=== PATIENT | male | born 1950 | race Caucasian/White ===

== ENCOUNTER → 2018-08-29 07:31 | Outpatient (CLI) | payer BC, SELFPAY ==
--- NOTE | 2018-08-29 09:22 | CPS ---
TELEPHONE ORDER GIVEN FROM DR. MATT LARSON OFFICE TO DO A COMPLETE PFT INSTEAD OF JUST PRE/POST SPIROMETERY
--- NOTE | 2018-08-29 14:07 | PFT ---
INTRODUCTION: The patient is a 67-year-old male that presents for pulmonary function studies secondary to a diagnosis of abnormal chest x-ray. Respiratory therapy reports good patient effort. Bronchodilators were used during testing. INTERPRETATION: Forced expiration spirometry demonstrates no evidence of a large airways obstructive ventilatory defect. There was no significant response to aerosolized bronchodilators, based upon strict ATS criteria. Spirograms are of fair quality and do not plateau indicating slow emptying of the lungs. Body plethysmography was performed and reveals lung volumes to be within normal limits. Diffusing capacity by single breath CO is within normal limits at 91% of predicted. IMPRESSION: Normal pulmonary function studies.
== END ==
PROVIDERS: Family Provider Family Medicine; PCP Family Medicine; Referring Provider Family Medicine; Visit Provider Family Medicine
DX: R93.89 Abnormal findings on diagnostic imaging of other specified body structures (principal)
CPT/HCPCS: 94060; 94726; 94729

== ENCOUNTER → 2018-09-08 00:02 | Outpatient (CLI) | payer BC, SELFPAY | PROVIDERS: Family Provider Family Medicine; PCP Family Medicine; Referring Provider Internal Medicine Critical Care Medicine; Visit Provider Internal Medicine Critical Care Medicine | DX: G47.33 Obstructive sleep apnea (adult) (pediatric) (principal) | CPT/HCPCS: 95811 ==

== ENCOUNTER → 2019-03-02 15:55 | Outpatient (CLI) | payer BC, SELFPAY ==
--- NOTE | 2019-03-02 16:02 | VDLE_ITS ---
Reason For Study: pain RIGHT LEFT CFV is compressible, spontaneous, phasic, GSV is normal. competent and demonstrates normal CFV is compressible, spontaneous, phasic, augmentation. competent, and demonstrates normal Procedure augmentation. Exam performed in department. FV is compressible, spontaneous, phasic, The exam was diagnostic. competent and demonstrates normal A preliminary report was called and/or faxed augmentation. to Dr. Esparza. POP V is compressible, spontaneous, phasic, competent and demonstrates normal augmentation. T/P Trunk is compressible. PTV is compressible. LT PerV is compressible. Interpretation Summary Deep veins of the left lower extremity are patent and compressible segmentally. There is no evidence of left lower extremity deep vein thrombosis. Valvular competence appears intact within the proximal deep venous system on the left . The left greater saphenous vein appears patent and compressible segmentally. Ordering Physician: Cyril Esparza Performed By: Jaret Mercer RVUriah
== END ==
PROVIDERS: Family Provider Family Medicine; PCP Family Medicine; Referring Provider Specialist; Visit Provider Specialist
DX: M79.662 Pain in left lower leg (principal)
CPT/HCPCS: 93971

== ENCOUNTER 2020-01-13 13:05 | Emergency (ER) | payer MEDICARE, SELFPAY ==
[2020-01-13 13:07] VITALS: BP 144/87; PULSE 97; RESP 18; TEMP 36.2; O2SAT 98; BMI 34.7
--- NOTE | 2020-01-13 13:09 | EKG12_ITS ---
Test Reason : DYSRHYTHMIA Blood Pressure : / mmHG Vent. Rate : 089 BPM Atrial Rate : 089 BPM P-R Int : 122 ms QRS Dur : 126 ms QT Int : 408 ms P-R-T Axes : 018 -45 -01 degrees QTc Int : 496 ms Normal sinus rhythm Left axis deviation Right bundle branch block Abnormal ECG Confirmed by JAYNE BELTRE, LIZABETH ([id number]), assignment desk editor PATRICIA QUINTANILLA ([id number]) on 01/16/2020 1:08:27 PM Referred By: EDINSON Confirmed By:LIZABETH GODOY MD
--- NOTE | 2020-01-13 13:09 | RAD_ITS ---
STUDY: X-RAY CHEST REASON FOR EXAM: Male, 69 years old. Chest pain, confusion TECHNIQUE: AP upright chest COMPARISON: None. FINDINGS: The lungs are clear, symmetrically and normally inflated. Normal cardiomediastinal silhouette, js and pleural margins. No acute osseous or upper abdominal abnormality. RAD/Chest 1 View (Portable) IMPRESSION: No acute cardiopulmonary process. Electronically Signed: Demetrio Castro MD at 14:17 EDT Tel , Service support ,
--- NOTE | 2020-01-13 13:10 | CT_ITS ---
STUDY: CT BRAIN WITHOUT CONTRAST REASON FOR EXAM: Male, 69 years old. CONFUSION RADIATION DOSAGE (If Supplied By Facility): CTDIvol = ( 44.99 ) mGy, DLP = ( 846.73 ) mGycm TECHNIQUE: Transaxial CT imaging of the brain was performed without administration of intravenous contrast material. Individualized dose optimization techniques were used for this CT. COMPARISON: No relevant priors. FINDINGS: Normal size ventricles and extra-axial spaces for the patient''s age. Normal white matter tracts of the cerebral hemispheres. Normal brainstem. Normal cerebellum. There is no intracranial hemorrhage. There are no findings of an acute ischemic infarction. Normal visualized paranasal sinuses. CT/Brain/Head without Contrast IMPRESSION: Normal unenhanced CT scan of the brain. Electronically Signed: Millicent Ag MD at 14:23 EDT Tel , Service support ,
[2020-01-13 13:16] LABS: Bedside Glucose 103 mg/dL (70-110)
--- NOTE | 2020-01-13 13:19 | ED.VIS.GEN ---
History of Present Illness Chief Complaint: Confusion Informant: Patient, Family Onset: Days Current Severity: Mild Maximum Severity: Mild Narrative: Patient presents with reports that for the last month or so the patient has developed intermittent episodes of confusion what where he does not know recognize things that he normally would. She indicates today he woke everything was normal had breakfast they were getting ready to go out he went into the shower took a shower came out of the shower did not recognize why he had taken the shower where they were going or that his clothing had been taken out by himself this lasted for about 10 minutes or so, he was brought to the hospital. No time did he injure himself, he is had no fever no cough chest pain shortness of breath no numbness weakness paresthesias, he has no history of MD PE DVT stroke or seizure, The reports that over the course of the last month he will simply not remember things such as he will not remember the day of the week and have to refer to his watch to tell him what day of the week it is, he is able to execute all of his daily living activities such as dressing eating bathing etc. He is very active he constantly does a variety of around the house type activities without difficulty Past Medical History - Allergies and Home Meds Allergies/Adverse Reactions: Allergies rivaroxaban [From Xarelto] Adverse Reaction (Intermediate, Verified 01/13/20 13:20) Rash cephalexin [From Keflex] Adverse Reaction (Mild, Verified 01/13/20 13:20) Rash clindamycin Adverse Reaction (Mild, Verified 01/13/20 13:20) GI upset Primary Care Physician: Nils Hernandez MD [Primary Care Provider] - Past Medical History: - - Psoriatic arthritis and as above Smoking Status: Former smoker Review of Systems General: Denies: Chills, Fever, Sweats Eyes: Denies: Visual changes - bilaterally, Diplopia ENT: Denies: Rhinorrhea, Sore throat Cardiovascular: Denies: Chest pain, Palpitations Respiratory: Denies: Dyspnea, Cough, Dyspnea on exertion Gastrointestinal: Denies: Abdominal pain, Nausea, Vomiting, Diarrhea, Melena, Hematochezia Genitourinary: Denies: Dysuria, Hematuria, Frequency Musculoskeletal: Denies: Back pain, Extremity Pain Skin: Denies: Rash, Wounds Neurological: Reports: - - Intermittent episodes of transient confusion. Denies: Headache, Weakness, Numbness Physical Exam Vital Signs/Narrative: Vital Signs Temp Pulse Resp BP Pulse Ox 01/13/20 13:07 97.1 F L 97 18 144/87 H 98 General: Well nourished, Well developed, No Acute Distress Head: Normocephalic, Atraumatic Eyes: Perrl, EOMI ENT: Moist mucous membranes, No rhinorrhea Neck: Supple, Nontender Cardiovascular: Regular rate, Regular rhythm, No murmurs Respiratory: No distress, CTA bilaterally, Chest nontender Abdomen: Soft, Nontender, Nondistended, Normal bowel sounds Back: Nontender, Normal Inspection Extremities: Nontender, No edema Skin: Normal color, No rash Neurological: Alert, Oriented x3, Cranial nerves II-XII grossly intact, Normal Strength, Normal Sensation, - - Patient is awake and alert moving all 4 extremities, his speech is normal vision is normal HEENT cranial nerves motor or sensory all negative NIH 0,He is awake and alert answering questions appropriately he has no obvious signs of confusion or any type of neurologic deficits. He does remember being in the shower he does not remember the confusion he had when he got out of the shower related to where his close were or why he could not remember where they were going and why he was taking a shower reports he is back to his baseline neurologically Psychological: Normal affect, Normal Mood Diagnostic/Tx/Re-eval - Medical Decision Making Transient confusion and intermittent episodes for over a month given all the above screening labs he has no headache no fever no cough he is able to execute all daily activities head CT Patient's ED screening evaluation head CT all generally unremarkable nothing acute see those reports, he has not provided a urine sample, he indicates he does not have any UTI symptoms and simply does not feel the urge to void the has asked him to try to void as she would like to check before he leaves, His EKG shows a sinus rhythm with a right bundle branch block that he is had before per the who is a dietitian is very familiar with his health status Patient is remained awake and alert no recurrence of the confusion we discussed with the patient his the differential including life-threatening conditions discussed inpatient versus outpatient management they are comfortable with discharge home to follow-up with outpatient providers for additional diagnostic management he will return for change in symptoms I have asked the afternoon physicians to check his UA if there is any signs of UTI he will be placed on Cipro and the urine culture will be sent, he is currently drinking [employer] Home stable Final impression transient confusion episodes for a month intermittently etiology unclear ED Disposition - Plan for ED Patient: Diagnosis: Transient confusion Instructions: ED Confusion Prescriptions: Ciprofloxacin [Cipro] 500 mg PO BID #14 tab Prescription Printed Referrals: Nils Hernandez MD [Primary Care Provider] -
[2020-01-13 13:20] VITALS: O2SAT 97
--- NOTE | 2020-01-13 13:24 | ED.RN ---
no old ekgs. dr rome notified
[2020-01-13 13:27] LABS: Absolute Lymphocyte Count 1.72 X10^3/uL (0.83-4.51); Absolute Neutrophil Count 3.6 X10^3/uL (2.0-7.7); Basophil# 0.03 X10^3/uL; Basophil% 0.5 % (0-1); Eosinophil# 0.18 X10^3/uL; Eosinophils% 2.9 % (0-5); Hematocrit 44.8 % (40-54); Hemoglobin 14.4 g/dL (13.0-16.5); Lymphocyte # 1.72 X10^3/ul (4.0); Lymphocyte % 27.9 % (19-41); Mean Corp Hgb Conc 32.1 g/dL (32-36); Mean Corpuscular Hgb 29.8 pg (27.0-32.0); Mean Corpuscular Volume 92.6 fL (80-94); Mean Platelet Vol. 8.9 fl (6.2-12.0); Monocyte# 0.58 X10^3/uL; Monocyte% 9.4 % (0-10); NRBC Flagged by Analyzer 0 % (0-5); Neutrophil # 3.61 X10^3/uL (2.7-7.7); Neutrophil % 58.7 % (47-70); Platelet Count 317 K/mm3 (150-450); RBC Distribution Width CV 13.6 % (11.6-14.6); RBC Distribution Width SD 46.5 fl (35.1-43.9); Red Blood Count 4.84 M/mm3 (4.6-6.2); White Blood Count 6.2 K/mm3 (4.4-11.0)
[2020-01-13 13:40] LABS: Anion Gap 6 (5-15); BUN 11 mg/dL (7-18); BUN/Creat Ratio 14.1 RATIO (10-20); Calcium,Total 8.8 mg/dL (8.5-10.1); Chloride 107 mmol/L (98-107); Creatinine, Serum 0.78 mg/dL (0.70-1.30); EST Glomerular Filtration Rate 105 mL/min (>60); Est Glom Filt Rate - Afr Amer 127 mL/min (>60); Estimated Creatinine Clearance 85.67 ml/min; Glucose 108 mg/dL (74-106); Potassium 3.8 mmol/L (3.5-5.1); Sodium Level 141 mmol/L (136-145)
[2020-01-13 13:49] LABS: BNP,B-Type NATRIURETIC PEPTIDE 21.7 pg/mL (0-100)
[2020-01-13 14:39] VITALS: BP 114/91; PULSE 88; RESP 17; O2SAT 96
[2020-01-13 15:23] LABS: Bacteria 0 SEEN /hpf (None Seen); Mucous, Urine 0 SEEN /hpf (<or=2+); Red Blood Cells-Urine 0 SEEN /hpf (0-5)
[2020-01-13 15:28] LABS: Glucose, Dipstick Normal (Normal); Ketone-Dipstick Negative (Negative); Leukocyte Esterase-Dipstick 25 /ul (Negative); Nitrite-Dipstick Negative (Negative); Occult Blood-Urine Negative /ul (Negative); Protein-Dipstick Negative (Negative); Specific Gravity, Urine 1.025 (1.002-1.030); Urine Bilirubin Dipstick Negative (Negative); Urine Urobilinogen Normal (Normal)
[2020-01-13 15:39] LABS: Color, Urine Yellow (Yellow)
[2020-01-13 15:40] LABS: Squamous Epithelial Cells - UA 0-5 SEEN /hpf (0-5); Urine Clarity Sl Cldy (Clear); White Blood Cells 0-5 SEEN /hpf (0-5)
[2020-01-13 16:25] VITALS: BP 118/91; PULSE 80; RESP 17; O2SAT 98
== END 2020-01-13 16:27 | disposition home or self-care (01) ==
LOC: ED 14:45
PROVIDERS: Emergency Provider Emergency Medicine; PCP Family Medicine
DX: R41.0 Disorientation, unspecified (principal); L40.50 Arthropathic psoriasis, unspecified; Z79.899 Other long term (current) drug therapy; Z88.1 Allergy status to other antibiotic agents; Z87.891 Personal history of nicotine dependence
CPT/HCPCS: 70450; 71045; 80048; 81001; 82962; 83880; 84484; 85025; 93005; 99284

== ENCOUNTER → 2020-01-15 16:16 | Outpatient (CLI) | payer MEDICARE, OTHER, SELFPAY ==
[2020-01-13 13:07] VITALS: BMI 34.7
--- NOTE | 2020-01-15 16:45 | MRI_ITS ---
STUDY: MRI BRAIN WITHOUT CONTRAST REASON FOR EXAM: Male, 69 years old. Episode of AMS 3 days ago TECHNIQUE: Standardized multiplanar fat and water weighted pulse sequences were obtained. COMPARISON: CT 01/13/2020 FINDINGS: Normal size of the ventricles and extra-axial spaces for the patient''s age. Normal white matter tracts of the supratentorial brain. Normal bilateral basal ganglia. Normal thalami. There is no extra-axial fluid accumulation. Normal flow voids within the major intracranial circulation suggesting patency by spin echo criteria. Normal sella turcica, pituitary gland, infundibular stalk, optic chiasm and hypothalamus. Normal tectal plate and pineal gland. Normal midbrain, shantell and medulla. Normal cerebellum. Normal basal cisterns. Normal bilateral temporal bones. Normal bilateral internal auditory canals. No demonstrated orbital abnormality, within the constraints of a routine brain study. Normal visualized paranasal sinuses. Normal calvarium and skull base. Normal visualized soft tissue structures. Normal visualized upper cervical spine. MRI/Brain without Contrast IMPRESSION: No evidence of acute infarct or hemorrhage. Electronically Signed: Vicente Anguiano MD at 17:41 EDT Tel , Service support ,
== END ==
PROVIDERS: PCP Family Medicine; Referring Provider Family Medicine; Visit Provider Family Medicine
DX: F44.1 Dissociative fugue (principal)
CPT/HCPCS: 70551

== ENCOUNTER 2020-10-07 13:00 | Outpatient (RCR) | payer MEDICARE, OTHER, SELFPAY ==
[2020-05-22 08:15] VITALS: BMI 34.9
--- NOTE | 2020-07-23 12:24 | HP.OTEVAL ---
Patient's Visit Information NASH FERGUSON is a 69 year old M, referred to Occupational Therapy by DIVINA SERRA, with a diagnosis of left wrist SLAC. Date of Evaluation: 07/23/20 Occupational Therapist: Joy Nava, HELDER/Chandrika, CHT - Subjective This 69 year old male was seen for OT with dx of SLAC of left wrist. pt states sx was on where he did a CTR and proximal row carpectamy. pt arrives to center with soft left wrist cock -up brace on. Pt sates he is probably using it more than he should. pt is right handed. pt is swollen and tight - Pain left wrist 4 Pain Intensity Range: 0, 3 - ROM Elbow: right 0/140 left 0/140 Forearm: right supination 50 left 75 suppination Wrist: right 70 /60 left 25/30 ROM Comments: pt demo with fair ROM - Strength Stem Processing Machine Operator: right 80# left will test later date Lateral Pinch: right 19# left will test later date Tripod Pinch: right 18# left will test later date - Edema Elbow: right 30cm left 29cm Wrist: right 20cm left 22cm PIP: right 7.5cm left 7.5cm Other: right MCP 23cm left 24.5cm - Sensation Thumb: right 3.22 left 2.83 Index: right 3.61 left 3.22 Middle: right 2.83 left 3.22 Ring: right 2.83 left 2.83 Little: right 2.83 left 2.83 - Quick DASH-Disab of Arm,Shoulder& Hand Quick DASH Score: 52.2725 - Goals Goal:100% adherence to protocol: Yes Goal:Daily scar massage when approriate: Yes Goal:ROM equal to unaffected hand: Yes Comment: wrist at 45/35 or greate as joaquin Goal:Stem Processing Machine Operator/Pinch strength at least 75% of unaffected hand: Yes Goal:No pain with affected hand use: Yes Goal:PIP Circumferences equal to unaffected hand: Yes Goal:Full use of affected hand in daily activities including: Yes Goal:Decrease scar hypersensitivity: Yes Other Goal: s/p 4 wks transition to cock-up wrist brace and begin gentle AROM wrist. s/p 6wks begin PROM wrist and wean from brace. s/p 8 wks begin strengthening - Rehabilitation General Assessment: pt is 5 weeks and 1 days s/p from a left ulnar nerve and median nerve release and a left proximal row carpectamy. pt has swelling and discomfort with use of his left hand with ADLs and IADLs. pt would benefit from skilled OT services 1-2 x week for [address] Rhodes. s/p 4 wks transition to cock-up wrist brace and begin gentle AROM wrist. s/p 6wks begin PROM wrist and wean from brace. s/p 8 wks begin strengthening Rehabilitation Potential: Good - Anticipated Interventions A/AAROM/PROM, Edema Control, Scar Care, Triggerpoint Release, Desensitization, Sensory Retraining, Modalities, Orthoses, Joint Protection/Energy Conservation, Ergonomic Education - Visit Plan Frequency: 1-2x /Week TEXT: Thank you for the opportunity to evaluate your patient. For Medicare and Medicare HMO plans, please review the plan of care and approve it. It will need to be FAXED BACK to us at [phone] for Medicare purposes. Please let me know if there are questions or concerns regarding this plan of care. Physician Signature: Date:
--- NOTE | 2020-10-07 13:29 | HP.OTDCSUM_ITS ---
It has been my pleasure to treat NASH FERGUSON under orders from DIVINA SERRA, for the diagnosis of left wrist SLAC for a total of 12 visit(s). Please see the following information for a summary of their discharge status. % Improvement: 90 Objective/Function: left research project coordinator strength 38#. left lateral pinch 8#. left tripod pinch 6#. wrist 30/35. pt states he is performing all his ADls and IADls. states he does wear his wrist brace with yard work and heavy house work. Due to cmc pain with daily tasks pt is using k-tape to support CMC - pt likes this and states tape makes his tumb feel more stable. with monofilament testing pts IF and MF sensation has improved to 2.83 = normal sensation. therapist has advised pt to continue with ADLs to what pts pain level allows. Patient Goals: Decrease Swelling/Stiffness, Use Hand/Wrist/Arm Normally Again Goal:100% adherence to protocol: Yes Goal:Daily scar massage when approriate: Yes Goal:ROM equal to unaffected hand: Yes Goal:Pointing Machine Operator/Pinch strength at least 75% of unaffected hand: Yes Goal:No pain with affected hand use: Yes Goal:PIP Circumferences equal to unaffected hand: Yes Goal:Full use of affected hand in daily activities including: Yes Goal:Decrease scar hypersensitivity: Yes Other Goal: s/p 4 wks transition to cock-up wrist brace and begin gentle AROM wrist. s/p 6wks begin PROM wrist and wean from brace. s/p 8 wks begin strengthening Plan: D/C Discharge Comments: pt has been seen 12 OT visits following a left wrist proximal row carpectamy, and left CTR swelling is down but pt continues to stuggles with some edema but per pt he had swelling prior to procerdure. pt has gained ROM and strength to perform his ADLs and IADLs at SRINATH level. pt therapsit ed. pt on his dx and procedure and to cont with joint protection in daily tasks to limit joint stress. pt demo understanding and agree to D/C. If there are questions or concerns regarding this patient's occupational therapy, please fell free to call me at [phone]. Thank you for the referral of this patient. Sincerely, Joy Nava, OTR/L, CHT
== END 2020-10-07 13:47 | disposition home or self-care (01) ==
LOC: OT 13:00
PROVIDERS: PCP Family Medicine
DX: M19.132 Post-traumatic osteoarthritis, left wrist (principal); Z98.890 Other specified postprocedural states
CPT/HCPCS: 97110; 97140; 97166; 97530

== ENCOUNTER 2020-10-15 16:25 | Emergency (ER) | payer MEDICARE, OTHER, SELFPAY ==
[2020-05-22 08:15] VITALS: BMI 34.9
[2020-10-15 16:27] VITALS: BP 134/101; PULSE 102; RESP 17; TEMP 36; O2SAT 97; BMI 35.4
[2020-10-15 16:29] VITALS: BP 134/101; PULSE 104; RESP 17; O2SAT 96
--- NOTE | 2020-10-15 17:19 | CT_ITS ---
STUDY: CT ABDOMEN AND PELVIS WITH CONTRAST REASON FOR EXAM: Male, 69 years old. Scrotal swelling, pain RADIATION DOSAGE (If Supplied By Facility): CTDIvol = ( 24.86 ) mGy, DLP = ( 2310.15 ) mGycm TECHNIQUE: Transaxial images were obtained from the dome of the diaphragm to the symphysis pubis without oral contrast. IV 100mL Isovue-300 was administered. Sagittal and coronal images were reconstructed. Individualized dose optimization techniques were used for this CT. COMPARISON: None. FINDINGS: The visualized lung bases are unremarkable. The visualized portions of the heart are within normal limits. There is hepatomegaly with diffuse hepatic enlargement. Normal gallbladder and extrahepatic biliary system. Normal spleen. There is 1.9 cm cyst at the tail of the pancreas, series 2 image 20/171. There is 2.1 cm left adrenal nodule. There are 0.2 and 0.4 cm stones in the lower aspect of the right kidney. There is 1.8 cm cyst of the left kidney. Normal visualized stomach. Normal small intestine. There are multiple colonic diverticula consistent with diverticulosis. The appendix is visualized and appears normal. Atherosclerotic calcific changes of the aorta. 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 Normal inferior vena cava. Normal retroperitoneum. Normal urinary bladder. There is no free fluid in the abdomen or pelvis. There are bilateral scrotal hydroceles. Inguinal and iliac lymph nodes measure up to 2.1 cm on the right. Degenerative change of the spine. Bilateral hip replacements. CT/Abdomen/Pelvis W IV Cont ONLY IMPRESSION: Right renal stones. No hydronephrosis. Colonic diverticulosis. No obstruction. Hepatomegaly. No biliary dilatation. Left adrenal nodule. Scrotal hydroceles. Electronically Signed: Deep De La Cruz MD at 20:13 EDT , Service support ,
--- NOTE | 2020-10-15 17:21 | US_ITS ---
STUDY: SCROTUM ULTRASOUND REASON FOR EXAM: Male, 69 years old. Swelling .pain- RT TESTICLE TECHNIQUE: Ultrasound evaluation of the scrotum was performed with color Doppler and static mccartney-scale imaging. COMPARISON: None. FINDINGS: RIGHT TESTICLE INTRATESTICULAR: There is a normal size of the right testicle. The right testicle measures 4.1 x 3.1 x 3.1 cm. There is a homogenous echotexture. There is increased arterial and increased venous vascularity. There is no demonstrated right testicular mass or cyst. EXTRATESTICULAR: The epididymis is enlarged. The epididymis head measures 1.6 cm. There is increased (hyperemic) vascularity of the epididymis. There is no demonstrated epididymal cystic structure. There is a large hydrocele with septations and debris. There is no demonstrated varicocele. There is no demonstrated extratesticular mass or cyst. There is scrotal skin thickening. LEFT TESTICLE INTRATESTICULAR: There is a normal size of the left testicle. The left testicle measures 4.0 x 3.0 x 2.3 cm. There is a homogenous echotexture. There is normal arterial and normal venous vascularity. There is no demonstrated left testicular mass or cyst. EXTRATESTICULAR: The epididymis is normal in size. The epididymis head measures 1.2 cm. There is normal vascularity of the epididymis. There is no demonstrated epididymal cystic structure. There is a moderate size hydrocele. There is no demonstrated varicocele. There is no demonstrated extratesticular mass or cyst. US/Testicular with Arterial Flow IMPRESSION: Right epididymoorchitis. Right larger than left hydroceles. Electronically Signed: Deep De La Cruz MD at 20:08 EDT , Service support ,
[2020-10-15] MEDS: Morphine 4 MG/ML Syringe IV (17:39)
[2020-10-15] MEDS: 0.9% Normal Saline 1,000 ML 1000 ML IV (17:39)
[2020-10-15 18:06] LABS: Absolute Lymphocyte Count 1.61 X10^3/uL (0.83-4.51); Basophil# 0.05 X10^3/uL; Basophil% 0.4 % (0-1); Eosinophil# 0.06 X10^3/uL; Eosinophils% 0.5 % (0-5); Hematocrit 43.6 % (40-54); Lymphocyte # 1.61 X10^3/ul (4.0); Lymphocyte % 12.8 % (19-41); Mean Corp Hgb Conc 32.1 g/dL (32-36); Mean Corpuscular Hgb 29.6 pg (27.0-32.0); Mean Corpuscular Volume 92.2 fL (80-94); Mean Platelet Vol. 9.1 fl (6.2-12.0); Monocyte# 0.82 X10^3/uL; Monocyte% 6.5 % (0-10); NRBC Flagged by Analyzer 0 % (0-5); Neutrophil # 9.96 X10^3/uL (2.7-7.7); Neutrophil % 79.3 % (47-70); Platelet Count 318 K/mm3 (150-450); RBC Distribution Width CV 13.7 % (11.6-14.6); RBC Distribution Width SD 46.6 fl (35.1-43.9); Red Blood Count 4.73 M/mm3 (4.6-6.2); White Blood Count 12.6 K/mm3 (4.4-11.0)
--- NOTE | 2020-10-15 18:15 | ED.DCSUM_ITS ---
History of Present Illness Chief Complaint: Male Pain/Injury Informant: Patient Onset: Yesterday Context: Gradual Onset Timing: Continuous Narrative: Patient is a 69-year-old male with history of diabetes mellitus and psoriasis presenting with worsening testicular pain and swelling. Is on the left side. He first noticed it yesterday evening some mild pain when he was urinating. Over the next 3 to 4 hours it progressively worsens, or severe. He has had significant swelling. He saw his primary care doctor today who sent him to the emergency room for further evaluation. Patient denies any associated fever or c hills. He denies any dysuria or hematuria. He denies any GI symptoms. States he never had any like this before. Denies any trauma. No other complaints at this time. Past Medical History - Allergies and Home Meds Allergies/Adverse Reactions: Allergies rivaroxaban [From Xarelto] Adverse Reaction (Intermediate, Verified 10/15/20 16:27) Rash cephalexin [From Keflex] Adverse Reaction (Mild, Verified 10/15/20 16:27) Rash clindamycin Adverse Reaction (Mild, Verified 10/15/20 16:27) GI upset Primary Care Physician: Nils Hernandez MD [Primary Care Provider] - Past Medical History: - - Psoriatic arthritis, diabetes mellitus, obstructive sleep apnea Surgical History: noncontributory Smoking Status: Never smoker Review of Systems General: Reports: Malaise. Denies: Chills, Fever, Sweats Eyes: Denies: Visual changes - bilaterally, Diplopia ENT: Denies: Rhinorrhea, Sore throat Cardiovascular: Denies: Chest pain, Palpitations Respiratory: Denies: Dyspnea, Cough, Dyspnea on exertion Gastrointestinal: Denies: Abdominal pain, Nausea, Vomiting, Diarrhea, Melena, Hematochezia Genitourinary: Reports: - - testicular pain and swelling L>R. Denies: Dysuria, Hematuria, Frequency Musculoskeletal: Denies: Back pain, Extremity Pain Skin: Denies: Rash, Wounds Neurological: Denies: Headache, Weakness, Numbness Physical Exam Vital Signs/Narrative: Vital Signs Temp Pulse Resp BP Pulse Ox 10/15/20 16:29 104 H 17 134/101 H 96 10/15/20 16:27 96.8 F L 102 H 17 134/101 H 97 Inital Vital Signs reviewed: Yes General: Well nourished, Well developed, Obese, No Acute Distress Head: Normocephalic, Atraumatic Eyes: Perrl, EOMI ENT: Moist mucous membranes, No rhinorrhea Neck: Supple, Nontender Cardiovascular: Regular rate, Regular rhythm, No murmurs Respiratory: No distress, CTA bilaterally, Chest nontender Abdomen: Soft, Nontender, Nondistended, Normal bowel sounds : - - Significant edema of the scrotum bilaterally. Associated erythema. No crepitus or induration appreciated. Difficult to evaluate cremasteric reflex secondary to edema. Significant pain to palpation especially over the posterior aspect of the left testicle. Back: Nontender, Normal Inspection. Negative for: CVA tenderness Extremities: Nontender, No edema Skin: Normal color, No rash, - - Scattered psoriatic rash. Patient does have erythema of his testicles extending up towards his mons pubis. Patient's not sure if this is chronic from his psoriasis or if this is acute. Neurological: Alert, Oriented x3, Cranial nerves II-XII grossly intact, Normal Strength, Normal Sensation Psychological: Normal affect, Normal Mood Diagnostic/Tx/Re-eval Clinical Impression(s) from Imaging Studies Abdomen/Pelvis CT 10/15/20 17:19 IMPRESSION: Right renal stones. No hydronephrosis. Colonic diverticulosis. No obstruction. Hepatomegaly. No biliary dilatation. Left adrenal nodule. Scrotal hydroceles. Electronically Signed: Deep De La Cruz MD at 20:13 EDT , Service support , Testicular Ultrasound 10/15/20 17:21 IMPRESSION: Right epididymoorchitis. Right larger than left hydroceles. Electronically Signed: Deep De La Cruz MD at 20:08 EDT , Service support , Laboratory Data 10/15/20 10/15/20 10/15/20 17:30 17:30 19:02 WBC 12.6 H RBC 4.73 Hgb 14.0 Hct 43.6 MCV 92.2 MCH 29.6 MCHC 32.1 RDW Std Deviation 46.6 H RDW Coeff of Benjamní 13.7 Plt Count 318 MPV 9.1 Immature Gran % (Auto) 0.500 Neut % (Auto) 79.3 H Lymph % (Auto) 12.8 L Kemper % (Auto) 6.5 Eos % (Auto) 0.5 Baso % (Auto) 0.4 Absolute Neuts (auto) 10.0 H Absolute Lymphs (auto) 1.61 Nucleated RBC % 0 Sodium 139 Potassium 3.7 Chloride 103 Carbon Dioxide 31.0 Anion Gap 5 BUN 9 Creatinine 0.81 Estim Creat Clear Calc 105.77 Est GFR (MDRD) Af Amer 122 Est GFR (MDRD) Non-Af 101 BUN/Creatinine Ratio 11.1 Glucose 109 H Calcium 8.8 Total Bilirubin 0.80 AST 11 L ALT 27 Alkaline Phosphatase 94 Total Protein 7.4 Albumin 3.5 Globulin 3.9 Albumin/Globulin Ratio 0.9 Urine Color Yellow Urine Clarity Sl. Cloudy Urine pH 5.0 Ur Specific Rye 1.015 Urine Protein 15 H Urine Glucose (UA) Normal Urine Ketones Negative Urine Occult Blood 50 H Urine Nitrite Positive H Urine Bilirubin Negative Urine Urobilinogen Normal Ur Leukocyte Esterase 500 H Urine RBC 0-5 SEEN Urine WBC 50-100 SEEN Ur Squamous Epith Cells 0 SEEN Urine Bacteria RARE Urine Mucus 0 SEEN - Medical Decision Making Evaluated for pain and swelling of his testicles. Pain is worse on the left. Patient is significant edema as well as erythema of his scrotum. Patient does have a history of diabetes mellitus. Differential includes epididymitis, torsio n and possible early Dali's. Lactate obtained as well as ultrasound and CT of the abdomen pelvis. No free air was found. Evaluation does show a leukocytosis that is mild.CMP shows mild elevated glucose of 109. Urinalysis is consistent with inflammation with 50-100 white blood cells with rare bacteria. Ultrasound shows right epididymoorchitis and bilateral hydroceles. Patient is low risk for STI and placed on Levaquin. He is given first dose the emergency room. He is discharged home with a course of tramadol to use for pain as needed. He is given urology for outpatient follow-up. He is counseled on return precautions. Given that there is no free air, elevated lactate or other concerning findings on blood work or CT I do not think he has Dali's. Patient is counseled on return precautions. He verbalizes agreement understand this plan. Discharged home in stable condition. ED Disposition - Plan for ED Patient: Disposition: Home or Assisted Living Diagnosis: Epididymo-orchitis, acute Instructions: ED Epididymitis, ED Orchitis Prescriptions: levoFLOXacin tablet [Levaquin] 500 mg PO DAILY #20 tablet Transmission Status: Pending to [facility]/pharmacy #[id number] traMADol [Ultram] 50 mg PO Q4H PRN PRN 3 Days #20 tablet PRN Reason: Pain Transmission Status: Received by [facility]/pharmacy #[id number] Referrals: Nils Hernandez MD [Primary Care Provider] - Tom Douglas MD [STAFF PHYSICIAN] -
[2020-10-15 18:21] LABS: ALB/GLOB Ratio 0.9 RATIO (0.9-2.4); AST(SGOT) 11 U/L (15-37); Alanine Aminotransfer ALT/SGPT 27 U/L (16-61); Albumin, Serum 3.5 g/dL (3.2-5.0); Alkaline Phosphatase 94 U/L (45-117); Anion Gap 5 (5-15); BUN 9 mg/dL (7-18); BUN/Creat Ratio 11.1 RATIO (10-20); Calcium,Total 8.8 mg/dL (8.5-10.1); Chloride 103 mmol/L (98-107); Creatinine, Serum 0.81 mg/dL (0.70-1.30); EST Glomerular Filtration Rate 101 mL/min (>60); Est Glom Filt Rate - Afr Amer 122 mL/min (>60); Estimated Creatinine Clearance 105.77 ml/min; Globulin 3.9 g/dL (2.2-4.2); Glucose 109 mg/dL (74-106); Potassium 3.7 mmol/L (3.5-5.1); Protein, Total 7.4 g/dL (6.4-8.2); Sodium Level 139 mmol/L (136-145)
[2020-10-15 18:26] VITALS: BP 120/80; PULSE 96; RESP 18; O2SAT 97
[2020-10-15 19:09] LABS: Mucous, Urine 0 SEEN /hpf (<or=2+); Squamous Epithelial Cells - UA 0 SEEN /hpf (0-5)
[2020-10-15 19:14] LABS: Color, Urine Yellow (Yellow); Glucose, Dipstick Normal (Normal); Ketone-Dipstick Negative (Negative); Leukocyte Esterase-Dipstick 500 /ul (Negative); Nitrite-Dipstick Positive (Negative); Occult Blood-Urine 50 /ul (Negative); Protein-Dipstick 15 mg/dl (Negative); Specific Gravity, Urine 1.015 (1.002-1.030); Urine Bilirubin Dipstick Negative (Negative); Urine Clarity Sl. Cloudy (Clear); Urine Urobilinogen Normal (Normal)
[2020-10-15 19:20] LABS: White Blood Cells 50-100 SEEN /hpf (0-5)
[2020-10-15 19:21] LABS: Bacteria RARE /hpf (None Seen); Red Blood Cells-Urine 0-5 SEEN /hpf (0-5)
[2020-10-15 20:00] VITALS: BP 115/75; PULSE 95; RESP 18; O2SAT 98
[2020-10-15 21:43] VITALS: BP 121/81; PULSE 72; RESP 18; O2SAT 95
[2020-10-15] MEDS: levoFLOXacin 750 MG Tablet PO (21:48)
== END 2020-10-15 21:52 | disposition home or self-care (01) ==
PROVIDERS: Emergency Provider Emergency Medicine; PCP Family Medicine
DX: N45.3 Epididymo-orchitis (principal); N43.3 Hydrocele, unspecified; E11.65 Type 2 diabetes mellitus with hyperglycemia; L40.50 Arthropathic psoriasis, unspecified; G47.33 Obstructive sleep apnea (adult) (pediatric); E66.9 Obesity, unspecified; Z79.84 Long term (current) use of oral hypoglycemic drugs; Z79.82 Long term (current) use of aspirin; Z79.899 Other long term (current) drug therapy
CPT/HCPCS: 74177; 76870; 80053; 81001; 85025; 87040; 87077; 87086; 87088; 87186; 93976; 96361; 96374; 99284; J7030; Q9967

== ENCOUNTER 2021-08-21 14:54 | Outpatient (CLI) | payer MEDICARE, OTHER, SELFPAY ==
[2021-08-21 17:27] LABS: Absolute Lymphocyte Count 1.96 X10^3/uL (0.83-4.51); Absolute Neutrophil Count 4.1 X10^3/uL (2.0-7.7); Basophil# 0.05 X10^3/uL; Basophil% 0.7 % (0-1); Eosinophil# 0.14 X10^3/uL; Hematocrit 42.8 % (40-54); Hemoglobin 13.5 g/dL (13.0-16.5); Lymphocyte # 1.96 X10^3/ul (0.83-4.51); Lymphocyte % 28.4 % (19-41); Mean Corp Hgb Conc 31.5 g/dL (32-36); Mean Corpuscular Hgb 29.2 pg (27.0-32.0); Mean Corpuscular Volume 92.6 fL (80-94); Mean Platelet Vol. 9.5 fl (6.2-12.0); Monocyte# 0.58 X10^3/uL; Monocyte% 8.4 % (0-10); NRBC Flagged by Analyzer 0 % (0-5); Neutrophil # 4.11 X10^3/uL (2.7-7.7); Neutrophil % 59.8 % (47-70); Platelet Count 326 K/mm3 (150-450); RBC Distribution Width CV 14.5 % (11.6-14.6); RBC Distribution Width SD 49.1 fl (35.1-43.9); Red Blood Count 4.62 M/mm3 (4.6-6.2); White Blood Count 6.9 K/mm3 (4.4-11.0)
[2021-08-21 17:34] LABS: Erythrocyte Sedimentation Rate 25 mm/hr (0-20)
[2021-08-21 17:45] LABS: CRP 4.96 mg/L (0.0-3.0)
== END 2021-08-21 23:59 | disposition short-term general hospital (02) ==
PROVIDERS: PCP Family Medicine; Referring Provider Orthopaedic Surgery; Visit Provider Orthopaedic Surgery
DX: M16.12 Unilateral primary osteoarthritis, left hip (principal); Z96.642 Presence of left artificial hip joint
CPT/HCPCS: 36415; 85025; 85652; 86140

== ENCOUNTER → 2022-11-23 | Outpatient (CLI) | payer MEDICARE, OTHER, SELFPAY ==
--- NOTE | 2022-11-23 14:01 | ECHOD_ITS ---
Reason For Study: MURMUR Procedure This was a 2D Doppler, Color Flow transthoracic echocardiogram. The study was technically difficult. Due to body habitus. Contrast injection was performed. Exam performed in department. Left Ventricle Normal LV size. Mild concentric left ventricular hypertrophy. Left ventricular systolic function is normal. The estimated ejection fraction is 65 %. Stage 1 diastolic dysfunction. No regional wall motion abnormalities noted. Right Ventricle Normal RV size. Normal systolic function. Atria Normal left atrium. Normal right atrium. Mitral Valve Normal mitral valve. Tricuspid Valve Normal tricuspid valve. Aortic Valve Trisinus/trileaflet aortic valve. Mild diffuse aortic valve thickening. Pulmonic Valve Normal pulmonic valve. Great Vessels Normal aortic root. The pulmonary artery is normal size. Normal inferior vena cava. Pericardium/Pleural No pericardial effusion. Medication 22 gauge I.V. with prn adaptor inserted into right arm. Diluted definity 3.0ml given slow IV push to enhance endocardial definition. MMode/2D Measurements & Calculations LVIDd: 4.7 cm IVSd: 1.2 cm LVOT diam: 2.7 cm LVIDs: 2.5 cm LVPWd: 1.2 cm RVDd: 4.3 cm FS: 47.3 % LVOT area: 5.8 cm2 Ao root diam: 3.7 cm LAV(MOD-bp): 98.3 ml EDV(MOD-sp4): 120.4 ml LAV(MOD-bp) Indexed: 39.0 ml/m2 ESV(MOD-sp4): 32.4 ml LAV(MOD-sp2): 92.5 ml EF(MOD-sp4): 73.1 % LAV(MOD-sp4): 92.6 ml EDV(MOD-sp2): 101.3 ml SV(MOD-sp4): 88.1 ml SV(MOD-sp2): 78.0 ml ESV(MOD-sp2): 23.3 ml EF(MOD-sp2): 77.0 % LA dimension(2D): 5.2 cm Time Measurements MV dec time: 0.25 sec Doppler Measurements & Calculations MV E max thang: 104.9 cm/sec Lat Peak E' Thang: 6.9 cm/sec Med Peak E' Thang: 7.3 cm/sec MV A max thang: 113.1 cm/sec E/E' lat: 15.3 E/E' med: 14.5 MV E/A: 0.93 Ao V2 max: 261.5 cm/sec LV V1 max: 123.6 cm/sec SV(LVOT): 135.1 ml Ao max P.5 mmHg LV V1 max P.1 mmHg Ao V2 mean: 176.5 cm/sec LV V1 mean P.9 mmHg Ao mean P.3 mmHg LV V1 mean: 94.3 cm/sec Ao V2 VTI: 50.8 cm LV V1 VTI: 23.4 cm AV (velocity ratio): 0.46 ANITA(I,D): 2.7 cm2 ANITA(V,D): 2.7 cm2 PA V2 max: 128.0 cm/sec PA V2 mean: 88.7 cm/sec ECHO/Echo Complete W/ Contrast Interpretation Summary Normal LV size. Mild concentric left ventricular hypertrophy. Left ventricular systolic function is normal. The estimated ejection fraction is 65 %. Stage 1 diastolic dysfunction. Contrast injection was performed. Ordering Physician: Topher Poe Referring Physician: Josefina Schwarz Performed By: Veronica Moffett RDCS, RVT
== END | disposition home or self-care (01) ==
LOC: CVS 13:58
PROVIDERS: PCP Registered Nurse; Referring Provider Internal Medicine Cardiovascular Disease; Visit Provider Internal Medicine Cardiovascular Disease
DX: G47.33 Obstructive sleep apnea (adult) (pediatric) (principal); R01.1 Cardiac murmur, unspecified
CPT/HCPCS: 93306; Q9957; A4216; C8929

== ENCOUNTER → 2023-08-18 | Outpatient (CLI) | payer MEDICARE, OTHER, SELFPAY ==
--- OUTSIDE RECORDS SUMMARY | 2023-08-18 12:17 | XMS RPT_ITS | CCD ---
Author Name Unknown Address [address] [place] [address] Organization [facility] Care Team Providers Care Circulation Assistant Name Role Phone Matt Hernandez Unavailable Unavailable Unavailable Unavailable Matt Hernandez Unavailable Unavailable Matt Hernandez Unavailable Unavailable Matt Hernandez Unavailable Unavailable Matt Hernandez Unavailable Unavailable MATT HERNANDEZ Unavailable Unavailable Matt Hernandez Primary Care Provider Sarah Loera Primary Care Provider [phone] Matt Hernandez Primary Care Provider Matt Hernandez Primary Care Provider Mark Mason Unavailable [phone] Mark Mason Unavailable [phone] Matt Hernandez Primary Care Provider ISAI PAGE Attending Unavailable ISAI PAGE Referring Unavailable MATT HERNANDEZ Primary Care Unavailable ISAI PAGE Attending Unavailable ISAI PAGE Referring Unavailable MATT HERNANDEZ Primary Care Unavailable MARK MASON Attending Unavailable MARK MASON Referring Unavailable MATT HERNANDEZ Primary Care Unavailable Matt Hernandez Primary Care Provider Matt Hernandez Primary Care Provider Mark Mason Unavailable [phone] Matt Hernandez MD Primary Care Provider Mark Mason MD Unavailable MARTA FALL Primary Care Physician Makr Mason MD Unavailable System, Provider Not In Primary Care Provider Un available [facility] Matt Hernandez MD Primary Care Provider Mark Mason MD Unavailable [phone] System, Provider Not In Primary Care Provider Un available Matt Hernandez MD Primary Care Provider WAQAR PUBLIC SERVICE DIRECTOR-PATRON ATTENDANT, LETTY A Primary Care Physi waldo MARK MASON Attending Unavailable SYSTEM, PROVIDER NOT IN Primary Care Unavaila CATINA Estrada MD Attending Unavailable [employer] PUBLIC SERVICE DIRECTOR-PATRON ATTENDANT, LETTY A Primary Care Un available CATINA VANCE MD Attending Unavailable [employer] PUBLIC SERVICE DIRECTOR-PATRON ATTENDANT, LETTY A Primary Care Un available SEFFENS PUBLIC SERVICE DIRECTOR-PATRON ATTENDANT, LENKA Attending Fernando chacon [employer]AR PUBLIC SERVICE DIRECTOR-PATRON ATTENDANT, LETTY A Primary Care Un available [employer] PUBLIC SERVICE DIRECTOR-PATRON ATTENDANT, LETTY A Attending Un available [employer] PUBLIC SERVICE DIRECTOR-PATRON ATTENDANT, LETTY A Primary Care Un available [employer] PUBLIC SERVICE DIRECTOR-PATRON ATTENDANT, LETTY A Attending Un available [employer] PUBLIC SERVICE DIRECTOR-PATRON ATTENDANT, LETTY A Primary Care Un available [employer]AR PUBLIC SERVICE DIRECTOR-PATRON ATTENDANT, LETTY A Attending Un available [employer] PUBLIC SERVICE DIRECTOR-PATRON ATTENDANT, LETTY A Primary Care Un available Allergies Allergy Classification Reported Allergen(s) Allergy Type Date of Onset Reaction(s) Facility Cephalosporins (antibiotic) (1 source) Cephalexin Drug Allergy 6 Rash [facility] Lincosamides (antibiotic) (1 source) Clindamycin Drug Allergy 6 GI Intolerance [facility] Work Phone: rivaroxaban (1 source) rivaroxaban Drug Allergy 6 Rash [facility] (20 sources) cephalexin; Translations: [cephalexin] Propensity to adverse reactions to drug 6 Rash, Eruption of skin (disorder) [facility] Work Phone: (20 sources) clindamycin; Translations: [Unknown] Propensity to adverse reactions to drug 6 GI Intolerance [facility] Work Phone: (20 sources) rivaroxaban; Translations: [Xarelto TABS] Propensity to adverse reactions to drug 6 Rash [facility] Work Phone: (9 sources) rivaroxaban; Translations: [rivaroxaban] Drug Allergy Eruption of skin (disorder) [facility] (8 sources) Etanercept; Translations: [etanercept] Drug Allergy Rash [facility] (7 sources) methylPREDNISol one; Translations: [methylpredniso lone] Drug Allergy Facial redness, rash [facility] (8 sources) Grass Allergy to substance [facility] (8 sources) Pet Dander Allergy to substance [facility] (8 sources) pollen-tree Allergy to [facility] Medications Current Medications Medication Drug Class(es) Dates Sig (Normalized) Sig (Original) acetaminophen 300 mg / codeine phosphate 30 mg oral tablet (1 source) Opioid Agonist Start: 06-17-2020 End: 06-24-2020 take 1 tablet by mouth every four hours as needed for pain, then take 1 tablet by mouth as needed for pain acetaminophen-co deine (TYLENOL/CODEINE #3) 300-30 MG per tablet Indications: Wrist arthritis Take 1 tablet by mouth every 4 hours as needed for Pain for up to 7 days. Intended supply: 7 days. Take lowest dose possible to manage pain 42 tablet 0 06/17/2020 06/24/2020 Active ALPRAZolam 0.25 mg disintegrating oral tablet (1 source) Benzodiazepine Start: 06-17-2020 ALPRAZolam (NIRAVAM) dissolvable tablet 0.25 mg aspirin 81 mg delayed release oral tablet (20 sources) Nonsteroidal Anti-inflammatory Drug Start: 06-29-2021 aspirin 81 mg oral delayed release tablet Dose : 81 mg = 1 tab(s), Oral, Daily, 0 Refill(s) Start Date: 06/29/21 Status: Ordered Completed/Discontinued Medications Medication Drug Class(es) Dates Sig (Normalized) Sig (Original) acetaminophen 500 mg oral tablet (9 sources) Start: 06-17-2020 End: 06-17-2020 acetaminophen (TYLENOL) tablet 1,000 mg Problems Active Problems Problem Classification Problem Date Documented Date Episodic/Chronic Anxiety disorders (9 sources) Mixed anxiety and depressive disorder 06-28-2021 Chronic Aortic; peripheral; and visceral artery aneurysms (4 sources) Aneurysm of iliac artery 06-08-2022 Chronic Attention-deficit, conduct, and disruptive behavior disorders (20 sources) Attention deficit hyperactivity disorder, predominantly inattentive type; Translations: [Attention-deficit hyperactivity disorder, predominantly inattentive type] Onset: 05-01-2016 Resolved: 09-26-2016 06-21-2017 Chronic Calculus of urinary tract (12 sources) Kidney stone; Translations: [Calculus of kidney] 12-29-2021 Episodic Conduction disorders (9 sources) Right bundle branch block 07-06-2021 Chronic Diabetes mellitus with complications (20 sources) Microalbuminuric diabetic nephropathy; Translations: [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 2 diabetes mellitus] Onset: 10-04-2017 10-04-2017 Chronic Diabetes mellitus without complication (20 sources) Diabetes mellitus; Translations: [Type 2 diabetes mellitus without complication] Onset: 12-21-2016 12-21-2016 Chronic Disorders of lipid metabolism (20 sources) Hyperlipidemia; Translations: [Mixed hyperlipidemia] Onset: 05-01-2016 05-01-2016 Chronic Essential hypertension (11 sources) Hypertensive disorder; Translations: [Essential (primary) hypertension] Onset: 12-22-2022 06-28-2021 Chronic Genitourinary symptoms and ill-defined conditions (4 sources) Nocturia; Translations: [Nocturia] Episodic Hyperplasia of prostate (4 sources) Benign prostatic hypertrophy without outflow obstruction; Translations: [Hypertrophy (benign) of prostate without urinary obstruction and other lower urinary tract symptom (LUTS)] Chronic Osteoarthritis (20 sources) Osteoarthritis of knee; Translations: [Arthritis] Onset: 08-24-2016 06-21-2017 Chronic Other and ill-defined heart disease (4 sources) Left ventricular hypertrophy; Translations: [Cardiomegaly] Onset: 07-08-2021 Chronic Other ear and sense organ disorders (20 sources) Hearing loss; Translations: [Unspecified hearing loss, unspecified ear] Onset: 05-01-2016 05-01-2016 Chronic Other hereditary and degenerative nervous system conditions (8 sources) Restless legs 09-28-2021 Chronic Other inflammatory condition of skin (20 sources) Arthropathic psoriasis, unspecified; Translations: [Psoriatic arthritis] Onset: 08-24-2016 03-30-2018 Chronic Other inflammatory condition of skin (9 sources) Psoriasis 07-06-2021 Chronic Other nervous system disorders (1 source) Cubital tunnel syndrome; Translations: [Cubital tunnel syndrome on left] Chronic Other nervous system disorders (1 source) Carpal tunnel syndrome of left wrist; Translations: [Carpal tunnel syndrome of left wrist] Other non-traumatic joint disorders (7 sources) Arthritis; Translations: [Arthritis] Onset: 08-24-2016 08-24-2016 Chronic Other non-traumatic joint disorders (2 sources) Scapholunate advanced collapse; Translations: [Slac (scapholunate advanced collapse) of wrist, left] Chronic Other non-traumatic joint disorders (1 source) Arthritis of wrist; Translations: [Wrist arthritis] Chronic Other nutritional; endocrine; and metabolic disorders (20 sources) Body mass index 30+ - obesity; Translations: [Body mass index (BMI) 33.0-33.9, adult] Onset: 08-24-2016 11-13-2017 Chronic Other nutritional; endocrine; and metabolic disorders (3 sources) Obesity; Translations: [Class 1 obesity with body mass index (BMI) of 32.0 to 32.9 in adult] Onset: 08-24-2016 06-13-2018 Chronic Other screening for suspected conditions (not mental disorders or infectious disease) (11 sources) Imaging of thorax abnormal; Translations: [Abnormal findings on diagnostic imaging of other specified body structures] Onset: 08-17-2018 08-17-2018 Chronic Other skin disorders (8 sources) H/O: psoriasis 02-26-2017 Episodic Residual codes; unclassified (5 sources) Obstructive sleep apnea syndrome; Translations: [Obstructive sleep apnea (adult) (pediatric)] Chronic Residual codes; unclassified (1 source) History of decompression of median nerve; Translations: [S/P carpal tunnel release] Episodic Skin and subcutaneous tissue infections (18 sources) Cellulitis of lower leg; Translations: [Cellulitis of right lower limb] Onset: 06-13-2018 Resolved: 11-17-2018 06-13-2018 Episodic Transient cerebral ischemia (5 sources) Transient cerebral ischemia; 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] Chronic Unclassified (20 sources) Sleep apnea; Translations: [Sleep apnea, unspecified] Onset: 05-01-2016 05-01-2016 Chronic Unclassified (2 sources) Patient encounter status 12-22-2022 Past or Other Problems Problem Classification Problem Date Documented Da te Episodic/Chronic Conditions associated with dizziness or vertigo (17 sources) Dizziness; Translations: [Dizziness and giddiness] Onset: 07-22-2018 Resolved: 08-24-2018 07-22-2018 Episodic Heart valve disorders (20 sources) Heart murmur; Translations: [Cardiac murmur, unspecified] Onset: 07-05-2018 07-05-2018 Episodic Malaise and fatigue (20 sources) Fatigue; Translations: [Other fatigue] Onset: 05-01-2016 05-01-2016 Episodic Medical examination/evaluation (2 sources) Encounter for general adult medical examination without abnormal findings; Translations: [Encounter for general adult medical examination without abnormal findings] Onset: 03-24-2017 Episodic Other screening for suspected conditions (not mental disorders or infectious disease) (12 sources) Imaging of thorax abnormal; Translations: [Abnormal chest x-ray] Onset: 08-17-2018 08-17-2018 Episodic Residual codes; unclassified (15 sources) Transient altered mental status; Translations: [Disorientation, unspecified] Onset: 02-06-2020 02-06-2020 Episodic Spondylosis; intervertebral disc disorders; other back problems (20 sources) Low back pain; Translations: [Low back pain] Onset: 10-04-2017 10-04-2017 Episodic Varicose veins of lower extremity (20 sources) Varicose veins of lower extremity; Translations: [Asymptomatic varicose veins of unspecified lower extremity] Onset: 03-24-2017 03-24-2017 Episodic Results Test Name Value Interpretation Reference Range Facil ity Vital Signs Date Time Vital Sign Value Performing Clinician Facility 02-22-2022 11:38-0400 Body mass index (BMI) [Ratio] 34.04 kg/m2 Marta Riddle Work Phone: [facility] Work Phone: 02-22-2022 11:38-0400 Body surface area Derived from formula 2.5 m2 Marta Riddle Work Phone: [facility]kl[facility] Work Phone: 02-22-2022 11:38-0400 Body weight 123.55 kg Marta Riddle Work Phone: [facility] Work Phone: 02-22-2022 11:38-0400 Diastolic blood pressure 92 mm[Hg] Marta Riddle Work Phone: [facility] Work Phone: 02-22-2022 11:38-0400 Heart rate 98 /min Marta Riddle Work Phone: [facility]Vzyzayu[facility]Gmsgzrkm [facility] Work Phone: 02-22-2022 11:38-0400 Systolic blood pressure 130 mm[Hg] Marta Riddle Work Phone: [facility]Tycemq[facility]Zsjbrrqb [facility] Work Phone: 01-27-2022 15:00-0400 Body height 190.5 cm Marta Riddle Work Phone: [facility] DO Work Phone: 01-27-2022 15:00-0400 Body mass index (BMI) [Ratio] 34.44 kg/m2 Marta Riddle Work Phone: [facility] 232 DO Work Phone: 01-27-2022 15:00-0400 Body surface area Derived from formula 2.51 m2 Marta Maggie Osmin Work Phone: [facility] DO Work Phone: 01-27-2022 15:00-0400 Body weight 124.97 kg Marta Riddle Work Phone: [facility] 232 DO Work Phone: 01-27-2022 15:00-0400 Diastolic blood pressure 78 mm[Hg] Marta Riddle Work Phone: [facility] DO Work Phone: 01-27-2022 15:00-0400 Heart rate 110 /min Marta Riddle Work Phone: [facility] 232 DO Work Phone: 01-27-2022 15:00-0400 Systolic blood pressure 106 mm[Hg] Marta Riddle Work Phone: [facility] DO Work Phone: 07-01-2021 13:51-0500 Body height 190.5 cm Mark Mason MD Work Phone: [facility] 07-01-2021 13:51-0500 Body mass index (BMI) [Ratio] 34.25 kg/m2 Mark Mason MD Work Phone: [facility] 07-01-2021 13:51-0500 Body weight 124.29 kg Mark Mason MD Work Phone: [facility] 07-01-2021 13:51-0500 Diastolic blood pressure 72 mm[Hg] Mark Mason MD Work Phone: [facility] 07-01-2021 13:51-0500 Heart rate 84 /min Mark Mason MD Work Phone: [facility] 07-01-2021 13:51-0500 SaO2% (BldA) [Mass fraction] 98 % Mark Mason MD Work Phone: [facility] 07-01-2021 13:51-0500 Systolic blood pressure 122 mm[Hg] Mark Mason MD Work Phone: [facility] 09-10-2020 14:13-0500 BMI (Body Mass Index) 35.5 kg/m2 [facility]-10-2020 14:13-0500 Body weight 128.82 kg Mark Mason [facility] 09-10-2020 14:13-0500 BP Diastolic 78 mm[Hg] [facility] 14:13-0500 BP Systolic 128 mm[Hg] [facility] 09-10-2020 14:13-0500 Height 190.[address] [facility] 09-10-2020 14:13-0500 Pulse (Heart Rate) 95 /min [facility] 09-10-2020 14:13-0500 Pulse Oximetry 96 % Mark [facility] 06-17-2020 10:46-0500 BP Diastolic 78 mm[Hg] [facility] [employer] [facility] [place] 06-17-2020 10:46-0500 BP Systolic 126 mm[Hg] [facility] [place] 06-17-2020 10:46-0500 Pulse (Heart Rate) 80 /min [facility] [place] 06-17-2020 10:46-0500 Respiratory Rate 18 /min Mitch [facility] [place] 06-17-2020 10:32-0500 Pulse Oximetry 95 % [facility] [place] 06-17-2020 10:22-0500 Body Temperature 97.3 [degF] Mitch Tyleraus [employer] [place] [facility] [place] 06-17-2020 06:37-0500 BMI (Body Mass Index) 34.87 kg/m2 Mitch [employer] [facility] 06-17-2020 06:37-0500 Body weight 126.55 kg Mitch Maciej [employer] [facility] [place] 06-17-2020 06:37-0500 Height 190.5 cm [facility] [place] 06-10-2020 13:21-0500 Body Temperature 95.7 [degF] Mitch [employer] [place] 06-10-2020 13:21-0500 BP Diastolic 72 mm[Hg] [facility] [place] 06-10-2020 13:21-0500 BP Systolic 123 mm[Hg] [facility] [place] 06-10-2020 13:21-0500 Pulse (Heart Rate) 90 /min Mitch Borjas [facility] 06-10-2020 13:21-0500 Pulse Oximetry 97 % Mitch Wing [facility] [place] 06-10-2020 13:20-0500 BMI (Body Mass Index) 34.75 kg/m2 [facility] [place] 06-10-2020 13:20-0500 Body weight 126.1 kg [facility] [place] 06-10-2020 13:20-0500 Height 190.5 cm Mitch Wing [facility] [place] 06-10-2020 13:20-0500 Respiratory Rate 16 /min Mitch [facility] 03-11-2020 11:32-0400 BMI (Body Mass Index) 34.2 kg/m2 Isai Page [facility] 03-11-2020 11:32-0400 Body weight 127.46 kg Isai [facility] 03-11-2020 11:32-0400 BP Diastolic 84 mm[Hg] [facility] 03-11-2020 11:32-0400 BP Systolic 128 mm[Hg] Isaivj Page [facility] 03-11-2020 11:32-0400 Height 193 [facility] 03-11-2020 11:32-0400 Pulse (Heart Rate) 105 /min [facility] 02-06-2020 10:44-0400 BMI (Body Mass Index) 34.22 kg/m2 [facility] 02-06-2020 10:44-0400 Body weight 127.[address] [facility] 02-06-2020 10:44-0400 BP Diastolic 82 mm[Hg] 02-06-2020 10:44-0400 BP Systolic 130 mm[Hg] [facility] 02-06-2020 10:44-0400 Height 193 cm 02-06-2020 10:44-0400 Pulse (Heart Rate) 81 /min 02-06-2020 10:44-0400 Pulse Oximetry 97 % 12-06-2018 12:43-0400 BMI (Body Mass Index) 33.74 kg/m2 12-06-2018 12:43-0400 BP Diastolic 77 mm[Hg] 12-06-2018 12:43-0400 BP Systolic 128 mm[Hg] 12-06-2018 12:43-0400 Height 190.5 cm 12-06-2018 12:43-0400 Pulse (Heart Rate) 81 /min 12-06-2018 12:43-0400 Pulse Oximetry 97 % 12-06-2018 12:43-0400 Weight 122.43 kg 11-17-2018 11:03-0400 BMI (Body Mass Index) 33.62 kg/m2 [facility] 11-17-2018 11:03-0400 Body Temperature 98.4 [degF] [facility] 11-17-2018 11:03-0400 BP Diastolic 78 mm[Hg] [facility] 11-17-2018 11:03-0400 BP Systolic 121 mm[Hg] [facility] 11-17-2018 11:03-0400 Height 190.5 cm [facility] 11-17-2018 11:03-0400 Pulse (Heart Rate) 84 /min [facility] 11-17-2018 11:03-0400 Pulse Oximetry 98 % [facility] 11-17-2018 11:03-0400 Respiratory Rate 18 /min [facility] 11-17-2018 11:03-0400 Weight 122.02 kg [facility] 09-14-2018 10:20-0500 BMI (Body Mass Index) 32.87 kg/m2 Matt Hernandez [facility] 09-14-2018 10:20-0500 BP Diastolic 68 mm[Hg] Matt Hernandez [facility] 09-14-2018 10:20-0500 BP Systolic 118 mm[Hg] [facility] 09-14-2018 10:20-0500 Height 190.5 cm [facility] 09-14-2018 10:20-0500 Pulse (Heart Rate) 80 /min [facility] 09-14-2018 10:20-0500 Pulse Oximetry 98 % [facility] 09-14-2018 10:20-0500 Respiratory Rate 16 /min [facility] 09-14-2018 10:20-0500 Weight 119.3 kg [facility] 08-17-2018 09:58-0500 BMI (Body Mass Index) 32.5 kg/m2 [facility] 08-17-2018 09:58-0500 Body Temperature 98.71 [degF] [facility] 08-17-2018 09:58-0500 BP Diastolic 71 mm[Hg] [facility] 08-17-2018 09:58-0500 BP Systolic 116 mm[Hg] [facility] 08-17-2018 09:58-0500 Height 190.5 cm [facility] 08-17-2018 09:58-0500 Pulse (Heart Rate) 88 /min [facility] 08-17-2018 09:58-0500 Pulse Oximetry 97 % [facility] 08-17-2018 09:58-0500 Respiratory Rate 16 /min [facility] 08-17-2018 09:58-0500 Weight 117.94 kg [facility] 07-05-2018 11:45-0500 BMI (Body Mass Index) 33.05 kg/m2 07-05-2018 11:45-0500 BP Diastolic 71 mm[Hg] 07-05-2018 11:45-0500 BP Systolic 130 mm[Hg] 07-05-2018 11:45-0500 Height 190.5 cm 07-05-2018 11:45-0500 Pulse (Heart Rate) 95 /min 07-05-2018 11:45-0500 Pulse Oximetry 97 % 07-05-2018 11:45-0500 Weight 119.93 kg 12-28-2017 11:36-0400 BMI (Body Mass Index) 33.49 kg/m2 [facility] 12-28-2017 11:36-0400 Body Temperature 98.2 [degF] [facility] 12-28-2017 11:36-0400 BP Diastolic 63 mm[Hg] [facility] 12-28-2017 11:36-0400 BP Systolic 118 mm[Hg] [facility] 12-28-2017 11:36-0400 Height 190.5 cm [facility] 12-28-2017 11:36-0400 Pulse (Heart Rate) 77 /min [facility] 12-28-2017 11:36-0400 Pulse Oximetry 98 % [facility] 12-28-2017 11:36-0400 Respiratory Rate 16 /min [facility] 12-28-2017 11:36-0400 Weight 121.52 kg [facility] 10-04-2017 12:05-0500 BMI (Body Mass Index) 34.84 kg/m2 [facility] 10-04-2017 12:05-0500 Body Temperature 98.29 [degF] [facility] 10-04-2017 12:05-0500 BP Diastolic 87 mm[Hg] [facility] 10-04-2017 12:05-0500 BP Systolic 125 mm[Hg] [facility] 10-04-2017 12:05-0500 Height 190.5 cm [facility] 10-04-2017 12:05-0500 Pulse (Heart Rate) 83 /min [facility] 10-04-2017 12:05-0500 Pulse Oximetry 97 % [facility] 10-04-2017 12:05-0500 Respiratory Rate 16 /min [facility] 10-04-2017 12:05-0500 Weight 126.42 kg [facility] 09-15-2017 11:28-0500 BMI (Body Mass Index) 34.99 kg/m2 [facility] 09-15-2017 11:28-0500 Body Temperature 98.29 [degF] [facility] 09-15-2017 11:28-0500 BP Diastolic 64 mm[Hg] [facility] 09-15-2017 11:28-0500 BP Systolic 118 mm[Hg] Matt Hernandez [facility] 09-15-2017 11:28-0500 Height 190.5 cm Matt Hernandez [facility] 09-15-2017 11:28-0500 Pulse (Heart Rate) 75 /min Matt Hernandez [facility] 09-15-2017 11:28-0500 Pulse Oximetry 97 % Matt Hernandez [facility] 09-15-2017 11:28-0500 Respiratory Rate 16 /min Matt Hernandez [facility] 09-15-2017 11:28-0500 Weight 126.96 kg Matt Hernandez [facility] 06-21-2017 11:47-0500 BMI (Body Mass Index) 34.62 kg/m2 Matt Hernandez [facility] Work Phone: 06-21-2017 11:47-0500 Body Temperature 98.4 [degF] Matt Hernandez [facility] Work Phone: 06-21-2017 11:47-0500 BP Diastolic 79 mm[Hg] Matt Hernandez [facility] Work Phone: 06-21-2017 11:47-0500 BP Systolic 122 mm[Hg] Matt Hernandez [facility] Work Phone: 06-21-2017 11:47-0500 Height 190.5 cm Matt Hernandez [facility] Work Phone: 06-21-2017 11:47-0500 Pulse (Heart Rate) 73 /min Matt Hernandez [facility] Work Phone: 06-21-2017 11:47-0500 Pulse Oximetry 97 % Matt Hernandez [facility] Work Phone: 06-21-2017 11:47-0500 Respiratory Rate 16 /min Matt Hernandez [facility] Work Phone: 06-21-2017 11:47-0500 Weight 125.65 kg Matt Hernandez [facility] Work Phone: 03-24-2017 09:59-0400 BMI (Body Mass Index) 34.25 kg/m2 Matt Hernandez [facility] Work Phone: 03-24-2017 09:59-0400 Body Temperature 98.49 [degF] [facility] 03-24-2017 09:59-0400 BP Diastolic 79 mm[Hg] Matt [facility] Work Phone: 03-24-2017 09:59-0400 BP Systolic 124 mm[Hg] Matt [facility] Work Phone: 03-24-2017 09:59-0400 Height 190.5 cm Matt [facility] Work Phone: 03-24-2017 09:59-0400 Pulse (Heart Rate) 76 /min Matt [facility] Work Phone: 03-24-2017 09:59-0400 Pulse Oximetry 99 % Matt [facility] Work Phone: 03-24-2017 09:59-0400 Respiratory Rate 16 /min Matt [facility] Work Phone: 03-24-2017 09:59-0400 Weight 124.29 kg Matt [facility] Work Phone: Encounters Encounter Date Encounter Type Care Provider Facility Start: 05-27-2023 End: 06-01-2023 ambulatory LENKA GRANADOS PUBLIC SERVICE DIRECTOR-PATRON ATTENDANT Facility:B Start: 05-27-2023 End: 05-31-2023 Outreach Lab LENKA GRANADOS PUBLIC SERVICE DIRECTOR-PATRON ATTENDANT [facility] Start: 05-18-2023 ambulatory LETTY LANG PUBLIC SERVICE DIRECTOR-PATRON ATTENDANT Facility:B Start: 12-22-2022 End: 12-27-2022 ambulatory LETTY ZAVALETA PUBLIC SERVICE DIRECTOR-PATRON ATTENDANT Facility:B Start: 12-22-2022 End: 12-26-2022 Outreach Lab LETTY ZAVALETA PUBLIC SERVICE DIRECTOR-PATRON ATTENDANT [facility] Start: 12-11-2022 End: 12-12-2022 ambulatory LETTY ZAVALETA PUBLIC SERVICE DIRECTOR-PATRON ATTENDANT Facility:B Start: 12-11-2022 End: 12-11-2022 Patient encounter procedure LETTY Laboy WAQAR PUBLIC SERVICE DIRECTOR-PATRON ATTENDANT [facility] Start: 10-20-2022 ambulatory MARK ESTRADA [facility] Start: 09-15-2022 End: 09-16-2022 ambulatory CATINA VANCE MD Facility:B Start: 09-15-2022 End: 09-15-2022 Patient encounter procedure CATINA VANCE MD [facility] Start: 09-09-2022 End: 09-10-2022 ambulatory CATINA VANCE MD Facility:B Start: 05-04-2022 End: 05-04-2022 Patient encounter procedure MARTA RIDDLE PUBLIC SERVICE DIRECTOR-PATRON ATTENDANT [facility] Start: 04-15-2022 End: 04-15-2022 Patient encounter procedure MARTA RIDDLE PUBLIC SERVICE DIRECTOR-PATRON ATTENDANT [facility] Start: 04-13-2022 End: 04-13-2022 Patient encounter procedure MARTA RIDDLE PUBLIC SERVICE DIRECTOR-PATRON ATTENDANT [facility] Start: 03-25-2022 End: 03-25-2022 Patient encounter procedure MARTA RIDDLE PUBLIC SERVICE DIRECTOR-PATRON ATTENDANT [facility] Start: 02-22-2022 Office outpatient vi sit 15 minutes Marta Riddle Work Phone: [id number]-Eyibarsqb Work Phone: Start: 02-15-2022 Chart Update Marta chandler Work Phone: AZ-Kztxhru-Ieqeplo Work Phone: Start: 07-12-2022 Chart Update Marta chandler Work Phone: GZ-Aorbgrv-Intugjp Work Phone: Start: 02-04-2022 Chart Update Marta chandler Work Phone: MD-Xctnhhy-Oqfhnwqu HC 232 DO Work Phone: Start: 07-07-2021 End: 07-07-2021 Patient encounter procedure MARTA RIDDLE PUBLIC SERVICE DIRECTOR-PATRON ATTENDANT [facility] Start: 07-01-2021 End: 07-01-2021 Office outpatient visit 15 minutes Mark Mason MD Work Phone: [facility] Procedures Date Procedure Procedure Detail Performing Clinician Start: 08-28-2020 Radex wrist complete minimum 3 views Mitch Lat49Maciej Work Phone: Start: 07-17-2020 Radex wrist complete minimum 3 views Mitch J Maciej Work Phone: Start: 06-17-2020 OPERATIVE REPORT 3m Sca nning Start: 06-17-2020 Gluc bld gluc mntr d ev cleared fda spec home use Mitch J Maciej Work Phone: Start: 06-17-2020 Gluc bld gluc mntr d ev cleared fda spec home use Mitch J Maciej Work Phone: Start: 06-10-2020 Basic metabolic pane l calcium total Amadeo Daren Yeropoli Work Phone: Start: 06-10-2020 Blood count complete automated Amadeo Daren Yeropoli Work Phone: Start: 06-10-2020 Ecg routine ecg w/le ast 12 lds w/i&r Amadeo Daren Yeropoli Work Phone: Start: 04-23-2020 Echo tthrc r-t 2d w/wom-mode compl spec&colr d Mark Mason Work Phone: Start: 04-08-2020 Mra neck w/contrast material Isai Page Work Phone: Start: 04-08-2020 MR angiography of he ad and brain without contrast Isai Page Work Phone: Start: 04-08-2020 Creatinine [Mass/vol ume] in Blood Isai Page Work Phone: Start: 04-03-2019 History of arthropla sty of right knee MARTA RIDDLE PUBLIC SERVICE DIRECTOR-PATRON ATTENDANT Plan of Treatment Date Care Activity Detail Author Start: 06-09-2025 Tetanus vaccination Tetanus: Every 10yrs [facility] Start: 06-13-2023 Pneumococcal Vaccine: Age 65+ (1 of 1 - PPSV23) Pneumococcal Vaccine: Age 65+ (1 of 1 - PPSV23) [facility] Start: 04-01-2022 Influenza vaccination Sequential Influenza Vaccine (#1) [facility] Start: 02-26-2022 FUV, Provider: Matt Julien II, Status: Pen, Time: 7:30 AM FUV, Provider: Matt Julien II, Status: Pen, Time: 7:30 AM VK-Ademyjd-Fypmetam HC 232 DO Work Phone: Start: 02-22-2022 FUV, Provider: Matt Julien II, Status: Pen, Time: 11:30 AM FUV, Provider: Matt Julien II, Status: Pen, Time: 11:30 AM UV-Ctrcbfb-Lynfzqs Work Phone: Start: 06-10-2021 Creatinine measurement Creatinine monitoring [facility] [place] Start: 06-10-2021 Potassium monitoring Potassium monitoring [facility] [place], [place] Start: 04-01-2021 Influenza vaccination Sequential Influenza Vaccine (#1) [facility] Start: 10-23-2020 End: 10-23-2020 Office Visit 10/23/2020 Office Visit Orthopedic Surgery Mitch Wing MD [address] [place] [address] [place] [address] [phone] [facility] [place] Start: 08-28-2020 End: 08-28-2020 Nurse Only [facility] [place] Start: 06-30-2020 End: 06-30-2020 Nurse Only [facility] Orthoped[facility] [place] Start: 06-17-2020 End: 06-17-2020 Appointment 06/17/2020 Appointment General Surgery Mitch Wing MD [address] [facility] [address] [place] [address] [phone] [facility] Start: 05-22-2020 Annual Wellness Visit (AWV) Annual Wellness Visit (AWV) [place], [place] Start: 04-08-2020 End: 04-08-2020 Appointment 04/08/2020 Appointment Radiology Isai Page MD [address] [facility] [address] [place] [address] [phone] [facility] MRI Start: 04-01-2020 Influenza vaccination Flu vaccine (#1) [place], [place] Start: 04-01-2020 Influenza vaccination given Sequential Influenza Vaccine (#1) [facility] Start: 09-14-2019 Fall risk assessment [facility] Start: 08-01-2019 Hemoglobin A1c measurement A1C [facility] Start: 06-13-2019 Pneumococcal vaccination PNEUMOCOCCAL VACCINE AGE 65+ (2 of 2 - PPSV23) [facility] Start: 06-13-2019 Pneumococcal Vaccine: Age 65+ (2 - PPSV23 if available, else PCV20) Pneumococcal Vaccine: Age 65+ (2 - PPSV23 if available, else PCV20) [facility] Start: 02-16-2019 End: 02-16-2019 Office Visit 02/16/2019 Office Visit Primary Care Sarah Loera, PATRON ATTENDANT [address] [place] [address] [phone] [facility] Start: 02-14-2019 Hemoglobin A1c measurement A1C [facility] Start: 02-14-2019 Hemoglobin A1c/Hemoglobin.total mass fraction (Bld) [facility] Start: 01-02-2019 Diabetic foot examination FOOT EXAM [facility] Start: 12-06-2018 End: 12-06-2018 Ambulatory [facility] Office Start: 12-06-2018 End: 12-06-2018 Office Visit 12/06/2018 Office Visit Primary Care Matt Hernandez MD [address] [place] [address] [phone] [facility] Start: 11-12-2018 DTaP/Tdap/Td vaccine (2 - Td) DTaP/Tdap/Td vaccine (2 - Td) [place], [place] Start: 11-12-2018 TETANUS EVERY 10 YR TETANUS EVERY 10 YR [facility] Work Phone: Start: 11-12-2018 Tetanus vaccination [facility] Work Phone: Start: 10-26-2018 Glaucoma screening Ophthalmology Exam [facility] Start: 10-26-2018 Ophthalmic examination and evaluation OPHTHALMOLOGY EXAM [facility] Start: 10-04-2018 Microalbumin measurement, urine, quantitative Urine Microalbumin [facility] Start: 10-04-2018 Urine, microalbumin URINE MICROALBUMIN [facility] Start: 09-14-2018 End: 09-14-2018 Ambulatory [facility] Start: 08-08-2018 Pneumococcal Vaccine: Age 65+ (1 of 2 - PPSV23) Pneumococcal Vaccine: Age 65+ (1 of 2 - PPSV23) [facility] Start: 05-01-2018 Screening colonoscopy COLONOSCOPY [facility] Start: 04-06-2018 HbA1c HEMOGLOBIN A1C [facility] Start: 04-06-2018 Urine screening for protein Urine Microalbumin [facility] Start: 03-30-2018 End: 03-30-2018 Ambulatory 03/30/2018 Office Visit Primary Care Matt Hernandez MD [address] [place] [address] [phone] [facility] Start: 2017 Fall risk assessment Steadi Fall Risk Assessment [facility] Start: 2017 Pneumococcal 65+ years Vaccine (2 of 2 - PPSV23) Pneumococcal 65+ years Vaccine (2 of 2 - PPSV23) [place], [place] Start: 2017 Pneumococcal vaccination PNEUMOCOCCAL VACCINE AGE 65+ (1 of 2 - PCV13) [facility] Start: 12-13-2017 End: 12-13-2017 Ambulatory 12/13/2017 Office Visit Primary Care Matt Hernandez MD [address] [place] [address] [phone] [facility] Start: 11-22-2017 End: 11-22-2017 Ambulatory 11/22/2017 Office Visit Primary Care Matt Hernandez MD [address] [place] [address] [phone] [facility] Start: 09-24-2017 HbA1c HEMOGLOBIN A1C [facility] Work Phone: Start: 09-15-2017 Ambulatory 09/15/2017 Office Visit Primary Care Matt Hernandez MD [address] [place] [address] [phone] [facility] Start: 08-24-2017 Depression screening using PHQ-9 (Patient Health Questionnaire 9) score [facility] Start: 06-21-2017 Ambulatory 06/21/2017 Office Visit Primary Care Matt Hernandez MD [address] [place] [address] [phone] [facility] Start: 04-01-2017 Influenza vaccination SEQUENTIAL INFLUENZA VACCINE (#1) [facility] Work Phone: Start: 04-01-2017 SEQUENTIAL INFLUENZA VACCINE (#1) SEQUENTIAL INFLUENZA VACCINE (#1) [facility] Work Phone: Start: 2012 Zoster vacc, sc ZOSTER VACCINE [facility] Work Phone: Start: 2002 Administration of herpes zoster vaccine ZOSTER VACCINES (1 of 2) [facility] Start: 2002 Screening for malignant neoplasm of colon [facility] Start: 2002 Shingles Vaccine (1 of 2) Shingles Vaccine (1 of 2) [place], [place] Start: 2002 ZOSTER VACCINES (1 of 2) ZOSTER VACCINES (1 of 2) [facility] Start: 1992 Diabetes screen Diabetes screen [place], [place] Start: 1968 COVID-19 Vaccine (1 of 2) COVID-19 Vaccine (1 of 2) [facility] Start: 1964 Adolescent depression screening assessment Depression Screening (PHQ9) [facility] Start: 1964 COVID-19 Vaccine (1) COVID-19 Vaccine (1) [facility] Start: 1962 Lipid panel Lipid screen [place], [place] Start: 1962 Diabetic foot examination (regime/therapy) FOOT EXAM [facility] Work Phone: Start: 1962 FOOT EXAM FOOT EXAM [facility] Work Phone: Start: 1962 Ophthalmic examination and evaluation OPHTHALMOLOGY EXAM [facility] Work Phone: Start: 1962 OPHTHALMOLOGY EXAM OPHTHALMOLOGY EXAM [facility] Work Phone: Start: 1962 URINE MICROALBUMIN URINE MICROALBUMIN [facility] Work Phone: Start: 1962 Urine, microalbumin URINE MICROALBUMIN [facility] Work Phone: Start: 12-18-1955 History and physical examination, annual for health maintenance Wellness Visit [facility] Start: 06-19-1953 COVID-19 Vaccine (#1) COVID-19 Vaccine (#1) [facility] Start: 1952 Abdominal aortic aneurysm screening AAA screen [place], [place] Start: 1952 Creatinine measurement Creatinine monitoring [place], [place] Start: 1952 Depression screening using PHQ-9 (Patient Health Questionnaire 9) score Depression Screening (PHQ9) [facility] Start: 1952 Fall risk assessment Falls Risk Assessment [facility] Start: 1952 Hepatitis C screening Hepatitis C screen [place], [place] Start: 1952 Potassium monitoring Potassium monitoring [place], [place] Start: 1952 Prostate specific antigen measurement PSA Level [facility] Start: 1952 Protein mass conc COLONOSCOPY [facility] Start: 1952 Screening for malignant neoplasm of colon [facility] Start: 1952 Colonoscopy COLONOSCOPY [facility] Work Phone: Start: 1952 HEMOGLOBIN A1C HEMOGLOBIN A1C [facility] Work Phone: Start: 05-19-1953 HEPATITIS C SCREENING HEPATITIS C SCREENING [facility] Work Phone: Start: 1952 Screening colonoscopy COLONOSCOPY [facility] Work Phone: End: 06-17-2020 Blood glucose - POCT Blood glucose - POCT Point of Care Testing STAT One Time for 1 Occurrences starting 06/17/2020 until 06/17/2020 [place], [place] Immunizations Immunization Date Immunization Notes Care Provider Fa [facility] 07-15-2022 influenza virus vaccine, unspecified formulation CATINA VANCE MD [facility] 04-29-2021 influenza virus vaccine, unspecified formulation MARTA RIDDLE PUBLIC SERVICE DIRECTOR-PATRON ATTENDANT [facility] 10-23-2020 SARS-CoV-2 (COVID-19 ) mRNA-1273 vaccine MARTA RIDDLE PUBLIC SERVICE DIRECTOR-PATRON ATTENDANT [facility] Payers Date Payer Category Payer Private Health Insurance HUMANA HUMANA OTHER AFTER MEDICARE xxxxxxxxx 2019-Present xxxxxxxxx [id number] 2019 Private Health Insurance HUMANA HUMANA OTHER AFTER MEDICARE [id number] 2019-Present [id number] 2019 Private Health Insurance [id number] 2019 Private Health Insurance HUMANA HUMANA OTHER AFTER MEDICARE [id number] 2019-Present [id number] [place] [id number] [id number] 2018 Medicare MEDICARE MEDICAR E PART A & B xxxxxxxxxxx 2018-Present [place] xxxxxxxxxxx [id number] 2018 Medicare MEDICARE MEDICAR E PART A & B [id number] 2018-Present [place] [id number] 2018 Medicare [id number] 2018 Medicare MEDICARE MEDICAR E PART A & B [id number] 2018-Present [phone] S [id number] PART A CLAIMS [address] [address] [place] [address] [id number] 2015 Unknown xxxxxxxxxxxxxxx [id number] 2015 Unknown [id number] 2015 Unknown 1952 Unknown [id number] 7 1952 Unknown [id number] 7 1952 Unknown [id number] 7 1952 Unknown [id number] 7 1952 Unknown [id number] 7 1952 Unknown [id number] 7 1952 Unknown [id number] 3 1952 Unknown [id number] 3 1952 Unknown [id number] 3 1952 Unknown [id number] 3 Social History Date Type Detail Facility Start: 11-13-2017 End: 01-29-2019 Tobacco smoking status NHIS Never smoker [facility] Work Phone: Start: 1950 Sex Assigned At Not on file [facility] Work Phone: Start: 05-01-2016 Alcohol Comment socially/wine and liquor [facility] Start: 07-05-2018 End: 02-06-2020 Alcohol intake Current drinker of alcohol (finding) [facility] Start: 06-01-2021 End: 07-01-2021 Exposure to SARS-CoV-2 (event) Not sure [facility] Start: 03-24-2017 End: 03-11-2020 Tobacco use and exposure Never used [facility] Start: 06-17-2020 End: 07-17-2020 Tobacco smoking status MTIS Former smoker [facility] [place], [place] Start: 06-17-2020 Alcohol Comment 2-3 weeks [place], [place] Sex Assigned At [facility] Never a smoker [facility] a [facility] Work Phone: Sex Assigned At Male [facility] Medical Equipment Procedure Code Equipment Code Equipment Origin al Text Equipment Identifier Dates See Instructions , AccuChek Lancets. #1 box of 100. Use to check blood sugar once daily, # 1 EA, 3 Refill(s), Pharmacy: [id number], DMII (diabetes mellitus, type 2), 190, cm, 03/18/23 11:40:00 EDT, Height, 124.8, kg, 03/18/23 11:40:00 EDT, Dosing Weight Start: 05-20-2023 See Instructions , AccuChek Test Strips #1 box of 100. Use to check blood sugar once daily, # 1 EA, 3 Refill(s), Pharmacy: [id number], DMII (diabetes mellitus, type 2), 190, cm, 03/18/23 11:40:00 EDT, Height, 124.8, kg, 03/18/23 11:40:00 EDT, Dosing Weight Start: 05-20-2023 Goals Date Patient Goal Desired Activity /State Clinical Notes 12-30-2020 to 05-30-2023 LaboratoryAssessment & Plan Note - Mark Mason MD - 07/08/2021 2:21 PM ESTAssessment & Plan Note - Mark Mason MD - 07/08/2021 2:16 PM ESTLaboratoryLaboratoryLaboratory Note Date & Type Note Facility 05-30-2023 Note . MICRO - Microbiology PROCEDURE: Culture Wound Aerobic with Gram Stain [*1] SOURCE: Wound (surface) BODY SITE: Leg COLLECTED DATE/TIME: 05/27/2023 14:13 EDT RECEIVED DATE/TIME: 05/27/2023 19:19 EDT START DATE/TIME: 05/27/2023 19:20 EDT FREE TEXT SOURCE: FINAL REPORTS Final Report [] Verified Date/Time/Personnel: 05/30/2023 10:49 EDT Light Staphylococcus aureus This staphylococci does not demonstrate inducible clindamycin resistance in vitro. Moderate normal skin terrance present. Sensitivity testing not indicated. PRELIMINARY REPORTS Preliminary Report [] Verified Date/Time/Personnel: 05/29/2023 09:54 EDT Light Staphylococcus aureus THOMAS to follow Moderate normal skin terrance present. Sensitivity testing not indicated. Preliminary Report [] Verified Date/Time/Personnel: 05/28/2023 13:05 EDT Culture results pending. STAINS GS [] Verified Date/Time/Personnel: 05/27/2023 20:25 EDT 1+ Gram Positive Cocci SUSCEPTIBILITY RESULTS Staphylococcus aureus Antibiotic THOMAS Dilut THOMAS Inter Ampicillin >8 Beta Lactamase Positive Ampicillin/ <=8/4 Susceptible Sulbactam Azithromycin >4 Resistant Cefepime <=4 Susceptible Cefotaxime <=8 Susceptible Ceftaroline <=0.5 Susceptible Ceftriaxone <=4 Susceptible Ciprofloxacin <=1 Susceptible Clindamycin <=0.25 Susceptible Erythromycin >4 Resistant Imipenem <=4 Susceptible Levofloxacin <=1 Susceptible Meropenem <=2 Susceptible Oxacillin 1 Susceptible Penicillin >2 Beta Lactamase Positive Piperacillin/ <=8 Susceptible Tazobactam Tetracycline <=4 Susceptible Trimethoprim/ <=0.5/9.5 Susceptible Sulfa Vancomycin 1 Susceptible Performing Locations *1: This test was performed at: [facility], [facility] [address] [place] [address], [id number] , [facility] ([place]) 09-08-2022 Evaluation + Plan note Future Scheduled TestsProstate Specific Antigen 12/11/22A1C Hemoglobin 09/08/22Complete Blood Count 12/11/22Complete Blood Count 09/08/22Lipid Profile 12/11/22Lipid Profile 09/08/22Microalbumin Level Urine 12/11/22Complete Metabolic Panel 12/11/22Complete Metabolic Panel 09/08/22 [facility] 04-13-2022 Note ORIGINAL EXAMINATION: RIGHT UPPER QUADRANT ULTRASOUND 04/13/2022 8:58 am COMPARISON: None. HISTORY: ORDERING SYSTEM PROVIDED HISTORY: Reason for Exam: spot on pancreas when got CT for kidney stones FINDINGS: LIVER: The liver is diffusely increased in echogenicity with poor through transmission of sound. Mild hepatomegaly. No focal suspicious mass although evaluation somewhat limited given increased echogenicity. BILIARY SYSTEM: There is a nonmobile 3 mm echogenic foci without shadowing most consistent with a polyp. There is dependently layered gallbladder sludge usually of no clinical significance. There is no gallstone.. A Phrygian cap is incidentally noted. No gallbladder wall thickening or pericholecystic edema. Common bile duct is within normal limits measuring 4 mm. RIGHT KIDNEY: The right kidney is grossly unremarkable without evidence of hydronephrosis. PANCREAS: Evaluation of the pancreas is suboptimal given overlying bowel gas and body habitus. Visualized portions of the pancreas are unremarkable. OTHER: No evidence of right upper quadrant ascites. IMPRESSION: Mild hepatomegaly and increased hepatic echogenicity suggestive of hepatic steatosis or other underlying diffuse chronic hepatocellular process. 3 mm gallbladder polyp is a benign finding. No follow-up is needed.. Only limited visualization of the pancreas. If there is strong concern for pathology, dedicated CT of the pancreas without and with contrast should be considered. I have personally reviewed the images of this examination and agree with the resident's findings and interpretations. Interpreted by: Ronald Paiz MD Preliminary Report By: Leora Chen Electronically signed By Ronald Paiz MD Dictated Date: 04/13/2022 9:08:14 AM Prelim Date: 04/13/2022 10:09:01 AM Sign Date: 04/13/2022 10:09:01 AM Ordering Provider: [facility] 04-13-2022 Note ORIGINAL EXAMINATION: RIGHT UPPER QUADRANT ULTRASOUND 04/13/2022 8:58 am COMPARISON: None. HISTORY: ORDERING SYSTEM PROVIDED HISTORY: Reason for Exam: spot on pancreas when got CT for kidney stones FINDINGS: LIVER: The liver is diffusely increased in echogenicity with poor through transmission of sound. Mild hepatomegaly. No focal suspicious mass although evaluation somewhat limited given increased echogenicity. BILIARY SYSTEM: There is a nonmobile 3 mm echogenic foci without shadowing most consistent with a polyp. There is dependently layered gallbladder sludge usually of no clinical significance. There is no gallstone.. A Phrygian cap is incidentally noted. No gallbladder wall thickening or pericholecystic edema. Common bile duct is within normal limits measuring 4 mm. RIGHT KIDNEY: The right kidney is grossly unremarkable without evidence of hydronephrosis. PANCREAS: Evaluation of the pancreas is suboptimal given overlying bowel gas and body habitus. Visualized portions of the pancreas are unremarkable. OTHER: No evidence of right upper quadrant ascites. IMPRESSION: Mild hepatomegaly and increased hepatic echogenicity suggestive of hepatic steatosis or other underlying diffuse chronic hepatocellular process. 3 mm gallbladder polyp is a benign finding. No follow-up is needed.. Only limited visualization of the pancreas. If there is strong concern for pathology, dedicated CT of the pancreas without and with contrast should be considered. I have personally reviewed the images of this examination and agree with the resident's findings and interpretations. Interpreted by: Ronald Paiz MD Preliminary Report By: Leora Chen Electronically signed By Ronald Paiz MD Dictated Date: 04/13/2022 9:08:14 AM Prelim Date: 04/13/2022 10:09:01 AM Sign Date: 04/13/2022 10:09:01 AM Ordering Provider: MARTA RIDDLE [facility] Kristel 01-23-2022 History of Presen t illness Narrative Patient is here for CT results. CT showed nonobstructing 3mm stone in the lower pole of the right kidney. He has recently passed several stones this past month. He states he has no past hx of stones. First stone was in August. . Denies sx today. Chronic BPH sx are mild and stable. Denies urgency and frequency. Denies dysuria. Denies hematuria. Nocturia x1. No medication for LUT'S. Most recent PSA was 1.26 on 02/19. . ED is an issue. Patient also has Phimosis OW-Wfhokhd-Xjpcmzfph Work Phone: 07-09-2021 Note . MICRO - Microbiology PROCEDURE: Urine Culture [*1] SOURCE: Urine, Clean Catch BODY SITE: COLLECTED DATE/TIME: 07/07/2021 11:05 EST RECEIVED DATE/TIME: 07/07/2021 20:38 EST START DATE/TIME: 07/07/2021 20:38 EST FREE TEXT SOURCE: FINAL REPORTS Final Report [] Verified Date/Time/Personnel: 07/09/2021 07:49 EST 50,000 - 100,000 cfu/ml Multiple bacterial morphotypes present. Probable Contamination. Suggest recollection if clinically indicated. PRELIMINARY REPORTS Preliminary Report [] Verified Date/Time/Personnel: 07/08/2021 14:55 EST Culture results pending. Performing Locations *1: This test was performed at: [address], [id number] , [facility] ([place]) 07-08-2021 Miscellaneous Notes Associated Problem(s): LVH (left ventricular hypertrophy) Noted on recent echo, continue low-dose ARB Associated Problem(s): Newly recognized heart murmur Echo from April 2020 shows aortic sclerosis, borderline mild aortic stenosis mean gradient of 9 Associated Problem(s): Hyperlipidemia Continue Pravachol 20 mg daily with target LDL less than 100 Associated Problem(s): Sleep apnea History of compliance documented in this encounter [facility] 07-08-2021 History of Presen t illness Narrative Interventional Cardiology Clinic Follow-up Heart & Vascular [facility] 07/01/2021 Mark Mason MD [address] [facility] [address] [place] [id number] Patient: Nash Ferguson Date of : 1950 (70 y.o.) PCP: Provider Not in System Assessment & Plan Sleep apnea History of compliance Hyperlipidemia Continue Pravachol 20 mg daily with target LDL less than 100 Newly recognized heart murmur Echo from April 2020 shows aortic sclerosis, borderline mild aortic stenosis mean gradient of 9 LVH (left ventricular hypertrophy) Noted on recent echo, continue low-dose ARB Follow-up: Return in about 1 year (around 07/01/2022). Chief Complaint: Follow-up (6 months f/u without medication list/bottles) Subjective History of Present Illness: Nash Ferguson is a 70 y.o. male who comes in today for routine cardiac follow-up. He was swimming a lot until he got busy with things in his life. The last time he went swimming was in April of this year. He could do so without complaints of chest pain, shortness of breath or palpitations. He has not had any recurrent memory issues. His biggest issues are related to arthritis symptoms from his psoriatic arthritis including shoulders and neck. He feels from a cardiac standpoint, he is doing well. Objective Tobacco Use Smoking Status Never Smoker Smokeless Tobacco Never Used ECG 12 lead Final Result by Mark Mason MD (12/06/2018 1247) Echocardiogram complete with bubble study Final Result by Viktor Gregory MD (04/23/2020 5620) HOME Medications: Patient's Medications New Prescriptions No medications on file Previous Medications ASCORBIC ACID, VITAMIN C, (VITAMIN C) 1000 MG TABLET Take 1,000 mg by mouth daily . ASPIRIN 81 MG EC TABLET Take 81 mg by mouth daily . CHOLECALCIFEROL, VITAMIN D3, (VITAMIN D3) 5,000 UNIT TAB Take 10,000 Units by mouth daily . CYANOCOBALAMIN (VITAMIN B-12) 1000 MCG TABLET Take 1,000 mcg by mouth daily . DOCUSATE SODIUM (COLACE) 100 MG CAPSULE Take 200 mg by mouth 2 (two) times a day . [id number] ORAL Take by mouth 2 (two) times a day . LISDEXAMFETAMINE (VYVANSE) 70 MG CAPSULE Take 1 (one) capsule (70 mg total) by mouth every morning (Days supply per fill: 30) . LOSARTAN (COZAAR) 25 MG TABLET TAKE 1 (ONE) TABLET (25 MG TOTAL) BY MOUTH DAILY. LUTEIN 20 MG TAB Take 20 mg by mouth daily . LYSINE 1,000 MG TAB Take 1,000 mg by mouth daily . METFORMIN (GLUCOPHAGE-XR) 500 MG 24 HR TABLET Take 1 (one) tablet (500 mg total) by mouth daily with breakfast . METHYLCELLULOSE (CITRUCEL, SUCROSE,) ORAL POWDER Take by mouth 2 (two) times a day . MULTIVITAMIN CAPSULE Take 1 capsule by mouth daily. PRAVASTATIN (PRAVACHOL) 20 MG TABLET TAKE 1 (ONE) TABLET (20 MG TOTAL) BY MOUTH EVERY EVENING . PSYLLIUM (METAMUCIL) 3.4 GRAM PACKET Take 1 packet by mouth daily . RESVERATROL 100 MG CAP Take 1 tablet by mouth daily . SELENIUM 200 MCG TAB Take 200 mcg by mouth daily. SERTRALINE (ZOLOFT) 100 MG TABLET Take 1 (one) tablet (100 mg total) by mouth daily. ZINC 50 MG TAB Take 50 mg by mouth daily. Modified Medications No medications on file Discontinued Medications No medications on file Vital Signs: BP 122/72 (BP Location: Left arm, Patient Position: Sitting, BP Cuff Size: Other (Comment)) Comment (BP Cuff Size): Large Pulse 84 Ht 6' 3 Wt 124.3 kg (274 lb) SpO2 98% BMI 34.25 kg/m Physical Exam Constitutional: Appearance: Normal appearance. He is well-developed and well-nourished. He is not toxic-appearing or sickly-appearing. HENT: Head: Normocephalic and atraumatic. Right Ear: Hearing and external ear normal. Left Ear: Hearing and external ear normal. Nose: Nose normal. Eyes: General: Lids are normal. Extraocular Movements: EOM normal. Conjunctiva/sclera: Conjunctivae normal. Pupils: Pupils are equal, round, and reactive to light. Neck: Vascular: No carotid bruit. Cardiovascular: Rate and Rhythm: Normal rate and regular rhythm. Pulses: Normal pulses. Heart sounds: S1 normal and S2 normal. Murmur heard. Systolic murmur is present with a grade of 1/6. Comments: No cyanosis, clubbing; trace edema Pulmonary: Effort: Pulmonary effort is normal. Breath sounds: Normal breath sounds. Musculoskeletal: General: Normal range of motion. Cervical back: Normal range of motion. Skin: General: Skin is warm and dry. Findings: Rash present. Neurological: Mental Status: He is alert and oriented to person, place, and time. Psychiatric: Mood and Affect: Mood and affect normal. Behavior: Behavior normal. Thought Content: Thought content normal. Judgment: Judgment normal. Labs: I personally reviewed and interpreted the labs documented below. No results found for: CHOL, LDLCALC, LDLDIRECT, TRIG, HDL Creatinine clearance cannot be calculated (Patient's most recent lab result is older than the maximum 14 days allowed.) documented in this encounter [facility] 12-30-2020 Miscellaneous Notes Pt last seen 09/10/2020, F/u in 6 months[address] Recall is in place. Refilled Pravastatin 20mg Daily #90 with 0 refill. Last FLP 10/04/2017 documented in this encounter [facility] Evaluation + Plan note Future Appointments Appointment Date:09/28/2021 10:50:00 AM Scheduled Provider:MARTA RIDDLE Location:[facility] Appointment Type:PC OV Follow Up Diagnostic Tests PendingUrine Culture 07/07/21Urinalysis Microscopic 07/07/21 [facility] Evaluation + Plan note Future Appointments Appointment Date:03/30/2022 03:00:00 PM Scheduled Provider:MARTA RIDDLE Location:[facility] Appointment Type:PC OV Follow Up Diagnostic Tests PendingUrine Culture 03/25/22 [facility] Evaluation + Plan note Future Appointments Appointment Date:04/15/2022 04:00:00 PM Scheduled Provider: Location:[facility] Appointment Type:VL AOH - Venous Insufficiency 1 Leg (Out Appointment Date:06/10/2022 02:20:00 PM Scheduled Provider:MARTA RIDDLE Location:[facility] Appointment Type:PC OV Controlled Medication [facility] Evaluation + Plan note Future Appointments Appointment Date:06/10/2022 02:20:00 PM Scheduled Provider:MARTA RIDDLE Location:[facility] Appointment Type:PC OV Controlled Medication [facility] Evaluation + Plan note Future Appointments Appointment Date:12/15/2022 11:00:00 AM Scheduled Provider:LETTY ZAVALETA Location:[facility] Appointment Type:PC OV Future Scheduled [id number] Hemoglobin 09/08/22Complete Blood Count 09/08/22Lipid Profile 09/08/22Microalbumin Level Urine 12/11/22Complete Metabolic Panel 09/08/22 [facility] Evaluation + Plan note Future Appointments Appointment Date:03/18/2023 11:30:00 AM Scheduled Provider:LETTY ZAVALETA Location:[facility] Appointment Type:PC OV Future Scheduled [id number] Hemoglobin 09/08/22Complete Blood Count 09/08/22Lipid Profile 09/08/22Albumin/Creatinine Ratio, Random Urine 12/22/22Microalbumin Level Urine 12/11/22Complete Metabolic Panel 09/08/22 [facility] Evaluation + Plan note Future Appointments Appointment Date:06/03/2023 04:00:00 PM Scheduled Provider:WILFRID CANNON Location:[facility] Appointment Type:PC OV Appointment Date:06/17/2023 11:30:00 AM Scheduled Provider:LETTY ZAVALETA Location:[facility] Appointment Type:PC OV Future Scheduled TestsAlbumin/Creatinine Ratio, Random Urine 12/22/22Microalbumin Level Urine 12/11/22 [facility] Diagnosis Type 2 diabetes mellitus without complication, without long-term current use of insulin (HCC) 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) [facility] Diagnosis Type 2 diabetes mellitus without complication, with long-term current use of insulin (HCC)- [facility] Narrative No data available for this section [facility] Hospital Discharge instructions No data available for this section [facility] Note* RONALD PAIZ MD: SIGN, VERIFY Event Display: VL Duplex Scan Aorta/Iliacs Complete AOH [facility] Progress note No data available for this section [facility] Assessments Diagnosis ERRONEOUS ENCOUNTER--DISREGA RD - Primary Diagnosis Primary osteoarthritis of lori th knees - Primary Attention deficit hyperactiv ity disorder (ADHD), predominantly inattentive type Diagnosis Back pain, unspecified back location, unspecified back pain laterality, unspecified chronicity - Primary Type 2 diabetes mellitus wit hout complication, without long-term current use of insulin (HCC) Chronic midline low back adilson n without sciatica 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) Obesity (BMI 35.0-39.9 witho ut comorbidity) Diagnosis Attention deficit hyperactiv ity disorder (ADHD), predominantly inattentive type Diagnosis Attention deficit hyperactiv ity disorder (ADHD), predominantly inattentive type Primary osteoarthritis of lori th knees Diagnosis Type 2 diabetes mellitus wit hout complication, without long-term current use of insulin (HCC) Varicosities of leg Diagnosis Newly recognized heart murmur- Primary Hyperlipidemia, unspecified hyperlipidemia type Obstructive sleep apnea syndrome Obstructive sleep apnea (adult) (pediatric) Type 2 diabetes mellitus with diabetic dermatitis, without long-term current use of insulin (HCC) Dizziness Dizziness and giddiness Diagnosis Type 2 diabetes mellitus without complication, without long-term current use of insulin (HCC)- Primary Abnormal chest x-ray Nonspecific (abnormal) findings on radiological and other examination of lung field Psoriatic arthritis (HCC) Psoriatic arthropathy Attention deficit hyperactivity disorder (ADHD), predominantly inattentive type Diagnosis Attention deficit hyperactivity disorder (ADHD), predominantly inattentive type Diagnosis Attention deficit hyperactivity disorder (ADHD), predominantly inattentive type- Primary Body mass index (BMI) of 33.0 to 33.9 in adult Psoriatic arthritis (HCC) Psoriatic arthropathy Mixed hyperlipidemia Type 2 diabetes mellitus with diabetic dermatitis, without long-term current use of insulin (HCC) Diagnosis Mixed hyperlipidemia Body mass index (BMI) of 33.0 to 33.9 in adult Newly recognized heart murmur Diagnosis Mixed hyperlipidemia Newly recognized heart murmur Transient confusion Transient global amnesia Transient global amnesia Other transient cerebral ischemic attacks and related syndromes Obstructive sleep apnea syndrome Obstructive sleep apnea (adult) (pediatric) Diagnosis TGA (transient global amnesia) Transient global amnesia Diagnosis TGA (transient global amnesia) Transient global amnesia Diagnosis Transient alteration of awareness Transient alteration of awareness Transient confusion Diagnosis Psoriatic arthritis (HCC) Psoriatic arthropathy Slac (scapholunate advanced collapse) of wrist, left Carpal tunnel syndrome of left wrist Carpal tunnel syndrome Cubital tunnel syndrome on left Lesion of ulnar nerve Diagnosis Slac (scapholunate advanced collapse) of wrist, left S/P carpal tunnel release Other postprocedural status Diagnosis Wrist arthritis Unspecified arthropathy, forearm Diagnosis Obstructive sleep apnea syndrome- Primary Obstructive sleep apnea (adult) (pediatric) Mixed hyperlipidemia Newly recognized heart murmur Diagnosis Obstructive sleep apnea syndrome- Primary Obstructive sleep apnea (adult) (pediatric) Mixed hyperlipidemia Newly recognized heart murmur Transient confusion Instructions * Patient Instructions - Matt Hernandez MD - 12/28/2017 11:52 AM EDT Formatting of this note may be different from the original. Problem List Items Addressed This Visit Musculoskeletal and Integument OA (osteoarthritis) of knee - Primary Will see if we can get better control of pain with a slightly higher dose of the long acting Tramadol. Relevant Medications traMADol 150 mg MP25 Other Attention deficit hyperactivity disorder (ADHD), predominantly inattentive type Relevant Medications lisdexamfetamine (VYVANSE) 70 MG capsule lisdexamfetamine (VYVANSE) 70 MG capsule (Start on 03/01/2018) lisdexamfetamine (VYVANSE) 70 MG capsule (Start on 01/28/2018) in this encounter* Patient Instructions - Matt Hernandez MD - 10/04/2017 1:14 PM EST Formatting of this note may be different from the original. Problem List Items Addressed This Visit Problem List Items Addressed This Visit Endocrine Diabetes mellitus (HCC) Recent decision about 3 months ago to forego the Metformin might be contributing to the protein in your urine. However the protein in your urine is a reason to immediately stop the Meloxicam! Tylenolonly for pain. Relevant Medications losartan (COZAAR) 25 MG tablet Other Relevant Orders POC Microalbumin/Creatinine Ratio (Completed) Lipid Panel Hemoglobin A1c 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) Losartan 25 mg once a day to help protect the kidneys from the effects of diabetes. Relevant Medications losartan (COZAAR) 25 MG tablet Other Relevant Orders Comprehensive Metabolic Panel Other Low back pain Low back pain consistent with that associated with OA of the iliosacral as well as joint of the lower lumbar region especially L5/S1 Other Visit Diagnoses Back pain, unspecified back location, unspecified back pain laterality, unspecified chronicity - Primary Relevant Orders POC Urinalysis Dipstick (Completed) CBC and Differential Learning About How to Have a Healthy Back What causes back pain? Back pain is often caused by overuse, strain, or injury. For example, people often hurt their backsplaying sports or working in the yard, being jolted in a car accident, or lifting something too heavy. Aging plays a part too. Your bones and muscles tend to lose strength as you age, which makes injurymore likely. The spongy discs between the bones of the spine (vertebrae) may suffer from wear and tear and no longer provide enough cushion between the bones. A disc that bulges or breaks open (herniated disc) can press on nerves, causing back pain. In some people, back pain is the result of arthritis, broken vertebrae caused by bone loss (osteoporosis), illness, or a spine problem. Although most people have back pain at one time or another, there are steps you can take to make itless likely. How can you have a healthy back? Reduce stress on your back through good posture Slumping or slouching alone may not cause low back pain. But after the back has been strained or injured, bad posture can make pain worse. Sleep in a position that maintains your back's normal curves and on a mattress that feels comfortable. Sleep on your side with a pillow between your knees, or sleep on your back with a pillow under your knees. These positions can reduce strain on your back. Stand and sit up straight. Good posture generally means your ears, shoulders, and hips are in a straight line. If you must stand for a long time, put one foot on a stool, ledge, or box. Switch feet every now and then. Sit in a chair that is low enough to let you place both feet flat on the floor with both knees nearly level with your hips. If your chair or desk is too high, use a footrest to raise your knees. Place a small pillow, a rolled-up towel, or a lumbar roll in the curve of your back if you need extra support. Try a kneeling chair, which helps tilt your hips forward. This takes pressure off your lower back. Try sitting on an exercise ball. It can rock from side to side, which helps keep your back loose. When driving, keep your knees nearly level with your hips. Sit straight, and drive with both hands on the steering wheel. Your arms should be in a slightly bent position. Reduce stress on your back through careful lifting Squat down, bending at the hips and knees only. If you need to, put one knee to the floor and extend your other knee in front of you, bent at a right angle (half kneeling). Press your chest straight forward. This helps keep your upper back straight while keeping a slight arch in your low back. Hold the load as close to your body as possible, at the level of your belly button (navel). Use your feet to change direction, taking small steps. Lead with your hips as you change direction. Keep your shoulders in line with your hips as you move. Set down your load carefully, squatting with your knees and hips only. Exercise and stretch your back Do some exercise on most days of the week, if your doctor says it is okay. You can walk, run, swim,or cycle. Stretch your back muscles. Here are a few exercises to try: Lie on your back, and gently pull one bent knee to your chest. Put that foot back on the floor, andthen pull the other knee to your chest. Do pelvic tilts. Lie on your back with your knees bent. Tighten your stomach muscles. Pull your belly button (navel) in and up toward your ribs. You should feel like your back is pressing to the floor and your hips and pelvis are slightly lifting off the floor. Hold for 6 seconds while breathing smoothly. Sit with your back flat against a wall. Keep your core muscles strong. The muscles of your back, belly (abdomen), and buttocks support yourspine. Pull in your belly and imagine pulling your navel toward your spine. Hold this for 6 seconds, then relax. Remember to keep breathing normally as you tense your muscles. Do curl-ups. Always do them with your knees bent. Keep your low back on the floor, and curl your shoulders toward your knees using a smooth, slow motion. Keep your arms folded across your chest. If this bothers your neck, try putting your hands behind your neck (not your head), with your elbows spread apart. Lie on your back with your knees bent and your feet flat on the floor. Tighten your belly muscles, and then push with your feet and raise your buttocks up a few inches. Hold this position 6 seconds as you continue to breathe normally, then lower yourself slowly to the floor. Repeat 8 to 12 times. If you like group exercise, try Pilates or yoga. These classes have poses that strengthen the core muscles. Lead a healthy lifestyle Stay at a healthy weight to avoid strain on your back. Do not smoke. Smoking increases the risk of osteoporosis, which weakens the spine. If you need helpquitting, talk to your doctor about stop-smoking programs and medicines. These can increase your chances of quitting for good. Where can you learn more? Log into your personal health record on https://[employer] and enter L315 in the Education box to learn more about Learning About How to Have a Healthy Back. Current as of: December 22, 2015 Content Version: 11.2 1672-2294 [employer]. Care instructions adapted under license by your healthcare professional. If you have questions about a medical condition or this instruction, always ask your healthcare professional. [employer] disclaims any warranty or liability for your use of this information. Learning About How to Have a Healthy Back What causes back pain? Back pain is often caused by overuse, strain, or injury. For example, people often hurt their backsplaying sports or working in the yard, being jolted in a car accident, or lifting something too heavy. Aging plays a part too. Your bones and muscles tend to lose strength as you age, which makes injurymore likely. The spongy discs between the bones of the spine (vertebrae) may suffer from wear and tear and no longer provide enough cushion between the bones. A disc that bulges or breaks open (herniated disc) can press on nerves, causing back pain. In some people, back pain is the result of arthritis, broken vertebrae caused by bone loss (osteoporosis), illness, or a spine problem. Although most people have back pain at one time or another, there are steps you can take to make itless likely. How can you have a healthy back? Reduce stress on your back through good posture Slumping or slouching alone may not cause low back pain. But after the back has been strained or injured, bad posture can make pain worse. Sleep in a position that maintains your back's normal curves and on a mattress that feels comfortable. Sleep on your side with a pillow between your knees, or sleep on your back with a pillow under your knees. These positions can reduce strain on your back. Stand and sit up straight. Good posture generally means your ears, shoulders, and hips are in a straight line. If you must stand for a long time, put one foot on a stool, ledge, or box. Switch feet every now and then. Sit in a chair that is low enough to let you place both feet flat on the floor with both knees nearly level with your hips. If your chair or desk is too high, use a footrest to raise your knees. Place a small pillow, a rolled-up towel, or a lumbar roll in the curve of your back if you need extra support. Try a kneeling chair, which helps tilt your hips forward. This takes pressure off your lower back. Try sitting on an exercise ball. It can rock from side to side, which helps keep your back loose. When driving, keep your knees nearly level with your hips. Sit straight, and drive with both hands on the steering wheel. Your arms should be in a slightly bent position. Reduce stress on your back through careful lifting Squat down, bending at the hips and knees only. If you need to, put one knee to the floor and extend your other knee in front of you, bent at a right angle (half kneeling). Press your chest straight forward. This helps keep your upper back straight while keeping a slight arch in your low back. Hold the load as close to your body as possible, at the level of your belly button (navel). Use your feet to change direction, taking small steps. Lead with your hips as you change direction. Keep your shoulders in line with your hips as you move. Set down your load carefully, squatting with your knees and hips only. Exercise and stretch your back Do some exercise on most days of the week, if your doctor says it is okay. You can walk, run, swim,or cycle. Stretch your back muscles. Here are a few exercises to try: Lie on your back, and gently pull one bent knee to your chest. Put that foot back on the floor, andthen pull the other knee to your chest. Do pelvic tilts. Lie on your back with your knees bent. Tighten your stomach muscles. Pull your belly button (navel) in and up toward your ribs. You should feel like your back is pressing to the floor and your hips and pelvis are slightly lifting off the floor. Hold for 6 seconds while breathing smoothly. Sit with your back flat against a wall. Keep your core muscles strong. The muscles of your back, belly (abdomen), and buttocks support yourspine. Pull in your belly and imagine pulling your navel toward your spine. Hold this for 6 seconds, then relax. Remember to keep breathing normally as you tense your muscles. Do curl-ups. Always do them with your knees bent. Keep your low back on the floor, and curl your shoulders toward your knees using a smooth, slow motion. Keep your arms folded across your chest. If this bothers your neck, try putting your hands behind your neck (not your head), with your elbows spread apart. Lie on your back with your knees bent and your feet flat on the floor. Tighten your belly muscles, and then push with your feet and raise your buttocks up a few inches. Hold this position 6 seconds as you continue to breathe normally, then lower yourself slowly to the floor. Repeat 8 to 12 times. If you like group exercise, try Pilates or yoga. These classes have poses that strengthen the core muscles. Lead a healthy lifestyle Stay at a healthy weight to avoid strain on your back. Do not smoke. Smoking increases the risk of osteoporosis, which weakens the spine. If you need helpquitting, talk to your doctor about stop-smoking programs and medicines. These can increase your chances of quitting for good. Where can you learn more? Log into your personal health record on [email or web address] and enter L315 in the Education box to learn more about Learning About How to Have a Healthy Back. Current as of: December 22, 2015 Content Version: 11.2 1489-2658 [facility]. Care instructions adapted under license by your healthcare professional. If you have questions about a medical condition or this instruction, always ask your healthcare professional. [facility] disclaims any warranty or liability for your use of this information. Back Stretches: Exercises Your Care Instructions Here are some examples of exercises for stretching your back. Start each exercise slowly. Ease off the exercise if you start to have pain. Your doctor or physical therapist will tell you when you can start these exercises and which ones will work best for you. How to do the exercises Overhead stretch 1. Stand comfortably with your feet shoulder-width apart. 2. Looking straight ahead, raise both arms over your head and reach toward the ceiling. Do not allow your head to tilt back. 3. Hold for 15 to 30 seconds, then lower your arms to your sides. 4. Repeat 2 to 4 times. Side stretch 1. Stand comfortably with your feet shoulder-width apart. 2. Raise one arm over your head, and then lean to the other side. 3. Slide your hand down your leg as you let the weight of your arm gently stretch your side muscles. Hold for 15 to 30 seconds. 4. Repeat 2 to 4 times on each side. Press-up 1. Lie on your stomach, supporting your body with your forearms. 2. Press your elbows down into the floor to raise your upper back. As you do this, relax your stomach muscles and allow your back to arch without using your back muscles. As your press up, do not letyour hips or pelvis come off the floor. 3. Hold for 15 to 30 seconds, then relax. 4. Repeat 2 to 4 times. Relax and rest 1. Lie on your back with a rolled towel under your neck and a pillow under your knees. Extend your arms comfortably to your sides. 2. Relax and breathe normally. 3. Remain in this position for about 10 minutes. 4. If you can, do this 2 or 3 times each day. Follow-up care is a hyman part of your treatment and safety. Be sure to make and go to all appointments, and call your doctor if you are having problems. It's also a good idea to know your test resultsand keep a list of the medicines you take. Where can you learn more? Log into your personal health record on [email or web address] and enter Y090 in the Education box to learn more about Back Stretches: Exercises. Current as of: December 22, 2015 Content Version: 11.2 1465-2991 [facility]. Care instructions adapted under license by your healthcare professional. If you have questions about a medical condition or this instruction, always ask your healthcare professional. [facility] disclaims any warranty or liability for your use of this information. Back Stretches: Exercises Your Care Instructions Here are some examples of exercises for stretching your back. Start each exercise slowly. Ease off the exercise if you start to have pain. Your doctor or physical therapist will tell you when you can start these exercises and which ones will work best for you. How to do the exercises Overhead stretch 5. Stand comfortably with your feet shoulder-width apart. 6. Looking straight ahead, raise both arms over your head and reach toward the ceiling. Do not allow your head to tilt back. 7. Hold for 15 to 30 seconds, then lower your arms to your sides. 8. Repeat 2 to 4 times. Side stretch 5. Stand comfortably with your feet shoulder-width apart. 6. Raise one arm over your head, and then lean to the other side. 7. Slide your hand down your leg as you let the weight of your arm gently stretch your side muscles. Hold for 15 to 30 seconds. 8. Repeat 2 to 4 times on each side. Press-up 5. Lie on your stomach, supporting your body with your forearms. 6. Press your elbows down into the floor to raise your upper back. As you do this, relax your stomach muscles and allow your back to arch without using your back muscles. As your press up, do not letyour hips or pelvis come off the floor. 7. Hold for 15 to 30 seconds, then relax. 8. Repeat 2 to 4 times. Relax and rest 5. Lie on your back with a rolled towel under your neck and a pillow under your knees. Extend your arms comfortably to your sides. 6. Relax and breathe normally. 7. Remain in this position for about 10 minutes. 8. If you can, do this 2 or 3 times each day. Follow-up care is a hyman part of your treatment and safety. Be sure to make and go to all appointments, and call your doctor if you are having problems. It's also a good idea to know your test resultsand keep a list of the medicines you take. Where can you learn more? Log into your personal health record on [email or web address] and enter Y090 in the Education box to learn more about Back Stretches: Exercises. Current as of: December 22, 2015 Content Version: 11.2 9545-0880 [facility]. Care instructions adapted under license by your healthcare professional. If you have questions about a medical condition or this instruction, always ask your healthcare professional. [facility] disclaims any warranty or liability for your use of this information. Diabetic Nephropathy: Care Instructions Your Care Instructions Finding out that your kidneys have been damaged can be very distressing. It may have taken you by surprise, since damage to kidneys usually does not cause symptoms early on. It is normal to feel upset and afraid. Having diabetic nephropathy means that for some time you have had high blood sugar, which damages the kidneys. Healthy kidneys keep protein in your blood, where it belongs. Damaged kidneys do not work the way they should. Your kidneys are letting protein pass into your urine. Sometimes diabetic kidney disease can lead to kidney failure. Your doctor will tell you how you might be able to slow damage to your kidneys. In many cases, prompt and regular treatment can prevent kidney failure. You will need to take medicine and may need to make a number of changes in your normal routines. If you can keep your blood sugar and blood pressure under control and take certain medicines, you may reduce your chance of kidney failure. Follow-up care is a hyman part of your treatment and safety. Be sure to make and go to all appointments, and call your doctor if you are having problems. It's also a good idea to know your test resultsand keep a list of the medicines you take. How can you care for yourself at home? Take your medicines exactly as prescribed. It is very important that you take your insulin or otherdiabetes medicine as your doctor tells you. Call your doctor if you think you are having a problem with your medicine. Try to keep blood sugar in your target range. Eat a variety of foods, with carbohydrate spread out in your meals. Your doctor may restrict your protein. A dietitian can help you plan meals. If your doctor recommends it, get more exercise. Walking is a good choice. Bit by bit, increase theamount you walk every day. Try for at least 30 minutes on most days of the week. Check your blood sugar as often as your doctor recommends. Take and record your blood pressure at home if your doctor tells you to. Learn the importance of the two measures of blood pressure (such as 130 over 80, or 130/80). To take your blood pressure at home: Ask your doctor to check your blood pressure monitor. He or she can make sure that it is accurate and that the cuff fits you. Also ask your doctor to watch you to make sure that you are using it right. Do not eat, use tobacco products, or use medicine known to raise blood pressure (such as some nasaldecongestant sprays) before taking your blood pressure. Avoid taking your blood pressure if you have just exercised or are nervous or upset. Rest at least 15 minutes before taking a reading. Eat a low-salt diet to help keep your blood pressure in your target range. Do not smoke. Smoking raises your risk of many health problems, including diabetic nephropathy. If you need help quitting, talk to your doctor about stop- smoking programs and medicines. These can increase your chances of quitting for good. Do not take ibuprofen, naproxen, or similar medicines, unless your doctor tells you to. These medicines may make kidney problems worse. When should you call for help? Call 911 anytime you think you may need emergency care. For example, call if: You passed out (lost consciousness). Call your doctor now or seek immediate medical care if: You have not urinated at all in the last 24 hours. You have trouble urinating or can urinate only very small amounts. You are confused or have trouble thinking clearly. You are very thirsty, lightheaded, or dizzy, or you feel like you may pass out (lose consciousness). You have a weak, fast heartbeat. You have swelling in your hands or feet. You have blood in your urine. You are extremely tired or weak. Watch closely for changes in your health, and be sure to contact your doctor if you have any problems. Where can you learn more? Log into your personal health record on [email or web address] and enter P361 in the Education box to learn more about Diabetic Nephropathy: Care Instructions. Current as of: November 04, 2015 Content Version: 11.2 1221-7297 [facility]. Care instructions adapted under license by your healthcare professional. If you have questions about a medical condition or this instruction, always ask your healthcare professional. [facility] disclaims any warranty or liability for your use of this information. in this encounter* Patient Instructions - Matt Hernandez MD - 09/15/2017 12:13 PM EST Formatting of this note may be different from the original. Problem List Items Addressed This Visit Other Attention deficit hyperactivity disorder (ADHD), predominantly inattentive type Inability to take earlier to to the tendency to fade prior to the end of the work day. 3-4 days perweek at delay of sleep onset suggest the need to have regular evening exercise to flush the residual out. Cannot increase due to maximum dose. Cannot take earlier or fade will occur more frequently. So need to create a physicologic flush . You are probably having sleep deficiency that is contributing to your fade at this point in time. Still should consider a reduction but would like to see what 30 minutes of evening Target heart rate Of a physiologic flush has upon the symptoms complex.. in this encounter* Patient Instructions - Matt Hernandez MD - 06/21/2017 12:37 PM EST Formatting of this note may be different from the original. Problem List Items Addressed This Visit Musculoskeletal and Integument OA (osteoarthritis) of knee Completed the review of current standards for chronic pain medication for his knee and hand pain. He was taking an average of 3 per day and tried to get by on the Meloxicam alone and desire to get back on medications. Will continue on PT to improve strength and balance and hopefully delay the jointreplacement per Dr. Esparza. If three per day of the short Acting are not enough might consider increase to the Tramadol 200 mg once a day Other Attention deficit hyperactivity disorder (ADHD), predominantly inattentive type NO change in the Vyvanse but will watch for side effect. Relevant Medications lisdexamfetamine (VYVANSE) 70 MG capsule (Start on 07/12/2017) lisdexamfetamine (VYVANSE) 70 MG capsule (Start on 07/21/2017) lisdexamfetamine (VYVANSE) 70 MG capsule (Start on 08/20/2017) in this encounter* Patient Instructions - Matt Hernandez MD - 03/24/2017 10:30 AM EDT Formatting of this note may be different from the original. Problem List Items Addressed This Visit Endocrine Diabetes mellitus (HCC) Will repeat your A1C today. Goal >6.4 and less than 7.0. Cardiovascular and Mediastinum Varicosities of leg in this encounter* Patient Instructions* Matt Hernandez MD - 08/17/2018 10:54 AM EST Problem List Items Addressed This Visit Endocrine Diabetes mellitus (HCC) - Primary Your A1C was 5.7 and would not stop the Metformin unless there is a correlation between being hungry and being less aware or less energetic. Relevant Orders POC Glycosylated Hemoglobin (Hb A1C) (Completed) Musculoskeletal and Integument Psoriatic arthritis (HCC) Will relay the information as it Return to the same address of the physician that is managing your care. Relevant Medications traMADol (ULTRAM-ER) 200 MG 24 hr tablet triamcinolone (KENALOG) 0.025 % cream Other Abnormal chest x-ray IN order to help define the relationship between the finding and the potential for harm regard to change in medications suggest a PFT with pre and post bronchodilator to help define the treatment option is any indicated. Relevant Orders PFT spirometry pre and post bronchodilator Attention deficit hyperactivity disorder (ADHD), predominantly inattentive type Do not report and issues with difficulties with sleep onset. Your BP is normal on today's visit. Ifyour sleep architecture is allowing you to wake up with less stimulatin due to the medication that might affect you wakefullnes sand cognitive processing during the day. Relevant Medications lisdexamfetamine (VYVANSE) 70 MG capsule in this encounter* Patient Instructions* Matt Hernandez MD - 09/14/2018 11:28 AM EST Problem List Items Addressed This Visit Other Attention deficit hyperactivity disorder (ADHD), predominantly inattentive type Will not make no change to the current dose of of the medication. But again suggest that 20 ounces of caffeine are the limit. None After 12 noon as long as adequate fluid. Relevant Medications lisdexamfetamine (VYVANSE) 70 MG capsule (Start on 11/15/2018) in this encounter* Patient Instructions* Sarah Loera CNP - 11/17/2018 11:59 AM EDT Problem List Items Addressed This Visit Endocrine Diabetes mellitus (HCC) Not checking blood sugars but have had no symptoms of high or low blood sugars. Will recheck your A1C on labs. Relevant Orders Hemoglobin A1c Musculoskeletal and Integument Psoriatic arthritis (HCC) Relevant Medications traMADol (ULTRAM-ER) 200 MG 24 hr tablet Other Hyperlipidemia I would like you to obtain some fasting blood work. This means that you can not have anything to eat or drink for about 8-10 hours before your blood is drawn. The only thing you are allowed to have before your labs is a glass of water or a cup of BLACK coffee. Thank you. The lab is open here at the office M-F 730am-4pm, you do not need an appointment, just walk in. Relevant Orders Lipid Panel Comprehensive Metabolic Panel Body mass index (BMI) of 33.0 to 33.9 in adult Eat meat, vegetables, nuts and seeds, some fruit, very little starch and absolutely no sugar. If you can grow it or kill it, then that's what you should be eating..... Chicken, turkey, fish pork, beef, ALL vegetables and fruit. If it is processed or you can not pronounce the ingredients, do not eat it! Shop the outside perimeter of the grocery store. Listen to your body, if you are hungry all the time you may need to increase your intake of healthyveggies and small healthy snacks. Eat whole, healthy foods and you won't need to count calories. Increase your activity level; the more you move your body the healthier you will be and the better you will feel! Diet and Exercise is not a fad, it really works! Attention deficit hyperactivity disorder (ADHD), predominantly inattentive type - Primary Doing well on the Vyvanse at this time. No side effects. Patient is followed every 6 months by cardiology. Relevant Medications lisdexamfetamine (VYVANSE) 70 MG capsule lisdexamfetamine (VYVANSE) 70 MG capsule (Start on 2018) lisdexamfetamine (VYVANSE) 70 MG capsule (Start on 01/16/2019) documented in this encounter* Patient Instructions* Kiesha Deleon MA - 02/06/2020 10:30 AM EDT How to contact your Care Team: Provider: Dr. Mason Nurse: Jaimie Santana RN In case of an emergency please call 911. REFILLS: When in need for refills please call your care team or the office at [phone] Please include medication name, pharmacy name, and specify 30-day or 90-day supply. Please check with your pharmacy within 24 hours of request for your refill. You must follow up as directed to continue current refills. Thank you! documented in this encounter* Patient Instructions* Kiesha Deleon MA - 09/10/2020 2:00 PM EST How to contact your Care Team: Provider: Dr. Mason Nurse: Jaimie Santana RN In case of an emergency please call 911. REFILLS: When in need for refills please call your care team or the office at [phone] Please include medication name, pharmacy name, and specify 30-day or 90-day supply. Please check with your pharmacy within 24 hours of request for your refill. You must follow up as directed to continue current refills. Thank you! documented in this encounter* Patient Instructions* Kiesha Deleon MA - 09/10/2020 2:00 PM EST How to contact your Care Team: Provider: Dr. Mason Nurse: Jaimie Santana RN In case of an emergency please call 911. REFILLS: When in need for refills please call your care team or the office at [phone] Please include medication name, pharmacy name, and specify 30-day or 90-day supply. Please check with your pharmacy within 24 hours of request for your refill. You must follow up as directed to continue current refills. Thank you! documented in this encounter Summary Purpose Family History No Family History Records FoundUnknown Family Member Name Dates Details No pertinent family history: Mother, Father(V49.89, Z78.9) Status:Active Unknown Family Member Name Dates Details No pertinent family history: Mother, Father(V49.89, Z78.9) Status:Active Unknown Family Member Name Dates Details No pertinent family history: Mother, Father(V49.89, Z78.9) Status:Active Unknown Family Member Name Dates Details No pertinent family history: Mother, Father(V49.89, Z78.9) Status:Active Advance Directives No Advanced Directives Records FoundDocuments on File Type Date Recorded 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 Advance Directives and Living Will Documents on File Type Date Recorded 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 Advance Directives and Livin g Will 02/06/2020 10:25 AM Documents on File Type Date Recorded 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 Advance Directives and Livin g Will 04/08/2020 10:25 AM Documents on File Type Date Recorded 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 Advance Directives and Livin g Will 04/23/2020 2:48 PM Documents on File Type Date Recorded 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 Subjective: Patient ID: Nash Ferguson is a 66 y.o. male. SUSIE Kingston presents today for interval visit. He has a history of diabetes and narcolepsy. His [id number] was performed in 2016 his result was 6.4. He had a recent ER visit where he had excessive bleeding that would not stop with direct pressure for period of time from a varicose vein in his ankle area. He would also like refills of his Mobic, Zoloft, Vyvanse, as well as compression socks prescription. 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 He denies any change in exercise tolerance palpitation. In general he has been trying to be more active though he is not engaged in a regular exercise program because of joint painrelated to his psoriatic arthritis. The following portions of the patient's history were reviewed and updated as appropriate: allergies, current medications, past family history, past medical history, past social history, past surgicalhistory and problem list. Review of Systems Constitutional: Positive for fatigue. Negative for activity change, chills and fever. HENT: Positive for hearing loss. Negative for ear discharge, ear pain, trouble swallowing and voicechange. Bilateral hearing aides Eyes: Negative for pain and visual disturbance. Respiratory: Negative for cough, shortness of breath and wheezing. Cardiovascular: Negative for chest pain and palpitations. Gastrointestinal: Negative for abdominal pain, blood in stool, constipation and diarrhea. Endocrine: Negative for cold intolerance, heat intolerance and polyuria. Genitourinary: Negative for difficulty urinating, dysuria and frequency. Musculoskeletal: Positive for arthralgias. Negative for gait problem and joint swelling. Recent CTR bilateral. Improved hand pain Skin: Positive for rash. Psoraisis Allergic/Immunologic: Negative for immunocompromised state. Neurological: Negative for dizziness, seizures, numbness and headaches. Hematological: Negative for adenopathy. Does not bruise/bleed easily. Psychiatric/Behavioral: Negative for decreased concentration and suicidal ideas. The patient is notnervous/anxious. Objective: Vitals: 03/24/17 0959 BP: 124/79 Temp: 98.5 F (36.9 C) Pulse: 76 Resp: 16 SpO2: 99% Physical Exam Constitutional: He is oriented to person, place, and time. He appears well- developed and well-nourished. HENT: Head: Normocephalic. Right Ear: External ear normal. Left Ear: External ear normal. Mouth/Throat: Oropharynx is clear and moist. Eyes: Conjunctivae and EOM are normal. Pupils are equal, round, and reactive to light. Right eye exhibits no discharge. Left eye exhibits no discharge. No scleral icterus. Neck: Normal range of motion. No JVD present. No tracheal deviation present. No thyromegaly present. Cardiovascular: Normal rate and regular rhythm. No murmur heard. Pulmonary/Chest: No stridor. No respiratory distress. He has no wheezes. Abdominal: Soft. He exhibits no distension. There is no tenderness. Musculoskeletal: He exhibits no edema or tenderness. Lymphadenopathy: He has no cervical adenopathy. Neurological: He is alert and oriented to person, place, and time. No cranial nerve deficit. Skin: Skin is warm. No rash noted. Psychiatric: He has a normal mood and affect. His behavior is normal. Judgment and thought content normal. Assessment/Plan: Problem List Items Addressed This Visit Endocrine Diabetes mellitus (HCC) Will repeat your A1C today. Goal >6.4 and less than 7.0. Cardiovascular and Mediastinum Varicosities of leg in this encounter* Mark Mason MD - 07/05/2018 7:30 PM EST Formatting of this note may be different from the original. It was a pleasure to see Nash Ferguson as a new patient. Problem List Items Addressed This Visit Endocrine Diabetes mellitus (HCC) Continue to be managed by primary care team. I did recommend aspirin 81 mg daily and statin as stated above for target LDL of less than 100 Respiratory Sleep apnea Compliant Other Hyperlipidemia Most recent LDL was 107. I did review with Nash and his that given his diabetes, his LDL should be less than 100. I did [address] him on pravastatin 20 mg daily with plans to repeat labs in 3-6 months Relevant Medications pravastatin (PRAVACHOL) 20 MG tablet Newly recognized heart murmur - Primary Soft systolic murmur noted, I feel likely this represents aortic sclerosis or perhaps mild aortic stenosis. There are no symptoms or clinical need for echocardiography because there would be no role for any further intervention based on this echo result given his lack of symptoms. Dizziness He has some dizziness associated with standing up quickly. I encouraged him to hydrate more aggressively until his urine is clear He comes in today as a new patient for evaluation after recent cardiac murmur was noted. He is herewith his . He tells me that he is reasonably active, limited by osteoarthritis in his knees. Heis able to use a push lawnmower without complaints of exertional chest pain, shortness of breath orcalf claudication. He does occasionally feel dizzy when he bends over or stands up quickly. He is known to snore and does treat his obstructive sleep apnea. He has a history of diabetes. He has a history of bilateral hip replacement, carpal tunnel surgery,urethral stricture, and hernia repair. He has a remote history of tobacco abuse. He quit nearly 40 years ago. He consumes alcohol socially. He denies any illicit drug use. He denies any first-degree relative with premature cardiovascular disease. He also has a history of psoriatic arthritis. EKG today shows sinus rhythm with right bundle branch block, left anterior fascicular block. His right bundle is chronic and known to him. We did review his recent labs including his LDL of 107. Review of Systems Constitution: Negative for diaphoresis, malaise/fatigue, weight gain and weight loss. HENT: Positive for hearing loss. Negative for nosebleeds and tinnitus. Eyes: Negative for blurred vision and visual disturbance. Cardiovascular: Negative for chest pain, claudication, cyanosis, dyspnea on exertion, irregular heartbeat, leg swelling, near-syncope, orthopnea, palpitations, paroxysmal nocturnal dyspnea and syncope. Sleeps on elevated pillow Respiratory: Positive for snoring. Negative for hemoptysis and shortness of breath. Endocrine: Negative for cold intolerance and heat intolerance. Hematologic/Lymphatic: Does not bruise/bleed easily. Skin: Negative for flushing, poor wound healing and rash. Musculoskeletal: Negative for back pain, muscle weakness and myalgias. Gastrointestinal: Negative for abdominal pain, change in bowel habit, melena, nausea and vomiting. Genitourinary: Negative for decreased libido and hematuria. Neurological: Negative for loss of balance and numbness. Psychiatric/Behavioral: Negative for memory loss. The patient is not nervous/anxious. PMH/PSH/Social Hx/List of Medications reviewed and pertinent findings noted in HPI BP 130/71 Pulse 95 Ht 6' 3 Wt 119.9 kg (264 lb 6.4 oz) SpO2 97% BMI 33.05 kg/m Physical Exam Constitutional: He is oriented to person, place, and time. He appears well- developed and well-nourished. HENT: Head: Normocephalic and atraumatic. Right Ear: External ear normal. Left Ear: External ear normal. Nose: Nose normal. Eyes: Pupils are equal, round, and reactive to light. EOM are normal. Neck: Normal range of motion. Carotid bruit is not present. Cardiovascular: Normal rate and regular rhythm. Exam reveals no gallop and no friction rub. Murmur heard. Systolic murmur is present with a grade of 1/6 Pulmonary/Chest: Effort normal and breath sounds normal. No respiratory distress. He has no rales. Abdominal: Soft. Neurological: He is alert and oriented to person, place, and time. Skin: Skin is warm and dry. Psychiatric: He has a normal mood and affect. His behavior is normal. Judgment and thought content normal. Nursing note and vitals reviewed. Return in about 5 months (around 12/03/2018). Thank you for allowing to participate in the care of your patient. Should you have any questions, please do not hesitate to contact me. Best wishes and warm regards Mark Mason MD Portions of this note utilized [employer] dictation software, please excuse any typographical or grammatical errors. * Kiesha Deleon MA - 07/05/2018 11:44 AM EST Review of Systems Constitution: Negative for diaphoresis, malaise/fatigue, weight gain and weight loss. HENT: Positive for hearing loss. Negative for nosebleeds and tinnitus. Eyes: Negative for blurred vision and visual disturbance. Cardiovascular: Negative for chest pain, claudication, cyanosis, dyspnea on exertion, irregular heartbeat, leg swelling, near-syncope, orthopnea, palpitations, paroxysmal nocturnal dyspnea and syncope. Sleeps on elevated pillow Respiratory: Positive for snoring. Negative for hemoptysis and shortness of breath. Endocrine: Negative for cold intolerance and heat intolerance. Hematologic/Lymphatic: Does not bruise/bleed easily. Skin: Negative for flushing, poor wound healing and rash. Musculoskeletal: Negative for back pain, muscle weakness and myalgias. Gastrointestinal: Negative for abdominal pain, change in bowel habit, melena, nausea and vomiting. Genitourinary: Negative for decreased libido and hematuria. Neurological: Negative for loss of balance and numbness. Psychiatric/Behavioral: Negative for memory loss. The patient is not nervous/anxious. in this encounter* Matt Hernandez MD - 08/17/2018 10:38 AM EST Subjective Patient ID: Nash Ferguson is a 67 y.o. male. Chief Complaint Patient presents with COPD Medication Refill Tramadol, Vyvanse, Triamcinolone cream Diabetes HPI interval visit. Refill for chronic pain medication: Current Medications for Pain: Tramadol 200 mg once a day Nature of the pain: Aching and Burning as well as stiffness Location of the pain: hand, feet, knees and low back Intensity: Pain at the time of this visit 2-3 , average pain in the last 24 hours, 2-3 , average pain in the last 7 days, 2-3 ; number of days in the last 7 days, 7 or above, 0/7 , lowest painlevel in the last 7 days, 2 Exacerbating/relieving factors: issues at work with flare of pain in fingers , wrist and knees. Adverse effects of medications: no issues with sedation or slurred speech constipation OARRS/NARxCHECK Report Received and Assessed: 08/17/18 Functional Assessment: Patient has a slight limp to his walk slowly from a sitting to standing position. Abnormal chest x-ray: Patient presents today concerned because he recently was told that he had COPD as a result of the findings on screening chest x-ray ordered by catalogue illustrator. Patient was then called by the catalogue illustrator office and said it needed to be evaluated by PCP and probable referral to dermatology procedural physician prior to being started on the biologic. Patient had been on an oral biologic for psoriasis and is currently being switched from that to 1 of the injectables. Part of the protocol most likely for that process is to check an interval chest x-ray. I have explained this to patient did not and at length that this is a seems very acceptable. Typically we do that to make sure no underlying significant disease prior to starting the patient on medication that would result in a flare of that disease associated with suppressing the immune system typically this is related to making sure that the patient does not have tuberculosis, or underlying malignancy of the lung. In his case because his chest is deep the x-ray was interpreted by the radiologist as being hyperinflated and consistent with COPD. Even though the patient has never smoked and he does not have a chronic cough it was felt to meet the criteria as probable COPD based on x-ray findings. I have suggested the patient that if the catalogue illustrator requires consultation with a dermatology procedural physician we would be happy to oblige. He just needs to let us know who is acceptable on his plan. The diagnosis of COPD can be made with findings on the chest x-ray can also be made with a pulmonary function test. Typically I would addressthis with a follow-up pulmonary function test with and without bronchodilator to determine if patien t's condition warrants and would respond to what kind of inhaled medication. Diabetes: Patient diagnosed with diabetes in 2017. Patient is currently on a controlled calorie controlled carbohydrate diet. Patient describes their lifestyle as not active. He reports no hypoglycemic visits since last seen. He is monitoring his blood glucose levels at home on a regular basis. Taking all current medications as prescribed. These include: 81 mg aspirin daily, coenzyme Q 10 200 mg daily, metformin 500 mg extended release once a day, pravastatin 20 mg tablet daily. [id number] testing today hemoglobin A1c: 5.7. Psoriatic arthritis: Patient currently is being seen at the [facility] department of rheumatology. He he is currently taking Otezla 30 mg once a day. Upon completion of the evaluation by dermatology procedural physician the plan is to start him on 1 of the injectable Biologics. He requested a refill of his topical triamcinolone ointment today for his topical treatment of psoriasis. Current Outpatient Medications on File Prior to Visit Medication Sig ascorbic acid, vitamin C, (vitamin C) 1000 MG tablet Take 1,000 mg by mouth daily. aspirin 81 MG EC tablet Take 1 (one) tablet (81 mg total) by mouth daily . cholecalciferol, vitamin D3, (VITAMIN D3) 5,000 unit Tab Take 5,000 Units by mouth daily . CHONDROITIN SULFATE A (CHONDROITIN SULFATE ORAL) Take 1,500 mg by mouth daily. coenzyme Q10 (CO Q-10) 200 mg capsule Take 200 mg by mouth daily . comp.stocking,knee,long,medium Misc 30-40 mm HG above the calf . Apply in am and off in pm Reasons:venous insufficiency. lisdexamfetamine (VYVANSE) 70 MG capsule Take 1 (one) capsule (70 mg total) by mouth every morning (Days supply per fill: 30) Start: 08/12/18. losartan (COZAAR) 25 MG tablet Take 1 (one) tablet (25 mg total) by mouth daily. metFORMIN (GLUCOPHAGE-XR) 500 MG 24 hr tablet TAKE 1 (ONE) TABLET (500 MG TOTAL) BY MOUTH DAILY WITH BREAKFAST. methylcellulose (CITRUCEL, SUCROSE,) oral powder Take by mouth daily. multivitamin capsule Take 1 capsule by mouth daily. pravastatin (PRAVACHOL) 20 MG tablet Take 1 (one) tablet (20 mg total) by mouth every evening . predniSONE (DELTASONE) 5 MG tablet Take 5 mg by mouth 2 (two) times a day . resveratrol 250 mg cap Take 1 tablet by mouth daily . selenium 200 mcg Tab Take 200 mcg by mouth daily. sertraline (ZOLOFT) 100 MG tablet Take 1 (one) tablet (100 mg total) by mouth daily. traMADol (ULTRAM-ER) 200 MG 24 hr tablet Take 200 mg by mouth daily . hpuv-wypz-jde-jht-wyd-nyot-hor [id number] mg Tab Take 1 tablet by mouth daily TUMERIC OTC . zinc 50 mg Tab Take 50 mg by mouth daily. METHYLSULFONYLMETHANE (MSM ORAL) Take 1,200 mg by mouth daily. OTEZLA 30 mg Tab Take 30 mg by mouth 2 (two) times a day . No current facility-administered medications on file prior to visit. Allergies Allergen Reactions Clindamycin GI Intolerance Keflex [Cephalexin] Rash Xarelto [Rivaroxaban] Rash The following portions of the patient's history were reviewed and updated as appropriate: allergies, current medications, past family history, past medical history, past social history, past surgicalhistory and problem list. Review of Systems Constitutional: Positive for fatigue. Negative for activity change, chills and fever. HENT: Positive for hearing loss. Negative for ear discharge, ear pain, trouble swallowing and voicechange. Bilateral hearing aides Eyes: Negative for pain and visual disturbance. Respiratory: Negative for cough, shortness of breath and wheezing. Cardiovascular: Negative for chest pain and palpitations. Gastrointestinal: Negative for abdominal pain, blood in stool, constipation and diarrhea. Endocrine: Negative for cold intolerance, heat intolerance and polyuria. Genitourinary: Negative for difficulty urinating, dysuria and frequency. Musculoskeletal: Positive for arthralgias and back pain. Negative for gait problem and joint swelling. Recent CTR bilateral. Improved hand pain Skin: Positive for rash. Psoraisis Allergic/Immunologic: Negative for immunocompromised state. Neurological: Negative for dizziness, seizures, numbness and headaches. Hematological: Negative for adenopathy. Does not bruise/bleed easily. Psychiatric/Behavioral: Negative for decreased concentration and suicidal ideas. The patient is notnervous/anxious. Objective Vitals: 08/17/18 0958 BP: 116/71 BP Location: Right arm Patient Position: Sitting BP Cuff Size: Adult Pulse: 88 Resp: 16 Temp: 98.7 F (37.1 C) TempSrc: Oral SpO2: 97% Weight: 117.9 kg (260 lb) Height: 6' 3 Estimated body mass index is 32.5 kg/m as calculated from the following: Height as of this encounter: 6' 3 . Weight as of this encounter: 117.9 kg (260 lb). Physical Exam Constitutional: He is oriented to person, place, and time. He appears well- developed and well-nourished. HENT: Head: Normocephalic. Right Ear: External ear normal. Left Ear: External ear normal. Mouth/Throat: Oropharynx is clear and moist. Eyes: Pupils are equal, round, and reactive to light. Conjunctivae and EOM are normal. Right eye exhibits no discharge. Left eye exhibits no discharge. No scleral icterus. Neck: Normal range of motion. No JVD present. No tracheal deviation present. No thyromegaly present. Cardiovascular: Normal rate and regular rhythm. No murmur heard. Pulmonary/Chest: No stridor. No respiratory distress. He has no wheezes. Abdominal: Soft. He exhibits no distension. There is no tenderness. Musculoskeletal: He exhibits no edema or tenderness. Tenderness to palpation over the low back particular on the left side centering just above the RIS joint on the left side. No lateral hip tenderness noted. No pain associated with palpation over the gluteus or the lateral greater trochanteric region. Sitting hip flexion is negative negative straight leg raise. No problems with balance or gait. Lymphadenopathy: He has no cervical adenopathy. Neurological: He is alert and oriented to person, place, and time. No cranial nerve deficit. Skin: Skin is warm. No rash noted. Psychiatric: He has a normal mood and affect. His behavior is normal. Judgment and thought content normal. Assessment/Plan: Problem List Items Addressed This Visit Endocrine Diabetes mellitus (HCC) - Primary Your A1C was 5.7 and would not stop the Metformin unless there is a correlation between being hungry and being less aware or less energetic. Relevant Orders POC Glycosylated Hemoglobin (Hb A1C) (Completed) Musculoskeletal and Integument Psoriatic arthritis ([facility]) Will relay the information as it Return to the same address of the physician that is managing your care. Other Abnormal chest x-ray IN order to help define the relationship between the finding and the potential for harm regard to change in medications suggest a PFT with pre and post bronchodilator to help define the treatment option is any indicated. Attention deficit hyperactivity disorder (ADHD), predominantly inattentive type Do not report and issues with difficulties with sleep onset. Your BP is normal on today's visit. Ifyour sleep architecture is allowing you to wake up with less stimulatin due to the medication that might affect you wakefullnes sand cognitive processing during the day. For any new medications prescribed today, patient was educated about indications for the medication, how to take the medication and potential side effects of the medications. in this encounter* Matt Hernandez MD - 10/01/2018 7:24 PM EST Subjective Patient ID: Nash Ferguson is a 67 y.o. male. Chief Complaint Patient presents with PFT results ADHD HPI interval visit: PFT results: Patient recently had PFT results which returned negative. The purpose of the PFT results were that patient is getting ready to have a change in remittive therapy for his psoriasis and the catalogue illustrator ordered chest x- ray which suggested lung disease. The PFT revealed no evidence of any obstructive component. ADHD: Patient has a history of adult ADD HD that he has had for at least 20 years. There is been nochange in symptoms or problems. No problems with sleep onset palpitations blood pressures been wellcontrolled. He denies any change in exercise tolerance. Refill for chronic pain medication: Current Medications for Pain: Tramadol 200 mg once a day Nature of the pain: Aching and Burning as well as stiffness Location of the pain: hand, feet, knees and low back Intensity: Pain at the time of this visit 2-3 , average pain in the last 24 hours, 2-3 , average pain in the last 7 days, 2-3 ; number of days in the last 7 days, 7 or above, 0/7 , lowest painlevel in the last 7 days, 2 Exacerbating/relieving factors: issues at work with flare of pain in fingers , wrist and knees. Adverse effects of medications: no issues with sedation or slurred speech constipation OARRS/NARxCHECK Report Received and Assessed: 10/01/18 Functional Assessment: No signs of sedation slurred speech or agitation Allergies Allergen Reactions Clindamycin GI Intolerance Keflex [Cephalexin] Rash Xarelto [Rivaroxaban] Rash The following portions of the patient's history were reviewed and updated as appropriate: allergies, current medications, past family history, past medical history, past social history, past surgicalhistory and problem list. Review of Systems Constitutional: Positive for fatigue. Negative for activity change, chills and fever. HENT: Positive for hearing loss. Negative for ear discharge, ear pain, trouble swallowing and voicechange. Bilateral hearing aides Eyes: Negative for pain and visual disturbance. Respiratory: Negative for cough, shortness of breath and wheezing. Cardiovascular: Negative for chest pain and palpitations. Gastrointestinal: Negative for abdominal pain, blood in stool, constipation and diarrhea. Endocrine: Negative for cold intolerance, heat intolerance and polyuria. Genitourinary: Negative for difficulty urinating, dysuria and frequency. Musculoskeletal: Positive for arthralgias and back pain. Negative for gait problem and joint swelling. Recent CTR bilateral. Improved hand pain Skin: Positive for rash. Psoraisis Allergic/Immunologic: Negative for immunocompromised state. Neurological: Negative for dizziness, seizures, numbness and headaches. Hematological: Negative for adenopathy. Does not bruise/bleed easily. Psychiatric/Behavioral: Negative for decreased concentration and suicidal ideas. The patient is notnervous/anxious. Objective Vitals: 09/14/18 1020 BP: 118/68 BP Location: Left arm Patient Position: Sitting BP Cuff Size: Adult Pulse: 80 Resp: 16 SpO2: 98% Weight: 119.3 kg (263 lb) Height: 6' 3 Estimated body mass index is 32.87 kg/m as calculated from the following: Height as of this encounter: 6' 3 . Weight as of this encounter: 119.3 kg (263 lb). Physical Exam Constitutional: He is oriented to person, place, and time. He appears well- developed and well-nourished. HENT: Head: Normocephalic. Right Ear: External ear normal. Left Ear: External ear normal. Mouth/Throat: Oropharynx is clear and moist. Eyes: Pupils are equal, round, and reactive to light. Conjunctivae and EOM are normal. Right eye exhibits no discharge. Left eye exhibits no discharge. No scleral icterus. Neck: Normal range of motion. No JVD present. No tracheal deviation present. No thyromegaly present. Cardiovascular: Normal rate and regular rhythm. No murmur heard. Pulmonary/Chest: No stridor. No respiratory distress. He has no wheezes. Abdominal: Soft. He exhibits no distension. There is no tenderness. Musculoskeletal: He exhibits no edema or tenderness. Tenderness to palpation over the low back particular on the left side centering just above the RIS joint on the left side. No lateral hip tenderness noted. No pain associated with palpation over the gluteus or the lateral greater trochanteric region. Sitting hip flexion is negative negative straight leg raise. No problems with balance or gait. Lymphadenopathy: He has no cervical adenopathy. Neurological: He is alert and oriented to person, place, and time. No cranial nerve deficit. Skin: Skin is warm. No rash noted. Psychiatric: He has a normal mood and affect. His behavior is normal. Judgment and thought content normal. Assessment/Plan: Problem List Items Addressed This Visit Other Attention deficit hyperactivity disorder (ADHD), predominantly inattentive type Will not make no change to the current dose of of the medication. But again suggest that 20 ounces of caffeine are the limit. None After 12 noon as long as adequate fluid. Relevant Medications lisdexamfetamine (VYVANSE) 70 MG capsule (Start on 11/15/2018) For any new medications prescribed today, patient was educated about indications for the medication, how to take the medication and potential side effects of the medications. in this encounter* Shira Saucedo LPN - 11/17/2018 12:25 PM EDT Rooming Documentation How often do you need to have someone help you when you read instructions, pamphlets or other written material from your doctor or pharmacy? Health Literacy Patient Response: Rarely Are you experiencing any side effects or adverse reactions to your medications? Patient response: Yes; enbrel Do you have any problems taking your medications? Patient Response: No Patient states they do understand their medications Are you taking any [id number] medications or supplements? Patient Response: yes Since last being seen in this office, have you seen another healthcare provider? Patient Response: Yes. If yes, where did you see this provider? catalogue illustrator * Sarah Loera CNP - 11/17/2018 11:49 AM EDT Subjective Patient ID: Nash Ferguson is a 67 y.o. male. ADD- Symptoms began 25+ years ago and is described as inattentive, impulsiveness. Behaviors create problems at home, work, and socially. It occurs daily and symptoms are aggravated by deadlines, distractions, stress, and tasks requiring attention to detail. Relieving factors include behavior therapy and stimulant medications. Associated symptoms include bored easily, disorganization, distracted easily, impulsiveness, loses/forgets things, restlessness, short attention span and talks excessively. Positive for impulsivity. Positive for depression and anxiety. Current treatment include Vyvanse. Denies weight loss/gain. Avoids taking medication with citrus fruit and juice. DM: Patient does not check blood sugars at home, will do serum A1C. Patient has no symptoms of highor low blood sugar events. Patient is currently on metformin daily with no issues or side effects. Psoriatic arthritis: Patient is currently on Tramadol daily to help with arthritis from psoriatic arthritis. Would love to talk to patient about decreasing Vyvanse and Tramadol but patient is in the middle of a psoriatic flare and in the process of changing arthritis medications. Will wait until next visit. Reviewed all recent labs and current medication list with patient. Also talked at length about eating a whole foods diet and cutting out all processed foods and sugars. The following portions of the patient's history were reviewed and updated as appropriate: allergies, current medications, past family history, past medical history, past social history, past surgicalhistory and problem list. Past Medical History: Diagnosis Date ADD (attention deficit hyperactivity disorder, inattentive type) 2006 Arthralgia 08/10/2018 Depression Diabetes mellitus ([facility]) 12/21/2016 Generalized OA Hearing impaired Hearing impaired 05/01/2016 Hyperlipidemia Insomnia 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 2 diabetes mellitus (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 Outpatient [address] Dr.Suppan Humphries TOTAL HIP ARTHROPLASTY Bilateral 2011 left september 2011 and right july 2012. [facility]/ [facility]. URETHRA SURGERY 2009 Dr. Fabrizio Humphries - urethral stricture Family History Problem Relation Age of Onset ADD / ADHD Mother Cancer Mother Rheum arthritis Mother Asperger's syndrome Brother Social History Tobacco Use Smoking status: Never Smoker Smokeless tobacco: Never Used Substance Use Topics Alcohol use: Yes Comment: socially/wine and liquor Drug use: No Medication List Accurate as of 11/17/18 11:59 PM. If you have any questions, ask your nurse or doctor. CHANGE how you take these medications * lisdexamfetamine 70 MG capsule Commonly known as: VYVANSE Take 1 (one) capsule (70 mg total) by mouth every morning (Days supply per fill: 30) . What changed: Another medication with the same name was added. Make sure you understand how and when to take each. * lisdexamfetamine 70 MG capsule Commonly known as: VYVANSE Take 1 (one) capsule (70 mg total) by mouth every morning (Days supply per fill: 30) Start: 12/17/18. Start taking on: 2018 What changed: You were already taking a medication with the same name, and this prescription was added. Make sure you understand how and when to take each. * lisdexamfetamine 70 MG capsule Commonly known as: VYVANSE Take 1 (one) capsule (70 mg total) by mouth every morning (Days supply per fill: 30) Start: 01/16/19. Start taking on: 01/16/2019 What changed: You were already taking a medication with the same name, and this prescription was added. Make sure you understand how and when to take each. * This list has 3 medication(s) that are the same as other medications prescribed for you. Read thedirections carefully, and ask your doctor or other care provider to review them with you. CONTINUE taking these medications aspirin 81 MG EC tablet Take 1 (one) tablet (81 mg total) by mouth daily . CHONDROITIN SULFATE ORAL CITRUCEL (SUCROSE) oral powder Generic drug: methylcellulose CO Q-10 200 mg capsule Generic drug: coenzyme Q10 comp.stocking,knee,long,medium Misc 30-40 mm HG above the calf . Apply in am and off in pm Reasons: venous insufficiency. losartan 25 MG tablet Commonly known as: COZAAR Take 1 (one) tablet (25 mg total) by mouth daily. metFORMIN 500 MG 24 hr tablet Commonly known as: GLUCOPHAGE-XR TAKE 1 (ONE) TABLET (500 MG TOTAL) BY MOUTH DAILY WITH BREAKFAST. MSM ORAL multivitamin capsule pravastatin 20 MG tablet Commonly known as: PRAVACHOL Take 1 (one) tablet (20 mg total) by mouth every evening . predniSONE 5 MG tablet Commonly known as: DELTASONE resveratrol 250 mg Cap selenium 200 mcg Tab sertraline 100 MG tablet Commonly known as: ZOLOFT Take 1 (one) tablet (100 mg total) by mouth daily. traMADol 200 MG 24 hr tablet Commonly known as: ULTRAM-ER Take 1 (one) tablet (200 mg total) by mouth daily (supplied 30 days) . triamcinolone 0.025 % cream Commonly known as: KENALOG Apply topically 2 (two) times a day . awvp-ogeh-bsd-qyf-npe-hnba-hor [id number] mg Tab vitamin C 1000 MG tablet Generic drug: ascorbic acid (vitamin C) VITAMIN D3 5,000 unit Tab tablet Generic drug: cholecalciferol (vitamin D3) zinc 50 mg Tab Where to Get Your Medications These medications were sent to [facility]/pharmacy #[id number] - [place], [place] - [address] [facility] [place] [facility] [address] lisdexamfetamine 70 MG capsule lisdexamfetamine 70 MG capsule lisdexamfetamine 70 MG capsule traMADol 200 MG 24 hr tablet Allergies Allergen Reactions Clindamycin GI Intolerance Keflex [Cephalexin] Rash Xarelto [Rivaroxaban] Rash Review of Systems Review of Systems Constitutional: Positive for fatigue. Negative for activity change, chills and fever. HENT: Positive for hearing loss. Negative for ear discharge, ear pain, trouble swallowing and voicechange. Bilateral hearing aides Eyes: Negative for pain and visual disturbance. Respiratory: Negative for cough, shortness of breath and wheezing. Cardiovascular: Negative for chest pain and palpitations. Gastrointestinal: Negative for abdominal pain, blood in stool, constipation and diarrhea. Endocrine: Negative for cold intolerance, heat intolerance and polyuria. Genitourinary: Negative for difficulty urinating, dysuria and frequency. Musculoskeletal: Positive for arthralgias and back pain. Negative for gait problem and joint swelling. Skin: Positive for rash. Psoraisis Allergic/Immunologic: Negative for immunocompromised state. Neurological: Negative for dizziness, seizures, numbness and headaches. Hematological: Negative for adenopathy. Does not bruise/bleed easily. Psychiatric/Behavioral: Negative for decreased concentration and suicidal ideas. The patient is notnervous/anxious. Vitals: 11/17/18 1103 BP: 121/78 BP Location: Right arm Patient Position: Sitting BP Cuff Size: Adult Pulse: 84 Resp: 18 Temp: 98.4 F (36.9 C) TempSrc: Oral SpO2: 98% Weight: 122 kg (269 lb) Height: 6' 3 Body mass index is 33.62 kg/m . Physical Exam Physical Exam Constitutional: He is oriented to person, place, and time. He appears well- developed and well-nourished. HENT: Right Ear: External ear normal. Left Ear: External ear normal. Nose: Nose normal. Mouth/Throat: Oropharynx is clear and moist and mucous membranes are normal. Eyes: Conjunctivae, EOM and lids are normal. Neck: Normal range of motion and full passive range of motion without pain. No JVD present. Cardiovascular: Normal rate, regular rhythm and normal heart sounds. No murmur heard. Pulmonary/Chest: Effort normal and breath sounds normal. Musculoskeletal: Normal range of motion. Neurological: He is alert and oriented to person, place, and time. Skin: Skin is warm and dry. Psychiatric: He has a normal mood and affect. His speech is normal and behavior is normal. Assessment/Plan Problem List Items Addressed This Visit Endocrine Diabetes mellitus (HCC) Not checking blood sugars but have had no symptoms of high or low blood sugars. Will recheck your A1C on labs. Relevant Orders Hemoglobin A1c Musculoskeletal and Integument Psoriatic arthritis (HCC) Relevant Medications traMADol (ULTRAM-ER) 200 MG 24 hr tablet Other Hyperlipidemia I would like you to obtain some fasting blood work. This means that you can not have anything to eat or drink for about 8-10 hours before your blood is drawn. The only thing you are allowed to have before your labs is a glass of water or a cup of BLACK coffee. Thank you. The lab is open here at the office M-F 730am-4pm, you do not need an appointment, just walk in. Relevant Orders Lipid Panel Comprehensive Metabolic Panel Body mass index (BMI) of 33.0 to 33.9 in adult Eat meat, vegetables, nuts and seeds, some fruit, very little starch and absolutely no sugar. If you can grow it or kill it, then that's what you should be eating..... Chicken, turkey, fish pork, beef, ALL vegetables and fruit. If it is processed or you can not pronounce the ingredients, do not eat it! Shop the outside perimeter of the grocery store. Listen to your body, if you are hungry all the time you may need to increase your intake of healthyveggies and small healthy snacks. Eat whole, healthy foods and you won't need to count calories. Increase your activity level; the more you move your body the healthier you will be and the better you will feel! Diet and Exercise is not a fad, it really works! Attention deficit hyperactivity disorder (ADHD), predominantly inattentive type - Primary Doing well on the Vyvanse at this time. No side effects. Patient is followed every 6 months by cardiology. Relevant Medications lisdexamfetamine (VYVANSE) 70 MG capsule lisdexamfetamine (VYVANSE) 70 MG capsule (Start on 2018) lisdexamfetamine (VYVANSE) 70 MG capsule (Start on 01/16/2019) OARRS/NARxCRANJANCK Report Received and Assessed: 11/17/18 Date controlled substance agreement signed: 11/17/18 Functional Assessment: No signs of sedation, slurred speech, or agitation Goals Blood Pressure < 130/80 High blood pressure makes your heart work too hard. It can cause heart attack, stroke and kidney disease. Exercise 3x per week (30 min per time) HDL-C > 45 HEMOGLOBIN A1C < 7.0 LDL CALC < 100 LDL or bad cholesterol can build up and clog your blood vessels. It can cause heart attack or stroke. If any referrals were placed at today's visit the patient was instructed to call the office if theyhavn't heard anything about the referral within 2 weeks of today's visit. For any new medications prescribed today, patient was educated about indications for the medication, how to take the medication and potential side effects of the medications. documented in this encounter* Mark Mason MD - 12/06/2018 12:48 PM EDT General Cardiology Clinic Follow-up Heart & Vascular [facility] 12/06/2018 Mark Mason MD [address] [place] [id number] Patient: Nash Ferguson Date of : 1950 (68 y.o.) PCP: Sarah Loera CNP Assessment & Plan Hyperlipidemia Currently taking pravastatin 20 mg daily with target LDL of 70-100 given history of diabetes. He istolerating it without difficulties and we reviewed benefits of plaque stabilization Body mass index (BMI) of 33.0 to 33.9 in adult Compliant Newly recognized heart murmur Fairly faint systolic murmur, no symptoms to warrant further evaluation. We reviewed that this is likely related to age-related changes Follow-up: Return in about 1 year (around 12/07/2019). Chief Complaint: Follow-up (pt denies any cardiac concerns for todays visit ) Subjective History of Present Illness: Nash Ferguson is a 68 y.o. male who comes in today with his for routine cardiac follow-up. They tell me they are on their third drug for psoriatic arthritis. He is having issues with joint discomfort. He is using the self- propelled mower without any complaints of chest pain or shortness of breath. He is currently tolerating his statin and is due for blood work in the near future. Objective Imaging: I independently reviewed the EKG and agree with the interpretation(s) with the following comments. Sinus rhythm, right bundle branch block, left anterior fascicular block ECG 12 lead Final Result by Mark Mason MD (12/06/2018 1247) Review of Systems: The following system(s) were reviewed and negative. Pertinent positive and negative findings are noted in the HPI. [x] Const [x] Eyes [x] ENT [x] Resp [] CV [x] GI [x] [x] Neuro [x] Musc [x] Skin [x] Psych [x] Endo [x] Allergy [x] Heme/Lymph HOME Medications: Current Outpatient Medications on File Prior to Visit Medication Sig ascorbic acid, vitamin C, (vitamin C) 1000 MG tablet Take 1,000 mg by mouth daily. cholecalciferol, vitamin D3, (VITAMIN D3) 5,000 unit Tab Take 5,000 Units by mouth daily . CHONDROITIN SULFATE A (CHONDROITIN SULFATE ORAL) Take 1,500 mg by mouth daily. coenzyme Q10 (CO Q-10) 200 mg capsule Take 200 mg by mouth daily . lisdexamfetamine (VYVANSE) 70 MG capsule Take 1 (one) capsule (70 mg total) by mouth every morning (Days supply per fill: 30) . lisdexamfetamine (VYVANSE) 70 MG capsule Take 1 (one) capsule (70 mg total) by mouth every morning (Days supply per fill: 30) Start: 12/17/18. losartan (COZAAR) 25 MG tablet Take 1 (one) tablet (25 mg total) by mouth daily. metFORMIN (GLUCOPHAGE-XR) 500 MG 24 hr tablet Take 1 (one) tablet (500 mg total) by mouth daily with breakfast . methylcellulose (CITRUCEL, SUCROSE,) oral powder Take by mouth daily. METHYLSULFONYLMETHANE (MSM ORAL) Take 1,200 mg by mouth daily. multivitamin capsule Take 1 capsule by mouth daily. pravastatin (PRAVACHOL) 20 MG tablet Take 1 (one) tablet (20 mg total) by mouth every evening . resveratrol 250 mg cap Take 1 tablet by mouth daily . selenium 200 mcg Tab Take 200 mcg by mouth daily. sertraline (ZOLOFT) 100 MG tablet Take 1 (one) tablet (100 mg total) by mouth daily. traMADol (ULTRAM-ER) 200 MG 24 hr tablet Take 1 (one) tablet (200 mg total) by mouth daily (supplied 30 days) . lymi-paha-frx-pfq-sgd-xcay-hor [id number] mg Tab Take 1 tablet by mouth daily TUMERIC OTC . zinc 50 mg Tab Take 50 mg by mouth daily. comp.stocking,knee,long,medium Misc 30-40 mm HG above the calf . Apply in am and off in pm Reasons:venous insufficiency. No current facility-administered medications on file prior to visit. Vital Signs: BP 128/77 (BP Location: Left arm, Patient Position: Sitting) Pulse 81 Ht 6' 3 Wt 122.4 kg (269 lb 14.4 oz) SpO2 97% BMI 33.74 kg/m Physical Exam Constitutional: He is oriented to person, place, and time. He appears well- developed and well-nourished. HENT: Head: Normocephalic and atraumatic. Nose: Nose normal. Mouth/Throat: Oropharynx is clear and moist. Eyes: Pupils are equal, round, and reactive to light. Conjunctivae and EOM are normal. Neck: Carotid bruit is not present. Cardiovascular: Normal rate, regular rhythm, S1 normal, S2 normal and normal pulses. Murmur heard. Systolic murmur is present with a grade of 1/6 at the apex. No cyanosis, clubbing or edema Pulmonary/Chest: Effort normal and breath sounds normal. Abdominal: Soft. He exhibits no distension. There is no tenderness. There is no guarding. Musculoskeletal: Normal range of motion. Neurological: He is alert and oriented to person, place, and time. Skin: Skin is warm and dry. Psychiatric: He has a normal mood and affect. His behavior is normal. Judgment and thought content normal. Labs: I personally reviewed and interpreted the labs documented below. No results found for: CHOL, LDLCALC, LDLDIRECT, TRIG, HDL Creatinine clearance cannot be calculated (Patient's most recent lab result is older than the maximum 14 days allowed.) * Kiesha Deleon MA - 12/06/2018 12:36 PM EDT Review of Systems Constitution: Negative for diaphoresis, malaise/fatigue, weight gain and weight loss. HENT: Positive for hearing loss. Negative for nosebleeds and tinnitus. Eyes: Negative for blurred vision and visual disturbance. Cardiovascular: Negative for chest pain, claudication, cyanosis, dyspnea on exertion, irregular heartbeat, leg swelling, near-syncope, orthopnea, palpitations, paroxysmal nocturnal dyspnea and syncope. Respiratory: Positive for snoring. Negative for hemoptysis and shortness of breath. Endocrine: Negative for cold intolerance and heat intolerance. Hematologic/Lymphatic: Does not bruise/bleed easily. Skin: Negative for flushing, poor wound healing and rash. Musculoskeletal: Negative for back pain, muscle weakness and myalgias. Gastrointestinal: Negative for abdominal pain, change in bowel habit, melena, nausea and vomiting. Genitourinary: Negative for decreased libido and hematuria. Neurological: Negative for loss of balance and numbness. Psychiatric/Behavioral: Positive for memory loss. The patient is not nervous/anxious. documented in this encounter* Mark Mason MD - 02/06/2020 4:26 PM EDT Interventional Cardiology Clinic Follow-up Heart & Vascular [facility] 02/06/2020 Mark Mason MD [address] [place] [address] Patient: Nash Ferguson Date of : 1950 (69 y.o.) PCP: Matt Hernandez MD Assessment & Plan No problem-specific Assessment & Plan notes found for this encounter. Follow-up: No follow-ups on file. Chief Complaint: Annual Exam (s/p d/c [facility] for confusion. work up unremarkable) Subjective History of Present Illness: Nash Ferguson is a 69 y.o. male Objective Imaging: I independently reviewed the EKG and agree with the interpretation(s) with the following comments. ECG 12 lead Final Result by Mark Mason MD (12/06/2018 1247) Review of Systems: The following system(s) were reviewed and negative. Pertinent positive and negative findings are noted in the HPI. [x] Const [x] Eyes [x] ENT [x] Resp [] CV [x] GI [x] [x] Neuro [x] Musc [x] Skin [x] Psych [x] Endo [x] Allergy [x] Heme/Lymph HOME Medications: Current Outpatient Medications on File Prior to Visit Medication Sig aspirin 81 MG EC tablet Take 81 mg by mouth daily . cholecalciferol, vitamin D3, (VITAMIN D3) 5,000 unit Tab Take 5,000 Units by mouth daily . cyanocobalamin (vitamin B-12) 50 mcg tablet Take 50 mcg by mouth daily . docusate sodium (COLACE) 100 MG capsule Take 200 mg by mouth 2 (two) times a day . lisdexamfetamine (VYVANSE) 70 MG capsule Take 1 (one) capsule (70 mg total) by mouth every morning (Days supply per fill: 30) . losartan (COZAAR) 25 MG tablet TAKE 1 (ONE) TABLET (25 MG TOTAL) BY MOUTH DAILY. lysine 1,000 mg Tab Take 1,000 mg by mouth daily . metFORMIN (GLUCOPHAGE-XR) 500 MG 24 hr tablet Take 1 (one) tablet (500 mg total) by mouth daily with breakfast . methylcellulose (CITRUCEL, SUCROSE,) oral powder Take by mouth daily. multivitamin capsule Take 1 capsule by mouth daily. resveratrol 250 mg cap Take 1 tablet by mouth daily . selenium 200 mcg Tab Take 200 mcg by mouth daily. sertraline (ZOLOFT) 100 MG tablet Take 1 (one) tablet (100 mg total) by mouth daily. zinc 50 mg Tab Take 50 mg by mouth daily. [DISCONTINUED] ascorbic acid, vitamin C, (vitamin C) 1000 MG tablet Take 1,000 mg by mouth daily. [DISCONTINUED] CHONDROITIN SULFATE A (CHONDROITIN SULFATE ORAL) Take 1,500 mg by mouth daily. [DISCONTINUED] comp.stocking,knee,long,medium Misc 30-40 mm HG above the calf . Apply in am and offin pm Reasons: venous insufficiency. [DISCONTINUED] METHYLSULFONYLMETHANE (MSM ORAL) Take 1,200 mg by mouth daily. No current facility-administered medications on file prior to visit. Vital Signs: BP 130/82 (BP Location: Right arm, Patient Position: Sitting) Pulse 81 Ht 6' 4 Wt 127.5 kg (281 lb 1.6 oz) SpO2 97% BMI 34.22 kg/m Physical Exam Labs: I personally reviewed and interpreted the labs documented below. No results found for: CHOL, LDLCALC, LDLDIRECT, TRIG, HDL Creatinine clearance cannot be calculated (Patient's most recent lab result is older than the maximum 14 days allowed.) * Kiesha Deleon MA - 02/06/2020 10:38 AM EDT Review of Systems Constitution: Negative for diaphoresis, malaise/fatigue, weight gain and weight loss. HENT: Negative for hearing loss, nosebleeds and tinnitus. Eyes: Negative for blurred vision and visual disturbance. Cardiovascular: Negative for chest pain, claudication, cyanosis, dyspnea on exertion, irregular heartbeat, leg swelling, near-syncope, orthopnea, palpitations, paroxysmal nocturnal dyspnea and syncope. Respiratory: Negative for hemoptysis, shortness of breath and snoring. Endocrine: Negative for cold intolerance and heat intolerance. Hematologic/Lymphatic: Does not bruise/bleed easily. Skin: Negative for flushing, poor wound healing and rash. Musculoskeletal: Negative for back pain, muscle weakness and myalgias. Gastrointestinal: Negative for abdominal pain, change in bowel habit, melena, nausea and vomiting. Genitourinary: Negative for decreased libido and hematuria. Neurological: Negative for loss of balance and numbness. Psychiatric/Behavioral: Negative for memory loss. The patient is not nervous/anxious. documented in this encounter* Isai Page MD - 03/11/2020 11:28 AM EDT Neurology Consultation Note Isai Page MD [facility] - Neurology [address] [place] [address] (office) / [phone] (fax) Patient Name: Nash Ferguson : 1950 MR #: [id number] Date of Neurology Consult: 03/11/20 Chief Complaint: transient global amnesia Assessment and Plan: Nash Ferguson was seen in consultation at the request of Dr. Mason I agree with the diagnosis. 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 His brain MRI was negative. He is scheduled to have an echocardiogram, with which I also agree. His insights manager scheduled him for a carotid duplex, however because of his multiple cardiovascularrisk factors I have requested an MRA of the head and the neck instead. If this is negative, I do not think that additional neurological work-up or follow-up is needed. Should the vascular imaging disclose significant disease, he may profit from Plavix instead of aspirin. Otherwise, he should continue to work with his PCP regarding long-term goals, which include a blood pressure of less than 135/85, and LDL of less than 70 and a hemoglobin A1c of 6.5% or less. I appreciate the opportunity to evaluate Nash Ferguson. Isai Page MD This note was created with voice recognition software. Grammatical, syntax and spelling errors may be inevitable. The intended meaning may be extrapolated by contextual derivation. History of Present Illness: Nash Ferguson is a 69 y.o. male with has a past medical history of ADD (attention deficit hyperactivity disorder, inattentive type) (2005), Arthralgia (08/10/2018), Depression, Diabetes mellitus ([facility]) (12/21/2016), Generalized OA, Hearing impaired (05/01/2016), Hyperlipidemia, Insomnia, 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) (10/04/2017), Obesity (BMI 35.0-39.9 without comorbidity) (08/24/2016), JAYA (obstructive sleep apnea) (09/05/2018), Osteoarthritis of both hands (08/10/2018), Other longterm (current) drug therapy (08/10/2018), Psoriasis, Psoriatic arthritis ([facility]) (08/10/2018), Sleep apnea (05/01/2016), Varicosities of leg (03/24/2017), Venous insufficiency, and Vitamin D deficiency.. Nash Ferguson was seen in consultation today at the request of Dr. Mason with the specific question of transient global amnesia 01/13/20: he remembers bits and pieces. He apparently took a shower to go to a picnic and he did notremmeber that he out of his clothes. He apparently was unable to recognize his home. During this time he was asking where are we going? 2 or 3 times. He has a vague recollection of events. He apparently was slow getting dressed to go to the ER and by the time he was I the ED things gradually returned back to normal. He denies having weakness, was able to go to the car on his own, no issues talking. Review of Systems: General, respiratory, endocrine, visual, musculoskeletal, neurologic, cardiovascular, gastrointestinal, psychiatric/cognitive, genitourinary, ear nose throat and immunologic systems reviewed. Pertinent positives and negatives noted in HPI, other positives: Weight gain, fatigue, muscle aches, joint pain, muscle weakness, neck pain, headache, tingling, memory problems, diarrhea, depression,problems concentrating, incontinence, bloody urine, urinary infections, hearing loss and seasonal al lergies. All others negative Past Medical, Surgical and Social Hx and current medications reviewed with the patient as noted in the chart Physical Examination: BP 128/84 (BP Location: Left arm, Patient Position: Sitting, BP Cuff Size: Adult) Pulse (!) 105 Ht 6' 4 Wt 127.5 kg (281 lb) BMI 34.20 kg/m General General appearance: well groomed, well developed, NAD Non-dilated fundoscopic exam: deferred owing to social distancing Carotid auscultation: normal bilaterally Heart auscultation: RRR No abnormal sounds Leg edema: No edema B Mental Status Alertness, attention span & concentration: A/Ox 3, normal Language: no aphasia expressive or receptive, no anomia Memory: remote and recent, concentration normal Fund of knowledge: normal Cranial Nerves Visual meek and extraocular movements full, facial sensation and strength normal; hears normally;palate and tongue midline, shoulder shrug normal, unless noted otherwise II - Visual meek: III, IV, : V - Facial sensation: VII Face symmetry & mobility: VIII Hearing: IX, X Palate: XI - Shoulder shrug: XII - Tongue protrusion: Station/gait/Cerebellar Gait, tone, FTN, ANTONIO normal unless noted otherwise Gait & station: Tone: Abnormal movements: none observed Finger-nose & rapid alternating movements: Tremor: no R no L EPS: none Atrophy: intrinsic hand muscles bilaterally Romberg: neg Muscle Strength All muscles listed MRC 5, unless noted otherwise RIGHT LEFT Comment SA EF EE FA FF 5- 5- HF KE KF ADF APF Muscle Stretch Reflexes All MSR's 2, unless noted otherwise MSR RIGHT LEFT Biceps Triceps Brachiorad. Patellar Achilles Babinski - - Sensory Vibration, temperature and light touch normal in upper and lower extremities, unless noted otherwise Upper Extremities Modality RIGHT LEFT Vibration Temperature Light touch Pin prick Lower Extremities Modality RIGHT LEFT Vibration dec dec To shinsto shins Temperature dec dec Light touch Pin prick Reviewed: I independently and personally reviewed labs, Neurology-related imaging and tests pertinent to my specialty that were available at the time of the visit. Labs: Lab Results Component Value Date WBC 7.00 11/30/2018 HGB 14.2 11/30/2018 HCT 43.3 11/30/2018 PLT 275 11/30/2018 ALT 19 11/30/2018 AST 14 11/30/2018 CREATININE 0.70 08/10/2018 BUN 19 10/04/2017 TSH 2.00 01/24/2018 HGBA1C 5.7 08/17/2018 Labs from the PCP reviewed: Date: 01/13/2028 [facility] CBC with differential normal Urinalysis negative Glucose 108 Creatinine 0.78 Sodium, potassium and chloride normal Imaging: Head CT without contrast 01/13/2020 Impression: Normal unenhanced CT of the brain signed by Dr. Honorio Ag MRI of the brain without contrast 01/15/2020 Impression no evidence of acute infarct or hemorrhage signed by Dr. Vicente Anguiano documented in this encounter* Isai Page MD - 04/08/2020 3:00 PM EDT Please let Nash Ferguson know: the MRAs are normal. Copy of the report with this note to the PCP/Ref MD documented in this encounter* Karlee Gupta RN - 06/17/2020 11:[address] Hi called to bedside to evaluate swelling at pain ball catheter insertion site. States to patient and that swelling is due to local injection used during insertion and is WDL. and patient instructed on use of sling ice pack pain ball. taught how to remove pain ball. Instructed on use of sling. Discharge instructions reviewed with patient and verbalize understanding and given paper copy. given demonstration on how to increase pain ball medication. * Monie Lima RN - 06/17/2020 7:24 AM EST Timeout performed prior to regional block procedure. Dr Hi in attendance. documented in this encounter* Mark Mason MD - 09/15/2020 4:36 PM EST Interventional Cardiology Clinic Follow-up Heart & Vascular [facility] 09/10/2020 Mark Mason MD [address] [place] [address] Patient: Nash Ferguson Date of : 1950 (69 y.o.) PCP: Matt Hernandez MD Assessment & Plan No problem-specific Assessment & Plan notes found for this encounter. Follow-up: No follow-ups on file. Chief Complaint: Follow-up (no complaints. no epsiodes of confusion since last OV. ) Subjective History of Present Illness: Nash Ferguson is a 69 y.o. male Objective ECG 12 lead Final Result by Mark Mason MD (12/06/2018 1247) Echocardiogram complete with bubble study Final Result by Viktor Gregory MD (04/23/2020 1646) Review of Systems: The following system(s) were reviewed and negative. Pertinent positive and negative findings are noted in the HPI. [x] Const [x] Eyes [x] ENT [x] Resp [] CV [x] GI [x] [x] Neuro [x] Musc [x] Skin [x] Psych [x] Endo [x] Allergy [x] Heme/Lymph HOME Medications: Current Outpatient Medications on File Prior to Visit Medication Sig ascorbic acid, vitamin C, (vitamin C) 1000 MG tablet Take 1,000 mg by mouth daily . aspirin 81 MG EC tablet Take 81 mg by mouth daily . cholecalciferol, vitamin D3, (VITAMIN D3) 5,000 unit Tab Take 10,000 Units by mouth daily . cyanocobalamin (vitamin B-12) 1000 MCG tablet Take 1,000 mcg by mouth daily . docusate sodium (COLACE) 100 MG capsule Take 200 mg by mouth 2 (two) times a day . lisdexamfetamine (VYVANSE) 70 MG capsule Take 1 (one) capsule (70 mg total) by mouth every morning (Days supply per fill: 30) . losartan (COZAAR) 25 MG tablet TAKE 1 (ONE) TABLET (25 MG TOTAL) BY MOUTH DAILY. lutein 20 mg Tab Take 20 mg by mouth daily . lysine 1,000 mg Tab Take 1,000 mg by mouth daily . metFORMIN (GLUCOPHAGE-XR) 500 MG 24 hr tablet Take 1 (one) tablet (500 mg total) by mouth daily with breakfast . methylcellulose (CITRUCEL, SUCROSE,) oral powder Take by mouth 2 (two) times a day . multivitamin capsule Take 1 capsule by mouth daily. pravastatin (PravachoL) 20 MG tablet Take 1 (one) tablet (20 mg total) by mouth every evening . psyllium (METAMUCIL) 3.4 gram packet Take 1 packet by mouth daily . resveratrol 100 mg cap Take 1 tablet by mouth daily . selenium 200 mcg Tab Take 200 mcg by mouth daily. sertraline (ZOLOFT) 100 MG tablet Take 1 (one) tablet (100 mg total) by mouth daily. zinc 50 mg Tab Take 50 mg by mouth daily. No current facility-administered medications on file prior to visit. Vital Signs: BP 128/78 (BP Location: Left arm, Patient Position: Sitting) Pulse 95 Ht 6' 3 Wt 128.8 kg (284 lb) SpO2 96% BMI 35.50 kg/m Physical Exam Constitutional: He is oriented to person, place, and time. He appears well- developed and well-nourished. Non-toxic appearance. He does not have a sickly appearance. HENT: Head: Normocephalic and atraumatic. Right Ear: Hearing and external ear normal. Left Ear: Hearing and external ear normal. Nose: Nose normal. Eyes: Pupils are equal, round, and reactive to light. Conjunctivae, EOM and lids are normal. Neck: Normal range of motion. Carotid bruit is not present. Cardiovascular: Normal rate, regular rhythm, S1 normal, S2 normal and normal pulses. Murmur heard. Systolic murmur is present with a grade of 1/6. No cyanosis, clubbing or edema Pulmonary/Chest: Effort normal and breath sounds normal. Abdominal: Normal appearance. Musculoskeletal: Normal range of motion. Neurological: He is alert and oriented to person, place, and time. Skin: Skin is warm and dry. Psychiatric: He has a normal mood and affect. His behavior is normal. Judgment and thought content normal. Labs: I personally reviewed and interpreted the labs documented below. No results found for: CHOL, LDLCALC, LDLDIRECT, TRIG, HDL Creatinine clearance cannot be calculated (Patient's most recent lab result is older than the maximum 14 days allowed.) * Kiesha Deleon MA - 09/10/2020 2:11 PM EST Review of Systems Constitution: Negative for diaphoresis, malaise/fatigue, weight gain and weight loss. HENT: Negative for hearing loss, nosebleeds and tinnitus. Eyes: Negative for blurred vision and visual disturbance. Cardiovascular: Negative for chest pain, claudication, cyanosis, dyspnea on exertion, irregular heartbeat, leg swelling, near-syncope, orthopnea, palpitations, paroxysmal nocturnal dyspnea and syncope. Respiratory: Negative for hemoptysis, shortness of breath and snoring. Endocrine: Negative for cold intolerance and heat intolerance. Hematologic/Lymphatic: Does not bruise/bleed easily. Skin: Negative for flushing, poor wound healing and rash. Musculoskeletal: Negative for back pain, muscle weakness and myalgias. Gastrointestinal: Negative for abdominal pain, change in bowel habit, melena, nausea and vomiting. Genitourinary: Negative for decreased libido and hematuria. Neurological: Negative for loss of balance and numbness. Psychiatric/Behavioral: Negative for memory loss. The patient is not nervous/anxious. documented in this encounter* Mark Mason MD - 09/15/2020 4:36 PM EST Interventional Cardiology Clinic Follow-up Heart & Vascular [facility] 09/10/2020 Mark Mason MD [address] [place] [address] Patient: Nash Ferguson Date of : 1950 (69 y.o.) PCP: Matt Hernandez MD Assessment & Plan Sleep apnea History of compliance Hyperlipidemia Continue pravastatin 20 mg daily with a target LDL of less than 100 Newly recognized heart murmur We have ordered an echo to look for cardioembolic issues. It only demonstrated some aortic sclerosis, no significant stenosis or mitral insufficiency Transient confusion He saw neurology who agreed with this diagnosis and felt it was likely related to fatigue and lack of sleep. There is no significant carotid disease. There is no PFO. LV function is normal. Follow-up: Return in about 6 months (around 03/10/2021) for Physician Visit in [place]. Chief Complaint: Follow-up (no complaints. no epsiodes of confusion since last OV. ) Subjective History of Present Illness: Nash Ferguson is a 69 y.o. male who comes in today with his for routine cardiac follow-up. Since I last saw him, he has not had any recurrent issues with memory loss. 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 It was felt to be related to lack of sleep. He has had left wrist surgery and he did well from a cardiac standpoint. Overall, he appears to be doing well from a cardiac standpoint. Objective ECG 12 lead Final Result by Mark Mason MD (12/06/2018 1247) Echocardiogram complete with bubble study Final Result by Viktor Gregory MD (04/23/2020 1646) Review of Systems: The following system(s) were reviewed and negative. Pertinent positive and negative findings are noted in the HPI. [x] Const [x] Eyes [x] ENT [x] Resp [] CV [x] GI [x] [x] Neuro [x] Musc [x] Skin [x] Psych [x] Endo [x] Allergy [x] Heme/Lymph HOME Medications: Current Outpatient Medications on File Prior to Visit Medication Sig ascorbic acid, vitamin C, (vitamin C) 1000 MG tablet Take 1,000 mg by mouth daily . aspirin 81 MG EC tablet Take 81 mg by mouth daily . cholecalciferol, vitamin D3, (VITAMIN D3) 5,000 unit Tab Take 10,000 Units by mouth daily . cyanocobalamin (vitamin B-12) 1000 MCG tablet Take 1,000 mcg by mouth daily . docusate sodium (COLACE) 100 MG capsule Take 200 mg by mouth 2 (two) times a day . lisdexamfetamine (VYVANSE) 70 MG capsule Take 1 (one) capsule (70 mg total) by mouth every morning (Days supply per fill: 30) . losartan (COZAAR) 25 MG tablet TAKE 1 (ONE) TABLET (25 MG TOTAL) BY MOUTH DAILY. lutein 20 mg Tab Take 20 mg by mouth daily . lysine 1,000 mg Tab Take 1,000 mg by mouth daily . metFORMIN (GLUCOPHAGE-XR) 500 MG 24 hr tablet Take 1 (one) tablet (500 mg total) by mouth daily with breakfast . methylcellulose (CITRUCEL, SUCROSE,) oral powder Take by mouth 2 (two) times a day . multivitamin capsule Take 1 capsule by mouth daily. pravastatin (PravachoL) 20 MG tablet Take 1 (one) tablet (20 mg total) by mouth every evening . psyllium (METAMUCIL) 3.4 gram packet Take 1 packet by mouth daily . resveratrol 100 mg cap Take 1 tablet by mouth daily . selenium 200 mcg Tab Take 200 mcg by mouth daily. sertraline (ZOLOFT) 100 MG tablet Take 1 (one) tablet (100 mg total) by mouth daily. zinc 50 mg Tab Take 50 mg by mouth daily. No current facility-administered medications on file prior to visit. Vital Signs: BP 128/78 (BP Location: Left arm, Patient Position: Sitting) Pulse 95 Ht 6' 3 Wt 128.8 kg (284 lb) SpO2 96% BMI 35.50 kg/m Physical Exam Constitutional: He is oriented to person, place, and time. He appears well- developed and well-nourished. Non-toxic appearance. He does not have a sickly appearance. HENT: Head: Normocephalic and atraumatic. Right Ear: Hearing and external ear normal. Left Ear: Hearing and external ear normal. Nose: Nose normal. Eyes: Pupils are equal, round, and reactive to light. Conjunctivae, EOM and lids are normal. Neck: Normal range of motion. Carotid bruit is not present. Cardiovascular: Normal rate, regular rhythm, S1 normal, S2 normal and normal pulses. Murmur heard. Systolic murmur is present with a grade of 1/6. No cyanosis, clubbing or edema Pulmonary/Chest: Effort normal and breath sounds normal. Abdominal: Normal appearance. Musculoskeletal: Normal range of motion. Neurological: He is alert and oriented to person, place, and time. Skin: Skin is warm and dry. Psychiatric: He has a normal mood and affect. His behavior is normal. Judgment and thought content normal. Labs: I personally reviewed and interpreted the labs documented below. No results found for: CHOL, LDLCALC, LDLDIRECT, TRIG, HDL Creatinine clearance cannot be calculated (Patient's most recent lab result is older than the maximum 14 days allowed.) * Kiesha Deleon MA - 09/10/2020 2:11 PM EST Review of Systems Constitution: Negative for diaphoresis, malaise/fatigue, weight gain and weight loss. HENT: Negative for hearing loss, nosebleeds and tinnitus. Eyes: Negative for blurred vision and visual disturbance. Cardiovascular: Negative for chest pain, claudication, cyanosis, dyspnea on exertion, irregular heartbeat, leg swelling, near-syncope, orthopnea, palpitations, paroxysmal nocturnal dyspnea and syncope. Respiratory: Negative for hemoptysis, shortness of breath and snoring. Endocrine: Negative for cold intolerance and heat intolerance. Hematologic/Lymphatic: Does not bruise/bleed easily. Skin: Negative for flushing, poor wound healing and rash. Musculoskeletal: Negative for back pain, muscle weakness and myalgias. Gastrointestinal: Negative for abdominal pain, change in bowel habit, melena, nausea and vomiting. Genitourinary: Negative for decreased libido and hematuria. Neurological: Negative for loss of balance and numbness. Psychiatric/Behavioral: Negative for memory loss. The patient is not nervous/anxious. documented in this encounter Reason for Referral Status Reason Specialty Diagnoses / Procedures Re ferred By Contact Referred To Contact Authorized Cardiology Diagnoses Hyperlipidemia, unspecified hyperlipidemia type Procedures ECG 12 lead Mark Mason MD [address] [place] [address] Status Reason Specialty Diagnoses / Procedures Referred By Contact Referred To Contact Closed Cardiology Diagnoses Newly recognized heart murmur Sarah Loera, [employer] [address] [place] [address] Mark Mason MD [address] [place] [address] Status Reason Specialty Diagnoses / Procedures Referred By Contact Referred To Contact New Request Cardiology Diagnoses 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 Procedures Echocardiogram complete with bubble study Mark Mason MD [address] [place] [address] Status Reason Specialty Diagnoses / Procedures Referred By Contact Referred To Contact Authorized Cardiology Diagnoses Transient global amnesia Transient confusion Procedures Carotid Duplex Mark Mason MD [address] [facility] [address] [place] [address] Status Reason Specialty Diagnoses / Procedures Referred By Contact Referred To Contact Authorized Radiology Diagnoses TGA (transient global amnesia) Procedures MRA Neck With Contrast Isai Page MD [address] [facility] [address] [place] [address] Status Reason Specialty Diagnoses / Procedures Referred By Contact Referred To Contact Authorized Radiology Diagnoses TGA (transient global amnesia) Procedures MRA Brain Without Contrast Isai Page MD [address] [facility] [address] [place] [address] Status Reason Specialty Diagnoses / Procedures Referre d By Contact Referred To Contact Closed Radiology Diagnoses TGA (transient global amnesia) Procedures MRA Neck With Contrast Isai Page MD [address] [facility] [address] [place] [address] Status Reason Specialty Diagnoses / Procedures Referre d By Contact Referred To Contact Closed Radiology Diagnoses TGA (transient global amnesia) Procedures MRA Brain Without Contrast Isai Page MD [address] [facility] [address] [place] [address] Status Reason Specialty Diagnoses / Procedures Referre d By Contact Referred To Contact Closed Cardiology Diagnoses Transient alteration of awareness Transient confusion Procedures Echocardiogram complete with bubble study Mark Mason MD [address] [facility] [address] [place] [address] Discharge Instructions * Instructions* Maria Eugenia Fine RN - 06/10/2020 HOLD ASPIRIN FOR 5 DAYS BEFORE SURGERY HOLD MULTIVITAMINS FOR 5 DAYS BEFORE SURGERY HOLD METFORMIN DAY OF SURGERY ARRIVE 2 HOURS PRIOR TO SURGERY BE AT THE HOSPITAL AT 6:00 am Door number 2 Check in at registration using photo ID and insurance card Have a responsible adult with you that will be able to take you home and will be able to stay with you when you are home. If using public transportation a responsible adult must accompany you NO FOOD AFTER MIDNIGHT THE NIGHT BEFORE SURGERY This includes candy, gum, and mints MAY have CLEAR LIQUIDS (WATER, APPLE JUICE, CRANBERRY JUICE, BLACK COFFEE, TEA, CARBONATED POP GATORADE) To drink until arrival time for surgery Wear loose comfortable clean clothing that you can go home in Leave all jewelry, contact lenses and valuables at home No one under the age of 18 permitted Bring printed medication list with you Write the date and times of last dose DO NOT USE alcohol, recreational drugs or tobacco products for 24 hours before surgery Please write down any questions that you may have for your surgeon, anesthesiologist, Etc. * Attachments The following attachments cannot be sent through Care Everywhere. * Carpal Tunnel Release: Post-op ([place]) * Carpal Tunnel Release: Pre-op ([place]) documented in this encounter* Instructions* Mitch Wing MD - 06/17/2020 Keep wrist bandage on until first follow up appointment OK to remove elbow bandage in 1 week and get elbow wound wet in shower (steri strips can get wet). Must still keep wrist bandage clean and dry Tylenol #3 for pain. OK to add over the counter anti inflammatory medication as well Ice and elevate for pain control - especially in first 3 days after surgery OK to move elbow and fingers Call office with questions or concerns documented in this encounter Chief Complaint CT results and PSA Additional Source Comments Assessment & Plan Note - Matt Hernandez MD - 12/28/2017 12:36 PM EDTAssessment & Plan Note - Matt Hernandez MD - 11/13/2017 5:09 PM EDT Miscellaneous Notes (unrecog nized section and content) Associated Problem(s): OA (osteoarthritis) of knee Will see if we can get better control of pain with a slightly higher dose of the long acting Tramadol.in this encounter Associated Problem(s): Obesity (BMI 35.0-39.9 without comorbidity) Calorie counting is the basis for all weight loss. Typically weigh or measure everything that you place in your mouth. Pay attention to those things that you think are free. Include the calories associated with anything you drink as well. Most that you can buy is required by law to have information on it which breaks down the caloric values for serving size. Look at the serving size and then the weight or measure of that serving size is how you calculate the calories. Try to get over half of your daily calories in the first half of the day Need to find the time for exercise. Activity is great but exercise is activity with a heart rate into the target Zone. Consider calorie counting. But weight loss is minimal without exercise since the body with turn down the BMI or thermostat over time. Exercise allows you to see the benefit of calorie control. Maximum Heart rate or MHR is defined by 220 - age. Then target heart rate or THR is 65-85% of MHR. Need to allow warmup slowly over 5- 10 minute to prevent going too fast to reach THR. Then exercise interval at THR and allow cool down until at least nursing home back to the pre exercise hear rate. Therefor if resting heart rate was 70 and your target heart rate was 120. You need to keep moving and work the muscles until you heart rate is below 95 beats per minute. This reduces cramping and the risk of cardiac irritability post exercise. Most weight loss can be obtained best by cycling your calories. By counting the calories and then setting your intake at the minimum needs to maintain your lean body mass you conventional body not to turn down its basal metabolic rate. 80% or more of your total caloric needs are burned due to your basic metabolic rate. So tell your body that you are are dieting and allowing it to turn down your basal metabolic rate sabotages your ability to lose weight. The way to do this and still lose weight his first start a diet at your minimum needs calculated by year estimated lean body mass. Then the first 4 days of every week set your caloric intake to 300-400 fay per day less. The last 3 days of the week your back to the minimum. This will stop your body from turning down the basal metabolic rate. More than 4 days below the basic minium will have your body trending down how you burn calories. 3500 fay equals 1 pound and 150 fay over 30 days below your needs will result in 1-1/2 pounds per month of weight loss or almost 20 pounds per year. Associated Problem(s): 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) Losartan 25 mg once a day to help protect the kidneys from the effects of diabetes. Associated Problem(s): Low back pain Low back pain consistent with that associated with OA of the iliosacral as well as joint of the lower lumbar region especially L5/S1 Associated Problem(s): Diabetes mellitus (HCC) Recent decision about 3 months ago to forego the Metformin might be contributing to the protein in your urine. However the protein in your urine is a reason to immediately stop the Meloxicam! Tylenol only for pain.in this encounter Associated Problem(s): Attention deficit hyperactivity disorder (ADHD), predominantly inattentive type Inability to take earlier to to the tendency to fade prior to the end of the work day. 3-4 days per week at delay of sleep onset suggest the need to have regular evening exercise to flush the residual out. Cannot increase due to maximum dose. Cannot take earlier or fade will occur more frequently. So need to create a physicologic flush . You are probably having sleep deficiency that is contributing to your fade at this point in time. Still should consider a reduction but would like to see what 30 minutes of evening Target heart rate Of a physiologic flush has upon the symptoms complex..in this encounter Associated Problem(s): OA (osteoarthritis) of knee Completed the review of current standards for chronic pain medication for his knee and hand pain. He was taking an average of 3 per day and tried to get by on the Meloxicam alone and desire to get back on medications. Will continue on PT to improve strength and balance and hopefully delay the joint replacement per Dr. Esparza. If three per day of the short Acting are not enough might consider increase to the Tramadol 200 mg once a day Associated Problem(s): Attention deficit hyperactivity disorder (ADHD), predominantly inattentive type NO change in the Vyvanse but will watch for side effect.in this encounter Associated Problem(s): Dizziness He has some dizziness associated with standing up quickly. I encouraged him to hydrate more aggressively until his urine is clear Associated Problem(s): Newly recognized heart murmur Soft systolic murmur noted, I feel likely this represents aortic sclerosis or perhaps mild aortic stenosis. There are no symptoms or clinical need for echocardiography because there would be no role for any further intervention based on this echo result given his lack of symptoms. Associated Problem(s): Diabetes mellitus (HCC) Continue to be managed by primary care team. I did recommend aspirin 81 mg daily and statin as stated above for target LDL of less than 100 Associated Problem(s): Hyperlipidemia Most recent LDL was 107. I did review with Nash and his that given his diabetes, his LDL should be less than 100. I did [address] him on pravastatin 20 mg daily with plans to repeat labs in 3-6 months Associated Problem(s): Sleep apnea Compliantin this encounter Associated Problem(s): Attention deficit hyperactivity disorder (ADHD), predominantly inattentive type Do not report and issues with difficulties with sleep onset. Your BP is normal on today's visit. If your sleep architecture is allowing you to wake up with less stimulatin due to the medication that might affect you wakefullnes sand cognitive processing during the day. Associated Problem(s): Psoriatic arthritis (HCC) Will relay the information as it Return to the same address of the physician that is managing your care. Associated Problem(s): Abnormal chest x-ray IN order to help define the relationship between the finding and the potential for harm regard to change in medications suggest a PFT with pre and post bronchodilator to help define the treatment option is any indicated. Associated Problem(s): Diabetes mellitus (HCC) Your A1C was 5.7 and would not stop the Metformin unless there is a correlation between being hungry and being less aware or less energetic. in this encounter Associated Problem(s): Attention deficit hyperactivity disorder (ADHD), predominantly inattentive type Will not make no change to the current dose of of the medication. But again suggest that 20 ounces of caffeine are the limit. None After 12 noon as long as adequate fluid. in this encounter Associated Problem(s): Hyperlipidemia I would like you to obtain some fasting blood work. This means that you can not have anything to eat or drink for about 8-10 hours before your blood is drawn. The only thing you are allowed to have before your labs is a glass of water or a cup of BLACK coffee. Thank you. The lab is open here at the office M-F 730am-4pm, you do not need an appointment, just walk in. Associated Problem(s): Diabetes mellitus (HCC) Not checking blood sugars but have had no symptoms of high or low blood sugars. Will recheck your A1C on labs. Associated Problem(s): Attention deficit hyperactivity disorder (ADHD), predominantly inattentive type Doing well on the Vyvanse at this time. No side effects. Patient is followed every 6 months by cardiology. Associated Problem(s): Body mass index (BMI) of 33.0 to 33.9 in adult Eat meat, vegetables, nuts and seeds, some fruit, very little starch and absolutely no sugar. If you can grow it or kill it, then that's what you should be eating..... Chicken, turkey, fish pork, beef, ALL vegetables and fruit. If it is processed or you can not pronounce the ingredients, do not eat it! Shop the outside perimeter of the grocery store. Listen to your body, if you are hungry all the time you may need to increase your intake of healthy veggies and small healthy snacks. Eat whole, healthy foods and you won't need to count calories. Increase your activity level; the more you move your body the healthier you will be and the better you will feel! Diet and Exercise is not a fad, it really works! documented in this encounter Associated Problem(s): Newly recognized heart murmur Fairly faint systolic murmur, no symptoms to warrant further evaluation. We reviewed that this is likely related to age-related changes Associated Problem(s): Body mass index (BMI) of 33.0 to 33.9 in adult Compliant Associated Problem(s): Hyperlipidemia Currently taking pravastatin 20 mg daily with target LDL of 70-100 given history of diabetes. He is tolerating it without difficulties and we reviewed benefits of plaque stabilization documented in this encounter Associated Problem(s): Transient confusion He saw neurology who agreed with this diagnosis and felt it was likely related to fatigue and lack of sleep. There is no significant carotid disease. There is no PFO. LV function is normal. Associated Problem(s): Newly recognized heart murmur We have ordered an echo to look for cardioembolic issues. It only demonstrated some aortic sclerosis, no significant stenosis or mitral insufficiency Associated Problem(s): Hyperlipidemia Continue pravastatin 20 mg daily with a target LDL of less than 100 Associated Problem(s): Sleep apnea History of compliance documented in this encounter (unrecognized sect ion and content) No Status Records FoundNo Status Records FoundNo Status Records FoundNo Status Records FoundNo Status Records FoundNo Status Records FoundNo Status Records FoundNo Status Records FoundNo Status Records FoundNo Status Records FoundNo Status Records Found INFORMATION SOURCE (unrecogn ized section and content) DATE CREATED AUTHOR AUTHOR'S ORGANIZ ATION 01/25/2018 [facility] DATE CREATED AUTHOR AUTHOR'S ORGANIZ ATION 02/05/2019 [facility] DATE CREATED AUTHOR AUTHOR'S ORGANIZ ATION 04/25/2020 [facility] DATE CREATED AUTHOR AUTHOR'S ORGANIZ ATION 09/03/2020 [facility] DATE CREATED AUTHOR AUTHOR'S ORGANIZ ATION 07/26/2021 [facility] ([place]) DATE CREATED AUTHOR AUTHOR'S ORGANIZ ATION 08/03/2021 [facility] DATE CREATED AUTHOR AUTHOR'S ORGANIZ ATION 02/23/2022 [facility] DATE CREATED AUTHOR AUTHOR'S ORGANIZ ATION 04/10/2022 [facility] DATE CREATED AUTHOR AUTHOR'S ORGANIZ ATION 11/20/2022 [facility] DATE CREATED AUTHOR AUTHOR'S ORGANIZ ATION 06/02/2023 [facility] ([place]) Reason for Visit (unrecogniz ed section and content) Reason Comments Establish Care heart murmur, referr ed by Sarah Vazquez CNP. Pt states he was diagnosed with RBBB years ago. Last cardiac tests completed 10+ years ago. Status Reason Specialty Diagnoses / Procedures Referred By Contact Referred To Contact Closed Cardiology Diagnoses Newly recognized heart murmur Sarah Loera PATRON ATTENDANT [address] [place] [address] Mark Mason MD [address] [facility] [place] [address] Reason Comments COPD Medication Refill Tramadol, Vyvanse, T riamcinolone cream Diabetes Reason Comments PFT results ADHD Reason Comments ADHD Medication Refill vyvanse and tramadol Reason Comments Follow-up pt denies any cardia c concerns for todays visit Reason Comments Annual Exam s/p d/c WC for conf usion. work up unremarkable Reason Comments transient global amnesia Status Reason Specialty Diagnoses / Procedures Referred By Contact Referred To Contact Closed Specialty Services Required/Patient' s Best Interest Neurology Diagnoses TGA (transient global amnesia) Mark Mason MD [address] [place] [address] Isai Page MD [address] [facility] [address] [place] [address] Status Reason Specialty Diagnoses / Procedures Referre d By Contact Referred To Contact Closed Radiology Diagnoses TGA (transient global amnesia) Procedures MRA Neck With Contrast Isai Page MD [address] [facility] [address] [place] [address] Status Reason Specialty Diagnoses / Procedures Referre d By Contact Referred To Contact Closed Radiology Diagnoses TGA (transient global amnesia) Procedures MRA Brain Without Contrast Isai Page MD [address] [place] [address] Status Reason Specialty Diagnoses / Procedures Referre d By Contact Referred To Contact Closed Cardiology Diagnoses Transient alteration of awareness Transient confusion Procedures Echocardiogram complete with bubble study Mark Mason MD [address] [place] [address] Reason Comments Follow-up no complaints. no ep siodes of confusion since last OV. Reason Comments Medication Refill Pravastatin Reason Comments Follow-up 6 months f/u without medication list/bottles Reason Comments Medication Refill Care Teams (unrecognized sec tion and content) Circulation Assistant Relationship Specialty Start Date End Date SpringSarah PATRON ATTENDANT PCP - General Nurse Practitioner 11/07/18 02/21/19 Matt Hernandez MD PCP - General Family Medicine 02/22/19 01/08/20 System, Provider Not In PCP - General 07/01/21 Mark Mason MD Consulting Physician Cardiology 03/11/20 Circulation Assistant Relationship Specialty Start Date End Date Matt Hernandez MD PCP - General Family Medicine 05/01/16 11/06/18 Sarah Loera PATRON ATTENDANT PCP - General Nurse Practitioner 11/07/18 02/21/19 Matt Hernandez MD PCP - General Family Medicine 02/22/19 01/08/20 System, Provider Not In PCP - General 07/01/21 Mark Mason MD Consulting Physician Cardiology 03/11/20 Care Team (unrecognized sect ion and content) Care Team Personnel Name: MARTA RIDDLE Position: P4 Advanced Practice Nurse Member Role: Primary Care Physician Address: Address: [address] [place] [address]- Care Team Related Persons Name: CHE FERGUSON Address: Home [address] [place], [place] [id number] [place] Name: CHE ESCOBAR Care Team Personnel Name: MARTA RIDDLE Position: P4 Advanced Practice Nurse Med Service: Active Provider Member Role: Primary Care Physician Address: Address: [address] [place] [address] Care Team Related Persons Name: CHE FERGUSON Address: Home [address] [place], [place] [id number] [place] Name: CHE ESCOBAR Care Team Personnel Name: MARTA RIDDLE Position: P4 Advanced Practice Nurse Med Service: Active Provider Member Role: Primary Care Physician Address: Address: [address] [place] [address]- Care Team Related Persons Name: CHE FERGUSON Address: Home [address] [place] [phone] [place] Name: CHE ESCOBAR Care Team Personnel Name: MARTA RIDDLE Position: P4 Advanced Practice Nurse Med Service: Active Provider Member Role: Primary Care Physician Address: Address: [address] [place] [address] Care Team Related Persons Name: CHE FERGUSON Address: Home [address] [place], [place] [id number] [place] Name: CHE ESCOBAR Care Team Personnel Name: LETTY ZAVALETAPATRON ATTENDANT Position: P4 Advanced Practice Nurse Member Role: Primary Care Physician Address: Address: [address] [place], [place] [address] Care Team Related Persons Name: CHE FERGUSON Address: Home [address] [place], [place] [id number] [place] Name: CHE ESCOBAR FOR RECORDS PERTAINING TO PATIENTS WHO ARE OR HAVE BEEN ENROLLED IN A CHEMICAL DEPENDENCY/SUBSTANCEABUSE PROGRAM, SOME INFORMATION MAY BE OMITTED. This clinical summary was aggregated from multiple sources. Caution should be exercised in using it in the provision of clinical care. This summary normalizes information from multiple sources, and as a consequence, information in this document may materially change the coding, format and clinical context of patient data. In addition, data may be omitted in some cases. CLINICAL DECISIONS SHOULD BE BASED ON THE PRIMARY CLINICAL RECORDS. [facility]. provides no warranty or guarantee of the accuracy or completeness of information in this document.
== END | disposition home or self-care (01) ==
LOC: SL 11:55
PROVIDERS: PCP Registered Nurse; Visit Provider Nurse Practitioner Acute Care
DX: Z00.00 Encounter for general adult medical examination without abnormal findings (principal)

== ENCOUNTER → 2024-01-02 | Outpatient (CLI) | payer MEDICARE, OTHER, SELFPAY ==
--- NOTE | 2024-01-02 14:00 | ECHOCS_ITS ---
Version 2 Reason For Study: Aortic Stenosis Procedure This was a 2D Doppler, Color Flow transthoracic echocardiogram. The study was technically difficult. Contrast injection was performed. Exam performed in department. Left Ventricle Normal LV size. Left ventricular systolic function is normal. The left ventricular ejection fraction is 65 %. Stage 1 diastolic dysfunction. No regional wall motion abnormalities noted. Right Ventricle Normal RV size. Normal systolic function. Atria The left atrium is mildly enlarged. Normal right atrium. Tricuspid Valve Normal tricuspid valve. Mild (1+) tricuspid valve insufficiency. Aortic Valve Trisinus/trileaflet aortic valve. Mild diffuse aortic valve thickening. Peak aortic valve gradient 26 mmHg. Mean aortic valve gradient 13 mmHg. Mild aortic stenosis. Pulmonic Valve The pulmonic valve is not well visualized. Great Vessels Normal aortic root. The pulmonary artery is normal size. Normal inferior vena cava. Pericardium/Pleural No pericardial effusion. Medication 22 gauge I.V. with prn adaptor inserted into right arm. Diluted definity 2.5ml given slow IV push to enhance endocardial definition. MMode/2D Measurements & Calculations LVIDd: 4.8 cm IVSd: 0.96 cm LVOT diam: 2.0 cm LVIDs: 3.0 cm LVPWd: 1.2 cm LVOT area: 3.3 cm2 RVDd: 4.3 cm FS: 36.2 % Ao root diam: 3.4 cm LAV(MOD-bp): 73.9 ml LVAd ap4: 36.3 cm2 LA dimension: 4.1 cm LAV(MOD-bp) Indexed: 29.4 ml/m2 LVLd ap4: 8.6 cm LAV(MOD-sp2): 69.6 ml EDV(MOD-sp4): 122.4 ml LAV(MOD-sp4): 70.9 ml EDV(sp4-el): 130.4 ml LVAs ap4: 19.2 cm2 LVLs ap4: 6.9 cm ESV(MOD-sp4): 46.0 ml ESV(sp4-el): 45.4 ml EF(MOD-sp4): 62.5 % EF(sp4-el): 65.2 % SV(MOD-sp4): 76.5 ml SV(sp4-el): 85.0 ml Aortic Valve Planimetry: 1.7 cm2 LA A4 area: 23.7 cm2 RA A4 area: 20.8 cm2 TAPSE: 2.2 cm Time Measurements MV dec time: 0.26 sec Doppler Measurements & Calculations MV E max thang: 107.3 cm/sec Lat Peak E' Thang: 6.1 cm/sec Med Peak E' Thang: 8.1 cm/sec MV A max thang: 111.5 cm/sec E/E' lat: 17.6 E/E' med: 13.3 MV E/A: 0.96 MV V2 max: 130.1 cm/sec MV P1/2t max thang: 130.1 cm/sec Ao V2 max: 255.0 cm/sec MV max P.8 mmHg MV P1/2t: 91.1 msec Ao max P.1 mmHg MV V2 mean: 81.2 cm/sec Ao V2 mean: 164.4 cm/sec MV mean P.0 mmHg MV dec slope: 418.2 cm/sec2 Ao mean P.7 mmHg MV V2 VTI: 35.1 cm MVA(P1/2t): 2.4 cm2 Ao V2 VTI: 47.7 cm AV (velocity ratio): 0.61 MVA(VTI): 2.7 cm2 ANITA(I,D): 2.0 cm2 ANITA(V,D): 1.7 cm2 LV V1 max: 132.2 cm/sec MR max thang: 433.9 cm/sec SV(LVOT): 95.0 ml LV V1 max P.0 mmHg MR max P.3 mmHg LV V1 mean P.4 mmHg LV V1 mean: 99.6 cm/sec LV V1 VTI: 29.0 cm PA V2 max: 137.5 cm/sec TR max thang: 270.0 cm/sec PA max PG (full): 5.4 mmHg TR max P.2 mmHg PA V2 mean: 97.9 cm/sec PA mean PG (full): 3.2 mmHg ECHO/Echo Complete W/ Contrast Interpretation Summary Normal LV size. Left ventricular systolic function is normal. The left ventricular ejection fraction is 65 %. The left atrium is mildly enlarged. Stage 1 diastolic dysfunction. Mild (1+) tricuspid valve insufficiency. Mean aortic valve gradient 13 mmHg. Mild diffuse aortic valve thickening. Mild aortic stenosis. Contrast injection was performed. Ordering Physician: Nils Rodriguez Referring Physician: Nils Rodriguez Performed By: Anderson Webster RCS
== END | disposition home or self-care (01) ==
LOC: CVS 13:57
PROVIDERS: PCP Registered Nurse; Referring Provider Nurse Practitioner Family; Visit Provider Nurse Practitioner Family
DX: I35.0 Nonrheumatic aortic (valve) stenosis (principal)
CPT/HCPCS: 93306; Q9957; A4216; C8929

== ENCOUNTER → 2024-11-06 | Outpatient (CLI) | payer MEDICARE, BC, OTHER, SELFPAY | END | disposition home or self-care (01) | LOC: SL 13:26 | PROVIDERS: PCP Registered Nurse; Referring Provider Nurse Practitioner Acute Care; Visit Provider Nurse Practitioner Acute Care | DX: G47.33 Obstructive sleep apnea (adult) (pediatric) (principal) | CPT/HCPCS: 98960; G0463 ==

== ENCOUNTER → 2025-05-14 | Outpatient (CLI) | payer MEDICARE, OTHER, SELFPAY ==
--- NOTE | 2025-05-14 16:40 | MRI_ITS ---
PROCEDURE: MRI BRAIN WITHOUT CONTRAST 05/14/2025 REASON FOR EXAM: STROKE TECHNIQUE: Procedure Code: MRIBR Modality: MR Procedure: BRAIN WITHOUT CONTRAST Multiplanar and multisequential MRI of the brain was performed without contrast. COMPARISON: None available. FINDINGS: Small foci of diffusion restriction compatible with acute-subacute infarcts in the posterolateral left thalamus, and the left parieto-occipital peritrigonal white matter. No large territorial infarct. 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 Mild chronic microangiopathic changes elsewhere in the supratentorial white matter. Mild age-appropriate generalized brain parenchymal volume loss. Normal ventricular caliber. Major intracranial vascular flow voids appear preserved. No evidence of acute intracranial hemorrhage, extra- axial collection, or mass-effect. Unremarkable orbits. Well-aerated paranasal sinuses and mastoid air cells. MRI/Brain without Contrast IMPRESSION: Small foci of acute-subacute lacunar infarcts involving the left thalamus and l eft parieto-occipital peritrigonal white matter. Chronic left occipital lobe infarct. No intracranial hemorrhage or mass-effect. Reading Location: [id number]
== END | disposition home or self-care (01) ==
LOC: MRI 16:16
PROVIDERS: PCP Student in an Organized Health Care Education/Training Program
DX: I63.9 Cerebral infarction, unspecified (principal)
CPT/HCPCS: 70551

== ENCOUNTER 2025-06-18 14:30 | Outpatient (RCR) | payer MEDICARE, OTHER, SELFPAY ==
--- NOTE | 2025-04-19 09:06 | HP.SP.EVAL ---
Visit History Visit Info Date of Eval: 04/18/25 Today is Visit #: 1 Personal Financial Advisor: ERIC Zamarripa Attending Doctor: Referring Doctor: Reason for Referral: CVA Previous speech therapy: No Other Relevant Medical History/Diagnoses/Surgery: NASH FERGUSON (BOB) presents to [facility] Speech Therapy following a diagnosis of CVA. Byron arrived to [facility] with his , Dottie, who did not participate in the evaluation. Byron was the historian when ST obtained case history. Byron was recently d/c from hospital on 04/13/25 and was admitted for 2 days. He stated that his CVA occurred at [facility] on 04/11/25 with his and daughter and he was life lifted to the hospital. He reported memory loss when he was in the hospital and exhibited poor memory prior to CVA that has recently worsened. He was not treated at [facility], so CT was unavailable to review. Byron mentioned that his doctor revealed he had a previous stroke when looking at the most recent MRI. Byron reported recent right side visual deficits, excessive fatigue, unsteadiness, word finding difficulty, worsening memory loss, and easily getting lost. He also mentioned that his attention is unimpaired, but later noted that he has a hard time focusing. ST observed that Byron was wearing a hearing aid in right ear. His , Dottie (Brayden,) has been helping him manage his medications everyday. He did not bring his updated medication list to the evaluation and claimed that his knows them. Byron also noted difficulty balancing finances as of recently and needing assistance from his and neighbor when attempting to pay a credit card bill. His doctor declared he cannot drive for [address] discussed potentially scheduling a driving evaluation in the future if his visual deficits improve. Byron expressed that his reading, writing, and spelling skills have declined after his CVA. He also revealed that he's experiencing executive functioning deficits related to maintaining a daily routine. Byron disclosed that a few days ago, he accomplished nothing on his daily schedule and wore his gym clothes all day. He mentioned that he had a daily routine before the CVA which has changed significantly. He is currently unable to help around the house as much as he would like, especially since his had multiple surgeries and needs his assistance. Byron also noted a difference in cognitive skills and word finding ability after his hip and knee surgeries. Prior to admission, Byron could do everyday day tasks independently and took care of his while she was recovering from surgery. 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 His hobbies include walking with his dog (Rock Lay), fossil hunting, and swimming. 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 He expressed his interest in cognitive therapy to improve his quality of life and independence. Smoking Status: Never smoker Diagnosis Diagnosis: Mild Cognitive-Linguistic Dysfunction Pain Is pain an issue with your current prescribed condition?: No Personal Preferred language: Lao Patient Allergies Allergies Allergies: Allergies etanercept (From Enbrel) Allergy (Verified 12/18/24 15:41) Rash methylprednisolone Allergy (Verified 12/18/24 15:41) Rash rivaroxaban (From Xarelto) Adverse Reaction (Intermediate, Verified 12/18/24 15:41) Rash cephalexin (From Keflex) Adverse Reaction (Mild, Verified 12/18/24 15:41) Rash clindamycin Adverse Reaction (Mild, Verified 12/18/24 15:41) GI upset CLQT CLQT CLQT Administered: Yes CLQT: Cognitive Linguistic Quick Test (CLQT) is a criterion - referenced assessment designed for adults between the ages of 18 and 89 with known or suspected neurological dysfuntions. The CLQT is to assess strength and weaknesses in five cognitive domains. Severity ratings are within normal limits, mild, moderate, severe deficits. The subtests are as follows: Date: 04/18/25 Attention Attention: Mild Memory Memory: WN Executive Functions Executive Functions: Mild Language Language: Mild Visuospatial Skills Visuospatial Skills: WNL Composite Severity Rating Composite Severity Rating: Mild Clock Drawing Severity Rating Clock Drawing Severity Rating: WNL CLQT Comments Cognitive Domain Scores:: -: Cognitive Domain Scores: -: Results of the CLQT are as follows: Cognitive Domain Scores • Personal Facts (memory and language ability): 03/08 (WITHIN CRITERION CUT OFF) • Symbol Cancellation (nonlinguistic task of visual attention and perception, integrity of the upper/lower quadrants of the left/right visual meek): 06/12 (WITHIN CRITERION CUT OFF - NO ORGANIZATION WHEN SCANNING PAGE) • Confrontation Naming (aphasia, perseveration, verbosity): 05/10 (WITHIN CRITERION CUT OFF) • Clock Drawing (screening of all cognitive domains): 07/13 (WITHIN CRITERION CUT OFF - PERSEVERATED 1x AND SELF CORRECTED, ARMS OF CLOCK NOT CENTERED) • Story Retelling (memory and comprehension, arousal, attention, storage capacity, narrative skills): 12/08 (WITHIN CRITERION) • Symbol Trails (nonlinguistic task to assess planning, self-monitoring, working memory, and visual attention, and impulsivity): 02/07 (WITHIN CRITERION CUT OFF - SELF CORRECTED AND STARTED OVER WITH RED PEN) • Generative Naming (word retrieval skills, perseveration): 11/07 (WITHIN CRITERION) • Design Memory (nonlinguistic task to assess visual discrimination & analysis, attention, and visual memory, impulsivity, perseveration): 01/04 (WITHIN CRITERION CUT OFF) • Mazes (planning, mental flexibility, self-monitoring, visual discrimination, and impulsivity): 0/ (BELOW CRITERION CUT OFF) • Design Generation (nonlinguistic task of creativity and mental flexibility): 01/11 (WITHIN CRITERION CUT OFF) Severity Rating Domain Scores: Attention = 148/215 (MILD) Memory = 150/185 (WNL) Executive Functioning = 17/40 (MILD) Language = 27/37 (MILD) Visuospatial Skills = 66/105 (WNL) Clock Drawing = 07/13 (WNL). At times, Pt showing signs of inattentiveness right before beginning task immediately after examiner provided verbal directions. Pt frequently asked examiner to repeat instructions for task and would impulsively complete task as fast as he could if he knew there was a time limit. Throughout evaluation, Pt strayed from the topic and attempted to converse with examiner during written tasks. Reference: Neuro-QoL instrument In past 7 days I had to read something several times to understand it: Sometimes (2-3 times) My thinking was slow: Sometimes (2-3 times) I had to work really hard to pay attention or i would make a mistake: Often (once a day) I had trouble concentrating: Often (once a day) How much DIFFICULTY do you currently reading & following complex instructions (e.g. directions for new medication: Somewhat planning for & keeping appts that are not part of weekly routine: Somewhat managing your time to do most of your daily activities: Somewhat learning new tasks or instructions: Somewhat Neuro-QOL Score Raw Score: 22 T - Score: 37.0 Radiation Oncology Patient Other Other Informal Observations: -: While obtaining case history, ST observed Nash consistently straying from the topic and forgetting what question was asked. He asked where he was 3x and thought he was in OT at the beginning. He also forgot both STs names and asked 2-3x throughout session. Plan Plan Plan: Will recommend Pt for weekly outpatient speech therapy to address mild cognitive-linguistic impairment characterized by deficits in immediate and short-term memory, word retrieval, executive functioning, attention, problem solving/reasoning, and safety awareness. Pt would benefit from training in compensatory strategies for recall and word retrieval, as well as cognitive training to improve cognitive functioning. Without skilled ST services, the Pt is at risk for decreased independence completing daily living tasks. *Evaluation was completed by student activities director, Carley Parker, but was observed, reviewed, and approved by operations supervisor chemical cleaning, Cait Neri MS, CCC-PERSONAL FINANCIAL ADVISOR. Recommendations Treatment Warranted: Yes Treatment Warranted: Receptive/ Expressive Language and Cognition Progress Prognosis: Good Frequency Frequency: 1x/Week Duration: 8 weeks Patient/Family Goal Patient/Family Goal: To improve cognitive-linguistic function and increase Pt's independence. Goals that are Established Determination:: Goals will be added/modified as deemed necessary and appropriate. Therapy will be discontinued when results of re-evaluation indicate therapy is no longer needed or lack of progress has been documented. Goal #1-5 Goal #1: Nash will independently complete complex problem solving, reasoning, and executive function tasks including but not limited to functional ADL (i.e., managing finances, safety awareness, paying bills, medication management, meal planning, using cellphone) with 80% acc across 3 measured opportunities. Goal #2: Nash will complete basic to mod complex sustained, alternating, divided attention tasks with 80% acc independently across 3 measured opportunities. Goal #3: Nash will utilize word finding strategies in conversation and structured language tasks 80% of the time independently across 3 measured opportunities. Goal #4: Nash will modify environment at home via implementing internal and external memory compensatory strategies within 8 weeks time of his initial evaluation. Education Patient Instruction Patient Education: Diagnosis, Treatment Plan and Goals Person Taught: Patient Teaching Method: Discussion Response to teaching: Verbalize Understanding
--- NOTE | 2025-04-23 07:44 | HP.OTEVAL_ITS ---
Patient's Visit Information Visit Information Visit Information: NASH FERGUSON is a 74 year old M, referred to Occupational Therapy by Dr. Abby Alonso DO, with a diagnosis of CVA. Date of Evaluation: 04/22/25 Occupational Therapist: HELDER Valera/Chandrika, CHT Subjective Subjective: This 74 year old male was seen for OT eval dx of CVA. States this happened on 04/11/25. Pt states his right side went numb and he could not move his right side. pt states he went to the hospital. pt states now his vison is compromised from his stroke and feels like his right dominate hand does not move the way it should- this makes grooming tasks and daily tasks more difficult. pt would like to return to using his right dominate hand at his PLOF. 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 Left: 25.97 sec. In-Hand Manipulation Finger to Palm Translation: Moderate - Right and Normal - Left Palm to Finger Translation: Moderate - Right and Normal - Left Stroke Specific Quality of Life Total SS-QOL Score: 194 Goals Goal:: pt will demo a improved 9-hole peg test by decreasing speed by 10 sec. demo increase in pts FMS by d.c pt will report IND grooming without compensation by d/c pt will demo the ability to write legibly within line boundaries by dja Goal:: pt will demo the ability to visually scan environment to decrease running into objects-oneill or doorways by d/c Goal:: pt will demo IND scan to right side to improve awareness of right side of body by jazmine Rehabilitation General Assessment: pt demo with decrease in right UE strength and FM coordination limiting his IND with ADls and IADls. pt would benefit from skilled OT services 2-3x week for 6 weeks to assist pt in reaching his maximal rehab potential. Today therapist ed. pt on POC based on insurance approval pt demo understanding and agreed to POC. Rehabilitation Potential: Good Anticipated Interventions Anticipated Interventions: A/AAROM/PROM, Strengthening, Fine Motor Coord/Rebel, Neuro Reeducation, Visual/Perceptual Skills, ADL Training, Education re assistive Equipment, Education re Diagnosis, Caregiver Training and Home Program Visit Plan Frequency: 1-2x /Week Duration: 6 Weeks General Plan: visual scanning of environment FMS writing manipulation of coins right UE motor control TEXT: Thank you for the opportunity to evaluate your patient. For Medicare and Medicare HMO plans, please review the plan of care and approve it. It will need to be FAXED BACK to us at [phone] for Medicare purposes. Please let me know if there are questions or concerns regarding this plan of care. Physician Signature: Date:
--- NOTE | 2025-05-07 13:53 | HP.PTEVAL_ITS ---
Patient's Visit Information Visit Information Visit Information: NASH FERGUSON is a 74 year old M referred to Physical Therapy by Dr. Abby Alonso DO with a diagnosis of CVA. Date of Evaluation: 04/24/25 Physical Therapist: Tello St DPT Visit Plan Frequency: 1-2x /Week Duration: 2 Months Plan: Dynamic balance, high level balance activities. Subjective Subjective: Pt. is here today for his initial evaluation with diagnosis of CVA, embolism DOI: 04/11/25. Pt. reports having a R sided visual cut. He is also having some difficulty with word finding and describing activities. Pt. reports having issues with the right side of his body. Pt. is now back at home. Pt. reports having some difficulties, but mostly due to visual. Pt. reports no dizziness, no N/T. No falls since being home. Pt. reports he was using a cane, does not feel like he needs it. He did have a L wrist carpectomy which makes it difficulty to use. Pt. is hopeful to get back to all recreational walking and activities without limitations. Objective Objective: POSTURE: Pt. has fairly normal posture in stance. PALPATION: No issues. NEURO: Normal throughout BLEs. ROM: PT. has normal ROM throughout. Slight bilateral HS tightness. MMT: no myotomal weakness. 5/5 throughout. TU.8sec no AD FGA 22/30 STAIRS: Pt. was able to complete with recripocal pattern with 1 HR without LOB Balance/Special Test Scores Lower Extremity Functional Score: 62 30 Second Chair Rise Test Seconds: 14 Goals Goal 1:: LTG: Pt. to have TUG under 10seconds. Goal Time Frame: 2-4 Weeks Goal 2:: LTG: Pt. to negotiate stairs with no HR with reciprocal pattern. Goal Time Frame: 2-4 Weeks Goal 3:: LTG: Pt. to have score of 30/30 on FGA indicating improved balance. Goal Time Frame: 4-6 Weeks Rehabilitation Potential Physical Therapy Diagnosis: Pt. has signs and symptoms consistent with CVA. He has some slight imbalance, but is overall doing well. He has a R sided visual neglect as well limiting some of his stability. Rehabilitation Potential: Excellent Anticipated Interventions Patient/Client Instruction: Educate patient on: Condition, Plan of Care, Risk Factors and Benefits of Fitness Program For the Purpose of:: To foster healthy habits, To improve decision making, To facilitate caregiver knowledge and To improve self management Therapeutic Exercise to Include: Strength training, Endurance training and Balance training For the Purpose of:: To improve gait and locomotor functions, To improve health of tissue, To decrease soft tissue restriction, To increase flexibility/ROM, To improve endurance and To improve balance Text: Thank you for the opportunity to evaluate your patient. For Medicare and Medicare HMO plans, please review the plan of care and approve it. It will need to be FAXED BACK to us at [phone] for Medicare purposes. For Medicare only, by signing this I certify the plan of care. Please let me know if there are questions or concerns regarding this plan of care. Physician Signature:_ Date:
--- NOTE | 2025-06-03 15:04 | HP.PTDCSUM ---
Discharge Summary D/C summary: It has been my pleasure to treat NASH FERGUSON referred by Dr. Abby Alonso DO, with the diagnosis of CVA for a total of 6 visit(s). Discharge Date: 06/03/25 Please see the following information for a summary of their discharge status. Subjective Subjective: Pt. reports overall doing very well. No major issues. Pt. pleased with progress. He reports being 90% better overall. Overall Improvement % Improvement: 90 Objective Objective/Function: Pt. is overall doing much better. He did great on the TUG, 6 min walk test and with stair negotiation Pt. negotiated 1 flight without HR without issues. GAIT: normal no issues noted. He is to continue with walking his dog and exercises x3 days per week. Pt. consents. Overall he is doing much better. pt. will be DC from PT at this point in time. Goals Goal 1:: LTG: Pt. to have TUG under 10seconds. Goal Progress: Goal Met Goal 2:: LTG: Pt. to negotiate stairs with no HR with reciprocal pattern. Goal Progress: Goal Met Goal 3:: LTG: Pt. to have score of 30/30 on FGA indicating improved balance. Goal Progress: Goal Met Plan Plan: Pt. has met all goals and will be DC from PT this date. D/C Information d/c sentence: If there are questions or concerns regarding this patient's physical therapy, please feel free to call me at [phone]. Thank you for the referral of this patient. Sincerely, Tello St, DPT Balance/Gait/Functional tests Balance/Special Test Scores Functional Gait Assessment Score: 30 % Disability: 0 Lower Extremity Functional Score: 67 TUG Test Time Seconds: 6.68 Tug Test: <10 sec.=free mobile 30 Second Chair Rise Test Seconds: 13 6 Minute Walk Test: 1632 feet. Improvement % Improvement: 90
--- NOTE | 2025-06-13 14:46 | HP.OTDCSUM ---
Discharge Summary D/C Summary: It has been my pleasure to treat NASH FERGUSON under orders from Dr. Abby Alonso DO, for the diagnosis of CVA for a total of 9 visit(s). Please see the following information for a summary of their discharge status. Overall Improvement % Improvement: 75 Objective Objective/Function: 9 hole peg assessment R hand 25 sec L hand 23 sec pt is I in grooming tasks no longer running into objects on R side Goals Patient Goals: Improve Fine Motor Skills, Use Hand/Wrist/Arm Normally Again, Be More Independent in ADLS and Improve Visual/Perceptual Skills Goal:: pt will demo a improved 9-hole peg test by decreasing speed by 10 sec. demo increase in pts FMS by d.c improvement noted not met pt will report IND grooming without compensation by d/c goal met pt will demo the ability to write legibly within line boundaries by d.c goal met Goal:: pt will demo the ability to visually scan environment to decrease running into objects-oneill or doorways by d/c goal met Goal:: pt will demo IND scan to right side to improve awareness of right side of body by d.c goal met Plan Plan: Continue POC: 6 weeks (1-2x wk) dropping to 1x a week D/C Information Discharge Comments: This 74 year old male arrives with dx of CVA. Pt with progress throughout POC in visual scanning abilities as well as fine motor control. pt is now I in all self care abilities and denies running into objects on R side. Ed provided on activities to perform at home for ongoing progression. pt in agreeance discharge from OT services at this time. d/c sentence: If there are questions or concerns regarding this patient's occupational therapy, please fell free to call me at [phone]. Thank you for the referral of this patient. Sincerely, Radha Washington
--- NOTE | 2025-06-19 10:16 | HP.SP.DC ---
ST Discharge Summary Discharged: Discharge: Devang Cash (Bob) is a 74 year old male who was seen for initial cognitive linguistic evaluation at [facility] on 04/18/25 s/p CVA. Pt attended 8 additional sessions following initial evaluation to target attention, word retrieval, problem solving/reasoning, memory, and executive functioning. Following re-evaluation of Pt’s current level of cognitive function and self-report, Pt deemed appropriate for d/c from speech therapy at this time. Pt provided w/home carry over activities and compensatory strategies to continue targeting word retrieval and memory. Pt discharged from speech therapy caseload on this date, 06/19/2025. Thank you for allowing me to participate in the care of your Pt. Will reevaluate at Pt’s request following script from physician.
== END 2025-06-18 19:00 | disposition home or self-care (01) ==
LOC: SP 14:30
PROVIDERS: PCP Registered Nurse; Referring Provider Student in an Organized Health Care Education/Training Program; Visit Provider Student in an Organized Health Care Education/Training Program
DX: Z86.73 Personal history of transient ischemic attack (TIA), and cerebral infarction without residual deficits (principal); G31.84 Mild cognitive impairment of uncertain or unknown etiology; F80.2 Mixed receptive-expressive language disorder
CPT/HCPCS: 92507; 97110; 97112; 97129; 97130; 97161; 97167; 97530

== ENCOUNTER → 2025-07-01 | Outpatient (CLI) | payer MEDICARE, OTHER, SELFPAY ==
[2025-07-01 10:34] LABS: Mucous, Urine 0 SEEN /hpf (<or=2+)
--- NOTE | 2025-07-01 11:00 | RAD_ITS ---
PROCEDURE: CHEST PA AND LATERAL 07/01/2025 REASON FOR EXAM: PRE-OPERATIVE: LOOP RECORDER PLACEMENT TECHNIQUE: Procedure Code: RADCXR Modality: DX Procedure: CHEST PA AND LATERAL FINDINGS: 1.1 cm circular right lower thoracic opacity likely nipple shadow. No focal consolidation. No pleural effusion or pneumothorax. Cardiac silhouette is within normal limits. No acute fractures. RAD/Chest PA and Lateral IMPRESSION: No focal consolidations. Reading Location: [id number]
[2025-07-01 11:49] LABS: Hematocrit 42.3 % (40-54); Hemoglobin 14.3 g/dL (13.0-16.5); Mean Corp Hgb Conc 33.8 g/dL (32-36); Mean Corpuscular Volume 90.0 fL (80-94); Mean Platelet Vol. 9.1 fl (6.2-12.0); Platelet Count 336 K/mm3 (150-450); RBC Distribution Width CV 13.1 % (11.6-14.6); RBC Distribution Width SD 43.3 fl (35.1-43.9); Red Blood Count 4.70 M/mm3 (4.6-6.2); White Blood Count 6.8 K/mm3 (4.4-11.0)
[2025-07-01 12:04] LABS: Color, Urine Yellow (Yellow); Glucose, Dipstick Normal (Normal); Ketone-Dipstick Negative (Negative); Leukocyte Esterase-Dipstick 100 /ul (Negative); Nitrite-Dipstick Negative (Negative); Occult Blood-Urine 250 /ul (Negative); Protein-Dipstick 15 mg/dl (Negative); Specific Gravity, Urine 1.015 (1.002-1.030); Urine Bilirubin Dipstick Negative (Negative)
[2025-07-01 12:16] LABS: Red Blood Cells-Urine 25-50 SEEN /hpf (0-5); Squamous Epithelial Cells - UA 0-5 SEEN /hpf (0-5)
[2025-07-01 12:37] LABS: Anion Gap 12 (5-15); BUN 13 mg/dL (4-19); BUN/Creat Ratio 15.0 RATIO (10-20); Calcium,Total 9.3 mg/dL (7.6-11.0); Carbon Dioxide 25.6 mmol/L (21.0-32.0); Chloride 102 mmol/L (98-108); Glucose 110 mg/dL (70-99); Potassium 4.1 mmol/L (3.3-5.1)
== END | disposition home or self-care (01) ==
PROVIDERS: PCP Student in an Organized Health Care Education/Training Program; Referring Provider Nurse Practitioner Family; Visit Provider Nurse Practitioner Family
DX: Z01.812 Encounter for preprocedural laboratory examination (principal); I35.0 Nonrheumatic aortic (valve) stenosis; I45.2 Bifascicular block; I49.1 Atrial premature depolarization; Z86.73 Personal history of transient ischemic attack (TIA), and cerebral infarction without residual deficits
CPT/HCPCS: 36415; 71046; 80048; 81001; 85027

== ENCOUNTER 2025-07-10 07:06 | Day surgery (SDC) | payer MEDICARE, OTHER, SELFPAY ==
[2025-07-09 08:54] VITALS: BMI 31.1
--- OUTSIDE RECORDS SUMMARY | 2025-07-10 07:14 | XMS RPT_ITS | CCD ---
Author Organization [facility] ion Partnership [facility] Care Team Providers Care Key Cutter Name Role Phone Matt Hernandez Unavailable Unavailable Unavailable Unavailable Matt Hernandez Unavailable Unavailable Matt Hernandez Unavailable Unavailable Matt Hernandez Unavailable Unavailable Matt Hernandez Unavailable Unavailable MATT HERNANDEZ Unavailable Unavailable Matt Hernandez Primary Care Provider Sarah Loera Primary Care Provider Matt Hernandez Primary Care Provider Matt Hernandez Primary Care Provider Mark Odell Unavailable Mark Odell Unavailable [phone] Matt Hernandez Primary Care Provider ISAI PAGE Attending Unavailable ISAI PAGE Referring Unavailable MATT HERNANDEZ Primary Care Unavailable ISAI PAGE Attending Unavailable ISAI PAGE Referring Unavailable MATT HERNANDEZ Primary Care Unavailable MARK ODELL Attending Unavailable MARK ODELL Referring Unavailable MATT HERNANDEZ Primary Care Unavailable Matt Hernandez Primary Care Provider Matt Hernandez Primary Care Provider Mark Odell Unavailable Matt Hernandez MD Primary Care Provider [phone] Mark Odell MD Unavailable JANESSA CASTELLANOSN-SENIOR CONTROLS ANALYST, MARTA Primary Care Physician Mark Odell MD Unavailable System, Provider Not In Primary Care Provider Un available Marta Solorio Unavailable Sarah Loera CNP Primary Care Provider Matt Hernandez MD Primary Care Provider Mark Odell MD Unavailable System, Provider Not In Primary Care Provider Un available Matt Hernandez MD Primary Care Provider WAQAR DANCE HALL HOSTESS-SENIOR CONTROLS ANALYST, JOSEFINA A Primary Care Physi waldo MARK ODELL Attending Unavailable SYSTEM, PROVIDER NOT IN Primary Care Unavaila ble Dr. Matt Hernandez Primary Care Provider Dr. Matt Hernandez Referring Provider [phone] Topher Poe Attending Provider Waqar SENIOR ACCOUNTS PAYABLE CLERK, SENIOR ACCOUNTS PAYABLE CLERK-C Josefina Primary Care Provider Waqar SENIOR ACCOUNTS PAYABLE CLERK, SENIOR ACCOUNTS PAYABLE CLERK-C Josefina Primary Care Provider Waqar SENIOR ACCOUNTS PAYABLE CLERK, SENIOR ACCOUNTS PAYABLE CLERK-C Josefina Referring Provider Shimon SENIOR ACCOUNTS PAYABLE CLERK, SENIOR ACCOUNTS PAYABLE CLERK-C Sarah Attending Provider [phone] WAQAR DANCE HALL HOSTESS-SENIOR CONTROLS ANALYST, JOSEFINA A Attending Un available WAQAR DANCE HALL HOSTESS-SENIOR CONTROLS ANALYST, JOSEFINA A Primary Care Un available WAQAR DANCE HALL HOSTESS-SENIOR CONTROLS ANALYST, JOSEFINA A Attending Un available WAQAR DANCE HALL HOSTESS-SENIOR CONTROLS ANALYST, JOSEFINA A Primary Care Un available SEFFENS DANCE HALL HOSTESS-SENIOR CONTROLS ANALYSTLENKA Attending Fernando chacon WAQAR DANCE HALL HOSTESS-SENIOR CONTROLS ANALYST, JOSEFINA A Primary Care Un available WAQAR DANCE HALL HOSTESS-SENIOR CONTROLS ANALYST, JOSEFINA A Attending Un available WAQAR DANCE HALL HOSTESS-SENIOR CONTROLS ANALYST, JOSEFINA A Primary Care Un available WAQAR DANCE HALL HOSTESS-SENIOR CONTROLS ANALYST, JOSEFINA A Attending Un available WAQAR DANCE HALL HOSTESS-SENIOR CONTROLS ANALYST, JOSEFINA A Primary Care Un available Waqar SENIOR ACCOUNTS PAYABLE CLERK-C, Josefina Primary Care Provider Waqar SENIOR ACCOUNTS PAYABLE CLERK-C, Josefina Referring Provider [phone] Shimon ANGELES-Wan, Sarah Attending Provider Shimon SENIOR ACCOUNTS PAYABLE CLERK-C, Sarah Referring Provider WAQAR DANCE HALL HOSTESS-SENIOR CONTROLS ANALYST, JOSEFINA A Attending Un available WAQAR DANCE HALL HOSTESS-SENIOR CONTROLS ANALYST, JOSEFINA A Primary Care Un available WAQAR DANCE HALL HOSTESS-SENIOR CONTROLS ANALYST, JOSEFINA A Attending Un available WAQAR DANCE HALL HOSTESS-SENIOR CONTROLS ANALYST, JOSEFINA A Primary Care Un available Dr. Topher Poe MD Attending Provider Unavailable Primary Care Provider UnavailRAY Tony Attending Unavailable GEORGE, DOMINIC Admitting Unavailable REQUEST, IP PHYSICAL THERAPY SERVICE Consulting Unavailable REQUEST, IP OCCUPATIONAL THERAPY SERVICE Consult ing Unavailable REQUEST, IP BULLION WEIGHER SERVICE Consulting Unavaila ble ELICIA, DOMINIC Admitting Unavailable PROVIDER, UNKNOWN Attending Unavailable PROVIDER, UNKNOWN Attending Unavailable PROVIDER, UNKNOWN Admitting Unavailable PROVIDER, UNKNOWN Attending Unavailable PROVIDER, UNKNOWN Admitting Unavailable Dr. Topher Poe MD Attending Physician Dr. Topher Poe MD Referring Provider [phone] Waqar SENIOR ACCOUNTS PAYABLE CLERK-C, Josefina Primary Care Physician Dr. Abby Alonso DO Attending Physician [phone] Dr. Abby Alonso DO Referring Provider Waqar ANGELES-C, Josefina Referring Provider [phone] Rodriguez ANGELES-Jeremy Blas Attending Physician Jennifer ANGELES-Matt Blas Attending Physician [phone] Abby Alonso DO Primary Care Physician Jeremy Anderson Referring Provider Dr. Abby Alonso DO Attending Physician [phone] Dr. Abby Alonso DO Referring Provider Abby Alonso Primary Care Unavailable Jeremy Frias Attending Unavailable Jeremy Frias Referring Unavailable Waqar ANGELES, [facility] Unavailabl e Abby Alonso Attending Unavailable Abby Alonso Referring Unavailable Waqar SENIOR ACCOUNTS PAYABLE CLERK, [facility] Unavailabl e Deepika, Acworth Attending Unavailable Deepika, Acworth Referring Unavailable Deepika, Acworth Attending Unavailable Waqar SENIOR ACCOUNTS PAYABLE CLERK, [facility] Unavailabl e Waqar SENIOR ACCOUNTS PAYABLE CLERK, Josefina Referring Unavailabl e Waqar SENIOR ACCOUNTS PAYABLE CLERK, Josefina Referring Unavailabl e Waqar SENIOR ACCOUNTS PAYABLE CLERK, [facility] Unavailabl e Jeremy Frias Attending Unavailable Jennifer SENIOR ACCOUNTS PAYABLE CLERK, Matt Harris Attending Unavailable Abby Alonso Primary Care Unavailable Waqar SENIOR ACCOUNTS PAYABLE CLERK, Josefina Referring Unavailchau e Shimon SENIOR ACCOUNTS PAYABLE CLERK, Sarah Attending Unavailable Waqar SENIOR ACCOUNTS PAYABLE CLERK, [facility] Unavailabl e Waqar SENIOR ACCOUNTS PAYABLE CLERK, Josefina Referring Unavailabl e Shimon SENIOR ACCOUNTS PAYABLE CLERK, Sarah Attending Unavailable Shimon SENIOR ACCOUNTS PAYABLE CLERK, Sarah Referring Unavailable Waqar SENIOR ACCOUNTS PAYABLE CLERK, [facility] Unavailabl e Allergies Allergy Classification Reported Allergen(s) Allergy Type Date of Onset Reaction(s) Facility Cephalosporins (antibiotic) (1 source) Cephalexin Drug Allergy 02-26-20 06 Rash [facility] Lincosamides (antibiotic) (1 source) Clindamycin Drug Allergy 05-01-20 16 GI Intolerance [facility] Work Phone: rivaroxaban (1 source) rivaroxaban Drug Allergy 05-01-20 16 Rash [facility] (20 sources) cephalexin; Translations: [cephalexin] Propensity to adverse reactions to drug 02-26-20 06 Rash, Eruption of skin (disorder) [facility] Work Phone: (20 sources) clindamycin; Translations: [Unknown] Propensity to adverse reactions to drug 05-01-20 16 GI Intolerance [facility] Work Phone: (20 sources) rivaroxaban; Translations: [Xarelto TABS] Propensity to adverse reactions to drug 05-01-20 16 Rash [facility] Work Phone: (13 sources) rivaroxaban; Translations: [rivaroxaban] Drug Allergy Eruption of skin (disorder) [facility] (18 sources) Etanercept; Translations: [etanercept] Drug Allergy 10-28-19 Rash [facility] (13 sources) methylPREDNISolone; Translations: [methylprednisolone] Drug Allergy 10-28-19 Facial redness, rash, Rash [facility] (12 sources) Grass Allergy to substance [facility] (12 sources) Pet Dander Allergy to [facility] (12 sources) pollen-tree Allergy to [facility] (1 source) rivaroxaban Drug Allergy 04-12-20 [facility] (1 source) Cephalexin Drug Allergy 05-13-20 [facility] (1 source) Clindamycin Drug Allergy 05-13-20 [facility] (1 source) Etanercept Drug Allergy 05-13-20 [facility] (1 source) methylPREDNISolone Drug Allergy 05-13-20 [facility] (1 source) rivaroxaban Drug Allergy 05-13-20 [facility] Medications Current Medications Medication Drug Class(es) Dates Sig (Normalized) Sig (Original) acetaminophen 300 mg / codeine phosphate 30 mg oral tablet (1 source) Opioid Agonist Start: 06-17-2020 End: 06-24-2020 take 1 tablet by mouth every four hours as needed for pain, then take 1 tablet by mouth as needed for pain acetaminophen-code ine (TYLENOL/CODEINE #3) 300-30 MG per tablet Indications: Wrist arthritis Take 1 tablet by mouth every 4 hours as needed for Pain for up to 7 days. Intended supply: 7 days. Take lowest dose possible to manage pain 42 tablet 0 06/17/2020 06/24/2020 Active ALPRAZolam 0.25 mg disintegrating oral tablet (1 source) Benzodiazepine Start: 06-17-2020 ALPRAZolam (NIRAVAM) dissolvable tablet 0.25 mg ascorbic acid 500 mg oral capsule (20 sources) Start: 09-05-2018 take 2 capsules by mouth once daily Start: 09-05-2018 take 1000 mg by mout h once daily Ascorbic Acid (Vitamin C) Active 1000 MG PO daily September 05, 2018 12:00am End: 02-06-2020 take 1 tablet by mouth once daily ascorbic acid, vitamin C, (vitamin C) 1000 MG tablet Take 1,000 mg by mouth daily. 0 02/06/2020 Discontinued (Patient's Request) take 1 tablet by doug th once daily Ascorbic Acid (VITAMIN C) 250 MG tablet Take 250 mg by mouth daily 0 Active aspirin 81 mg delayed release oral tablet (20 sources) Nonsteroidal Anti-inflammatory Drug Start: 04-18-2025 take 1 tablet by mouth once daily Start: 04-14-2025 take 1 tablet by doug th once daily aspirin EC 81 MG tablet Take 1 Tablet by mouth daily. 30 Tablet 2 04/13/2025 12:52 PM EDT 04/14/2025 Active Start: 04-12-2025 take 81 mg by mouth once daily 81 mg, Oral, DAILY, First dose on 04/13/25 at 0900, Until Discontinued Start: 06-29-2021 aspirin 81 mg oral delayed release tablet Dose : 81 mg = 1 tab(s), Oral, Daily, 0 Refill(s) Start Date: 06/29/21 Status: Ordered Start: 05-22-2020 End: 07-27-2023 take 1 tablet by mouth once daily Aspirin (Adult Aspirin Regimen) 81 mg tablet,delayed release (DR/EC) Discontinued 81 mg PO DAILY May 22, 2020 12:00am July 27, 2023 3:05pm Start: 03-26-2019 End: 12-18-2024 take 1 tablet by mouth every other day Aspirin (Adult Aspirin Regimen) 81 mg tablet,delayed release (DR/EC) Discontinued 81 mg PO every other day October 25, 2023 3:32pm December 18, 2024 3:41pm Start: 07-05-2018 End: 07-05-2019 aspirin 81 mg oral delayed r elease tablet Dose : 81 mg = 1 tab(s), Oral, Daily, 0 Refill(s) Start Date: 03/26/19 Status: Ordered End: 07-05-2018 take 1 tablet by mouth every week aspirin 81 MG EC tablet Take 81 mg by mouth once a week . 07/05/2018 Discontinued Blood-Glucose Meter (Accu-Ch ek Guide Me Glucose Mtr) [facility] [place] (5 sources) Start: 07-27-2023 Blood-Glucose Meter (Accu-Chek Guide Me Glucose Mtr) [facility] [place] Active NMA .ROUTE .MEDSUPPLY July 27, 2023 1:00am As directed Start: 07-27-2023 Blood-Glucose Meter (Accu-Chek Guide Me Glucose Mtr) misc Active EACH .ROUTE .MEDSUPPLY 1 July 27, 2023 12:00am As directed chondroitin sulfate A 250 mg capsule (4 sources) Start: 10-27-2022 chondroitin lawrence lfate A 250 mg capsule Active 1200 MG PO DAILY October 27, 2022 2:51pm Start: 10-27-2022 chondroitin lawrence lfate A 250 mg capsule Active 1200 MG PO DAILY October 27, 2022 3:51pm Start: 09-05-2018 End: 10-27-2022 chondroitin sulfate A 250 mg capsule Discontinued 1500 MG PO DAILY September 05, 2018 12:00am October 27, 2022 2:55pm Start: 09-05-2018 End: 10-27-2022 chondroitin sulfate A 250 mg capsule Discontinued 1500 MG PO DAILY September 05, 2018 1:00am October 27, 2022 3:55pm ciprofloxacin 500 mg oral tablet (7 sources) Quinolone Antimicrobial Start: 03-25-2022 End: 04-01-2022 Cipro 500 mg oral tablet Dose : 500 mg = 1 tab(s), Oral, q12h, X 7 day(s), # 14 tab(s), 0 Refill(s), 04/01/22 6:03:00 EDT, Pharmacy: [facility]/pharmacy #[id number], 189, cm, 12/29/21 14:07:00 EDT, Height, 123.1 Start Date: 03/25/22 Stop Date: 04/01/22 Status: Ordered Start: 01-13-2020 End: 01-22-2020 take 1 tablet by mouth twice daily Ciprofloxacin Hcl 500 MG tablet Discontinued 500 mg PO TWICE A DAY 14 0 January 13, 2020 12:00am January 22, 2020 11:21am Compression Stocking,Knee High,Long Length,Medium Circ (2 sources) Start: 04-11-2017 comp.stocking, knee,long,medium Misc Indications: venous insufficiency 30-40 mm HG above the calf . Apply in am and off in pm Reasons: venous insufficiency. 2 Units 4 04/11/2017 Active Start: 03-24-2017 End: 04-11-2017 comp.stocking,knee,long,medi um Misc Indications: venous insufficiency 20-30 mm HG above the calf . Apply in am and off in pm Reasons: venous insufficiency. 2 Units 4 03/24/2017 04/11/2017 Discontinued 1 ml diphenhydrAMINE hydrochloride 50 mg/ml cartridge (1 source) Histamine-1 Receptor Antagonist Start: 06-17-2020 End: 06-17-2020 diphenhydrAMINE (BENADRYL) injection 12.5 mg DME MISCellaneous (5 sources) Start: 05-20-2023 DME MISCellane ous See Instructions, AccuChek Glucometer. Use to monitor glucose once daily, # 1 EA, 0 Refill(s), Pharmacy: [facility]/pharmacy #[id number], DMII (diabetes mellitus, type 2), 190, cm, 03/18/23 11:40:00 EDT, Height, 124.8, kg, 03/18/23 11:40:00 EDT, Dosing Weight Start Date: 05/20/23 Status: Ordered Quantity: 1.0 Unit: EA Repeat number: 1 Indications: Type 2 diabetes mellitus without complications; Start: 05-20-2023 DME MISCellane ous See Instructions, AccuChek Glucometer. Use to monitor glucose once daily, # 1 EA, 0 Refill(s), Pharmacy: [facility]/pharmacy #[id number], DMII (diabetes mellitus, type 2), 190, cm, 03/18/23 11:40:00 EDT, Height, 124.8, kg, 03/18/23 11:40:00 EDT, Dosing Weight Start Date: 05/20/23 Status: Ordered Quantity: 1.0 Unit: EA Repeat number: 1 Indication: Type 2 diabetes mellitus without complications Start: 05-20-2023 DME MISCellane ous See Instructions, AccuChek Glucometer. Use to monitor glucose once daily, # 1 EA, 0 Refill(s), Pharmacy: [facility]/pharmacy #[id number], DMII (diabetes mellitus, type 2), 190, cm, 03/18/23 11:40:00 EDT, Height, 124.8, kg, 03/18/23 11:40:00 EDT, Dosing Weight Start Date: 05/20/23 Status: Ordered docusate sodium 100 mg oral capsule (20 sources) Start: 10-25-2023 take 1 capsule by [facility] once daily Start: 07-27-2023 End: 10-25-2023 take 2 capsules by mouth once daily Docusate Sodium (Colace) 100 mg capsule Discontinued 200 mg PO DAILY July 27, 2023 3:02pm October 25, 2023 3:37pm Start: 01-29-2019 Colace 100 mg oral capsule Dose : 100 mg = 1 cap(s), Oral, BID, PRN as needed for constipation, # 20 cap(s), 0 Refill(s) Start Date: 01/29/19 Status: Ordered Start: 09-05-2018 End: 07-27-2023 take 2 capsules by mouth twice daily Docusate Sodium (Colace) 100 mg capsule Discontinued 200 mg PO TWICE A DAY September 05, 2018 1:00am July 27, 2023 3:05pm SENOKOT-S (4 sources) Start: 02-14-2019 take 1 tablet by mouth twice daily Senokot S Dose = 2 tab(s), Oral, BID, 0 Refill(s) Start Date: 02/14/19 Status: Ordered ezetimibe 10 mg oral tablet (2 sources) Dietary Cholesterol Absorption Inhibitor Start: 04-14-2025 take 1 tablet by mouth once daily ezetimibe (ZETIA) 10 MG tablet Take 1 Tablet by mouth daily. 30 Tablet 3 04/13/2025 12:52 PM EDT 04/14/2025 Active Start: 04-13-2025 take 10 mg by mouth once daily 10 mg, Oral, DAILY, First dose on 04/13/25 at 0900, Until Discontinued GLUC LAWRENCE/CHONDRO LAWRENCE A/VIT C/MN (GLUCOSAMINE 1500 COMPLEX ORAL) (7 sources) GLUC LAWRENCE/CHONDRO LAWRENCE A/VIT C/MN (GLUCOSAMINE 1500 COMPLEX ORAL) Take 1,500 mg by mouth daily. Active [id number] ORAL (1 source) [id number] ORAL Take by mouth 2 (two) times a day . 0 Active Glucosamine 1500 Complex Oral (1 source) GLUC LAWRENCE/CHONDRO LAWRENCE A/VIT C/MN (GLUCOSAMINE 1500 COMPLEX ORAL) Take 1,500 mg by mouth daily. Active 1 ml hydrALAZINE hydrochloride 20 mg/ml injection (1 source) Arteriolar Vasodilator Start: 06-17-2020 hydrALAZINE (APRESOLINE) injection 5 mg Hydrocortisone (1 source) Corticosteroid Start: 09-14-2023 End: 09-28-2023 hydrocortisone 1% topical cream Apply 1 makenna, Topical, BID, X 14 day(s), # 30 gram(s), 0 Refill(s), Pharmacy: [id number], Cream, 190, cm, 09/14/23 10:56:00 EST, Height, 123.6, kg, 09/14/23 10:56:00 EST, Dosing Weight Start Date: 09/14/23 Stop Date: 09/28/23 Status: Ordered 1 ml HYDROmorphone hydrochloride 1 mg/ml cartridge (4 sources) Opioid Agonist Start: 06-17-2020 HYDROmorphone (DILAUDID) injection 0.25 mg Start: 06-17-2020 HYDROmorphone (DILAUDID) injection 0.5 mg Start: 06-17-2020 HYDROmorphone (DILAUDID) injection 1 mg 4 ml labetalol hydrochloride 5 mg/ml cartridge (1 source) beta-Adrenergic Bertin Start: 06-17-2020 labetalol (NORMODYNE;TRANDATE) injection 5 mg losartan potassium 25 mg oral tablet (20 sources) Angiotensin 2 Receptor Bertin Start: 10-04-2017 End: 04-18-2025 take 1 tablet by mouth once daily lysine 500 mg oral tablet (20 sources) Start: 10-27-2022 take 1 tablet by mouth once daily Start: 12-29-2021 take 1 mg by mouth once daily lysine mg =, Oral, qDay, 0 Refill(s) Start Date: 12/29/21 Status: Ordered Repeat number: 1 Start: 12-29-2021 take 1 mg by mouth once daily lysine mg =, Oral, qDay, 0 Refill(s) Start Date: 12/29/21 Status: Ordered Start: 05-22-2020 End: 07-27-2023 take 1 tablet by mouth once daily Lysine 1,000 mg tablet Discontinued 1000 mg PO DAILY May 22, 2020 12:00am July 27, 2023 3:03pm 1 ml meperidine hydrochloride 50 mg/ml injection (1 source) Opioid Agonist Start: 06-17-2020 meperidine (DE MEROL) injection 12.5 mg metFORMIN hydrochloride 500 mg oral tablet (20 sources) Biguanide Start: 09-21-2024 End: 09-16-2025 MetFORMIN (Eqv-Glucophage XR) 500 mg oral tablet, EXTENDED RELEASE Dose : 500 mg = 1 tab(s), Oral, qDay, TAKE 1 TABLET BY MOUTH EVERY DAY, # 90 tab(s), 3 Refill(s), Pharmacy: [facility]/pharmacy #[id number], 190, cm, 09/21/24 15:48:00 EST, Height, kg, 09/21/24 15:48:00 EST, Dosing Weight Start Date: 09/21/24 Stop Date: 09/16/25 Status: Ordered Quantity: 90.0 Unit: tab(s) Repeat number: 4 Start: 10-25-2023 take 1 tablet by doug th once daily Start: 09-05-2018 End: 09-08-2024 take 1 tablet by mouth once daily Metformin 500 mg tablet Discontinued 500 mg PO DAILY September 05, 2018 1:00am October 25, 2023 3:33pm Start: 01-29-2018 End: 12-04-2019 take 1 tablet by mouth once daily at breakfast metFORMIN (GLUCOPHAGE-XR) 500 MG 24 hr tablet Indications: Type 2 diabetes mellitus without complication, with long-term current use of insulin (HCC) TAKE 1 (ONE) TABLET (500 MG TOTAL) BY MOUTH DAILY WITH BREAKFAST. 90 tablet 3 07/12/2018 12/04/2018 Discontinued (Reorder (Suppress CancelRx Message to Pharmacy)) Start: 01-27-2017 End: 01-27-2018 take 1 tablet by mouth once daily at breakfast metFORMIN (GLUCOPHAGE-XR) 500 MG 24 hr tablet Take 1 (one) tablet (500 mg total) by mouth daily with breakfast. 90 tablet 3 01/27/2017 01/27/2018 Active metroNIDAZOLE (1 source) Nitroimidazole Antimicrobial Start: 06-29-2021 End: 07-13-2021 metroNIDAZOLE 0.75% topical gel Apply 1 makenna, Topical, BID, # 45 gram(s), 0 Refill(s), Pharmacy: [facility]/pharmacy #[id number], 189, cm, 06/29/21 9:38:00 EST, Height, 125.4, kg, 06/29/21 9:38:00 EST, Dosing Weight Start Date: 06/29/21 Stop Date: 07/13/21 Status: Ordered Misc Natural Products (GLUCOSAMINE CHOND COMPLEX/MSM PO) (5 sources) Misc Natural Pro ducts (GLUCOSAMINE CHOND COMPLEX/MSM PO) Take by mouth 0 Suspended Misc Natural Pro ducts (GLUCOSAMINE CHOND COMPLEX/MSM PO) Take by mouth 0 Active Multiple Vitamins-Minerals ( MULTIVITAMIN ADULT EXTRA C PO) (5 sources) Multiple Vitamin s-Minerals (MULTIVITAMIN ADULT EXTRA C PO) Take by mouth 0 Suspended Multiple Vitamin s-Minerals (MULTIVITAMIN ADULT EXTRA C PO) Take by mouth 0 Active Multivitamin (Multiple Vitam ins) tablet (6 sources) Start: 09-05-2018 Start: 09-05-2018 Multivitamin ( Multiple Vitamins) tablet Active 1 {tbl} PO DAILY September 05, 2018 1:00am Complies with drug therapy Start: 09-05-2018 Multivitamin ( Multiple Vitamins) tablet Active 1 {tbl} PO DAILY September 05, 2018 1:00am Start: 09-05-2018 take 1 tablet by doug th once daily Multivitamin (Multiple Vitamins) tablet Active 1 TABLET PO DAILY September 05, 2018 12:00am Start: 09-05-2018 take 1 tablet by doug th once daily Multivitamin (Multiple Vitamins) tablet Active 1 TABLET PO DAILY September 05, 2018 1:00am multivitamin capsule (20 sources) take 1 capsule by mo uth once daily multivitamin capsule Take 1 capsule by mouth daily. 0 Active take 1 capsule by mouth once lorenzo ly multivitamin capsule Take 1 capsule by mouth daily. Active Multivitamin Capsule (2 sources) take 1 capsule by mouth once daily multivitamin capsule Take 1 capsule by mouth daily. Active Multivitamin preparation (12 sources) Start: 01-29-2019 take 1 tablet by mouth once daily Multivitamin Dose = 1 tab(s), Oral, Daily, 0 Refill(s) Start Date: 01/29/19 Status: Ordered Repeat number: 1 Start: 01-29-2019 take 1 tablet by doug th once daily Multivitamin Dose = 1 tab(s), Oral, Daily, 0 Refill(s) Start Date: 01/29/19 Status: Ordered mupirocin 0.02 mg/mg topical ointment (1 source) RNA Synthetase Inhibitor Antibacterial Start: 05-27-2023 End: 06-06-2023 mupirocin 2% topical ointment Apply 1 makenna, Topical, TID, X 10 day(s), # 22 gram(s), 0 Refill(s), Pharmacy: [facility]/pharmacy #[id number], Ointment, 190, cm, 05/27/23 9:42:00 EDT, Height, 122.2, kg, 05/27/23 9:42:00 EDT, Dosing Weight Start Date: 05/27/23 Stop Date: 06/06/23 Status: Ordered 2 ml ondansetron 2 mg/ml injection (1 source) Serotonin-3 Receptor Antagonist Start: 06-17-2020 End: 06-17-2020 ondansetron (ZOFRAN) injection 4 mg oxyCODONE (1 source) Opioid Agonist Start: 06-17-2020 End: 06-17-2020 oxyCODONE (ROXICODONE) immediate release tablet 5 mg 1 ml promethazine hydrochloride 25 mg/ml injection (1 source) Phenothiazine Start: 06-17-2020 End: 06-17-2020 promethazine (PHENERGAN) injection 6.25 mg psyllium 3400 mg powder for oral suspension (4 sources) take 1 dose by mouth once daily psyllium (METAMUCIL) 3.4 gram packet Take 1 packet by mouth daily . 0 Active Psyllium Husk (2 sources) Start: 05-22-2020 take 3 g by mouth once daily Psyllium Husk Active 3 GM PO DAILY May 21, 2020 11:00pm Start: 05-22-2020 take 3 g by mouth once daily P syllium Husk Active 3 GM PO DAILY May 22, 2020 12:00am 200 ml ropivacaine hydrochloride 2 mg/ml injection (1 source) Amide Local Anesthetic Start: 06-17-2020 ropivacaine 0.2% (NAROPIN) elastomeric infusion 550 mL rosuvastatin calcium 20 mg oral tablet (2 sources) HMG-CoA Reductase Inhibitor Start: 05-08-2025 take 1 tablet by mouth once daily Selenium 200 mcg capsule (6 sources) Start: 05-08-2025 take 1 capsule by mouth once daily Start: 05-08-2025 take 1 capsule by [facility] once daily Selenium 200 mcg capsule Active 200 ug PO daily May 08, 2025 12:00am Complies with drug therapy Start: 09-05-2018 End: 07-27-2023 take 1 capsule by mouth once daily Selenium 200 mcg capsule Discontinued 200 ug PO DAILY September 05, 2018 1:00am July 27, 2023 3:04pm selenium 200 mcg oral tablet (12 sources) Start: 01-29-2019 selenium 200 m cg oral tablet Dose : 200 mcg = 1 tab(s), Oral, Daily, # 30 tab(s), 0 Refill(s) Start Date: 01/29/19 Status: Ordered Quantity: 30.0 Unit: tab(s) Repeat number: 1 Start: 01-29-2019 selenium 200 m cg oral tablet Dose : 200 mcg = 1 tab(s), Oral, Daily, # 30 tab(s), 0 Refill(s) Start Date: 01/29/19 Status: Ordered selenium 200 mcg Tab (15 sources) take 1 tablet by mouth once daily selenium 200 mcg Tab Take 200 mcg by mouth daily. 0 Active Selenium 200 McG Tablet (9 sources) take 1 tablet by mouth once daily selenium 200 mcg Tab Take 200 mcg by mouth daily. Active sertraline 100 mg oral tablet (20 sources) Serotonin Reuptake Inhibitor Start: 03-30-2018 take 1 tablet by mouth once daily Start: 08-13-2017 sertraline (ZO LOFT) 100 MG tablet Take 75 mg by mouth daily 4 08/13/2017 Active Start: 07-20-2016 End: 03-24-2017 take 1 tablet by mouth once daily sertraline (ZOLOFT) 100 MG tablet Take 1 (one) tablet (100 mg total) by mouth daily. 90 tablet 4 03/24/2017 Active Methylcellulose (With Sugar) Oral Powder (9 sources) methylcellulose (CITRUCEL, SUCROSE,) oral powder Take by mouth daily. Active sulfamethoxazole 800 mg / trimethoprim 160 mg oral tablet (1 source) Dihydrofolate Reductase Inhibitor Antibacterial, Sulfonamide Antimicrobial Start: 023 End: 023 take 1 tablet by mouth every twelve hours Bactrim DS 800 mg-160 mg oral tablet Dose = 1 tab(s), Oral, q12h, X 14 day(s), # 28 tab(s), 0 Refill(s), Pharmacy: [facility]/pharmacy #[id number], 190, cm, 05/27/23 9:42:00 EDT, Height, 122.2, kg, 05/27/23 9:42:00 EDT, Dosing Weight Start Date: 10/27/23 Stop Date: 06/10/23 Status: Ordered traMADol hydrochloride 50 mg oral tablet (20 sources) Opioid Agonist Start: End: take 1 tablet by mouth once daily traMADol 50 mg oral tablet Dose : 50 mg = 1 tab(s), Oral, q12h, PRN for pain, oaars reviewed. not to exceed 400 mg/day, X 14 day(s), # 14 tab(s), 2 Refill(s), 10/26/23 12:38:00 PM EDT, Pharmacy: [id number], Psoriatic arthritis, 190, cm, 09/14/23 10:56:00 EST, Height, 123.6, kg, 09/14/23 10:56:00 EST, Dosing Weight Start Date: 09/14/23 Stop Date: 10/26/23 Status: Ordered Start: 06-19-2018 End: 12-19-2019 take 1 tablet by mouth once daily, then take 1 tablet by mouth every twenty-four hours traMADol (ULTRAM-ER) 200 MG 24 hr tablet Take 200 mg by mouth daily . 3 06/19/2018 08/17/2018 Discontinued (Reorder (Suppress CancelRx Message to Pharmacy)) Start: 03-30-2018 End: 07-05-2018 take 1 capsule by mouth once daily traMADol 200 mg MP25 Indications: Chronic midline low back pain without sciatica , Psoriatic arthritis (HCC) Take 1 capsule by mouth daily (Days supply per fill: 30). 30 capsule 3 03/30/2018 07/05/2018 Discontinued Start: 12-28-2017 take 1 capsule by [facility] once daily, then take 30 capsules by mouth traMADol 150 mg MP25 Indications: Primary osteoarthritis of both knees Take 150 mg by mouth daily (Days supply per fill: 30). 30 capsule 2 12/28/2017 Active Start: 02-26-2017 End: 05-08-2025 take 1 tablet by mouth twice daily as needed Tramadol 50 mg tablet Discontinued 50 mg PO TWICE A DAY as needed October 27, 2022 12:00am May 08, 2025 9:19am Start: 02-26-2017 End: 10-18-2020 take 1 tablet by mouth every four hours as needed for pain Tramadol 50 MG tablet Discontinued 50 mg PO EVERY 4 HOURS NEEDED as needed for Pain 20 3 October 15, 2021 12:00am October 17, 2020 12:00am October 18, 2020 12:04am Start: 01-20-2017 End: 07-21-2017 traMADol 50 mg oral tablet D ose : 50 mg = 1 tab(s), Oral, q12h, PRN as needed for pain, 0 Refill(s) Start Date: 02/26/17 Status: Ordered Ygtvmeoz-Oebsou-Mnr-Calista-Alivia- Vani-Horse 100 Mg-100 Mg-100 Mg-125 Mg Tab (1 source) take 1 tablet by mouth once daily ofyx-ujlj-qhk-bug-koq-ucij-hor [phone] mg Tab Take 1 tablet by mouth daily TUMERIC OTC . Active vitamin b12 1 mg oral tablet (14 sources) Vitamin B12 take 1 tablet by mouth once daily cyanocobalamin (vitamin B-12) 1000 MCG tablet Take 1,000 mcg by mouth daily . 0 Active Cyanocobalamin ( VITAMIN B-12 PO) Take by mouth 0 Suspended Cyanocobalamin ( VITAMIN B-12 PO) Take by mouth 0 Active take 1 tablet by mouth once laurie y cyanocobalamin (vitamin B-12) 50 mcg tablet Take 50 mcg by mouth daily . 0 Active Vitamin C with Aniya Hips 100 0 mg oral tablet (12 sources) Start: 01-29-2019 Vitamin C with Aniya Hips 1000 mg oral tablet Dose : 1,000 mg = 1 tab(s), Oral, Daily, # 30 tab(s), 0 Refill(s) Start Date: 01/29/19 Status: Ordered Quantity: 30.0 Unit: tab(s) Repeat number: 1 Start: 01-29-2019 Vitamin C with Aniya Hips 1000 mg oral tablet Dose : 1,000 mg = 1 tab(s), Oral, Daily, # 30 tab(s), 0 Refill(s) Start Date: 01/29/19 Status: Ordered Vitamin D3 (12 sources) Start: 01-29-2019 Vitamin D3 10, 000, Oral, qDay, # 30 cap(s), 0 Refill(s) Start Date: 01/29/19 Status: Ordered Quantity: 30.0 Unit: cap(s) Repeat number: 1 Start: 01-29-2019 Vitamin D3 10, 000, Oral, qDay, # 30 cap(s), 0 Refill(s) Start Date: 01/29/19 Status: Ordered Start: 01-29-2019 Vitamin D3 Dos e : 5,000 unit(s) = 1 cap(s), Oral, qWeek, # 30 cap(s), 0 Refill(s) Start Date: 01/29/19 Status: Ordered zinc (20 sources) Copper Absorption Inhibitor Start: 09-05-2018 take 1 table t by mouth once daily Start: 09-05-2018 take 1 tablet by doug th once daily Zinc 50 mg tablet Active 50 mg PO DAILY September 05, 2018 1:00am Complies with drug therapy Start: 09-05-2018 take 1 tablet by doug th once daily Zinc 50 mg tablet Active 50 mg PO DAILY September 05, 2018 1:00am Start: 09-05-2018 take 50 mg by mouth once daily Zinc Active 50 MG PO DAILY September 05, 2018 12:00am Start: 09-05-2018 take 50 mg by mouth once daily Zinc Active 50 MG PO DAILY September 05, 2018 1:00am take 1 tablet by doug th once daily zinc 50 MG TABS tablet Take 50 mg by mouth daily 0 Suspended take 1 tablet by doug th once daily zinc 50 MG TABS tablet Take 50 mg by mouth daily 0 Active take 1 tablet by doug th once daily zinc 50 mg Tab Take 50 mg by mouth daily. 0 Active take 1 tablet by doug th once daily zinc 50 mg Tab Take 50 mg by mouth daily. Active zinc gluconate 50 mg oral tablet (16 sources) Start: 01-29-2019 zinc (as gluco crystal) 50 mg oral tablet Dose : 50 mg = 1 tab(s), Oral, Daily, # 30 tab(s), 0 Refill(s) Start Date: 01/29/19 Status: Ordered Quantity: 30.0 Unit: tab(s) Repeat number: 1 take 1 tablet by mouth once laurie y zinc 50 mg Tab Take 50 mg by mouth daily. 0 Active Completed/Discontinued Medications Medication Drug Class(es) Dates Sig (Normalized) Sig (Original) acetaminophen 325 mg oral tablet (20 sources) Start: 04-12-2025 650 mg, Oral, EVERY 4 HOURS PRN, Starting on Tue04/12/25 at 2218, Until Discontinued, Mild Pain (pain score 1,2,3), Moderate Pain (pain score 4,5,6), Severe Pain (pain score 7,8,9,10) Start: 04-12-2025 End: 04-12-2025 take 1 dose by mouth once 650 mg, Oral, ONCE, 1 dose, On Tue04/12/25 at 0200 Start: 10-27-2022 End: 10-25-2023 take 2 capsules by mouth three times daily as needed Start: 10-27-2022 take 1000 mg by mout h three times daily Acetaminophen Active 1000 MG PO THREE TIMES A DAY October 26, 2022 11:00pm Start: 06-17-2020 End: 06-17-2020 acetaminophen (TYLENOL) tabl et 1,000 mg Start: 02-14-2019 Tylenol Dose : 1,000 mg = 2 tab(s), Oral, q8hr, 0 Refill(s) Start Date: 02/14/19 Status: Ordered Repeat number: 1 apremilast 30 mg oral tablet (5 sources) Start: 07-04-2018 End: 09-14-2018 take 1 tablet by mouth twice daily OTEZLA 30 mg Tab Take 30 mg by mouth 2 (two) times a day . 0 07/04/2018 09/14/2018 Discontinued (Discontinued by another clinician) Start: 03-23-2018 End: 07-05-2018 take 1 tablet by mouth twice daily OTEZLA STARTER 10 mg (4)-20 mg (4)-30 mg (47) DsPk Take 1 tablet by mouth 2 (two) times a day . 03/23/2018 07/05/2018 Discontinued arginine 500 mg oral tablet (9 sources) End: 07-05-2018 take 1 tablet by mouth once daily arginine 500 mg tablet Take 500 mg by mouth daily . 07/05/2018 Discontinued take 1 tablet by mouth twice lorenzo ly arginine 500 mg tablet Take 500 mg by mouth 2 (two) times a day. Active bupivacaine, EPINEPHrine and dexamethasone (TAP) syringe (1 source) Start: 06-17-2020 End: 06-17-2020 bupivacaine, EPINEPHrine and dexamethasone (TAP) syringe bupivacaine, EPINEPHrine and dexamethasone (TAP) syringe 30 mL (1 source) Start: 06-17-2020 End: 06-17-2020 bupivacaine, EPINEPHrine and dexamethasone (TAP) syringe 30 mL calcium chloride 0.0014 meq/ml / potassium chloride 0.004 meq/ml / sodium chloride 0.103 meq/ml / sodium lactate 0.028 meq/ml injectable solution (2 sources) Start: 04-12-2025 End: 04-12-2025 take 1 dose intravenously every hour 500 mL, at 150 mL/hr, Intravenous, FLUID BOLUS, 1 dose, On Tue04/12/25 at 0400 Start: 06-17-2020 lactated ringe rs infusion cholecalciferol 0.125 mg oral capsule (20 sources) Vitamin D Start: 10-25-2023 End: 05-08-2025 take 1 capsule by mouth once daily Cholecalciferol (Vitamin D3) 125 mcg (5,000 unit) capsule Discontinued 25166 U PO DAILY October 25, 2023 3:32pm May 08, 2025 9:20am Start: 07-27-2023 End: 10-25-2023 take 1 capsule by mouth once daily Cholecalciferol (Vitamin D3) 125 mcg (5,000 unit) capsule Discontinued 5000 U PO DAILY July 27, 2023 3:02pm October 25, 2023 3:37pm Start: 10-27-2022 End: 07-27-2023 take 1 capsule by mouth every week Cholecalciferol (Vitamin D3) 125 mcg (5,000 unit) capsule Discontinued 5000 U PO EVERY WEEK October 27, 2022 10:29am July 27, 2023 3:05pm Start: 09-05-2018 End: 10-27-2022 take 2 capsules by mouth once daily Cholecalciferol (Vitamin D3) 5,000 unit capsule Discontinued 80377 U PO DAILY September 05, 2018 1:00am October 27, 2022 10:36am Start: 09-05-2018 End: 10-27-2022 take 38058 [IU] by mouth once daily Cholecalciferol (Vitamin D3) Discontinued 50372 UNIT PO DAILY September 05, 2018 12:00am October 27, 2022 9:36am take 2 tablets by [place] [facility] once daily cholecalciferol, vitamin D3, (VITAMIN D3) 5,000 unit Tab Take 10,000 Units by mouth daily . 0 Active Cholecalciferol (VITAMIN D3) 1000 units CAPS Take by mouth 0 Active take 1 tablet by [facility] daily cholecalciferol, vitamin D3, (VITAMIN D3) 5,000 unit Tab Take 5,000 Units by mouth daily . 0 Active take 1 tablet by doug th twice daily cholecalciferol, vitamin D3, (VITAMIN D3) 5,000 unit Tab Take 5,000 Units by mouth 2 (two) times a day. Active CHONDROITIN SULFATE A (CHONDROITIN SULFATE ORAL) (16 sources) End: 02-06-2020 take 1500 mg by mouth once daily CHONDROITIN SULFATE A (CHONDROITIN SULFATE ORAL) Take 1,500 mg by mouth daily. 0 02/06/2020 Discontinued (Patient's Request) take 1500 mg by mouth once daily CHONDROITIN SULFATE A (CHONDROITIN SULFATE ORAL) Take 1,500 mg by mouth daily. 0 Active take 1500 mg by mouth once daily CHONDROITIN SULFATE A (CHONDROITIN SULFATE ORAL) Take 1,500 mg by mouth daily. Active Chondroitin Sulfate A 250 mg capsule (8 sources) Start: 10-27-2022 End: 05-08-2025 Chondroitin Sulfate A 250 mg capsule Discontinued 1200 mg PO DAILY October 27, 2022 3:51pm May 08, 2025 9:20am Start: 10-27-2022 Chondroitin Lawrence lfate A 250 mg capsule Active 1200 mg PO DAILY October 27, 2022 3:51pm Start: 09-05-2018 End: 10-27-2022 Chondroitin Sulfate A 250 mg capsule Discontinued 1500 mg PO DAILY September 05, 2018 1:00am October 27, 2022 3:55pm clocortolone 1 mg/ml topical cream (9 sources) Corticosteroid Start: 08-24-2016 End: 07-05-2018 clocortolone pivalate 0.1 % cream Apply 0.1 g topically 2 (two) times a day. 75 g 5 08/24/2016 07/05/2018 Discontinued clopidogrel 75 mg oral tablet (4 sources) [id number] Platelet Inhibitor Start: 04-18-2025 End: 05-08-2025 take 1 tablet by mouth once daily Clopidogrel 75 mg tablet Discontinued 75 mg PO daily April 18, 2025 12:00am May 08, 2025 9:20am Start: 04-14-2025 take 1 tablet by doug th once daily clopidogrel (PLAVIX) 75 MG tablet Take 1 Tablet by mouth daily. 30 Tablet 3 04/13/2025 12:52 PM EDT 04/14/2025 Active Start: 04-12-2025 take 75 mg by mouth once daily 75 mg, Oral, DAILY, First dose on Tue04/12/25 at 1330, Until Discontinued ubidecarenone 75 mg oral cap chip (11 sources) Start: 09-05-2018 End: 09-05-2018 Coenzyme Q10 (Ultra Coq10) 7 5 mg capsule Discontinued 200 mg PO DAILY September 05, 2018 1:00am September 05, 2018 10:04am End: 12-19-2019 coenzyme Q10 (CO Q-10) 200 m g capsule Take 200 mg by mouth daily . 0 12/19/2019 Discontinued comp.stocking,knee,long,medi um Misc (14 sources) Start: 04-11-2017 End: 02-06-2020 comp.stocking,knee,long,medi um Misc Indications: venous insufficiency 30-40 mm HG above the calf . Apply in am and off in pm Reasons: venous insufficiency. 2 Units 4 04/11/2017 02/06/2020 Discontinued (Patient's Request) Start: 04-11-2017 comp.stocking, knee,long,medium Misc Indications: venous insufficiency 30-40 mm HG above the calf . Apply in am and off in pm Reasons: venous insufficiency. 2 Units 4 04/11/2017 Active Start: 03-24-2017 comp.stocking, knee,long,medium Misc Indications: venous insufficiency 20-30 mm HG above the calf . Apply in am and off in pm Reasons: venous insufficiency. 2 Units 4 03/24/2017 Active 0.4 ml enoxaparin sodium 100 mg/ml prefilled syringe (1 source) Low Molecular Weight Heparin Start: 04-12-2025 inject 40 mg by subcutaneous injection once daily 40 mg, Subcutaneous, DAILY, First dose on Tue04/12/25 at 0900, Until Discontinued famotidine 20 mg oral tablet (1 source) Histamine-2 Receptor Antagonist Start: 06-17-2020 End: 06-17-2020 famotidine (PEPCID) tablet 20 mg 2 ml fentaNYL 0.05 mg/ml injection (2 sources) Opioid Agonist Start: 06-17-2020 End: 06-17-2020 fentaNYL (SUBLIMAZE) 100 MCG/2ML injection Start: 06-17-2020 fentaNYL (SUBL IMAZE) injection 50 mcg gadoterate meglumine (DOTAREM) injection 20 mL (1 source) Start: 04-08-2020 End: 04-08-2020 gadoterate meglumine (DOTAREM) injection 20 mL glucosamine hydrochloride 1500 mg oral tablet (20 sources) Start: 06-29-2021 take 1 tablet by mouth twice daily glucosamine hydrochloride 1500 mg oral tablet 1,500 mg Dose = 1 tab(s), Oral, BID, # 30 tab(s), 0 Refill(s) Start Date: 06/29/21 Status: Ordered Start: 01-29-2019 End: 05-08-2025 take 1 tablet by mouth once daily Glucosamine Hcl 1,500 mg tablet Discontinued 1500 mg PO DAILY October 27, 2022 12:00am May 08, 2025 9:19am administer with a meal insulin, regular, human 100 unt/ml injectable solution (1 source) Insulin Start: 04-12-2025 0-12 Units, Subcutaneous, 4 TIMES DAILY BEFORE MEALS & AT BEDTIME, First dose on Tue04/12/25 at 0800, Until Discontinued iohexol (OMNIPAQUE) 350 MG/ML injection (1 source) Start: 04-11-2025 End: 04-11-2025 75 mL, Intravenous, Once at Radiology exam, 1 dose, Starting on Bonnie 04/11/25 at 2321, Until Bonnie 04/11/25 at 2321, Imaging Protocol Orders levoFLOXacin 500 mg oral tablet (6 sources) Quinolone Antimicrobial Start: 10-15-2020 End: 10-27-2022 take 1 tablet by mouth once daily Levofloxacin 500 MG tablet Discontinued 500 mg PO DAILY October 15, 2020 12:00am October 27, 2022 3:55pm 10 ml lidocaine hydrochloride 10 mg/ml injection (3 sources) Antiarrhythmic, Amide Local Anesthetic Start: 06-17-2020 End: 06-17-2020 lidocaine PF 1 % injection 2 mL Start: 06-17-2020 End: 06-17-2020 lidocaine PF 1 % injection Start: 06-17-2020 End: 06-17-2020 lidocaine PF 1 % injection 1 mL lisdexamfetamine dimesylate 70 mg oral capsule (20 sources) Central Nervous System Stimulant Start: 10-12-2024 End: 01-10-2025 Vyvanse 70 mg oral capsule Dose : 70 mg = 1 cap(s), Oral, qAM, DNF until 11/11/24 oaars reviewed., # 30 cap(s), 0 Refill(s), Pharmacy: [id number], Attention deficit disorder, 190, cm, 09/21/24 15:48:00 EST, Height, 123.4, kg, 09/21/24 15:48:00 EST, Dosing Weight Start Date: 11/11/24 Stop Date: 12/11/24 Status: Ordered Quantity: 30.0 Unit: cap(s) Repeat number: 1 Indications: Other specified behavioral and emotional disorders with onset usually occurring in childhood and adolescence; Start: 09-19-2023 End: 12-18-2023 Vyvanse 70 mg oral capsule D ose : 70 mg = 1 cap(s), Oral, qAM, DNF until 10/19/2023 oaars reviewed., # 30 cap(s), 0 Refill(s), Pharmacy: [id number], Attention deficit disorder, 190, cm, 09/14/23 10:56:00 EST, Height, 123.6, kg, 09/14/23 10:56:00 EST, Dosing Weight Start Date: 10/19/23 Stop Date: 11/18/23 Status: Ordered Start: 05-20-2023 End: 06-19-2023 take 1 capsule by mouth once daily Vyvanse 30 mg oral capsule Dose : 60 mg = 2 cap(s), Oral, qAM, take 2 caps to equal 60mg once daily., # 60 cap(s), 0 Refill(s), Pharmacy: [facility]/pharmacy #[id number], Attention deficit disorder, 190, cm, 03/18/23 11:40:00 EDT, Height, 124.8, kg, 03/18/23 11:40:00 EDT, Dosing Weight Start Date: 05/20/23 Stop Date: 06/19/23 Status: Ordered Start: 01-21-2023 End: 03-22-2023 lisdexamfetamine 70 mg oral capsule Dose : 70 mg = 1 cap(s), Oral, qAM, DNF until 02/20/2023 Oaars reviewed., # 30 cap(s), 0 Refill(s), Pharmacy: [facility]/pharmacy #[id number], Attention deficit disorder, 190, cm, 12/22/22 8:04:00 EDT, Height, 124.8, kg, 12/22/22 8:04:00 EDT, Dosing Weight Start Date: 02/20/23 Stop Date: 03/22/23 Status: Ordered Start: 12-15-2022 End: 01-14-2023 lisdexamfetamine 70 mg oral capsule Dose : 70 mg = 1 cap(s), Oral, qAM, May fill 12/15/2022 OAARs reviewed., # 30 cap(s), 0 Refill(s), Pharmacy: [facility]/pharmacy #[id number], Attention deficit disorder, 190.5, cm, 09/13/22 15:59:00 EST, Height, 125.6, kg, 09/13/22 15:59:00 EST, Dosing Weight Start Date: 12/15/22 Stop Date: 01/14/23 Status: Ordered Start: 09-13-2022 End: 12-12-2022 lisdexamfetamine 70 mg oral capsule Dose : 70 mg = 1 cap(s), Oral, qAM, DNF until 10/13/2022 Oaars reviewed., # 30 cap(s), 0 Refill(s), Pharmacy: [facility]/pharmacy #[id number], Attention deficit disorder, 190.5, cm, 09/13/22 15:59:00 EST, Height, 125.6 Start Date: 10/13/22 Stop Date: 11/12/22 Status: Ordered Start: 03-15-2022 End: 04-29-2022 Vyvanse 70 mg oral capsule D ose : 70 mg = 1 cap(s), Oral, qAM, May fill 05/28/2022, # 30 cap(s), 0 Refill(s), Pharmacy: [facility]/pharmacy #[id number], Attention deficit disorder Adult ADHD (attention deficit hyperactivity disorder), 192, cm, 03/30/22 15:13:00 EDT, Height, 124.9, kg, ... Start Date: 03/30/22 Stop Date: 04/29/22 Status: Ordered Start: 09-28-2021 End: 01-28-2022 Vyvanse 70 mg oral capsule D ose : 70 mg = 1 cap(s), Oral, qAM, # 30 cap(s), 0 Refill(s), Pharmacy: [facility]/pharmacy #[id number], Attention deficit disorder, 189, cm, 12/29/21 14:07:00 EDT, Height, 123.1, kg, 12/29/21 14:07:00 EDT, Dosing Weight Start Date: 12/29/21 Stop Date: 01/28/22 Status: Ordered Start: 06-29-2021 End: 07-29-2021 Vyvanse 70 mg oral capsule D ose : 70 mg = 1 cap(s), Oral, qAM, May fill 08/27/2021, # 30 cap(s), 0 Refill(s), Pharmacy: [facility]/pharmacy #[id number], Attention deficit disorder, 189, cm, 06/29/21 9:38:00 EST, Height, 125.4, kg, 06/29/21 9:38:00 EST, Dosing Weight Start Date: 06/29/21 Stop Date: 07/29/21 Status: Ordered Start: 01-16-2019 End: 12-06-2018 take 1 capsule by mouth once daily in the morning lisdexamfetamine (VYVANSE) 70 MG capsule Indications: Attention deficit hyperactivity disorder (ADHD), predominantly inattentive type Take 1 (one) capsule (70 mg total) by mouth every morning (Days supply per fill: 30) Start: 01/16/19. 30 capsule 0 01/16/2019 12/06/2018 Discontinued (Duplicate order) Start: 11-15-2018 End: 12-19-2019 take 1 capsule by mouth once daily in the morning lisdexamfetamine (VYVANSE) 70 MG capsule Indications: Attention deficit hyperactivity disorder (ADHD), predominantly inattentive type Take 1 (one) capsule (70 mg total) by mouth every morning (Days supply per fill: 30) Start: 12/17/18. 30 capsule 0 2018 12/19/2019 Discontinued Start: 10-15-2018 End: 09-14-2018 take 1 capsule by mouth once daily in the morning lisdexamfetamine (VYVANSE) 70 MG capsule Indications: Attention deficit hyperactivity disorder (ADHD), predominantly inattentive type Take 1 (one) capsule (70 mg total) by mouth every morning (Days supply per fill: 30) Start: 10/15/18. 30 capsule 0 10/15/2018 09/14/2018 Discontinued Start: 08-12-2018 End: 09-16-2018 take 1 capsule by mouth once daily Start: 07-13-2018 End: 07-05-2018 take 1 capsule by mouth once daily in the morning lisdexamfetamine (VYVANSE) 70 MG capsule Indications: Attention deficit hyperactivity disorder (ADHD), predominantly inattentive type Take 1 (one) capsule (70 mg total) by mouth every morning (Days supply per fill: 30) Start: 07/13/18. 30 capsule 0 07/13/2018 07/05/2018 Discontinued Start: 10-16-2017 End: 07-05-2018 take 1 capsule by mouth once daily in the morning VYVANSE 70 MG capsule TAKE 1 CAPSULE BY MOUTH EVERY MORNING 0 10/16/2017 Active Start: 08-20-2017 End: 06-21-2017 take 1 capsule by mouth once daily in the morning lisdexamfetamine (VYVANSE) 70 MG capsule Take 1 (one) capsule (70 mg total) by mouth every morning. 30 capsule 0 08/20/2017 06/21/2017 Discontinued Start: 07-21-2017 End: 06-21-2017 take 1 capsule by mouth once daily in the morning lisdexamfetamine (VYVANSE) 70 MG capsule Take 1 (one) capsule (70 mg total) by mouth every morning. 30 capsule 0 07/21/2017 06/21/2017 Discontinued Start: 07-12-2017 End: 02-27-2018 take 1 capsule by mouth once daily in the morning lisdexamfetamine (VYVANSE) 70 MG capsule Take 1 (one) capsule (70 mg total) by mouth every morning. 30 capsule 0 09/12/2017 10/12/2017 Active Start: 07-12-2017 End: 06-21-2017 take 1 capsule by mouth once daily in the morning lisdexamfetamine (VYVANSE) 70 MG capsule Take 1 (one) capsule (70 mg total) by mouth every morning. 30 capsule 0 07/12/2017 06/21/2017 Discontinued Start: 05-25-2017 End: 06-24-2017 take 1 capsule by mouth once daily in the morning lisdexamfetamine (VYVANSE) 70 MG capsule Take 1 (one) capsule (70 mg total) by mouth every morning. 30 capsule 0 05/25/2017 06/21/2017 Discontinued Start: 04-24-2017 End: 03-24-2017 take 1 capsule by mouth once daily in the morning lisdexamfetamine (VYVANSE) 70 MG capsule Take 1 (one) capsule (70 mg total) by mouth every morning. 30 capsule 0 04/24/2017 03/24/2017 Discontinued Start: 02-21-2017 End: 03-24-2017 take 1 capsule by mouth once daily in the morning lisdexamfetamine (VYVANSE) 70 MG capsule Take 1 (one) capsule (70 mg total) by mouth every morning. 30 capsule 0 03/24/2017 03/24/2017 Discontinued lutein 20 mg oral capsule (15 sources) Start: 01-13-2020 End: 05-08-2025 take 1 capsule by mouth once daily Lutein 20 MG capsule Discontinued 20 mg PO DAILY January 13, 2020 12:00am May 08, 2025 9:19am take 1 tablet by mouth once laurie y lutein 20 mg Tab Take 20 mg by mouth daily . 0 Active mecobalamin 1 mg sublingual tablet (6 sources) Start: 05-22-2020 End: 05-08-2025 Mecobalamin (Vitamin B12) 1, 000 mcg tablet,disintegrating Discontinued 1000 ug SL DAILY May 22, 2020 12:00am May 08, 2025 9:[address] tablet under tongue and allow to dissolve for at least30 secs before swallowing Start: 05-22-2020 Mecobalamin (V itamin B12) Active 1000 MCG SL DAILY May 21, 2020 11:[address]pm place tablet under tongue and allow to dissolve for at least30 secs before swallowing meloxicam 15 mg oral tablet (6 sources) Nonsteroidal Anti-inflammatory Drug Start: 06-02-2016 End: 10-04-2017 take 1 tablet by mouth once daily meloxicam (MOBIC) 15 MG tablet Take 1 (one) tablet (15 mg total) by mouth daily. 90 tablet 3 03/24/2017 10/04/2017 Discontinued methylcellulose 2000 mg powder for oral suspension (20 sources) Start: 09-05-2018 End: 05-08-2025 Methylcellulose (Laxative) powder Discontinued 3 tbsp PO DAILY October 25, 2023 3:34pm May 08, 2025 9:19am methylcellulose (CITRUCEL, SUCROSE,) oral powder Take by mouth 2 (two) times a day . 0 Active methylsulfonylmethane 1000 mg oral tablet (20 sources) Start: 09-05-2018 End: 05-08-2025 take 1 tablet by mouth once Methylsulfonylmethane (Msm) 1,000 mg tablet Discontinued 1000 mg PO ONCE May 22, 2020 12:00am October 25, 2023 3:35pm Start: 09-05-2018 take 1200 mg by mout h once daily Methylsulfonylmethane Active 1200 MG PO daily September 05, 2018 12:00am End: 02-06-2020 take 1200 mg by mouth once daily METHYLSULFONYLMETHANE (MSM ORAL) Take 1,200 mg by mouth daily. 0 02/06/2020 Discontinued (Patient's Request) take 1200 mg by mout h once daily METHYLSULFONYLMETHANE (MSM ORAL) Take 1,200 mg by mouth daily. 0 Active take 1200 mg by mout h once daily METHYLSULFONYLMETHANE (MSM ORAL) Take 1,200 mg by mouth daily. Active 2 ml midazolam 1 mg/ml injection (2 sources) Benzodiazepine Start: 06-17-2020 End: 06-17-2020 midazolam (VERSED) 2 MG/2ML injection Start: 06-17-2020 midazolam (OSMAN SED) injection 1 mg pravastatin sodium 20 mg oral tablet (20 sources) HMG-CoA Reductase Inhibitor Start: 05-22-2020 End: 10-25-2023 Pravastatin 20 mg tablet Discontinued NMA PO May 22, 2020 12:00am October 25, 2023 3:37pm Start: 02-06-2020 End: 04-13-2026 take 1 tablet by mouth at bedtime Pravastatin 20 mg tablet Discontinued 20 mg PO AT BEDTIME October 25, 2023 3:35pm November 05, 2024 10:50am Start: 07-05-2018 End: 07-05-2019 take 1 tablet by mouth once daily in the evening pravastatin (PRAVACHOL) 20 MG tablet Take 1 (one) tablet (20 mg total) by mouth every evening . 30 tablet 11 07/05/2018 04/24/2019 Discontinued (Reorder (Suppress CancelRx Message to Pharmacy)) predniSONE 5 mg oral tablet (12 sources) Start: 06-20-2018 End: 12-06-2018 take 1 tablet by mouth twice daily Prednisone 5 mg tablet Discontinued 5 mg PO TWICE A DAY September 05, 2018 1:00am September 05, 2018 10:04am Psyllium Husk 3 gram/3 gram powder (4 sources) Start: 05-22-2020 End: 10-25-2023 Psyllium Husk 3 gram/3 gram powder Discontinued 3 g PO DAILY May 22, 2020 12:00am October 25, 2023 3:36pm resveratrol 100 mg oral capsule (20 sources) Start: 05-22-2020 End: 10-27-2022 take 1 capsule by mouth once daily Resveratrol 100 mg capsule Discontinued 100 mg PO DAILY May 22, 2020 12:00am October 27, 2022 3:54pm Resveratrol 250 MG CAPS Take 1 tablet by mouth 0 Active selenium 200 mcg capsule (2 sources) Start: 09-05-2018 End: 07-27-2023 take 1 capsule by mouth once daily selenium 200 mcg capsule Discontinued 200 MCG PO DAILY September 05, 2018 12:00am July 27, 2023 2:04pm Start: 09-05-2018 take 1 capsule by mo [facility] once daily selenium 200 mcg capsule Active 200 MCG PO DAILY September 05, 2018 1:00am silver sulfADIAZINE 10 mg/ml topical cream (5 sources) Sulfonamide Antibacterial Start: 07-27-2023 End: 10-25-2023 Silver Sulfadiazine 1 % cream Discontinued NMA TOPICAL July 27, 2023 1:00am October 25, 2023 3:36pm Start: 07-27-2023 Silver Sulfadi azine Active APPLIC TOPICAL July 27, 2023 12:00am tamsulosin hydrochloride 0.4 mg oral capsule (1 source) alpha-Adrenergic Bertin Start: 01-07-2022 End: 02-06-2022 Flomax 0.4 mg oral capsule Dose : 0.4 mg = 1 cap(s), Oral, qDay, # 30 cap(s), 0 Refill(s), Pharmacy: [facility]/pharmacy #[id number], 189, cm, 12/29/21 14:07:00 EDT, Height Start Date: 01/07/22 Stop Date: 02/06/22 Status: Ordered triamcinolone acetonide 0.25 mg/ml topical cream (18 sources) Corticosteroid Start: 09-05-2018 End: 10-27-2022 Triamcinolone Acetonide 0.025 % cream Discontinued 1 NMA TOPICAL TWICE A DAY September 05, 2018 1:00am October 27, 2022 3:54pm Start: 08-17-2018 End: 10-27-2022 Triamcinolone Acetonide Disc ontinued 1 APPLIC TOPICAL TWICE A DAY September 05, 2018 12:00am October 27, 2022 2:54pm Start: 09-21-2006 End: 07-05-2018 triamcinolone (KENALOG) 0.1 % cream Apply 0.1 cm topically 2 (two) times a day. 45 g 4 07/15/2016 12/28/2017 Discontinued ziwk-gybg-emo-agv-glq-pcug-h or [phone] mg Tab (6 sources) End: 12-19-2019 take 1 tablet by mouth once daily onon-yusr-aer-lik-fsa-cpqp-hor [phone] mg Tab Take 1 tablet by mouth daily TUMERIC OTC . 0 12/19/2019 Discontinued take 1 tablet by doug th once daily zojc-xhux-nst-azn-sfo-yuag-hor 100-100-1 00-125 mg Tab Take 1 tablet by mouth daily TUMERIC OTC . 0 Active Problems Active Problems Problem Classification Problem Date Documented Date Episodic/Chronic Acute cerebrovascular disease (15 sources) Embolic stroke; Translations: [CVA - cerebrovascular accident due to cerebral artery occlusion] Onset: 04-11-2025 04-13-2025 Chronic Comment on above: Pt Lif[facility]lighted from [facility] to [facility] for acute ischemic stroke. Anxiety disorders (13 sources) Mixed anxiety and depressive disorder 06-28-2021 Chronic Aortic; peripheral; and visceral artery aneurysms (8 sources) Aneurysm of iliac artery 06-08-2022 Chronic Attention-deficit, conduct, and disruptive behavior disorders (20 sources) Attention deficit hyperactivity disorder, predominantly inattentive type; Translations: [Attention-deficit hyperactivity disorder, predominantly inattentive type] Onset: 05-01-2016 Resolved: 09-26-2016 06-21-2017 Chronic Blindness and vision defects (7 sources) Right homonymous hemianopsia; Translations: [Homonymous bilateral field defects, right side] Onset: 05-08-2025 Episodic Calculus of urinary tract (16 sources) Kidney stone; Translations: [Calculus of kidney] 12-29-2021 Episodic Cardiac dysrhythmias (3 sources) Premature atrial contraction; Translations: [Atrial premature depolarization] Onset: 05-02-2025 04-18-2025 Chronic Conduction disorders (17 sources) Right bundle branch block; Translations: [Unspecified right bundle-branch block] Onset: 05-02-2025 07-06-2021 Chronic Diabetes mellitus with complications (20 sources) Microalbuminuric diabetic nephropathy; Translations: [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 2 diabetes mellitus] Onset: 10-04-2017 10-04-2017 Chronic Diabetes mellitus without complication (20 sources) Diabetes mellitus; Translations: [Type 2 diabetes mellitus without complication] Onset: 12-21-2016 12-21-2016 Chronic Disorders of lipid metabolism (20 sources) Hyperlipidemia; Translations: [Mixed hyperlipidemia] Onset: 05-01-2016 05-01-2016 Chronic Essential hypertension (17 sources) Hypertensive disorder; Translations: [Essential (primary) hypertension] Onset: 12-22-2022 06-28-2021 Chronic Genitourinary symptoms and ill-defined conditions (4 sources) Nocturia; Translations: [Nocturia] Episodic Heart valve disorders (9 sources) Aortic valve stenosis; Translations: [Nonrheumatic aortic (valve) stenosis] Onset: 12-18-2024 10-27-2022 Chronic Hyperplasia of prostate (4 sources) Benign prostatic hypertrophy without outflow obstruction; Translations: [Hypertrophy (benign) of prostate without urinary obstruction and other lower urinary tract symptom (LUTS)] Chronic Inflammatory conditions of male genital organs (6 sources) Orchitis and epididymitis; Translations: [Epididymo-orchitis] 10-16-2020 Episodic Osteoarthritis (20 sources) Osteoarthritis of knee; Translations: [Arthritis] Onset: 08-24-2016 06-21-2017 Chronic Other and ill-defined heart disease (4 sources) Left ventricular hypertrophy; Translations: [Cardiomegaly] Onset: 07-08-2021 Chronic Other ear and sense organ disorders (20 sources) Hearing loss; Translations: [Unspecified hearing loss, unspecified ear] Onset: 05-01-2016 05-01-2016 Chronic Other hereditary and degenerative nervous system conditions (12 sources) Restless legs 09-28-2021 Chronic Other inflammatory condition of skin (20 sources) Arthropathic psoriasis, unspecified; Translations: [Psoriatic arthritis] Onset: 08-24-2016 03-30-2018 Chronic Other inflammatory condition of skin (13 sources) Psoriasis 07-06-2021 Chronic Other nervous system disorders (1 source) Cubital tunnel syndrome; Translations: [Cubital tunnel syndrome on left] Chronic Other nervous system disorders (3 sources) Ataxia; Translations: [Ataxia, unspecified] Onset: 04-12-2025 04-13-2025 Episodic Other nervous system disorders (1 source) Carpal [...] Chronic Other nutritional; endocrine; and metabolic disorders (10 sources) Obesity; Translations: [Obesity, unspecified] Onset: 08-24-2016 06-13-2018 Chronic Other nutritional; endocrine; and metabolic disorders (1 source) Obesity, unspecified; Translations: [Obesity, unspecified] 07-27-2023 Chronic Other nutritional; endocrine; and metabolic disorders (1 source) Other obesity due to excess calories; Translations: [Other obesity due to excess calories] Onset: 11-14-2024 Chronic Other nutritional; endocrine; and metabolic disorders (1 source) Body mass index (BMI) 33.0-33.9, adult; Translations: [Body mass index [BMI] 33.0-33.9, adult] Onset: 11-14-2024 Chronic Other screening for suspected conditions (not mental disorders or infectious disease) (20 sources) Imaging of thorax abnormal; Translations: [Abnormal findings on diagnostic imaging of other specified body structures] Onset: 08-17-2018 08-17-2018 Chronic Other screening for suspected conditions (not mental disorders or infectious disease) (13 sources) Imaging of thorax abnormal; Translations: [Electrocardiogram abnormal] Onset: 08-17-2018 08-17-2018 Episodic Other skin disorders (12 sources) H/O: psoriasis 02-26-2017 Episodic Peripheral and visceral atherosclerosis (3 sources) Peripheral vascular disease; Translations: [Peripheral vascular disease, unspecified] 12-18-2024 Chronic Residual codes; unclassified (15 sources) Obstructive sleep apnea syndrome; Translations: [Obstructive sleep apnea (adult) (pediatric)] Chronic Residual codes; unclassified (2 sources) Obstructive sleep apnea (adult) (pediatric); Translations: [Obstructive sleep apnea (adult)(pediatric)] Onset: 11-14-2024 07-27-2023 Chronic Residual codes; unclassified (20 sources) Transient altered mental status; Translations: [Disorientation, unspecified] Onset: 02-06-2020 02-06-2020 Episodic Residual codes; unclassified (1 source) History of decompression of median nerve; Translations: [S/P carpal tunnel release] Episodic Residual codes; unclassified (1 source) Cognitive perceptual pattern; Translations: [Unspecified symptoms and signs involving general sensations and perceptions] 04-11-2025 Episodic Transient cerebral ischemia (5 sources) Transient cerebral ischemia; 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] Chronic Unclassified (20 sources) Sleep apnea; Translations: [Sleep apnea, unspecified] Onset: 05-01-2016 05-01-2016 Chronic Unclassified (6 sources) Patient encounter status 12-22-2022 Unclassified (2 sources) H53.461 - Homonymous bilateral field defects, right side,I63.9 - Cerebral infarction, unspecified,E11.9 - Type 2 diabetes mellitus without complications Past or Other Problems Problem Classification Problem [...] examination without abnormal findings] Onset: 03-24-2017 Episodic Skin and subcutaneous tissue infections (18 sources) Cellulitis of lower leg; Translations: [Cellulitis of right lower limb] Onset: 06-13-2018 Resolved: 11-17-2018 06-13-2018 Episodic Spondylosis; intervertebral disc disorders; other back problems (20 sources) Low back pain; Translations: [Low back pain] Onset: 10-04-2017 10-04-2017 Episodic Varicose veins of lower extremity (20 sources) Varicose veins of lower extremity; Translations: [Asymptomatic varicose veins of unspecified lower extremity] Onset: 03-24-2017 03-24-2017 Episodic Results Test Name Value Interpretation Reference Range Facility PT D/C Summary (1)on 025 PT D/C Summary (1) [facility] [address] [place] [address] [address] [place] [address] / REHABILITATION SERVICES DISCHARGE SUMMARY MR#: [id number] Acct: [id number] Name: NASH FERGUSON Rep #: [id number] : 1950 74 From: [address] DPT Referring Dr.: Dr. Abby Alonso DO Status: R EG R Insurance: [employer] PPO [employer] Discharge Summary D/C summary: It has been my pleasure to treat NASH FERGUSON referred by Dr. Abby Alonso DO, with the diagnosis of CVA for a total of 6 visit(s). Discharge Date: 06/03/25 Please see the following information for a summary of their discharge status. Subjective Subjective: Pt. reports overall doing very well. No major issues. Pt. pleased with progress. He reports being 90% better overall. Overall Improvement % Improvement: 90 Objective Objective/Function: Pt. is overall doing much better. He did great on the TUG, 6 min walk test and with stair negotiation Pt. negotiated 1 flight without HR without issues. GAIT: normal no issues noted. He is to continue with walking his dog and exercises x3 days per week. Pt. consents. Overall he is doing much better. pt. will be DC from PT at this point in time. Goals Goal 1:: LTG: Pt. to have TUG under 10seconds. Goal Progress: Goal Met Goal 2:: LTG: Pt. to negotiate stairs with no HR with reciprocal pattern. Goal Progress: Goal Met Goal 3:: LTG: Pt. to have score of 30/30 on FGA indicating improved balance. Goal Progress: Goal Met Plan Plan: Pt. has met all goals and will be DC from PT this date. D/C Information d/c sentence: If there are questions or concerns regarding this patient's physical therapy, please feel free to call me at [phone]. Thank you for the referral of this patient. Sincerely, Tello Cobos Sipos, DPT Balance/Gait/Functiona l tests Balance/Special Test Scores Functional Gait Assessment Score: 30 % Disability: 0 Lower Extremity Functional Score: 67 TUG Test Time Seconds: 6.68 Tug Test: <10 sec.=free mobile 30 Second Chair Rise Test Seconds: 13 6 Minute Walk Test: 1632 feet. Improvement % Improvement: 90 06/03/25 1504 CC: SENIOR ACCOUNTS PAYABLE CLERK-C Josefina Zavaleta; Dr. Abby Alonso, CLS Signed Normal [facility] Brain without Contraston Brain without Contrast [facility] Imaging Services [address] [place] [id number] Brain without Contrast MR#: [id number] Acct: [id number] Name: NASH FERGUSON Rep #: [id number] : 1950 M 74 From: Danny Silverman MD PCP: Dr. Abby Alonso, Status: REG CLI Study: Brain without Contrast Date of Exam: 05/14/25 Exam# [id number] Ordering Dr: Jeremy Frias SENIOR ACCOUNTS PAYABLE CLERK-C PROCEDURE: MRI BRAIN WITHOUT CONTRAST 05/14/2025 REASON FOR EXAM: STROKE TECHNIQUE: Procedure Code: MRIBR Modality: MR Procedure: BRAIN WITHOUT CONTRAST Multiplanar and multisequential MRI of the brain was performed without contrast. COMPARISON: None available. FINDINGS: Small foci of diffusion restriction compatible with acute-subacute infarcts in the posterolateral left thalamus, and the left parieto-occipital peritrigonal white matter. No large territorial infarct. Small area of chronic infarct with encephalomalacia and gliosis and persistent pseudo laminar necrosis in the paramedian left occipital lobe, left [employer] vascular territory. Mild chronic microangiopathic changes elsewhere in the supratentorial white matter. Mild age-appropriate generalized brain parenchymal volume loss. Normal ventricular caliber. Major intracranial vascular flow voids appear preserved. No evidence of acute intracranial hemorrhage, extra-axial collection, or mass-effect. Unremarkable orbits. Well-aerated paranasal sinuses and mastoid air cells. MRI/Brain without Contrast IMPRESSION: Small foci of acute-subacute lacunar infarcts involving the left thalamus and left parieto-occipital peritrigonal white matter. Chronic left occipital lobe infarct. No intracranial hemorrhage or mass-effect. Reading Location: [id number] CC: CLARISSA Frias; Dr. Abby Alonso DO Contour Sander: Signed Normal [facility] Cardiology Visit Reporton Cardiology Visit Report [facility] [facility] [place] [address] OFFICE VISIT Date of Service: 05/13/25 MR#: [id number] Acct: [id number] Name: NASH FERGUSON Rep #: [id number] : 1950 Provider: CLARISSA mariano Age/Sex: 74/M [place] [facility] [place] Status: Signed HPI HPI History of Present Illness Details: 74-year-old man with no previous cardiac history other than hypertension anxiety diabetes mellitus who presents for evaluation. He denied any chest pain or shortness of breath or paroxysmal nocturnal dyspnea or pedal edema he has not had any neck arm or jaw discomfort suggest angina. He thinks he might have been told at some point that he had a cardiac murmur. He did undergo an echocardiogram in 2019 which demonstrated mild calcification of the aortic valve leaflets. 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 He was seen at [facility] in April 2025 for CVA. Workup showed acute left occipital pole infarction and a prior left basal ganglia infarct. Imaging also showed small subclinical hemorrhagic conversion. It is noted he had a normal echocardiogram and A1c. He was started on dual antiplatelet therapy and added second lipid lowering agent to reduce LDL. Plan was to continue dual antiplatelet therapy for 21 days and then continue aspirin 81 mg daily. Event monitor was ordered upon discharge. It is recommended follow-up with neurologist and consider starting DOAC. He has reduced peripheral vision with his right eye post CVA. He denies chest, arm, jaw, or neck discomfort. He denies palpitations. He denies bilateral lower extremity edema, but states edema in right lower leg. He denies claudication. He denies shortness of breath with activity, shortness of breath at rest, orthopnea, or PND. He denies chronic cough. He denies significant, sudden weight gain. He denies lightheadedness, dizziness, near-syncope, or syncope. He denies blood in urine, blood in stool, or epistaxis. He denies fever with chills. He denies myalgia. He states fatigue. His exercise level has remained stable. His EKG today demonstrates sinus tachycardia with a right bundle branch block which is chronic and no acute changes. Intake Vital Signs 12/18/24 15:36 05/13/25 07:39 Height 6 ft 4 in 6 ft 4 in Weight: 262 lb BMI 31.8 BP 134/73 H Blood Pressure Location Lt brachial Position Sitting Respiration 18 Pulse 97 Pulse Source Monitor Pulse Oximetry (%) 95 Intake Visit Reasons: S/P METRO 04/16 Slurry Blender Required: No Is patient in pain?: No Allergies etanercept (From Enbrel) Allergy (Verified 05/13/25 10:14) Rash methylprednisolone Allergy (Verified 05/13/25 10:14) Rash rivaroxaban (From Xarelto) Adverse Reaction (Intermediate, Verified 05/13/25 10:14) Rash cephalexin (From Keflex) Adverse Reaction (Mild, Verified 05/13/25 10:14) Rash clindamycin Adverse Reaction (Mild, Verified 05/13/25 10:14) GI upset Medications ???Medication ???Instructions ???Recorded ???Confirmed ???Type ascorbic acid (vitamin C) 500 mg 1,000 mg PO QDAY 09/05/18 05/13/25 History capsule lisdexamfetamine 70 mg capsule 70 mg PO DAILY 09/05/18 05/13/25 H istory (Vyvanse) losartan 25 mg tablet (Cozaar) 25 mg PO DAILY 09/05/18 05/13/25 H istory multivitamin (Multiple Vitamins 1 tab PO DAILY 09/05/18 05/13/25 H istory tablet) sertraline 100 mg tablet (Zoloft) 100 mg PO DAILY 09/05/18 05/13/25 History zinc 50 mg tablet 50 mg PO DAILY 09/05/18 05/13/25 H istory lysine 500 mg tablet 500 mg PO DAILY 10/27/22 05/13/25 History blood sugar diagnostic (Accu-Chek #10 ea 07/27/23 11/05/24 History Guide test strips) blood-glucose meter (Accu-Chek #1 ea 07/27/23 11/05/24 History Guide Me Glucose Meter) lancets (Accu-Chek Softclix #100 ea 07/27/23 11/05/24 History Lancets) acetaminophen 500 mg capsule 1,000 mg PO TID PRN 10/25/2305/13 History docusate sodium 100 mg capsule 100 mg PO DAILY 10/25/23 05/13/25 History (Colace) metformin 500 mg tablet,extended 500 mg PO QDAY 10/25/23 05/13/25 H istory release 24 hr aspirin 81 mg tablet,delayed 81 mg PO QDAY 04/18/25 05/13/25 Hi story release (Adult Aspirin Regimen) rosuvastatin 20 mg tablet 20 mg PO QDAY 05/08/25 05/13/25 Hi story selenium 200 mcg capsule 200 mcg PO QDAY 05/08/25 05/13/25 History Ejection fraction %: 65 Have you fallen in the past year?: No [facility] (Reviewed 05/13/25 @ 10:28 by Matt Rodriguez SENIOR ACCOUNTS PAYABLE CLERK, SENIOR ACCOUNTS PAYABLE CLERK-C) CVA (cerebral vascular accident) (04/11/25) RLS (restless legs syndrome) Kidney stones Iliac aneurysm Essential hypertension Hyperlipidemia Anxiety M (more content not included)... Normal [facility] Neurology Visit Reporton Neurology Visit Report [facility] [address] [place], [place] [address] OFFICE VISIT Date of Service: 05/08/25 MR#: [id number] Acct: [id number] Name: NASH FERGUSON Rep #: [id number] : 1950 Provider: CLARISSA taylor Age/Sex: 74/M Location[place] [facility] [place] Status: Signed HPI HPI Chief Complaint: Establish care Details: History of present illness: Mr. Ferguson is a 74-year-old right handed male who presents to neurology today 05/08/2025 to establish care following hospitalization for an acute ischemic stroke in the left occipital pole. He is accompanied today by his . Pertinent past medical history includes diabetes type 2, hypertension, hyperlipidemia, restless leg syndrome, anxiety/depression/ADH D, JAYA on CPAP, psoriasis, osteo/psoriatic arthritis, iliac aneurysm, kidney stones, and right bundle branch block. Family history includes mother with meningoma and dementia. His father and brother had myotonic dystrophy in which was the cause of in their case. The patient states he has been genetically screened and he fortunately did not inherit this gene. Hospital course: On 04/11/2025, patient presented to [facility] with binocular right hemianopsia and right-sided weakness/numbness. He was life flighted to [place] from [facility]. He was out of the therapeutic window for TNK administration. Patient was prescribed aspirin 81 mg daily but stopped taking at that time due to bruising. Neuroimaging is not available for personal review but the reports are as follows: CT brain: Small acute???subacute infarcts in the left occipital pole without significant mass effect; possible trace petechial hemorrhage at the infarct margins vs regions of cortical sparing CTA head/neck: Age-indeterminate infarct versus dilated perivascular space in the left basal ganglia, no LVO, no ICA stenosis MRI brain was not conducted. TTE with LVEF of 65%, no evidence of interatrial shunt. He has mild aortic valve stenosis and follows with [facility] (Dr. Poe). LDL 148; cholesterol 210; TG 106; HDL 48; hemoglobin A1c 6.6% He was discharged on 04/13/2025. Patient completed DAPT x 21 days followed by aspirin 81 mg monotherapy. He is on rosuvastatin for hyperlipidemia (previously on pravastatin). A 30-day cardiac event monitor was also ordered which the patient currently has in place. He is participating in outpatient PT/OT/[facility]. On exam today, patient has persistent right homonymous hemianopia which is congruous and macula sparing, consistent with his left occipital cortex lesion. Patient appears to have a recent memory defect and his states that he is frequently forgetful. He has a hard time recalling events and information asked during his assessment. He also appears to have mild expressive aphasia and difficulty with word finding. This appears to have been present prior to this acute stroke but are more notable now. Patient possibly had TIAs in the past per 's report. He does have a history of anxiety, depression, and ADHD. He is on a stimulant medication (Vyvanse 70mg) for his ADHD and sertraline for depression/anxiety. Patient also has a history of psoriasis and osteo/psoriatic arthritis. He has large psoriatic patches throughout his upper extremities that are visible. He has been off biologic agents for approximately 6 years. Psoriasis is an additional risk factor for stroke. ROS: General: No fatigue. No recent weight loss/gain. No recent illness. No fevers. No recent falls. Neuro: No headaches. No dizziness. Diabetic neuropathy to his feet. No weakness. No tremors. Psych: No insomnia or hypersomnia. Intermittent agitation. Fluctuating anxiety/depressive symptoms. Ongoing memory difficulties. Cardio: No palpitations. No chest pain or discomfort. No edema. Respiratory: Former smoker with cessation >30 years ago. No cough. No shortness of breath. No wheezing. Musculoskeletal: No use of assistive devices. No neck pain. No back pain. History of bilateral hip replacement. History of right knee arthroplasty. History of carpal tunnel release surgery. HEENT: Bilateral hearing loss, has hearing aids in place. No blurry vision, he wears glasses. No diplopia. No dysphagia. GI: No hematochezia. No NVD. No constipation. No abdominal pain or discomfort. : No hematuria. No frequency or urgency. No incontinence. No dysuria. History of renal calculi with need for urethral dilation. Skin: Scattered ecchymosis. Psoriasis. No wounds, rashes, or lesions. PHYSICAL EXAM: Constitutional: Well-developed, well-nourished right-handed male in no acute distress. Psych: Cooperative. Judgement and insight good. HE (more content not included)... Normal [facility] Inital Evaluation (1) - PTon 05-07-2025 Inital Evaluation (1) - PT [facility] Physical Therapy [address] [place] [address] / REHABILITATION SERVICES INITIAL EVALUATION MR#: [id number] Acct: [id number] Name: NASH FERGUSON Rep #: [id number] : 1950 74 From: Tello St DPT Referring Dr.: Dr. Abby Alonso DO Status: R EG RCR Insurance: [employer] PPO CHAMPVA Patient's Visit Information Visit Information Visit Information: NASH FERGUSON is a 74 year old M referred to Physical Therapy by Dr. Abby Alonso DO with a diagnosis of CVA. Date of Evaluation: 04/24/25 Physical Therapist: Tello St DPT Visit Plan Frequency: 1-2x /Week Duration: 2 Months Plan: Dynamic balance, high level balance activities. Subjective Subjective: Pt. is here today for his initial evaluation with diagnosis of CVA, embolism DOI: 04/11/25. Pt. reports having a R sided visual cut. He is also having some difficulty with word finding and describing activities. Pt. reports having issues with the right side of his body. Pt. is now back at home. Pt. reports having some difficulties, but mostly due to visual. Pt. reports no dizziness, no N/T. No falls since being home. Pt. reports he was using a cane, does not feel like he needs it. He did have a L wrist carpectomy which makes it difficulty to use. Pt. is hopeful to get back to all recreational walking and activities without limitations. Objective Objective: POSTURE: Pt. has fairly normal posture in stance. PALPATION: No issues. NEURO: Normal throughout BLEs. ROM: PT. has normal ROM throughout. Slight bilateral HS tightness. MMT: no myotomal weakness. 5/5 throughout. TU.8sec no AD FGA 22/30 STAIRS: Pt. was able to complete with recripocal pattern with 1 HR without LOB Balance/Special Test Scores Lower Extremity Functional Score: 62 30 Second Chair Rise Test Seconds: 14 Goals Goal 1:: LTG: Pt. to have TUG under 10seconds. Goal Time Frame: 2-4 Weeks Goal 2:: LTG: Pt. to negotiate stairs with no HR with reciprocal pattern. Goal Time Frame: 2-4 Weeks Goal 3:: LTG: Pt. to have score of 30/30 on FGA indicating improved balance. Goal Time Frame: 4-6 Weeks Rehabilitation Potential Physical Therapy Diagnosis: Pt. has signs and symptoms consistent with CVA. He has some slight imbalance, but is overall doing well. He has a R sided visual neglect as well limiting some of his stability. Rehabilitation Potential: Excellent Anticipated Interventions Patient/Client Instruction: Educate patient on: Condition, Plan of Care, Risk Factors and Benefits of Fitness Program For the Purpose of:: To foster healthy habits, To improve decision making, To facilitate caregiver knowledge and To improve self management Therapeutic Exercise to Include: Strength training, Endurance training and Balance training For the Purpose of:: To improve gait and locomotor functions, To improve health of tissue, To decrease soft tissue restriction, To increase flexibility/ROM, To improve endurance and To improve balance Text: Thank you for the opportunity to evaluate your patient. For Medicare and Medicare HMO plans, please review the plan of care and approve it. It will need to be FAXED BACK to us at [phone] for Medicare purposes. For Medicare only, by signing this I certify the plan of care. Please let me know if there are questions or concerns regarding this plan of care. Physician Signature: Date:__ 05/07/25 1353 CC: CLARISSA Zavaleta; Dr. Abby Alonso DO CLS Signed Normal [facility] OT General Evaluationon 04-02 OT General Evaluation [facility] Occupational [place] [id number] [facility] [place] [address] / REHABILITATION SERVICES INITIAL EVALUATION MR#: [id number] Acct: [id number] Name: NASH FERGUSON Rep #: [id number] : 1950 74 From: Joy LOMBARDO CHT Referring Dr.: Dr. Abby Alonso DO Status: R EG RCR Insurance: [facility] MEDICARE PPO Eval Date: Patient's Visit Information Visit Information Visit Information: NASH FERGUSON is a 74 year old M, referred to Occupational Therapy by Dr. Abby Alonso DO, with a diagnosis of CVA. Date of Evaluation: 04/22/25 Occupational Therapist: HELDER Valera/RADHA Cobos Subjective Subjective: This 74 year old male was seen for OT eval dx of CVA. States this happened on 04/11/25. Pt states his right side went numb and he could not move his right side. pt states he went to the hospital. pt states now his vison is compromised from his stroke and feels like his right dominate hand does not move the way it should- this makes grooming tasks and daily tasks more difficult. pt would like to return to using his right dominate hand at his PLOF. 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 Left: 25.97 sec. In-Hand Manipulation Finger to Palm Translation: Moderate - Right and Normal - Left Palm to Finger Translation: Moderate - Right and Normal - Left Stroke Specific Quality of Life Total SS-QOL Score: 194 Goals Goal:: pt will demo a improved 9-hole peg test by decreasing speed by 10 sec. demo increase in pts FMS by d.c pt will report IND grooming without compensation by d/c pt will demo the ability to write legibly within line boundaries by d.c Goal:: pt will demo the ability to visually scan environment to decrease running into objects-oneill or doorways by d/c Goal:: pt will demo IND scan to right side to improve awareness of right side of body by d.c Rehabilitation General Assessment: pt demo with decrease in right UE strength and FM coordination limiting his IND with ADls and IADls. pt would benefit from skilled OT services 2-3x week for 6 weeks to assist pt in reaching his maximal rehab potential. Today therapist ed. pt on POC based on insurance approval pt demo understanding and agreed to POC. Rehabilitation Potential: Good Anticipated Interventions Anticipated Interventions: A/AAROM/PROM, Strengthening, Fine Motor Coord/Rebel, Neuro Reeducation, Visual/Perceptual Skills, ADL Training, Education re assistive Equipment, Education re Diagnosis, Caregiver Training and Home Program Visit Plan Frequency: 1-2x /Week Duration: 6 Weeks General Plan: visual scanning of environment FMS writing manipulation of coins right UE motor control TEXT: Thank you for the opportunity to evaluate your patient. For Medicare and Medicare HMO plans, please review the plan of care and approve it. It will need to be FAXED BACK to us at [phone] for Medicare purposes. Please let me know if there are questions or concerns regarding this plan of care. Physician Signature: Date:__ 04/23/25 0745 CC: CLARISSA Zavaleta; Dr. Abby Alonso, DO MK Signed For Medicare only, by signing this I certify the plan of care. Physicians Signature Date Normal [facility] SP/HP.SP.Jerilyn 04-19-2025 SP/HP.SP.EV [facility] Speech Pathology [facility] [address] [place] [address] [address] [place] [address] / REHABILITATION SERVICES INITIAL EVALUATION MR#: [id number] Acct: [id number] Name: NASH FERGUSON Rep #: [id number] : 1950 74 From: Cait Neri M.S., CCC-BULLION WEIGHER Referring DrSloan: Dr. Abby Alonso, DO Status: R EG RCR Insurance: [employer] PPO CHAMPVA Visit History Visit Info Date of Eval: 04/18/25 Today is Visit #: 1 Road Roller Operator: ERIC Zamarripa Attending Doctor: Referring Doctor: Reason for Referral: CVA Previous speech therapy: No Other Relevant Medical History/Diagnoses/Surg blas: NASH FERGUS[facility]BOB[facility] a diagnosis of [facility]A. Byron arrived to [facility] with his , Dottie, who did not participate in the evaluation. Byron was the historian when ST obtained case history. Byron was recently d/c from hospital on 04/13/25 and was admitted for 2 days. He stated that his CVA occurred at [facility] on 04/11/25 with his and daughter and he was life lifted to the hospital. He reported memory loss when he was in the hospital and exhibited poor memory prior to CVA that has recently worsened. He was not treated at [facility], so CT was unavailable to review. Byron mentioned that his doctor revealed he had a previous stroke when looking at the most recent MRI. Byron reported recent right side visual deficits, excessive fatigue, unsteadiness, word finding difficulty, worsening memory loss, and easily getting lost. He also mentioned that his attention is unimpaired, but later noted that he has a hard time focusing. ST observed that Byron was wearing a hearing aid in right ear. His , Dottie Lima,) has been helping him manage his medications everyday. He did not bring his updated medication list to the evaluation and claimed that his knows them. Byron also noted difficulty balancing finances as of recently and needing assistance from his and neighbor when attempting to pay a credit card bill. His doctor declared he cannot drive for [address] discussed potentially scheduling a driving evaluation in the future if his visual deficits improve. Byron expressed that his reading, writing, and spelling skills have declined after his CVA. He also revealed that he's experiencing executive functioning deficits related to maintaining a daily routine. Byron disclosed that a few days ago, he accomplished nothing on his daily schedule and wore his gym clothes all day. He mentioned that he had a daily routine before the CVA which has changed significantly. He is currently unable to help around the house as much as he would like, especially since his had multiple surgeries and needs his assistance. Byron also noted a difference in cognitive skills and word finding ability after his hip and knee surgeries. Prior to admission, Byron could do everyday day tasks independently and took care of his while she was recovering from surgery. He reported various chores he was able to accomplish during his previous daily routine such as unloading the raw silk grader, doing laundry, walking the dog, and managing finances. His hobbies include walking with his dog (Rock Lay), fossil hunting, and swimming. 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 He expressed his interest in cognitive therapy to improve his quality of life and independence. Smoking Status: Never smoker Diagnosis Diagnosis: Mild Cognitive-Linguistic Dysfunction Pain Is pain an issue with your current prescribed condition?: No Personal Preferred language: Tanzanian Patient Allergies Allergies Allergies: Allergies etanercept (From Enbrel) Allergy (Verified 12/18/24 15:41) Rash methylprednisolone Allergy (Verified 12/18/24 15:41) Rash rivaroxaban (From Xarelto) Adverse Reaction (Intermediate, Verified 12/18/24 15:41) Rash cephalexin (From Keflex) Adverse Reaction (Mild, Verified 12/18/24 15:41) Rash clindamycin Adverse Reaction (Mild, Verified 12/18/24 15:41) GI upset CLQT CLQT CLQT Administered: Yes CLQT: Cognitive Linguistic Quick Test (CLQT) is a criterion - referenced assessment designed for adults between the ages of 18 and 89 with known or suspected neurological dysfuntions. The CLQT is to assess strength and weaknesses in five cognitive domains. Severity ratings are within normal limits, mild, moderate, severe deficits. The subtests are as follows: Date: 04/18/25 Attention Attention: Mild Memory Memory: WNL Executive Functions Executive Functions: Mild Language Language: Mild Visuospatial Skills Visuospatial Skills: WNL Composite Severity Rating Composite Severity Rating: Mild Clock Drawing Severity Rating Clock Drawing Severity Rating: WNL CLQT Comments Cognitive Domain Scores:: -: Cognitive Domain Scores (more content not included)... Normal [facility] Telephone Encounteron 2024 Lens Edger Authentication Interface Message Text Neurology Clinical Coding Quality Coordinator Note Attempted to call patient. LVM to return call to the Neurology department to schedule a neurology appt for stroke. Letter sent NUVIA CorreaN, RN, CMSRN Clinical Coding Quality Coordinator, Neurology Normal [facility] Progress Noteson 04-16-2025 Lens Edger Authentication Interface Message Text STROKE DISCHARGE INITIAL CALL Interview Conducted On: 04/16/2025. Pt calls TCC back and identifies self with Name and . Slurry Blender Services: I.D. # NA 1.Did your doctor explain your health problem/diagnosis to you or caregiver? Pt states Yes. 2. What is your diagnosis or health problem? Pt states I had a stroke. 3. Do you understand what this means? TCC reviews ischemic stroke and Pt and his state understanding. 4. Have your symptoms subsided, or are they still present? Pt states he is still experiencing word difficulty, and changes in his visual field. 5. Does the Pt have new onset Headache, Vision Changes, High Blood Pressure, Facial Droop, Changes in Speech, Weakness, Numbness, Tingling or Falls? Denies. 6. Do you know the signs/symptoms of stroke and who to call for help? Pt was air lifted from [facility] and taken to [facility]. Pt and his state understanding to call 9--1 in the future if needed. 7. Review BE FAST, Does Pt or Caregiver state understanding? BE FAST reviewed and Pt and his state understanding. 8. Did you get your prescriptions filled? Yes Are you able to picker and sorter load and unload your medications? Yes 9. Are you taking your medications as directed? Yes 10. Are you taking medications, post stroke for: A) Antiplatelet; Aspirin and Clopidogrel B) Anticoagulation; NA Anticoagulation Clinic; NA C) Statin Therapy; Pravastatin, Ezetimibe. D) Diabetes Management; Pt states he is on Metformin. E) Hypertension Management; Pt states Losartan. 11. Does the Pt require assistance completing ADL's? No difficulty reported If so, who assists? Pt , and many friends from neighbors to quaker. 12. Does the Pt receive Home Care Services for therapy? NA. 13. Does the Pt have Outpatient Therapy Services scheduled? Pt and his are aware of the recommendation to receive Outpatient Physical, Occupational, and Speech Therapy, Neuro based/vision changes and will discuss with Pt PCP. 14. When are you scheduled to follow-up with your PCP, and Specialists? A) PCP; Pt states he sees [facility] and has an appointment for today 04/16/2025. B) Neurology; Pt and his are aware to get a Neurologist, Stroke specialty for follow-up and state they will discuss with PCP today. C) Neurosurgery; NA D) Cardiology; NA E) PM AND R (Stroke); Pt and his are aware, and will discuss with PCP for referral F) Endocrine; NA 15. Do you have transportation to your appointments? Yes. RISK FACTOR MODIFICATION: 16. Are you smoking? Pt states he quit approximately 15 years ago. A) If so, how much are you smoking per day? NA B) Do you have a plan to quit? NA C) Are you currently using any smoking cessation aids? NA 17. Do you have a history of elevated cholesterol levels? Yes A) Review post stroke dietary recommendations of low cholesterol, low fat (saturated and trans), and low sodium. Pt states understanding to review with PCP; Yes, as well as following a diabetic diet. Discussed with Pt and his to talk with PCP about a nutrition consult. Both state understanding. 18. Do you have a history of Diabetes or Pre-Diabetes? Yes. A) How often do you check your blood glucose levels? Pt states not very often. Pt and his are aware to discuss frequency of monitoring with PCP today. B) What have been your average levels since discharge home? NA 19. Do you have a history of Hypertension? Yes A) Do you have a blood pressure monitor at home? Yes. B) How often do you monitor and record blood pressure readings? Pt will discuss frequency of monitoring with PCP. Pt and his are aware to monitor and record results to share with PCP. C) What is the goal for your blood pressure, post hospitalization? Pt will discuss with PCP. 20. Activity Level: A) Have you fallen since you have been discharged to home? No. Do you use any aids for ambulation? No. Discussed with Pt fall precautions. B) If so, how many times have you fallen, and did you get injured? None/NA C) Is Pt aware of their activity level post discharge? Pt is aware no driving, and will discuss activity level with PCP. 21. Comments: Pt is aware of the order for Cardiac Event Monitor, and will discuss with PCP about getting one in [place]. Should Pt decide to come to [facility] for a Cardiac Event Monitor he and his are aware to call Heart and Vascular at #[phone] to obtain one. 22. Is Pt willing to participate in the weekly TCC program? Pt states he is going to stay down here referring to the [place] area. Pt not enrolled in TCC program. Zarina Munson RN, BSN Stroke Transitional Parimutuel Ticket Seller [facility] PH: [phone] Normal [facility] Leslee 04-15-2025 [place] Telephone (NIQ) NASH FERGUSON ([id number]) 1950 M Date Time Provider Department 04/15/25 MARCO ANTONIO SALAS During your visit today, we recorded the following information about you: Lexi Ellison 04/29/2025 1:17 AM Addendum OSH imaging/records received from [facility]: April 15, 2025 -2024 Records available in Care Everywhere -2024 Imaging Spoke with [facility] Radiology team who pushed 2024 imaging to [facility] OSH imaging/records received from [facility]: April 15, 2025 -2019 Records available in Care Everywhere -2019 Imaging Complete with Docusign: CHYNA Stat Form - Aden Ferguson.[email or web address] Envelope ID From: Lexi Ellison Last change on 04/15/2025 01:24:15 pm Sent on 04/15/2025 01:23:46 pm Completed Allergies As of Date: 04/15/2025 Noted Allergy Reaction KEFLEX (CEPHALEXIN) 02/25/2006 2 - Rash Date Reviewed: 02/03/2019 Reviewed by: April Tobias (Heather) - Fully Assessed Reason for Visit: Imaging/Records [Other] Prescriptions as of 04/29/2025 - Ascorbic Acid 1,000 mg tablet Take 1,000 mg by mouth. - cholecalciferol (VITAMIN D3) 5,000 unit tab Take 5,000 Units by mouth. - lisdexamfetamine (VYVANSE) 70 mg capsule Take 70 mg by mouth. - losartan (COZAAR) 25 mg tablet Take 25 mg by mouth. - metFORMIN ER (GLUCOPHAGE XR) 500 mg 24 hr tablet Take 500 mg by mouth. - methylcellulose, with sugar, (CITRUCEL, SUCROSE,) oral powder Take by mouth. - Multivitamin capsule Take 1 capsule by mouth. - pravastatin (PRAVACHOL) 20 mg tablet Take 20 mg by mouth. - resveratrol 250 mg cap Take 1 tablet by mouth. - sertraline (ZOLOFT) 100 mg tablet Take 100 mg by mouth. - traMADol (ULTRAM) 50 mg tablet TAKE 1 TABLET BY MOUTH EVERY 6 HOURS NEEDED FOR PAIN - kxvv-gwyt-sok-yuc-alivia- vani-hor (TUMERSAID) [phone] mg tab Take 1 tablet by mouth. - Coenzyme Q10 200 mg cap Take 200 mg by mouth. - Zinc (CHELATED ZINC) 50 mg tab Take 50 mg by mouth. - glucosam/chond-msm1/C/ elvin/bor (DGPXYBWCELX-PBDDM-ZIZ COMPLEX ORAL) Take by mouth. - TRIAMCINOLONE ACETONIDE 0.1 % TOPICAL CREAM BID apply to affected areas, not face or skin folds. - COMPOUNDED PRESCRIPTION arginine,zinc daily - SELENIMIN 200 MCG TAB Take one(1) tablet daily. - RITALIN LA 40 MG ORAL MP50 Take one(1) tablet two(2) times daily as needed. Problem List As Of Date 04/15/2025 Noted Resolved GENERALIZED ANXIETY DIS [F41.1] ATTN DEFICIT W HYPERACT [F90.9] 03/29/2005 VENOUS INSUFFICIENCY NOS [I87.2] 02/23/2006 CELLULITIS NOS [L03.90, L02.91] 04/12/2006 CARDIAC DYSRHYTHMIA NOS [I49.9] 05/23/2007 Encounter Status:Closed by LEXI ELLISON on 04/29/25 Normal [facility] BASIC METABOLIC PANELon 09- Anion gap [Moles/Vol] 12 mmol/L Normal 10-20 [facility] Comment on above: Performed By: #### H B A1C #### [facility] [address] [place] [address], [address] Calcium [Mass/Vol] 8.7 mg/dL Normal 8.6-10.3 [facility] Comment on above: Performed By: #### H B A1C #### [facility] [address] [place], [address] Chloride [Moles/Vol] 106 mmol/L Normal 98-107 [facility] Comment on above: Performed By: #### H B A1C #### [facility] [address] [place] [address], [address] CO2 [Moles/Vol] 25 mmol/L Normal 21-31 [facility] Comment on above: Performed By: #### H B A1C #### [facility] [address] [place], [address] Creatinine [Mass/Vol] 0.89 mg/dL Normal 0.70-1.30 [facility] Comment on above: Performed By: #### H B A1C #### [facility] [address] [place], [address] ESTIMATED GFR (CKD-EPI) 91 mL/min/1.73sqm Normal >=60 [facility] Comment on above: Result Comment: 2020 CKD EPI Equation using Creatinine without Race Comment: Estimated glomerular filtration rate (eGFR) is calculated without a race coefficient. Values should be interpreted in the context of the patient's full clinical presentation. Reference: 1. Min Blas, Anthony M, Martine MARQUEZ, et al.. A Unifying Approach for GFR Estimation: Recommendations of the NKF-ASN Task Force on Reassessing the Inclusion of Race in Diagnosing Kidney Disease. [place] Journal of Kidney Diseases 202;79(2):268-88.e1. 2. N Engl J Med 1 Vol. 385 Issue 19 Pages 0879-2318 Performed By: #### H B A1C #### [facility] [address] [place], [address] Glucose [Mass/Vol] 114 mg/dL High 74-109 [facility] Comment on above: Performed By: #### H B A1C #### [facility] [address] [place], [address] Potassium [Moles/Vol] 4.1 mmol/L Normal 3.5-5.0 [facility] Comment on above: Performed By: #### H B A1C #### [facility] [address] [place], [address] Sodium [Moles/Vol] 139 mmol/L Normal 136-145 [facility] Comment on above: Performed By: #### H B A1C #### [facility] [address] [place], [address] Urea nitrogen [Mass/Vol] 13 mg/dL Normal 7-25 [facility] Comment on above: Performed By: #### H B A1C #### [facility] [address] [place], [address] Basic metabolic 2000 panelon 04-13-2025 Anion gap [Moles/Vol] 12 mmol/L 10 - 20 [facility] Calcium [Mass/Vol] 8.7 mg/dL 8.6 - 10. 3 mg/dL [facility] Chloride [Moles/Vol] 106 mmol/L 98 - 10 7 mmol/L [facility] CO2 [Moles/Vol] 25 mmol/L 21 - 31 mmol/L [facility] Creatinine [Mass/Vol] 0.89 mg/dL 0.70 - 1.30 mg/dL [facility] GFR/1.73 sq M.predicted CKD-EPI (S/P/Bld) [Vol rate/Area] 91 - PINF [facility] Comment on above: 2020 CKD EPI Equatio n using Creatinine without Race Comment: Estimated glomerular filtration rate (eGFR) is calculated without a race coefficient. Values should be interpreted in the context of the patient's full clinical presentation. Reference: 1. Min C, Anthony M, Martine DC, et al.. A Unifying Approach for GFR Estimation: Recommendations of the NKF-ASN Task Force on Reassessing the Inclusion of Race in Diagnosing Kidney Disease. Vincent[place] Journal of Kidney Diseases 202;79(2):268-88.e1. 2. N Engl J Med 2020 Vol. 385 Issue 19 Pages 4263-4881 Glucose [Mass/Vol] 114 mg/dL High 74 - 109 mg/dL [facility] Interpretation and review of laboratory results Abnormal [facility] Potassium [Moles/Vol] 4.1 mmol/L 3.5 - 5.0 mmol/L [facility] Sodium [Moles/Vol] 139 mmol/L 136 - 145 mmol/L [facility] Urea nitrogen [Mass/Vol] 13 mg/dL 7 - 25 mg/dL [facility] CBC panel Auto (Bld)on 04-13 Erythrocyte distribution width (RBC) [Ratio] 14.8 % High 11.5 - 14.5 % [facility] Hematocrit (Bld) [Volume fraction] 43.2 % 41.0 - 53.0 % [facility] Hemoglobin (Bld) [Mass/Vol] 14.7 g/dL 13.9 - 16.3 g/dL [facility] and [facility] of [facility] results Abnormal [facility] MCH (RBC) [Entitic mass] 30.6 pg 26.0 - 34.0 pg [facility] MCHC (RBC) [Mass/Vol] 34 g/dL 32.0 - 35.9 g/dL [facility] MCV (RBC) [Entitic vol] 90 fL 80 - 100 fL [facility] Platelet mean volume (Bld) [Entitic vol] 7.4 fL Low 7.5 - 11.2 fL [facility] Platelets (Bld) [#/Vol] 251 10*3/uL 150 - 400 K/uL [facility] RBC (Bld) [#/Vol] 4.79 10*6/uL [facility] WBC (Bld) [#/Vol] 6.4 10*3/uL 4.5 - 11.5 K/uL [facility] COMPLETE BLOOD COUNTon 04-13 Erythrocyte distribution width (RBC) [Ratio] 14.8 % High 11.5-14.5 [facility] Comment on above: Performed By: #### H B A1C #### [facility] [address] [place], [address] Hematocrit (Bld) [Volume fraction] 43.2 % Normal 41.0-53.0 [facility] Comment on above: Performed By: #### H B A1C #### [facility] [address] [place], [address] Hemoglobin (Bld) [Mass/Vol] 14.7 g/dL Normal 13.9-16.3 The [facility] Comment on above: Performed By: #### H B A1C #### [facility] [address] [place], [address] MCH (RBC) [Entitic mass] 30.6 pg Normal 26.0-34.0 The [facility] Comment on above: Performed By: #### H B A1C #### [facility] [address] [place], [address] MCHC (RBC) [Mass/Vol] 34.0 g/dL Normal 32.0-35.9 [facility] Comment on above: Performed By: #### H B A1C #### [facility] [address] [place], [address] MCV (RBC) [Entitic vol] 90 fL Normal 80-100 The [facility] Comment on above: Performed By: #### H B A1C #### [facility] [address] [place], [address] Platelet mean volume (Bld) [Entitic vol] 7.4 fL Low 7.5-11.2 The [facility] Comment on above: Performed By: #### H B A1C #### [facility] [address] [place], [address] Platelets (Bld) [#/Vol] 251 10*3/uL Normal 150-400 [facility] Comment on above: Performed By: #### H B A1C #### [facility] [address] [place], [address] RBC (Bld) [#/Vol] 4.79 10*6/uL Normal 4.50-5.90 [facility] Comment on above: Performed By: #### H B A1C #### [facility] [address] [place], [address] WBC (Bld) [#/Vol] 6.4 10*3/uL Normal 4.5-11.5 [facility] Comment on above: Performed By: #### H B A1C #### [facility] [address] [place], [address] CT HEAD W/O CONTRASTon 04-13 CT HEAD W/O CONTRAST EXAMINATION: CT HEA D W/O CONTRASTPRO 04/12/2025 11:25 PM CLINICAL HISTORY: Vision loss; peripheral vision loss, unexplained by basal ganglia ischemia ASSOCIATED DIAGNOSIS: Vision loss peripheral vision loss, unexplained by basal ganglia ischemia ORDERING PROVIDER: EDILMA KONG TECHNOLOGISTS NOTE: COMPARISON: CTA of the head and neck from 04/11/2025 TECHNIQUE: Thin axial imaging of the head was performed without intravenous contrast. FINDINGS: There are small acute to subacute infarcts in the left occipital pole with mild localized gyral swelling and sulcal effacement. Possible trace petechial hemorrhage at the infarct margins. ECASS Hemorrhagic Transformation Score: HI1. Few additional scattered hypodensities in the periventricular white matter are nonspecific but favor sequelae of mild chronic small vessel ischemia. Brain volume and ventricular caliber are within normal limits. No focal abnormality of the skull base or calvarium. The paranasal sinuses and tympanomastoid cavities are unopacified. IMPRESSION: Small acute-subacute infarcts in the left occipital pole without significant mass effect. Possible trace petechial hemorrhage at the infarct margins versus regions of cortical sparing. ECASS Hemorrhagic Transformation Score: HI1. MACRO: None I have personally reviewed the images and agree with the resident's interpretation. Normal The [employer] CT Head WO contrastOrdered B y: Salas Recio on 04-13-2025 CT DLP 1325.7 (mGy.cm) [facility] Work Phone: CT Series Head [employer] Work Phone: CTDI VOL 67.5 (mGy) [employer] Work Phone: PHANTOM TYPE IEC Head Dosimetry Phantom [employer] Work Phone: [employer] Work Phone: CT Head WO contraston 2024 EXAMINATION: CT HEAD W/O CONTRASTPRO 04/12/2025 11:25 PM CLINICAL HISTORY: Vision loss; peripheral vision loss, unexplained by basal ganglia ischemia ASSOCIATED DIAGNOSIS: Vision loss peripheral vision loss, unexplained by basal ganglia ischemia ORDERING PROVIDER: EDILMA KONG [employer]ISTS NOTE: COMPARISON: CTA of the head and neck from 04/11/2025 TECHNIQUE: Thin axial imaging of the head was performed without intravenous contrast. FINDINGS: There are small acute to subacute infarcts in the left occipital pole with mild localized gyral swelling and sulcal effacement. Possible trace petechial hemorrhage at the infarct margins. ECASS Hemorrhagic Transformation Score: HI1. Few additional scattered hypodensities in the periventricular white matter are nonspecific but favor sequelae of mild chronic small vessel ischemia. Brain volume and ventricular caliber are within normal limits. No focal abnormality of the skull base or calvarium. The paranasal sinuses and tympanomastoid cavities are unopacified. IMPRESSION: Small acute-subacute infarcts in the left occipital pole without significant mass effect. Possible trace petechial hemorrhage at the infarct margins versus regions of cortical sparing. ECASS Hemorrhagic Transformation Score: HI1. MACRO: None I have personally reviewed the images and agree with the resident's interpretation. RADIOLOGY Salas Recio MD - 04/13/2025 EXAMINATION: CT HEAD W/O CONTRASTPRO 04/12/2025 11:25 PM CLINICAL HISTORY: Vision loss; peripheral vision loss, unexplained by basal ganglia ischemia ASSOCIATED DIAGNOSIS: Vision loss peripheral vision loss, unexplained by basal ganglia ischemia ORDERING PROVIDER: EDILMA KONG [employer]CHNOLOGISTS NOTE: COMPARISON: CTA of the head and neck from 04/11/2025 TECHNIQUE: Thin axial imaging of the head was performed without intravenous contrast. FINDINGS: There are small acute to subacute infarcts in the left occipital pole with mild localized gyral swelling and sulcal effacement. Possible trace petechial hemorrhage at the infarct margins. ECASS Hemorrhagic Transformation Score: HI1. Few additional scattered hypodensities in the periventricular white matter are nonspecific but favor sequelae of mild chronic small vessel ischemia. Brain volume and ventricular caliber are within normal limits. No focal abnormality of the skull base or calvarium. The paranasal sinuses and tympanomastoid cavities are unopacified. IMPRESSION: Small acute-subacute infarcts in the left occipital pole without significant mass effect. Possible trace petechial hemorrhage at the infarct margins versus regions of cortical sparing. ECASS Hemorrhagic Transformation Score: HI1. MACRO: None I have personally reviewed the images and agree with the resident's interpretation. [facility] GLUCOSE, FINGERSTICK-IN OFFI CEon 04-13-2025 Glucose [Mass/Vol] 128 mg/dL High 74 - 109 mg/dL [facility] Interpretation and review of laboratory results Abnormal [facility] Glucose [Mass/Vol] 128 mg/dL High 74-109 [facility] Comment on above: Performed By: #### H B A1C #### [facility] [address] [place], [address] Glucose [Mass/Vol] 104 mg/dL 74 - 109 mg/dL [facility] Interpretation and review of laboratory results Normal [facility] Glucose [Mass/Vol] 104 mg/dL Normal 74-109 The [facility] Comment on above: Performed By: #### 8 2948 #### [facility] GLUCOSE [address], [address] Lipid 1996 panelon Cholesterol [Mass/Vol] 210 mg/dL High NINF - 200 mg/dL [facility] Comment on above: Desirable: < 200 mg/ dL Borderline High: 200-239 mg/dL High: > = 240 mg/dL Cholesterol in HDL [Mass/Vol] 48 mg/dL 40 - PINF mg/dL [facility] Cholesterol in LDL [Mass/Vol] 148 mg/dL High NINF - 100 mg/dL [facility] Cholesterol in LDL/Cholesterol in HDL [Mass ratio] 3.08 {ratio} NINF - 3.57 [facility] Cholesterol non HDL [Mass/Vol] 162 mg/dL High NINF - 130 mg/dL [facility] Cholesterol.total/Ch olesterol in HDL [Mass ratio] 4.38 {ratio} NINF - 5.00 [facility] Interpretation and review of laboratory results Abnormal [facility] Triglyceride [Mass/Vol] 106 mg/dL NINF - 150 mg/dL [facility] MAGNESIUMon 04-13-2025 Magnesium [Mass/Vol] 1.9 mg/dL 1.9 - 2 .7 mg/dL [facility] Magnesium [Mass/Vol] 1.9 mg/dL Normal 1.9-2.7 The [facility] Comment on above: Performed By: #### H B A1C #### [facility] [address] [place], [address] No Panel Informationon 04-13 Interpretation and review of laboratory results Normal [facility] PHOSPHORUSon 04-13-2025 Phosphate [Mass/Vol] 3.6 mg/dL 2.5 - 5 .0 mg/dL [facility] Phosphate [Mass/Vol] 3.6 mg/dL Normal 2.5-5.0 [facility] Comment on above: Performed By: #### H B A1C #### [facility] [address] [place], [address] BASIC METABOLIC PANELon 04-01 Anion gap [Moles/Vol] 13 mmol/L Normal 10-20 [facility] Comment on above: Performed By: #### C H8, MG, PHOS, HDL #### [facility] [address] [place] [address], Calcium [Mass/Vol] 8.8 mg/dL Normal 8.6-10.3 [facility] Comment on above: Performed By: #### C H8, MG, PHOS, HDL #### [facility] [address] [place] [address], Chloride [Moles/Vol] 106 mmol/L Normal 98-107 [facility] Comment on above: Performed By: #### C H8, MG, PHOS, HDL #### [facility] [address] [place] [address], CO2 [Moles/Vol] 26 mmol/L Normal 21-31 [facility] Comment on above: Performed By: #### C H8, MG, PHOS, HDL #### [facility] [address] [place] [address], Creatinine [Mass/Vol] 0.95 mg/dL Normal 0.70-1.30 [facility] Comment on above: Performed By: #### C H8, MG, PHOS, HDL #### [facility] [address] [place] [address], ESTIMATED GFR (CKD-EPI) 85 mL/min/1.73sqm Normal >=60 [facility] Comment on above: Result Comment: 2020 CKD EPI Equation using Creatinine without Race Comment: Estimated glomerular filtration rate (eGFR) is calculated without a race coefficient. Values should be interpreted in the context of the patient's full clinical presentation. Reference: 1. Min C, Anthony M, Martine MARQUEZ, et al.. A Unifying Approach for GFR Estimation: Recommendations of the NKF-ASN Task Force on Reassessing the Inclusion of Race in Diagnosing Kidney Disease. [place] Journal of Kidney Diseases 2021;79(2):268-88.e1. 2. N Engl J Med 2020 Vol. 385 Issue 19 Pages 8323-9999 Performed By: #### C H8, MG, PHOS, HDL #### [facility] [address] [place] [address], Glucose [Mass/Vol] 123 mg/dL High 74-109 [facility] Comment on above: Performed By: #### C H8, MG, PHOS, HDL #### [facility] [address] [place] [address], Potassium [Moles/Vol] 4.0 mmol/L Normal 3.5-5.0 [facility] Comment on above: Performed By: #### C H8, MG, PHOS, HDL #### [facility] [address] [place] [address], Sodium [Moles/Vol] 141 mmol/L Normal 136-145 [facility] Comment on above: Performed By: #### C H8, MG, PHOS, HDL #### [facility] [address] [place] [address], Urea nitrogen [Mass/Vol] 13 mg/dL Normal 7-25 [facility] Comment on above: Performed By: #### C H8, MG, PHOS, HDL #### [facility] [address] [place] [address], Basic metabolic 2000 panelon 04-12-2025 Anion gap [Moles/Vol] 13 mmol/L 10 - 20 [facility] Calcium [Mass/Vol] 8.8 mg/dL 8.6 - 10. 3 mg/dL [facility] Chloride [Moles/Vol] 106 mmol/L 98 - 10 7 mmol/L [facility] CO2 [Moles/Vol] 26 mmol/L 21 - 31 mmol/L [facility] Creatinine [Mass/Vol] 0.95 mg/dL 0.70 - 1.30 mg/dL [facility] GFR/1.73 sq M.predicted CKD-EPI (S/P/Bld) [Vol rate/Area] 85 - PINF [facility] Comment on above: 2020 CKD EPI Equatio n using Creatinine without Race Comment: Estimated glomerular filtration rate (eGFR) is calculated without a race coefficient. Values should be interpreted in the context of the patient's full clinical presentation. Reference: 1. Min C, Anthony M, Martine DC, et al.. A Unifying Approach for GFR Estimation: Recommendations of the NKF-ASN Task Force on Reassessing the Inclusion of Race in Diagnosing Kidney Disease. [place] Journal of Kidney Diseases 202;79(2):268-88.e1. 2. N Engl J Med 2020 Vol. 385 Issue 19 Pages 3391-3520 Glucose [Mass/Vol] 123 mg/dL High 74 - 109 mg/dL [facility] Interpretation and review of laboratory results Abnormal [facility] Potassium [Moles/Vol] 4 mmol/L 3.5 - 5.0 mmol/L [facility] Sodium [Moles/Vol] 141 mmol/L 136 - 145 mmol/L [facility] Urea nitrogen [Mass/Vol] 13 mg/dL 7 - 25 mg/dL [facility] CBC panel Auto (Bld)on 04-12 Erythrocyte distribution width (RBC) [Ratio] 14.7 % High 11.5 - 14.5 % [facility] Hematocrit (Bld) [Volume fraction] 40.9 % Low 41.0 - 53.0 % [facility] Hemoglobin (Bld) [Mass/Vol] 14 g/dL 13.9 - 16.3 g/dL [facility] Interpretation and review of laboratory results Abnormal [facility] MCH (RBC) [Entitic mass] 30.7 pg 26.0 - 34.0 pg [facility] MCHC (RBC) [Mass/Vol] 34.3 g/dL 32.0 - 35.9 g/dL [facility] MCV (RBC) [Entitic vol] 89 fL 80 - 100 fL [facility] Platelet mean volume (Bld) [Entitic vol] 6.9 fL Low 7.5 - 11.2 fL [facility] Platelets (Bld) [#/Vol] 264 10*3/uL 150 - 400 K/uL [facility] RBC (Bld) [#/Vol] 4.58 10*6/uL [facility] WBC (Bld) [#/Vol] 6.5 10*3/uL 4.5 - 11.5 K/uL [facility] COMPLETE BLOOD COUNTon 04-12 Erythrocyte distribution width (RBC) [Ratio] 14.7 % High 11.5-14.5 [facility] Comment on above: Performed By: #### C BC ####[facility] [id number] [place] [address], Hematocrit (Bld) [Volume fraction] 40.9 % Low 41.0-53.0 The [facility] Comment on above: Performed By: #### C BC ####[facility] [id number] [place], [place], Hemoglobin (Bld) [Mass/Vol] 14.0 g/dL Normal 13.9-16.3 [facility] Comment on above: Performed By: #### C BC ####[facility] [id number] [place] [address], MCH (RBC) [Entitic mass] 30.7 pg Normal 26.0-34.0 [facility] Comment on above: Performed By: #### C BC ####[facility] [id number] [place] [address], MCHC (RBC) [Mass/Vol] 34.3 g/dL Normal 32.0-35.9 [facility] Comment on above: Performed By: #### C BC ####[facility]OLOGY [id number] [place] [address], MCV (RBC) [Entitic vol] 89 fL Normal 80-100 The [facility] Comment on above: Performed By: #### C BC ####[facility]OLOGY [id number] [place] [address], Platelet mean volume (Bld) [Entitic vol] 6.9 fL Low 7.5-11.2 [facility] Comment on above: Performed By: #### C BC ####[facility] PATHOLOGY [id number] [place] [address], Platelets (Bld) [#/Vol] 264 10*3/uL Normal 150-400 [facility] Comment on above: Performed By: #### C BC ####[facility] PATHOLOGY [id number] [place] [address], RBC (Bld) [#/Vol] 4.58 10*6/uL Normal 4.50-5.90 [facility] Comment on above: Performed By: #### C BC ####[facility] PATHOLOGY [id number] [place] [address], WBC (Bld) [#/Vol] 6.5 10*3/uL Normal 4.5-11.5 [facility] Comment on above: Performed By: #### C ####[facility] [id number] [place], [place], CT Head WO contraston 2024 Radiology Study observation (narrative) [facility] Consultson 04-12-2025 Lens Edger Authentication Interface Message Text SPEECH-LANGUAGE PATHOLOGY ACUTE EVAL AC Time In: 854 Time Out: 930 Session Duration: 36 minutes Referral received, chart reviewed and history is noted. Patient correctly identified by patient/armband stating name and date of . Date of Admit: 04/11/25 Reason for Consult: Evaluate AND Treat History/Diagnosis: Her H AND P: Nash Ferguson is a 74 year old male w/ PMH Diabetes, right bundle branch block, bilateral hearing loss, bilateral hip replacement, remote history of tobacco abuse presents with significant other for sudden onset right-sided weakness. Patient's life report last known well 6:30 p.m. right before patient took a brief nap; as patient awoke there was noted confusion, right facial droop, visual disturbance as well as right-sided weakness. Patient reports that they had just gotten to [facility] shortly before symptom onset thus EMS was called and patient was airlifted to [facility]. Patient reports to me that whole encounter lasted about 3 hours before symptoms started to gradually offset. Patient reports history of TIAs however there has not been any treatment whatsoever. Patient tells me that he is currently not at his baseline he is still having difficulty with word finding and attests to patient still being in a confused state. Denies any other neurological symptoms that occurred during encounter such as drooling, dysphagia, numbness of any other part of her body, loss of consciousness or seizure activity. Code stroke was called upon patient presentation and pt sent over to stroke tele. Precautions: Aspiration precautions and Fall precautions FULL CODE Imaging: CT Head IMPRESSION: Age-indeterminate infarct is versus dilated perivascular space in the left basal ganglia. There is no large vessel occlusion. Specifically, there is no intracranial ICA, M1, proximal M2 or basilar artery occlusion. Allergies: Allergies Allergen Reactions Rivaroxaban Rash Prior Level of Functioning: Prior to this admission, patient lived [place]. Pt is a retired and reports highest level of education completed as 16 years. Previously independent with ADLs and iADLs. -right-handed Prior Speech Therapy: None identified in [facility]. SUBJECTIVE: Patient subjective/goals: Pt was seen bedside in semi-fowlers position fully awake and alert throughout evaluation. Participation was adequate. gisell present. Pain: Patient denied Scale (if yes): /10 Location: OBJECTIVE: Hearing: Impaired, has hearing aids in place. Required repetition intermittently throughout evaluation. Vision: Impaired, glasses are available Language: Grossly WFL auditory comprehension and verbal expression. Patient communicated at the conversational level, answered wh- questions, and followed multi-step directions independently. However, anomia displayed in conversation. Reading Comprehension: -Reading comprehension is adequate at the basic level. Pt was able to read white board in room. Written Expression: -Functional writing skills (name) are intact Cognition: Orientation: Oriented to all spheres. PERSON: (+) name; (+) ; (+) age PLACE: (+) facility type; (+) hospital name; (+) city TIME: (+) ANASTASIIA; (+) DOM; (+) MAX; (+) YR; (+) TOD SITUATION: (+) Brief Cognitive Status Exam Subtest Raw Score Comments Orientation 88 Time Estimation 0/4 Off by 80 minutes Confrontation Naming Immediate Recall 4/4 (Not calculated) 3/4 (Not calculated) Mental Control 12/12 12 seconds to complete 0 errors at the basic level 0 errors at the moderate level Clock Drawing 4/4 Incidental Recall 8 Semantic cues improved performance to 4/4 Inhibition 16/16 12 seconds to complete 0 omissions 1 commissions Verbal Production 6/6 13 colors/ 30 seconds Total Raw Score (Maximum=58) 54 Classification Level by Age and Education Average (58-52) WMS-IV Older Adult Record Form Memory: -Immediate Recall: 3/4 items -Delayed Recall: 2/4 after 5 minute delay -Working Memory: Intact at the basic level. Impaired in conversation Attention: -Selective: Intact with attention -Sustained: Adequately sustained attention to structured tasks for 15 minutes. -Alternating: Intact for conversation with 2+ people -Initiation: timely -Impulse control: WFL Problem Solving/Reasoning: -Intact for basic level hospital related scenarios including call light function. 100% -adequate for verbal problem solving of moderately-complex functional scenarios including ID of cause, effect, and solution 100% -adequate mental flexibility for generating multiple alternatives -Reasoning skills are intact at the moderate level. 100% Organization: -Adequate for expression of thoughts/ideas at the conversational level -WFL divergent thought organization for concrete category list generation, 13 items/30 seconds -WFL for sequencing of multi-step functional/familiar task Safety/Judgement: Intact (more content not included)... Normal [facility] Diabetes tracking panelOrder ed By: Kacey Khalil on 04-12-2025 Average glucose Estimated from glycated hemoglobin (Bld) [Mass/Vol] 143 mg/dL [facility] HbA1c (Bld) [Mass fraction] 6.6 % High 4.0 - 5.6 % [facility] Interpretation and review of laboratory results Abnormal [facility] EKG 12 LEAD - PERFORMon 04-01 Diagnosis Normal sinus rhythm Left axis deviation Right bundle branch block Nonspecific T wave abnormality Abnormal ECG No previous ECGs available Confirmed by Wayne STEWART KATHLEEN ([id number]) on 04/12/2025 4:44:56 PM [facility] P wave Atrium by EKG 83 BPM [facility] P wave axis 54 degrees [facility] P-R Interval 172 ms [facility] 422 ms [facility] Q-T interval corrected 495 ms [facility] QRS axis -55 degrees [facility] Center QRS duration 138 ms [facility] T wave axis 18 degrees [facility] FULL LIPID PROFILEon 025 Cholesterol [Mass/Vol] 210 mg/dL High <200 [facility] Comment on above: Result Comment: Karen kaminski: < 200 mg/dL Borderline High: 200-239 mg/dL High: > = 240 mg/dL Performed By: #### C H8, MG, PHOS, HDL #### [facility] [address] [place] [address], Cholesterol in LDL [Mass/Vol] 148 mg/dL High <100 [facility] Comment on above: Performed By: #### C H8, MG, PHOS, HDL #### [facility] [address] [place] [address], Cholesterol.total/Ch olesterol in HDL [Mass ratio] 4.38 {ratio} Normal <5.00 [facility] Comment on above: Performed By: #### C H8, MG, PHOS, HDL #### [facility] [address] [place] [address], HDL CHOL 48 mg/dL Normal >40 [facility] Comment on above: Performed By: #### C H8, MG, PHOS, HDL #### [facility] [address] [place] [address], LDL/HDL 3.08 Normal <3.57 The [facility] Comment on above: Performed By: #### C H8, MG, PHOS, HDL #### [facility] [address] [place] [address], NON-HDL CHOLESTEROL 162 mg/dL High <130 [facility] Comment on above: Performed By: #### C H8, MG, PHOS, HDL #### [facility] [address] [place] [address], Triglyceride [Mass/Vol] 106 mg/dL Normal <150 [facility] Comment on above: Performed By: #### C H8, MG, PHOS, HDL #### [facility] [address] [place] [address], GLUCOSE, FINGERSTICK-IN OFFI CEon 04-12-2025 Glucose [Mass/Vol] 132 mg/dL High 74 - 109 mg/dL [facility] Interpretation and review of laboratory results Abnormal [facility] Glucose [Mass/Vol] 132 mg/dL High 74-109 The [facility] Comment on above: Performed By: #### 8 2948 ####NURSING GLUCOSE [id number] [place], [address] Glucose [Mass/Vol] 106 mg/dL 74 - 109 mg/dL [facility] Interpretation and review of laboratory results Normal [facility] Glucose [Mass/Vol] 106 mg/dL Normal 74-109 The [facility] Comment on above: Performed By: #### H B A1C #### [facility] [address] [place] [address], [address] Glucose [Mass/Vol] 108 mg/dL 74 - 109 mg/dL [facility] Interpretation and review of laboratory results Normal [facility] Glucose [Mass/Vol] 108 mg/dL Normal 74-109 The [facility] Comment on above: Performed By: #### 8 2948 #### NURSING GLUCOSE PROGRAM [address] [place], [address] Glucose [Mass/Vol] 121 mg/dL High 74 - 109 mg/dL [facility] Interpretation and review of laboratory results Abnormal [facility] Glucose [Mass/Vol] 121 mg/dL High 74-109 [facility] Comment on above: Performed By: #### 8 2948 #### NURSING GLUCOSE PROGRAM [address] [place], [address] H AND Danie 04-12-2025 Lens Edger Authentication Interface Message Text Neurology Floor Service H AND P HPI: Nash Ferguson is a 74 year old male w/ PMH Diabetes, right bundle branch block, bilateral hearing loss, bilateral hip replacement, remote history of tobacco abuse presents with significant other for sudden onset right-sided weakness. Patient's life report last known well 6:30 p.m. right before patient took a brief nap; as patient awoke there was noted confusion, right facial droop, visual disturbance as well as right-sided weakness. Patient reports that they had just gotten to [facility] shortly before symptom onset thus EMS was called and patient was airlifted to [facility]. Patient reports to me that whole encounter lasted about 3 hours before symptoms started to gradually offset. Patient reports history of TIAs however there has not been any treatment whatsoever. Patient tells me that he is currently not at his baseline he is still having difficulty with word finding and attests to patient still being in a confused state. Denies any other neurological symptoms that occurred during encounter such as drooling, dysphagia, numbness of any other part of her body, loss of consciousness or seizure activity. Code stroke was called upon patient presentation and pt sent over to stroke tele. Home Medications: List given to me by Annaarchanachristina 2 x 30 mg daily Pravastatin 20 mg daily Zoloft 100 mg daily Losartan 25 mg daily Metformin 500 bid Pre-Hospital mRS: 0 no symptoms at all 1 has some symptoms (like dizziness) BUT is functioning completely normally and fully 2 some disability; able to perform all ADLs (dressing, nutrition, hygiene) BUT may not continue with all prior activities like playing golf or driving 3 moderate disability; needs some help BUT is able to walk without assistance 4 moderate - severe disability; needs help with ADLs and is NOT able to walk without assistance 5 severe disability; complete dependency Vital sign ranges over the past 24 hours (retrieved 04/12/2025 at 4:32 AM): Tmax (24 hours): 98.2 ???F (36.8 ???C) Pulse Av.2 Min: 78 Max: 84 Systolic (24hrs), Av , Min:93 , Max:125 Diastolic (24hrs), Av, Min:73, Max:81 MAP (mmHg) Av.2 mmHg Min: 81 mmHg Max: 90 mmHg Resp Av Min: 16 Max: 20 SpO2 Av.3 % Min: 96 % Max: 98 % No intake or output data in the 24 hours ending 04/12/25 0432 Current Inpatient Medications Scheduled: aspirin EC, 325 mg, Oral, One Time Dose [START ON 04/13/2025] aspirin EC, 81 mg, Oral, Daily pravastatin, 20 mg, Oral, At Bedtime enoxaparin, 40 mg, Subcutaneous, Daily Continuous: lactated ringers, 500 mL PRN: Neurological Exam: Sedation: none Level of consciousness: awake, alert Affect: normal Orientation: oriented x3 Attention: normal Language: intact fluency, comprehension occassional difficulty with recollection Visual meek: possible contralateral superior quadrantopia Neglect: absent Extinction: absent Right-left confusion: absent Cranial Nerves Vision/fundoscopic: n/a Pupils: 3 mm OD, 3 mm OS; reactive to light bilaterally Spontaneous gaze: no deviation Extraocular movements: intact Facial sensation: decreased on R Facial motor function: symmetric forehead wrinkling and smile Hearing: intact to conversation with bilat hearing aids Palate elevation: symmetric Dysarthria: absent Tongue: midline Shoulder shrug: normal Motor Tone: normal Drift: absent Spontaneous abnormal movements: none RUE antigravity, 5/5 full strength, follows commands LUE antigravity, 5/5 full strength, follows commands LLE antigravity, 5/5 full strength, follows commands RLE antigravity, 4/5 full strength, follows commands DTRs RIGHT LEFT Biceps 2 2 Triceps Fingers Patellar 2 2 Ankle Toes Sensation Decreased to light touch on R Coordination R: ataxic L: intact on FNF, HTS General Exam General appearance: normal appearing at stated age Head: atraumatic, normocephalic Neck: supple Eyes: no scleral icterus or edema Mucous membranes: moist Abdomen: soft, NT/ND, bowel sounds present Extremities: no deformities; no joint redness; no joint swelling Physical Exam Constitutional: Appearance: Normal appearance. HENT: Head: Normocephalic and atraumatic. Nose: Nose normal. Eyes: Extraocular Movements: Extraocular movements intact. Pupils: Pupils are equal, round, and reactive to light. Cardiovascular: Rate and Rhythm: Normal rate and regular rhythm. Pulses: Normal pulses. Heart sounds: Normal heart sounds. Pulmonary: Effort: Pulmonary effort is normal. Breath sounds: Normal breath sounds. Abdominal: General: Bowel sounds are normal. Palpations: Abdomen is soft. Musculoskeletal: General: Normal range of motion. Cervical back: Normal range of motion. Skin: General: Skin is warm and dry. Psoriatic plaques Capillary Refill: Capillary refill takes less than 2 seconds. NIH Stroke Scale: time perf (more content not included)... Normal [facility] HEMOGLOBIN A1Con 04-12-2025 Glucose [Mass/Vol] 143 mg/dL Normal [facility] Comment on above: Performed By: #### H B A1C #### [facility] [address] [place], [address] HbA1c (Bld) [Mass fraction] 6.6 % High 4.0-5.6 [facility] Comment on above: Performed By: #### H B A1C #### [facility] [address] [place], [address] MAGNESIUMon 04-12-2025 Magnesium [Mass/Vol] 2 mg/dL 1.9 - 2 .7 mg/dL [facility] Magnesium [Mass/Vol] 2.0 mg/dL Normal 1.9-2.7 [facility] Comment on above: Performed By: #### C H8, MG, PHOS, HDL #### [facility] [address] [place] [address], [id number] No Panel Informationon 04-12 Interpretation and review of laboratory results Normal [facility] PHOSPHORUSon 04-12-2025 Phosphate [Mass/Vol] 3.7 mg/dL 2.5 - 5 .0 mg/dL [facility] Phosphate [Mass/Vol] 3.7 mg/dL Normal 2.5-5.0 [facility] Comment on above: Performed By: #### C H8, MG, PHOS, HDL #### [facility] [address] [place], [place], PROTHROMBIN TIME AND INRon 0 04-12-2025 INR Coag (PPP) [Relative time] 1.03 {INR} 0.90 - 1.10 [facility] Interpretation and review of laboratory results Normal [facility] PT Coag (PPP) [Time] 11.5 s [facility] INR Coag (PPP) [Relative time] 1.03 {INR} Normal 0.90-1.10 [facility] Comment on above: Performed By: #### P T #### [facility] [address] [place], [place], PT Coag (PPP) [Time] 11.5 s Normal 9.7-12.9 [facility] Comment on above: Performed By: #### P T #### [facility] [address] [place], [place], Procedureson 04-12-2025 Lens Edger Authentication Interface Message Text Transthoracic Echocardiography (TTE) Study Status:Finalized Demographics Patient name: PHYLLIS CAO Gender: Male Height: 76 in. Date of : 1950 Weight: 262 lb. Age: 74 year(s) BMI: 31.9 kg/m2 BSA: 2.49 m2 Procedure Staff Indications Stroke. Interpreting physician: MARSHAL DUFFY MD Referring Physician: VANESSA GALLEGOS PA-C Geriatric Aide: RORY Norris Procedure Information Proc. sub type: TTE procedure: 2D echocardiogram, M-Mode, Doppler, Color Doppler, Contrast study. Accession no: [id number] Study location: Non-Unit Procedure date/time: 04/12/2025 10:58 AM Status: Routine Blood pressure: 105 / 72 mmHg Image quality: Poor Contrast medium: Saline Contrast and LV Contrast Tech Comments: Patient identified by name and date of . Doctor's order(s) verified. Patient's preferred language is Tanzanian. Verbal consent for left heart echo contrast was obtained after explanation of the risks (1/10,000 significant and 1/3,000 minor allergic reactions) and benefits (needed enhancement of imaging) were explained. Administration of 1 dose(s) of 1.5 ml of Definity diluted to 8.5 ml of saline was administered by RORY Norris. Saline contrast was performed for a possible PFO. Left Ventricle LVIDd (2D): 5.3 cm LVIDs (2D): 4.2 cm (2.5 - 4 cm) Septum diastolic (2D): 1 cm FS: 21 % Post wall diastolic (2D): 1 cm LV mass (ASE): 200.4 g LV mass (ASE) Index: 80.6 g/m2 Left Atrium LA dimension (2D): 3.9 cm Right Ventricle RV diastolic dimension: 3.7 cm Right Atrium RA dimension : 3 cm LVOT Aorta Aortic root (2D): 2.6 cm Findings Left ventricle: Left ventricular hypertrophy is absent. Left ventricular size is normal. Left ventricular systolic function is normal (function and regional wall motion). The left ventricular ejection fraction (LVEF) is 65% +/- 5% using the biplane summation of discs (Shine's rule) method. Left atrium: The left atrial size is normal. The left atrial volume index is 30 mL/m2 (normal: <35 mL/m2, mild: 35-41 mL/m2, moderate: 42-48 mL/m2, severe: >48 mL/m2). Right ventricle: Normal right ventricular size and function. The tricuspid annular plane systolic excursion (TAPSE, a marker of RV systolic function) is normal at 21 mm (normal >16 mm). Right atrium: Normal right atrium. Aortic valve: Aortic fibrocalcific (non-stenotic) changes are present and are moderate. Mitral valve: Mitral annular fibrocalcific changes are present and are mild. Tricuspid valve: The valve could not be adequately visualized. Pulmonary valve: The valve could not be adequately visualized. Great Vessels: Normal sinus of Valsalva. Pericardium AND pleura: No evidence of a pericardial effusion. Hemodynamics: Estimated RA pressure is 5 mmHg. The pulmonary artery systolic pressure could not be estimated (inadequate tricuspid regurgitation). Miscellaneous Summary: There is no evidence of an interatrial shunt. Procedure Summary Normal LV systolic function. The left ventricular ejection fraction (LVEF) is 65%. Normal RV systolic function. No hemodynamically significant valve disease. The pulmonary artery systolic pressure could not be estimated. Noninvasive hemodynamic assessment is consistent with a normal CVP. There is no evidence of an interatrial shunt. See above for further details. Normal [facility] Progress Noteson 04-12-2025 Lens Edger Authentication Interface Message Text 74 YO M PMHx of T2DM (A1c of <7 8 years ago) , TIA, HTN, HLD, sleep apnea on CPAP remote hx of tobacco abuse came in with dysmetria, confusion, word finding difficulty, and RUE and RLE weakness and numbness, R facial droop, . LKW is 630 pm. Had code stroke called at 1138 PM. Initial NIHS score of 3. CTH: CTA: Age-indeterminate infarct versus dilated perivascular space in the left basal ganglia. Received asa load dose and asa 81 Today: He is still having word finding difficulty. Some R hand clumsiness, dysmetria, Denies drooling, dysphagia, numbness of any other part of her body, loss of consciousness or seizure activity. P.E.: dec R peripheral vision R ataxia FTN with overshooting Strength 5/5 UE and LE bilaterally No droop on exam. Home meds: Vyvanse 2 x 30 mg daily Pravastatin 20 mg daily Zoloft 100 mg daily Losartan 25 mg daily Metformin 500 bid PLAN: Ischemic Stroke localizes to left mca with extension into basal ganglia and internal capsule. -asa daily and plavix daily as well for 21 days F/u on lipid panel HTN is controlled inpatient F/u on echo Normal [facility] Lens Edger Authentication Interface Message Text 04/12/25 0040 Dysphagia Screen: If NOT Alert, Keep Patient NPO. Awake AND Alert, Sitting Upright (10 minutes)? Alert and able to sit upright x 10 minutes Dysphagia Pre-Feeding Assessment: If Any YES Answers, Keep Patient NPO. Weak or Abnormal Voice? No Drooling? No Slurred Speech? No Weak Cough/Unable to Cough? No Yes Answers? No Dysphagia Feeding Screening: If Any YES Answers, Keep Patient NPO. Absent Swallow? No Coughing / Choking? No Voice Change? No Difficulty Swallowing? No Yes Answers? No Dysphagia Meal Observation: If Any YES Answers, Keep Patient NPO. Absent Swallow? No Coughing / Choking? No Voice Change? No Difficulty Swallowing? No Poor Judgment? No Pocketing Food? No Unable to Contain Food / Liquid? No Yes Answers? No Dysphagia Self Feeding Assessment Difficulty Feeding Self? No Normal [facility] Lens Edger Authentication Interface Message Text 04/12/2539 Admit Note (Completed by Receiving Unit) Arrival Time: 39 Arrived to: 6 [place] Narda Arrived from: ED Mode of Transport Cart Transported by: JULIO BLOOD Report Received From: Per Patient chart Normal [facility] BASIC METABOLIC PANELon 04-01 Anion gap [Moles/Vol] 13 mmol/L Normal 10-20 [facility] Comment on above: Performed By: #### H B A1C #### [facility] [address] [place], [address] Calcium [Mass/Vol] 9.0 mg/dL Normal 8.6-10.3 [facility] Comment on above: Performed By: #### H B A1C #### [facility] [address] [place], [address] Chloride [Moles/Vol] 105 mmol/L Normal 98-107 [facility] Comment on above: Performed By: #### H B A1C #### [facility] [address] [place], [address] CO2 [Moles/Vol] 25 mmol/L Normal 21-31 [facility] Comment on above: Performed By: #### H B A1C #### [facility] [address] [place], [address] Creatinine [Mass/Vol] 1.00 mg/dL Normal 0.70-1.30 [facility] Comment on above: Performed By: #### H B A1C #### [facility] [address] [place], [address] ESTIMATED GFR (CKD-EPI) 80 mL/min/1.73sqm Normal >=60 [facility] Comment on above: Result Comment: 2020 CKD EPI Equation using Creatinine without Race Comment: Estimated glomerular filtration rate (eGFR) is calculated without a race coefficient. Values should be interpreted in the context of the patient's full clinical presentation. Reference: 1. Min Blas, Anthony M, Martine MARQUEZ, et al.. A Unifying Approach for GFR Estimation: Recommendations of the NKF-ASN Task Force on Reassessing the Inclusion of Race in Diagnosing Kidney Disease. Vincentian Journal of Kidney Diseases 202;79(2):268-88.e1. 2. N Engl J Med 1 Vol. 385 Issue 19 Pages 9923-2939 Performed By: #### H B A1C #### [facility] [address] [place], [address] Glucose [Mass/Vol] 178 mg/dL High 74-109 [facility] Comment on above: Performed By: #### H B A1C #### [facility] [address] [place], [address] Potassium [Moles/Vol] 4.2 mmol/L Normal 3.5-5.0 [facility] Comment on above: Performed By: #### H B A1C #### [facility] [address] [place], [address] Sodium [Moles/Vol] 139 mmol/L Normal 136-145 [facility] Comment on above: Performed By: #### H B A1C #### [facility] [address] [place], [address] Urea nitrogen [Mass/Vol] 15 mg/dL Normal 7-25 [facility] Comment on above: Performed By: #### H B A1C #### [facility] [address] [place], [address] Basic metabolic 2000 panelon 04-11-2025 Anion gap [Moles/Vol] 13 mmol/L 10 - 20 [facility] Calcium [Mass/Vol] 9 mg/dL 8.6 - 10. 3 mg/dL [facility] Chloride [Moles/Vol] 105 mmol/L 98 - 10 7 mmol/L [facility] CO2 [Moles/Vol] 25 mmol/L 21 - 31 mmol/L [facility] Creatinine [Mass/Vol] 1 mg/dL 0.70 - 1.30 mg/dL [facility] GFR/1.73 sq M.predicted CKD-EPI (S/P/Bld) [Vol rate/Area] 80 - PINF [facility] Comment on above: 2020 CKD EPI Equatio n using Creatinine without Race Comment: Estimated glomerular filtration rate (eGFR) is calculated without a race coefficient. Values should be interpreted in the context of the patient's full clinical presentation. Reference: 1. Min C, Anthony M, Martine MARQUEZ, et al.. A Unifying Approach for GFR Estimation: Recommendations of the NKF-ASN Task Force on Reassessing the Inclusion of Race in Diagnosing Kidney Disease. Vincentian Journal of Kidney Diseases 2021;79(2):268-88.e1. 2. N Engl J Med 2020 Vol. 385 Issue 19 Pages 7324-1218 Glucose [Mass/Vol] 178 mg/dL High 74 - 109 mg/dL [facility] Interpretation and review of laboratory results Abnormal [facility] Potassium [Moles/Vol] 4.2 mmol/L 3.5 - 5.0 mmol/L [facility] Sodium [Moles/Vol] 139 mmol/L 136 - 145 mmol/L [facility] Urea nitrogen [Mass/Vol] 15 mg/dL 7 - 25 mg/dL [facility] CBC WITH DIFFERENTIALon 04-01 Basophils (Bld) [#/Vol] 0.04 10*3/uL 0.00 - 0.20 K/uL [facility] Basophils/100 WBC (Bld) 0.5 % NINF - 1.9 % [facility] Eosinophils (Bld) [#/Vol] 0.03 10*3/uL 0.00 - 0.70 K/uL [facility] Eosinophils/100 WBC (Bld) 0.3 % 0.1 - 4.0 % [facility] Erythrocyte distribution width (RBC) [Ratio] 14.7 % High 11.5 - 14.5 % [facility] Hematocrit (Bld) [Volume fraction] 41.5 % 41.0 - 53.0 % [facility] Hemoglobin (Bld) [Mass/Vol] 14.4 g/dL 13.9 - 16.3 g/dL [facility] Interpretation and review of laboratory results Abnormal [facility] Lymphocytes (Bld) [#/Vol] 0.76 10*3/uL Low 1.00 - 4.80 K/uL [facility] Lymphocytes/100 WBC (Bld) 8.4 % Low 24.0 - 44.0 % [facility] MCH (RBC) [Entitic mass] 30.7 pg 26.0 - 34.0 pg [facility] MCHC (RBC) [Mass/Vol] 34.6 g/dL 32.0 - 35.9 g/dL [facility] MCV (RBC) [Entitic vol] 89 fL 80 - 100 fL [facility] Monocyte distribution width Auto (Bld) [Entitic vol] 17 NINF - 20 [facility] Monocytes (Bld) [#/Vol] 0.33 10*3/uL 0.20 - 1.00 K/uL [facility] Monocytes/100 WBC (Bld) 3.7 % 2.0 - 11.0 % [facility] Neutrophils (Bld) [#/Vol] 7.91 10*3/uL 1.50 - 8.00 K/uL [facility] Neutrophils/100 WBC (Bld) 87.2 % High 31.0 - 76.0 % [facility] Platelet mean volume (Bld) [Entitic vol] 7.4 fL Low 7.5 - 11.2 fL [facility] Platelets (Bld) [#/Vol] 277 10*3/uL 150 - 400 K/uL [facility] RBC (Bld) [#/Vol] 4.69 10*6/uL [facility] WBC (Bld) [#/Vol] 9.1 10*3/uL 4.5 - 11.5 K/uL [facility] Basophils (Bld) [#/Vol] 0.04 10*3/uL Normal 0.00-0.20 [facility] Comment on above: Performed By: #### C BCDSAT ####S PATHOLOGY [id number] [place], [place], Basophils/100 WBC (Bld) 0.5 % Normal <=1.9 [facility] Comment on above: Performed By: #### C BCDSAT ####S PATHOLOGY [id number] [place], [place], Eosinophils (Bld) [#/Vol] 0.03 10*3/uL Normal 0.00-0.70 [facility] Comment on above: Performed By: #### C BCDSAT ####[facility] PATHOLOGY [id number] [place] [address], Eosinophils/100 WBC (Bld) 0.3 % Normal 0.1-4.0 [facility] Comment on above: Performed By: #### C ORALAT ####[facility] PATHOLOGY [id number] [place] [address], Erythrocyte distribution width (RBC) [Ratio] 14.7 % High 11.5-14.5 [facility] Comment on above: Performed By: #### C ORALAT ####[facility] PATHOLOGY [id number] [place] [address], Hematocrit (Bld) [Volume fraction] 41.5 % Normal 41.0-53.0 [facility] Comment on above: Performed By: #### C ORALAT ####[facility] PATHOLOGY [id number] [place] [address], Hemoglobin (Bld) [Mass/Vol] 14.4 g/dL Normal 13.9-16.3 [facility] Comment on above: Performed By: #### C ORALAT ####[facility] PATHOLOGY [id number] [place] [address], Lymphocytes (Bld) [#/Vol] 0.76 10*3/uL Low 1.00-4.80 [facility] Comment on above: Performed By: #### C ORALAT ####[facility] PATHOLOGY [id number] [place] [address], Lymphocytes/100 WBC (Bld) 8.4 % Low 24.0-44.0 [facility] Comment on above: Performed By: #### C ORALAT ####[facility] PATHOLOGY [id number] [place] [address], MCH (RBC) [Entitic mass] 30.7 pg Normal 26.0-34.0 [facility] Comment on above: Performed By: #### C BCCLAYTONAT ####[facility] PATHOLOGY [id number] [place], [place], MCHC (RBC) [Mass/Vol] 34.6 g/dL Normal 32.0-35.9 [facility] Comment on above: Performed By: #### Wan MIXONAT ####[facility] PATHOLOGY [id number] [place], [place], MCV (RBC) [Entitic vol] 89 fL Normal 80-100 [facility] Comment on above: Performed By: #### Wan MIXONAT ####[facility] PATHOLOGY [id number] [place], [place], MONOCYTE DISTRIBUTION WIDTH 17 Normal <=20 [facility] [facility] Comment on above: Performed By: #### Wan MIXONAT ####[facility] PATHOLOGY [id number] [place], [place], Monocytes (Bld) [#/Vol] 0.33 10*3/uL Normal 0.20-1.00 The [facility] Comment on above: Performed By: #### Wan MIXONAT ####[facility] PATHOLOGY [id number] [place] [address], Monocytes/100 WBC (Bld) 3.7 % Normal 2.0-11.0 [facility] Comment on above: Performed By: #### Wan MIXONAT ####[facility] PATHOLOGY [id number] [place], [place], Neutrophils (Bld) [#/Vol] 7.91 10*3/uL Normal 1.50-8.00 [facility] Comment on above: Performed By: #### Wan MIXONAT ####S PATHOLOGY [id number] [place] [address], Neutrophils/100 WBC (Bld) 87.2 % High 31.0-76.0 [facility] Comment on above: Performed By: #### Wan MIXONAT ####S PATHOLOGY [id number] [place], [place], Platelet mean volume (Bld) [Entitic vol] 7.4 fL Low 7.5-11.2 [facility] Comment on above: Performed By: #### C BCDSAT ####S PATHOLOGY [id number] [place], [place], Platelets (Bld) [#/Vol] 277 10*3/uL Normal 150-400 [facility] Comment on above: Performed By: #### C BCDSAT ####[facility] PATHOLOGY [id number] [place], [place], RBC (Bld) [#/Vol] 4.69 10*6/uL Normal 4.50-5.90 [facility] Comment on above: Performed By: #### C BCDSAT ####[facility] PATHOLOGY [id number] [place], [place], WBC (Bld) [#/Vol] 9.1 10*3/uL Normal 4.5-11.5 [facility] Comment on above: Performed By: #### C BCDSAT ####[facility] PATHOLOGY [id number] [place], [place], CTA HEAD/NECK CODE STROKE W/ on 04-11-2025 CTA HEAD/NECK CODE STROKE W/ EXAMINATION: CTA HEAD/NECK CODE STROKE W/PRO 04/11/2025 11:17 PM CLINICAL HISTORY: right sided weakness ASSOCIATED DIAGNOSIS: right sided weakness ORDERING PROVIDER: ANDRÉS STACK TECHNOLOGISTS NOTE: COMPARISON: None TECHNIQUE: CT angiogram of the head and neck were obtained with intravenous contrast. Thin isotropic axial imaging was obtained through the brain and neck from the vertex to the thoracic inlet during rapid IV contrast administration for evaluation of the vessels. Multiplanar and 3D maximum intensity projection reformulations were created from the raw CT data which were interpreted in conjunction with the axial images to render the findings listed below. Before infusion of intravenous contrast, radiology personnel investigated the possibility of an allergic history and any history of reaction to iodinated contrast material. Contrast Protocol: Omnipaque 350 [>or =75lb] 75ml [<75 lb] 1 ml per 1 lb. INTRA-PROCEDURE MEDS: iohexol (OMNIPAQUE) 350 MG/ML injection 75 mL Route: Intravenous FINDINGS: CT BRAIN: No mass or acute hemorrhage. Age-indeterminate infarct versus dilated perivascular space in the left basal ganglia. The ventricles are within normal limits for age. The skull, paranasal sinuses and tympanomastoid cavities are normal. CT ARTERIOGRAM Extracranial Circulation: Aortic Arch: No significant stenosis in the proximal brachiocephalic vessels. Right Common Carotid: No significant stenosis. Right Internal Carotid: No significant stenosis, dissection, or pseudoaneurysm. Left Common Carotid: No significant stenosis. Left Internal Carotid: No significant stenosis, dissection, or pseudoaneurysm. Vertebral Arteries: Patent with no stenosis or dissection. Intracranial Circulation Anterior Circulation: The internal carotid arteries are patent. ACAs and MCAs are patent. No vessel cutoff, aneurysm or focal hemodynamically significant stenosis. Vertebrobasilar Circulation: Intracranial vertebral arteries, PICA/AICA branches, basilar artery, SCAs and door maker are patent. No vessel cutoff, aneurysm or focal hemodynamically significant stenosis. Other: No evidence of a soft tissue mass or lymphadenopathy in the neck or superior mediastinum. The lung apices are clear. IMPRESSION: Age-indeterminate infarct is versus dilated perivascular space in the left basal ganglia. There is no large vessel occlusion. Specifically, there is no intracranial ICA, M1, proximal M2 or basilar artery occlusion. No ICA stenosis. These findings were discussed with the stroke team by the neurointerventional service at the time of scan. MACRO: None Normal The [facility] CTA Head vessels and Neck ve ssels WO and W contrast IVOrdered By: Valeria Perez on 04-11-2025 CT DLP 6504.0 (mGy.cm) [employer] Work Phone: CT Series Head,Head,Head,Head, He ad,Head [facility] Work Phone: CTDI VOL 67.5 (mGy),10.5 (mGy),32.6 (mGy),59.2 (mGy),59.2 (mGy),59.2 (mGy) [facility] Work Phone: PHANTOM TYPE IEC Head Dosimetry Phantom,IEC Head Dosimetry Phantom,IEC Head Dosimetry Phantom,IEC Head Dosimetry Phantom,IEC Head Dosimetry Phantom,IEC Head Dosimetry Phantom [facility] Work Phone: [facility] Work Phone: CTA Head vessels and Neck ve ssels WO and W contrast Jagdish 04-11-2025 EXAMINATION: CTA HEAD/NECK CODE STROKE W/PRO 04/11/2025 11:17 PM CLINICAL HISTORY: right sided weakness ASSOCIATED DIAGNOSIS: right sided weakness ORDERING PROVIDER: ANDRÉS STACK TECHNOLOGISTS NOTE: COMPARISON: None TECHNIQUE: CT angiogram of the head and neck were obtained with intravenous contrast. Thin isotropic axial imaging was obtained through the brain and neck from the vertex to the thoracic inlet during rapid IV contrast administration for evaluation of the vessels. Multiplanar and 3D maximum intensity projection reformulations were created from the raw CT data which were interpreted in conjunction with the axial images to render the findings listed below. Before infusion of intravenous contrast, radiology personnel investigated the possibility of an allergic history and any history of reaction to iodinated contrast material. Contrast Protocol: Omnipaque 350 [>or =75lb] 75ml [<75 lb] 1 ml per 1 lb. INTRA-PROCEDURE MEDS: iohexol (OMNIPAQUE) 350 MG/ML injection 75 mL Route: Intravenous FINDINGS: CT BRAIN: No mass or acute hemorrhage. Age-indeterminate infarct versus dilated perivascular space in the left basal ganglia. The ventricles are within normal limits for age. The skull, paranasal sinuses and tympanomastoid cavities are normal. CT ARTERIOGRAM Extracranial Circulation: Aortic Arch: No significant stenosis in the proximal brachiocephalic vessels. Right Common Carotid: No significant stenosis. Right Internal Carotid: No significant stenosis, dissection, or pseudoaneurysm. Left Common Carotid: No significant stenosis. Left Internal Carotid: No significant stenosis, dissection, or pseudoaneurysm. Vertebral Arteries: Patent with no stenosis or dissection. Intracranial Circulation Anterior Circulation: The internal carotid arteries are patent. ACAs and MCAs are patent. No vessel cutoff, aneurysm or focal hemodynamically significant stenosis. Vertebrobasilar Circulation: Intracranial vertebral arteries, PICA/AICA branches, basilar artery, SCAs and door maker are patent. No vessel cutoff, aneurysm or focal hemodynamically significant stenosis. Other: No evidence of a soft tissue mass or lymphadenopathy in the neck or superior mediastinum. The lung apices are clear. IMPRESSION: Age-indeterminate infarct is versus dilated perivascular space in the left basal ganglia. There is no large vessel occlusion. Specifically, there is no intracranial ICA, M1, proximal M2 or basilar artery occlusion. No ICA stenosis. These findings were discussed with the stroke team by the neurointerventional service at the time of scan. MACRO: None RADIOLOGY Valeria Perez MD - 04/11/2025 EXAMINATION: CTA HEAD/NECK CODE STROKE W/PRO 04/11/2025 11:17 PM CLINICAL HISTORY: right sided weakness ASSOCIATED DIAGNOSIS: right sided weakness ORDERING PROVIDER: ANDRÉS STACK TECHNOLOGISTS NOTE: COMPARISON: None TECHNIQUE: CT angiogram of the head and neck were obtained with intravenous contrast. Thin isotropic axial imaging was obtained through the brain and neck from the vertex to the thoracic inlet during rapid IV contrast administration for evaluation of the vessels. Multiplanar and 3D maximum intensity projection reformulations were created from the raw CT data which were interpreted in conjunction with the axial images to render the findings listed below. Before infusion of intravenous contrast, radiology personnel investigated the possibility of an allergic history and any history of reaction to iodinated contrast material. Contrast Protocol: Omnipaque 350 [>or =75lb] 75ml [<75 lb] 1 ml per 1 lb. INTRA-PROCEDURE MEDS: iohexol (OMNIPAQUE) 350 MG/ML injection 75 mL Route: Intravenous FINDINGS: CT BRAIN: No mass or acute hemorrhage. Age-indeterminate infarct versus dilated perivascular space in the left basal ganglia. The ventricles are within normal limits for age. The skull, paranasal sinuses and tympanomastoid cavities are normal. CT ARTERIOGRAM Extracranial Circulation: Aortic Arch: No significant stenosis in the proximal brachiocephalic vessels. Right Common Carotid: No significant stenosis. Right Internal Carotid: No significant stenosis, dissection, or pseudoaneurysm. Left Common Carotid: No significant stenosis. Left Internal Carotid: No significant stenosis, dissection, or pseudoaneurysm. Vertebral Arteries: Patent with no stenosis or dissection. Intracranial Circulation Anterior Circulation: The internal carotid arteries are patent. ACAs and MCAs are patent. No vessel cutoff, aneurysm or focal hemodynamically significant stenosis. Vertebrobasilar Circulation: Intracranial vertebral arteries, PICA/AICA branches, basilar artery, SCAs and door maker are patent. No vessel cutoff, aneurysm or focal hemodynamically significant stenosis. Other: No evidence of a soft tissue mass or lymphadenopathy in the neck or superior mediastinum. The lung apices are clear. IMPRESSION: Age-indeterminate infarct is versus dilated perivascular space in the left basal ganglia. There is no large vessel occlusion. Specifically, there is no intracranial ICA, M1, proximal M2 or basilar artery occlusion. No ICA stenosis. These findings were discussed with the stroke team by the neurointerventional service at the time of scan. MACRO: None [facility] Radiology Study observation (narrative) [facility] ED Noteson 04-11-2025 [employer] Authentication Interface Message Text Bed: 11 Expected date: Expected time: Means of arrival: Comments: Aden FERGUSON [facility] ED Provider Noteson 04-11-20 [employer] Authentication Interface Message Text Attestation signed by Andrés Stack MD at 04/15/2025 10:23 AM ATTENDING NOTE I saw and evaluated the patient. I personally obtained the hyman and critical portions of the history and physical exam. I reviewed the resident's documentation and discussed the patient with the resident. I agree with the resident's medical decision making as documented in the resident's note. Andrés Stack MD EMERGENCY DEPARTMENT - VISIT NOTE -------- HISTORY OF PRESENT ILLNESS ---- No chief complaint on file. Slurry Blender: not needed - patient preferred language is Tanzanian. The history is provided by the Patient. Nash Ferguson is a 74 year old male hxd of RBBB, HTN, DM, osteoarthritis presenting to the ED for concern for onset of stroke. Patient states that his last known well was around 6:30 p.m. this evening while he was on [facility]. Patient states that he woke up from a nap around 7:00 p.m. and stated that he was having right hand numbness that progressed to his right arm and right leg that progressively got better. On arrival to the emergency department the patient states that he is having numbness to the right lower extremity and patient's is stating that he has been having some confusion as well. On initial NIH the patient was at a score of 3 with ataxia of the right upper and lower extremity as well as subjective sensory changes to the right lower extremity. Patient was otherwise not complaining of any chest pain, shortness of breath, vision changes, headache, fevers, chills, abdominal pain, nausea, vomiting. PAST HISTORY Pertinent Past History: Medical History[1] Problem List[2] Pertinent Social History: Social History[3] PHYSICAL EXAM Physical Exam Vitals and nursing note reviewed. Constitutional: General: He is not in acute distress. Appearance: He is not ill-appearing. HENT: Head: Normocephalic and atraumatic. Nose: Nose normal. Mouth/Throat: Mouth: Mucous membranes are moist. Pharynx: Oropharynx is clear. Cardiovascular: Rate and Rhythm: Normal rate and regular rhythm. Pulses: Normal pulses. Heart sounds: Normal heart sounds. Pulmonary: Effort: Pulmonary effort is normal. Breath sounds: Normal breath sounds. Abdominal: General: Abdomen is flat. Palpations: Abdomen is soft. Musculoskeletal: General: Normal range of motion. Cervical back: Normal range of motion. Skin: General: Skin is warm and dry. Neurological: Mental Status: He is alert. Sensory: Sensory deficit present. Gait: Gait abnormal. Comments: 5/5 strength in the upper and lower extremity bilaterally. 5/5 sensation in the RUE and LUE and LLE 4/5 sensation in the RLE Ataxia noted to the RUE and RLE No visual changes or loss MEDICAL DECISION MAKING and ED COURSE Nursing triage and assessment notes reviewed and incorporated. Review of External (Non- ED) Notes: See ED Course Discussion with External Provider: Milk Tanker Driver from Neurology service recommends admission to the stroke service as the patient is noted to have a left sided basal ganglia occlusion Independent Test Interpretation: CT scans personally reviewed and interpreted, See ED Course. Final decision-making pending radiology read. Evaluated by EM attending Andrés Stack Course: ED Course as of 04/12/25 0204 [facility] Apr 11, [id number] Chart Review from 08/19/21: 1. Arthritis of carpometacarpal (CMC) joint of left thumb M18.12 2. S/P carpal tunnel release Z98.890 3. 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 S/P cubital tunnel release Z98.890 [NG] 2320 Complete Blood Count W/Diff(!): WBC 9.1 RBC 4.69 Hemoglobin 14.4 Hematocrit 41.5 MCV 89 MCH 30.7 MCHC 34.6 Platelet 277 RDW-CV% 14.7(!) MPV 7.4(!) Neutrophils 87.2(!) Neutrophil # 7.91 Lymphocytes 8.4(!) Lymph Absolute 0.76(!) Monocytes 3.7 Monocyte Absolute 0.33 Eosinophil 0.3 Eosinophil Absolute 0.03 Basophils 0.5 Basophil # 0.04 MDW 17 No anemia or leukocytosis noted on CBC [NG] 2320 Fingerstick Glucose(!): 164 [NG] 2340 CTA Head/Neck Stroke Protocol With/Without Contrast Age-indeterminate infarct is versus dilated perivascular space in the left basal ganglia. There is no large vessel occlusion. Specifically, there is no intracranial ICA, M1, proximal M2 or basilar artery occlusion. No ICA stenosis. These findings were discussed with the stroke team by the neurointerventional service at the time of scan. [NG] 2341 Magnesium: 2.1 wnl [NG] 2341 Basic Metabolic Panel(!): Gl (more content not included)... Normal [facility] ED Triage Noteson 04-11-2025 [employer] Authentication Interface Message Text Pt BIB by MLF from [facility] after pt waking up from nap at 1900 with R sided numbness/weakness, per (at bedside) pt seemed confused and had some slurred speech. LKW 1830. Denies hx of stroke/thinners/head injury. Normal [facility] GLUCOSE, FINGERSTICK-IN OFFI CEon 04-11-2025 Glucose [Mass/Vol] 164 mg/dL High 74 - 109 mg/dL [facility] Interpretation and review of laboratory results Abnormal [facility] Glucose [Mass/Vol] 164 mg/dL High 74-109 [facility] Comment on above: Performed By: #### H B A1C #### [facility] [address] [place], [address] HIGH SENSITIVITY TROPONIN Io n 04-11-2025 Troponin I.cardiac DL <= 0.01 ng/mL [Mass/Vol] 6 ng/L NINF - 15 ng/L [facility] HS TROPONIN I 6 ng/L Normal <=15 [facility] Comment on above: Order Comment: [place] troponin can result from acute myocardial infarction (coronary etiology) or myocardial injury (non-coronary etiology) - always consider both.Interval test times for ruling out acute coronary syndrome (ACS) are 2 hours.All results are reported in whole numbers representing ng/L. Results obtained by different labs or methods are not comparable.For ruling out ACS, lab values are always used in conjunction with clinical risk assessment (e.g., HEART score*).Interpreting initial value in ruling out ACSLess than 5 ng/L - below lower limit of quantification - essentially rules out ACS if chest pain began more than 3 hours prior to test and assessed risk is low.5 - 49 ng/L - indeterminate - consider repeat value in 2 hours depending on risk assessment.50 ng/L or greater - concern for ACS or myocardial injury.Interpreting delta values in ruling out ACS.Always compare to initial value obtained:Absolute change (rise or fall) of less than 5 ng/L - essentially rules out ACS if assessed clinical risk is low.Absolute change (rise or fall) of 5 - 19 ng/L - indeterminate - consider another repeat value in 2 hours depending on assessed clinical risk.Absolute change (rise or fall) of 20 ng/L or greater - concern for ACS or myocardial injury.Any absolute value of 50 ng/L or greater - concern for ACS or myocardial injury.*When using hsTnI to calculate the HEART score, use the 99% Upper Reference Limit of 15 ng/L as the normal limit (i.e. <=15 ng/L = 0 points, 16-45 ng/L = 1 point, >45 ng/L = 2 points).DispositionIntermediate hsTnI values DO NOT mandate admission to a cardiology or telemetry unit. They need to be interpreted within the clinical context using provider judgement. Performed By: #### H B A1C #### [facility] [address] [place], [address] MAGNESIUMon 04-11-2025 Interpretation and review of laboratory results Normal [facility] Magnesium [Mass/Vol] 2.1 mg/dL 1.9 - 2 .7 mg/dL [facility] Magnesium [Mass/Vol] 2.1 mg/dL Normal 1.9-2.7 [facility] Comment on above: Performed By: #### H B A1C #### [facility] [address] [place], [address] No Panel Informationon 04-11 [facility] Troponin I.cardiac DL <= 0.0 1 ng/mL [Mass/Vol]on 04-11-2025 Interpretation and review of laboratory results Normal [facility] Elevated troponin ca n result from acute myocardial infarction (coronary etiology) or myocardial injury (non-coronary etiology) - always consider both. Interval test times for ruling out acute coronary syndrome (ACS) are 2 hours. All results are reported in whole numbers representing ng/L. Results obtained by different labs or methods are not comparable. For ruling out ACS, lab values are always used in conjunction with clinical risk assessment (e.g., HEART score*). Interpreting initial value in ruling out ACS Less than 5 ng/L - below lower limit of quantification - essentially rules out ACS if chest pain began more than 3 hours prior to test and assessed risk is low. 5 - 49 ng/L - indeterminate - consider repeat value in 2 hours depending on risk assessment. 50 ng/L or greater - concern for ACS or myocardial injury. Interpreting delta values in ruling out ACS. Always compare to initial value obtained: Absolute change (rise or fall) of less than 5 ng/L - essentially rules out ACS if assessed clinical risk is low. Absolute change (rise or fall) of 5 - 19 ng/L - indeterminate - consider another repeat value in 2 hours depending on assessed clinical risk. Absolute change (rise or fall) of 20 ng/L or greater - concern for ACS or myocardial injury. Any absolute value of 50 ng/L or greater - concern for ACS or myocardial injury. *When using hsTnI to calculate the HEART score, use the 99% Upper Reference Limit of 15 ng/L as the normal limit (i.e. <=15 ng/L = 0 points, 16-45 ng/L = 1 point, >45 ng/L = 2 points). Disposition Intermediate hsTnI values DO NOT mandate admission to a cardiology or telemetry unit. They need to be interpreted within the clinical context using provider judgement. [facility] 12 Lead EKG performed by [facility] on 12-18-2024 12 Lead EKG performed by [facility] [address] [place] [address] 12 Lead EKG performed by [facility] 12/18/24 1559 MR#: [id number] Acct: [id number] Name: NASH FERGUSON Rep #: [id number] : 1950 74 From: Topher Poe MD Attending Dr: Dr. Topher Poe MD Status: DEP A MB Ordering Dr: Topher Poe MD Date: 12/18/24 [place] [facility] [place] M C Admitted: [facility]/12 Lead EKG performed by [facility] ECG Report Interpretation ----Sinus Tachycardia - frequent PAC s # PACs = 2.-Incomplete right bundle branch block and left axis -anterior fascicular block. -Nonspecific ST depression + Negative precordial T-waves -Nondiagnostic -Possible Anteroseptal ischemia. ABNORMAL Electronically signed on 12/19/2024 at 09:41 by Topher Poe [employer] 12/19/24 0942 Date Topher Poe MD CC: SENIOR ACCOUNTS PAYABLE CLERKMary Ellen Josefina Zavaleta Date Dictated: 12/18/24 155 Date Transcribed: 12/18/241558 Contour Sander: [place] Signed Normal [facility] Cardiology Visit Reporton Cardiology Visit Report [facility] [address] [place] [address] OFFICE VISIT Date of Service: 12/18/24 MR#: [id number] Acct: [id number] Name: NASH FERGUSON Rep #: [id number] : 1950 Provider: Dr. Topher Poe MD Age/Sex: 74/M [place] [facility] Status: Signed HPI HPI History of Present Illness Details: 74-year-old man with no previous cardiac history other than hypertension anxiety diabetes mellitus who presents for evaluation. He denied any chest pain or shortness of breath or paroxysmal nocturnal dyspnea or pedal edema he has not had any neck arm or jaw discomfort suggest angina. He thinks he might have been told at some point that he had a cardiac murmur. He did undergo an echocardiogram in 2019 which demonstrated mild calcification of the aortic valve leaflets. . 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 He denies chest, arm, jaw, or neck discomfort. He denies palpitations. He states bilateral lower extremity edema. He denies claudication. He denies shortness of breath with activity, shortness of breath at rest, orthopnea, or PND. He denies chronic cough. He denies significant, sudden weight gain. He denies lightheadedness, dizziness, near-syncope, or syncope. He denies blood in urine, blood in stool, or epistaxis. He denies fever with chills. He denies myalgia. He states fatigue. His exercise level has remained stable. His EKG today demonstrates sinus tachycardia with a right bundle branch block which is chronic and no acute changes. Intake Vital Signs 10/25/23 15:23 11/05/24 08:30 12/18/24 15:36 Height 6 ft 4 in 6 ft 4 in 6 ft 4 in Weight: 274 lb BMI 33.3 BP 129/71 H Blood Pressure Location Lt brachial Position Sitting Respiration 16 Pulse 79 Pulse Source Monitor Intake Visit Reasons: 1 Y FU Slurry Blender Required: No Accompanied by: Self Is patient in pain?: No Allergies etanercept (From Enbrel) Allergy (Verified 12/18/24 15:41) Rash methylprednisolone Allergy (Verified 12/18/24 15:41) Rash rivaroxaban (From Xarelto) Adverse Reaction (Intermediate, Verified 12/18/24 15:41) Rash cephalexin (From Keflex) Adverse Reaction (Mild, Verified 12/18/24 15:41) Rash clindamycin Adverse Reaction (Mild, Verified 12/18/24 15:41) GI upset Medications ???Medication ???Instructions ???Recorded ???Confirmed ???Type ascorbic acid (vitamin C) 500 mg 1,000 mg PO QDAY 09/05/18 12/18/24 History capsule lisdexamfetamine 70 mg capsule 70 mg PO DAILY 09/05/18 12/18/24 H istory (Vyvanse) losartan 25 mg tablet (Cozaar) 25 mg PO DAILY 09/05/18 12/18/24 H istory multivitamin (Multiple Vitamins 1 tab PO DAILY 09/05/18 12/18/24 H istory tablet) sertraline 100 mg tablet (Zoloft) 100 mg PO DAILY 09/05/18 12/18/24 History zinc 50 mg tablet 50 mg PO DAILY 09/05/18 12/18/24 H istory lutein 20 mg capsule 20 mg PO DAILY 01/13/20 12/18/24 H istory mecobalamin (vitamin B12) 1,000 1,000 mcg sublingual DAILY 0 12/18/24 History mcg disintegrating tablet,sublingual chondroitin sulfate A 250 mg 1,200 mg PO DAILY 10/27/22 5 History capsule glucosamine HCl 1,500 mg tablet 1,500 mg PO DAILY 10/27/22 5 History lysine 500 mg tablet 500 mg PO DAILY 10/27/22 12/18/24 History tramadol 50 mg tablet 50 mg PO BID PRN 10/27/22 12/18/24 History blood sugar diagnostic (Accu-Chek #10 ea 07/27/23 11/05/24 History Guide test strips) blood-glucose meter (Accu-Chek #1 ea 07/27/23 11/05/24 History Guide Me Glucose Meter) lancets (Accu-Chek Softclix #100 ea 07/27/23 11/05/24 History Lancets) acetaminophen 500 mg capsule 1,000 mg PO TID PRN 10/25/2312/18 History cholecalciferol (vitamin D3) 125 10,000 unit PO DAILY 10/25/2311/30 History mcg (5,000 unit) capsule docusate sodium 100 mg capsule 100 mg PO DAILY 10/25/23 12/18/24 History (Colace) metformin 500 mg tablet,extended 500 mg PO QDAY 10/25/23 12/18/24 H istory release 24 hr methylcellulose (laxative) 3 tbsp PO DAILY 10/25/23 12/18/24 History methylsulfonylmethane 1,000 mg 1,000 mg PO QDAY 10/25/23 12/18/24 History tablet Have you fallen in the past year?: No PFSH Medical History RLS (restless legs syndrome) RBBB Kidney stones Iliac aneurysm Essential hypertension Hyperlipidemia Anxiety Myalgia Cough Arthralgia Osteoarthritis of both hands Psoriasis ADHD Diabetes mellitus Psoriatic arthritis Abnormal CXR (chest x-ray) Surgical History H/O dilation of urethra H/O inguinal rodrigo (more content not included)... Normal [facility] .Auto Diffon 12-15-2024 Basophil, Absolute 0.0 10 3/mcL Normal 0.0-0.3 [facility] Comment on above: Performed By: #### A NEELAM, ADIFF, CBC, PSA, GFR, A1C, CMP, LIPID, VIDH #### [address] [address] Basophils/100 WBC (Bld) 0.7 % Normal 0.0-2.5 [facility] Comment on above: Performed By: #### A NEELAM, ADIFF, CBC, PSA, GFR, A1C, CMP, LIPID, VIDH #### [address] [address] Eosinophil, Absolute 0.2 10 3/mcL Normal 0.0-0.7 [facility] Comment on above: Performed By: #### A NEELAM, ADIFF, CBC, PSA, GFR, A1C, CMP, LIPID, VIDH #### [address] [address] Eosinophils/100 WBC (Bld) 3.0 % Normal 0.0-6.0 [facility] Comment on above: Performed By: #### A NEELAM, ADIFF, CBC, PSA, GFR, A1C, CMP, LIPID, VIDH #### [address] [address] Lymphocyte, Absolute 1.5 10 3/mcL Normal 0.9-4.3 [facility] Comment on above: Performed By: #### A NEELAM, ADIFF, CBC, PSA, GFR, A1C, CMP, LIPID, VIDH #### [address] [address] Lymphocytes/100 WBC (Bld) 23.0 % Normal 20.0-40.0 [facility] Comment on above: Performed By: #### A NEELAM, ADIFF, CBC, PSA, GFR, A1C, CMP, LIPID, VIDH #### [address] [address] Monocyte, Absolute 0.5 10 3/mcL Normal 0.1-1.4 [facility] Comment on above: Performed By: #### A NEELAM, ADIFF, CBC, PSA, GFR, A1C, CMP, LIPID, VIDH #### [address] [address] Monocytes/100 WBC (Bld) 7.8 % Normal 2.0-13.0 [facility] Comment on above: Performed By: #### A NEELAM, ADIFF, CBC, PSA, GFR, A1C, CMP, LIPID, VIDH #### [address] [place], [place] [address] Neutrophils/100 WBC (Bld) 65.5 % Normal 50.0-75.0 [facility] Comment on above: Performed By: #### A NEELAM, ADIFF, CBC, PSA, GFR, A1C, CMP, LIPID, VIDH #### [address] [place], [place] [address] .GFRon 12-15-2024 Estimated Glomerular Filtration Rate 86 ml/min/1.73sqm Normal [facility] Comment on above: Result Comment: Stages of Chronic Kidney Disease (CKD) Stage Description eGFR(ml/min/1.73 sq.m.) CKD 1 Normal kidney function or >=90 normal kindney function with possible kidney damage (ex. Proteinuria) CKD 2 Kidney damage with mild loss 60-89 of kidney function CKD 3a Mild to moderate loss of kidney 45-59 function CKD 3b Moderate to severe loss of 30-44 of kindey function CKD 4 Severe loss of kidney function 15-29 CKD 5 Kidney failure <15 Note: (go live 2024) the eGFR calculation was updated to the 2020 CKD-EPI creatinine equation without a race factor to calculate the eGFR results. Performed By: #### A NEELAM, ADIFF, CBC, PSA, GFR, A1C, CMP, LIPID, VIDH #### [address] [place], [place] [address] .NEUABSon 12-15-2024 Neutrophil, Absolute 4.3 10 3/mcL Normal 2.3-8.1 [facility] Comment on above: Performed By: #### A NEELAM, ADIFF, CBC, PSA, GFR, A1C, CMP, LIPID, VIDH #### [address] [place], [place] [address] A1Con 12-15-2024 Glucose [Mass/Vol] 143 mg/dL Normal [facility] Comment on above: Result Comment: Елена mated Average Glucose calculated by equation ((28.7xA1C)-46.7) Estimated average glucose (eAG) is a calculated value from Hemoglobin A1C and is bilingual inside sales representative of the average blood glucose level in the last 2-3 month period. Normal range: less than 114 mg/dL Performed By: #### A NEELAM, ADIFF, CBC, PSA, GFR, A1C, CMP, LIPID, VIDH #### [address] [address] HbA1c (Bld) [Mass fraction] 6.6 % High 4.3-6.4 [facility] Comment on above: Performed By: #### A NEELAM, ADIFF, CBC, PSA, GFR, A1C, CMP, LIPID, VIDH #### [address] [address] CBCon 12-15-2024 Erythrocyte distribution width (RBC) [Ratio] 14.2 % Normal 11.5-15.5 [facility] Comment on above: Performed By: #### A NEELAM, ADIFF, CBC, PSA, GFR, A1C, CMP, LIPID, VIDH #### [place] [address] Hematocrit (Bld) [Volume fraction] 42.0 % Normal 40.0-52.0 [facility] Comment on above: Performed By: #### A NEELAM, ADIFF, CBC, PSA, GFR, A1C, CMP, LIPID, VIDH #### [address] [address] Hgb 14.0 G/dL Normal 13.0-17.5 [facility] Comment on above: Performed By: #### A NEELAM, ADIFF, CBC, PSA, GFR, A1C, CMP, LIPID, VIDH #### [place] [address] MCH (RBC) [Entitic mass] 30.5 pg Normal 27.0-33.0 [facility] Comment on above: Performed By: #### A NEELAM, ADIFF, CBC, PSA, GFR, A1C, CMP, LIPID, VIDH #### [address] [address] MCHC 33.2 G/dL Normal 32.0-36.0 [facility] Comment on above: Performed By: #### A NEELAM, ADIFF, CBC, PSA, GFR, A1C, CMP, LIPID, VIDH #### [address] [address] MCV (RBC) [Entitic vol] 91.8 fL Normal 81.0-100.0 [facility] Comment on above: Performed By: #### A NEELAM, ADIFF, CBC, PSA, GFR, A1C, CMP, LIPID, VIDH #### [address] [address] Platelet 267 10 3/mcL Normal 150-450 [facility] Comment on above: Performed By: #### A NEELAM, ADIFF, CBC, PSA, GFR, A1C, CMP, LIPID, VIDH #### [address] [address] Platelet mean volume (Bld) [Entitic vol] 7.5 fL Normal 6.4-10.5 [facility] Comment on above: Performed By: #### A NEELAM, ADIFF, CBC, PSA, GFR, A1C, CMP, LIPID, VIDH #### [address] [address] RBC 4.58 10 6/mcL Normal 4.50-6.00 [facility] Comment on above: Performed By: #### A NEELAM, ADIFF, CBC, PSA, GFR, A1C, CMP, LIPID, VIDH #### [address] [address] WBC 6.6 10 3/mcL Normal 4.5-10.8 [facility] Comment on above: Performed By: #### A NEELAM, ADIFF, CBC, PSA, GFR, A1C, CMP, LIPID, VIDH #### [address] [address] CMPon 12-15-2024 Albumin Level 3.3 G/dL Low 3.4-4.8 [facility] Comment on above: Performed By: #### A NEELAM, ADIFF, CBC, PSA, GFR, A1C, CMP, LIPID, VIDH #### [address] [address] Albumin/Globulin [Mass ratio] 1.0 {ratio} Low 1.1-2.5 [facility] Comment on above: Performed By: #### A NEELAM, ADIFF, CBC, PSA, GFR, A1C, CMP, LIPID, VIDH #### [address] [address] ALP [Catalytic activity/Vol] 81 U/L Normal 40-135 [facility] Comment on above: Performed By: #### A NEELAM, ADIFF, CBC, PSA, GFR, A1C, CMP, LIPID, VIDH #### [address] [address] ALT [Catalytic activity/Vol] 22 U/L Normal 16-63 [facility] Comment on above: Performed By: #### A NEELAM, ADIFF, CBC, PSA, GFR, A1C, CMP, LIPID, VIDH #### [place] [address] AST [Catalytic activity/Vol] 14 U/L Normal 10-40 [facility] Comment on above: Performed By: #### A NEELAM, ADIFF, CBC, PSA, GFR, A1C, CMP, LIPID, VIDH #### [place] [address] Bili Total 0.5 mg/dL Normal 0.2-1.0 [facility] Comment on above: Result Comment: Use of this assay is not recommended for patients undergoing treatment with eltrombopag due to the potential for falsely elevated results. Performed By: #### A NEELAM, ADIFF, CBC, PSA, GFR, A1C, CMP, LIPID, VIDH #### [address] [address] BUN/Creatinine Ratio 12 ratio Normal 7-27 [facility] Comment on above: Performed By: #### A NEELAM, ADIFF, CBC, PSA, GFR, A1C, CMP, LIPID, VIDH #### [address] [address] Calcium [Mass/Vol] 8.8 mg/dL Normal 8.4-10.2 [facility] Comment on above: Performed By: #### A NEELAM, ADIFF, CBC, PSA, GFR, A1C, CMP, LIPID, VIDH #### [address] [address] Chloride [Moles/Vol] 106 mmol/L Normal 98-107 [facility] Comment on above: Performed By: #### A NEELAM, ADIFF, CBC, PSA, GFR, A1C, CMP, LIPID, VIDH #### [place] [id number] CO2 [Moles/Vol] 29 mmol/L Normal 23-31 [facility] Comment on above: Performed By: #### A NEELAM, ADIFF, CBC, PSA, GFR, A1C, CMP, LIPID, VIDH #### [place] [address] Creatinine [Mass/Vol] 0.95 mg/dL Normal 0.67-1.17 [facility] Comment on above: Performed By: #### A NEELAM, ADIFF, CBC, PSA, GFR, A1C, CMP, LIPID, VIDH #### [address] [address] Electrolyte Balance 6.0 mEq/L Normal 4.0-15.0 [facility] Comment on above: Performed By: #### A NEELAM, ADIFF, CBC, PSA, GFR, A1C, CMP, LIPID, VIDH #### [address] [address] Globulin 3.3 G/dL Normal 2.7-4.4 [facility] Comment on above: Performed By: #### A NEELAM, ADIFF, CBC, PSA, GFR, A1C, CMP, LIPID, VIDH #### [place] [address] Glucose [Mass/Vol] 130 mg/dL High 83-110 [facility] Comment on above: Performed By: #### A NEELAM, ADIFF, CBC, PSA, GFR, A1C, CMP, LIPID, VIDH #### [place] [address] Potassium [Moles/Vol] 4.3 mmol/L Normal 3.5-5.1 [facility] Comment on above: Performed By: #### A NEELAM, ADIFF, CBC, PSA, GFR, A1C, CMP, LIPID, VIDH #### [address] [place], [place] [address] Sodium [Moles/Vol] 141 mmol/L Normal 136-145 [facility] Comment on above: Performed By: #### A NEELAM, ADIFF, CBC, PSA, GFR, A1C, CMP, LIPID, VIDH #### [address] [place], [place] [address] Total Protein 6.6 G/dL Normal 6.4-8.2 [facility] Comment on above: Performed By: #### A NEELAM, ADIFF, CBC, PSA, GFR, A1C, CMP, LIPID, VIDH #### [address] [place], [place] [address] Urea nitrogen [Mass/Vol] 11 mg/dL Normal 7-18 [facility] Comment on above: Performed By: #### A NEELAM, ADIFF, CBC, PSA, GFR, A1C, CMP, LIPID, VIDH #### [address] [address] LABORATORYOrdered By: SYSTEM SYSTEM on 12-15-2024 25-hydroxyvitamin D3 [Mass/Vol] 119.8 ng/mL Invalid Interpretation Code AO ADM SS Comment on above: Interpretive Data: I nterpretive Values Based on Total 25(OH) Vitamin D: Deficient <20 ng/mL Insufficient 20 - <30 ng/mL Sufficient 30-100 ng/mL Albumin BCP dye [Mass/Vol] 3.3 G/dL Low 3.4 - 4.8 G/dL AO ADM SS Albumin/Globulin [Mass ratio] 1.0 {ratio} Low 1.1 - 2.5 ratio AO ADM SS ALP [Catalytic activity/Vol] 81 U/L Normal 40 - 135 U/L AO ADM SS ALT With P-5'-P [Catalytic activity/Vol] 22 U/L Normal 16 - 63 U/L AO ADM SS AST With P-5'-P [Catalytic activity/Vol] 14 U/L Normal 10 - 40 U/L AO ADM SS Basophils (Bld) [#/Vol] 0.0 103/mcL Normal 0.0 - 0.3 10^3/mcL AO Workflow SS Basophils/100 WBC (Bld) 0.7 % Normal 0.0 - 2.5 % AO Workflow SS Bilirubin [Mass/Vol] 0.5 mg/dL Normal 0.2 - 1 .0 mg/dL AO ADM SS Comment on above: Interpretive Data: U se of this assay is not recommended for patients undergoing treatment with eltrombopag due to the potential for falsely elevated results. Calcium [Mass/Vol] 8.8 mg/dL Normal 8.4 - 10. 2 mg/dL AO ADM SS Chloride [Moles/Vol] 106 mmol/L Normal 98 - 10 7 mmol/L AO ADM SS CO2 [Moles/Vol] 29 mmol/L Normal 23 - 31 mmol/L AO ADM SS Creatinine [Mass/Vol] 0.95 mg/dL Normal 0.67 - 1.17 mg/dL AO ADM SS Electrolyte Balance 6.0 mEq/L Normal 4.0 - 15 .0 mEq/L AO ADM SS Eosinophil, Absolute 0.2 103/mcL Normal 0.0 - 0 .7 10^3/mcL AO Workflow SS Eosinophils/100 WBC (Bld) 3.0 % Normal 0.0 - 6.0 % AO Workflow SS Erythrocyte distribution width (RBC) [Ratio] 14.2 % Normal 11.5 - 15.5 % AO Workflow SS Estimated Glomerular Filtration Rate 86 ml/min/1.73sqm Invalid Interpretation Code AO Chemistry S Comment on above: Interpretive Data: Stages of Chronic Kidney Disease (CKD) Stage Description eGFR(ml/min/1.73 sq.m.) CKD 1 Normal kidney function or >=90 normal kindney function with possible kidney damage (ex. Proteinuria) CKD 2 Kidney damage with mild loss 60-89 of kidney function CKD 3a Mild to moderate loss of kidney 45-59 function CKD 3b Moderate to severe loss of 30-44 of kindey function CKD 4 Severe loss of kidney function 15-29 CKD 5 Kidney failure <15 Note: (go live 2024) the eGFR calculation was updated to the 2020 CKD-EPI creatinine equation without a race factor to calculate the eGFR results. Globulin 3.3 G/dL Normal 2.7 - 4.4 G/dL AO ADM SS Glucose [Mass/Vol] 130 mg/dL High 83 - 110 mg/dL AO ADM SS Glucose [Mass/Vol] 143 mg/dL Invalid Interpretation Code AO Chemistry S Comment on above: Interpretive Data: E stimated average glucose (eAG) is a calculated value from Hemoglobin A1C and is bilingual inside sales representative of the average blood glucose level in the last 2-3 month period. Normal range: less than 114 mg/dL HbA1c (Bld) [Mass fraction] 6.6 % High 4.3 - 6.4 % AO ADM SS Hematocrit (Bld) [Volume fraction] 42.0 % Normal 40.0 - 52.0 % AO Workflow SS Hemoglobin (Bld) [Mass/Vol] 14.0 G/dL Normal 13.0 - 17.5 G/dL AO Workflow SS Lymphocytes (Bld) [#/Vol] 1.5 103/mcL Normal 0.9 - 4.3 10^3/mcL AO Workflow SS Lymphocytes/100 WBC (Bld) 23.0 % Normal 20.0 - 40.0 % AO Workflow SS MCH (RBC) [Entitic mass] 30.5 pg Normal 27.0 - 33.0 pg AO Workflow SS MCHC 33.2 G/dL Normal 32.0 - 36.0 G/dL AO Workflow SS MCV (RBC) [Entitic vol] 91.8 fL Normal 81.0 - 100.0 fL AO Workflow SS Monocytes (Bld) [#/Vol] 0.5 103/mcL Normal 0.1 - 1.4 10^3/mcL AO Workflow SS Monocytes/100 WBC (Bld) 7.8 % Normal 2.0 - 13.0 % AO Workflow SS Neutrophils (Bld) [#/Vol] 4.3 103/mcL Normal 2.3 - 8.1 10^3/mcL AO Workflow SS Neutrophils/100 WBC (Bld) 65.5 % Normal 50.0 - 75.0 % AO Workflow SS Platelet mean volume (Bld) [Entitic vol] 7.5 fL Normal 6.4 - 10.5 fL AO Workflow SS Platelets (Bld) [#/Vol] 267 103/mcL Normal 150 - 450 10^3/mcL AO Workflow SS Potassium [Moles/Vol] 4.3 mmol/L Normal 3.5 - 5.1 mmol/L AO ADM SS Prostate specific Ag [Mass/Vol] 1.44 ng/mL Normal 0.00 - 4.00 ng/mL AO ADM SS Protein [Mass/Vol] 6.6 G/dL Normal 6.4 - 8.2 G/dL AO ADM SS RBC (Bld) [#/Vol] 4.58 106/mcL Normal 4.50 - 6.0 0 10^6/mcL AO Workflow SS Sodium [Moles/Vol] 141 mmol/L Normal 136 - 145 mmol/L AO ADM SS Urea nitrogen [Mass/Vol] 11 mg/dL Normal 7 - 18 mg/dL AO ADM SS Urea nitrogen/Creatinine [Mass ratio] 12 ratio Normal 7 - 27 ratio AO ADM SS WBC (Bld) [#/Vol] 6.6 103/mcL Normal 4.5 - 10.8 10^3/mcL AO Workflow SS LABORATORYOrdered By: Wilton Plascencia on 12-15-2024 Cholesterol [Mass/Vol] 179 mg/dL Normal 0 - 200 mg/dL AO ADM SS Comment on above: Interpretive Data: C holesterol Reference Interval: Less than 200 Desirable 200-239 Borderline high risk 240 and above High risk Cholesterol in HDL [Mass/Vol] 42 mg/dL Normal 40 - 60 mg/dL AO ADM SS Cholesterol in LDL [Mass/Vol] 95 mg/dL Normal 0 - 130 mg/dL AO ADM SS Triglyceride [Mass/Vol] 208 mg/dL High 0 - 150 mg/dL AO ADM SS Comment on above: Interpretive Data: T riglyceride Reference Interval: Less than 150 Normal 150-199 Borderline high risk 200-499 High risk 500 or higher Very high risk LIPIDon 12-15-2024 Cholesterol [Mass/Vol] 179 mg/dL Normal 0-200 [facility] Comment on above: Result Comment: Chol esterol Reference Interval: Less than 200 Desirable 200-239 Borderline high risk 240 and above High risk Performed By: #### A NEELAM, ADIFF, CBC, PSA, GFR, A1C, CMP, LIPID, VIDH #### [address] [place], [place] [address] Cholesterol in HDL [Mass/Vol] 42 mg/dL Normal 40-60 [facility] Comment on above: Performed By: #### A NEELAM, ADIFF, CBC, PSA, GFR, A1C, CMP, LIPID, VIDH #### [address] [place], [place] [address] Cholesterol in LDL [Mass/Vol] 95 mg/dL Normal 0-130 [facility] Comment on above: Performed By: #### A NEELAM, ADIFF, CBC, PSA, GFR, A1C, CMP, LIPID, VIDH #### [address] [place], [place] [address] Triglyceride [Mass/Vol] 208 mg/dL High 0-150 [facility] Comment on above: Result Comment: Trig lyceride Reference Interval: Less than 150 Normal 150-199 Borderline high risk 200-499 High risk 500 or higher Very high risk Performed By: #### A NEELAM, ADIFF, CBC, PSA, GFR, A1C, CMP, LIPID, VIDH #### [address] [place], [place] [address] PSAon 12-15-2024 Prostate Specific Antigen 1.44 ng/mL Normal 0.00-4.00 [facility] Comment on above: Performed By: #### A NEELAM, ADIFF, CBC, PSA, GFR, A1C, CMP, LIPID, VIDH #### [address] [address] VIDHon 12-15-2024 Vit. D 25-Hydroxy 119.8 ng/mL Normal [facility] Comment on above: Result Comment: Inte rpretive Values Based on Total 25(OH) Vitamin D: Deficient <20 ng/mL Insufficient 20 - <30 ng/mL Sufficient 30-100 ng/mL Performed By: #### A NEELAM, ADIFF, CBC, PSA, GFR, A1C, CMP, LIPID, VIDH #### [address] [address] Pulmonary Visit Reporton Pulmonary Visit Report [facility] of [address] [place], [place] [id number] OFFICE VISIT Date of Service: 11/05/24 MR#: [id number] Acct: [id number] Name: NASH FERGUSON Rep #: [id number] : 1950 Provider: CLARISSA Robins Age/Sex: 73/M Location: BMS.PMW Status: Signed Assessment and Plan Assessment and Plan (1) JAYA (obstructive sleep apnea): Status: Chronic Plan: He is using and benefiting from Pap therapy. No indication for retitration study. I am sending him to PAP education to see if we can minimize the mask leak that I believe is related to his facial hair. Contact the office for any new or worsening symptoms in the meantime. Follow-up in 1 year. (2) Obesity: Status: Chronic Qualifiers: Obesity type: due to excess calories Obesity classification: adult class 1 (BMI 30 - 34.9) Serious obesity comorbidity presence: with serious comorbidity Body mass index: BMI 33.0-33.9 Qualified Code(s): E66.09 - Other obesity due to excess calories; Z68.33 - Body mass index [BMI] 33.0-33.9, adult Plan: Complicates exam, plan, care and prognosis. Continue to encourage healthy weight loss. Orders: Orders Self Mgmnt Educ Training 11/06/24 G47.33 - Obstructive sleep apnea (adult) (pediatric) HPI HPI Comments Details: This patient presents to the office today to reestablish care for his obstructive sleep apnea. He is ambulatory and currently on room air. He has not recently been seen in the ED or urgent care for any respiratory illness. He has not required any antibiotics or prednisone for any breathing problems. He had an URI about 2 weeks ago, he did not need any medications for this illness. He denies any difficulty with shortness of breath. He denies any cough, sputum production or hemoptysis. She denies any wheezing, chest tightness, chest pain or palpitations. He also denies any fever, chills or body aches. He wakes feeling rested and refreshed with use of his PAP device. He is not having difficulty with dry mouth. He has noticed mask leaks since he began growing out his facial hair. He is not requiring naps. He does not nod off to sleep unintentionally. He is not having excessive nocturia. Compliance report for the past 30 days shows 100% compliance with average use of 7 hours and 44 minutes per night. Current setting is BiPAP 16/12 cmH2O residual AHI 0.9 events per hour. Leaks do appear to be occurring routinely. Intake Vital Signs 11/01/24 08:02 11/05/24 08:30 Height 6 ft 4 in 6 ft 4 in Weight: 274 lb BMI 33.3 BP 130/79 H Blood Pressure Location Rt brachial Position Sitting Respiration 16 Pulse 64 Pulse Source Monitor Temp 96.5 F L Temperature Source Temporal Artery Pulse Oximetry (%) 94 Oxygen Delivery Method room air Intake Visit Reasons: 1 Y FU Slurry Blender Required: No DME Vendor: [employer] Accompanied by: Self Is patient in pain?: Yes (arthritis) Pain scale (1-10): 2 Allergies etanercept (From Enbrel) Allergy (Verified 11/05/24 10:50) Rash methylprednisolone Allergy (Verified 11/05/24 10:50) Rash rivaroxaban (From Xarelto) Adverse Reaction (Intermediate, Verified 11/05/24 10:50) Rash cephalexin (From Keflex) Adverse Reaction (Mild, Verified 11/05/24 10:50) Rash clindamycin Adverse Reaction (Mild, Verified 11/05/24 10:50) GI upset Medications ???Medication ???Instructions ???Recorded ???Confirmed ???Type ascorbic acid (vitamin C) 500 mg 1,000 mg PO QDAY 09/05/18 11/05/24 History capsule lisdexamfetamine 70 mg capsule 70 mg PO DAILY 09/05/18 11/05/24 H istory (Vyvanse) losartan 25 mg tablet (Cozaar) 25 mg PO DAILY 09/05/18 11/05/24 H istory multivitamin (Multiple Vitamins 1 tab PO DAILY 09/05/18 11/05/24 H istory tablet) sertraline 100 mg tablet (Zoloft) 100 mg PO DAILY 09/05/18 11/05/24 History zinc 50 mg tablet 50 mg PO DAILY 09/05/18 11/05/24 H istory lutein 20 mg capsule 20 mg PO DAILY 01/13/20 11/05/24 H istory mecobalamin (vitamin B12) 1,000 1,000 mcg sublingual DAILY 0 11/05/24 History mcg disintegrating tablet,sublingual chondroitin sulfate A 250 mg 1,200 mg PO DAILY 10/27/22 5 History capsule glucosamine HCl 1,500 mg tablet 1,500 mg PO DAILY 10/27/22 5 History lysine 500 mg tablet 500 mg PO DAILY 10/27/22 11/05/24 History tramadol 50 mg tablet 50 mg PO BID PRN 10/27/22 11/05/24 History blood sugar diagnostic (Accu-Chek #10 ea 07/27/23 11/05/24 History Guide test strips) blood-glucose meter (Accu-Chek #1 ea 07/27/23 11/05/24 History Guide Me Glucose Meter) lancets (Accu-Chek Softclix #100 ea 07/27/23 11/05/24 History Lancets) acetaminophen 500 mg capsule 1,000 mg PO TID PRN 10/25/2311/05 History aspirin 81 mg tablet,delayed 81 mg PO Q (more content not included)... Normal [facility] 10-15-2024 U Ratio Alb/Cre 8 mg/G Normal 0-30 [facility] Comment on above: Performed By: #### M ALBR #### [place] [address] [place], [place] [id number] [place] [address] 09-22-2024 U Creatinine 116.2 mg/dL Normal [facility] Comment on above: Performed By: #### M ALBR #### [place] [place], [place] [address] U Microalb 9.2 mg/L Normal [facility] Comment on above: Performed By: #### M ALBR #### [address] [place], [place] [address] LABORATORYOrdered By: Wilton Plascencia on 09-21-2024 Albumin DL <= 20 mg/L (U) [Mass/Vol] 9.2 mg/L Invalid Interpretation Code AO ADM SS Albumin/Creatinine DL <= 20 mg/L (U) [Mass ratio] 0 mcg/mg Normal 0 - 30 mcg/mg AO Chemistry S Creatinine (U) [Mass/Vol] 116.2 mg/dL Invalid Interpretation Code AO ADM SS .Auto Diffon 12-13-2023 Basophil, Absolute 0.0 10 3/mcL Normal 0.0-0.2 [facility]ly [facility], [facility] ([place]) Comment on above: Performed By: #### A 1C, ADIFF, PSA, GFR, CMP, CBC, LIPID, ANEU #### [address] [address] Basophils/100 WBC (Bld) 0.6 % Normal 0.0-2.5 [facility] ([place]) Comment on above: Performed By: #### A 1C, ADIFF, PSA, GFR, CMP, CBC, LIPID, ANEU #### [address] [address] Eosinophil, Absolute 0.2 10 3/mcL Normal 0.0-0.4 [facility] ([place]) Comment on above: Performed By: #### A 1C, ADIFF, PSA, GFR, CMP, CBC, LIPID, ANEU #### [address] [address] Eosinophils/100 WBC (Bld) 2.8 % Normal 0.0-7.0 [facility] ([place]) Comment on above: Performed By: #### A 1C, ADIFF, PSA, GFR, CMP, CBC, LIPID, ANEU #### [address] [address] Lymphocyte, Absolute 1.4 10 3/mcL Normal 0.8-3.9 [facility] ([place]) Comment on above: Performed By: #### A 1C, ADIFF, PSA, GFR, CMP, CBC, LIPID, ANEU #### [address] [address] Lymphocytes/100 WBC (Bld) 23.9 % Normal 10.0-50.0 [facility] ([place]) Comment on above: Performed By: #### A 1C, ADIFF, PSA, GFR, CMP, CBC, LIPID, ANEU #### [address] [address] Monocyte, Absolute 0.5 10 3/mcL Normal 0.2-1.0 [facility] ([place]) Comment on above: Performed By: #### A 1C, ADIFF, PSA, GFR, CMP, CBC, LIPID, ANEU #### [address] [address] Monocytes/100 WBC (Bld) 8.7 % Normal 1.7-13.0 [facility] ([place]) Comment on above: Performed By: #### A 1C, ADIFF, PSA, GFR, CMP, CBC, LIPID, ANEU #### [address] [address] Neutrophils/100 WBC (Bld) 64.0 % Normal 37.0-80.0 [facility] ([place]) Comment on above: Performed By: #### A 1C, ADIFF, PSA, GFR, CMP, CBC, LIPID, ANEU #### [address] [address] .GFRon 12-13-2023 GFR 89 ml/min/1.73sqm Normal [facility] ([place]) Comment on above: Result Comment: GFR Population mean for , Non- Americans Ages 20-29 = 116 mL/min/1.73 sq.m. Ages 30-39 = 107 mL/min/1.73 sq.m. Ages 40-49 = 99 mL/min/1.73 sq.m. Ages 50-59 = 93 mL/min/1.73 sq.m. Ages 60-69 = 85 mL/min/1.73 sq.m. Ages 70+ = 75 mL/min/1.73 sq.m. Chronic Kidney Disease: Less than 60 mL/min/1.73 square meters End Stage Renal Disease: Less than 15 mL/min/1.73 square meters Performed By: #### A 1C, ADIFF, PSA, GFR, CMP, CBC, LIPID, ANEU #### [address] [address] GFR Non- 73 ml/min/1.73sqm Normal [facility] ([place]) Comment on above: Result Comment: GFR Population mean for , Non- Americans Ages 20-29 = 116 mL/min/1.73 sq.m. Ages 30-39 = 107 mL/min/1.73 sq.m. Ages 40-49 = 99 mL/min/1.73 sq.m. Ages 50-59 = 93 mL/min/1.73 sq.m. Ages 60-69 = 85 mL/min/1.73 sq.m. Ages 70+ = 75 mL/min/1.73 sq.m. Chronic Kidney Disease: Less than 60 mL/min/1.73 square meters End Stage Renal Disease: Less than 15 mL/min/1.73 square meters Performed By: #### A 1C, ADIFF, PSA, GFR, CMP, CBC, LIPID, ANEU #### [address] [address] .NEUABSon 12-13-2023 Neutrophil, Absolute 3.8 10 3/mcL Normal 2.9-6.2 [facility] ([place]) Comment on above: Performed By: #### A 1C, ADIFF, PSA, GFR, CMP, CBC, LIPID, ANEU #### [place] [address] A1Con 12-13-2023 HbA1c (Bld) [Mass fraction] 6.4 % Normal 4.3-6.4 [facility] ([place]) Comment on above: Performed By: #### A 1C, ADIFF, PSA, GFR, CMP, CBC, LIPID, ANEU #### [place] [address] CBCon 12-13-2023 Erythrocyte distribution width (RBC) [Ratio] 14.1 % Normal 11.5-14.5 [facility] ([place]) Comment on above: Performed By: #### A 1C, ADIFF, PSA, GFR, CMP, CBC, LIPID, ANEU #### [place] [address] Hematocrit (Bld) [Volume fraction] 42.0 % Normal 42.0-52.0 [facility] ([place]) Comment on above: Performed By: #### A 1C, ADIFF, PSA, GFR, CMP, CBC, LIPID, ANEU #### [place] [address] Hgb 14.3 G/dL Normal 14.0-18.0 [facility] ([place]) Comment on above: Performed By: #### A 1C, ADIFF, PSA, GFR, CMP, CBC, LIPID, ANEU #### [place] [address] MCH (RBC) [Entitic mass] 31.1 pg Normal 27.0-31.2 [facility] ([place]) Comment on above: Performed By: #### A 1C, ADIFF, PSA, GFR, CMP, CBC, LIPID, ANEU #### [address] [address] MCHC 34.0 G/dL Normal 31.8-35.4 [facility] ([place]) Comment on above: Performed By: #### A 1C, ADIFF, PSA, GFR, CMP, CBC, LIPID, ANEU #### [address] [address] MCV (RBC) [Entitic vol] 91.5 fL Normal 80.0-94.0 [facility] ([place]) Comment on above: Performed By: #### A 1C, ADIFF, PSA, GFR, CMP, CBC, LIPID, ANEU #### [address] [address] Platelet 279 10 3/mcL Normal 130-400 [facility] ([place]) Comment on above: Performed By: #### A 1C, ADIFF, PSA, GFR, CMP, CBC, LIPID, ANEU #### [address] [address] Platelet mean volume (Bld) [Entitic vol] 7.4 fL Normal 7.4-10.4 [facility] ([place]) Comment on above: Performed By: #### A 1C, ADIFF, PSA, GFR, CMP, CBC, LIPID, ANEU #### [address] [address] RBC 4.59 10 6/mcL Normal 4.04-6.13 [facility] ([place]) Comment on above: Performed By: #### A 1C, ADIFF, PSA, GFR, CMP, CBC, LIPID, ANEU #### [address] [address] WBC 6.0 10 3/mcL Normal 4.6-10.8 [facility] ([place]) Comment on above: Performed By: #### A 1C, ADIFF, PSA, GFR, CMP, CBC, LIPID, ANEU #### [address] [address] CMPon 12-13-2023 Albumin Level 3.5 G/dL Normal 3.4-4.8 [facility] ([place]) Comment on above: Performed By: #### A 1C, ADIFF, PSA, GFR, CMP, CBC, LIPID, ANEU #### [address] [address] Albumin/Globulin [Mass ratio] 1.1 {ratio} Normal 1.1-2.5 [facility] ([place]) Comment on above: Performed By: #### A 1C, ADIFF, PSA, GFR, CMP, CBC, LIPID, ANEU #### [address] [address] ALP [Catalytic activity/Vol] 89 U/L Normal 40-135 [facility] ([place]) Comment on above: Performed By: #### A 1C, ADIFF, PSA, GFR, CMP, CBC, LIPID, ANEU #### [address] [address] ALT [Catalytic activity/Vol] 27 U/L Normal 16-63 [facility] ([place]) Comment on above: Performed By: #### A 1C, ADIFF, PSA, GFR, CMP, CBC, LIPID, ANEU #### [address] [address] AST [Catalytic activity/Vol] 12 U/L Normal 10-40 [facility] ([place]) Comment on above: Performed By: #### A 1C, ADIFF, PSA, GFR, CMP, CBC, LIPID, ANEU #### [address] [address] Bili Total 0.4 mg/dL Normal 0.2-1.0 [facility] ([place]) Comment on above: Result Comment: Use of this assay is not recommended for patients undergoing treatment with eltrombopag due to the potential for falsely elevated results. Performed By: #### A 1C, ADIFF, PSA, GFR, CMP, CBC, LIPID, ANEU #### [address] [address] BUN/Creatinine Ratio 14 ratio Normal 7-27 [facility] ([place]) Comment on above: Performed By: #### A 1C, ADIFF, PSA, GFR, CMP, CBC, LIPID, ANEU #### [address] [address] Calcium [Mass/Vol] 8.8 mg/dL Normal 8.4-10.2 [facility] ([place]) Comment on above: Performed By: #### A 1C, ADIFF, PSA, GFR, CMP, CBC, LIPID, ANEU #### [address] [address] Chloride [Moles/Vol] 104 mmol/L Normal 98-107 [facility] ([place]) Comment on above: Performed By: #### A 1C, ADIFF, PSA, GFR, CMP, CBC, LIPID, ANEU #### [place] [address] CO2 [Moles/Vol] 29 mmol/L Normal 23-31 On license of [facility] ([place]) Comment on above: Performed By: #### A 1C, ADIFF, PSA, GFR, CMP, CBC, LIPID, ANEU #### [place] [address] Creatinine [Mass/Vol] 1.01 mg/dL Normal 0.70-1.30 [facility] ([place]) Comment on above: Performed By: #### A 1C, ADIFF, PSA, GFR, CMP, CBC, LIPID, ANEU #### [address] [address] Electrolyte Balance 10.0 mEq/L Normal 4.0-15.0 [facility] ([place]) Comment on above: Performed By: #### A 1C, ADIFF, PSA, GFR, CMP, CBC, LIPID, ANEU #### [place] [address] Globulin 3.3 G/dL Normal [facility] ([place]) Comment on above: Performed By: #### A 1C, ADIFF, PSA, GFR, CMP, CBC, LIPID, ANEU #### [address] [address] Glucose [Mass/Vol] 141 mg/dL High 83-110 [facility] ([place]) Comment on above: Performed By: #### A 1C, ADIFF, PSA, GFR, CMP, CBC, LIPID, ANEU #### [address] [address] Potassium [Moles/Vol] 4.7 mmol/L Normal 3.5-5.1 [facility] ([place]) Comment on above: Performed By: #### A 1C, ADIFF, PSA, GFR, CMP, CBC, LIPID, ANEU #### [address] [address] Sodium [Moles/Vol] 143 mmol/L Normal 136-145 [facility] ([place]) Comment on above: Performed By: #### A 1C, ADIFF, PSA, GFR, CMP, CBC, LIPID, ANEU #### [address] [address] Total Protein 6.8 G/dL Normal 6.4-8.2 [facility] ([place]) Comment on above: Performed By: #### A 1C, ADIFF, PSA, GFR, CMP, CBC, LIPID, ANEU #### [address] [address] Urea nitrogen [Mass/Vol] 14 mg/dL Normal 7-18 [facility]) Comment on above: Performed By: #### A 1C, ADIFF, PSA, GFR, CMP, CBC, LIPID, ANEU #### [address] [address] LABORATORYOrdered By: SYSTEM SYSTEM on 12-13-2023 Albumin BCP dye [Mass/Vol] 3.5 G/dL Normal 3.4 - 4.8 G/dL AO ADM SS Albumin/Globulin [Mass ratio] 1.1 {ratio} Normal 1.1 - 2.5 ratio AO ADM SS ALP [Catalytic activity/Vol] 89 U/L Normal 40 - 135 U/L AO ADM SS ALT With P-5'-P [Catalytic activity/Vol] 27 U/L Normal 16 - 63 U/L AO ADM SS AST With P-5'-P [Catalytic activity/Vol] 12 U/L Normal 10 - 40 U/L AO ADM SS Basophil, Absolute 0.0 103/mcL Normal 0.0 - 0.2 10^3/mcL AO Workflow SS Basophils/100 WBC (Bld) 0.6 % Normal 0.0 - 2.5 % AO Workflow SS Bilirubin [Mass/Vol] 0.4 mg/dL Normal 0.2 - 1 .0 mg/dL AO ADM SS Comment on above: Interpretive Data: U se of this assay is not recommended for patients undergoing treatment with eltrombopag due to the potential for falsely elevated results. Calcium [Mass/Vol] 8.8 mg/dL Normal 8.4 - 10. 2 mg/dL AO ADM SS Chloride [Moles/Vol] 104 mmol/L Normal 98 - 10 7 mmol/L AO ADM SS CO2 [Moles/Vol] 29 mmol/L Normal 23 - 31 mmol/L AO ADM SS Creatinine [Mass/Vol] 1.01 mg/dL Normal 0.70 - 1.30 mg/dL AO ADM SS Electrolyte Balance 10.0 mEq/L Normal 4.0 - 15 .0 mEq/L AO ADM SS Eosinophil, Absolute 0.2 103/mcL Normal 0.0 - 0 .4 10^3/mcL AO Workflow SS Eosinophils/100 WBC (Bld) 2.8 % Normal 0.0 - 7.0 % AO Workflow SS Erythrocyte distribution width (RBC) [Ratio] 14.1 % Normal 11.5 - 14.5 % AO Workflow SS GFR/1.73 sq M.predicted among blacks MDRD (S/P/Bld) [Vol rate/Area] 89 ml/min/1.73sqm Invalid Interpretation Code AO Chemistry S Comment on above: Interpretive Data: GFR Population mean for , Non- Americans Ages 20-29 = 116 mL/min/1.73 sq.m. Ages 30-39 = 107 mL/min/1.73 sq.m. Ages 40-49 = 99 mL/min/1.73 sq.m. Ages 50-59 = 93 mL/min/1.73 sq.m. Ages 60-69 = 85 mL/min/1.73 sq.m. Ages 70+ = 75 mL/min/1.73 sq.m. Chronic Kidney Disease: Less than 60 mL/min/1.73 square meters End Stage Renal Disease: Less than 15 mL/min/1.73 square meters GFR/1.73 sq M.predicted among non-blacks MDRD (S/P/Bld) [Vol rate/Area] 73 ml/min/1.73sqm Invalid Interpretation Code AO Chemistry S Comment on above: Interpretive Data: GFR Population mean for , Non- Americans Ages 20-29 = 116 mL/min/1.73 sq.m. Ages 30-39 = 107 mL/min/1.73 sq.m. Ages 40-49 = 99 mL/min/1.73 sq.m. Ages 50-59 = 93 mL/min/1.73 sq.m. Ages 60-69 = 85 mL/min/1.73 sq.m. Ages 70+ = 75 mL/min/1.73 sq.m. Chronic Kidney Disease: Less than 60 mL/min/1.73 square meters End Stage Renal Disease: Less than 15 mL/min/1.73 square meters Globulin 3.3 G/dL Invalid Interpretation Code AO ADM SS Glucose [Mass/Vol] 141 mg/dL High 83 - 110 mg/dL AO ADM SS HbA1c (Bld) [Mass fraction] 6.4 % Normal 4.3 - 6.4 % AO ADM SS Hematocrit (Bld) [Volume fraction] 42.0 % Normal 42.0 - 52.0 % AO Workflow SS Hemoglobin (Bld) [Mass/Vol] 14.3 G/dL Normal 14.0 - 18.0 G/dL AO Workflow SS Lymphocyte, Absolute 1.4 103/mcL Normal 0.8 - 3 .9 10^3/mcL AO Workflow SS Lymphocytes/100 WBC (Bld) 23.9 % Normal 10.0 - 50.0 % AO Workflow SS MCH (RBC) [Entitic mass] 31.1 pg Normal 27.0 - 31.2 pg AO Workflow SS MCHC 34.0 G/dL Normal 31.8 - 35.4 G/dL AO Workflow SS MCV (RBC) [Entitic vol] 91.5 fL Normal 80.0 - 94.0 fL AO Workflow SS Monocyte, Absolute 0.5 103/mcL Normal 0.2 - 1.0 10^3/mcL AO Workflow SS Monocytes/100 WBC (Bld) 8.7 % Normal 1.7 - 13.0 % AO Workflow SS Neutrophil, Absolute 3.8 103/mcL Normal 2.9 - 6 .2 10^3/mcL AO Workflow SS Neutrophils/100 WBC (Bld) 64.0 % Normal 37.0 - 80.0 % AO Workflow SS Platelet mean volume (Bld) [Entitic vol] 7.4 fL Normal 7.4 - 10.4 fL AO Workflow SS Platelets (Bld) [#/Vol] 279 103/mcL Normal 130 - 400 10^3/mcL AO Workflow SS Potassium [Moles/Vol] 4.7 mmol/L Normal 3.5 - 5.1 mmol/L AO ADM SS Prostate specific Ag [Mass/Vol] 1.18 ng/mL Normal 0.00 - 4.00 ng/mL AO ADM SS Protein [Mass/Vol] 6.8 G/dL Normal 6.4 - 8.2 G/dL AO ADM SS RBC (Bld) [#/Vol] 4.59 106/mcL Normal 4.04 - 6.1 3 10^6/mcL AO Workflow SS Sodium [Moles/Vol] 143 mmol/L Normal 136 - 145 mmol/L AO ADM SS Urea nitrogen [Mass/Vol] 14 mg/dL Normal 7 - 18 mg/dL AO ADM SS Urea nitrogen/Creatinine [Mass ratio] 14 ratio Normal 7 - 27 ratio AO ADM SS WBC (Bld) [#/Vol] 6.0 103/mcL Normal 4.6 - 10.8 10^3/mcL AO Workflow SS LABORATORYOrdered By: Colette Garcia on 12-13-2023 Cholesterol [Mass/Vol] 189 mg/dL Normal 0 - 200 mg/dL AO ADM SS Comment on above: Interpretive Data: C holesterol Reference Interval: Less than 200 Desirable 200-239 Borderline high risk 240 and above High risk Cholesterol in HDL [Mass/Vol] 46 mg/dL Normal 40 - 60 mg/dL AO ADM SS Cholesterol in LDL [Mass/Vol] 106 mg/dL Normal 0 - 130 mg/dL AO ADM SS Triglyceride [Mass/Vol] 183 mg/dL High 0 - 150 mg/dL AO ADM SS Comment on above: Interpretive Data: T riglyceride Reference Interval: Less than 150 Normal 150-199 Borderline high risk 200-499 High risk 500 or higher Very high risk LIPIDon 12-13-2023 Cholesterol [Mass/Vol] 189 mg/dL Normal 0-200 [facility] ([place]) Comment on above: Result Comment: Chol esterol Reference Interval: Less than 200 Desirable 200-239 Borderline high risk 240 and above High risk Performed By: #### A 1C, ADIFF, PSA, GFR, CMP, CBC, LIPID, ANEU ####[address] [place], [place] [address] Cholesterol in HDL [Mass/Vol] 46 mg/dL Normal 40-60 [facility] ([place]) Comment on above: Performed By: #### A 1C, ADIFF, PSA, GFR, CMP, CBC, LIPID, ANEU ####[address] [place], [place] [address] Cholesterol in LDL [Mass/Vol] 106 mg/dL Normal 0-130 [facility] ([place]) Comment on above: Performed By: #### A 1C, ADIFF, PSA, GFR, CMP, CBC, LIPID, ANEU ####[address] [place], [place] [address] Triglyceride [Mass/Vol] 183 mg/dL High 0-150 [facility] ([place]) Comment on above: Result Comment: Trig lyceride Reference Interval: Less than 150 Normal 150-199 Borderline high risk 200-499 High risk 500 or higher Very high risk Performed By: #### A 1C, ADIFF, PSA, GFR, CMP, CBC, LIPID, ANEU ####[address] [place], [place] [address] PSAon 12-13-2023 Prostate Specific Antigen 1.18 ng/mL Normal 0.00-4.00 [facility] ([place]) Comment on above: Performed By: #### A 1C, ADIFF, PSA, GFR, CMP, CBC, LIPID, ANEU #### [facility] [address] [place], [place] [address] DRUG TOX MONITORING 4 W/CONF , URINEon 09-16-2023 Amphetamine >159[address] High <250 [facility] Comment on above: Order Comment: FASTI NG: UNKNOWN Result Comment: See Note 1 Performed By: #### 9 1484 #### [facility] [address], [address] [place] [address] Slurry Mixer: Kelby Singh MD Amphetamines Positive Abnormal <500 [facility] Comment on above: Order Comment: FASTI NG: UNKNOWN Performed By: #### 9 1484 #### [facility] [address], [address] [place] [address] Slurry Mixer: Kelby Singh MD Barbiturates Negative Normal <300 [facility] Comment on above: Order Comment: FASTI NG: UNKNOWN Performed By: #### 9 1484 #### [facility] [address], [address] [place] [address] Slurry Mixer: Kelby Singh MD Benzodiazepines Negative Normal <100 [facility] Comment on above: Order Comment: FASTI NG: UNKNOWN Performed By: #### 9 1484 #### [facility] [address], [address] [place] [address] Slurry Mixer: Kelby Singh MD Buprenorphine Negative Normal <5 [facility] Comment on above: Order Comment: FASTI NG: UNKNOWN Performed By: #### 9 1484 #### [facility] [place] [address] Slurry Mixer: Kelby Singh MD Cocaine Metabolite Negative Normal <150 [facility] Comment on above: Order Comment: FASTI NG: UNKNOWN Performed By: #### 9 1484 #### [facility] [place] [address] Slurry Mixer: Kelby Singh MD COMMENT Normal [facility] Comment on above: Order Comment: FASTI NG: UNKNOWN Result Comment: See Note 2 Your request to have a duplicate copy faxed has been acknowledged. Queued to: [id number] Note 1 This test was developed and its analytical performance characteristics have been determined by [employer]. It has not been cleared or approved by the FDA. This assay has been validated pursuant to the CLIA regulations and is used for clinical purposes. Note 2 This drug testing is for medical treatment only. Analysis was performed as non-forensic testing and these results should be used only by healthcare providers to render diagnosis or treatment, or to monitor progress of medical conditions. For assistance with interpreting these drug results, please contact a [facility] Toxicology Specialist: [phone] ( ), M-F, 8am-6pm EST. Performed By: #### 9 1484 #### [facility] [place] [address] Slurry Mixer: Kelby Singh MD Heroin Metabolite Negative Normal <10 [facility] Comment on above: Order Comment: FASTI NG: UNKNOWN Performed By: #### 9 1484 #### [facility] [place] [address] Slurry Mixer: Kelby Singh MD Marijuana Metabolite 76 ng/mL High <5 [facility] Comment on above: Order Comment: FASTI NG: UNKNOWN Result Comment: See Note 1 Performed By: #### 9 1484 #### [facility] [place] [address] Slurry Mixer: Kelby Singh MD Marijuana Metabolite 20 Positive Abnormal <20 [facility] Comment on above: Order Comment: FASTI NG: UNKNOWN Result Comment: Monica francy Metabolite detected is consistent with exposure to Marijuana (THC) and/or hemp derived products. Some jurisdictions do not include hemp within the definition of Marijuana. Performed By: #### 9 1484 #### [facility] [place] [address] Slurry Mixer: Kelby Singh MD Methadone Metabolite Negative Normal <100 [facility] Comment on above: Order Comment: FASTI NG: UNKNOWN Performed By: #### 9 1484 #### [facility] [place] [address] Slurry Mixer: Kelby Singh MD Methamphetamine Negative Normal <250 [facility] Comment on above: Order Comment: FASTI NG: UNKNOWN Result Comment: See Note 1 Performed By: #### 9 1484 #### [facility] [place] [address] Slurry Mixer: Kelby Singh MD Opiates Negative Normal <100 [facility] Comment on above: Order Comment: FASTI NG: UNKNOWN Performed By: #### 9 1484 #### [facility] [address] , [address] [place] [address] Slurry Mixer: Kelby Singh MD Oxycodone Negative Normal <100 [facility] Comment on above: Order Comment: FASTI NG: UNKNOWN Performed By: #### 9 1484 #### [facility] [place] [address] [place] , [address] [place] [address] Slurry Mixer: Kelby Singh MD Phencyclidine Negative Normal <25 [facility] Comment on above: Order Comment: FASTI NG: UNKNOWN Performed By: #### 9 1484 #### [facility] [address], [address] [place] [address] Slurry Mixer: Kelby Singh MD LABORATORYOrdered By: Karin Burns on 09-14-2023 Albumin DL <= 20 mg/L (U) [Mass/Vol] 2638 mcg/dL Invalid Interpretation Code AO ADM SS Albumin/Creatinine DL <= 20 mg/L (U) [Mass ratio] 10 mcg/mg Normal 0 - 30 mcg/mg AO ADM SS Creatinine (U) [Mass/Vol] 262.0 mg/dL High 39.0 - 259.0 mg/dL AO ADM SS MALBRon 09-14-2023 U Creatinine 262.0 mg/dL High 39.0-259.0 [facility]) Comment on above: Performed By: #### M ALBR #### [address] [address] U Microalb 2638 mcg/dL Normal [facility] ([place]) Comment on above: Performed By: #### M ALBR #### [address] [address] U Ratio Alb/Cre 10 mcg/mg Normal 0-30 On license of [facility] ([place]) Comment on above: Performed By: #### M ALBR #### [address] [address] GENTAMICIN:SUSC:PT:ISOLATE:O RDQN:MICon 05-27-2023 Gentamicin THOMAS [Susc] Light Staphylococcus aureus This staphylococci does not demonstrate inducible clindamycin resistance in vitro. Moderate normal skin terrance present. Sensitivity testing not indicated. [facility] Gentamicin THOMAS [Susc]on 05-02 GS 1+ Gram Positive [facility] Staphylococcus aureus Staphylococcus aureus [facility] LABORATORYOrdered By: Colette Garcia on 12-22-2022 Albumin DL <= 20 mg/L (U) [Mass/Vol] 851 mcg/dL Invalid Interpretation Code AO ADM SS Albumin/Creatinine DL <= 20 mg/L (U) [Mass ratio] 4 mcg/mg Invalid Interpretation Code 0 - 30 mcg/mg AO ADM SS Creatinine (U) [Mass/Vol] 193.4 mg/dL Invalid Interpretation Code 39.0 - 259.0 mg/dL AO ADM SS MALBRon 12-22-2022 U Creatinine 193.4 mg/dL Normal 39.0-259.0 [facility] ([place]) Comment on above: Performed By: #### M ALBR #### [address] [address] U Microalb 851 mcg/dL Normal [facility] ([place]) Comment on above: Performed By: #### M ALBR #### [place] [address] [place], [place] [address] U Ratio Alb/Cre 4 mcg/mg Normal 0-30 On license of [facility] ([place]) Comment on above: Performed By: #### M ALBR #### [facility] [address] [place], [place] [address] LABORATORYOrdered By: SYSTEM SYSTEM on 12-11-2022 Albumin BCP dye [Mass/Vol] 3.6 G/dL Invalid Interpretation Code 3.4 - 4.8 G/dL AO ADM SS Albumin/Globulin [Mass ratio] 1.2 {ratio} Invalid Interpretation Code 1.1 - 2.5 ratio AO ADM SS ALP [Catalytic activity/Vol] 82 U/L Invalid Interpretation Code 40 - 135 U/L AO ADM SS ALT With P-5'-P [Catalytic activity/Vol] 32 U/L Invalid Interpretation Code 16 - 63 U/L AO ADM SS AST With P-5'-P [Catalytic activity/Vol] 21 U/L Invalid Interpretation Code 10 - 40 U/L AO ADM SS Bilirubin [Mass/Vol] 0.4 mg/dL Invalid Interpretation Code 0.2 - 1.0 mg/dL AO ADM SS Calcium [Mass/Vol] 8.6 mg/dL Invalid Interpretation Code 8.4 - 10.2 mg/dL AO ADM SS Chloride [Moles/Vol] 107 mmol/L Invalid Interpretation Code 98 - 107 mmol/L AO ADM SS CO2 [Moles/Vol] 30 mmol/L Invalid Interpretation Code 23 - 31 mmol/L AO ADM SS Creatinine [Mass/Vol] 1.07 mg/dL Invalid Interpretation Code 0.70 - 1.30 mg/dL AO ADM SS Electrolyte Balance 6.0 mEq/L Invalid Interpretation Code 4.0 - 15.0 mEq/L AO ADM SS GFR/1.73 sq M.predicted among blacks MDRD (S/P/Bld) [Vol rate/Area] 83 ml/min/1.73sqm Invalid Interpretation Code AO Chemistry S GFR/1.73 sq M.predicted among non-blacks MDRD (S/P/Bld) [Vol rate/Area] 69 ml/min/1.73sqm Invalid Interpretation Code AO Chemistry S Globulin 3.1 G/dL Invalid Interpretation Code AO ADM SS Glucose [Mass/Vol] 144 mg/dL Invalid Interpretation Code 83 - 110 mg/dL AO ADM SS Potassium [Moles/Vol] 4.6 mmol/L Invalid Interpretation Code 3.5 - 5.1 mmol/L AO ADM SS Prostate specific Ag [Mass/Vol] 1.23 ng/mL Invalid Interpretation Code 0.00 - 4.00 ng/mL AO ADM SS Protein [Mass/Vol] 6.7 G/dL Invalid Interpretation Code 6.4 - 8.2 G/dL AO ADM SS Sodium [Moles/Vol] 143 mmol/L Invalid Interpretation Code 136 - 145 mmol/L AO ADM SS Urea nitrogen [Mass/Vol] 14 mg/dL Invalid Interpretation Code 7 - 18 mg/dL AO ADM SS Urea nitrogen/Creatinine [Mass ratio] 13 ratio Invalid Interpretation Code 7 - 27 ratio AO ADM SS LABORATORYOrdered By: Tila Chavez on 12-11-2022 Basophil, Absolute 0.1 103/mcL Invalid Interpretation Code 0.0 - 0.2 10^3/mcL AO Workflow SS Basophils/100 WBC (Bld) 0.8 % Invalid Interpretation Code 0.0 - 2.5 % AO Workflow SS Cholesterol [Mass/Vol] 175 mg/dL Invalid Interpretation Code 0 - 200 mg/dL AO ADM SS Cholesterol in HDL [Mass/Vol] 49 mg/dL Invalid Interpretation Code 40 - 60 mg/dL AO ADM SS Cholesterol in LDL [Mass/Vol] 96 mg/dL Invalid Interpretation Code 0 - 130 mg/dL AO ADM SS Eosinophil, Absolute 0.3 103/mcL Invalid Interpretation Code 0.0 - 0.4 10^3/mcL AO Workflow SS Eosinophils/100 WBC (Bld) 4.0 % Invalid Interpretation Code 0.0 - 7.0 % AO Workflow SS Erythrocyte distribution width (RBC) [Ratio] 14.1 % Invalid Interpretation Code 11.5 - 14.5 % AO Workflow SS Hematocrit (Bld) [Volume fraction] 43.3 % Invalid Interpretation Code 42.0 - 52.0 % AO Workflow SS Hemoglobin (Bld) [Mass/Vol] 14.4 G/dL Invalid Interpretation Code 14.0 - 18.0 G/dL AO Workflow SS Lymphocyte, Absolute 1.5 103/mcL Invalid Interpretation Code 0.8 - 3.9 10^3/mcL AO Workflow SS Lymphocytes/100 WBC (Bld) 22.5 % Invalid Interpretation Code 10.0 - 50.0 % AO Workflow SS MCH (RBC) [Entitic mass] 30.2 pg Invalid Interpretation Code 27.0 - 31.2 pg AO Workflow SS MCHC 33.2 G/dL Invalid Interpretation Code 31.8 - 35.4 G/dL AO Workflow SS MCV (RBC) [Entitic vol] 90.8 fL Invalid Interpretation Code 80.0 - 94.0 fL AO Workflow SS Monocyte, Absolute 0.5 103/mcL Invalid Interpretation Code 0.2 - 1.0 10^3/mcL AO Workflow SS Monocytes/100 WBC (Bld) 7.8 % Invalid Interpretation Code 1.7 - 13.0 % AO Workflow SS Neutrophil, Absolute 4.4 103/mcL Invalid Interpretation Code 2.9 - 6.2 10^3/mcL AO Workflow SS Neutrophils/100 WBC (Bld) 64.9 % Invalid Interpretation Code 37.0 - 80.0 % AO Workflow SS Platelet mean volume (Bld) [Entitic vol] 7.1 fL Invalid Interpretation Code 7.4 - 10.4 fL AO Workflow SS Platelets (Bld) [#/Vol] 299 103/mcL Invalid Interpretation Code 130 - 400 10^3/mcL AO Workflow SS RBC (Bld) [#/Vol] 4.77 106/mcL Invalid Interpretation Code 4.04 - 6.13 10^6/mcL AO Workflow SS Triglyceride [Mass/Vol] 148 mg/dL Invalid Interpretation Code 0 - 150 mg/dL AO ADM SS WBC (Bld) [#/Vol] 6.8 103/mcL Invalid Interpretation Code 4.6 - 10.8 10^3/mcL AO Workflow SS Office Visit (Urology)on Follow-up visit Diagnoses/Problems Assessed Nocturia (788.43) (R35.1) Bilateral kidney stones (592.0) (N20.0) Benign prostatic hyperplasia without urinary obstruction (600.00) (N40.0) Patient Discussion/Summary CT reviewed-Copy of report given to patient and he will take to PCP KUB ordered Stone prevention discussed. Diet reviewed. Discussed fluid intake All available PSA values reviewed, Options discussed. Questions answered. Diet changes for prostate health discussed and educational information given. Pros/Cons of prostate health supplements discussed. Treatment options for ED reviewed. Lifestyle change to help prevent UTIs discussed. Encouraged fluid intake. F/U 1 year with KUB and PSA Chief Complaint CT results and PSA History of Present IllnessPatient is here for CT results. CT showed [...] is an issue. Patient also has Phimosis Review of Systems Constitutional: No fever, No chills. Eye: glasses Ear/Nose/Mouth/Throat: Negative. Respiratory: No shortness of breath, No cough. Cardiovascular: No chest pain, No peripheral edema. Gastrointestinal: No nausea, Genitourinary: Negative except as documented in history of present illness. Hematology/Lymphatics: Patient denies being on blood thinners.. Endocrine: Negative. Immunologic: Not immunocompromised. Musculoskeletal: neck pain Integumentary: Negative. Neurologic: Alert and oriented X4. Psychiatric: Negative. Active Problems Problems Benign prostatic hyperplasia without urinary obstruction (600.00) (N40.0) Bilateral kidney stones (592.0) (N20.0) Nocturia (788.43) (R35.1) Surgical History Problems History of Carpal tunnel surgery History of Hip replacement History of Knee replacement Family History Mother No pertinent family history Father No pertinent family history Social History Problems Never a smoker Allergies Medication Keflex Recorded By: Nhi El; 01/27/2022 3:01:59 PM Xarelto TABS Recorded By: Nhi El; 01/27/2022 3:01:59 PM Current Meds Medication NameInstruction Losartan Potassium 25 MG Oral TabletTAKE 1 TABLET BY MOUTH EVERY DAY metFORMIN HCl - 500 MG Oral TabletTAKE 1 TABLET BY MOUTH EVERY DAY Pravastatin Sodium 20 MG Oral TabletTAKE 1 TABLET BY MOUTH EVERY DAY Sertraline HCl - 100 MG Oral TabletTAKE 1 TABLET BY MOUTH EVERY DAY Vyvanse 70 MG Oral CapsuleTAKE 1 CAPSULE BY MOUTH EVERY DAY IN THE MORNING Vitals Vital Signs Recorded: [id number] 11:38AM Heart Rate98 Oigdusnu794 Hswulvxjo09 Qsshez603 lb 6 oz BMI Wdnjtkgspe45.04 kg/m2 BSA Calculated2.5 Tobacco Useb) No PHQ-2 #1. Over the last 2 weeks have you felt down, depressed or hopeless? (If yes, answer PHQ-9 below)No Falls Screening (Age 18+)a) No falls within the last year Physical Exam A/O x 3 in No apparent distress Constitutional: General appearance normal Respiratory: Respiratory effort is normal Gastrointestinal:Abdom en is not tender Genitourinary: Kidneys: Not palpable Bilaterally Bladder: Not palpable or tender Signatures Electronically signed by : Matt Correa II, MD; Feb 22 2022 11:58AM EST (Author) Normal [employer] Tobacco Screening.on 022 Adult depression screening assessment No MP-Urology- [facility] Work Phone: Fall risk assessment a) No falls within the last year GK-Kwlyyef-Iye [facility] Work Phone: Tobacco use status CPHS b) No HV-Lbdeupz-Yfs [facility]field Work Phone: CT Abdomen and Pelvis withou t Contraston 02-12-2022 CT Abdomen and Pelvis WO contrast Normal ZE-Xgdfhmw-Xf h land Work Phone: PROSTATE SPECIFIC AGon 02-12 Prostate specific Ag [Mass/Vol] 1.26 ng/mL Normal 0.00 - 4.00 [facility] Comment on above: Result Comment: The FDA requires that the method used for PSA assay be reported to the physician. Values obtained with different assay methods must not be used interchangeably. This test was performed at [facility] using the Access Hybritech PSA assay is a two-site immunoenzymatic sandwich assay. The assay is approved for measurement of prostate-specific antigen (PSA)in serum and may be used in conjunction with a digital rectal examination in men 50 years and older as an aid in detection of prostate cancer. 8-Xszfu-qovdqclmz inhibitors (e.g. Proscar, Finasteride, Avodart, Dutasteride and Tia) for the treatment of BPH have been shown to lower PSA levels by an average of 50% after 6 months of treatment. Performed By: #### P SA #### [place] [id number] Prostate Specific Antigenon 02-12-2022 Prostate specific Ag [Mass/Vol] 1.26 ng/mL See Below VG-Cqnjlmw-Fgg land Work Phone: Comment on above: Reference Range: 0.0 0 - 4.00The FDA requires that the method used for PSA assay be reported to the physician. Values obtained with different assay methods must not be used interchangeably. This testwas performed at [facility] using the Access Hybritech PSA assay is a two-site immunoenzymatic sandwich assay. The assay is approved for measurement of prostate-specific antigen (PSA)in serum and may be used in conjunction with a digital rectal examination in men 50 years and older as an aid in detection of prostate cancer.7-Hpwqd-vmayrspds inhibitors (e.g. Proscar, Finasteride, Avodart, Dutasteride and Tia) for the treatment of BPH have been shown to lower PSA levels by an average of 50% after 6 months of treatment. CALCULI [STONE] ANALYSISon 0 02-04-2022 CALCULI COMPOSITION See Note Normal [facility] Comment on above: Result Comment: Calc anyi composed primarily of: 90% calcium oxalate monohydrate, and 10% calcium oxalate dihydrate. INTERPRETIVE INFORMATION: Calculi (Stone) analysis Calculi are the products of physiological processes that yield crystalline compounds in a matrix of biological compounds and blood. Matrix components are not reported. The clinically significant crystalline components identified in calculi specimens are reported. Gross description may not be consistent with composition determined by FTIR analysis. Performed By: [facility] [address] [place] [address] Team Assistant: Alexander Brunson MD, PhD Performed By: #### C ALCU #### [facility] [address] [place] [address], [place] [address] DESCRIPTION See Note Normal [facility] Comment on above: Result Comment: Spec imen consists of four brown and keith calculi fragments. The total weight is 269 mg. Performed By: #### C ALCU #### [facility] [address] [place] [address] WEIGHT 269 mg Normal [facility] Comment on above: Performed By: #### C ALCU #### [facility] [address] [place] [address] Laboratory - Pathologyon Composition Nom (Stone) See Note KV-Ehqfltf-[employer] Work Phone: Comment on above: Calculi composed marcelle brannon of:90% calcium oxalate monohydrate, and10% calcium oxalate dihydrate.INTERPRETIVE INFORMATION: Calculi (Stone) analysisCalculi are the products of physiological processes that yield crystalline compounds in a matrix of biological compounds and blood. Matrix components are not reported. The clinically significant crystalline components identified in calculi specimens are reported. Gross description may not be consistent with composition determined by FTIR analysis.Performed By: [facility] [place], [place] [address]Fsrbggcevb Director: Alexander Brunson MD, PhD Laboratory - Specimen inform ationon 01-29-2022 Appearance (Stone) See Note MP-Uro logy-[employer] Work Phone: Comment on above: Specimen consists of four brown and keith calculi fragments.The total weight is 269 mg. Specimen weight (Unsp spec) 269 mg JE-Cpqjpym-Pqe land Work Phone: IO UA (automated w/o microsc opy)on 01-27-2022 Protein (U) [Mass/Vol] Negative UU-Uvgjiqb-Zxn hland [facility] [address] DO Work Phone: IO UA (automated w/o microscopy) Negative RR-Uosdeuf-Tgo [facility] [address] DO Work Phone: IO UA (automated w/o microscopy) Normal (0.2-1.0 mg/dl) MP-Urolog y-Estiven [facility] [address] DO Work Phone: IO UA (automated w/o microscopy) 5.0 1 QQ-Vznkpum-Rly [facility] [address] DO Work Phone: IO UA (automated w/o microscopy) 1.030 1 IQ-Cnbeomd-Wcm [facility] [address] DO Work Phone: IO UA (automated w/o microscopy) Clear EU-Wadoixe-Omw [facility] [address] DO Work Phone: IO UA (automated w/o microscopy) Yellow DP-Knloebu-Esv hland [facility] [address] DO Work Phone: No Panel Informationon 01-27 VS-Qlhiwte-Mbt [facility] [address] DO Work Phone: Office Visit (Urology)on Follow-up visit Diagnoses/Problems Health Maintenance/Risks Encounter for preventive health examination (V70.0) (Z00.00) Assessed Benign prostatic hyperplasia without urinary obstruction (600.00) (N40.0) Bilateral kidney stones (592.0) (N20.0) Nocturia (788.43) (R35.1) Never a smoker Orders Bilateral kidney stones Surgical Pathology; Status:Hold For - Specimen/Data Collection,Retrospecti ve By Protocol Authorization; Requested for:27Jan2022; Perform:Surgical Pathology; Due:27Apr2022; Last Updated By:Nhi El; 01/27/2022 3:13:24 PM;Ordered; For:Bilateral kidney stones; Ordered By:Matt Correa II; Type : Non Biopsy Fixative : Fresh Site A : kidney stones Health Maintenance IO UA (automated w/o microscopy); Status:Complete - Retrospective By Protocol Authorization; Done: 27Jan2022 03:12PM Performed:In Office; Due:27Apr2022; Last Updated By:Nhi El; 01/27/2022 3:13:24 PM;Ordered; For:Health Maintenance; Ordered By:Matt Correa II; Patient Discussion/Summary CT stone study ordered Stone analysis sent Stone prevention discussed. Diet reviewed. Discussed fluid intake PSA ordered Diet changes for prostate health discussed and educational information given. Pros/Cons of prostate health supplements discussed. Treatment options for LUTS reviewed Discussed timed voiding. Discussed fluid and caffeine intake Treatment options for ED reviewed. Lifestyle change to help prevent UTIs discussed. Encouraged fluid intake. F/U after CT Chief Complaint Kidney stones History of Present IllnessPatient is here to be established for kidney stones. He has recently passed several stones this past month. He states he has no past hx of stones. First stone was in August. No recent imaging of kidneys. Denies sx today. Chronic BPH sx are mild and stable. Denies urgency and frequency. Denies dysuria. Denies hematuria. Nocturia x1. No medication for LUT'S. No recent PSA has been done. ED is an issue. Patient also has Phimosis Review of Systems Constitutional: No fever, No chills. Eye: glasses . Ear/Nose/Mouth/Throat: Negative. Respiratory: No shortness of breath, No cough. Cardiovascular: No chest pain, No peripheral edema. Gastrointestinal: No nausea, Genitourinary: Negative except as documented in history of present illness. Hematology/Lymphatics: Patient denies being on blood thinners.. Endocrine: Negative. Immunologic: Not immunocompromised. Musculoskeletal: Negative Integumentary: Negative. Neurologic: Alert and oriented X4. Psychiatric: Negative. Surgical History Problems History of Carpal tunnel surgery History of Hip replacement History of Knee replacement Family History Mother No pertinent family history Father No pertinent family history Social History Problems Never a smoker Allergies Medication Keflex Recorded By: Nhi El; 01/27/2022 3:01:59 PM Xarelto TABS Recorded By: Nhi El; 01/27/2022 3:01:59 PM Current Meds Medication NameInstruction Vyvanse 70 MG Oral CapsuleTAKE 1 CAPSULE BY MOUTH EVERY DAY IN THE MORNING Vitals Vital Signs Recorded: 27Jan2022 03:00PM Heart Uekv544 Ewaepzlk406 Pzckplqjr63 Height6 ft 3 in Jganza822 lb 8 oz BMI Urmxhftlmb50.44 kg/m2 BSA Calculated2.51 Tobacco Useb) No Falls Screening (Age 18+)a) No falls within the last year Physical Exam A/O x 3 in No apparent distress Constitutional: General appearance normal Respiratory: Respiratory effort is normal Gastrointestinal:Abdom en is not tender Genitourinary: Kidneys: Not palpable Bilaterally Bladder: Not palpable or tender Scrotum: No mass. No Hydrocele Epididymis: No spermatocele. Not tender Testicles: no mass Urethra: No Discharge Penis: burried. Sone phimosis Prostate: Symmetric. No Nodules. smooth Seminal Vesicles: No mass Sphincter Tone: normal Signatures Electronically signed by : Matt Correa II, MD; Jan 27 2022 3:20PM EST (Author) Normal [employer] Tobacco Screening.on 022 Fall risk assessment a) No falls within the last year KX-Vyzqvie-Rte [facility] [address] DO Work Phone: Tobacco use status CPHS b) No EH-Vrllodn-Tdy [facility] [address] DO Work Phone: [facility] Surgical Pathology Depar tmenton 01-27-2022 [facility] Surgical Pathology Department Name [facility] Pathologist: JEREMY COHEN MD Date of Procedure: 01/27/2022 Date Received: 01/28/2022 Date Reported 01/29/2022 Submitting Physician: MATT CORREA II, MD Location: [facility] External # FINAL DIAGNOSIS A. KIDNEY STONES, REMOVAL: -- MULTIPLE FRAGMENTS OF CALCULUS MATERIAL Note: Please see separate report for chemical analysis results. Electronically Signed Out By JEREMY COHEN MD/[facility] By the signature on this report, the individual or group listed as making the Final Interpretation/Diagnos is certifies that they have reviewed this case. Diagnostic interpretation performed at [facility] [address] [facility] [place] [address] Clinical History: Bilateral kidney stones - (N20.0) Specimens Submitted As: A: KIDNEY STONES Gross Description: Received fresh, labeled with the patient's name and hospital number and kidney stone, are multiple calculi aggregating to 1.9 x 0.7 x 0.6 cm. Tissue is not received with the specimen. A photograph has been taken. The stones are sent for stone analysis. The specimen is for gross examination only. MKM mkm/01/29/2022 [facility] Department of Pathology [address] [place] [address] Normal [facility] Comment on above: Performed By: #### U [facility] #### [facility] Surgical Pathology Department [address] [facility] [address] .Auto Diffon 07-07-2021 Basophil, Absolute 0.00 10 3/mcL Normal 0.00-0.19 [facility] ([place]) Comment on above: Performed By: #### C BC, ADIFF, ANEU, CMP, LIPID, GFR, PSA #### [address] [address] Basophils/100 WBC (Bld) 0.6 % Normal 0.0-2.5 [facility] ([place]) Comment on above: Performed By: #### C BC, ADIFF, ANEU, CMP, LIPID, GFR, PSA #### [address] [address] Eosinophil, Absolute 0.20 10 3/mcL Normal 0.00-0.40 [facility] ([place]) Comment on above: Performed By: #### C BC, ADIFF, ANEU, CMP, LIPID, GFR, PSA #### [address] [address] Eosinophils/100 WBC (Bld) 2.2 % Normal 0.0-7.0 [facility] ([place]) Comment on above: Performed By: #### C BC, ADIFF, ANEU, CMP, LIPID, GFR, PSA #### [address] [address] Lymphocyte, Absolute 1.10 10 3/mcL Normal 0.77-3.85 [facility] ([place]) Comment on above: Performed By: #### C BC, ADIFF, ANEU, CMP, LIPID, GFR, PSA #### [address] [address] Lymphocytes/100 WBC (Bld) 14.5 % Normal 10.0-50.0 [facility] ([place]) Comment on above: Performed By: #### C BC, ADIFF, ANEU, CMP, LIPID, GFR, PSA #### [address] [address] Monocyte, Absolute 0.70 10 3/mcL Normal 0.15-1.00 [facility] ([place]) Comment on above: Performed By: #### C BC, ADIFF, ANEU, CMP, LIPID, GFR, PSA #### [address] [address] Monocytes/100 WBC (Bld) 9.4 % Normal 1.7-13.0 [facility] ([place]) Comment on above: Performed By: #### C BC, ADIFF, ANEU, CMP, LIPID, GFR, PSA #### [address] [address] Neutrophils/100 WBC (Bld) 73.3 % Normal 37.0-80.0 [facility] ([place]) Comment on above: Performed By: #### C BC, ADIFF, ANEU, CMP, LIPID, GFR, PSA #### [address] [address] .GFRon 07-07-2021 GFR Non- 47 ml/min/1.73sqm Normal [facility] ([place]) Comment on above: Result Comment: GFR Population mean for , Non- Americans Ages 20-29 = 116 mL/min/1.73 sq.m. Ages 30-39 = 107 mL/min/1.73 sq.m. Ages 40-49 = 99 mL/min/1.73 sq.m. Ages 50-59 = 93 mL/min/1.73 sq.m. Ages 60-69 = 85 mL/min/1.73 sq.m. Ages 70+ = 75 mL/min/1.73 sq.m. Chronic Kidney Disease: Less than 60 mL/min/1.73 square meters End Stage Renal Disease: Less than 15 mL/min/1.73 square meters Performed By: #### C BC, ADIFF, ANEU, CMP, LIPID, GFR, PSA #### [address] [address] GFR 57 ml/min/1.73sqm Normal [facility] ([place]) Comment on above: Result Comment: GFR Population mean for , Non- Americans Ages 20-29 = 116 mL/min/1.73 sq.m. Ages 30-39 = 107 mL/min/1.73 sq.m. Ages 40-49 = 99 mL/min/1.73 sq.m. Ages 50-59 = 93 mL/min/1.73 sq.m. Ages 60-69 = 85 mL/min/1.73 sq.m. Ages 70+ = 75 mL/min/1.73 sq.m. Chronic Kidney Disease: Less than 60 mL/min/1.73 square meters End Stage Renal Disease: Less than 15 mL/min/1.73 square meters Performed By: #### C BC, ADIFF, ANEU, CMP, LIPID, GFR, PSA #### Justin [address] [address] .NEUABSon 07-07-2021 Neutrophil, Absolute 5.60 10 3/mcL Normal 2.85-6.16 [facility] ([place]) Comment on above: Performed By: #### C BC, ADIFF, ANEU, CMP, LIPID, GFR, PSA #### [address] [address] .Urinalysis Microscopic (AO) on 07-07-2021 UA Amorphus 2+ /hpf Normal [facility] ([place]) Comment on above: Performed By: #### U A, UAMICAO #### [address] [address] UA Bacteria 1+ /hpf Abnormal [facility] ([place]) Comment on above: Performed By: #### U A, UAMICAO #### [address] [address] UA RBC 0-5 Abnormal None Seen [facility] ([place]) Comment on above: Performed By: #### U A, UAMICAO #### [address] [address] UA Squam Epithelial 5-10 Abnormal None Seen [facility] ([place]) Comment on above: Performed By: #### U A UAMICAO #### [address] [address] UA WBC 0-5 Abnormal None Seen [facility] ([place]) Comment on above: Performed By: #### U A UAMICAO #### [place] [address] CBCon 07-07-2021 Erythrocyte distribution width (RBC) [Ratio] 13.4 % Normal 11.5-14.5 [facility] ([place]) Comment on above: Performed By: #### C BC, ADIFF, ANEU, CMP, LIPID, GFR, PSA #### [place] [address] Hematocrit (Bld) [Volume fraction] 39.6 % Low 42.0-52.0 [facility] ([place]) Comment on above: Performed By: #### C BC, ADIFF, ANEU, CMP, LIPID, GFR, PSA #### [place] [address] Hgb 13.3 G/dL Low 14.0-18.0 [facility] ([place]) Comment on above: Performed By: #### C BC, ADIFF, ANEU, CMP, LIPID, GFR, PSA #### [place] [address] MCH (RBC) [Entitic mass] 30.3 pg Normal 27.0-31.2 [facility] ([place]) Comment on above: Performed By: #### C BC, ADIFF, ANEU, CMP, LIPID, GFR, PSA #### [place] [address] MCHC 33.5 G/dL Normal 31.8-35.4 [facility] ([place]) Comment on above: Performed By: #### C BC, ADIFF, ANEU, CMP, LIPID, GFR, PSA #### [address] [address] MCV (RBC) [Entitic vol] 90.6 fL Normal 80.0-94.0 [facility] ([place]) Comment on above: Performed By: #### C BC, ADIFF, ANEU, CMP, LIPID, GFR, PSA #### [address] [address] Platelet 366 10 3/mcL Normal 130-400 [facility] ([place]) Comment on above: Performed By: #### C BC, ADIFF, ANEU, CMP, LIPID, GFR, PSA #### [address] [address] Platelet mean volume (Bld) [Entitic vol] 7.6 fL Normal 7.4-10.4 [facility] ([place]) Comment on above: Performed By: #### C BC, ADIFF, ANEU, CMP, LIPID, GFR, PSA #### [address] [address] RBC 4.37 10 6/mcL Normal 4.04-6.13 [facility] ([place]) Comment on above: Performed By: #### C BC, ADIFF, ANEU, CMP, LIPID, GFR, PSA #### [address] [address] WBC 7.60 10 3/mcL Normal 4.60-10.80 [facility] ([place]) Comment on above: Performed By: #### C BC, ADIFF, ANEU, CMP, LIPID, GFR, PSA #### [address] [address] CMPon 07-07-2021 Albumin Level 3.3 G/dL Low 3.4-4.8 [facility] ([place]) Comment on above: Performed By: #### C BC, ADIFF, ANEU, CMP, LIPID, GFR, PSA #### [address] [address] Albumin/Globulin [Mass ratio] 0.9 {ratio} Low 1.1-2.5 [facility] ([place]) Comment on above: Performed By: #### C BC, ADIFF, ANEU, CMP, LIPID, GFR, PSA #### [address] [address] ALP [Catalytic activity/Vol] 82 U/L Normal 40-135 [facility] ([place]) Comment on above: Performed By: #### C BC, ADIFF, ANEU, CMP, LIPID, GFR, PSA #### [address] [address] ALT [Catalytic activity/Vol] 24 U/L Normal 16-63 [facility] ([place]) Comment on above: Performed By: #### C BC, ADIFF, ANEU, CMP, LIPID, GFR, PSA #### [address] [address] AST [Catalytic activity/Vol] 16 U/L Normal 10-40 [facility] ([place]) Comment on above: Performed By: #### C BC, ADIFF, ANEU, CMP, LIPID, GFR, PSA #### [address] [address] Bili Total 0.6 mg/dL Normal 0.2-1.0 [facility] ([place]) Comment on above: Result Comment: Use of this assay is not recommended for patients undergoing treatment with eltrombopag due to the potential for falsely elevated results. Performed By: #### C BC, ADIFF, ANEU, CMP, LIPID, GFR, PSA #### [address] [address] BUN/Creatinine Ratio 14 ratio Normal 7-27 [facility] ([place]) Comment on above: Performed By: #### C BC, ADIFF, ANEU, CMP, LIPID, GFR, PSA #### [address] [address] Calcium [Mass/Vol] 9.0 mg/dL Normal 8.4-10.2 [facility] ([place]) Comment on above: Performed By: #### C BC, ADIFF, ANEU, CMP, LIPID, GFR, PSA #### [address] [address] Chloride [Moles/Vol] 101 mmol/L Normal 98-107 [facility] ([place]) Comment on above: Performed By: #### C BC, ADIFF, ANEU, CMP, LIPID, GFR, PSA #### [address] [address] CO2 [Moles/Vol] 28 mmol/L Normal 23-31 On license of [facility] ([place]) Comment on above: Performed By: #### C BC, ADIFF, ANEU, CMP, LIPID, GFR, PSA #### [address] [address] Creatinine [Mass/Vol] 1.49 mg/dL High 0.70-1.30 [facility] ([place]) Comment on above: Performed By: #### C BC, ADIFF, ANEU, CMP, LIPID, GFR, PSA #### [address] [address] Electrolyte Balance 10.0 mEq/L Normal [facility] ([place]) Comment on above: Performed By: #### C BC, ADIFF, ANEU, CMP, LIPID, GFR, PSA #### [address] [address] Globulin 3.7 G/dL Normal [facility] ([place]) Comment on above: Performed By: #### C BC, ADIFF, ANEU, CMP, LIPID, GFR, PSA #### [address] [address] Glucose [Mass/Vol] 127 mg/dL High 80-115 [facility] ([place]) Comment on above: Performed By: #### C BC, ADIFF, ANEU, CMP, LIPID, GFR, PSA #### [address] [address] Potassium [Moles/Vol] 5.0 mmol/L Normal 3.5-5.1 [facility] ([place]) Comment on above: Performed By: #### C BC, ADIFF, ANEU, CMP, LIPID, GFR, PSA #### [address] [address] Sodium [Moles/Vol] 139 mmol/L Normal 136-145 [facility] ([place]) Comment on above: Performed By: #### C BC, ADIFF, ANEU, CMP, LIPID, GFR, PSA #### [address] [place], [place] [address] Total Protein 7.0 G/dL Normal 6.4-8.2 [facility] ([place]) Comment on above: Performed By: #### C BC, ADIFF, ANEU, CMP, LIPID, GFR, PSA #### [address] [place], [place] [address] Urea nitrogen [Mass/Vol] 21 mg/dL High 7-18 [facility] ([place]) Comment on above: Performed By: #### C BC, ADIFF, ANEU, CMP, LIPID, GFR, PSA #### [address] [place], [place] [address] LABORATORYOrdered By: Sathya Odell on 07-07-2021 Albumin BCP dye [Mass/Vol] 3.3 G/dL Invalid Interpretation Code 3.4 - 4.8 G/dL AO ADM SS Albumin/Globulin [Mass ratio] 0.9 {ratio} Invalid Interpretation Code 1.1 - 2.5 ratio AO ADM SS ALP [Catalytic activity/Vol] 82 U/L Invalid Interpretation Code 40 - 135 U/L AO ADM SS ALT With P-5'-P [Catalytic activity/Vol] 24 U/L Invalid Interpretation Code 16 - 63 U/L AO ADM SS AST With P-5'-P [Catalytic activity/Vol] 16 U/L Invalid Interpretation Code 10 - 40 U/L AO ADM SS Bilirubin [Mass/Vol] 0.6 mg/dL Invalid Interpretation Code 0.2 - 1.0 mg/dL AO ADM SS Calcium [Mass/Vol] 9.0 mg/dL Invalid Interpretation Code 8.4 - 10.2 mg/dL AO ADM SS Chloride [Moles/Vol] 101 mmol/L Invalid Interpretation Code 98 - 107 mmol/L AO ADM SS Cholesterol [Mass/Vol] 165 mg/dL Invalid Interpretation Code 0 - 200 mg/dL AO ADM SS Cholesterol in HDL [Mass/Vol] 56 mg/dL Invalid Interpretation Code 40 - 60 mg/dL AO ADM SS Cholesterol in LDL [Mass/Vol] 91 mg/dL Invalid Interpretation Code 0 - 130 mg/dL AO ADM SS CO2 [Moles/Vol] 28 mmol/L Invalid Interpretation Code 23 - 31 mmol/L AO ADM SS Creatinine [Mass/Vol] 1.49 mg/dL Invalid Interpretation Code 0.70 - 1.30 mg/dL AO ADM SS Electrolyte Balance 10.0 mEq/L Invalid Interpretation Code AO ADM SS Globulin 3.7 G/dL Invalid Interpretation Code AO ADM SS Glucose [Mass/Vol] 127 mg/dL Invalid Interpretation Code 80 - 115 mg/dL AO ADM SS Potassium [Moles/Vol] 5.0 mmol/L Invalid Interpretation Code 3.5 - 5.1 mmol/L AO ADM SS Prostate specific Ag [Mass/Vol] 0.89 ng/mL Invalid Interpretation Code 0.00 - 4.00 ng/mL AO ADM SS Protein [Mass/Vol] 7.0 G/dL Invalid Interpretation Code 6.4 - 8.2 G/dL AO ADM SS Sodium [Moles/Vol] 139 mmol/L Invalid Interpretation Code 136 - 145 mmol/L AO ADM SS Triglyceride [Mass/Vol] 89 mg/dL Invalid Interpretation Code 0 - 150 mg/dL AO ADM SS Urea nitrogen [Mass/Vol] 21 mg/dL Invalid Interpretation Code 7 - 18 mg/dL AO ADM SS Urea nitrogen/Creatinine [Mass ratio] 14 ratio Invalid Interpretation Code 7 - 27 ratio AO ADM SS LABORATORYOrdered By: Colette Garcia on 07-07-2021 Appearance (U) Cloudy *ABN* (07/07/21 11:05 AM) Invalid Interpretation Code Clear AO Auto Urine SS Bacteria LM.HPF (Urine sed) [#/Area] 1 /[HPF] Invalid Interpretation Code AO Auto Urine SS Bilirubin Ql (U) Negative (07/07/21 11:05 AM) Invalid Interpretation Code Negative AO Auto Urine SS Color (U) Yellow (07/07/21 11:05 AM) Invalid Interpretation Code AO Auto Urine SS Crystals.amorphous LM.HPF (Urine sed) [#/Area] 2 /[HPF] Invalid Interpretation Code AO Auto Urine SS Glucose Test strip (U) [Mass/Vol] Negative Invalid Interpretation Code Negativemg/d L AO Auto Urine SS Hemoglobin Auto test strip (U) [Mass/Vol] Negative (07/07/21 11:05 AM) Invalid Interpretation Code Negative AO Auto Urine SS Ketones Ql (U) Negative Invalid Interpretation Code Negativemg/d L AO Auto Urine SS UA Leuk Est Trace *ABN* (07/07/21 11:05 AM) Invalid Interpretation Code Negative AO Auto Urine SS UA Nitrite Negative (07/07/21 11:05 AM) Invalid Interpretation Code Negative AO Auto Urine SS UA pH 5.5 (07/07/21 11:05 AM) Invalid Interpretation Code 5.0 - 8.0 AO Auto Urine SS UA Protein Negative Invalid Interpretation Code Negativemg/d L AO Auto Urine SS UA RBC 0-5 /HPF Invalid Interpretation Code None Seen/HPF AO Auto Urine SS UA Spec Grav 1.025 (07/07/21 11:05 AM) Invalid Interpretation Code 1.015-1.025 AO Auto Urine SS UA Specimen Type Clean Catch (07/07/21 11:05 AM) Invalid Interpretation Code AO Auto Urine SS UA Squam Epithelial 5-10 /HPF Invalid Interpretation Code None Seen/HPF AO Auto Urine SS UA Urobilinogen 0.2 E.U./dL Invalid Interpretation Code 0.2-1.0E.U./ dL AO Auto Urine SS WBC LM.HPF (Urine sed) [#/Area] 0-5 /HPF Invalid Interpretation Code None Seen/HPF AO Auto Urine SS LABORATORYOrdered By: Tila Chavez on 07-07-2021 Basophil, Absolute 0.00 103/mcL Invalid Interpretation Code 0.00 - 0.19 10^3/mcL AO Auto Heme SS Basophils/100 WBC (Bld) 0.6 % Invalid Interpretation Code 0.0 - 2.5 % AO Auto Heme SS Eosinophil, Absolute 0.20 103/mcL Invalid Interpretation Code 0.00 - 0.40 10^3/mcL AO Auto Heme SS Eosinophils/100 WBC (Bld) 2.2 % Invalid Interpretation Code 0.0 - 7.0 % AO Auto Heme SS Erythrocyte distribution width (RBC) [Ratio] 13.4 % Invalid Interpretation Code 11.5 - 14.5 % AO Auto Heme SS Hematocrit (Bld) [Volume fraction] 39.6 % Invalid Interpretation Code 42.0 - 52.0 % AO Auto Heme SS Hemoglobin (Bld) [Mass/Vol] 13.3 G/dL Invalid Interpretation Code 14.0 - 18.0 G/dL AO Auto Heme SS Lymphocyte, Absolute 1.10 103/mcL Invalid Interpretation Code 0.77 - 3.85 10^3/mcL AO Auto Heme SS Lymphocytes/100 WBC (Bld) 14.5 % Invalid Interpretation Code 10.0 - 50.0 % AO Auto Heme SS MCH (RBC) [Entitic mass] 30.3 pg Invalid Interpretation Code 27.0 - 31.2 pg AO Auto Heme SS MCHC (RBC) [Mass/Vol] 33.5 G/dL Invalid Interpretation Code 31.8 - 35.4 G/dL AO Auto Heme SS MCV (RBC) [Entitic vol] 90.6 fL Invalid Interpretation Code 80.0 - 94.0 fL AO Auto Heme SS Monocyte, Absolute 0.70 103/mcL Invalid Interpretation Code 0.15 - 1.00 10^3/mcL AO Auto Heme SS Monocytes/100 WBC (Bld) 9.4 % Invalid Interpretation Code 1.7 - 13.0 % AO Auto Heme SS Neutrophil, Absolute 5.60 103/mcL Invalid Interpretation Code 2.85 - 6.16 10^3/mcL AO Auto Heme SS Neutrophils/100 WBC (Bld) 73.3 % Invalid Interpretation Code 37.0 - 80.0 % AO Auto Heme SS Platelet mean volume (Bld) [Entitic vol] 7.6 fL Invalid Interpretation Code 7.4 - 10.4 fL AO Auto Heme SS Platelets (Bld) [#/Vol] 366 103/mcL Invalid Interpretation Code 130 - 400 10^3/mcL AO Auto Heme SS RBC (Bld) [#/Vol] 4.37 106/mcL Invalid Interpretation Code 4.04 - 6.13 10^6/mcL AO Auto Heme SS WBC (Bld) [#/Vol] 7.60 103/mcL Invalid Interpretation Code 4.60 - 10.80 10^3/mcL AO Auto Heme SS LABORATORYOrdered By: SYSTEM SYSTEM on 07-07-2021 GFR 57 ml/min/1.73sqm Invalid Interpretation Code AO Chemistry S GFR Non- 47 ml/min/1.73sqm Invalid Interpretation Code AO Chemistry S LIPIDon 07-07-2021 Cholesterol [Mass/Vol] 165 mg/dL Normal 0-200 [facility] ([place]) Comment on above: Result Comment: Chol esterol Reference Interval: Less than 200 Desirable 200-239 Borderline high risk 240 and above High risk Performed By: #### C BC, ADIFF, ANEU, CMP, LIPID, GFR, PSA #### [address] [address] Cholesterol in HDL [Mass/Vol] 56 mg/dL Normal 40-60 [facility] ([place]) Comment on above: Performed By: #### C BC, ADIFF, ANEU, CMP, LIPID, GFR, PSA #### [address] [address] Cholesterol in LDL [Mass/Vol] 91 mg/dL Normal 0-130 [facility] ([place]) Comment on above: Performed By: #### C BC, ADIFF, ANEU, CMP, LIPID, GFR, PSA #### [address] [address] Triglyceride [Mass/Vol] 89 mg/dL Normal 0-150 [facility] ([place]) Comment on above: Result Comment: Trig lyceride Reference Interval: Less than 150 Normal 150-199 Borderline high risk 200-499 High risk 500 or higher Very high risk Performed By: #### C BC, ADIFF, ANEU, CMP, LIPID, GFR, PSA #### [address] [address] PSAon 07-07-2021 Prostate Specific Antigen 0.89 ng/mL Normal 0.00-4.00 [facility] ([place]) Comment on above: Performed By: #### C BC, ADIFF, ANEU, CMP, LIPID, GFR, PSA #### [address] [address] UAon 07-07-2021 Color (U) Yellow Normal [facility] ([place]) Comment on above: Performed By: #### U A, UAMICAO #### [address] [address] Glucose (U) [Mass/Vol] Negative Normal Negative [facility] ([place]) Comment on above: Performed By: #### U A, UAMICAO #### [address] [address] Ketones Ql (U) Negative Normal Negative [facility] ([place]) Comment on above: Performed By: #### U A, UAMICAO #### [address] [place] [address] UA Appear Cloudy Abnormal Clear [facility] ([place]) Comment on above: Performed By: #### U A, UAMICAO #### [address] [address] UA Blood Negative Normal Negative [facility] ([place]) Comment on above: Performed By: #### U A, UAMICAO #### [address] [address] UA Leuk Est Trace Abnormal Negative [facility] ([place]) Comment on above: Performed By: #### U A, UAMICAO #### [address] [address] UA Nitrite Negative Normal Negative [facility] ([place]) Comment on above: Performed By: #### U A, UAMICAO #### [address] [address] UA pH 5.5 Normal 5.0 - 8.0 [facility] ([place]) Comment on above: Performed By: #### U A, UAMICAO #### [address] [address] UA Protein Negative Normal Negative [facility] ([place]) Comment on above: Performed By: #### U A, UAMICAO #### [address] [address] UA Spec Grav 1.025 Normal 1.015-1.025 [facility] ([place]) Comment on above: Performed By: #### U A, UAMICAO #### [place] [address] [address] UA Specimen Type Clean Catch Normal [facility] ([place]) Comment on above: Performed By: #### U A, UAMICAO #### [address] [address] UA Urobilinogen 0.2 E.U./dL Normal 0.2-1.0 [facility] ([place]) Comment on above: Performed By: #### U A, UAMICAO #### [address] [address] Urobilinogen (U) [Mass/Vol] Negative Normal Negative [facility] ([place]) Comment on above: Performed By: #### U JUSTO Laboy #### [address] [place], [place] [address] Auth for Release of Medical Recordson 07-01-2021 Auth for Release of Medical Records [id number] 0CD:127 [facility] Ambulatory Clinical Summaryo n 04-29-2021 Ambulatory Clinical Summary {[id number] -}[id number] [facility] Ambulatory Clinical Summary {[id number]}CD:[id number] [facility] Consent for Flu Vaccineon Consent for Flu Vaccine [id number] 0CD:127 [facility] Family Medicine Office/Clini c Noteon 04-29-2021 Family Medicine Office/Clinic Note Chief Complaint Patient presents for F/u on ADHD and DM HPI Staff Nash is a 70 year old male who presents for F/u on DM and ADHD. 124.9 Patient is here for follow up on Diabetes. Refills- no How often are you checking your blood sugars? times per day- has not been checking them What are your average readings? 126 has been a couple weeks ago Last Eye Exam? 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 January 6.8 Do you have any of the following symptoms? Vision problems?- no GI-Nausea/Vomiting/blo ating? no Light headed? - no Paresthesia, Ulcerations or sores? no History of Present Illness She reports today for follow-up of ADHD and diabetes mellitus. He denies any hypoglycemic events since last seen. By the way has had none of those transient global ischemic moments since his first 1. In general he has been doing well he recently passed his lifesaving course. 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 Colonoscopy patient reports occurred in his late 50s so he is about ready for his 10-year interval study. He is not sure when his last PSA was performed. I informed the patient that since his last one was done at [facility] I would suggest that we have not done by the same provider since he felt comfortable with the care he received at that time alternatively we could set him up with one of the surgeons at [place] near his home Patient has been actively swimming on a regular basis is managed to lose almost 9 pounds in 3 months an average of 3 pounds per month he attributes this to his recent dental work. Review of Systems PHQ Score Initial Depression Screen Score: 0 ROS - Provider Constitutional: no fever, no chills, no sweats, no weakness. Skin: no Jaundice, no rash, no lesions, no petechiae. ENMT: no ear pain, no sore throat, no congestion, no hoarseness. Respiratory: no shortness of breath, no cough, no orthopnea, no wheezing. Cardiovascular: no chest pain, no palpitations, no edema. Gastrointestinal: no nausea, no vomiting, no diarrhea, no GI bleeding. Genitourinary: no dysuria, no hematuria, no discharge, no pain. Musculoskeletal: no back pain, no trauma. Neurologic: no headache, no dizziness, no numbness, no weakness. Psychiatric: no sleeping problems, no irritability, no mood swings/depression. Heme/Lymph: no bleeding tendency, no bruising tendency, no petechiae, no swollen no deepthi. Allergy/Immuno logic: no seasonal allergies, no food allergies, no recurrent infections, no impaired immunity. Physical Exam Vitals & Measurements T: 36.7 ?C (Oral) HR: 72(Peripheral) BP: 126/78 SpO2: 98% HT: 190 cm HT: 190.0 cm WT: 124.9 kg WT: 124.9 kg BMI: 34.6 Date Result Name Ind Value Ref Range 01/28/2021 14:46 Glucose Lvl 99 mg/dL (55 - 199) 01/28/2021 14:46 BUN 13 mg/dL (5 - 21) 01/28/2021 14:46 Creatinine 0.8 mg/dL (0.5 - 1.3) 01/28/2021 14:46 eGFR >60 mL/min/1.73 m2 (>=59 - ) 01/28/2021 14:46 eGFR AA >60 mL/min/1.73 m2 (>=59 - ) 01/28/2021 14:46 BUN/Creat Ratio 16 (10 - 20) 01/28/2021 14:46 Sodium Lvl 139 mmol/L (135 - 145) 01/28/2021 14:46 Potassium Lvl 4.1 mmol/L (3.5 - 5.3) 01/28/2021 14:46 Chloride 102 mmol/L (101 - 111) 01/28/2021 14:46 CO2 24 mmol/L (21 - 31) 01/28/2021 14:46 AGAP ((H)) 17 mEq/L (6 - 16) 01/28/2021 14:46 Calcium Lvl 9.2 mg/dL (8.9 - 11.1) 01/28/2021 14:46 Magnesium 2.1 mg/dL (1.3 - 2.4) 01/28/2021 14:46 Hgb A1C % ((H)) 6.8 % ( - <=5.9) Assessment/Plan 1. Type 2 diabetes mellitus (E11.9: Type 2 diabetes mellitus without complications) Overall excellent control of diabetes would like to repeat an A1c sometime in the next 4 to 6 weeks. Patient of I have discussed at least every 4 months versus every 6 months based upon personality traits if needing more frequent supervision. Patient sees his artificial breeding ranch supervisor quarterly. His last eye exam was in August scheduled for this August. 2. ADHD (attention deficit hyperactivity disorder) (F90.9: Attention-deficit hyperactivity disorder, unspecified type) No change in ADHD medicine though have discussed with the patient today the importance of finding times to reduce the quantity of stress on her brain. 3. Adult BMI 35.0-35.9 kg/sq m (Z68.35: Body mass index [BMI] 35.0-35.9, adult) Continue the excellent work with regards to increase activity and decrease caloric intake. Or 4. Prostate cancer screening (Z12.5: Encounter for screening for malignant neoplasm of prostate) Patient denies any change in stream however he is due for his yearly prostate PSA screening test. We no longer perform digital exam unless there are symptoms consistent with change in stream. 5. Colon cancer screening (Z12.11: Encounter for screening for malignant neoplasm of colon) Advised patient needs and is due for interval colonic screening. He will reconnect with prior provider at [facility] (more content not included)... [facility] Comment on above: Result Comment: Elec tronically Signed By: Mary BELTRE, Matt Kirby\.br\Date and Time Signed: 04/29/21 14:05 EDT Family Medicine Office/Clini c Noteon 03-01-2021 Family Medicine Office/Clinic Note Chief Complaint Patient presents for F/u on DM and ADHD HPI Staff Nash is a 70 year old male who presents for F/u on ADHD and DM. COVID-19 Vaccine- Moderna 2 doses Patient is here for follow up on Diabetes. Refills no refills needed How often are you checking your blood sugars? times per day- 3 weeks ago was the last time he checked Last FBS day/reading? 130 3 weeks ago Last Eye Exam?- May Do you see a Foot Dr./last exam?- yes- last foot exam last week Do you exercise? no Last A1C?- over a year ago Do you have any of the following symptoms? Vision problems? no GI-Nausea/Vomiting/blo ating? no Light headed? no Paresthesia, Ulcerations or sores? no ADHD Patient has not been having any problems. He states has been experiencing sore muscle/ neck pain. LT side has been going on for around a month. No recent injuries or falls. Is having troubles/ problems turning head and when driving. Did see Chiropractor- 2 weeks ago and will see him again Tomorrow. History of Present Illness 70-year-old male presents for follow-up of diabetes and ADHD. Patient appears to be doing fairly well on his diabetes his who is a registered dietitian is closely following him. He is mostly compliant to her instructions. We have reviewed the ABCD EF of diabetic management. Does not record his blood sugars on a regular basis overall he has been fairly stable. He does not exercise on a regular basis a lot of it is due to his psoriatic arthritis. He has not recently had an A1c. Some of it is due to the Covid and some of it is patient's control overall has been excellent. Patient reports no significant issues associated with insomnia or irritability. Current medication has been doing well. He denies any untoward events of palpitations or change in exercise tolerance He is been having some left-sided neck pain. Nonexertional and nothing that would make him think cardiac it is purely musculoskeletal description. Typically when he is turning his head neck associated with looking over his shoulder to check for oncoming traffic. Currently under the care of with chiropractic physician. We have discussed my hesitancy to prescribe any nonsteroidal that includes the rxrb-ydd-zdwpeks as a function of his diabetes and risk of kidney disease. Review of Systems PHQ Score Initial Depression Screen Score: 0 ROS - Provider Constitutional: no fever, no chills, no sweats, no weakness. Skin: no Jaundice, no rash, no lesions, no petechiae. ENMT: no ear pain, no sore throat, no congestion, no hoarseness. Respiratory: no shortness of breath, no cough, no orthopnea, no wheezing. Cardiovascular: no chest pain, no palpitations, no edema. Gastrointestinal: no nausea, no vomiting, no diarrhea, no GI bleeding. Genitourinary: no dysuria, no hematuria, no discharge, no pain. Musculoskeletal: no back pain, no trauma. Neurologic: no headache, no dizziness, no numbness, no weakness. Psychiatric: no sleeping problems, no irritability, no mood swings/depression. Heme/Lymph: no bleeding tendency, no bruising tendency, no petechiae, no swollen no deepthi. Allergy/Immuno logic: no seasonal allergies, no food allergies, no recurrent infections, no impaired immunity. Physical Exam Vitals & Measurements T: 36.8 ?C (Oral) HR: 83(Peripheral) BP: 118/80 SpO2: 95% HT: 190.0 cm HT: 190 cm WT: 128.8 kg WT: 128.8 kg BMI: 35.68 Constitutional: Mildly overweight white male no apparent distress Eyes: Pupils equal round react light to light and accommodation no icterus ENT: Significantly hard of hearing, usually wearing amplified hearing devices. No signs of congestion Neck: No bruits thyroid not enlarged without masses. Carotid without bruit Chest: Clear to auscultation Heart: S1-S2 normal without murmur gallop or rub Extremities: No significant peripheral edema Psych: Reasonable function reason orientation memory affect and judgment no signs of irritability or intoxication Neuro: Cranial nerves II through XII intact with the exception of impaired hearing. Assessment/Plan 1. ADHD (attention deficit hyperactivity disorder) (F90.9: Attention-deficit hyperactivity disorder, unspecified type) Maintain medication current level 2. 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 2 diabetes mellitus (E11.29: Type 2 diabetes mellitus with other diabetic kidney complication) We will check an A1c today's date. Also obtain a BMP to confirm no decrease in kidney function. Recommend an A1c less than 7. 3. Obesity with body mass index (BMI) of 30.0 to 39.9 (E66.9: Obesity, unspecified) Need to continue to reduce at least by 800 fay/day of current intake that and at least 150-180 minutes a week at target heart rate blood pressure is excellent. 4. Adult BMI 35.0-35.9 kg/sq m (Z68.35: Body mass index [BMI] 35.0-35.9, adult) I discussed with the patient the importance of getting his BMI below 31 if possible less than 28. Will obtain A1c as well as BMP looking at kidney function in addition to serum mag (more content not included)... [facility] Comment on above: Result Comment: Elec tronically Signed By: Mary BELTRE, Matt Kirby\.br\Date and Time Signed: 03/01/21 07:53 EDT Coding Summary.on 02-06-2021 Coding Summary. [id number] Gh 0bWw+PGhlYWQ+XK5TEUYjH 08aeLVggV1KZ2lYLC5SKCS CJNRQDN4MQT8oxZN7AJvdF 2VybiAv CxwctMZfVH61RNv5WCZ1yW snTCzmyO1acZQnU1c5MrLe DW47kN35NQtnQBHtLyZ8Am ZpbjsgbWFy X4idPhHozUSpPir+PHRhYm xlIHdpZHRoPScxMDAlJyBz nXfiDC3cJn2eEMLaWWPhhM xhcHNlOiBj m4xwPDXiGNteVH8ziSidE7 LqtBQ8RAJjv3p7Ru43nMQ+ IQUdHHZ6rEyhUVcjv149Xz Yis0xkFKK3 tEOpLCfnJZI0H03ds6H9OY XcSKEdSMC9xFD1gL3hsEtf pwhcZ5DtsYVlBuY7UCZ2yV NsoD7roUmm lsvmgD2pKga+Q76TCQ6HCF ZKZW9QHvo7X5OyBjudlRO+ HX20RFTmIZ15zKJhcYHzg4 zfgDx0JpEb TKSpJFI9mWizZKufz1XpXS NdC92okJMoj3S5OJSeeVvp eKBbOhPrxVI5iN8mAOuthb fso7gucdai Oqxva6zqkc20jG36X09hTD woHWCeGIK3ZZQqBNOhfUhk dd3fyB0gPk5+EXyph9okj7 jrrUr6YdPn JRAuerNoaIllXDJ7z8EqMs 20Y1JhaPdkn4DvCpw0op10 bQXaj0Y8zZD0HHuyQPNanY 5vMMsnJlT4 RYVaEoOftA18uXEqQIwuAo 2ghGhipXhxGS2xCELtrjxu LDAmlA9cELBqbOHcoIyuZX 4wNTBpbjtm s390VfQvGTC8YSEniCHfT0 JonQ5yVyIqQMPwKEBgA2Or vLNqHOpyI767FVduLpR0YB AgyiOrS4Ds DBUgeKnoLmO7a8K4Yx2Rp6 KoddysDYE7KRjpWMA5KbT0 YgSkMlE8M0CqIvf4BWWeeE mwDY5uL1Yk BXQusziqydtjoXQ4DYNoFF AmvE71oHUaYMspLl8oe4N2 k475BZBwIZJqvM57Vf1yeV ogMTBwdCBU pV4esslel7cugmzsWvGdJV AaGKn7KJc8IEKfuTmxGyWr PDA7TuS3MDZ5lVYdyA2jzB ewwwmusN2u Oyc+G02ibK4uLPL1AZN2dr zpIQNxatMkPY68JE13C7Tn PjwvdGFibGU+PGRpdiBzdH fyWR9hVlMn t9wwe8KzCZvzQ5CwBEJvOY pkNxw0HCMbGGY5tUR6pL3c PIWbINyfz2N7vIH1M9Zxxt Jztp2kh0ru HTOgDPheD90uhSHjh5P2DV UgkKM5MRGcpHfxWsXqsI30 Oyc+ALMowImja1JiFbfvl1 ppj3yzbFl3 ZpIgLFPestMqcUidCWF0h9 DzQc48V12oLJdgDRWjAWQu HCLxWQVdrMehse0dnX4mGs 8+PGNvbCB3 lDL3jH7rNSSnUxE0CSbxT4 89ImBacUOdCfkzy6jjl0fk zVh9BdMtYUFvabTtgZhsIF Y3h1CcFr70 N57aWDsaGJWkHKVvEWGsYF HmbNsmav3ljM1uCo4+PC9j u0fqic45xQ53tXW+PHRkIH C7pQxhMFvh DQPlwJ4bSNslLaI9QHNeMr NthJ41fQDzWOraDt1lfRtz nDemSZ0hCKNcmlwmi764Hx Nnj9tvHFZq xSUeNHcjRTZ2X45pq2R2UH AfAPYyKUM5uEZ2yR2jdPms bjogbGVmdDsgdmVydGljYW zpUVwtE119 IHRvcDsnPlBhdGllbnQgTm BjQXg2M3ClDgb9XZGdzGre EL7jnPPkKWlzEp4ipEaghR liFT2mZKMf jcxvf450JnFvq6qtKBVhmN ZfFVofPUS2U11tl4F0KNTo XBWaNCK5kJV5vZ0poYcgph ogbGVmdDsg kpReoXxxLDtaOTosQ629KK RvcDsnPkJpcnRoIERhdGU6 LB24DA39sXApt1W7jNC2G4 BhZGRpbmct riaqvWK7VFSdFRGyaF17Zu 3rxEicHe9nKIHoKHZ0HWZb fGUuK8DawP9jHlMeNHIpXW EtG3KqvBTh ZXfwX864EPetNrS2CFZytr WdN9PsORLrqBykOfB9x4H6 Kd3LS2Q9WG83IY07pMOpz4 A6zGA9A4Ym ERVnuuhakydxaDB2IINiPK EfeD35Fb1wnHroRb8bBFUt ZUZ0JKHjlSChS4LztC5nGu AjMDAwMDAw N4ShkPFsJSmcK466VLloLu O5WDXmdfRrY3UtKBJvvUqx AeM1v5A5Fh5YVPi0IK96BW 95mJEbl2B5 bWS0G1KqRZAyolofnrdepM T8DXDhNRXdvK72Ua2nkUog Ft8xZVTbBVA6GSDahNUcA2 RrtA2oUbDs OBPbSMPrT3EhfWGvOSdiG0 14KQgyVzZ1ZBGlpnIdS3Xs AFXdsXugAqM0e2W7Ck9WLF DaND28AZS8 dZY0YS11WN90H4EpAksrpE FibGU+PHRhYmxlIHdpZHRo TXkaIKWfMdBodMhlLT6aLa 9yZGVyLWNv oRypaLTnGmVwt5wsQAWnBD dbSI4ipHvaF8EcyIH2DGQm i8q8Ji87K71pP7TsiXP+PG QujEY3fUT0 uU1uSiEvCwC1OGggW340Bo CuwOXlMeqnh0whj1luxQw6 QgV3HSXxthXiwUzzFVG3i3 BuSu99K33z IHdpZHRoPSIxNSUiIHZhbG gtew8inP4wEu4+PGNvbCB3 tEE7gP9eEiRjDlS8XSziM9 49InRvcCIv Ltfwi9crd9lnlZb7NgRxMA DwryPhdPztCZO4l8TvBx71 Q1UtkNnxg6HaDim4qa27aG Ewk1T0iGZ0 I5FbNQSrbbxktRAsiWayTL 1yUPUpmbvvGTCkhP6tAPOl U8t2ZvBeOlI8YMzsQ9Lzeg X6RKCtnAQx TAgbAPD6H28xv7R9RBWoHY PwTCH4yDO0oR9kzTgplrte bGVmdDsgdmVydGljYWwtYW huF628JEOl dVepDBQxdG3sEBFriFAwiU wjKY3lYDKnbuqdIeSBNuOR HAwsAGCEYkLUWEEORS23IE 06dJWdf2V0 zOR6S0VpJFHnajwurwmpvH B0UWDfHIQwzU50zNNpGBvc Ro8py2T3m804ZDIjWRVpvS 29Vu3hfBcw EAAopYWNbM3rvqadu8twda izCeGxRXWwBUg8MAr3UYSt rFojUxCxQQA1DrJ2SLL5aE GxlQ3vfRnc ugpziR8xDpq+MDUvMTkvMT u7VwssxFE+MNFcCGS5iGjt BCdkYKZqmF6qSSZzI9s3Od UfAgO6CNqi J0EeSWYwwcjrBr57aE2kPg SwOoZ4QCrkJ7FkaeG7HNEq vOSmWGikZEN4A01ie3L3VQ MwMDAwMDA7 rPZ0fE7dtIyeezsxaFAvcW fcisEugOkwWNeuRKxqL084 HNRgaEkkFvL2RVbyKBRxQQ 67EP11oBWg p3N3jZK2Y7UaEUNxzsmgsq jbrHD2GMQhIDRbiS42jQHi KDvaGt6ge7D1i162NWNkET EjqZ34Xq8j tYjmLCEspINNqM8gxlzin7 ehxjndGkHcRHOoDJe4NMh3 QCEpoOpuQxHgUQP8BlD7SD X2mHYcdO3b aIeddzpvnS2wWtj+TWFsZT wvdGQ+UWZvCBX4iKheQRoj LMTamN3jHMYgB8t0CfZuWo R6EFrzB9Yc JBXdenraWq71rI8xGbBhWz D8YEopL6OjmnG0SUWjlFVk OSfcORW1S95ao7K4PLPmPO DwUFH3cUJ4 pI3puLbcqyqxtYSilDqieb KioHobAMocJXwwO933XCRm qRvaZeckOdTSed0uVD9mVi wvdGQ+PC90 mh69A2DzKippBsx0HALeUS A9uMU9dE6oTLNpLBqno6D9 hGY7F4ElsqEuex2zx6aiPI UaZNriJ12y oABxy6S1BGQnqKI9XTPimH neLpSznN95Cvx+PGNvbGdy k1WsNrhyt7xfg4relPl2Lb MwJSIgdmFs fAfpSWV8k8SmJi40O45dVI dpZHRoPSIzMCUiIHZhbGln up1qqB0cCv9+IWFzhRO1wH U9hP2rKnGo NpU6DBlgC766CnEwgLDrVd rcw2tgx0gctJl5FiPiZGEj odXpzWihMIM4y9WlYp12I6 HulYonc5Qw Ovc3hc81hNYxn3Q7nQJ2I0 EkWAGyfmwidERsvQekUW3i CNEdliqrDLAzpC3oANAjZ0 b4EdPePzT8 PDwvS9UqwaI4OPHolSPrMZ SipTIQcD0abgiyc2mqkter ImWeXUVbGCe6TDx0LIBcxW duOiBsZWZ0 KcZ5IZM0nQLrpG4bbGvywb gtjZ1zRnq+UXo0r8atkYEt CO1dgXG7QB27ZG53eFEvy1 D9mSD8T1Yy TBOyndkxpqkxkPY7CTLtLL IiyF19Oc9muDjjKi6eWZYm HTB5BZOpmOVqQ8LdnC3yJl AjMDAwMDAw G4HgeRKaXHmmI767LWjpLo S0TLUwkuFdQ4WfUKSlzJhu SjI8r5V0Xs6JFL28LD09QL 77eNQvz9V6 gAG4N3LnQAMonuxiupfmuJ I8EUKrKLGehV18Nn5kxFzk Kp1sTKKjOUK6MCSexBTcX4 LfsH6qOtBo QXZjFLAsB8AfgJOxQMehP7 66UBgmTvP3UKKruoBvT0Ao IGBmhCrsEkL6m5M7Lo8MAl 86XH16BI56 uYFgh4B2pRR3M9EpIDTwaw ewgphmfCL5VAYrYJCzyL85 Je8lyRdeEu2fJKNqPJK6IK XfxIZlM0Qw vB0pWsDbTTRrSBCrT8ZssR HxRCjaF148IMllUdL2OQEl abDzJ0PhMUDrbDmpBbG3o0 L4Vx1UJGhg nsa2K1JfXgmbmJB+PC90YW YjGB77tCLrxHEey0dkaOx6 FqIiMIQqZJB8dFkvQQrcn3 WrWNDvP01j bGFw (more content not included)... [facility] BMPon 01-29-2021 Anion gap [Moles/Vol] 17 mmol/L High -16 [facility] Comment on above: Performed By: #### 2 [id number], [id number], [id number], [id number] #### [facility] [address] [place] [address] Calcium [Mass/Vol] 9.2 mg/dL Normal 8.9-11.1 [facility] Comment on above: Performed By: #### 2 494490, [id number], [id number], [id number] #### [facility] [address] [place] [address] Chloride [Moles/Vol] 102 mmol/L Normal 101-111 [facility] Comment on above: Performed By: #### 2 798976, [id number], [id number], [id number] #### [facility] [address] [place] [address] CO2 [Moles/Vol] 24 mmol/L Normal 21-31 [facility] Comment on above: Performed By: #### 2 019452, [id number], [id number], [id number] #### [facility] [address] [place] [address] Creatinine [Mass/Vol] 0.8 mg/dL Normal 0.5-1.3 [facility] Comment on above: Performed By: #### 2 011082, [id number], 8449063, [id number] #### [facility] [address] [place] [address] Glucose [Mass/Vol] 99 mg/dL Normal 55-199 [facility] Comment on above: Result Comment: If t his glucose result represents a fasting glucose, interpretation should refer to the following reference range: 55-99 mg/dL Performed By: #### 2 074395, [id number], [id number], [id number] #### [facility] [address] [place] [address] Potassium [Moles/Vol] 4.1 mmol/L Normal 3.5-5.3 [facility] Comment on above: Performed By: #### 2 928144, [id number], 7773904, [id number] #### [facility] [address] [place] [address] Sodium [Moles/Vol] 139 mmol/L Normal 135-145 [facility] Comment on above: Performed By: #### 2 051367, [id number], 3702060, [id number] #### [facility] [address] [place] [address] Urea nitrogen [Mass/Vol] 13 mg/dL Normal 5-21 [facility] Comment on above: Performed By: #### 2 683569, [id number], 8339238, [id number] #### [facility] [address] [place] [address] Urea nitrogen/Creatinine [Mass ratio] 16 No Units Normal 10-20 [facility] Comment on above: Performed By: #### 2 138579, [id number], [id number], [id number] #### [facility] [address] [place] [address] SccG6qez 01-29-2021 HbA1c (Bld) [Mass fraction] 6.8 % High <=5.9 [facility] Comment on above: Performed By: #### 2 285644, [id number], 8480586, [id number] #### [facility] [address] [place] [address] Magnesiumon 01-29-2021 Magnesium [Mass/Vol] 2.1 mg/dL Normal 1.3-2.4 [facility] Comment on above: Performed By: #### 2 115191, [id number], 2984703, [id number] #### [facility] [address] [place] [address] eGFRon 01-29-2021 GFR/1.73 sq M.predicted among blacks MDRD (S/P/Bld) [Vol rate/Area] mL/min/{1.73_m2} Normal >=59 [facility] Comment on above: Order Comment: Order added by Discern Expert. Result Comment: eGFR is race adjusted. AA=. Performed By: #### 2 430970, [id number], 6064270, [id number] #### [facility] [address] [place] [address] GFR/1.73 sq M.predicted among non-blacks MDRD (S/P/Bld) [Vol rate/Area] mL/min/{1.73_m2} Normal >=59 [facility] Comment on above: Order Comment: Order added by Discern Expert. Result Comment: Director Of Enterprise Strategy allan kidney disease could be indicated at eGFR's of less than 60 mL/min/1.73m2. Kidney failure is indicated at less than 15 mL/min/1.73m2. Performed By: #### 2 179379, [id number], 3859984, [id number] #### [facility] [address] [place] [address] Ambulatory Clinical Summaryo n 01-28-2021 Ambulatory Clinical Summary {[id number] d-7f}[id number] Normal [facility] ED Note-Physicianon 10-22-19 ED Note-Physician [id number] CD:127 Normal [facility] Family Medicine Office/Clini c Noteon 10-15-2020 Family Medicine Office/Clinic Note Chief Complaint Patient presents for scrotum pain As well as interval ADHD visit and diabetes HPI Staff Nash is a 69 year old male who presents for scrotum swelling. Onset- Yesterday Location- RT testicle Redness- yes Swelling- yes Discharge- no Warmth- unknown Radiation of pain- yes RT side of groin Dysuria- no Pain- yes Pain level- 3/10 Injury- no Treatments- None History of Present Illness 69-year-old white male presents today for sudden onset of scrotal swelling. Apparently 2 to 3 days ago he had some blood in his urine. Which then initially resolved. At that time he denied any burning with urination change in frequency. However woke up this morning with a significant swelling of his scrotum. Swelling is substantial on the right side of the groin.. He denies any fever chills or sweats. Denies any change in bowel or bladder habits. Note patient is a diabetic. Patient has seen a urologist in the past at [facility]. That provider has since retired. Patient has not had any surgery. Patient was scheduled next week for ADHD visit. He denies any problems or difficulties medicines been working well without palpitations. He had initially tried to reduce his Zoloft to 50 mg however has gone back to 100 mg a day. Review of Systems PHQ Score Initial Depression Screen Score: 0 ROS - Provider Constitutional: no fever, no chills, no sweats, no weakness. Skin: no Jaundice, no rash, no lesions, no petechiae. ENMT: no ear pain, no sore throat, no congestion, no hoarseness. Respiratory: no shortness of breath, no cough, no orthopnea, no wheezing. Cardiovascular: no chest pain, no palpitations, no edema. Gastrointestinal: no nausea, no vomiting, no diarrhea, no GI bleeding. Genitourinary: no dysuria, no hematuria, no discharge, yes pain. Pain is scrotal associated with swelling. Musculoskeletal: no back pain, no trauma. Neurologic: no headache, no dizziness, no numbness, no weakness. Psychiatric: no sleeping problems, no irritability, no mood swings/depression. Heme/Lymph: no bleeding tendency, no bruising tendency, no petechiae, no swollen no deepthi. Allergy/Immuno logic: no seasonal allergies, no food allergies, no recurrent infections, no impaired immunity. Physical Exam Vitals & Measurements T: 36.7 ?C (Oral) HR: 93(Peripheral) BP: 122/70 SpO2: 97% HT: 190 cm HT: 190.0 cm WT: 128.6 kg WT: 128.6 kg BMI: 35.62 GENERAL: Well developed, well nourished, uncomfortable when moving. HEAD: Normocephalic. EYES: lids and conjunctiva are normal; pupils and irises are normal; funduscopic exam reveals red reflex present bilaterally. ENT: Mildly hard of hearing with hearing bilateral hearing aids. No signs of congestion.. NECK: Neck is supple with full range of motion; No adenopathy. RESPIRATORY: normal respiratory rate and pattern with no distress; normal breath sounds with no rales, rhonchi or wheezes. HEART: normal rate and rhythm without murmurs. ABDOMEN: normal bowel sounds; soft, nondistended without mass. Globoid secondary to obesity. GENITOURINARY: Unable to visualize the glans or the shaft of the penis because of relative phimosis as well as swelling of the scrotum. He has a scrotum slightly bigger softball. Most of the masses on the right side. Could not feel a mass could identify the left testicle and epididymis believe the swelling is a collection of fluid anterior to the right testicle which is displaced posteriorly. Transillumination is present no obvious loop of bowel identified. MUSCULOSKELETAL: No edema noted bilateral lower extremities. SKIN: No rash or lesions noted. NEUROLOGIC: Normal for age. Assessment/Plan 1. Scrotal swelling (N50.89: Other specified disorders of the male genital organs) Have discussed the differential which include epididymitis versus communicating hydrocele versus noncommunicating hydrocele versus incarcerated hernia. Advised the patient that he would be best served for an acute ER evaluation to obtain some type of imaging starting with ultrasound of the scrotum and possibly CT to elucidate the contents of his significant enlarged scrotum. Would also at that time probably consider obtaining a CBC to see if an elevated white blood cell count. If urgent urologic consultation is indicated then ER staff can facilitate. 2. ADHD (attention deficit hyperactivity disorder) (F90.9: Attention-deficit hyperactivity disorder, unspecified type) No side effects with current medication currently on Vyvanse 70 mg a day without palpitations chest pain or change in exercise tolerance. He is also taking Zoloft 100 mg once a day. We will see him back in 3 to 4 months 3. Type 2 diabetes mellitus (E11.9: Type 2 diabetes mellitus without complications) Patient diabetes has been under good control presently on Metformin 500 mg once a day. Sticking to diet most the time. No regular form of exercise other than activity. Follow-up With When Contact Information Matt Hernandez MD In 4 month (more content not included)... [facility] Comment on above: Result Comment: Elec tronically Signed By: Matt Hernandez MD\.br\Date and Time Signed: 10/15/20 14:59 EDT Consultation Noteon 10-03-19 Consultation Note [id number] 0CD:127 [facility] Pre-Certification Formon Pre-Certification Form [id number] CD:127 [facility] CR Wrist Complete 3 Views Le fton 08-28-2020 CR Wrist Complete 3 Views Left Patient Name: NASH FERGUSON Diagnostic Radiology ACCESSION EXAM DATE/TIME PROCEDURE ORDERING PROVIDER [id number] 08/28/2020 10:25 EST CR Wrist Complete 3 MD MACIEJ, DIVINA Serrano Views Left CPT code 63445 Reason For Exam (CR Wrist Complete 3 Views Left) LEFT WRIST PAIN Report LEFT WRIST THREE VIEWS CLINICAL INDICATION: LEFT WRIST PAIN TECHNIQUE: Three views of the left wrist. COMPARISON: 07/17/2020 FINDINGS: Irregularity and spurring of the articular surface of the distal radius compatible with osteoarthrosis. Status post resection of the proximal carpal row. Prominent degenerative changes at the first CMC joint. No acute fracture, dislocation, or acute bone destruction. Decreased soft tissue swelling compared to the prior study. IMPRESSION: 1. Degenerative and postsurgical changes. Decreased soft tissue swelling. Report Dictated on Final Dictating Physician: MD SANCHEZ JOHN R Signed Date and Time: 08/28/2020 2:01 pm Signed by: MD SANCHEZ JOHN R Transcribed Date and Time: 08/28/2020 2:02 Normal [facility] XR WRIST LEFT 3 VWon 021 Patient Name: NASH SHERMAN Diagnostic Radiology ACCESSION EXAM DATE/TIME PROCEDURE ORDERING PROVIDER [id number] 08/28/2020 10:25 EST CR Wrist Complete 3 MD MACIEJ, DIVINA J Views Left CPT code 10378 Reason For Exam (CR Wrist Complete 3 Views Left) LEFT WRIST PAIN Report LEFT WRIST THREE VIEWS CLINICAL INDICATION: LEFT WRIST PAIN TECHNIQUE: Three views of the left wrist. COMPARISON: 07/17/2020 FINDINGS: Irregularity and spurring of the articular surface of the distal radius compatible with osteoarthrosis. Status post resection of the proximal carpal row. Prominent degenerative changes at the first CMC joint. No acute fracture, dislocation, or acute bone destruction. Decreased soft tissue swelling compared to the prior study. IMPRESSION: 1. Degenerative and postsurgical changes. Decreased soft tissue swelling. Report Dictated on --- Final --- Dictating Physician: MD SANCHEZ JOHN R Signed Date and Time: 08/28/2020 2:01 pm Signed by: MD SANCHEZ JOHN R Transcribed Date and Time: 08/28/2020 2:02 [facility] [place] Reva Dimas Incoming Radiology Results From [facility] - 08/28/2020 2:02 PM EST Patient Name: NASH FERGUSON Diagnostic Radiology ACCESSION EXAM DATE/TIME PROCEDURE ORDERING PROVIDER [id number] 08/28/2020 10:25 EST CR Wrist Complete 3 MD WING DEREK J Views Left CPT code 04165 Reason For Exam (CR Wrist Complete 3 Views Left) LEFT WRIST PAIN Report LEFT WRIST THREE VIEWS CLINICAL INDICATION: LEFT WRIST PAIN TECHNIQUE: Three views of the left wrist. COMPARISON: 07/17/2020 FINDINGS: Irregularity and spurring of the articular surface of the distal radius compatible with osteoarthrosis. Status post resection of the proximal carpal row. Prominent degenerative changes at the first CMC joint. No acute fracture, dislocation, or acute bone destruction. Decreased soft tissue swelling compared to the prior study. IMPRESSION: 1. Degenerative and postsurgical changes. Decreased soft tissue swelling. Report Dictated on --- Final --- Dictating Physician: MD SANCHEZ JOHN R Signed Date and Time: 08/28/2020 2:01 pm Signed by: MD SANCHEZ JOHN R Transcribed Date and Time: 08/28/2020 2:02 [facility] [place] CR Wrist Complete 3 Views [facility] 07-17-2020 CR Wrist Complete 3 Views Left Patient Name: NASH FERGUSON Diagnostic Radiology ACCESSION EXAM DATE/TIME PROCEDURE ORDERING PROVIDER [id number] 07/17/2020 09:15 EST CR Wrist Complete 3 MD WING DEREK J Views Left CPT code 28858 Reason For Exam (CR Wrist Complete 3 Views Left) Arthropathic psoriasis, unspecified Report Examination: Left wrist Clinical Indication: Arthropathic psoriasis, unspecified Comparison: 05/22/2020 Findings: Three views left wrist demonstrate proximal carpal row resection. The scaphoid, lunate and triquetrum have been removed. Tiny bone fragments likely related to surgery throughout the wrist. There is osteoarthropathy mild within the distal radial ulnar joint. Osteophyte seen along the radial aspect of the wrist and radial styloid. Degenerative subchondral cyst base of the first metacarpal with degenerative subluxation and degenerative sclerosis. Mild soft tissue swelling circumferentially. Visualized portion of the proximal hand demonstrate metacarpal phalangeal joint space narrowing with small metacarpal head osteophytes digits one and two. Impression: 1. Postsurgical changes consistent with proximal carpal row resection. 2. 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 3. Left wrist soft tissue swelling and probable joint effusion. No definite osseous erosion or osteolysis to suggest infection. Report Dictated on Final Dictating Physician: MD DEL REAL ANTHONY J Signed Date and Time: 07/17/2020 3:59 pm Signed by: MD DEL REAL ANTHONY J Transcribed Date and Time: 07/17/2020 4:00 Normal [facility] XR WRIST LEFT 3 VWon 020 Patient Name: NASH SHERMAN Diagnostic Radiology ACCESSION EXAM DATE/TIME PROCEDURE ORDERING PROVIDER [id number] 07/17/2020 09:15 EST CR Wrist Complete 3 MD WING DEREK J Views Left CPT code 75980 Reason For Exam (CR Wrist Complete 3 Views Left) Arthropathic psoriasis, unspecified Report Examination: Left wrist Clinical Indication: Arthropathic psoriasis, unspecified Comparison: 05/22/2020 Findings: Three views left wrist demonstrate proximal carpal row resection. The scaphoid, lunate and triquetrum have been removed. Tiny bone fragments likely related to surgery throughout the wrist. There is osteoarthropathy mild within the distal radial ulnar joint. Osteophyte seen along the radial aspect of the wrist and radial styloid. Degenerative subchondral cyst base of the first metacarpal with degenerative subluxation and degenerative sclerosis. Mild soft tissue swelling circumferentially. Visualized portion of the proximal hand demonstrate metacarpal phalangeal joint space narrowing with small metacarpal head osteophytes digits one and two. Impression: 1. Postsurgical changes consistent with proximal carpal row resection. 2. 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 3. Left wrist soft tissue swelling and probable joint effusion. No definite osseous erosion or osteolysis to suggest infection. Report Dictated on --- Final --- Dictating Physician: MD DEL REAL ANTHONY J Signed Date and Time: 07/17/2020 3:59 pm Signed by: MD DEL REAL ANTHONY J Transcribed Date and Time: 07/17/2020 4:00 [employer] Incoming Radiology Results From [facility] - 07/17/2020 4:00 PM EST Patient Name: NASH FERGUSON Diagnostic Radiology ACCESSION EXAM DATE/TIME PROCEDURE ORDERING PROVIDER [id number] 07/17/2020 09:15 EST CR Wrist Complete 3 MD WING DEREK J Views Left CPT code 08993 Reason For Exam (CR Wrist Complete 3 Views Left) Arthropathic psoriasis, unspecified Report Examination: Left wrist Clinical Indication: Arthropathic psoriasis, unspecified Comparison: 05/22/2020 Findings: Three views left wrist demonstrate proximal carpal row resection. The scaphoid, lunate and triquetrum have been removed. Tiny bone fragments likely related to surgery throughout the wrist. There is osteoarthropathy mild within the distal radial ulnar joint. Osteophyte seen along the radial aspect of the wrist and radial styloid. Degenerative subchondral cyst base of the first metacarpal with degenerative subluxation and degenerative sclerosis. Mild soft tissue swelling circumferentially. Visualized portion of the proximal hand demonstrate metacarpal phalangeal joint space narrowing with small metacarpal head osteophytes digits one and two. Impression: 1. Postsurgical changes consistent with proximal carpal row resection. 2. 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 3. Left wrist soft tissue swelling and probable joint effusion. No definite osseous erosion or osteolysis to suggest infection. Report Dictated on --- Final --- Dictating Physician: MD DEL REAL ANTHONY J Signed Date and Time: 07/17/2020 3:59 pm Signed by: MD DEL REAL ANTHONY J Transcribed Date and Time: 07/17/2020 4:00 [place], [place] Glucose,Bedsideon 06-17-2020 Glucose [Mass/Vol] 151 mg/dL High 70-100 [facility] Comment on above: Result Comment: Test performed by glucose meter. Results may be 10%-15% lower than serum/plasma values. (CLIA ID [id number]) Performed By: #### B GLU #### [facility] [address] [place] [address] Glucose [Mass/Vol] 113 mg/dL High 70-100 [facility] Comment on above: Result Comment: Test performed by glucose meter. Results may be 10%-15% lower than serum/plasma values. (CLIA ID [id number]) Performed By: #### B GLU #### [facility] [address] [place] [id number] POCT Glucoseon 06-17-2020 Glucose [Mass/Vol] 151 mg/dL High 70 - 100 mg/dL [place], [place] Comment on above: Test performed by gl ucose meter. Results may be 10%-15% lower than serum/plasma values. (CLIA ID [id number]) Interpretation and review of laboratory results Abnormal [place], [place] Test Performed by [facility], [address] , [address] Glucose [Mass/Vol] 113 mg/dL High 70 - 100 mg/dL [place], [place] Comment on above: Test performed by gl ucose meter. Results may be 10%-15% lower than serum/plasma values. (CLIA ID [id number]) Interpretation and review of laboratory results Abnormal [place], [place] Test [facility], [address] , [address] Basic Metabolic Panelon 11-1 0-2020 Calcium [Mass/Vol] 8.8 mg/dL Normal 8.4-10.4 [facility] Comment on above: Performed By: #### H EMOWolfgang, BMP3 #### [facility] [address] [place] [address] Anion gap [Moles/Vol] 6 Normal [facility] Comment on above: Performed By: #### H EMOG, BMP3 #### [facility] [address] [place] [address] CO2 [Moles/Vol] 25 mmol/L Normal 22-30 [facility] Comment on above: Performed By: #### H NESTOR, BMP3 #### [facility] [address] [place] [address] Creatinine [Mass/Vol] 0.76 mg/dL Normal 0.52-1.25 [facility] Comment on above: Performed By: #### H NESTOR, BMP3 #### [facility] [address] [place] [address] GFR/1.73 sq M predicted among blacks MDRD (S/P/Bld) [Vol rate/Area] mL/min/{1.73_m2} Normal >60 [facility] Comment on above: Performed By: #### H NESTOR, BMP3 #### [facility] [address] [place] [address] GFR/1.73 sq M predicted among non-blacks MDRD (S/P/Bld) [Vol rate/Area] mL/min/{1.73_m2} Normal >60 [facility] Comment on above: Result Comment: KDIG O guidelines provide the following GFR categories: Stage GFR(ml/min/1.73 m2) Terms G1 >=90 Normal or high G2 60-89 Mildly decreased* G3a 45-59 Mildly to moderately decreased G3b 30-44 Moderately to severely decreased G4 15-29 Severely decreased G5 <15 Kidney failure *Relative to young adult level. In the absence of evidence of kidney damage, neither GFR category G1 nor G2 fulfill the criteria for CKD. The CKD-EPI equation is validated in individuals 18 years of age and older. Currently the best equation for estimating glomerular filtration rate (GFR) from serum creatinine in children is the Bedside [place] equation. It is less accurate in patients with extremes of muscle mass, restriction of dietary protein, ingestion of creatine, extra-renal metabolism of creatinine, or treatment with medications that affect renal tubular creatinine secretion. Performed By: #### H GARYG, BMP3 #### [facility] [address] [place] [address] Glucose [Mass/Vol] 109 mg/dL High 70-100 [facility] Comment on above: Performed By: #### H EMOG, BMP3 #### [facility] [address] [place] [address] Urea nitrogen [Mass/Vol] 14 mg/dL Normal 7-20 [facility] Comment on above: Performed By: #### H EMOG, BMP3 #### [facility] [address] [place] [address] Chloride [Moles/Vol] 106 mmol/L Normal 98-107 [facility] Comment on above: Performed By: #### H EMOG, BMP3 #### [facility] [address] [place] [address] Potassium [Moles/Vol] 4.0 mmol/L Normal 3.5-5.1 [facility] [facility] Comment on above: Performed By: #### H EMOG, BMP3 #### [facility] [address] [place] [address] Sodium [Moles/Vol] 137 mmol/L Normal 135-145 [facility] Comment on above: Performed By: #### H EMOG, BMP3 #### [facility] [address] [place] [address] Anion gap [Moles/Vol] 6 mmol/L [place], [place] Calcium [Mass/Vol] 8.8 mg/dL 8.4 - 10. 4 mg/dL [place] Chloride [Moles/Vol] 106 mmol/L 98 - 10 7 mmol/L [place] CO2 [Moles/Vol] 25 mmol/L 22 - 30 mmol/L [place] Creatinine [Mass/Vol] 0.76 mg/dL 0.52 - 1.25 mg/dL [place] EGFR IF NonAfrican Vincentian >90.0 >60 mL/min [place] Comment on above: KDIGO guidelines pro vide the following GFR categories: Stage GFR(ml/min/1.73 m2) Terms G1 >=90 Normal or high G2 60-89 Mildly decreased* G3a 45-59 Mildly to moderately decreased G3b 30-44 Moderately to severely decreased G4 15-29 Severely decreased G5 <15 Kidney failure *Relative to young adult level. In the absence of evidence of kidney damage, neither GFR category G1 nor G2 fulfill the criteria for CKD. The CKD-EPI equation is validated in individuals 18 years of age and older. Currently the best equation for estimating glomerular filtration rate (GFR) from serum creatinine in children is the [place] equation. It is less accurate in patients with extremes of muscle mass, restriction of dietary protein, ingestion of creatine, extra-renal metabolism of creatinine, or treatment with medications that affect renal tubular creatinine secretion. GFR/1.73 sq M predicted among blacks MDRD (S/P/Bld) [Vol rate/Area] mL/min/{1.73_m2} >60 mL/min [place] Glucose [Mass/Vol] 109 mg/dL High 70 - 100 mg/dL [place] Interpretation and review of laboratory results Abnormal [place] Potassium [Moles/Vol] 4.0 mmol/L 3.5 - 5.1 mmol/L [place] Sodium [Moles/Vol] 137 mmol/L 135 - 145 mmol/L [place] Urea nitrogen [Mass/Vol] 14 mg/dL 7 - 20 mg/dL [place] Test Performed by [facility], [address] [place] [id number] [place] [address] CBCon 06-10-2020 Erythrocyte distribution width (RBC) [Ratio] 13.9 % 11.5 - 14.5 % [place] Hematocrit (Bld) [Volume fraction] 42.0 % 40 - 52 % [place] Hemoglobin (Bld) [Mass/Vol] 14.0 g/dL 13 - 18 g/dL [place] Interpretation and review of laboratory results Abnormal [place] MCH (RBC) [Entitic mass] 30.7 pg 26 - 34 pg [place] MCHC (RBC) [Mass/Vol] 33.4 % 32 - 36 % [place] MCV (RBC) [Entitic vol] 91.8 fL 80 - 98 fL [place] Platelet mean volume (Bld) [Entitic vol] 7.3 fL Low 7.4 - 10.4 fL [place] Platelets (Bld) [#/Vol] 294 10*3/uL 140 - 440 10*3/uL [place] RBC (Bld) [#/Vol] 4.57 10*6/uL 4.4 - 5.9 10*6/uL [place] WBC (Bld) [#/Vol] 7.1 10*3/uL 3.6 - 10.7 10*3/uL [place] Test Performed by [facility], [address] [place] [address] [place] Hemogramon 06-10-2020 Erythrocyte distribution width (RBC) [Ratio] 13.9 % Normal 11.5-14.5 [facility] Comment on above: Performed By: #### H NESTOR BMP3 #### [facility] [address] [place] [address] Hematocrit (Bld) [Volume fraction] 42.0 % Normal 40.0-52.0 [facility] Comment on above: Performed By: #### Steven BAEZ BMP3 #### [facility] [address] [place] [address] Hemoglobin (Bld) [Mass/Vol] 14.0 g/dL Normal 13.0-18.0 [facility] Comment on above: Performed By: #### Steven BAEZ BMP3 #### [facility] [address] [place] [address] MCH (RBC) [Entitic mass] 30.7 pg Normal 26.0-34.0 [facility] Comment on above: Performed By: #### H NESTOR BMP3 #### [facility] [address] [place] [address] MCHC (RBC) [Mass/Vol] 33.4 % Normal 32.0-36.0 [facility] Comment on above: Performed By: #### H NESTOR BMP3 #### [facility] [address] [place] [address] MCV (RBC) [Entitic vol] 91.8 fL Normal 80.0-98.0 [facility] Comment on above: Performed By: #### Steven BAEZ BMP3 #### [facility] [address] [place] [address] Platelet mean volume (Bld) [Entitic vol] 7.3 fL Low 7.4-10.4 [facility] Comment on above: Performed By: #### H GARYG, BMP3 #### [facility] [address] [place] [address] Platelets (Bld) [#/Vol] 294 10*3/uL Normal 140-440 [facility] Comment on above: Performed By: #### H GARYG, BMP3 #### [facility] [address] [place] [address] RBC (Bld) [#/Vol] 4.57 10*6/uL Normal 4.40-5.90 [facility] Comment on above: Performed By: #### H EMOG, BMP3 #### [facility] [address] [place] [address] WBC (Bld) [#/Vol] 7.1 10*3/uL Normal 3.6-10.7 [facility] Comment on above: Performed By: #### H EMOWolfgang, BMP3 #### [facility] [address] [place] [address] CR Wrist Complete 3 Views [facility] 05-23-2020 CR Wrist Complete 3 Views Left Patient Name: NASH FERGUSON Diagnostic Radiology Exam Date/Time 05/22/2020 10:40:00 EDT Exam CR Wrist Complete 3 Views Left Ordering Physician MD MACIEJ, DIVINA Serrano Accession Number [id number] CPT4 Codes 14793 () Reason For Exam psoriatic arthritis Report Clinical Information: Chronic left wrist pain and swelling. History of psoriatic arthritis. Left wrist: COMPARISON: Left hand, 10/27/2017. PA, oblique and lateral views demonstrate no evidence of acute fracture or dislocation. The carpal bones are in normal alignment. There is severe narrowing of the radiocarpal joint with [id number] which has progressed since the prior hand radiographs. 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 There is widening of the scapholunate joints suggesting disruption of the intrinsic ligament, present previously. There is narrowing of the first carpometacarpal joint without bone erosion. No other bone erosion or periosteal reaction is seen. There is generalized soft tissue prominence or swelling about the wrist. Impression: 1. 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 This is nonspecific and can be seen in association with inflammatory arthropathy but may also be seen in relation to internal derangement. 2. Widening of the scapholunate joint consistent with disruption of the intrinsic ligament present previously. 3. 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 4. Narrowing of the radiocarpal joint advanced from the prior examination 5. No other evidence to suggest inflammatory arthropathy. Report Dictated on Final Dictating Physician: MD CARDOSO HARLAN Signed Date and Time: 05/23/2020 4:06 pm Signed by: MD CARDOSO HARLAN Transcribed Date and Time: 05/23/2020 4:07 Normal [facility] Echocardiogram complete with bubble studyon 04-23-2020 Aortic valve area 2.95580 cm [facility] AV mean gradient 9 mmHg [facility] EF 66.4237 % [facility] Patient Info Name: NASH FERGUSON Age: 69 years : 1950 Gender: Male Ht: 190 cm Wt: 127 kg BSA: 2.63 m2 HR: 92 bpm BP: 128 / 84 mmHg Heart Rhythm: Sinus Rhythm Technical Quality: Fair Exam Date: 04/23/2020 3:25 PM Patient Status: Outpatient Geriatric Aide: Sil Welch, BOBO, RVT Exam Type: ECHOCARDIOGRAM COMPLETE W BUBBLE STUDY Study Info Indications G45.9 - Transient cerebral ischemic attack, unspecified Attending Physician: MARK ODELL Referring Physician: MARK ODELL ; [id number] BMI: 35.00 kg/m2 Summary 1. Left ventricular systolic function is normal with an ejection fraction by Biplane Method of Discs of 66 %. 2. Moderate left ventricular concentric hypertrophy. 3. Mild calcification of the aortic valve leaflets. 4. There is no aortic valve stenosis with a peak velocity of 2.2 m/s, mean gradient of 9 mmHg, and aortic valve area of 2.63 cm2. History/Risk Factors Dyslipidemia: Yes Diabetes Mellitus: Yes Tobacco Use: Never Cerebrovascular Disease: TIA History/Risk Factors sleep apnea. Procedure(s): Complete two-dimensional, color flow and Doppler transthoracic echocardiogram is performed. 9ml Saline agitated with 1ml air, injected IV push per Lab Protocol. Left Ventricle Left ventricular chamber dimension is normal. Left ventricular systolic function is normal with an ejection fraction by Biplane Method of Discs of 66 %. Normal left ventricular mass. Left ventricular segmental wall motion is normal. There is normal diastolic function. Moderate left ventricular concentric hypertrophy. Right Ventricle Right ventricular chamber dimension is normal. Right ventricular systolic function is normal. Left Atria Left atrial chamber dimension is normal. Right Atria Right atrial chamber dimension is normal. Aortic Valve The aortic valve is trileaflet. There is mild aortic valve sclerosis. There is no aortic valve stenosis with a peak velocity of 2.2 m/s, mean gradient of 9 mmHg, and aortic valve area of 2.63 cm2. There is no aortic valve regurgitation. Mild calcification of the aortic valve leaflets. Pulmonic Valve The pulmonic valve is normal. There is no pulmonic valve stenosis. There is trace pulmonic regurgitation. Mitral Valve The mitral valve has thickened leaflets. There is no mitral valve stenosis. There is no mitral valve regurgitation. Moderate mitral annular calcification. Tricuspid Valve The tricuspid valve leaflets are normal. There is no significant tricuspid valve stenosis. There is trace tricuspid valve regurgitation. There is no pulmonary hypertension, estimated right ventricle systolic pressure is 27 mmHg. Pericardium/Pleural The pericardium appears normal. There is no pericardial effusion. Inferior Vena Cava Normal inferior vena cava with >50% collapse upon inspiration consistent with normal right atrial pressure. Aorta The aortic measurements are indexed to age and body surface area. The aortic root is normal measuring 3.20 cm with an index of 1.22 cm/m2. The proximal ascending aorta is normal measuring 3.4 cm with an index of 1.29 cm/m2. Left Ventricular Outflow Tract ---- Name Value Normal ---- LVOT 2D ---- LVOT Diameter 2.20 cm LVOT Doppler ---- LVOT Peak Velocity 1.40 m/s LVOT Mean Gradient 4 mmHg LVOT VTI 31.40 cm LVOT VTI/AV VTI Ratio 0.69 LVOT Stroke Volume 119.30 ml Pulmonic Valve ---- Name Value Normal ---- PV Doppler ---- PV Peak Velocity 1.42 m/s PV Mean Gradient 4 mmHg PV VTI 31.50 cm Mitral Valve ---- Name Value Normal ---- MV Doppler ---- MV Peak Velocity 1.25 m/s MV Mean Gradient 3 mmHg MV VTI 30.70 cm MV Decel [place] 294.00 cm/s2 MV PHT 60 ms MV Area (PHT) 3.65 cm2 4.00-5.00 MV Area (Cont Eq VTI) 3.89 cm2 MV Area Index (Cont Eq VTI) 1.48 cm2/m2 MV Diastolic Function ---- MV E Peak Velocity 0.85 m/s MV A Peak Velocity 1.03 m/s MV E/A 0.83 MV Decel Time 208 ms MV Annular TDI ---- MV Septal e' Velocity 7.07 cm/s >=8.00 MV Septal a' Velocity 9.25 cm/s MV E/e' (Septal) 12.08 <=8.00 MV A/a' (Septal) 11.14 MV Lateral e' Velocity 9.25 cm/s >=10.00 MV Lateral a' Velocity 12.50 cm/s MV E/e' (Lateral) 9.23 <=8.00 MV A/a' (Lateral) 8.24 MV e' Average 8.16 MV a' Average 10.88 MV E/e' (Average) 10.66 MV A/a' (Average) 9.69 Tricuspid Valve ---- Name Value Normal ---- TV Regurgitation Doppler ---- TR Peak Velocity 2.47 m/s Estimated PAP/RSVP ---- RA Pressure 3 mmHg <=5 PA Systolic Pressure 27 mmHg <=36 RV Systolic Pressure 27 mmHg <36 Aorta ---- Name Value Normal ---- Ascending Aorta ---- Ao Root Diameter (2D) 3.20 cm 3.10-3.70 Ao Root Diam Index (2D) 1.22 cm/m2 1.50-1.90 Prox Asc Ao Diameter 3.4 cm 2.6-3.4 Prox Asc Ao Diameter Index 1.29 cm/m2 1.30-1.70 Aortic Valve ---- Name Value Normal ---- AV Doppler ---- AV Peak Velocity 2.2 m/s AV Mean Gradient 9 mmHg AV VTI 45.40 cm AV Area (Cont Eq VTI) 2.63 cm2 AV Area Index (Cont Eq VTI) 1 cm2/m2 AV Area (Cont Eq Thang) 2.40 cm2 AV Area Index (Cont Eq Thang) 1 cm2/m2 LVOT Vmax/AV Vmax 0.63 LVOT VTI/AV VTI Ratio 0.69 AV Regurgitation 2D ---- LVOT Area 3.80 cm2 Ventricles ---- Name Value Normal ---- LV Dimensions 2D/MM ---- IVS Diastolic Thickness (2D) 1.99 cm 0.60-1.00 LVID Diastole (2D) 4.02 cm 4.20-5.80 LVIW Diastolic Thickness (2D) 1.42 cm 0.60-1.00 LVID Systole (2D) 3.19 cm 2.50-4.00 LVOT Diameter 2.20 cm LV Mass (2D Cubed) 288 g 88-224 LV Mass Index (2D Cubed) 109 g/m2 49-115 Relative Wall Thickness (2D) 0.71 <=0.42 LV Fractional Shortening/Ejection Fraction 2D/MM ---- LV Fractional Shortening (2D) 21 % 25-43 LV EF (2D Teicholz) 43 % 52-72 LV Diastolic Volume (4C MOD) 94 ml LV Systolic Volume (4C MOD) 32 ml LV EF (4C MOD) 66 % LV Diastolic Volume (2C MOD) 83 ml LV Systolic Volume (2C MOD) 29 ml LV EF (2C MOD) 65 % LV Diastolic Volume (BP MOD) 91.20 ml 62.00-150.00 LV Diastolic Volume Index (BP MOD) 34.66 ml/m2 34.00-74.00 LV Systolic Volume (BP MOD) 30.60 ml 21.00-61.00 LV Systolic Volume Index (BP MOD) 11.63 ml/m2 11.00-31.00 LV EF (BP MOD) 66 % 55-70 LV Diastolic Length (4C) 8.19 cm LV Systolic Length (4C) 6.84 cm LV End Diastolic Volume (BP A-L) 95 ml LV End Systolic Volume (BP A-L) 30 ml LV EF (BP A-L) 68 % LV Stroke Volume (4C MOD) 62.40 ml LV SI (4C MOD) 0.02 l/m2 RV Dimensions 2D/MM ---- RV Basal Diastolic Dimension 4.51 cm 2.50-4.10 RV Mid-Cavity Diastolic Dimension 2.78 cm 1.90-3.50 TAPSE 2.48 cm >=1.70 RV Systolic Function ---- RV s' Velocity 0.17 m/s 0.10-0.19 Atria ---- Name Value Normal ---- LA Dimensions ---- LA Length (4C) 8.03 cm LA Area (2C) 25.25 cm2 LA Length (2C) 6.27 cm LA Volume (4C MOD) 103.00 ml LA Volume (2C MOD) 80.90 ml LA Volume (2C A-L) 86.43 ml LA Volume (BP MOD) 102.00 ml LA Volume Index (BP MOD) 38.76 ml/m2 16.00-34.00 RA Dimensions ---- RA Systolic Major [place] Length (4C) 5.79 cm <=5.30 RA Area (4C) 22.20 cm2 <=18.00 RA Area (4C) Index 8.44 cm2/m2 RA ESV (4C MOD) 69.10 ml 18.00-32.00 RA ESV Index (4C MOD) 26.26 ml/m2 <=32.00 Report Signatures Finalized by Viktor Gregory MD on 04/23/2020 04:45 PM [facility] Interface, Rad In [facility] Echopacs - 04/23/2020 4:46 PM EDT Patient Info Name: NASH FERGUSON Age: 69 years : 1950 Gender: Male Ht: 190 cm Wt: 127 kg BSA: 2.63 m2 HR: 92 bpm BP: 128 / 84 mmHg Heart Rhythm: Sinus Rhythm Technical Quality: Fair Exam Date: 04/23/2020 3:25 PM Patient Status: Outpatient Geriatric Aide: Sil Welch, BOBO, RVT Exam Type: ECHOCARDIOGRAM COMPLETE W BUBBLE STUDY Study Info Indications G45.9 - Transient cerebral ischemic attack, unspecified Attending Physician: MARK ODELL Referring Physician: MARK ODELL ; [id number] BMI: 35.00 kg/m2 Summary 1. Left ventricular systolic function is normal with an ejection fraction by Biplane Method of Discs of 66 %. 2. Moderate left ventricular concentric hypertrophy. 3. Mild calcification of the aortic valve leaflets. 4. There is no aortic valve stenosis with a peak velocity of 2.2 m/s, mean gradient of 9 mmHg, and aortic valve area of 2.63 cm2. History/Risk Factors Dyslipidemia: Yes Diabetes Mellitus: Yes Tobacco Use: Never Cerebrovascular Disease: TIA History/Risk Factors sleep apnea. Procedure(s): Complete two-dimensional, color flow and Doppler transthoracic echocardiogram is performed. 9ml Saline agitated with 1ml air, injected IV push per Lab Protocol. Left Ventricle Left ventricular chamber dimension is normal. Left ventricular systolic function is normal with an ejection fraction by Biplane Method of Discs of 66 %. Normal left ventricular mass. Left ventricular segmental wall motion is normal. There is normal diastolic function. Moderate left ventricular concentric hypertrophy. Right Ventricle Right ventricular chamber dimension is normal. Right ventricular systolic function is normal. Left Atria Left atrial chamber dimension is normal. Right Atria Right atrial chamber dimension is normal. Aortic Valve The aortic valve is trileaflet. There is mild aortic valve sclerosis. There is no aortic valve stenosis with a peak velocity of 2.2 m/s, mean gradient of 9 mmHg, and aortic valve area of 2.63 cm2. There is no aortic valve regurgitation. Mild calcification of the aortic valve leaflets. Pulmonic Valve The pulmonic valve is normal. There is no pulmonic valve stenosis. There is trace pulmonic regurgitation. Mitral Valve The mitral valve has thickened leaflets. There is no mitral valve stenosis. There is no mitral valve regurgitation. Moderate mitral annular calcification. Tricuspid Valve The tricuspid valve leaflets are normal. There is no significant tricuspid valve stenosis. There is trace tricuspid valve regurgitation. There is no pulmonary hypertension, estimated right ventricle systolic pressure is 27 mmHg. Pericardium/Pleural The pericardium appears normal. There is no pericardial effusion. Inferior Vena Cava Normal inferior vena cava with >50% collapse upon inspiration consistent with normal right atrial pressure. Aorta The aortic measurements are indexed to age and body surface area. The aortic root is normal measuring 3.20 cm with an index of 1.22 cm/m2. The proximal ascending aorta is normal measuring 3.4 cm with an index of 1.29 cm/m2. Left Ventricular Outflow Tract ---- Name Value Normal ---- LVOT 2D ---- LVOT Diameter 2.20 cm LVOT Doppler ---- LVOT Peak Velocity 1.40 m/s LVOT Mean Gradient 4 mmHg LVOT VTI 31.40 cm LVOT VTI/AV VTI Ratio 0.69 LVOT Stroke Volume 119.30 ml Pulmonic Valve ---- Name Value Normal ---- PV Doppler ---- PV Peak Velocity 1.42 m/s PV Mean Gradient 4 mmHg PV VTI 31.50 cm Mitral Valve ---- Name Value Normal ---- MV Doppler ---- MV Peak Velocity 1.25 m/s MV Mean Gradient 3 mmHg MV VTI 30.70 cm MV Decel [place] 294.00 cm/s2 MV PHT 60 ms MV Area (PHT) 3.65 cm2 4.00-5.00 MV Area (Cont Eq VTI) 3.89 cm2 MV Area Index (Cont Eq VTI) 1.48 cm2/m2 MV Diastolic Function ---- MV E Peak Velocity 0.85 m/s MV A Peak Velocity 1.03 m/s MV E/A 0.83 MV Decel Time 208 ms MV Annular TDI ---- MV Septal e' Velocity 7.07 cm/s >=8.00 MV Septal a' Velocity 9.25 cm/s MV E/e' (Septal) 12.08 <=8.00 MV A/a' (Septal) 11.14 MV Lateral e' Velocity 9.25 cm/s >=10.00 MV Lateral a' Velocity 12.50 cm/s MV E/e' (Lateral) 9.23 <=8.00 MV A/a' (Lateral) 8.24 MV e' Average 8.16 MV a' Average 10.88 MV E/e' (Average) 10.66 MV A/a' (Average) 9.69 Tricuspid Valve ---- Name Value Normal ---- TV Regurgitation Doppler ---- TR Peak Velocity 2.47 m/s Estimated PAP/RSVP ---- RA Pressure 3 mmHg <=5 PA Systolic Pressure 27 mmHg <=36 RV Systolic Pressure 27 mmHg <36 Aorta ---- Name Value Normal ---- Ascending Aorta ---- Ao Root Diameter (2D) 3.20 cm 3.10-3.70 Ao Root Diam Index (2D) 1.22 cm/m2 1.50-1.90 Prox Asc Ao Diameter 3.4 cm 2.6-3.4 Prox Asc Ao Diameter Index 1.29 cm/m2 1.30-1.70 Aortic Valve ---- Name Value Normal ---- AV Doppler ---- AV Peak Velocity 2.2 m/s AV Mean Gradient 9 mmHg AV VTI 45.40 cm AV Area (Cont Eq VTI) 2.63 cm2 AV Area Index (Cont Eq VTI) 1 cm2/m2 AV Area (Cont Eq Thang) 2.40 cm2 AV Area Index (Cont Eq Thang) 1 cm2/m2 LVOT Vmax/AV Vmax 0.63 LVOT VTI/AV VTI Ratio 0.69 AV Regurgitation 2D ---- LVOT Area 3.80 cm2 Ventricles ---- Name Value Normal ---- LV Dimensions 2D/MM ---- IVS Diastolic Thickness (2D) 1.99 cm 0.60-1.00 LVID Diastole (2D) 4.02 cm 4.20-5.80 LVIW Diastolic Thickness (2D) 1.42 cm 0.60-1.00 LVID Systole (2D) 3.19 cm 2.50-4.00 LVOT Diameter 2.20 cm LV Mass (2D Cubed) 288 g 88-224 LV Mass Index (2D Cubed) 109 g/m2 49-115 Relative Wall Thickness (2D) 0.71 <=0.42 LV Fractional Shortening/Ejection Fraction 2D/MM ---- LV Fractional Shortening (2D) 21 % 25-43 LV EF (2D Teicholz) 43 % 52-72 LV Diastolic Volume (4C MOD) 94 ml LV Systolic Volume (4C MOD) 32 ml LV EF (4C MOD) 66 % LV Diastolic Volume (2C MOD) 83 ml LV Systolic Volume (2C MOD) 29 ml LV EF (2C MOD) 65 % LV Diastolic Volume (BP MOD) 91.20 ml 62.00-150.00 LV Diastolic Volume Index (BP MOD) 34.66 ml/m2 34.00-74.00 LV Systolic Volume (BP MOD) 30.60 ml 21.00-61.00 LV Systolic Volume Index (BP MOD) 11.63 ml/m2 11.00-31.00 LV EF (BP MOD) 66 % 55-70 LV Diastolic Length (4C) 8.19 cm LV Systolic Length (4C) 6.84 cm LV End Diastolic Volume (BP A-L) 95 ml LV End Systolic Volume (BP A-L) 30 ml LV EF (BP A-L) 68 % LV Stroke Volume (4C MOD) 62.40 ml LV SI (4C MOD) 0.02 l/m2 RV Dimensions 2D/MM ---- RV Basal Diastolic Dimension 4.51 cm 2.50-4.10 RV Mid-Cavity Diastolic Dimension 2.78 cm 1.90-3.50 TAPSE 2.48 cm >=1.70 RV Systolic Function ---- RV s' Velocity 0.17 m/s 0.10-0.19 Atria ---- Name Value Normal ---- LA Dimensions ---- LA Length (4C) 8.03 cm LA Area (2C) 25.25 cm2 LA Length (2C) 6.27 cm LA Volume (4C MOD) 103.00 ml LA Volume (2C MOD) 80.90 ml LA Volume (2C A-L) 86.43 ml LA Volume (BP MOD) 102.00 ml LA Volume Index (BP MOD) 38.76 ml/m2 16.00-34.00 RA Dimensions ---- RA Systolic Major [place] Length (4C) 5.79 cm <=5.30 RA Area (4C) 22.20 cm2 <=18.00 RA Area (4C) Index 8.44 cm2/m2 RA ESV (4C MOD) 69.10 ml 18.00-32.00 RA ESV Index (4C MOD) 26.26 ml/m2 <=32.00 Report Signatures Finalized by Viktor Gregory MD on 04/23/2020 04:45 PM [facility] MRA BRAIN WITHOUT CONTRASTon 04-08-2020 MRA BRAIN WITHOUT CONTRAST EXAMINATION: MRA NECK WITH CONTRAST; MRA BRAIN WITHOUT CONTRAST HISTORY: ORDERING SYSTEM PROVIDED HISTORY: TGA, TECHNOLOGIST PROVIDED HISTORY: Illness/Other Reason for exam: Transient global amnesia episode in December Encounter Type: Subsequent/Follow-up Additional signs and symptoms: No CA or CVA ORDERING SYSTEM PROVIDED DIAGNOSIS CODES: G45.4 TGA (transient global amnesia) ; ORDERING SYSTEM PROVIDED HISTORY: TGA, TECHNOLOGIST PROVIDED HISTORY: Illness/Other Reason for exam: Transient global amnesia episode in December Encounter Type: Subsequent/Follow-up Additional signs and symptoms: No Hx of CA or CVA ORDERING SYSTEM PROVIDED DIAGNOSIS CODES: G45.4 TGA (transient global amnesia) COMPARISON: None TECHNIQUE: Neck MRA: 2-D and 3-D [id number] MR angiography were obtained through the neck and MIP images were created. Head MRA: 3-D [id number] MR angiography was performed through the major intracranial vessels and MIP images were created. Carotid stenosis is reported according to NASCET criteria. CONTRAST: GADOTERATE MEGLUMINE 0.5 MMOL/ML (376.9 MG/ML) INTRAVENOUS SOLUTION - 20 mL, FINDINGS: Neck MRA: Diagnostic Quality: Adequate. Aorta and Great Vessel Origins: Normal branching pattern Right Cervical Carotid System: Patent There is 0 % stenosis of the carotid bulb by the NASCET criteria. Left Cervical Carotid System: Patent There is 0 % stenosis of the carotid bulb by the NASCET criteria. Vertebral Arteries: Patent bilaterally without significant stenosis. The left side is the dominant. Other Findings: None. Head MRA: Diagnostic Quality: Adequate. Vertebrobasilar System: The distal intra-dural vertebral arteries are normal in appearance without significant stenosis. Carotid Arteries: The right internal carotid artery including the distal cervical, petrous, cavernous and supraclinoid segments are within normal limits with no apparent dissection, aneurysm or significant stenosis. The left internal carotid artery including the distal cervical, petrous, cavernous and supraclinoid segments are within normal limits with no apparent dissection, aneurysm or significant stenosis. [place] Ira of [place] and Major Peripheral Branches: The right ALMA DELIA and MCA as well as distal branches are within normal limits with no significant vascular stenosis, aneurysm or other vascular anomaly. The left ALMA DELIA and MCA as well as distal branches are within normal limits with no significant vascular stenosis, aneurysm or other vascular anomaly. The basilar artery, posterior cerebral arteries, superior cerebellar arteries, and posterior-inferior cerebellar arteries are within normal limits. Other Findings: None. IMPRESSION: 1. No significant carotid or vertebral artery stenosis in the neck. 2. No evidence of intracranial aneurysm, vascular malformation, significant stenosis or occlusion. Workstation ID: [id number] Dictated by: VIKA MONAHAN on TueApr 08, 2020 4:51:09 PM EDT Transcribed by: VIKA MONAHAN on TueApr 08, 2020 4:51:09 PM EDT Finalized by: VIKA MONAHAN on TueApr 08, 2020 4:51:09 PM EDT [facility] Comment on above: Order Comment: Injur y/Trauma or Illness?:Illness/Other How long have you had these symptoms (acute/chronic)?:Acute Reason for exam?:Transient global amnesia episode in December Type of Exam?:Subsequent/Follow-up Additional signs and symptoms?:No Hx of CA or CVA MRA NECK WITH CONTRASTon MRA NECK WITH CONTRAST EXAMINATION: MRA NECK WITH CONTRAST; MRA BRAIN WITHOUT CONTRAST HISTORY: ORDERING SYSTEM PROVIDED HISTORY: TGA, TECHNOLOGIST PROVIDED HISTORY: Illness/Other Reason for exam: Transient global amnesia episode in December Encounter Type: Subsequent/Follow-up Additional signs and symptoms: No CA or CVA ORDERING SYSTEM PROVIDED DIAGNOSIS CODES: G45.4 TGA (transient global amnesia) ; ORDERING SYSTEM PROVIDED HISTORY: TGA, TECHNOLOGIST PROVIDED HISTORY: Illness/Other Reason for exam: Transient global amnesia episode in December Encounter Type: Subsequent/Follow-up Additional signs and symptoms: No Hx of CA or CVA ORDERING SYSTEM PROVIDED DIAGNOSIS CODES: G45.4 TGA (transient global amnesia) COMPARISON: None TECHNIQUE: Neck MRA: 2-D and 3-D [id number] MR angiography were obtained through the neck and MIP images were created. Head MRA: 3-D [id number] MR angiography was performed through the major intracranial vessels and MIP images were created. Carotid stenosis is reported according to NASCET criteria. CONTRAST: GADOTERATE MEGLUMINE 0.5 MMOL/ML (376.9 MG/ML) INTRAVENOUS SOLUTION - 20 mL, FINDINGS: Neck MRA: Diagnostic Quality: Adequate. Aorta and Great Vessel Origins: Normal branching pattern Right Cervical Carotid System: Patent There is 0 % stenosis of the carotid bulb by the NASCET criteria. Left Cervical Carotid System: Patent There is 0 % stenosis of the carotid bulb by the NASCET criteria. Vertebral Arteries: Patent bilaterally without significant stenosis. The left side is the dominant. Other Findings: None. Head MRA: Diagnostic Quality: Adequate. Vertebrobasilar System: The distal intra-dural vertebral arteries are normal in appearance without significant stenosis. Carotid Arteries: The right internal carotid artery including the distal cervical, petrous, cavernous and supraclinoid segments are within normal limits with no apparent dissection, aneurysm or significant stenosis. The left internal carotid artery including the distal cervical, petrous, cavernous and supraclinoid segments are within normal limits with no apparent dissection, aneurysm or significant stenosis. Venetie Ira of Kwan and Major Peripheral Branches: The right ALMA DELIA and MCA as well as distal branches are within normal limits with no significant vascular stenosis, aneurysm or other vascular anomaly. The left ALMA DELIA and MCA as well as distal branches are within normal limits with no significant vascular stenosis, aneurysm or other vascular anomaly. The basilar artery, posterior cerebral arteries, superior cerebellar arteries, and posterior-inferior cerebellar arteries are within normal limits. Other Findings: None. IMPRESSION: 1. No significant carotid or vertebral artery stenosis in the neck. 2. No evidence of intracranial aneurysm, vascular malformation, significant stenosis or occlusion. Workstation ID: [id number] Dictated by: VIKA MONAHAN on TueApr 08, 2020 4:51:09 PM EDT Transcribed by: VIKA MONAHAN on TueApr 08, 2020 4:51:09 PM EDT Finalized by: VIKA MONAHAN on TueApr 08, 2020 4:51:09 PM EDT Normal [facility] Comment on above: Order Comment: Injur y/Trauma or Illness?:Illness/Other How long have you had these symptoms (acute/chronic)?:Acute Reason for exam?:Transient global amnesia episode in December Type of Exam?:Subsequent/Follow-up Additional signs and symptoms?:No CA or CVA Otheron 04-08-2020 1. No significant carotid or vertebral artery stenosis in the neck. 2. No evidence of intracranial aneurysm, vascular malformation, significant stenosis or occlusion. Workstation ID: [id number] [facility] EXAMINATION: MRA NECK WITH CONTRAST; MRA BRAIN WITHOUT CONTRAST HISTORY: ORDERING SYSTEM PROVIDED HISTORY: TGA, TECHNOLOGIST PROVIDED HISTORY: Illness/Other Reason for exam: Transient global amnesia episode in December Encounter Type: Subsequent/Follow-up Additional signs and symptoms: No CA or CVA ORDERING SYSTEM PROVIDED DIAGNOSIS CODES: G45.4 TGA (transient global amnesia) ; ORDERING SYSTEM PROVIDED HISTORY: TGA, TECHNOLOGIST PROVIDED HISTORY: Illness/Other Reason for exam: Transient global amnesia episode in December Encounter Type: Subsequent/Follow-up Additional signs and symptoms: No Hx of CA or CVA ORDERING SYSTEM PROVIDED DIAGNOSIS CODES: G45.4 TGA (transient global amnesia) COMPARISON: None TECHNIQUE: Neck MRA: 2-D and 3-D [id number] MR angiography were obtained through the neck and MIP images were created. Head MRA: 3-D [id number]-[id number] MR angiography was performed through the major intracranial vessels and MIP images were created. Carotid stenosis is reported according to NASCET criteria. CONTRAST: GADOTERATE MEGLUMINE 0.5 MMOL/ML (376.9 MG/ML) INTRAVENOUS SOLUTION - 20 mL, FINDINGS: Neck MRA: Diagnostic Quality: Adequate. Aorta and Great Vessel Origins: Normal branching pattern Right Cervical Carotid System: Patent There is 0 % stenosis of the carotid bulb by the NASCET criteria. Left Cervical Carotid System: Patent There is 0 % stenosis of the carotid bulb by the NASCET criteria. Vertebral Arteries: Patent bilaterally without significant stenosis. The left side is the dominant. Other Findings: None. Head MRA: Diagnostic Quality: Adequate. Vertebrobasilar System: The distal intra-dural vertebral arteries are normal in appearance without significant stenosis. Carotid Arteries: The right internal carotid artery including the distal cervical, petrous, cavernous and supraclinoid segments are within normal limits with no apparent dissection, aneurysm or significant stenosis. The left internal carotid artery including the distal cervical, petrous, cavernous and supraclinoid segments are within normal limits with no apparent dissection, aneurysm or significant stenosis. Venetie Ira of Kwan and Major Peripheral Branches: The right ALMA DELIA and MCA as well as distal branches are within normal limits with no significant vascular stenosis, aneurysm or other vascular anomaly. The left ALMA DELIA and MCA as well as distal branches are within normal limits with no significant vascular stenosis, aneurysm or other vascular anomaly. The basilar artery, posterior cerebral arteries, superior cerebellar arteries, and posterior-inferior cerebellar arteries are within normal limits. Other Findings: None. [facility], Rad In Fu ji Speechq - 04/08/2020 4:53 PM EDT EXAMINATION: MRA NECK WITH CONTRAST; MRA BRAIN WITHOUT CONTRAST HISTORY: ORDERING SYSTEM PROVIDED HISTORY: TGA, TECHNOLOGIST PROVIDED HISTORY: Illness/Other Reason for exam: Transient global amnesia episode in December Encounter Type: Subsequent/Follow-up Additional signs and symptoms: No CA or CVA ORDERING SYSTEM PROVIDED DIAGNOSIS CODES: G45.4 TGA (transient global amnesia) ; ORDERING SYSTEM PROVIDED HISTORY: TGA, TECHNOLOGIST PROVIDED HISTORY: Illness/Other Reason for exam: Transient global amnesia episode in December Encounter Type: Subsequent/Follow-up Additional signs and symptoms: No Hx of CA or CVA ORDERING SYSTEM PROVIDED DIAGNOSIS CODES: G45.4 TGA (transient global amnesia) COMPARISON: None TECHNIQUE: Neck MRA: 2-D and 3-D [id number] MR angiography were obtained through the neck and MIP images were created. Head MRA: 3-D [id number]-[id number] MR angiography was performed through the major intracranial vessels and MIP images were created. Carotid stenosis is reported according to NASCET criteria. CONTRAST: GADOTERATE MEGLUMINE 0.5 MMOL/ML (376.9 MG/ML) INTRAVENOUS SOLUTION - 20 mL, FINDINGS: Neck MRA: Diagnostic Quality: Adequate. Aorta and Great Vessel Origins: Normal branching pattern Right Cervical Carotid System: Patent There is 0 % stenosis of the carotid bulb by the NASCET criteria. Left Cervical Carotid System: Patent There is 0 % stenosis of the carotid bulb by the NASCET criteria. Vertebral Arteries: Patent bilaterally without significant stenosis. The left side is the dominant. Other Findings: None. Head MRA: Diagnostic Quality: Adequate. Vertebrobasilar System: The distal intra-dural vertebral arteries are normal in appearance without significant stenosis. Carotid Arteries: The right internal carotid artery including the distal cervical, petrous, cavernous and supraclinoid segments are within normal limits with no apparent dissection, aneurysm or significant stenosis. The left internal carotid artery including the distal cervical, petrous, cavernous and supraclinoid segments are within normal limits with no apparent dissection, aneurysm or significant stenosis. Venetie Ira of Kwan and Major Peripheral Branches: The right ALMA DELIA and MCA as well as distal branches are within normal limits with no significant vascular stenosis, aneurysm or other vascular anomaly. The left ALMA DELIA and MCA as well as distal branches are within normal limits with no significant vascular stenosis, aneurysm or other vascular anomaly. The basilar artery, posterior cerebral arteries, superior cerebellar arteries, and posterior-inferior cerebellar arteries are within normal limits. Other Findings: None. IMPRESSION: 1. No significant carotid or vertebral artery stenosis in the neck. 2. No evidence of intracranial aneurysm, vascular malformation, significant stenosis or occlusion. Workstation ID: [id number] [facility] POC Creatinineon 04-08-2020 Creatinine [Mass/Vol] 0.8 mg/dL 0.8 - 1.3 mg/dL [facility] Interpretation and review of laboratory results Normal [facility] POC Glycosylated Hemoglobin (Hb A1C)on 08-17-2018 Hemoglobin A1c/Hemoglobin.total mass fraction (Bld) 5.7 % 4 - 6 % [facility] Interpretation and review of laboratory results Abnormal [facility] ECG 12-LEADon 07-05-2018 Atrial Rate Invalid Interpretation Code [facility] P [place] Invalid Interpretation Code [facility] P-R Interval Invalid Interpretation Code [facility] Q-T Interval Invalid Interpretation Code [facility] Q-T Interval (corrected) Invalid Interpretation Code [facility] QRS Duration Invalid Interpretation Code [facility] QTC Calculation (Bezet) Invalid Interpretation Code [facility] R [place] Invalid Interpretation Code [facility] T [place] Invalid Interpretation Code [facility] Ventricular Rate Invalid Interpretation Code [facility] CBC and Differentialon 10-04 Basophils 0.0 K/mcL Invalid Interpretation Code 0 - 0.2 [facility] Basophils 0.3 % Invalid Interpretation Code [facility] Eosinophils 0.1 K/mcL Invalid Interpretation Code 0 - 0.5 [facility] Erythrocytes (RBC) 4.98 M/mcL Invalid Interpretation Code 4.0 - 5.5 [facility] Hematocrit (HCT) 45.2 % Normal 37.9-49.2 [facility] Comment on above: Performed By: #### C BCDIF, CMET, LIPID, HBA1C ####Unless otherwise noted, all testing performed by [address] [phone]: [id number] Director: Alexander Barone M.D. Hemoglobin (HGB) 14.8 g/dL Normal 12.9-16.9 [facility] Comment on above: Performed By: #### C BCDIF, CMET, LIPID, HBA1C ####Unless otherwise noted, all testing performed by [address] [phone]: [id number] Director: Alexander Barone M.D. Lymphocytes 1.0 K/mcL Invalid Interpretation Code 0.9 - 3.6 [facility] MCH 29.8 pg Normal 27.7-34.6 [facility] Comment on above: Performed By: #### C BCDIF, CMET, LIPID, HBA1C ####Unless otherwise noted, all testing performed by [address] [phone]: [id number] Director: Alexander Barone M.D. MCHC 32.7 g/dL Low 32.9-35.5 [facility] Comment on above: Performed By: #### C BCDIF, CMET, LIPID, HBA1C ####Unless otherwise noted, all testing performed by [address] [phone]: [id number] Director: Alexander Barone M.D. MCV 90.9 fL Normal 82.8-99.3 [facility] Comment on above: Performed By: #### C BCDIF, CMET, LIPID, HBA1C ####Unless otherwise noted, all testing performed by [address] [phone]: [id number] Director: Alexander Barone M.D. Monocytes 0.7 K/mcL High 0.2 - 0.6 [facility] Neutrophils 9.5 K/mcL High 1.4 - 6.8 [facility] Platelet mean volume (PMV) 8.3 fL Normal 6.6-10.8 [facility] Comment on above: Performed By: #### C BCDIF, CMET, LIPID, HBA1C ####Unless otherwise noted, all testing performed by [address] [phone]: [id number] Director: lAexander Barone M.D. Platelets 291 K/mcL Invalid Interpretation Code 139 - 354 [facility] RDW-CA 13.9 % Normal 10-14.3 [facility] Comment on above: Performed By: #### C BCDIF, CMET, LIPID, HBA1C ####Unless otherwise noted, all testing performed by [address] [phone]: [id number] Director: Alexander Barone M.D. Segmented Neut 84.7 % Invalid Interpretation Code [facility] T8 suppressor/100 cells 0.5 10*3/uL Invalid Interpretation Code [facility] T8 suppressor/100 cells 8.6 10*3/uL Invalid Interpretation Code [facility] T8 suppressor/100 cells 5.9 10*3/uL Invalid Interpretation Code [facility] WBC (Leukocytes) 11.2 K/mcL High 3.6 - 10.4 [facility] CBC with Diffon 10-04-2017 Basophils Auto #/vol (Bld) 0.0 K/mcL Normal 0-0.2 [facility] Comment on above: Performed By: #### C BCDIF, CMET, LIPID, HBA1C ####Unless otherwise noted, all testing performed by [address]CLIA: [id number] Director: Alexander Barone M.D. Basophils/100 WBC Auto (Bld) 0.3 % Normal [facility] Comment on above: Performed By: #### C BCDIF, CMET, LIPID, HBA1C ####Unless otherwise noted, all testing performed by [address]8509CLIA: [id number] Director: Alexander Barone M.D. Eosinophils 0.1 K/mcL Normal 0-0.5 [facility] Comment on above: Performed By: #### C BCDIF, CMET, LIPID, HBA1C ####Unless otherwise noted, all testing performed by [address]8[address]CLIA: [id number] Director: Alexander Barone M.D. Eosinophils/100 leukocytes 0.5 % Normal [facility] Comment on above: Performed By: #### C BCDIF, CMET, LIPID, HBA1C ####Unless otherwise noted, all testing performed by [address]8509CLIA: [id number] Director: Alexander Barone M.D. Erythrocytes (RBC) 4.98 M/mcL Normal 4.0-5.5 [facility] Comment on above: Performed By: #### C BCDIF, CMET, LIPID, HBA1C ####Unless otherwise noted, all testing performed by [address] [phone]: [id number] Director: Alexander Barone M.D. Lymphocytes 1.0 K/mcL Normal 0.9-3.6 [facility] Comment on above: Performed By: #### C BCDIF, CMET, LIPID, HBA1C ####Unless otherwise noted, all testing performed by [address] [phone]: [id number] Director: Alexander Barone M.D. Lymphocytes/100 leukocytes 8.6 % Normal [facility] Comment on above: Performed By: #### C BCDIF, CMET, LIPID, HBA1C ####Unless otherwise noted, all testing performed by [place] [phone]: [id number] Director: Alexander Barone M.D. Monocytes 0.7 K/mcL High 0.2-0.6 [facility] Comment on above: Performed By: #### C BCDIF, CMET, LIPID, HBA1C ####Unless otherwise noted, all testing performed by [place] [phone]: [id number] Director: Alexander Barone M.D. Monocytes/100 leukocytes 5.9 % Normal [facility] Comment on above: Performed By: #### C BCDIF, CMET, LIPID, HBA1C ####Unless otherwise noted, all testing performed by [address] [phone]: [id number] Director: Alexander Barone M.D. Neutrophils 9.5 K/mcL High 1.4-6.8 [facility] Comment on above: Performed By: #### C BCDIF, CMET, LIPID, HBA1C ####Unless otherwise noted, all testing performed by [address] [phone]: [id number] Director: Alexander Barone M.D. Platelets 291 K/mcL Normal 139-354 [facility] Comment on above: Performed By: #### C BCDIF, CMET, LIPID, HBA1C ####Unless otherwise noted, all testing performed by [address] [phone]: [id number] Director: Alexander Barone M.D. Segmented Neut % 84.7 % Normal [facility] Comment on above: Performed By: #### C BCDIF, CMET, LIPID, HBA1C ####Unless otherwise noted, all testing performed by [address] [phone]: [id number] Director: Alexander Barone M.D. WBC (Leukocytes) 11.2 K/mcL High 3.6-10.4 [facility] Comment on above: Performed By: #### C BCDIF, CMET, LIPID, HBA1C ####Unless otherwise noted, all testing performed by [address] [phone]: [id number] Director: Alexander Barone M.D. Comprehensive Metabolic [facility] 10-04-2017 Alanine aminotransferase (ALT) 24 U/L Normal 14-65 [facility] Comment on above: Result Comment: This test result might be falsely depressed or falsely elevated onsamples drawn from patients taking Sulfasalazine and Sulfapyridine.Venipuncture should occur prior to taking either of these drugs. Performed By: #### C BCDIF, CMET, LIPID, HBA1C ####Unless otherwise noted, all testing performed by [address] [phone]: [id number] Director: Alexander Barone M.D. Albumin 3.6 g/dL Normal 3.2-5.2 [facility] Comment on above: Performed By: #### C BCDIF, CMET, LIPID, HBA1C ####Unless otherwise noted, all testing performed by [place] [phone]: [id number] Director: Alexander Barone M.D. Alkaline phosphatase (ALP) 84 U/L Normal 40-150 [facility] Comment on above: Performed By: #### C BCDIF, CMET, LIPID, HBA1C ####Unless otherwise noted, all testing performed by [address] [phone]: [id number] Director: Alexander Barone M.D. Aspartate aminotransferase (AST) 14 U/L Normal 0-45 [facility] Comment on above: Result Comment: This test result might be falsely depressed or falsely elevated onsamples drawn from patients taking Sulfasalazine and Sulfapyridine.Venipuncture should occur prior to taking either of these drugs. Performed By: #### C BCDIF, CMET, LIPID, HBA1C ####Unless otherwise noted, all testing performed by [address] [phone]: [id number] Director: Alexander Barone M.D. Bilirubin (total) 0.6 mg/dL Normal 0.3-1.2 [facility] Comment on above: Performed By: #### C BCDIF, CMET, LIPID, HBA1C ####Unless otherwise noted, all testing performed by [place] [phone]: [id number] Director: Alexander Barone M.D. Calcium 8.5 mg/dL Normal 8.4-10.2 [facility] Comment on above: Performed By: #### C BCDIF, CMET, LIPID, HBA1C ####Unless otherwise noted, all testing performed by [place] [phone]: [id number] Director: Alexander Barone M.D. Chloride 107 mmol/L Normal 98-108 [facility] Comment on above: Performed By: #### C BCDIF, CMET, LIPID, HBA1C ####Unless otherwise noted, all testing performed by [phone]: [id number] Director: Alexander Barone M.D. CO2 26 mmol/L Normal 21-32 [facility] Comment on above: Performed By: #### C BCDIF, CMET, LIPID, HBA1C ####Unless otherwise noted, all testing performed by [address] [phone]: [id number] Director: Alexander Barone M.D. Creatinine 1.19 mg/dL Normal 0.80-1.30 [facility] Comment on above: Performed By: #### C BCDIF, CMET, LIPID, HBA1C ####Unless otherwise noted, all testing performed by [place] [phone]: [id number] Director: Alexander Barone M.D. eGFR (black) mL/min/{1.73_m2} Normal [facility] Comment on above: Result Comment: Afri can Vincentian GFR Calc Performed By: #### C BCDIF, CMET, LIPID, HBA1C ####Unless otherwise noted, all testing performed by [address] [phone]: [id number] Director: Alexander Barone M.D. eGFR (non-black) mL/min/{1.73_m2} Normal [facility] Comment on above: Result Comment: Non- GFR CalceGFR is an estimated Glomerular Filtration Rate based on the valueof the patient's serum creatinine. In outpatients, eGFR should be usedas a helpful tool in screening for CKD. In inpatients or patients withacute renal failure, eGFR represents the GFR at the moment of the drawand should be used with caution. Performed By: #### C BCDIF, CMET, LIPID, HBA1C ####Unless otherwise noted, all testing performed by [address] [phone]: [id number] Director: Alexander Barone M.D. Glucose 120 mg/dL High 70 - 99 mg/dL [facility] Glucose mass conc 120 mg/dL High 70-99 [facility] Comment on above: Result Comment: This test result might be falsely depressed or falsely elevated onsamples drawn from patients taking Sulfasalazine and Sulfapyridine.Venipuncture should occur prior to taking either of these drugs. Performed By: #### C BCDIF, CMET, LIPID, HBA1C ####Unless otherwise noted, all testing performed by [address] [facility]Port [facility], [place] [phone]: [id number] Director: Alexander Barone M.D. Interpretation and review of laboratory results Abnormal Invalid Interpretation Code [facility] Potassium 4.2 mmol/L Normal 3.5-5.1 [facility] Comment on above: Performed By: #### C BCDIF, CMET, LIPID, HBA1C ####Unless otherwise noted, all testing performed by [place] [phone]: [id number] Director: Alexander Barone M.D. Protein 7.2 g/dL Normal 6.0-8.0 [facility] Comment on above: Performed By: #### C BCDIF, CMET, LIPID, HBA1C ####Unless otherwise noted, all testing performed by [place] [phone]: [id number] Director: Alexander Barone M.D. Sodium 139 mmol/L Normal 135-145 [facility] Comment on above: Performed By: #### C BCDIF, CMET, LIPID, HBA1C ####Unless otherwise noted, all testing performed by [place] [phone]: [id number] Director: Alexander Barone M.D. Urea nitrogen 19 mg/dL Normal 8-25 [facility] Comment on above: Performed By: #### C BCDIF, CMET, LIPID, HBA1C ####Unless otherwise noted, all testing performed by [place] [phone]: [id number] Director: Alexander Barone M.D. Urine, bilirubin presence 0.6 mg/dL Invalid Interpretation Code 0.3 - 1.2 mg/dL [facility] Hemoglobin A1Con 10-04-2017 Hemoglobin A1c/Hemoglobin.total mass fraction (Bld) 6.2 % Normal 4.1-6.5 [facility] Comment on above: Performed By: #### C BCDIF, CMET, LIPID, HBA1C ####Unless otherwise noted, all testing performed by [address] [phone]: [id number] Director: Alexander Barone M.D. Lipid Panelon 10-04-2017 Cholesterol 176 mg/dL Normal 100-199 [facility] Comment on above: Performed By: #### C BCDIF, CMET, LIPID, HBA1C ####Unless otherwise noted, all testing performed by [address] [id number]: [id number] Director: Alexander Barone M.D. Cholesterol in VLDL mass conc 23 mg/dL Normal 5-40 [facility] Comment on above: Performed By: #### C BCDIF, CMET, LIPID, HBA1C ####Unless otherwise noted, all testing performed by [address] [id number]: [id number] Director: Alexander Barone M.D. Cholesterol to HDL Ratio 3.8 {ratio} Normal 3.2-5.0 [facility] Comment on above: Result Comment: Male Coronary Heart Disease Risk Factor (CHDRF):Average risk= 5.01/2 Average risk= 3.42 times Average risk= 9.6 Performed By: #### C BCDIF, CMET, LIPID, HBA1C ####Unless otherwise noted, all testing performed by [address] [id number]: [id number] Director: Alexander Lizabeth, M.D. HDL Cholesterol 46 mg/dL Normal 40-59 [facility] Comment on above: Performed By: #### C BCDIF, CMET, LIPID, HBA1C ####Unless otherwise noted, all testing performed by [address] [id number]: [id number] Director: Alexander Barone M.D. LDL Cholesterol 107 mg/dL Invalid Interpretation Code 10 - 150 mg/dL [facility] LDL Cholesterol 107 mg/dL Normal 10-150 [facility] Comment on above: Performed By: #### C BCDIF, CMET, LIPID, HBA1C ####Unless otherwise noted, all testing performed by [address] [id number]: [id number] Director: Alexander Barone M.D. Triglyceride 113 mg/dL Normal 25-120 [facility] Comment on above: Performed By: #### C BCDIF, CMET, LIPID, HBA1C ####Unless otherwise noted, all testing performed by [address] [id number]: [id number] Director: Alexander Barone M.D. VLDL 23 mg/dL Invalid Interpretation Code 5 - 40 mg/dL [facility] POC Microalbumin/Creatinine Ratioon 10-04-2017 Albumin 30 mg/dL Abnormal 0 - 20 mg/dL [facility] Interpretation and review of laboratory results Abnormal Invalid Interpretation Code [facility] POC Creatinine, Urine 300 mg/dL Invalid Interpretation Code 10 - 300 mg/dL [facility] POC Microalbumin/Creatin ine Ratio 30 1 Invalid Interpretation Code 0 - 30 [facility] POC Urinalysis Dipstickon Interpretation and review of laboratory results Abnormal Invalid Interpretation Code [facility] Urine, bilirubin presence Negative Invalid Interpretation Code Negative [facility] Urine, glucose presence Negative Invalid Interpretation Code Normal, Negative mg/dL [facility] Urine, hemoglobin presence Negative Invalid Interpretation Code Negative [facility] Urine, ketones presence Negative Invalid Interpretation Code Negative mg/dL [facility] Urine, leukocyte esterase presence Trace Abnormal Negative [facility] Urine, nitrite presence Negative Invalid Interpretation Code Negative [facility] Urine, pH 5.5 [pH] Invalid Interpretation Code 5.0 - 7.0 [facility] Urine, protein presence Negative Invalid Interpretation Code Negative mg/dL [facility] Urine, specific gravity 1.025 1 Invalid Interpretation Code 1.005 - 1.025 [facility] Urine, urobilinogen 0.2 mg/dL Invalid Interpretation Code <2.0, 0.2, Normal, Negative, 1.0, 2.0, <1.0 [facility] Hemoglobin A1Con 03-24-2017 Hemoglobin A1c/Hemoglobin.total mass fraction (Bld) 6.0 % Normal 4.1-6.5 [facility] Comment on above: Performed By: #### H EPCABS, HBA1C ####Unless otherwise noted, all testing performed by [address] [id number]: [id number] Director: Alexander Barone M.D. Hepatitis C Antibodyon 03-24 Hepatitis C Antibody Negative Normal Negative [facility] Comment on above: Result Comment: Test performed using [employer] Immunodiagnostic system.Test Performed by [facility] [id number] [place] [address] Performed By: #### H EPCABS, HBA1C ####Unless otherwise noted, all testing performed by [address] [id number]: [id number] Director: Alexander Barone M.D. Vital Signs Date Time Vital Sign Value Performing Clinician Facility 05-13-2025 07:39-0400 Body mass index (BMI) [Ratio] 31.8 kg/m2 Dr. Topher Poe MD Work Phone: [facility] 05-13-2025 07:39-0400 Body weight 118.[address] Topher Poe MD Work Phone: [facility] 05-13-2025 07:39-0400 Diastolic blood pressure 73 mm[Hg] Dr. Topher Poe MD Work Phone: [facility] 05-13-2025 07:39-0400 Heart rate 97 /min Dr. Topher Poe MD Work Phone: [facility] 05-13-2025 07:39-0400 Respiratory rate 18 /min Dr. Topher Poe MD Work Phone: [facility] 05-13-2025 07:39-0400 SaO2% (BldA) [Mass fraction] 95 % Dr. Topher Poe MD Work Phone: [facility] 05-13-2025 07:39-0400 Systolic blood pressure 134 mm[Hg] Dr. Topher Poe MD Work Phone: [facility] 05-08-2025 09:05-0400 Body height 193.[address] Topher Poe MD Work Phone: [facility] 05-08-2025 09:05-0400 Body mass index (BMI) [Ratio] 31.7 kg/m2 Dr. Topher Poe MD Work Phone: [facility] 05-08-2025 09:05-0400 Body temperature 97.5 [degF] Dr. Topher Poe MD Work Phone: [facility] 05-08-2025 09:05-0400 Body weight 118.[address] Topher Poe MD Work Phone: [facility] 05-08-2025 09:05-0400 Diastolic blood pressure 73 mm[Hg] Dr. Topher Poe MD Work Phone: [facility] 05-08-2025 09:05-0400 Heart rate 83 /min Dr. Topher Poe MD Work Phone: [facility] 05-08-2025 09:05-0400 Respiratory rate 16 /min Dr. Topher Poe MD Work Phone: [facility] 05-08-2025 09:05-0400 SaO2% (BldA) [Mass fraction] 100 % Dr. Topher Poe MD Work Phone: [facility] 05-08-2025 09:05-0400 Systolic blood pressure 120 mm[Hg] Dr. Topher Poe MD Work Phone: [facility] 04-13-2025 00:56-0400 Body temperature 97.9 [degF] Andrés Stack MD Work Phone: [facility] 04-13-2025 00:56-0400 Diastolic blood pressure 65 mm[Hg] Andrés Stack MD Work Phone: [facility] 04-13-2025 00:56-0400 Heart rate 83 /min Andrés Satck MD Work Phone: [facility] 04-13-2025 00:56-0400 Respiratory rate 18 /min Andrés Stack MD Work Phone: [facility] 04-13-2025 00:56-0400 SaO2% (BldA) [Mass fraction] 96 % Andrés Stack MD Work Phone: [facility] 04-13-2025 00:56-0400 Systolic blood pressure 104 mm[Hg] Andrés Stack MD Work Phone: [facility] 04-12-2025 17:33-0400 Heart rate 83 /min Andrés Stack MD Work Phone: [facility] 04-12-2025 00:40-0400 Body height 193 cm [facility]-12-[facility]25 00:40-0400 Body mass index (BMI) [Ratio] 31.91 kg/m2 [facility] 04-12-2025 00:40-0400 Body weight 118.9 kg Andrés Stack MD Work Phone: [facility] 12-18-2024 15:36-0400 Body height 193.04 cm Josefina Zavaleta SENIOR ACCOUNTS PAYABLE CLERK-C Work Phone: [facility] 12-18-2024 15:36-0400 Body mass index (BMI) [Ratio] 33.3 kg/m2 Josefina Ganner SENIOR ACCOUNTS PAYABLE CLERK-C Work Phone: [facility] 12-18-2024 15:36-0400 Body weight 124.28 kg Josefina Ganner SENIOR ACCOUNTS PAYABLE CLERK-C Work Phone: [facility] 12-18-2024 15:36-0400 Diastolic blood pressure 71 mm[Hg] Josefina Zavaleta SENIOR ACCOUNTS PAYABLE CLERK-C Work Phone: [facility] 12-18-2024 15:36-0400 Heart rate 79 /min Josefina Zavaleta SENIOR ACCOUNTS PAYABLE CLERK-C Work Phone: [facility] 12-18-2024 15:36-0400 Respiratory rate 16 /min Josefina Ganner SENIOR ACCOUNTS PAYABLE CLERK-C Work Phone: [facility] 12-18-2024 15:36-0400 Systolic blood pressure 129 mm[Hg] Josefina Zavaleta SENIOR ACCOUNTS PAYABLE CLERK-C Work Phone: [facility] 11-05-2024 08:30-0400 Body height 193.04 cm Josefina Ganner SENIOR ACCOUNTS PAYABLE CLERK-C Work Phone: [facility] 11-05-2024 08:30-0400 Body mass index (BMI) [Ratio] 33.3 kg/m2 Josefina Ganner SENIOR ACCOUNTS PAYABLE CLERK-C Work Phone: [facility] 11-05-2024 08:30-0400 Body temperature 96.5 [degF] Josefina Zavaleta SENIOR ACCOUNTS PAYABLE CLERK-C Work Phone: [facility] 11-05-2024 08:30-0400 Body weight 124.28 kg Josefina Zavaleta SENIOR ACCOUNTS PAYABLE CLERK-C Work Phone: [facility] 11-05-2024 08:30-0400 Diastolic blood pressure 79 mm[Hg] Josefina Zavaleta SENIOR ACCOUNTS PAYABLE CLERK-C Work Phone: [facility] 11-05-2024 08:30-0400 Heart rate 64 /min Josefina Zavaleta SENIOR ACCOUNTS PAYABLE CLERK-C Work Phone: [facility] 11-05-2024 08:30-0400 Respiratory rate 16 /min Josefina Zavaleta SENIOR ACCOUNTS PAYABLE CLERK-C Work Phone: [facility] 11-05-2024 08:30-0400 SaO2% (BldA) [Mass fraction] 94 % Josefina Zavaleta SENIOR ACCOUNTS PAYABLE CLERK-C Work Phone: [facility] 11-05-2024 08:30-0400 Systolic blood pressure 130 mm[Hg] Josefina Zavaleta SENIOR ACCOUNTS PAYABLE CLERK-C Work Phone: [facility] 07-27-2023 08:55-0500 Body height 193.04 cm SENIOR ACCOUNTS PAYABLE CLERK-C Josefina Zavaleta SENIOR ACCOUNTS PAYABLE CLERK Work Phone: [facility] 07-27-2023 08:55-0500 Body mass index (BMI) [Ratio] 33.2 kg/m2 SENIOR ACCOUNTS PAYABLE CLERK-C Josefina Zavaleta SENIOR ACCOUNTS PAYABLE CLERK Work Phone: [facility] 07-27-2023 08:55-0500 Body temperature 97.2 [degF] SENIOR ACCOUNTS PAYABLE CLERK-C Josefina Zavaleta SENIOR ACCOUNTS PAYABLE CLERK Work Phone: [facility] 07-27-2023 08:55-0500 Body weight 123.83 kg SENIOR ACCOUNTS PAYABLE CLERK-C Josefina Zavaleta SENIOR ACCOUNTS PAYABLE CLERK Work Phone: [facility] 07-27-2023 08:55-0500 Diastolic blood pressure 83 mm[Hg] SENIOR ACCOUNTS PAYABLE CLERK-C Josefina Zavaleta SENIOR ACCOUNTS PAYABLE CLERK Work Phone: [facility] 07-27-2023 08:55-0500 Heart rate 80 /min SENIOR ACCOUNTS PAYABLE CLERK-C Josefina Zavaleta SENIOR ACCOUNTS PAYABLE CLERK Work Phone: [facility] 07-27-2023 08:55-0500 Respiratory rate 18 /min SENIOR ACCOUNTS PAYABLE CLERK-C Josefina Zavaleta SENIOR ACCOUNTS PAYABLE CLERK Work Phone: [facility] 07-27-2023 08:55-0500 SaO2% (BldA) [Mass fraction] 98 % SENIOR ACCOUNTS PAYABLE CLERK-Wan Zavaleta SENIOR ACCOUNTS PAYABLE CLERK Work Phone: [facility] 07-27-2023 08:55-0500 Systolic blood pressure 139 mm[Hg] SENIOR ACCOUNTS PAYABLE CLERKMary Ellen Zavaleta SENIOR ACCOUNTS PAYABLE CLERK Work Phone: [facility] 10-27-2022 15:57-0400 Body weight 125.[address] Matt Hernandez Work Phone: [facility] 10-27-2022 15:57-0400 Diastolic blood pressure 66 mm[Hg] Dr. Matt Hernandez Work Phone: [facility] 10-27-2022 15:57-0400 Heart rate 92 /min Dr. Matt Hernandez Work Phone: [facility] 10-27-2022 15:57-0400 Respiratory rate 16 /min Dr. Matt Hernandez Work Phone: [facility] 10-27-2022 15:57-0400 Systolic blood pressure 136 mm[Hg] Dr. Matt Hernandez Work Phone: [facility] 10-27-2022 12:47-0400 Body height 190.[address] Matt Hernandez Work Phone: [facility] 02-22-2022 11:38-0400 Body mass index (BMI) [Ratio] 34.04 kg/m2 Marta Solorio Work Phone: [facility] Work Phone: 02-22-2022 11:38-0400 Body surface area Derived from formula 2.5 m2 Marta Solorio Work Phone: [facility] Work Phone: 02-22-2022 11:38-0400 Body weight 123.55 kg Marta Solorio Work Phone: [facility] Work Phone: 02-22-2022 11:38-0400 Diastolic blood pressure 92 mm[Hg] Marta Solorio Work Phone: [facility] Work Phone: 02-22-2022 11:38-0400 Heart rate 98 /min Marta Solorio Work Phone: [facility] Work Phone: 02-22-2022 11:38-0400 Systolic blood pressure 130 mm[Hg] Marta Solorio Work Phone: [facility] Work Phone: 01-27-2022 15:00-0400 Body height 190.5 cm Marta Solorio Work Phone: [facility] 232 DO Work Phone: 01-27-2022 15:00-0400 Body mass index (BMI) [Ratio] 34.44 kg/m2 Marta Solorio Work Phone: [facility] 232 DO Work Phone: 01-27-2022 15:00-0400 Body surface area Derived from formula 2.51 m2 Marta Solorio Work Phone: [facility] 232 DO Work Phone: 01-27-2022 15:00-0400 Body weight 124.97 kg Marta Solorio Work Phone: [facility] 232 DO Work Phone: 01-27-2022 15:00-0400 Diastolic blood pressure 78 mm[Hg] Marta Solorio Work Phone: [facility] 232 DO Work Phone: 01-27-2022 15:00-0400 Heart rate 110 /min Marta Solorio Work Phone: [facility] 232 DO Work Phone: 01-27-2022 15:00-0400 Systolic blood pressure 106 mm[Hg] Marta Solorio Work Phone: [facility] 232 DO Work Phone: 07-01-2021 13:51-0500 Body height 190.5 cm Mark Odell MD Work Phone: [facility] 07-01-2021 13:51-0500 Body mass index (BMI) [Ratio] 34.25 kg/m2 Mark Odell MD Work Phone: [facility] 07-01-2021 13:51-0500 Body weight 124.29 kg Mark Odell MD Work Phone: [facility] 07-01-2021 13:51-0500 Diastolic blood pressure 72 mm[Hg] Mark Odell MD Work Phone: [facility] 07-01-2021 13:51-0500 Heart rate 84 /min Mark Odell MD Work Phone: [facility] 07-01-2021 13:51-0500 SaO2% (BldA) [Mass fraction] 98 % Mark Odell MD Work Phone: [facility] 07-01-2021 13:51-0500 Systolic blood pressure 122 mm[Hg] Mark Odell MD Work Phone: [facility] 09-10-2020 14:13-0500 BMI (Body Mass Index) 35.5 kg/m2 Mark Odell [facility] 09-10-2020 14:13-0500 Body weight 128.82 kg Mark Odell [facility] 09-10-2020 14:13-0500 BP Diastolic 78 mm[Hg] Mark Odell [facility] 09-10-2020 14:13-0500 BP Systolic 128 mm[Hg] Mark Odell [facility] 09-10-2020 14:13-0500 Height 190.5 cm Mark Odell [facility] 09-10-2020 14:13-0500 Pulse (Heart Rate) 95 /min Mark Odell [facility] 09-10-2020 14:13-0500 Pulse Oximetry 96 % Mark Odell [facility] 06-17-2020 10:46-0500 BP Diastolic 78 mm[Hg] Divina Borjas [facility] [place] 06-17-2020 10:46-0500 BP Systolic 126 mm[Hg] Divina Borjas [facility] [place] 06-17-2020 10:46-0500 Pulse (Heart Rate) 80 /min Divina Borjas [facility] [place] 06-17-2020 10:46-0500 Respiratory Rate 18 /min [facility] [place] 06-17-2020 10:32-0500 Pulse Oximetry 95 % Divina Borjas [facility] [place] 06-17-2020 10:22-0500 Body Temperature 97.3 [degF] Divina Borjas [facility] , [place] 06-17-2020 06:37-0500 BMI (Body Mass Index) 34.87 kg/m2 Divina Borjas [facility] [place] 06-17-2020 06:37-0500 Body weight 126.55 kg Divina Borjas [facility] [place] 06-17-2020 06:37-0500 Height 190.5 cm Divina Borjas [facility] [place] 06-10-2020 13:21-0500 Body Temperature 95.7 [degF] Divina Borjas [facility] [place] 06-10-2020 13:21-0500 BP Diastolic 72 mm[Hg] [facility] [place] 06-10-2020 13:21-0500 BP Systolic 123 mm[Hg] Divina Borjas [facility] [place] 06-10-2020 13:21-0500 Pulse (Heart Rate) 90 /min Divina Borjas [facility] [place] 06-10-2020 13:21-0500 Pulse Oximetry 97 % Divina Borjas [facility] [place] 06-10-2020 13:20-0500 BMI (Body Mass Index) 34.75 kg/m2 Divina Borjas [facility] [place] 06-10-2020 13:20-0500 Body weight 126.1 kg [facility] [place] 06-10-2020 13:20-0500 Height 190.5 cm [facility] [place] 06-10-2020 13:20-0500 Respiratory Rate 16 /min Divina Borjas [place] 03-11-2020 11:32-0400 BMI (Body Mass Index) 34.2 kg/m2 Isai Page [facility] 03-11-2020 11:32-0400 Body weight 127.46 kg Isai Page [facility] 03-11-2020 11:32-0400 BP Diastolic 84 mm[Hg] Isaivj Page [facility] 03-11-2020 11:32-0400 BP Systolic 128 mm[Hg] Isai Page [facility] 03-11-2020 11:32-0400 Height 193 cm Isaivj Page [facility] 03-11-2020 11:32-0400 Pulse (Heart Rate) 105 /min Isaivj Page [facility] 02-06-2020 10:44-0400 BMI (Body Mass Index) 34.22 kg/m2 [facility] 02-06-2020 10:44-0400 Body weight 127.51 kg [facility] 02-06-2020 10:44-0400 BP Diastolic 82 mm[Hg] [facility] 02-06-2020 10:44-0400 BP Systolic 130 mm[Hg] [facility] 02-06-2020 10:44-0400 Height 193 cm [facility] 02-06-2020 10:44-0400 Pulse (Heart Rate) 81 /min [facility] 02-06-2020 10:44-0400 Pulse Oximetry 97 % [facility] 12-06-2018 12:43-0400 BMI (Body Mass Index) 33.74 kg/m2 [facility] 12-06-2018 12:43-0400 BP Diastolic 77 mm[Hg] [facility] 12-06-2018 12:43-0400 BP Systolic 128 mm[Hg] [facility] 12-06-2018 12:43-0400 Height 190.5 cm [facility] 12-06-2018 12:43-0400 Pulse (Heart Rate) 81 /min Mark Odell [facility] 12-06-2018 12:43-0400 Pulse Oximetry 97 % Mark [facility] 12-06-2018 12:43-0400 Weight 122.43 kg Mark [facility] 11-17-2018 11:03-0400 BMI (Body Mass Index) 33.62 kg/m2 [facility] 11-17-2018 11:03-0400 Body Temperature 98.4 [degF] [facility] 11-17-2018 11:03-0400 BP Diastolic 78 mm[Hg] [facility] 11-17-2018 11:03-0400 BP Systolic 121 mm[Hg] [facility] 11-17-2018 11:03-0400 Height 190.5 cm [facility] 11-17-2018 11:03-0400 Pulse (Heart Rate) 84 /min [facility] 11-17-2018 11:03-0400 Pulse Oximetry 98 % [facility] 11-17-2018 11:03-0400 Respiratory Rate 18 /min [facility] 11-17-2018 11:03-0400 Weight 122.02 kg [facility] 09-14-2018 10:20-0500 BMI (Body Mass Index) 32.87 kg/m2 [facility] 09-14-2018 10:20-0500 BP Diastolic 68 mm[Hg] [facility] 09-14-2018 10:20-0500 BP Systolic 118 mm[Hg] [facility] 09-14-2018 10:20-0500 Height 190.5 cm [facility] 09-14-2018 10:20-0500 Pulse (Heart Rate) 80 /min [facility] 09-14-2018 10:20-0500 Pulse Oximetry 98 % [facility] 09-14-2018 10:20-0500 Respiratory Rate 16 /min [facility] 09-14-2018 10:20-0500 Weight 119.3 kg [facility] 08-17-2018 09:58-0500 BMI (Body Mass Index) 32.5 kg/m2 [facility] 08-17-2018 09:58-0500 Body Temperature 98.71 [degF] [facility] 08-17-2018 09:58-0500 BP Diastolic 71 mm[Hg] [facility] 08-17-2018 09:58-0500 BP Systolic 116 mm[Hg] [facility] 08-17-2018 09:58-0500 Height 190.5 cm [facility] 08-17-2018 09:58-0500 Pulse (Heart Rate) 88 /min [facility] 08-17-2018 09:58-0500 Pulse Oximetry 97 % [facility] 08-17-2018 09:58-0500 Respiratory Rate 16 /min [facility] 08-17-2018 09:58-0500 Weight 117.94 kg [facility] 07-05-2018 11:45-0500 BMI (Body Mass Index) 33.05 kg/m2 [facility] 07-05-2018 11:45-0500 BP Diastolic 71 mm[Hg] [facility] 07-05-2018 11:45-0500 BP Systolic 130 mm[Hg] [facility] 07-05-2018 11:45-0500 Height 190.5 cm [facility] 07-05-2018 11:45-0500 Pulse (Heart Rate) 95 /min [facility] 07-05-2018 11:45-0500 Pulse Oximetry 97 % [facility] 07-05-2018 11:45-0500 Weight 119.93 kg [facility] 12-28-2017 11:36-0400 BMI (Body Mass Index) 33.49 kg/m2 [facility] 12-28-2017 11:36-0400 Body Temperature 98.2 [degF] [facility] 12-28-2017 11:36-0400 BP Diastolic 63 mm[Hg] [facility] 12-28-2017 11:36-0400 BP Systolic 118 mm[Hg] [facility] 12-28-2017 11:36-0400 Height 190.5 cm [facility] 12-28-2017 11:36-0400 Pulse (Heart Rate) 77 /min [facility] 12-28-2017 11:36-0400 Pulse Oximetry 98 % [facility] 12-28-2017 11:36-0400 Respiratory Rate 16 /min [facility] 12-28-2017 11:36-0400 Weight 121.52 kg [facility] 10-04-2017 12:05-0500 BMI (Body Mass Index) 34.84 kg/m2 [facility] 10-04-2017 12:05-0500 Body Temperature 98.29 [degF] [facility] 10-04-2017 12:05-0500 BP Diastolic 87 mm[Hg] [facility] 10-04-2017 12:05-0500 BP Systolic 125 mm[Hg] [facility] 10-04-2017 12:05-0500 Height 190.5 cm [facility] 10-04-2017 12:05-0500 Pulse (Heart Rate) 83 /min [facility] 10-04-2017 12:05-0500 Pulse Oximetry 97 % [facility] 10-04-2017 12:05-0500 Respiratory Rate 16 /min [facility] 10-04-2017 12:05-0500 Weight 126.42 kg [facility] 09-15-2017 11:28-0500 BMI (Body Mass Index) 34.99 kg/m2 [facility] 09-15-2017 11:28-0500 Body Temperature 98.29 [degF] [facility] 09-15-2017 11:28-0500 BP Diastolic 64 mm[Hg] [facility] 09-15-2017 11:28-0500 BP Systolic 118 mm[Hg] [facility] 09-15-2017 11:28-0500 Height 190.5 cm [facility] 09-15-2017 11:28-0500 Pulse (Heart Rate) 75 /min [facility] 09-15-2017 11:28-0500 Pulse Oximetry 97 % [facility] 09-15-2017 11:28-0500 Respiratory Rate 16 /min [facility] 09-15-2017 11:28-0500 Weight 126.96 kg [facility] 06-21-2017 11:47-0500 BMI (Body Mass Index) 34.62 kg/m2 [facility] Work Phone: 06-21-2017 11:47-0500 Body Temperature 98.4 [degF] Matt AugustinPlink Work Phone: 06-21-2017 11:47-0500 BP Diastolic 79 mm[Hg] Matt Augustin[facility]ink Work Phone: 06-21-2017 11:47-0500 BP Systolic 122 mm[Hg] Matt Augustin[facility]ink Work Phone: 06-21-2017 11:47-0500 Height 190.5 cm Matt Augustin[facility]ink Work Phone: 06-21-2017 11:47-0500 Pulse (Heart Rate) 73 /min Matt Augustin[facility]ink Work Phone: 06-21-2017 11:47-0500 Pulse Oximetry 97 % Matt AugustinPlink Work Phone: 06-21-2017 11:47-0500 Respiratory Rate 16 /min Matt Augustin[facility]ink Work Phone: 06-21-2017 11:47-0500 Weight 125.65 kg Matt Augustin[facility]ink Work Phone: 03-24-2017 09:59-0400 BMI (Body Mass Index) 34.25 kg/m2 Matt Augustin[facility]ink Work Phone: 03-24-2017 09:59-0400 Body Temperature 98.49 [degF] Matt Augustin[facility]ink Work Phone: 03-24-2017 09:59-0400 BP Diastolic 79 mm[Hg] Matt Augustin[facility]ink Work Phone: 03-24-2017 09:59-0400 BP Systolic 124 mm[Hg] Matt AugustinPlink Work Phone: 03-24-2017 09:59-0400 Height 190.5 cm Matt Hernandez [facility] Work Phone: 03-24-2017 09:59-0400 Pulse (Heart Rate) 76 /min Matt Hernandez [facility] Work Phone: 03-24-2017 09:59-0400 Pulse Oximetry 99 % Matt Hernandez [facility] Work Phone: 03-24-2017 09:59-0400 Respiratory Rate 16 /min Matt Hernandez [facility] Work Phone: 03-24-2017 09:59-0400 Weight 124.29 kg Matt Hernandez [facility] Work Phone: Encounters Encounter Date Encounter Type Care Provider Facility Start: 06-06-2025 ambulatory Josefina taylor SENIOR ACCOUNTS PAYABLE CLERK Facility:[facility] Start: 05-14-2025 End: 05-14-2025 Patient encounter procedure Jeremy Frias SENIOR ACCOUNTS PAYABLE CLERK-C -[facility] Work Phone: Start: 05-13-2025 End: 05-13-2025 Patient encounter procedure Matt Rodriguez SENIOR ACCOUNTS PAYABLE CLERK-C -[facility] Work Phone: Start: 05-13-2025 End: 05-14-[address] Topher Poe MD Work Phone: -[facility] Start: 05-08-2025 End: 05-08-2025 Patient encounter procedure Jeremy Frias SENIOR ACCOUNTS PAYABLE CLERK-C -[facility] Work Phone: Start: 05-08-2025 End: 05-08-[address] Topher Poe MD Work Phone: -[facility] Start: 05-07-[address] Abby Alonso DO -Occupational Therapy Work Phone: Start: 05-01-2025 ambulatory Josefina taylor SENIOR ACCOUNTS PAYABLE CLERK Facility:[facility] Start: 05-01-[address] 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 Topher Poe MD -[facility] Work Phone: Start: 12-18-2024 End: 12-18-2024 ambulatory Josefina Zavaleta SENIOR ACCOUNTS PAYABLE CLERK-C Work Phone: [facility] Work Phone: Start: 12-15-2024 End: 12-15-2024 ambulatory JOSEFINA ZAVALETA APRN-SENIOR CONTROLS ANALYST Facility:[facility] Start: 12-15-2024 End: 12-15-2024 Patient encounter procedure JOSEFINA ZAVALETA APRN-SENIOR CONTROLS ANALYST [facility] Start: 11-06-2024 End: 11-06-2024 ambulatory Josefina Zavaleta SENIOR ACCOUNTS PAYABLE CLERK-C Work Phone: [facility] Work Phone: Start: 11-06-2024 End: 11-06-2024 Patient encounter procedure Sarah ROMO -Sleep Lab Work Phone: Start: 11-05-2024 End: 11-05-2024 Patient encounter procedure Sarah ROMO -[facility] Work Phone: Start: 11-05-2024 End: 11-06-2024 ambulatory Sarah Robins SENIOR ACCOUNTS PAYABLE CLERK Facility:[facility] Start: 09-21-2024 End: 09-25-2024 ambulatory JOSEFINA ZAVALETA DANCE HALL HOSTESS-SENIOR CONTROLS ANALYST Facility:[facility] Start: 09-21-2024 End: 09-25-2024 Outreach Lab JOSEFINA Narda WAQAR DANCE HALL HOSTESS-SENIOR CONTROLS ANALYST [facility] Start: 12-13-2023 End: 12-14-2023 ambulatory JOSEFINA ZAVALETA DANCE HALL HOSTESS-SENIOR CONTROLS ANALYST Facility:[facility] Start: 12-13-2023 End: 12-13-2023 Patient encounter procedure JOSEFINA ZAVALETA DANCE HALL HOSTESS-SENIOR CONTROLS ANALYST [facility] Start: 09-14-2023 End: 09-19-2023 ambulatory JOSEFINA ZAVALETA DANCE HALL HOSTESS-SENIOR CONTROLS ANALYST Facility:[facility] Start: 09-14-2023 End: 09-18-2023 Outreach Lab JOSEFINA Narda WAQAR DANCE HALL HOSTESS-SENIOR CONTROLS ANALYST [facility] Start: 08-18-2023 End: 08-18-2023 ambulatory SENIOR ACCOUNTS PAYABLE CLERK-C Josefina Zavaleta SENIOR ACCOUNTS PAYABLE CLERK Work Phone: [facility] Work Phone: Start: 08-18-2023 End: 08-18-2023 Patient encounter procedure SENIOR ACCOUNTS PAYABLE CLERK-C Josefina Zavaleta SENIOR ACCOUNTS PAYABLE CLERK Work Phone: [facility]-Sleep Lab Work Phone: Start: 07-27-2023 End: 07-27-2023 Patient encounter procedure SENIOR ACCOUNTS PAYABLE CLERK-C Josefina Zavaleta SENIOR ACCOUNTS PAYABLE CLERK Work Phone: [facility]-Pulmonary Medicine [facility] Work Phone: Start: 05-27-2023 End: 06-01-2023 ambulatory LENKA GRANADOS DANCE HALL HOSTESS-SENIOR CONTROLS ANALYST Facility:[facility] Start: 05-27-2023 End: 05-31-2023 Outreach Lab LENKA GRANADOS DANCE HALL HOSTESS-SENIOR CONTROLS ANALYST [facility] Start: 05-18-2023 ambulatory JOSEFINA LANG DANCE HALL HOSTESS-SENIOR CONTROLS ANALYST Facility:[facility] Start: 12-22-2022 End: 12-27-2022 ambulatory JOSEFINA ZAVALETA DANCE HALL HOSTESS-SENIOR CONTROLS ANALYST Facility:[facility] Start: 12-22-2022 End: 12-26-2022 Outreach Lab JOSEFINA ZAVALETA DANCE HALL HOSTESS-SENIOR CONTROLS ANALYST [facility] Start: 12-11-2022 End: 12-11-2022 Patient encounter procedure JOSEFINA ZAVALETA DANCE HALL HOSTESS-SENIOR CONTROLS ANALYST [facility] Start: 11-23-2022 Non-patient / Non-visit Dr. Kimmy Hernandez Work Phone: [facility] Start: 11-23-2022 End: 11-23-[address] Matt Hernandez Work Phone: [facility] Work Phone: Start: 11-23-2022 End: 11-23-[address] Matt Hernandez Work Phone: [facility]-Cardiovascul ar Services Start: 10-27-2022 End: 10-27-[address] Matt Hernandez Work Phone: [facility] Start: 10-20-2022 ambulatory MARK [facility] Start: 09-15-2022 End: 09-15-2022 Patient encounter procedure CATINA VANCE MD [facility] Start: 05-04-2022 End: 05-04-2022 Patient encounter procedure MARTA SOLORIO DANCE HALL HOSTESS-SENIOR CONTROLS ANALYST [facility] Start: 04-15-2022 End: 04-15-2022 Patient encounter procedure MARTA SOLORIO DANCE HALL HOSTESS-SENIOR CONTROLS ANALYST [facility] Start: 04-13-2022 End: 04-13-2022 Patient encounter procedure MARTA SOLORIO DANCE HALL HOSTESS-SENIOR CONTROLS ANALYST [facility] Start: 03-25-2022 End: 03-25-2022 Patient encounter procedure MARTA SOLORIO DANCE HALL HOSTESS-SENIOR CONTROLS ANALYST [facility] Start: 02-22-2022 Office outpatient vi sit 15 minutes Marta Solorio Work Phone: [id number][facility]Uhrtcgwbz Work Phone: Start: 02-15-2022 Chart Update Marta Mason s Work Phone: XG[facility]aaiai[facility]He[facility] Work Phone: Start: 02-09-2022 Chart Update Marta Maggie Mason s Work Phone: CF-Amgbxhw-Uyatmiy Work Phone: Start: 02-04-2022 Chart Update Marta J Marlon s Work Phone: OM-Zslxbkj-Lllkuqhs HC 232 DO Work Phone: Start: 07-07-2021 End: 07-07-2021 Patient encounter procedure MARTA SOLORIO DANCE HALL HOSTESS-SENIOR CONTROLS ANALYST [facility] Start: 07-01-2021 End: 07-01-2021 Office outpatient visit 15 minutes Mark Odell MD Work Phone: [facility] Comment on above: Obstructive sleep ap devin syndrome; Mixed hyperlipidemia; Newly recognized heart murmur; LVH (left ventricular hypertrophy) Start: 12-27-2020 End: 12-27-2020 Refill Mark Odell MD Work Phone: [facility] Comment on above: Medication Refill (P ravastatin) Start: 09-10-2020 End: 09-15-2020 Office outpatient visit 25 minutes Mark Odell Work Phone: [facility] Comment on above: Obstructive sleep ap devin syndrome (Primary Dx); Mixed hyperlipidemia; Newly recognized heart murmur Obstructive sleep ap devin syndrome (Primary Dx); Mixed hyperlipidemia; Newly recognized heart murmur; Transient confusion Start: 08-28-2020 End: 08-28-2020 Subsequent hospital visit by physician Divina Wing Work Phone: [employer] Comment on above: 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, left; S/P carpal tunnel release Start: 07-17-2020 End: 07-17-2020 Subsequent hospital visit by physician Divina Wing Work Phone: [employer] [employer] Comment on above: Psoriatic arthritis (HCC); Slac (scapholunate advanced collapse) of wrist, left; Carpal tunnel syndrome of left wrist; Cubital tunnel syndrome on left Start: 06-17-2020 End: 06-17-2020 Subsequent hospital visit by physician Divina Wing Work Phone: [facility] Comment on above: Wrist arthritis (Marcelle artem Dx) Start: 06-10-2020 End: 06-10-2020 Subsequent hospital visit by physician Divina Wing Work Phone: [employer] [facility] Comment on above: Arrived Start: 05-22-2020 End: 05-22-2020 Subsequent hospital visit by physician Divina Wing Work Phone: [employer] [facility] Start: 04-23-2020 End: 04-24-2020 Patient encounter procedure MARK ODELL [facility] Start: 04-23-2020 End: 04-23-2020 Subsequent hospital visit by physician Mark Odell Work Phone: [facility] Comment on above: Transient alteration of awareness ; Transient confusion Start: 04-08-2020 End: 04-09-2020 Patient encounter procedure ISAI PAGE [facility] Start: 04-08-2020 End: 04-08-2020 Subsequent hospital visit by physician Isai Page Work Phone: [facility] MRI Comment on above: TGA (transient globa l amnesia) Start: 03-11-2020 End: 03-11-2020 Office outpatient new 45 minutes Mark Miguel Odell Work Phone: [facility], Neuro[facility] Comment on above: TGA (transient globa l amnesia) Start: 02-06-2020 End: 02-06-2020 Office outpatient visit 25 minutes Mark Rivera Odell Work Phone: [facility] Comment on above: Mixed hyperlipidemia (Primary Dx); Newly recognized heart murmur; Transient confusion; Transient global amnesia ; Other transient cerebral ischemic attacks and related syndromes ; Obstructive sleep apnea syndrome Start: 12-19-2018 Refill Matt fam MD Work Phone: [facility] Comment on above: Type 2 diabetes mihaela itus without complication, without long- term current use of insulin ([facility]); 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) Start: 12-06-2018 End: 12-06-2018 Office outpatient visit 15 minutes Koalifyvin Odell Work Phone: [facility] Comment on above: Mixed hyperlipidemia ; Body mass index (BMI) of 33.0 to 33.9 in adult; Newly recognized heart murmur Start: 11-17-2018 End: 11-17-2018 Office outpatient visit 25 minutes Sarah Loera Work Phone: [facility] Comment on above: Attention deficit hy peractivity disorder (ADHD), predominantly inattentive type (Primary Dx); Body mass index (BMI) of 33.0 to 33.9 in adult; Psoriatic arthritis (HCC); Mixed hyperlipidemia; Type 2 diabetes mellitus with diabetic dermatitis, without long-term current use of insulin (HCC) Start: 09-14-2018 End: 09-14-2018 Office outpatient visit 25 minutes Matt Hernandez Work Phone: [facility] Comment on above: Attention deficit hy peractivity disorder (ADHD), predominantly inattentive type Start: 08-17-2018 End: 08-17-2018 Office outpatient visit 25 minutes Matt Hernandez Work Phone: [facility] Comment on above: Type 2 diabetes mihaela itus without complication, without long- term current use of insulin (HCC) (Primary Dx); Abnormal chest x-ray; Psoriatic arthritis (HCC); Attention deficit hyperactivity disorder (ADHD), predominantly inattentive type Start: 07-12-2018 Refill Matt fam MD Work Phone: [facility] Comment on above: Type 2 diabetes mihaela itus without complication, with long-term current use of insulin (HCC) (Primary Dx) Start: 07-05-2018 End: 07-05-2018 Office outpatient new 45 minutes Sarah Loera Work Phone: [facility] Comment on above: Newly recognized hea rt murmur (Primary Dx); Hyperlipidemia, unspecified hyperlipidemia type; Obstructive sleep apnea syndrome; Type 2 diabetes mellitus with diabetic dermatitis, without long-term current use of insulin (HCC); Dizziness Start: 12-28-2017 End: 12-28-2017 Office/outpatient visit, est, level 4 Matt Hernandez Work Phone: [facility] Start: 12-27-2017 End: 12-27-2017 ERRONEOUS ENCOUNTER-DISREGARD Matt Hernandez Work Phone: [facility] Start: 10-04-2017 Ambulatory Matt Hernandez Facility:[facility] Start: 10-04-2017 End: 10-04-2017 Ambulatory Matt Hernandez Work Phone: [facility] Start: 10-04-2017 End: 10-04-2017 Office/outpatient visit, est, level 4 Matt Hernandez Work Phone: [facility] Start: 09-15-2017 Office/outpatient vi sit, est, level 3 Matt Hernandez Work Phone: [facility] Start: 06-21-2017 Office/outpatient vi sit, est, level 4 Matt Hernandez Work Phone: [facility] Start: 03-24-2017 End: 03-24-2017 Ambulatory MATT HERNANDEZ [facility] Start: 03-24-2017 Ambulatory Matt Uriah Hernandez Facility:[facility] Start: 03-24-2017 End: 03-24-2017 Ambulatory Matt Uzair Hernandez Work Phone: [facility] Start: 03-24-2017 End: 03-24-2017 Office outpatient visit 15 minutes Matt Hernandez Work Phone: [facility] Comment on above: Type 2 diabetes mihaela itus without complication, without long- term current use of insulin (HCC);Varicosities of leg Procedures Date Procedure Procedure Detail Performing Clinician Start: 05-14-2025 MRI of brain without contrast Dr. Topher Poe MD Work Phone: Start: 04-13-2025 Glucose blood reagent strip Ray Hoskins MD Work Phone: Start: 04-13-2025 Glucose blood reagent strip Ray Hoskins MD Work Phone: Start: 04-13-2025 Assay of magnesium Keisha aret Vanessa PA-C Work Phone: Start: 04-12-2025 Ct head/brain w/o co ntrast material Edilma Kong DO Work Phone: Start: 04-12-2025 Glucose blood reagent strip Ray Hoskins MD Work Phone: Start: 04-12-2025 Glucose blood reagent strip Ray Hoskins MD Work Phone: Start: 04-12-2025 Glucose blood reagent strip Ray Hoskins MD Work Phone: Start: 04-12-2025 Glucose blood reagent strip Ray Hoskins MD Work Phone: Start: 04-12-2025 End: 04-12-2025 Hemoglobin glycosylated a1c Luz Cross pankaj OTTO Work Phone: Start: 04-11-2025 Ct angiography head w/contrast/noncontrast Andrés Stack MD Work Phone: Start: 04-11-2025 End: 04-11-2025 Assay of magnesium Andrés Stack MD Work Phone: Start: 04-11-2025 Ecg routine ecg w/le ast 12 lds trcg only w/o i&r To Be Assigned Start: 08-28-2020 Radex wrist complete minimum 3 views Divina J Maciej Work Phone: Start: 07-17-2020 Radex wrist complete minimum 3 views Divina J Maciej Work Phone: Start: 06-17-2020 OPERATIVE REPORT 3m Sca nning Start: 06-17-2020 Gluc bld gluc mntr d ev cleared fda spec home use Divina J Maciej Work Phone: Start: 06-17-2020 Gluc bld gluc mntr d ev cleared fda spec home use Divina J Glisten Work Phone: Start: 06-10-2020 Basic metabolic pane l calcium total Amadeo Daren [employer] Work Phone: Start: 06-10-2020 Blood count complete automated Amadeo Kudo Work Phone: Start: 06-10-2020 Ecg routine ecg w/le ast 12 lds w/i&r Amadeo Daren [employer] Work Phone: Start: 04-23-2020 Echo tthrc r-t 2d w/wom-mode compl spec&colr d Mark Miguel Odell Work Phone: Start: 04-08-2020 Mra neck w/contrast material Isai Page Work Phone: Start: 04-08-2020 MR angiography of he ad and brain without contrast Isai Jimmy Page Work Phone: Start: 04-08-2020 Creatinine [Mass/vol ume] in Blood Isai Page Work Phone: Start: 04-03-2019 History of arthropla sty of right knee MARTA SOLORIO DANCE HALL HOSTESS-SENIOR CONTROLS ANALYST Comment on above: ROBOTIC ASSISTED Start: 08-17-2018 Hemoglobin A1c/Hemoglobin.total in Blood Matt Hernandez Work Phone: Start: 07-05-2018 End: 07-05-2018 12 lead ECG Mark Odell Work Phone: Start: 01-02-2018 3 comp foot exam completed Mark Odell Start: 10-26-2017 Ophthalmic examinati on and evaluation Mark Odell Start: 10-04-2017 Microalbumin [Mass/v olume] in Urine by Test strip Mark Odell Start: 08-24-2016 Adult depression scr eening assessment Mark Odell MD Work Phone: Arthroplasty of knee MARTA SOLORIO DANCE HALL HOSTESS-SENIOR CONTROLS ANALYST Comment on above: bilateral 2018 Arthroplasty of knee Marta Serrano Solorio Work Phone: Colonoscopy MARTA Laboy PRN-SENIOR CONTROLS ANALYST Decompression of med zulema nerve MARTA SOLORIO DANCE HALL HOSTESS-SENIOR CONTROLS ANALYST Comment on above: bilateral 12/2015 [facility] Decompression of med zulema nerve Marta Solorio Work Phone: Decompression of med zulema nerve MARTA SOLORIO DANCE HALL HOSTESS-SENIOR CONTROLS ANALYST Comment on above: bilateral Dilation of urethra MARTA PULIDO DANCE HALL HOSTESS-SENIOR CONTROLS ANALYST History of total hip arthroplasty MARTA JANESSA DANCE HALL HOSTESS-SENIOR CONTROLS ANALYST Comment on above: left right Inguinal hernia (disorder) P RUBEN SOLORIO DANCE HALL HOSTESS-SENIOR CONTROLS ANALYST Comment on above: JOSE, CHILD Insertion of hip prosthesis MARTA SOLORIO DANCE HALL HOSTESS-SENIOR CONTROLS ANALYST Comment on above: bilateral 2011 [facility] Total arthroplasty o f knee, geomedic or polycentric MARTA SOLORIO DANCE HALL HOSTESS-SENIOR CONTROLS ANALYST Total replacement of hip Abby Solorio Work Phone: Plan of Treatment Date Care Activity Detail Author Start: 04-12-2030 Lipid panel [facility] Start: 06-09-2025 Tetanus vaccination [facility] Start: 05-27-2025 Registered Recurring Registered Recu rring -Speech Therapy Work Phone: Start: 04-01-2025 COVID-19 Vaccine ( season) [facility] Start: 04-01-2025 Influenza vaccination Influenza Vacc ine (#1) [facility] Start: 04-01-2025 Welcome to Medicare Visit (G0402) Welcome to Medicare Visit (G0402) [facility] Start: 12-18-2024 Evaluation of diagnostic study results 12 Lead EKG performed by [facility] Start: 06-13-2023 Pneumococcal Vaccine : Age 65+ (1 of 1 - PPSV23) Pneumococcal Vaccine: Age 65+ (1 of 1 - PPSV23) [facility] Start: 04-01-2022 Influenza vaccination Sequenti al Influenza Vaccine (#1) [facility] Start: 02-26-2022 FUV, Provider: Matt Correa II, Status: Pen, Time: 7:30 AM FUV, Provider: Matt Correa II, Status: Pen, Time: 7:30 AM [id number] [facility] 232 DO Work Phone: Start: 02-22-2022 FUV, Provider: Matt Correa II, Status: Pen, Time: 11:30 AM FUV, Provider: Matt Correa II, Status: Pen, Time: 11:30 AM [id number]-Adhafrb Work Phone: Start: 06-10-2021 Creatinine measurement Creatinine mo [place], [place] Start: 06-10-2021 Potassium monitoring Potassium monit [place], [place] Start: 04-01-2021 Influenza vaccination Sequenti al Influenza Vaccine (#1) [facility] Start: 10-23-2020 End: 10-23-2020 Office Visit 10/23/2020 Office Visit Orthopedic Surgery Divina Wing MD [address] [facility] [address] [place] [address] [phone] [facility] [place] Start: 08-28-2020 End: 08-28-2020 Nurse Only [facility] [place] Start: 06-30-2020 End: 06-30-2020 Nurse Only [facility] [place] Start: 06-17-2020 End: 06-17-2020 Appointment 06/17/2020 Appointment General Surgery Divina Wing MD [address] [facility] [address] [place] [address] [phone] [facility] Start: 05-22-2020 Annual Wellness Visi t (AWV) Annual Wellness Visit (AWV) [place], [place] Start: 04-08-2020 End: 04-08-2020 Appointment 04/08/2020 Appointment Radiology Isai Page MD [address] [place] [address] [phone] [facility] Start: 04-01-2020 Influenza vaccination Flu vaccine (# 1) [place], [place] Start: 04-01-2020 Influenza vaccinatio n given Sequential Influenza Vaccine (#1) [facility] Start: 09-14-2019 [facility] Start: 08-01-2019 Hemoglobin A1c measurement A1C [facility] Start: 06-13-2019 Pneumococcal vaccination [facility] Start: 06-13-2019 Pneumococcal Vaccine : Age 65+ (2 - PPSV23 if available, else PCV20) Pneumococcal Vaccine: Age 65+ (2 - PPSV23 if available, else PCV20) [facility] Start: 02-16-2019 End: 02-16-2019 Office Visit 02/16/2019 Office Visit Primary Care Luz Maria, Sarah Infante, SENIOR CONTROLS ANALYST [address] [place] [address] [phone] [facility] Start: 02-14-2019 Hemoglobin A1c measurement A1C [facility] Start: 02-14-2019 Hemoglobin A1c/Hemoglobin.total mass fraction (Bld) [facility] Start: 01-02-2019 Diabetic foot examination FOOT EXAM [facility] Start: 12-06-2018 End: 12-06-2018 Ambulatory [facility] Start: 12-06-2018 End: 12-06-2018 Office Visit 12/06/2018 Office Visit Primary Care [place] [address] [phone] [facility] Start: 11-12-2018 DTaP/Tdap/Td vaccine (2 - Td) DTaP/Tdap/Td vaccine (2 - Td) [place], [place] Start: 11-12-2018 TETANUS EVERY 10 YR TETANUS EVERY 10 YR [facility] Work Phone: Start: 11-12-2018 Tetanus vaccination [facility] Work Phone: Start: 10-26-2018 Glaucoma screening Ophthalmology Exa m [facility] Start: 10-26-2018 Ophthalmic examinati on and evaluation OPHTHALMOLOGY EXAM [facility] [facility] Start: 10-04-2018 Microalbumin measurement, urine, quantitative Urine Microalbumin [facility] Start: 10-04-2018 Urine, microalbumin URINE MICROALBUM IN [facility] Start: 09-14-2018 End: 09-14-2018 Ambulatory [facility] Start: 08-08-2018 Pneumococcal Vaccine : Age 65+ (1 of 2 - PPSV23) Pneumococcal Vaccine: Age 65+ (1 of 2 - PPSV23) [facility] Start: 05-01-2018 Screening colonoscopy COLONOSCOPY [facility] Start: 04-06-2018 HbA1c HEMOGLOBIN A1C [facility] Start: 04-06-2018 Urine screening for protein Urine Microalbumin [facility] Start: 03-30-2018 End: 03-30-2018 Ambulatory 03/30/2018 Office Visit Primary Care Matt Hernandez MD [address] [place] [address] [phone] [facility] Start: 2017 Fall risk assessment Steadi Fa ll Risk Assessment [facility] Start: 2017 Pneumococcal 65+ yea rs Vaccine (2 of 2 - PPSV23) Pneumococcal 65+ years Vaccine (2 of 2 - PPSV23) [facility] [place] Start: 2017 Pneumococcal vaccination PNEUMOCOCCAL VACCINE AGE 65+ (1 of 2 - PCV13) [facility] Start: 12-13-2017 End: 12-13-2017 Ambulatory 12/13/2017 Office Visit Primary Care Matt Hernandez MD [address] [place] [address] [phone] [facility] Start: 11-22-2017 End: 11-22-2017 Ambulatory 11/22/2017 Office Visit Primary Care Matt Hernandez MD [address] [place] [address] [phone] [facility] Start: 09-24-2017 HbA1c HEMOGLOBIN A1C [facility] Work Phone: Start: 09-15-2017 Ambulatory 09/15/2017 Off ice Visit Primary Care Matt Hernandez MD [address] [place] [address] [phone] [facility] Start: 08-24-2017 Depression screening using PHQ-9 (Patient Health Questionnaire 9) score [facility] Start: 06-21-2017 Ambulatory 06/21/2017 Off ice Visit Primary Care Matt Hernandez MD [address] [place] [address] [phone] [facility] Start: 04-01-2017 Influenza vaccination SEQUENTI AL INFLUENZA VACCINE (#1) [facility] Work Phone: Start: 04-01-2017 SEQUENTIAL INFLUENZA VACCINE (#1) SEQUENTIAL INFLUENZA VACCINE (#1) [facility] Work Phone: Start: 2012 Hepatitis B (HBV) Vaccine (optional start 60+ years) Hepatitis B (HBV) Vaccine (optional start 60+ years) [facility] Start: 2012 Zoster vacc, sc ZOSTER VACCINE [facility] Work Phone: Start: 2002 Administration of herpes zoster vaccine ZOSTER VACCINES (1 of 2) [facility] Start: 2002 Screening for malign ant neoplasm of colon [facility] Start: 2002 Shingles (RZV) Vacci ne (1 of 2) Shingles (RZV) Vaccine (1 of 2) [facility] Start: 2002 Shingles Vaccine (1 of 2) Shingles Vaccine (1 of 2) [place] Start: 2002 ZOSTER VACCINES (1 o f 2) ZOSTER VACCINES (1 of 2) [facility] Start: 1997 Screening for malign ant neoplasm of colon [facility] Start: 1992 Diabetes screen Diabetes screen [place], [place] Start: 12-18-1971 Hepatitis A (HAV) Vaccine (optional start 19+ years) Hepatitis A (HAV) Vaccine (optional start 19+ years) [facility] Start: 1970 Hepatitis C screening Hepatitis C An tibody [facility] Start: 1968 COVID-19 Vaccine (1 of 2) COVID-19 Vaccine (1 of 2) [facility] Start: 1964 Adolescent depressio n screening assessment Depression Screening (PHQ9) [facility] Start: 1964 COVID-19 Vaccine (1) COVID-19 Vaccin e (1) [facility] Start: 1962 Lipid panel Lipid screen [place], [place] Start: 1962 Diabetic foot examination (regime/therapy) FOOT EXAM [facility] Work Phone: Start: 1962 FOOT EXAM FOOT EXAM [facility] Work Phone: Start: 1962 Ophthalmic examinati on and evaluation OPHTHALMOLOGY EXAM [facility] Work Phone: Start: 1962 OPHTHALMOLOGY EXAM OPHTHALMOLOGY EXA M [facility] Work Phone: Start: 1962 URINE MICROALBUMIN URINE MICROALBUMI N [facility] Work Phone: Start: 1962 Urine, microalbumin URINE MICROALBUM IN [facility] Work Phone: Start: 05-19-1956 History and physical examination, annual for health maintenance Wellness Visit [facility] Start: 06-19-1953 COVID-19 Vaccine (#1) COVID-19 Vacci ne (#1) [facility] Start: 1952 Abdominal aortic aneurysm screening AAA screen [place], [place] Start: 1952 Creatinine measurement Creatinine mo nitoring [place], [place] Start: 1952 Depression screening using PHQ-9 (Patient Health Questionnaire 9) score Depression Screening (PHQ9) [facility] Start: 1952 Fall risk assessment Falls Risk Asse ssment [facility] Start: 1952 Hepatitis C [facility] [place] [place] Start: 1952 Potassium monitoring Potassium monit oring [place], [place] Start: 1952 Prostate specific antigen measurement PSA Level [facility] Start: 1952 Protein mass conc COLONOSCOPY [facility] Start: 1952 Screening for malign ant neoplasm of colon [facility] Start: 1952 Colonoscopy COLONOSCOPY [facility] Work Phone: Start: 1952 HEMOGLOBIN A1C HEMOGLOBIN A1C [facility] Work Phone: Start: 1952 HEPATITIS C SCREENING HEPATITIS C SC BECKA [facility] Work Phone: Start: 1952 Screening colonoscopy COLONOSCOPY O [facility] Work Phone: Assay of magnesium MAGNESIUM Lab STAT Daily until discontinued starting 04/12/2025, 2 completed [employer] Comment on above: Daily until disconti nued starting 04/12/2025, 2 completed Assay of phosphorus inorganic PHOSPHORUS Lab STAT Daily until discontinued starting 04/12/2025, 2 completed [facility] [employer] Comment on above: Daily until disconti nued starting 04/12/2025, 2 completed End: 04-12-2025 Basic metabolic 2000 panel - Serum or Plasma BASIC METABOLIC PANEL Lab STAT Morning Blood Draw for 1 Occurrences starting 04/12/2025 until 04/12/2025 [employer] Work Phone: Comment on above: Morning Blood Draw f or 1 Occurrences starting 04/12/2025 until 04/12/2025 Basic metabolic 2000 panel - Serum or Plasma BASIC METABOLIC PANEL Lab STAT Daily until discontinued starting 04/12/2025, 2 completed [facility] Comment on above: Daily until disconti nued starting 04/12/2025, 2 completed End: 06-17-2020 Blood glucose - POCT Blood glucose - POCT Point of Care Testing STAT One Time for 1 Occurrences starting 06/17/2020 until 06/17/2020 [facility] Comment on above: One Time for 1 Occur rences starting 06/17/2020 until 06/17/2020 End: 04-08-2021 Carotid artery doppler assessment Carotid Duplex Vascular Ultrasound Routine Transient global amnesia Transient confusion 1 Occurrences starting 02/06/2020 until 04/08/2021 [facility] Comment on above: 1 Occurrences starti ng 02/06/2020 until 04/08/2021 End: 10-04-2018 CBC and Differential CBC and Differential Routine Back pain, unspecified back location, unspecified back pain laterality, unspecified chronicity 1 Occurrences starting 10/04/2017 until 10/04/2018 [facility] CBC panel - Blood by Automated count COMPLETE BLOOD COUNT Lab STAT Daily until discontinued starting 04/12/2025, 2 completed [facility] Comment on above: Daily until disconti nued starting 04/12/2025, 2 completed End: 11-18-2019 Comprehensive metabolic 2000 panel Comprehensive Metabolic Panel Routine Mixed hyperlipidemia 1 Occurrences starting 11/17/2018 until 11/18/2019 [facility] Comment on above: 1 Occurrences starti ng 11/17/2018 until 11/18/2019 End: 10-04-2018 Comprehensive metabolic panel [AGGREGATE] Comprehensive Metabolic Panel Routine 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) 1 Occurrences starting 10/04/2017 until 10/04/2018 [facility] End: 04-08-2021 Echocardiogram complete with bubble study Echocardiogram complete with bubble study Echocardiography Routine 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 1 Occurrences starting 02/06/2020 until 04/08/2021 [facility] Comment on above: 1 Occurrences starti ng 02/06/2020 until 04/08/2021 EKG 12 Lead EKG 12 Lead ECG Routine 06/10/2020 1:39 PM EST [facility] End: 10-04-2018 HbA1c Hemoglobin A1c Routine Type 2 diabetes mellitus without complication, without long-term current use of insulin (HCC) 1 Occurrences starting 10/04/2017 until 10/04/2018 [facility] End: 11-18-2019 Hemoglobin A1c/Hemoglobin.total mass fraction (Bld) Hemoglobin A1c Routine Type 2 diabetes mellitus with diabetic dermatitis, without long-term current use of insulin (HCC) 1 Occurrences starting 11/17/2018 until 11/18/2019 [facility] Comment on above: 1 Occurrences starti ng 11/17/2018 until 11/18/2019 End: 06-17-2020 Intermittent pulse oximetry Pulse Oximetry Spot Check Respiratory Care Routine One Time for 1 Occurrences starting 06/17/2020 until 06/17/2020 [employer] Comment on above: One Time for 1 Occur rences starting 06/17/2020 until 06/17/2020 End: 11-18-2019 Lipid 1996 panel Lipid Panel Routine Mixed hyperlipidemia 1 Occurrences starting 11/17/2018 until 11/18/2019 [facility] Comment on above: 1 Occurrences starti ng 11/17/2018 until 11/18/2019 End: 04-13-2025 Lipid 1996 panel - Serum or Plasma FULL LIPID PROFILE Lab STAT Morning Blood Draw for 1 Occurrences starting 04/13/2025 until 04/13/2025 [facility] Comment on above: Morning Blood Draw f or 1 Occurrences starting 04/13/2025 until 04/13/2025 End: 10-04-2018 Lipid panel Lipid Panel Routine Type 2 diabetes mellitus without complication, without long-term current use of insulin (HCC) 1 Occurrences starting 10/04/2017 until 10/04/2018 [facility] End: 03-11-2021 MR angiography of head and brain without contrast MRA Brain Without Contrast Imaging Routine TGA (transient global amnesia) 1 Occurrences starting 03/11/2020 until 03/11/2021 [facility] Comment on above: 1 Occurrences starti ng 03/11/2020 until 03/11/2021 MR Brain WO contrast [facility] End: 03-12-2021 MRA Neck With Contrast MRA Neck With Contrast Imaging Routine TGA (transient global amnesia) 1 Occurrences starting 03/11/2020 until 03/12/2021 [facility] Comment on above: 1 Occurrences starti ng 03/11/2020 until 03/12/2021 Oxygen therapy [[facility] Data Set] Initiate Oxygen Therapy Protocol Respiratory Care Routine Daily until discontinued starting 06/17/2020 [employer] Comment on above: Daily until disconti nued starting 06/17/2020 End: 08-17-2019 PFT spirometry pre and post bronchodilator PFT spirometry pre and post bronchodilator Routine Abnormal chest x-ray 1 Occurrences starting 08/17/2018 until 08/17/2019 [facility] Comment on above: 1 Occurrences starti ng 08/17/2018 until 08/17/2019 Spirometry panel Incentive eric metry Respiratory Care Routine Q1H PRN until discontinued starting 06/17/2020 [place] Comment on above: Q1H PRN until discon tinued starting 06/17/2020 End: 05-22-2020 XR WRIST LEFT 3 VW XR WRIST LEFT 3 VW Imaging Routine Once for 1 Occurrences starting 05/22/2020 until 05/22/2020 [place] Comment on above: Once for 1 Occurrenc es starting 05/22/2020 until 05/22/2020 XR WRIST LEFT 3 VW XR WRIST LEFT 3 VW Imaging Routine 05/22/2020 10:03 AM EDT [place], [place] Immunizations Immunization Date Immunization Notes Care Provider [facility] 06-18-2024 influenza virus vaccine, unspecified formulation JOSEFINA ZAVALETA DANCE [employer] H[employer]IOR [employer]NALY[employer] [facility] 06-18-2024 influenza, high dose seasonal, preservative-free Andrés Stack MD Work Phone: [facility] 06-18-2024 Respiratory syncytia l virus (RSV), vaccine, recombinant, protein subunit RSV prefusion F, adjuvant reconstituted, 0.5 mL, preservative free (GJP=[id number]) Andrés Stack MD Work Phone: [facility] 06-18-2024 RSV vaccine preF3, recombinant JOSEFINA ZAVALETA [employer]ANCE [employer] HOSTESS[employer]SENIOR [employer]NA[employer] [facility] 05-27-2023 influenza virus vaccine, unspecified formulation JOSEFINA ZAVALETA DANCE H[employer] HOSTESS[employer]SENIOR CONTR[employer]S ANALYST [facility] 05-27-2023 Influenza, injectabl e, adjuvanted, quadrivalent, preservative free (EMI=787) Andrés Stack MD Work Phone: [facility] 07-15-2022 influenza virus vaccine, unspecified formulation CATINA VANCE MD [facility] 07-15-2022 Influenza, injectabl e, high-dose seasonal, quadrivalent, preservative free (TXZ=503) Andrés Stack MD Work Phone: [facility] 04-29-2021 influenza virus vaccine, unspecified formulation MARTA SOLORIO [employer]ANCE [employer] H[employer]ESS-SENIOR CONTROLS ANALYST [facility] 04-29-2021 influenza, injectabl e, quadrivalent, preservative free Andrés Stack MD Work Phone: [facility] 10-23-2020 SARS-CoV-2 (COVID-19 ) mRNA-1273 vaccine MARTA SOLORIO [employer] ANALY[employer] [facility] Comment on above: Result Comment: 2020: [id number] 09-25-2020 SARS-CoV-2 (COVID-19 ) mRNA-1273 vaccine MARTA SOLORIO [employer] H[employer]SENIOR [employer]OLS ANALYST [facility] 06-03-2020 influenza virus vaccine, unspecified formulation MARTA SOLORIO [employer] HOSTESS[employer]SENIOR CONTROLS ANALYST [facility] 06-03-2020 influenza, high dose seasonal, preservative-free Andrés Stack MD Work Phone: [facility] 07-19-2019 influenza virus vaccine, unspecified formulation MARTA SOLORIO [employer] HOSTESS[employer]SENIOR [employer]S ANALYST [facility] 07-19-2019 influenza, high dose seasonal, preservative-free Andrés Stack MD Work Phone: [facility] 08-17-2018 [facility] influenza virus vaccine, unspecified formulation [facility] 06-13-2018 influenza, high dose seasonal, preservative-free; Translations: [INFLUENZA IIV3 HIGH DOSE 65 AND OLDER] [facility] 06-13-2018 pneumococcal conjuga te vaccine, 13 valent; Translations: [PNEUMOCOCCAL CONJUGATE 13-VALENT (PREVNAR 13)] [facility] 10-04-2017 HEMOGLOBIN A1C [facility] 03-24-2017 HEMOGLOBIN A1C [facility] Work Phone: 06-09-2015 tetanus and diphther ia toxoids, adsorbed, preservative free, for adult use (2 Lf of tetanus toxoid and 2 Lf of diphtheria toxoid) Dr. Matt Hernandez Work Phone: [facility] 06-09-2015 tetanus and diphther ia toxoids, adsorbed, preservative free, for adult use (5 Lf of tetanus toxoid and 2 Lf of diphtheria toxoid) MARTA SOLORIO [facility] 11-12-2008 tetanus toxoid, reduced diphtheria toxoid, and acellular pertussis vaccine, adsorbed [facility] Work Phone: Payers Date Payer Category Payer Blue Cross Blue Shield ANTHEM - MEDICARE [id number] 04-01-2025 [facility] [place] [facility] [id number] 11-05-2024 Self-pay [id number] 10-25-2023 Unknown [id number] 07-31-2020 Unknown [id number] 10-31-2019 Private Health Insurance HUMANA HUMANA OTHER AFTER MEDICARE xxxxxxxxx 2019-Present xxxxxxxxx [id number] 10-31-2019 Private Health Insurance HUMANA HUMANA OTHER AFTER MEDICARE [id number] 10/31/2019-Present [id number] 10-31-2019 Private Health Insurance [id number] 10-31-2019 Private Health Insurance HUMANA HUMANA OTHER AFTER MEDICARE [id number] 10/31/2019-Present [phone] [address] [address] [place] [address] [id number] 07-01-2018 Medicare MEDICARE MEDICAR E PART A & B xxxxxxxxxxx 2018-Present [place] xxxxxxxxxxx [id number] 07-01-2018 Medicare MEDICARE MEDICAR E PART A & B [id number] 07/01/2018-Present [place] [id number] 07-01-2018 Medicare [id number] 07-01-2018 Medicare [id number]. [id number] 08-01-2015 Unknown [id number] 08-01-2015 Unknown [id number] [id number] 08-01-2015 Unknown 04-01-2005 Unknown AUL[employer]ARE [id number] 1952 Unknown [id number] 2.16.840.1.827762.3.579.2.62 7 1952 Unknown [id number] 2.16.840.1.215232.3.579.2.62 7 1952 Unknown [id number] 2.16.840.1.473476.3.579.2.62 7 1952 Unknown [id number] 2.16.840.1.205265.3.579.2.62 7 1952 Unknown [id number] 2.16.840.1.510890.3.579.2.62 7 1952 Unknown [id number] 2.16.840.1.866057.3.579.2.62 7 1952 Unknown [id number] 2.16.840.1.525087.3.579.2.62 7 1952 Unknown [id number] 2.16.840.1.840218.3.579.2.90 3 1952 Unknown [id number] 2.16.840.1.126697.3.579.2.90 3 1952 Unknown [id number] 2.16.840.1.113794.3.579.2.90 3 1952 Unknown [id number] 2.16.840.1.124852.3.579.2.90 3 1952 Unknown [id number] 2.16.840.1.842877.3.579.2.73 2 1952 Unknown [id number] 2.16.840.1.824593.3.579.2.73 2 1952 Unknown [id number] 2.16.840.1.631181.3.579.2.73 2 Unknown [id number] 2.16.840.1.210275.3.579.2.46 2 Unknown [id number] 2.16.840.1.745552.3.579.2.46 2 Unknown [id number] 2.16.840.1.918365.3.579.2.46 2 Unknown [id number] 2.16.840.1.335629.3.579.2.46 2 Unknown [id number] 2.16.840.1.483764.3.579.2.46 2 Unknown [id number] 2.16.840.1.091067.3.579.2.46 2 Unknown [id number] 2.16.840.1.337059.3.579.2.46 2 Unknown [id number] 2.16.840.1.791418.3.579.2.46 2 Social History Date Type Detail Facility Start: 11-13-2017 End: 04-19-2025 Tobacco smoking status WVIS Never smoker [facility] Work Phone: Start: 1950 [facility] Work [facility]: Start: 05-01-2016 Alcohol Comment socially/wine and liquor [facility] Start: 07-05-2018 End: 02-06-2020 Alcohol intake Current drinker of alcohol (finding) [facility] Start: 06-01-2021 End: 07-01-2021 Exposure to SARS-CoV-2 (event) Not sure [facility] Start: 03-11-2020 End: 04-12-2025 Tobacco use and exposure Never used [facility] Start: 06-17-2020 End: 07-17-2020 Tobacco smoking status NHIS Former smoker [facility] [place], [place] Start: 06-17-2020 Alcohol Comment 2-3 weeks [facility] [place], [place] Sex Assigned At [facility] Start: 04-12-2025 Never a smoker Never a smoker [facility] 232 DO Work Phone: Start: 1950 Sex Assigned At Male [facility] Start: 10-27-2022 End: 07-27-2023 Tobacco smoking status [facility] Unknown if ever smoked [facility] Start: 06-25-2019 End: 04-11-2025 Sex Male (finding) [facility] Start: 04-12-2025 [facility] Utilities [facility] Has the [employer], [email or web address] or [employer] threatened to shut off services in your home in past 12Mo No [facility] Fear of Current or Ex-Partner Not on file [facility] (I/We) worried wheth er (my/our) food would run out before (I/we) got money to buy more. Never true [facility] Medical Equipment Procedure Code Equipment Code Equipment Origin al Text Equipment Identifier Dates See Instructions , AccuChek Lancets. #1 box of 100. Use to check blood sugar once daily, # 1 EA, 3 Refill(s), Pharmacy: [id number], DMII (diabetes mellitus, type 2), 190, cm, 03/18/23 11:40:00 EDT, Height, 124.8, kg, 03/18/23 11:40:00 EDT, Dosing Weight Start: 05-20-2023 See Instructions , AccuChek Test Strips #1 box of 100. Use to check blood sugar once daily, # 1 EA, 3 Refill(s), Pharmacy: [id number], DMII (diabetes mellitus, type 2), 190, cm, 03/18/23 11:40:00 EDT, Height, 124.8, kg, 03/18/23 11:40:00 EDT, Dosing Weight Start: 05-20-2023 Blood Sugar Diagnostic (Accu-Chek Guide Test Strips) strip Start: 07-27-2023 Lancets (Accu-Ch ek Softclix Lancets) misc Start: 07-27-2023 See Instructions , AccuChek Lancets. #1 box of 100. Use to check blood sugar once daily, # 1 EA, 3 Refill(s), Pharmacy: [facility]/pharmacy #[id number], DMII (diabetes mellitus, type 2), 190, cm, 03/18/23 11:40:00 EDT, Height, 124.8, kg, 03/18/23 11:40:00 EDT, Dosing Weight Start: 05-20-2023 See Instructions , AccuChek Test Strips #1 box of 100. Use to check blood sugar once daily, # 1 EA, 3 Refill(s), Pharmacy: [facility]/pharmacy #[id number], DMII (diabetes mellitus, type 2), 190, cm, 03/18/23 11:40:00 EDT, Height, 124.8, kg, 03/18/23 11:40:00 EDT, Dosing Weight Start: 05-20-2023 See Instructions , AccuChek Lancets. #1 box of 100. Use to check blood sugar once daily, # 1 EA, 3 Refill(s), Pharmacy: [facility]/pharmacy #[id number], DMII (diabetes mellitus, type 2), 190, cm, 03/18/23 11:40:00 EDT, Height, 124.8, kg, 03/18/23 11:40:00 EDT, Dosing Weight Start: 05-20-2023 See Instructions , AccuChek Test Strips #1 box of 100. Use to check blood sugar once daily, # 1 EA, 3 Refill(s), Pharmacy: [facility]/pharmacy #[id number], DMII (diabetes mellitus, type 2), 190, cm, 03/18/23 11:40:00 EDT, Height, 124.8, kg, 03/18/23 11:40:00 EDT, Dosing Weight Start: 05-20-2023 See Instructions , AccuChek Lancets. #1 box of 100. Use to check blood sugar once daily, # 1 EA, 3 Refill(s), Pharmacy: [facility]/pharmacy #[id number], DMII (diabetes mellitus, type 2), 190, cm, 03/18/23 11:40:00 EDT, Height, 124.8, kg, 03/18/23 11:40:00 EDT, Dosing Weight Start: 05-20-2023 See Instructions , AccuChek Test Strips #1 box of 100. Use to check blood sugar once daily, # 1 EA, 3 Refill(s), Pharmacy: [facility]/pharmacy #[id number], DMII (diabetes mellitus, type 2), 190, cm, 03/18/23 11:40:00 EDT, Height, 124.8, kg, 03/18/23 11:40:00 EDT, Dosing Weight Start: 05-20-2023 Blood Sugar Diagnostic (Accu-Chek Guide Test Strips) strip Start: 07-27-2023 Lancets (Accu-Ch ek Softclix Lancets) [facility] Start: 07-27-2023 See Instructions , AccuChek Lancets. #1 box of 100. Use to check blood sugar once daily, # 1 EA, 3 Refill(s), Pharmacy: [facility]/pharmacy #[id number], DMII (diabetes mellitus, type 2), 190, cm, 03/18/23 11:40:00 EDT, Height, 124.8, kg, 03/18/23 11:40:00 EDT, Dosing Weight Start: 05-20-2023 See Instructions , AccuChek Test Strips #1 box of 100. Use to check blood sugar once daily, # 1 EA, 3 Refill(s), Pharmacy: [facility]/pharmacy #[id number], DMII (diabetes mellitus, type 2), 190, cm, 03/18/23 11:40:00 EDT, Height, 124.8, kg, 03/18/23 11:40:00 EDT, Dosing Weight Start: 05-20-2023 Blood Sugar Diagnostic (Accu-Chek Guide Test Strips) strip Start: 07-27-2023 Lancets (Accu-Ch ek Softclix Lancets) [facility] [place] [place] Start: 07-27-2023 Blood Sugar Diagnostic (Accu-Chek Guide Test Strips) strip Start: 07-27-2023 Lancets (Accu-Ch ek Softclix Lancets) [facility] [place] Start: 07-27-2023 Blood Sugar Diagnostic (Accu-Chek Guide Test Strips) strip Start: 07-27-2023 Lancets (Accu-Ch ek Softclix Lancets) [facility] [place] Start: 07-27-2023 Goals Date Patient Goal Desired Activity /State Comment on above: High blood pressure makes your heart work too hard. It can cause heart attack, stroke and kidney disease. Formatting of this n ote might be different from the original. High blood pressure makes your heart work too hard. It can cause heart attack, stroke and kidney disease. Comment on above: LDL or bad cholest mariana can build up and clog your blood vessels. It can cause heart attack or stroke. Formatting of this n ote might be different from the original. LDL or bad cholesterol can build up and clog your blood vessels. It can cause heart attack or stroke. Clinical Notes 12-30-2020 to 05-13-2025 Hernandez Le - 04/13/2025 10:05 AM EDLe Davila - 04/13/2025 10:05 AM Luz Bess, OT - 04/12/2025 1:41 PM Zenia PrincessTIKAW - 04/12/2025 11:48 AM EDT Note Date & Type Note Facility 05-13-2025 Progress note [facility] 04-13-2025 Note DISCHARGE SUMMARY [address] [id number] Nsah Ferguson Date of : 1950 74 year old male Attending Ray Hoskins MD Date of Admission 04/11/2025 Date of Discharge 04/13/25 Final Diagnosis: Cerebrovascular accident (CVA) due to embolism (HCC) Hospital Problems as of 04/13/2025 * (Principal) Cerebrovascular accident (CVA) due to embolism (HCC) 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 Condition at Discharge improved Symptoms to look out for after discharge: New or Severe Pain and Headache Activity: no driving. Diet no restrictions Disposition home Functional Status ambulatory For addt'l facility discharge info click 'Facility Discharge' tab. Reason for Hospitalization R sided weakness and vision loss Significant Findings CTA Head/neck: - age-indeterminate infarct vs. Dilated perivascular space in left basal ganglia - no large vessel occlusion; specifically, no intracranial ICA, M1, prox M2 or basilar artery occlusion - no ICA stenossi Echo: no shunt; LVEF 65% CT Head: small acute-subacute infarcts in left occipital pole without significant mass effect; possible trace petechial hemorrhage at the infarct margins vs. Regions of cortical sparing LDL 148; A1c 6.6% Hospital Course Nash Ferguson is a 74 year old male w/ PMH Diabetes, right bundle branch block, bilateral hearing loss, bilateral hip replacement, remote history of tobacco abuse presents with R sided weakness and binocular R hemianopsia. Workup noted an acute L occipital pole infarction and a prior L basal ganglia infarct. Imaging also noted an small subclincial hemorrhagic conversion. Risk factor workup showed normal echo and A1c and elevated LDL despite being on statin. Pt started on DAPT and second lipid lowering agent. He has history of small vessel disease prior - needs optimization of risk factors; recent stroke concerning for cardio embolic source will need further monitoring. To Do: - DAPT x 21d, followed by Asa 81 mg OD - c/t pravastatin and zetia - Event monitor on discharge - f/u neurologist in [place], [place]. Consider starting DOAC. Stroke Discharge Summary Diagnosis: Ischemic Stroke (includes imaging-negative stroke): Mechanism of Ischemic Attack:Cardioembolic Modifiable Risk Factors: Hyperlipidemia Anti-thrombotic/anti-coagulant treatment: Clopidogrel 75 mg and Aspirin 81 mg for 21 days followed by Aspirin 81 mg Statins: Other: pravastatin 20 mg Immediate post-discharge blood pressure management goals until outpatient follow-up: The patient is being discharged with an initial systolic blood pressure goal of 160 - 180. The blood pressure should be progressively lowered, so that by 4-6 weeks after discharge the blood pressure is less than 130/80 mm Hg. Final outpatient blood pressure goal within 4-6 weeks of discharge: Blood pressure Less than 140/90 Follow-up/outpatient To Do List: 30-day event monitor and Referrals: PCP and Neurology Pertinent Labs LIPIDS 04/12/2025 5:14 AM Chol- esterol 210 TG 106 HDL 48 LDL 148 Chol / HDL 4.38 LDL / HDL 3.08 Non HDL 162 Lab Results Component Value Date HBA1C 6.6 (H) 04/12/2025 Last neurologic exam documented by neurology team: Neurological Exam: Sedation: none Level of consciousness: awake, alert Affect: normal Orientation: oriented x3 Attention: normal Language: intact fluency, comprehension occassional difficulty with recollection Visual meek: Binocular R hemianopsia Neglect: absent Extinction: absent Right-left confusion: absent Cranial Nerves Vision/fundoscopic: n/a Pupils: 3 mm OD, 3 mm OS; reactive to light bilaterally Spontaneous gaze: no deviation Extraocular movements: intact Facial sensation: decreased on R Facial motor function: symmetric forehead wrinkling and smile Hearing: intact to conversation with bilat hearing aids Palate elevation: symmetric Dysarthria: absent Tongue: midline Shoulder shrug: normal Motor Tone: normal Drift: absent Spontaneous abnormal movements: none RUE antigravity, 5/5 full strength, follows commands LUE antigravity, 5/5 full strength, follows commands LLE antigravity, 5/5 full strength, follows commands RLE antigravity, 4/5 full strength, follows commands Sensation Decreased to light touch on R Coordination R: ataxic L: intact on FNF, HTS Pertinent Neuroimaging: CT Head: Small acute-subacute infarcts in the left occipital pole without significant mass effect. Possible trace petechial hemorrhage at the infarct margins versus regions of cortical sparing. ECASS Hemorrhagic Transformation Score: HI1 (more content not included)... [facility] 04-13-2025 Consult note Formatting of th is note is different from the original. OCCUPATIONAL THERAPY PROGRESS SUMMARY Patient seen from 8:41am to 9:20am on 6W unit for 39 minute treatment. SUBJECTIVE: Patient Subjective/Goals I will be done soon. (Re: bathroom) OBJECTIVE: Pain: 0/10 Pain Relief Interventions Implemented: None required; No pain at this time Appearance: Pt seated on toilet at onset with hospital gown donned, tele and IV Behavior: Alert, cooperative, pleasant Cognition: A&Ox3 Vision: R visual field cut UE Status: AROM WFL. Pt reports numbness in L hand at baseline and some difficulty opening small containers bilaterally. Self Care: Assistance Level NA Dep Max Mod Min CG CS DS AK I Set-Up Cues Comment Feeding x To manage beverage seated Grooming/ Hygiene x To wash hands and brush teeth with unilateral UE support on counter top Bathing: Upper Body x Simulated sponge bathing seated level Bathing: Lower Body x Simulated sponge bathing seated level; pt completing figure 4 technique to reach distal BLEs Dressing: Upper Body x To don/doff gown over front Dressing: Lower Body x To manage shorts; seated to thread BLEs and standing to pull up at waist Toileting x For sudha hygiene and shorts management in standing post BM Toilet Transfers x On/Off toilet with use of grab bars Bed Transfer x Sit to stand with no AD Functional Mobility x Completed without AD to/from bathroom; slow pace with mild unsteadiness but no overt LOB. Bed Mobility x Pt sitting in chair Pt left seated with call light in reach and present. Pt informed to call for staff when needing assistance and verbalized understanding. Endurance for Self Care: Fair Patient/Family Education: Instructed Patient in roles of therapy including compensatory strategies for R visual field cut, ADL re-training, safe transfer techniques, safety during functional mobility. DME: With Patients permission ordered no equipment via [employer] Order. If any questions contact [facility] DME Provider at [phone]. 04/13/2025 6 Clicks Daily Activity OT Help from another person Eating meals 4 Help from another person taking care of personal grooming 3 Help from another person bathing 3 Help from another person putting on and taking off regular upper body clothing 3 Help from another person putting on and taking off regular lower body clothing 3 Help from another person toileting 3 OT 6 Clicks Score 19 6 Click Score Guidelines: 1 - Unable = Total/Dependent Assist 2 - A lot = Max/Moderate Assist 3 - A little = Minimum/Contact Guard Assist/Supervision 4 - Non = Modified [place]/Independent ASSESSMENT: Patient is functionally appropriate for discharge home once medically cleared. Recommend Outpatient Occupational Therapy and PRN assistance from family/caregiver. Will continue to follow while in hospital as appropriate. Goals (to be achieved by discharge from acute care): Patient will perform grooming with Distant supervision Patient will dress upper body with Distant supervision Patient will dress lower body with Distant supervision Patient will perform bed mobility with Distant supervision Patient will perform bathing with Distant supervision Patient will perform toileting with Distant supervision Patient will perform bed transfers with Distant supervision Patient will perform commode transfers with Distant supervision Patient will demonstrate improved right fine motor skills to fasten buttons/zippers Pt will independently use visual scanning strategies to compensate for R visual field loss PLAN: Continue with Plan as per Initial Evaluation. KENISHA Baptiste This clinician collaborated with supervising OT for patient assessment and POC as appropriate. This document is not finalized until reviewed and cosigned by supervising OT. NA = Not Assessed, I = Independent, AK = Modified Independent, Sup = Supervised, Set up = Physical Assistance for Set-up Only, Min = Minimal Assistance, Mod = Moderate Assistance, Max = Max assistance; Dep = Dependent; AROM = Active Range of Motion;PROM=Passive Range of Motion; MMT = Manual Muscle Test; Shld= Shoulder; Add = Adduction; Abd = Abduction Cosigned by Leela Gleason, OT at 04/13/2025 1:06 PM EDT [facility] 04-13-2025 Note OCCUPATIONAL THERAPY PROGRESS SUMMARY Patient seen from 8:41am to 9:20am on 6W unit for 39 minute treatment. SUBJECTIVE: Patient Subjective/Goals I will be done soon. (Re: bathroom) OBJECTIVE: Pain: 0/10 Pain Relief Interventions Implemented: None required; No pain at this time Appearance: Pt seated on toilet at onset with hospital gown donned, tele and IV Behavior: Alert, cooperative, pleasant Cognition: A AND Ox3 Vision: R visual field cut UE Status: AROM WFL. Pt reports numbness in L hand at baseline and some difficulty opening small containers bilaterally. Self Care: Assistance Level NA Dep Max Mod Min CG CS DS AK I Set-Up Cues Comment Feeding x To manage beverage seated Grooming/ Hygiene x To wash hands and brush teeth with unilateral UE support on counter top Bathing: Upper Body x Simulated sponge bathing seated level Bathing: Lower Body x Simulated sponge bathing seated level; pt completing figure 4 technique to reach distal BLEs Dressing: Upper Body x To don/doff gown over front Dressing: Lower Body x To manage shorts; seated to thread BLEs and standing to pull up at waist Toileting x For sudha hygiene and shorts management in standing post BM Toilet Transfers x On/Off toilet with use of grab bars Bed Transfer x Sit to stand with no AD Functional Mobility x Completed without AD to/from bathroom; slow pace with mild unsteadiness but no overt LOB. Bed Mobility x Pt sitting in chair Pt left seated with call light in reach and present. Pt informed to call for staff when needing assistance and verbalized understanding. Endurance for Self Care: Fair Patient/Family Education: Instructed Patient in roles of therapy including compensatory strategies for R visual field cut, ADL re-training, safe transfer techniques, safety during functional mobility. DME: With Patients permission ordered no equipment via [employer] Order. [facility] at [phone]. 04/13/2025 6 Clicks Daily Activity OT Help from another person Eating meals 4 Help from another person taking care of personal grooming 3 Help from another person bathing 3 Help from another person putting on and taking off regular upper body clothing 3 Help from another person putting on and taking off regular lower body clothing 3 Help from another person toileting 3 OT 6 Clicks Score 19 6 Click Score Guidelines: 1 - Unable = Total/Dependent Assist 2 - A lot = Max/Moderate Assist 3 - A little = Minimum/Contact Guard Assist/Supervision 4 - Non = Modified [place]/Independent ASSESSMENT: Patient is functionally appropriate for discharge home once medically cleared. Recommend Outpatient Occupational Therapy and PRN assistance from family/caregiver. Will continue to follow while in hospital as appropriate. Goals (to be achieved by discharge from acute care): Patient will perform grooming with Distant supervision Patient will dress upper body with Distant supervision Patient will dress lower body with Distant supervision Patient will perform bed mobility with Distant supervision Patient will perform bathing with Distant supervision Patient will perform toileting with Distant supervision Patient will perform bed transfers with Distant supervision Patient will perform commode transfers with Distant supervision Patient will demonstrate improved right fine motor skills to fasten buttons/zippers Pt will independently use visual scanning strategies to compensate for R visual field loss PLAN: Continue with Plan as per Initial Evaluation. NATALIE Baptiste/Chandrika This clinician collaborated with supervising OT for patient assessment and POC as appropriate. This document is not finalized until reviewed and cosigned by supervising OT. NA = Not Assessed, I = Independent, AK = Modified Independent, Sup = Supervised, Set up = Physical Assistance for Set-up Only, Min = Minimal Assistance, Mod = Moderate Assistance, Max = Max assistance; Dep = Dependent; AROM = Active Range of Motion;PROM=Passive Range of Motion; MMT = Manual Muscle Test; Shld= Shoulder; Add = Adduction; Abd = Abduction [facility] 04-13-2025 Consult note Formatting of th is note is different from the original. OCCUPATIONAL THERAPY PROGRESS SUMMARY Patient seen from 8:41am to 9:20am on 6W unit for 39 minute treatment. SUBJECTIVE: Patient Subjective/Goals I will be done soon. (Re: bathroom) OBJECTIVE: Pain: 0/10 Pain Relief Interventions Implemented: None required; No pain at this time Appearance: Pt seated on toilet at onset with hospital gown donned, tele and IV Behavior: Alert, cooperative, pleasant Cognition: A&Ox3 Vision: R visual field cut UE Status: AROM WFL. Pt reports numbness in L hand at baseline and some difficulty opening small containers bilaterally. Self Care: Assistance Level NA Dep Max Mod Min CG CS DS AK I Set-Up Cues Comment Feeding x To manage beverage seated Grooming/ Hygiene x To wash hands and brush teeth with unilateral UE support on counter top Bathing: Upper Body x Simulated sponge bathing seated level Bathing: Lower Body x Simulated sponge bathing seated level; pt completing figure 4 technique to reach distal BLEs Dressing: Upper Body x To don/doff gown over front Dressing: Lower Body x To manage shorts; seated to thread BLEs and standing to pull up at waist Toileting x For sudha hygiene and shorts management in standing post BM Toilet Transfers x On/Off toilet with use of grab bars Bed Transfer x Sit to stand with no AD Functional Mobility x Completed without AD to/from bathroom; slow pace with mild unsteadiness but no overt LOB. Bed Mobility x Pt sitting in chair Pt left seated with call light in reach and present. Pt informed to call for staff when needing assistance and verbalized understanding. Endurance for Self Care: Fair Patient/Family Education: Instructed Patient in roles of therapy including compensatory strategies for R visual field cut, ADL re-training, safe transfer techniques, safety during functional mobility. DME: With Patients permission ordered no equipment via [employer] Order. If any questions contact [facility] DME Provider at [phone]. 04/13/2025 6 Clicks Daily Activity OT Help from another person Eating meals 4 Help from another person taking care of personal grooming 3 Help from another person bathing 3 Help from another person putting on and taking off regular upper body clothing 3 Help from another person putting on and taking off regular lower body clothing 3 Help from another person toileting 3 OT 6 Clicks Score 19 6 Click Score Guidelines: 1 - Unable = Total/Dependent Assist 2 - A lot = Max/Moderate Assist 3 - A little = Minimum/Contact Guard Assist/Supervision 4 - Non = Modified [place]/Independent ASSESSMENT: Patient is functionally appropriate for discharge home once medically cleared. Recommend Outpatient Occupational Therapy and PRN assistance from family/caregiver. Will continue to follow while in hospital as appropriate. Goals (to be achieved by discharge from acute care): Patient will perform grooming with Distant supervision Patient will dress upper body with Distant supervision Patient will dress lower body with Distant supervision Patient will perform bed mobility with Distant supervision Patient will perform bathing with Distant supervision Patient will perform toileting with Distant supervision Patient will perform bed transfers with Distant supervision Patient will perform commode transfers with Distant supervision Patient will demonstrate improved right fine motor skills to fasten buttons/zippers Pt will independently use visual scanning strategies to compensate for R visual field loss PLAN: Continue with Plan as per Initial Evaluation. NATALIE Baptiste/Chandrika This clinician collaborated with supervising OT for patient assessment and POC as appropriate. This document is not finalized until reviewed and cosigned by supervising OT. NA = Not Assessed, I = Independent, AK = Modified Independent, Sup = Supervised, Set up = Physical Assistance for Set-up Only, Min = Minimal Assistance, Mod = Moderate Assistance, Max = Max assistance; Dep = Dependent; AROM = Active Range of Motion;PROM=Passive Range of Motion; MMT = Manual Muscle Test; Shld= Shoulder; Add = Adduction; Abd = Abduction Cosigned by Leela Gleason OT at 04/13/2025 1:06 PM EDT Associated Order(s): IP OCCUPATIONAL THERAPY SERVICE REQUEST OCCUPATIONAL THERAPY INITIAL EVALUATION Patient seen from 1239 to 1305 on GC 6W unit for 26 minutes. Reason for Admit: R side numbness, confusion Diagnosis: CTA HEAD/NECK CODE STROKE W/PRO IMPRESSION: Age-indeterminate infarct is versus dilated perivascular space in the left basal ganglia. There is no large vessel occlusion. Specifically, there is no intracranial ICA, M1, proximal M2 or basilar artery occlusion. No ICA stenosis. Precautions/Activity Order: Moderate Fall Risk Aspiration Procedures this admit: None Past Medical and Surgical History: Medical History[1] Surgical History[2] SUBJECTIVE: Patient Subjective: I'm more wobbly than I thought I would be. 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 Assistance Available at Home: Lives with who is available 21/02, of note she is recovering from a shoulder injury/surgery currently First floor set up of bed/bath. Stairs down to basement for laundry. Equipment available at home: None OBJECTIVE: Patient Identification: patient verbalizing his/her name and date of . Risks and benefits of occupational therapy: Patient informed of risks and benefits of treatment Appearance: Upright in bed eating, hospital gown, tele, at bedside with pt's permission Alertness: WFL Affect: WNL Cooperation/Behavior: Appropriate dialogue with therapist Communication: WFL, mild word finding deficits? Pain: No pain Self Care: Assistance Level Dep Max Mod Min CG CS DS AK I Set-Up Comment Feeding x Grooming/Hygiene x Stands at sink to wash hands Bathing:UB x Bathing:LB x CGA in standing Dressing:UB x Gown, front to back Dressing: LB x CGA in standing managing briefs Toileting x CGA in standing managing briefs and shorts Transfers/Bed Mobility: Assistance Level Dep Max Mod Min CG CS DS AK I Set-Up Comment Toilet Transfers x Bed Transfers x SEED TECHNICIAN initially after sit to stand from, progresses to CGA/CS for short community distance Bed Mobility x Endurance for Self Care: WFL Static Sitting Balance: WFL Dynamic Sitting Balance: WFL UE Motor: RUE: MMT 5/5, AROM WNL, mild impairment of finger opposition LUE: MMT 5/5, AROM WNL, pt reports baseline numbness in this hand affecting fine motor control Vision/Perception: R field loss Follows Commands: WFL Attention: easily distracted during task Memory: forgetful Problem Solving: Needs further assessment Safety/Judgement: insight beginning to develop Sequencing: WFL Other Specialized Tests: None Patient/Family Education: Instructed patient in roles of therapy. Instructed patient to get up with staff assistance to bathroom or chair. Educated patient/ on recommendation for follow up OP neuro OT. Patient up in bed with call light in reach. DME: With Patients permission ordered no equipment via [employer] Order. If any questions contact [facility] DME Provider at [phone]. 04/12/2025 6 Clicks Daily Activity OT Help from another person Eating meals 4 Help from another person taking care of personal grooming 3 Help from another person bathing 3 Help from another person putting on and taking off regular upper body clothing 3 Help from another person putting on and taking off regular lower body clothing 3 Help from another person toileting 3 OT 6 Clicks Score 19 6 Click Score Guidelines: 1 - Unable = Total/Dependent Assist 2 - A lot = Max/Moderate Assist 3 - A little = Minimum/Contact Guard Assist/Supervision 4 - Non = Modified [place]/Independent ASSESSMENT: Patient is functionally appropriate for discharge home once medically cleared. Will continue to follow patient while in hospital as appropriate. Recommend Outpatient Neuro Occupational Therapy. Recommend PRN family/caregiver assist for IADL and driving. Rehabilitation Potential: Good Problem List: decreased ADLs, impaired upper extremity motor function, decreased functional transfers/mobility, impaired balance, decreased cognition, impaired visual/perceptual skills, and decreased home management tasks/IADLs Goals (to be achieved by discharge from acute care): Patient will perform grooming with Distant supervision Patient will dress upper body with Distant supervision Patient will dress lower body with Distant supervision Patient will perform bed mobility with Distant supervision Patient will perform bathing with Distant supervision Patient will perform toileting with Distant supervision Patient will perform bed transfers with Distant supervision Patient will perform commode transfers with Distant supervision Patient will demonstrate improved right fine motor skills to fasten buttons/zippers Pt will independently use visual scanning strategies to compensate for R visual field loss PLAN: Nash Ferguson will be seen 3-5 times a week. Treatment to include: Functional AROM/Strengthening, coordination / dexterity training, sensory re-education and compensatory retraining, functional mobility training, ADL retraining, functional endurance activities, work simplification / energy conservation, cognitive retraining, adaptive equipment / compensatory strategy training, and patient / family education and discharge planning able to discuss the evaluation findings and treatment plan with the patient/family. The patient/family did participate in the development of plan and goals. Luz Madrigal OT NA = Not Assessed, I = Independent, AK = Modified Independent, Sup = Supervised, Set up = Physical Assistance for Set-up Only, Min = Minimal Assistance, Mod = Moderate Assistance, Max = Max assistance; Dep = Dependent; AROM = Active Range of Motion;PROM=Passive Range of Motion; MMT = Manual Muscle Test; UB = Upper Body; LB = Lower Body [1] Past Medical History: Diagnosis Date Diabetes mellitus, type II (HCC) [2] History reviewed. No pertinent surgical history. Associated Order(s): IP SOCIAL WORK SERVICE REQUEST Stroke Social Work Evaluation Referral: Yes Hx: Per H&P, Nash Ferguson is a 74 year old male w/ PMH Diabetes, right bundle branch block, bilateral hearing loss, bilateral hip replacement, remote history of tobacco abuse presents with significant other for sudden onset right-sided weakness. Patient's life report last known well 6:30 p.m. right before patient took a brief nap; as patient awoke there was noted confusion, right facial droop, visual disturbance as well as right-sided weakness. Patient reports that they had just gotten to [facility] shortly before symptom onset thus EMS was called and patient was airlifted to [facility]. Patient reports to me that whole encounter lasted about 3 hours before symptoms started to gradually offset. Patient reports history of TIAs however there has not been any treatment whatsoever. Patient tells me that he is currently not at his baseline he is still having difficulty with word finding and attests to patient still being in a confused state. Denies any other neurological symptoms that occurred during encounter such as drooling, dysphagia, numbness of any other part of her body, loss of consciousness or seizure activity. Code stroke was called upon patient presentation and pt sent over to stroke tele. Living Situation: Pt resides with spouse Family: Dottie Ferguson ([phone]) is NOK. Children are supportive. Finances: MATIAS Herman DME: maricarmen straight PCP: Josefina Zavaleta, DANCE HALL HOSTESS-SENIOR CONTROLS ANALYST at [facility] Advance Directives: Living will: No Health Care POA: interested in completing Guardian: No Legal Hx: N/A Substance use: Pt reports that he is a former smoker (quit 15 yrs ago). Pt uses ETOH and Marijuana recreationally. Not concerned with current amount of use. Mental health: Hx of anxiety and ADHD; Pt on prescription medications to manage Since the stroke, are you experiencing: Feelings of sadness or hopeless? No Any thought of harming yourself or others? No What are your nursing home goal(s)? Return to independent living Assessment: Pt is a 74 y/o male. Pt lives a home with spouse in a two-story home with first floor set up. There at 3 SEN the home. Pt independent with ADLs at baseline. No AD used at baseline but Pt does own a cane and has access to a walker. Plan: Per interdiciplinary rounds, Pt not medically ready at this time. PT/OT pending at this time. [facility] recommending Outpatient ST. SW to follow for therapy reccs. SW to continue to follow for discharge/social needs as medically appropriate. Supportive Stroke Self-Management 1.Promotion of lifestyle changes that support self-management regimens Reinforcement on: Diet/Nutrition and Medication Compliance 2.Involves Family and Community Structures in the participant's care regimens: Patient given Stroke Education Materials 3.Evaluates barriers to lifestyle changes: None 4.Assessment and documentation of patient's response to recommended lifestyle changes: Patient and family receptive KRISTIN Vargas LSW Inpatient Associate Financial Planner P: [phone] ------- ADDENDUM: PT/OT/[facility] recommending Outpatient Therapy Svs. Pt would like to complete therapy in [place], [place]. Medical team, please provide Pt with Paper Script for: Outpatient Neuro Physical therapy Outpatient Neuro Occupation therapy Outpatient Speech Therapy KRISTIN Vargas LSW Inpatient Associate Financial Planner Associated Order(s): IP [facility] SERVICE REQUEST SPEECH-LANGUAGE PATHOLOGY ACUTE EVAL [id number] Time In: 854 Time Out: 930 Session Duration: 36 minutes Referral received, chart reviewed and history is noted. Patient correctly identified by patient/armband stating name and date of . Date of Admit: 04/11/25 Reason for Consult: Evaluate & Treat History/Diagnosis: Her H&P: Nash Ferguson is a 74 year old male w/ PMH Diabetes, right bundle branch block, bilateral hearing loss, bilateral hip replacement, remote history of tobacco abuse presents with significant other for sudden onset right-sided weakness. Patient's life report last known well 6:30 p.m. right before patient took a brief nap; as patient awoke there was noted confusion, right facial droop, visual disturbance as well as right-sided weakness. Patient reports that they had just gotten to [facility] shortly before symptom onset thus EMS was called and patient was airlifted to [facility]. Patient reports to me that whole encounter lasted about 3 hours before symptoms started to gradually offset. Patient reports history of TIAs however there has not been any treatment whatsoever. Patient tells me that he is currently not at his baseline he is still having difficulty with word finding and attests to patient still being in a confused state. Denies any other neurological symptoms that occurred during encounter such as drooling, dysphagia, numbness of any other part of her body, loss of consciousness or seizure activity. Code stroke was called upon patient presentation and pt sent over to stroke tele. Precautions: Aspiration precautions and Fall precautions FULL CODE Imaging: CT Head IMPRESSION: Age-indeterminate infarct is versus dilated perivascular space in the left basal ganglia. There is no large vessel occlusion. Specifically, there is no intracranial ICA, M1, proximal M2 or basilar artery occlusion. Allergies: Allergies Allergen Reactions Rivaroxaban Rash Prior Level of Functioning: Prior to this admission, patient lived [place]ott[place]. Pt is a retired and reports highest level of education completed as 16 years. Previously independent with ADLs and iADLs. -right-handed Prior Speech Therapy: None identified in [facility]. SUBJECTIVE: Patient subjective/goals: Pt was seen bedside in semi-fowlers position fully awake and alert throughout evaluation. Participation was adequate. gisell present. Pain: Patient denied Scale (if yes): /10 Location: OBJECTIVE: Hearing: Impaired, has hearing aids in place. Required repetition intermittently throughout evaluation. Vision: Impaired, glasses are available Language: Grossly WFL auditory comprehension and verbal expression. Patient communicated at the conversational level, answered wh- questions, and followed multi-step directions independently. However, anomia displayed in conversation. Reading Comprehension: -Reading comprehension is adequate at the basic level. Pt was able to read white board in room. Written Expression: -Functional writing skills (name) are intact Cognition: Orientation: Oriented to all spheres. PERSON: (+) name; (+) ; (+) age PLACE: (+) facility type; (+) hospital name; (+) city TIME: (+) ANASTASIIA; (+) DOM; (+) MAX; (+) YR; (+) TOD SITUATION: (+) Brief Cognitive Status Exam Subtest Raw Score Comments Orientation 88 Time Estimation 0/4 Off by 80 minutes Confrontation Naming Immediate Recall 4/4 (Not calculated) 3/4 (Not calculated) Mental Control 12/12 12 seconds to complete 0 errors at the basic level 0 errors at the moderate level Clock Drawing 4/4 Incidental Recall 8 Semantic cues improved performance to 4/4 Inhibition 16/16 12 seconds to complete 0 omissions 1 commissions Verbal Production 6/6 13 colors/ 30 seconds Total Raw Score (Maximum=58) 54 Classification Level by Age and Education Average (58-52) WMS-IV Older Adult Record Form Memory: -Immediate Recall: 3/4 items -Delayed Recall: 2/4 after 5 minute delay -Working Memory: Intact at the basic level. Impaired in conversation Attention: -Selective: Intact with attention -Sustained: Adequately sustained attention to structured tasks for 15 minutes. -Alternating: Intact for conversation with 2+ people -Initiation: timely -Impulse control: WFL Problem Solving/Reasoning: -Intact for basic level hospital related scenarios including call light function. 100% -adequate for verbal problem solving of moderately-complex functional scenarios including ID of cause, effect, and solution 100% -adequate mental flexibility for generating multiple alternatives -Reasoning skills are intact at the moderate level. 100% Organization: -Adequate for expression of thoughts/ideas at the conversational level -WFL divergent thought organization for concrete category list generation, 13 items/30 seconds -WFL for sequencing of multi-step functional/familiar task Safety/Judgement: Intact Insight: WFL. Patient endorsed physical changes (e.g., UE weakness with writing) and cognitive changes (I.e., My memory has been going for a long time.) Pragmatic Behavior: Appropriate Speech: Cranial Nerve Quick Assessment: CN V - Trigeminal; Motor: intact b/l CN V - Trigeminal; Sensory: intact b/l CN VII - Facial; Motor: intact b/l CN VII - Facial; Sensory: intact b/l CN IX - Glossopharyngeal; Sensory: Did not assess CN IX - Glossopharyngeal & CN X - Vagus; Motor: intact b/L CN XI - Spinal Accessory; Motor: intact b/l CN XII - Hypoglossal; Motor: intact b/l Speech Intelligibility: Overall patient is 99% intelligible to an unfamiliar listener. Speech was halting when anomia occurred x3 during the session. Signs and symptoms of dysarthria were not observed. Voice: Respiration: adequate coordination of respiration and phonation Phonation: adequate quality and vocal intensity Swallowing Current Diet Regular solids ((IDDSI level 7/ Regular) and Thin Liquids (IDDSI level 0) Dentition Edentulous, no dentures present. Dental Repair Adequate Oral Hygiene Adequate Secretion Mngt Independently managing Oxygen Requirement Room air SpO2 100% Temperature 97.7 WBC 6.5 *Information obtained from [facility] Clinical Assessment: [place] Swallow Protocol: State: alert, maintained across session Brief Cognitive Screen: What is your Name?: + Where are you right now?: + What year is it?: + Oral Mechanism Assessment: Tongue ROM: + Facial Symmetry: + Smile: + Pucker: + Lip Closure (cheek puff and hold): + 3-ounce water swallow challenge: Positioning: high fowlers Mode of administration: straw per patient preference Consecutive drinking of 3oz Thin water: uninterrupted Cough/Throat Clear: None . FAIL: Inability to drink the entire 3 ounces (90cc)in sequential swallows due to stopping/starting or patient exhibits over signs of aspiration (I.e. coughing or choking, either during or immediately after completion) . X PASS: Complete and uninterrupted drinking of all 3 ounces (90cc) of water without overt signs of aspiration (I.e. coughing or choking, either during or immediate after completion) *The [place] Swallow Protocol (YSP) is a standardized measure with high high sensitivity(96.5%) and negative prediction value (97.9%). Clinical Assessment Consistencies presented by [facility] Puree: Applesauce via tsp x3 Soft/Regular Solid: 1/2 flip cracker x3 Thin Liquid: Water via straw x5 Self-feeding ability: Adequate Oral Phase -adequate bilabial seal; no anterior spillage, timely mastication, no oral residuals Pharyngeal Phase -No overt s/s of airway compromise exhibited with any solid or liquid trial. RISK ASSESSMENT Dysphagia Risk Factors: Predisposing: None Clinical signs of possible chronic dysphagia: None Precipitating: Stroke/ TIA workup .pmh Factors contributing to aspiration related pulmonary complications: Given pulmonary clearance, immune response, and bacteriological contents patient risk for aspiration related pulmonary complication is currently perceived to be low. Positive Impact Negative impact Pulmonary Clearance Medical Conditions (COPD, CHF, asthma) X Reduced function (reduced mobility/increased dependence for care) X Pulmonary health (h/o smoking, need for supplemental O2, need for inhaled medications) X Immune Response Nutritional Status X Medical co-morbidities X Presence of current infectious process X Bacteriological Contents Dependencies for oral care X Dental care/repair X Oral hygiene X Xerostomia X Diabetes X Acid Suppression therapy (PPI, H2 Blockers) X Education: The patient was educated on the results and recommendations of this evaluation. The patient verbally confirmed comprehension of educated material. ASSESSMENT: Impression: Very mild cognitive-communication impairment. For swallowing, bedside swallow evaluation conducted with administration of [place] Swallow Protocol (YSP) yielding 'pass' indicative of low risk for penetration or aspiration with thin liquids. Additional clinical assessment revealed timely mastication, adequate oral clearance, and no overt s/s of airway compromise. Patient appears to be at a low risk for dysphagia given these findings paired with preserved bacteriological contents, immune response, and pulmonary clearance. Recommend continuing diet of regular solids with thin liquids. At this time, no [facility] swallow services indicated. If a decline is displayed with patient's swallow or pulmonary health, consider re-consulting [facility] service. Assessment of cognition, speech, and language assessment conducted utilizing informal measures. For speech, motor speech abilities were grossly intact and speech intelligibility was adequate. For language, auditory comprehension and verbal expression were grossly intact. However, anomia was displayed intermittently in conversation. For cognition, orientation, attention, and problem solving were intact. Areas of impairment included delayed recall and working memory. Assessment of cognitive function was conducted with a combination of informal and formal assessment including administration of Brief Cognitive Status Exam yielding a total score of 54/58 correlating with average classification for age and educational status. Anticipate deficits in the area of memory will impact patient's safety and function at the moderate-complex level. At this time, the patient would benefit from initiation of individualized cognitive-linguistic therapy. PLAN: Treatment Modalities: Memory Exercises and Naming Exercises Cognitive-Linguistic exercises; Patient Family Education; Compensatory Strategies, further assessment PRN Duration: Duration of inpatient stay Frequency: 1-3x per week Goals: Short Term Goals (to be achieved by discharge from hospital): The patient will recall 4-5 units of functional information immediately and with a 5-10 minute delay with use of strategies and min cues in 3/5 trials to improve encoding and retrieval of new information. The patient will use word retrieval strategies (i.e., semantic feature analysis, circumlocution, etc.) to improve word recall at the sentence level in 8/10 trials. Prognosis: good for goals (+) Cooperation (+) PMH (+) New onset of acute issues (+) Age (-) Cognitive impairments (-) Presence of co-morbidities (-) severity of deficits Recommendations: -Initiate individualized speech therapy POC -Diet: Regular solids ((IDDSI level 7/ Regular) -Liquids: Thin Liquids (IDDSI level 0) -Medications: per patient preference OOB to chair at 90 degree angle when able; otherwise, upright at 60 degrees or greater for all PO intake -Oral care with standard toothbrush BID - Anticipate [facility] services needed in discharge setting; consider OP Outpatient [facility] services indicated to address Cognitive/Communication; General Adult Speech Therapy SP101 - If patient were to return home at this time, would benefit from Intermittent Daily Supervision- Person may be left alone for 3-6 hours or more at a time. Patient would benefit from supervision and intermittent assistance with iADLs (i.e., managing money, preparing meals, scheduling appointments, taking medications) Avril Leon M.S. [facility] Inpatient Speech-Language Pathologist (Tuesday- Tuesday Float, contact primary [facility]HER if unable to reach) Associated Order(s): IP PHYSICAL THERAPY SERVICE REQUEST PHYSICAL THERAPY ACUTE EVALUATION Referral received, chart reviewed. Patient seen on unit: 6W for 30 minutes (eval and tx) Time in: 1239 Time out: 1309 Admit date/time: 04/11/2025 10:33 PM Reason for admit: R weakness, numbness, AMS Symptoms improving. Dx: concern for stroke vs TIA Imaging: IMPRESSION: Age-indeterminate infarct is versus dilated perivascular space in the left basal ganglia. There is no large vessel occlusion. Specifically, there is no intracranial ICA, M1, proximal M2 or basilar artery occlusion. No ICA stenosis. PMH: Diabetes with neuropathy, R bundle branch block. Bilateral hearing loss, remote history of tobacco use, bilateral hip replacements Precautions: moderate falls, full code, aspiration Identification was verified by patient verbalizing his name and date of and patient's I.D. band. Risks and Benefits of physical therapy: Patient informed of risks and benefits of treatment SUBJECTIVE: Patient Subjective: I am more unsteady than I thought. 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 0 steps to bedroom/bathroom Does have an upstairs and basement that patient frequents often but does not have to. Assistance available: lives with . Available 21/02 but she is recovering from recent shoulder surgery (in sling and unable to drive at this time). They report strong community support with quaker and neighbors. 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 Tangential, easily distracted Oriented x 3 Follows 1 step commands consistently with cues Pain: Site/Location: denies ; Pain Scale: 0/10 Pain Relief Interventions Implemented: None required; No pain at this time Passive ROM: Not formally tested however observed WFL for basic level of mobility Strength/Active ROM: BLE 5/5 throughout. Patient with tingling to BLE and BUE secondary to neuropathy. Not presently worse. L extremities are worse than right but patient does have sensation intact Vision: denies blurred or double vision. Patient does have a R visual field cut. Mobility: Supine to long sit: independent Long sit to short sit: independent Sitting balance: Good Sit to stand: close supervision Ambulation/Gait: patient ambulated 10'x1 and 100'x1 with no device with close supervision. Brief moments of CG assistance. Decreased overall speed but grossly WFL. No overt LOB or SOB. Cues to scan to right to manage environment due to visual deficits on right side. Does drift to right slightly but can correct. Stairs: up and down 4 steps with 1 rail with close supervision. Reciprocal pattern. Mildly unsteady with small, self corrected, LOB. Patient returned to room and was seated at EOB at end of session. Call light in reach. at bedside. Endurance: WFL Patient/Family Education: Instructed patient in roles of therapy. Importance of mobility Encouraged assistance at this time Instructed to refrain from driving Roles of outpatient neuro therapies. Instructed to wear shoes for mobility Instructed to scan environment to right side to ensure safety due to field cut. ASSESSMENT: Nash Ferguson is a 74 year old male admitted with R weakness in setting of stroke. Patient demonstrates improvement in symptoms but remains slightly below baseline with coordination, balance and vision impairment. Patient is functionally appropriate to return home with PRN assistance. Recommend outpatient neuro PT follow up. Patient lives in [place], [place]. Please provide paper script for outpatient therapies. Will continue to follow. Problems: Decreased functional mobility Decreased balance Decreased cognition/behavior Impaired safety awareness Impaired vision (R) Rehabilitation Potential: Good Goals (to be achieved by discharge from acute care): Patient will perform sit to/from stand independently. Patient will ambulate 150+ feet independently Patient will ascend/descend 8 stairs with 1 rail with supervision. Patient will increase ROM/Strength/Endurance/Balance to allow for above goals. 04/12/2025 6 Clicks Basic Mobility PT Difficulty turning over in bed 4 Difficulty sitting down and standing up from a chair with arms 3 Difficulty moving from lying on back to sitting on the side of the bed 4 Help from another person moving to and from bed to a chair 3 Help from another person to walk in hospital room 3 Help from another person climbing 3-5 steps with a railing 3 PT 6 Clicks Score 20 6 Click Score Guidelines: 1 - Total = Requires total assistance, or cannot do at all. 2 - A lot = Requires a lot of help (maximun to moderate assistance) Can use assistive devices. 3 - A little = Requires a little help (supervision, minimal assistance) Can use assistive devices. 4 - None = Does not require any help and does the activity independently. Can use assistive devices. PLAN: Frequency: Patient to be seen 3-5 times a week for: Interventions: Functional mobility ROM/Strengthening Discharge planning and equipment ordering as needed Patient/Family education The evaluation findings and treatment plan were discussed with the patient. The patient indicated understanding and agreement with the plan. Nancy Almazan PT, MPT, CSRS NA = Not Assessed, I = Independent, AK = Modified Independent, Sup = Supervised, Set up = Physical Assistance for Set-up Only, Min = Minimal Assistance, Mod = Moderate Assistance, Max = Max assistance; Dep = Dependent; AROM = Active Range of Motion; PROM = Passive Range of Motion; MMT = Manual Muscle Test; LE = Lower Extremity documented in this encounter [facility] 04-13-2025 Note Neurology Floor Serv ice Progress Note HPI: Nash Ferguson is a 74 year old male w/ PMH Diabetes, right bundle branch block, bilateral hearing loss, bilateral hip replacement, remote history of tobacco abuse presents with L basal ganglia stroke. Risk factor workup noted normal echo and A1c. Pt started on DAPT. This AM, pt feels better. Feels his vision is slightly improving but with significant R peripheral vision deficits. He would like to go home. He endorses taking his home statin but stopped Asa d/t bruising. Does not smoke. Vitals: HDS on RA Tele: reading as Afib but I think it's NSR. P wave present prior to every qrs Exam: Labs: A1c 6.6, LDL 148; CT Head w/o: acute infarcts in L inferior parietal lobe and occipital pole; no mass effect Echo: good function; nl EF 65%; no shunt Home Medications: List given to me by Heidi 2 x 30 mg daily Pravastatin 20 mg daily Zoloft 100 mg daily Losartan 25 mg daily Metformin 500 bid Vital sign ranges over the past 24 hours (retrieved 04/13/2025 at 7:41 AM): Tmax (24 hours): 98.2 ???F (36.8 ???C) Pulse Av.6 Min: 53 Max: 83 Systolic (24hrs), Av , Min:104 , Max:134 Diastolic (24hrs), Av, Min:53, Max:83 MAP (mmHg) Av.6 mmHg Min: 72 mmHg Max: 97 mmHg Resp Av Min: 18 Max: 18 SpO2 Av.6 % Min: 95 % Max: 100 % No intake or output data in the 24 hours ending 04/13/25 0741 Current Inpatient Medications Scheduled: clopidogrel, 75 mg, Oral, Daily sertraline, 100 mg, Oral, Daily insulin regular, 0-12 Units, Subcutaneous, 4x Daily AC AND HS aspirin EC, 81 mg, Oral, Daily pravastatin, 20 mg, Oral, At Bedtime enoxaparin, 40 mg, Subcutaneous, Daily Continuous: PRN: PRN medications: acetaminophen Neurological Exam: Sedation: none Level of consciousness: awake, alert Affect: normal Orientation: oriented x3 Attention: normal Language: intact fluency, comprehension occassional difficulty with recollection Visual meek: Bilateral R hemianopsia Neglect: absent Extinction: absent Right-left confusion: absent Cranial Nerves Vision/fundoscopic: n/a Pupils: 3 mm OD, 3 mm OS; reactive to light bilaterally Spontaneous gaze: no deviation Extraocular movements: intact Facial sensation: decreased on R Facial motor function: symmetric forehead wrinkling and smile Hearing: intact to conversation with bilat hearing aids Palate elevation: symmetric Dysarthria: absent Tongue: midline Shoulder shrug: normal Motor Tone: normal Drift: absent Spontaneous abnormal movements: none RUE antigravity, 5/5 full strength, follows commands LUE antigravity, 5/5 full strength, follows commands LLE antigravity, 5/5 full strength, follows commands RLE antigravity, 4/5 full strength, follows commands Sensation Decreased to light touch on R Coordination R: ataxic L: intact on FNF, HTS General Exam General appearance: normal appearing at stated age Head: atraumatic, normocephalic Neck: supple Eyes: no scleral icterus or edema Mucous membranes: moist Abdomen: soft, NT/ND, bowel sounds present Extremities: no deformities; no joint redness; no joint swelling Physical Exam Constitutional: Appearance: Normal appearance. HENT: Head: Normocephalic and atraumatic. Nose: Nose normal. Eyes: Extraocular Movements: Extraocular movements intact. Pupils: Pupils are equal, round, and reactive to light. Cardiovascular: Rate and Rhythm: Normal rate and regular rhythm. Pulses: Normal pulses. Heart sounds: Normal heart sounds. Pulmonary: Effort: Pulmonary effort is normal. Breath sounds: Normal breath sounds. Abdominal: General: Bowel sounds are normal. Palpations: Abdomen is soft. Musculoskeletal: General: Normal range of motion. Cervical back: Normal range of motion. Skin: General: Skin is warm and dry. Psoriatic plaques Capillary Refill: Capillary refill takes less than 2 seconds. Summary of Imaging AND Other Pertinent Studies: CTA HEAD/NECK CODE STROKE W/PRO IMPRESSION: Age-indeterminate infarct is versus dilated perivascular space in the left basal ganglia. There is no large vessel occlusion. Specifically, there is no intracranial ICA, M1, proximal M2 or basilar artery occlusion. No ICA stenosis. Hospital Course: No notes on file A/P: Nash Ferguson is a 74 year old male w/ PMH Diabetes, right bundle branch block, bilateral hearing loss, bilateral hip replacement, remote history of tobacco abuse presents with significant other for sudden onset right-sided weakness. Neuro # L basal ganglia ischemic stroke :: Echo normal :: LDL 148, A1c 6.6 - DAPT x 21d + Asa monotherapy OD - pravastatin + zetia - Neuro Checks Q4 hours - PT / OT / BULLION WEIGHER consults CV #HLD #HTN #RBBB #LVH - Continue pravastatin - SBP goal allow permisive HTN to 220 Pulm #Sleep apnea #hx of transient global amnesia - Compliant on CPAP - Amnesia was related to lack of (more content not included)... [facility] 04-13-2025 Note Neurology Floor Serv ice Progress Note HPI: Nash Ferguson is a 74 year old male w/ PMH Diabetes, right bundle branch block, bilateral hearing loss, bilateral hip replacement, remote history of tobacco abuse presents with L basal ganglia stroke. Risk factor workup noted normal echo and A1c. Pt started on DAPT. This AM, pt feels better. Feels his vision is slightly improving but with significant R peripheral vision deficits. He would like to go home. He endorses taking his home statin but stopped Asa d/t bruising. Does not smoke. Home Medications: List given to me by Annaarchanachristina 2 x 30 mg daily Pravastatin 20 mg daily Zoloft 100 mg daily Losartan 25 mg daily Metformin 500 bid Vital sign ranges over the past 24 hours (retrieved 04/13/2025 at 7:41 AM): Tmax (24 hours): 98.2 ???F (36.8 ???C) Pulse Av.6 Min: 53 Max: 83 Systolic (24hrs), Av , Min:104 , Max:134 Diastolic (24hrs), Av, Min:53, Max:83 MAP (mmHg) Av.6 mmHg Min: 72 mmHg Max: 97 mmHg Resp Av Min: 18 Max: 18 SpO2 Av.6 % Min: 95 % Max: 100 % No intake or output data in the 24 hours ending 04/13/25 0741 Current Inpatient Medications Scheduled: clopidogrel, 75 mg, Oral, Daily sertraline, 100 mg, Oral, Daily insulin regular, 0-12 Units, Subcutaneous, 4x Daily AC AND HS aspirin EC, 81 mg, Oral, Daily pravastatin, 20 mg, Oral, At Bedtime enoxaparin, 40 mg, Subcutaneous, Daily Continuous: PRN: PRN medications: acetaminophen Neurological Exam: Sedation: none Level of consciousness: awake, alert Affect: normal Orientation: oriented x3 Attention: normal Language: intact fluency, comprehension occassional difficulty with recollection Visual meek: Binocular R hemianopsia Neglect: absent Extinction: absent Right-left confusion: absent Cranial Nerves Vision/fundoscopic: n/a Pupils: 3 mm OD, 3 mm OS; reactive to light bilaterally Spontaneous gaze: no deviation Extraocular movements: intact Facial sensation: decreased on R Facial motor function: symmetric forehead wrinkling and smile Hearing: intact to conversation with bilat hearing aids Palate elevation: symmetric Dysarthria: absent Tongue: midline Shoulder shrug: normal Motor Tone: normal Drift: absent Spontaneous abnormal movements: none RUE antigravity, 5/5 full strength, follows commands LUE antigravity, 5/5 full strength, follows commands LLE antigravity, 5/5 full strength, follows commands RLE antigravity, 4/5 full strength, follows commands Sensation Decreased to light touch on R Coordination R: ataxic L: intact on FNF, HTS General Exam General appearance: normal appearing at stated age Head: atraumatic, normocephalic Neck: supple Eyes: no scleral icterus or edema Mucous membranes: moist Abdomen: soft, NT/ND, bowel sounds present Extremities: no deformities; no joint redness; no joint swelling Physical Exam Constitutional: Appearance: Normal appearance. HENT: Head: Normocephalic and atraumatic. Nose: Nose normal. Eyes: Extraocular Movements: Extraocular movements intact. Pupils: Pupils are equal, round, and reactive to light. Cardiovascular: Rate and Rhythm: Normal rate and regular rhythm. Pulses: Normal pulses. Heart sounds: Normal heart sounds. Pulmonary: Effort: Pulmonary effort is normal. Breath sounds: Normal breath sounds. Abdominal: General: Bowel sounds are normal. Palpations: Abdomen is soft. Musculoskeletal: General: Normal range of motion. Cervical back: Normal range of motion. Skin: General: Skin is warm and dry. Psoriatic plaques Capillary Refill: Capillary refill takes less than 2 seconds. Summary of Imaging AND Other Pertinent Studies: CTA HEAD/NECK CODE STROKE W/PRO IMPRESSION: Age-indeterminate infarct is versus dilated perivascular space in the left basal ganglia. There is no large vessel occlusion. Specifically, there is no intracranial ICA, M1, proximal M2 or basilar artery occlusion. No ICA stenosis. Hospital Course: No notes on file A/P: Nash Ferguson is a 74 year old male w/ PMH Diabetes, right bundle branch block, bilateral hearing loss, bilateral hip replacement, remote history of tobacco abuse presents with significant other for sudden onset right-sided weakness. Neuro # Acute L occipital pole ischemic stroke # Prior L basal ganglia ischemic stroke :: Echo normal :: LDL 148, A1c 6.6 :: CTH small acute-subacute infarcts in L occipital pole wit trace petechial hemorrhage :: exceedingly small subclinical hemorrhagic conversion - DAPT x 21d + Asa monotherapy OD - pravastatin + zetia - event monitor on discharge - Neuro Checks Q4 hours - PT / OT / BULLION WEIGHER consults CV #HLD #HTN #RBBB #LVH - Continue pravastatin - SBP goal allow permisive HTN to 220 Pulm #Sleep apnea #hx of transient global amnesia - Compliant on CPAP - Amnesia was related to lack of sleep GI/Endo/ #Diabetes, controlled (more content not included)... [facility] 04-13-2025 History of Present illness Narrative Formatting of this note is different fro m the original. Images from the original note were not included. Neurology Floor Service Progress Note HPI: Nash Ferguson is a 74 year old male w/ PMH Diabetes, right bundle branch block, bilateral hearing loss, bilateral hip replacement, remote history of tobacco abuse presents with L basal ganglia stroke. Risk factor workup noted normal echo and A1c. Pt started on DAPT. This AM, pt feels better. Feels his vision is slightly improving but with significant R peripheral vision deficits. He would like to go home. He endorses taking his home statin but stopped Asa d/t bruising. Does not smoke. Home Medications: List given to me by Heidi 2 x 30 mg daily Pravastatin 20 mg daily Zoloft 100 mg daily Losartan 25 mg daily Metformin 500 bid Vital sign ranges over the past 24 hours (retrieved 04/13/2025 at 7:41 AM): Tmax (24 hours): 98.2 F (36.8 C) Pulse Av.6 Min: 53 Max: 83 Systolic (24hrs), Av , Min:104 , Max:134 Diastolic (24hrs), Av, Min:53, Max:83 MAP (mmHg) Av.6 mmHg Min: 72 mmHg Max: 97 mmHg Resp Av Min: 18 Max: 18 SpO2 Av.6 % Min: 95 % Max: 100 % No intake or output data in the 24 hours ending 04/13/25 0741 Current Inpatient Medications Scheduled: clopidogrel, 75 mg, Oral, Daily sertraline, 100 mg, Oral, Daily insulin regular, 0-12 Units, Subcutaneous, 4x Daily AC & HS aspirin EC, 81 mg, Oral, Daily pravastatin, 20 mg, Oral, At Bedtime enoxaparin, 40 mg, Subcutaneous, Daily Continuous: PRN: PRN medications: acetaminophen Neurological Exam: Sedation: none Level of consciousness: awake, alert Affect: normal Orientation: oriented x3 Attention: normal Language: intact fluency, comprehension occassional difficulty with recollection Visual meek: Binocular R hemianopsia Neglect: absent Extinction: absent Right-left confusion: absent Cranial Nerves Vision/fundoscopic: n/a Pupils: 3 mm OD, 3 mm OS; reactive to light bilaterally Spontaneous gaze: no deviation Extraocular movements: intact Facial sensation: decreased on R Facial motor function: symmetric forehead wrinkling and smile Hearing: intact to conversation with bilat hearing aids Palate elevation: symmetric Dysarthria: absent Tongue: midline Shoulder shrug: normal Motor Tone: normal Drift: absent Spontaneous abnormal movements: none RUE antigravity, 5/5 full strength, follows commands LUE antigravity, 5/5 full strength, follows commands LLE antigravity, 5/5 full strength, follows commands RLE antigravity, 4/5 full strength, follows commands Sensation Decreased to light touch on R Coordination R: ataxic L: intact on FNF, HTS General Exam General appearance: normal appearing at stated age Head: atraumatic, normocephalic Neck: supple Eyes: no scleral icterus or edema Mucous membranes: moist Abdomen: soft, NT/ND, bowel sounds present Extremities: no deformities; no joint redness; no joint swelling Physical Exam Constitutional: Appearance: Normal appearance. HENT: Head: Normocephalic and atraumatic. Nose: Nose normal. Eyes: Extraocular Movements: Extraocular movements intact. Pupils: Pupils are equal, round, and reactive to light. Cardiovascular: Rate and Rhythm: Normal rate and regular rhythm. Pulses: Normal pulses. Heart sounds: Normal heart sounds. Pulmonary: Effort: Pulmonary effort is normal. Breath sounds: Normal breath sounds. Abdominal: General: Bowel sounds are normal. Palpations: Abdomen is soft. Musculoskeletal: General: Normal range of motion. Cervical back: Normal range of motion. Skin: General: Skin is warm and dry. Psoriatic plaques Capillary Refill: Capillary refill takes less than 2 seconds. Summary of Imaging & Other Pertinent Studies: CTA HEAD/NECK CODE STROKE W/PRO IMPRESSION: Age-indeterminate infarct is versus dilated perivascular space in the left basal ganglia. There is no large vessel occlusion. Specifically, there is no intracranial ICA, M1, proximal M2 or basilar artery occlusion. No ICA stenosis. Hospital Course: No notes on file A/P: Nash Ferguson is a 74 year old male w/ PMH Diabetes, right bundle branch block, bilateral hearing loss, bilateral hip replacement, remote history of tobacco abuse presents with significant other for sudden onset right-sided weakness. Neuro # Acute L occipital pole ischemic stroke # Prior L basal ganglia ischemic stroke :: Echo normal :: LDL 148, A1c 6.6 - DAPT x 21d + Asa monotherapy OD - pravastatin + zetia - Neuro Checks Q4 hours - PT / OT / BULLION WEIGHER consults CV #HLD #HTN #RBBB #LVH - Continue pravastatin - SBP goal allow permisive HTN to 220 Pulm #Sleep apnea #hx of transient global amnesia - Compliant on CPAP - Amnesia was related to lack of sleep GI/Endo/ #Diabetes, controlled :: A1c 6.6 - Dysphagia screen prior to PO intake - SSI Skin #Psoriatic arthritis - Controlled L/T: PIVs PPX: SCDs. lovenox as above. Code: full code Contact: Significant other, DOTTIE FERGUSON (Spouse) Dispo: Pending PT/PT recommendations HOTBED LEVER OPERATOR consult Incidental Findings: N/a F/u needs: PCP, Neurology, General Cardiology, I personally examined this high risk patient; personally evaluated patient data, laboratory data and imaging; made clinical decisions informed by patient specifics, current literature and guidelines; and updated the patient and care team. I reviewed all the data with the on-service attending Dr. Hoskins. Total time spent reviewing chart and images, obtaining clinical history, examining the patient, documenting and communicatin minutes. Haile Cadena MD IM PGY-3 04/12/2539 Dysphagia Screen: If NOT Alert, Keep Patient NPO. Awake & Alert, Sitting Upright (10 minutes)? Alert and able to sit upright x 10 minutes Dysphagia Pre-Feeding Assessment: If Any YES Answers, Keep Patient NPO. Weak or Abnormal Voice? No Drooling? No Slurred Speech? No Weak Cough/Unable to Cough? No Yes Answers? No Dysphagia Feeding Screening: If Any YES Answers, Keep Patient NPO. Absent Swallow? No Coughing / Choking? No Voice Change? No Difficulty Swallowing? No Yes Answers? No Dysphagia Meal Observation: If Any YES Answers, Keep Patient NPO. Absent Swallow? No Coughing / Choking? No Voice Change? No Difficulty Swallowing? No Poor Judgment? No Pocketing Food? No Unable to Contain Food / Liquid? No Yes Answers? No Dysphagia Self Feeding Assessment Difficulty Feeding Self? No 04/12/2539 Admit Note (Completed by Receiving Unit) Arrival Time: 39 Arrived to: [address] [facility] A Arrived from: ED Mode of Transport Cart Transported by: JULIO BLOOD Report Received From: Per Patient chart documented in this encounter [facility] 04-12-2025 Consult note Associated Order (s): IP OCCUPATIONAL THERAPY SERVICE REQUEST OCCUPATIONAL THERAPY INITIAL EVALUATION Patient seen from 1239 to 1305 on 6W unit for 26 minutes. Reason for Admit: R side numbness, confusion Diagnosis: CTA HEAD/NECK CODE STROKE W/PRO IMPRESSION: Age-indeterminate infarct is versus dilated perivascular space in the left basal ganglia. There is no large vessel occlusion. Specifically, there is no intracranial ICA, M1, proximal M2 or basilar artery occlusion. No ICA stenosis. Precautions/Activity Order: Moderate Fall Risk Aspiration Procedures this admit: None Past Medical and Surgical History: Medical History[1] Surgical History[2] SUBJECTIVE: Patient Subjective: I'm more wobbly than I thought I would be. 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 Assistance Available at Home: Lives with who is available 21/02, of note she is recovering from a shoulder injury/surgery currently First floor set up of bed/bath. Stairs down to basement for laundry. Equipment available at home: None OBJECTIVE: Patient Identification: patient verbalizing his/her name and date of . Risks and benefits of occupational therapy: Patient informed of risks and benefits of treatment Appearance: Upright in bed eating, hospital gown, tele, at bedside with pt's permission Alertness: WFL Affect: WNL Cooperation/Behavior: Appropriate dialogue with therapist Communication: WFL, mild word finding deficits? Pain: No pain Self Care: Assistance Level Dep Max Mod Min CG CS DS AK I Set-Up Comment Feeding x Grooming/Hygiene x Stands at sink to wash hands Bathing:UB x Bathing:LB x CGA in standing Dressing:UB x Gown, front to back Dressing: LB x CGA in standing managing briefs Toileting x CGA in standing managing briefs and shorts Transfers/Bed Mobility: Assistance Level Dep Max Mod Min CG CS DS AK I Set-Up Comment Toilet Transfers x Bed Transfers x SEED TECHNICIAN initially after sit to stand from, progresses to CGA/CS for short community distance Bed Mobility x Endurance for Self Care: WFL Static Sitting Balance: WFL Dynamic Sitting Balance: WFL UE Motor: RUE: MMT 5/5, AROM WNL, mild impairment of finger opposition LUE: MMT 5/5, AROM WNL, pt reports baseline numbness in this hand affecting fine motor control Vision/Perception: R field loss Follows Commands: WFL Attention: easily distracted during task Memory: forgetful Problem Solving: Needs further assessment Safety/Judgement: insight beginning to develop Sequencing: WFL Other Specialized Tests: None Patient/Family Education: Instructed patient in roles of therapy. Instructed patient to get up with staff assistance to bathroom or chair. Educated patient/ on recommendation for follow up OP neuro OT. Patient up in bed with call light in reach. DME: With Patients permission ordered no equipment via [employer] Order. If any questions contact [facility] DME Provider at [phone]. 04/12/2025 6 Clicks Daily Activity OT Help from another person Eating meals 4 Help from another person taking care of personal grooming 3 Help from another person bathing 3 Help from another person putting on and taking off regular upper body clothing 3 Help from another person putting on and taking off regular lower body clothing 3 Help from another person toileting 3 OT 6 Clicks Score 19 6 Click Score Guidelines: 1 - Unable = Total/Dependent Assist 2 - A lot = Max/Moderate Assist 3 - A little = Minimum/Contact Guard Assist/Supervision 4 - Non = Modified [place]/Independent ASSESSMENT: Patient is functionally appropriate for discharge home once medically cleared. Will continue to follow patient while in hospital as appropriate. Recommend Outpatient Neuro Occupational Therapy. Recommend PRN family/caregiver assist for IADL and driving. Rehabilitation Potential: Good Problem List: decreased ADLs, impaired upper extremity motor function, decreased functional transfers/mobility, impaired balance, decreased cognition, impaired visual/perceptual skills, and decreased home management tasks/IADLs Goals (to be achieved by discharge from acute care): Patient will perform grooming with Distant supervision Patient will dress upper body with Distant supervision Patient will dress lower body with Distant supervision Patient will perform bed mobility with Distant supervision Patient will perform bathing with Distant supervision Patient will perform toileting with Distant supervision Patient will perform bed transfers with Distant supervision Patient will perform commode transfers with Distant supervision Patient will demonstrate improved right fine motor skills to fasten buttons/zippers Pt will independently use visual scanning strategies to compensate for R visual field loss PLAN: Nash Ferguson will be seen 3-5 times a week. Treatment to include: Functional AROM/Strengthening, coordination / dexterity training, sensory re-education and compensatory retraining, functional mobility training, ADL retraining, functional endurance activities, work simplification / energy conservation, cognitive retraining, adaptive equipment / compensatory strategy training, and patient / family education and discharge planning able to discuss the evaluation findings and treatment plan with the patient/family. The patient/family did participate in the development of plan and goals. Luz Madrigal OT NA = Not Assessed, I = Independent, AK = Modified Independent, Sup = Supervised, Set up = Physical Assistance for Set-up Only, Min = Minimal Assistance, Mod = Moderate Assistance, Max = Max assistance; Dep = Dependent; AROM = Active Range of Motion;PROM=Passive Range of Motion; MMT = Manual Muscle Test; UB = Upper Body; LB = Lower Body [1] Past Medical History: Diagnosis Date Diabetes mellitus, type II (HCC) [2] History reviewed. No pertinent surgical history. [facility] 04-12-2025 Note OCCUPATIONAL THERAPY INITIAL EVALUATION Patient seen from 1239 to 1305 on [facility] 6W unit for 26 minutes. Reason for Admit: R side numbness, confusion Diagnosis: CTA HEAD/NECK CODE STROKE W/PRO IMPRESSION: Age-indeterminate infarct is versus dilated perivascular space in the left basal ganglia. There is no large vessel occlusion. Specifically, there is no intracranial ICA, M1, proximal M2 or basilar artery occlusion. No ICA stenosis. Precautions/Activity Order: Moderate Fall Risk Aspiration Procedures this admit: None Past Medical and Surgical History: Medical History[1] Surgical History[2] SUBJECTIVE: Patient Subjective: I'm more wobbly than I thought I would be. 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 Assistance Available at Home: Lives with who is available 21/02, of note she is recovering from a shoulder injury/surgery currently First floor set up of bed/bath. Stairs down to basement for laundry. Equipment available at home: None OBJECTIVE: Patient Identification: patient verbalizing his/her name and date of . Risks and benefits of occupational therapy: Patient informed of risks and benefits of treatment Appearance: Upright in bed eating, hospital gown, tele, at bedside with pt's permission Alertness: WFL Affect: WNL Cooperation/Behavior: Appropriate dialogue with therapist Communication: WFL, mild word finding deficits? Pain: No pain Self Care: Assistance Level Dep Max Mod Min CG CS DS AK I Set-Up Comment Feeding x Grooming/Hygiene x Stands at sink to wash hands Bathing:UB x Bathing:LB x CGA in standing Dressing:UB x Gown, front to back Dressing: LB x CGA in standing managing briefs Toileting x CGA in standing managing briefs and shorts Transfers/Bed Mobility: Assistance Level Dep Max Mod Min CG CS DS AK I Set-Up Comment Toilet Transfers x Bed Transfers x SEED TECHNICIAN initially after sit to stand from, progresses to CGA/CS for short community distance Bed Mobility x Endurance for Self Care: WFL Static Sitting Balance: WFL Dynamic Sitting Balance: WFL UE Motor: RUE: MMT 5/5, AROM WNL, mild impairment of finger opposition LUE: MMT 5/5, AROM WNL, pt reports baseline numbness in this hand affecting fine motor control Vision/Perception: R field loss Follows Commands: WFL Attention: easily distracted during task Memory: forgetful Problem Solving: Needs further assessment Safety/Judgement: insight beginning to develop Sequencing: WFL Other Specialized Tests: None Patient/Family Education: Instructed patient in roles of therapy. Instructed patient to get up with staff assistance to bathroom or chair. Educated patient/ on recommendation for follow up OP neuro OT. Patient up in bed with call light in reach. DME: With Patients permission ordered no equipment via [employer] Order. [facility] at [phone]. 04/12/2025 6 Clicks Daily Activity OT Help from another person Eating meals 4 Help from another person taking care of personal grooming 3 Help from another person bathing 3 Help from another person putting on and taking off regular upper body clothing 3 Help from another person putting on and taking off regular lower body clothing 3 Help from another person toileting 3 OT 6 Clicks Score 19 6 Click Score Guidelines: 1 - Unable = Total/Dependent Assist 2 - A lot = Max/Moderate Assist 3 - A little = Minimum/Contact Guard Assist/Supervision 4 - Non = Modified [place]/Independent ASSESSMENT: Patient is functionally appropriate for discharge home once medically cleared. Will continue to follow patient while in hospital as appropriate. Recommend Outpatient Neuro Occupational Therapy. Recommend PRN family/caregiver assist for IADL and driving. Rehabilitation Potential: Good Problem List: decreased ADLs, impaired upper extremity motor function, decreased functional transfers/mobility, impaired balance, decreased cognition, impaired visual/perceptual skills, and decreased home management tasks/IADLs Goals (to be achieved by discharge from acute care): Patient will perform grooming with Distant supervision Patient will dress upper body with Distant supervision Patient will dress lower body with Distant supervision Patient will perform bed mobility with Distant supervision Patient will perform bathing with Distant supervision Patient will perform toileting with Distant supervision Patient will perform bed transfers with Distant supervision Patient will perform commode transfers with Distant supervision Patient will demonstrate improved right fine motor skills to fasten buttons/zippers Pt will independently use visual scanning strategies to compensate for R visual field loss PLAN: Nash Ferguson will be seen 3-5 times a week. Treatment to include: Functional AROM/Streng (more content not included)... [facility] 04-12-2025 Consult note Associated Order (s): IP SOCIAL WORK SERVICE REQUEST Stroke Social Work Evaluation Referral: Yes Hx: Per H&P, Nash Ferguson is a 74 year old male w/ PMH Diabetes, right bundle branch block, bilateral hearing loss, bilateral hip replacement, remote history of tobacco abuse presents with significant other for sudden onset right-sided weakness. Patient's life report last known well 6:30 p.m. right before patient took a brief nap; as patient awoke there was noted confusion, right facial droop, visual disturbance as well as right-sided weakness. Patient reports that they had just gotten to [facility] shortly before symptom onset thus EMS was called and patient was airlifted to [facility]. Patient reports to me that whole encounter lasted about 3 hours before symptoms started to gradually offset. Patient reports history of TIAs however there has not been any treatment whatsoever. Patient tells me that he is currently not at his baseline he is still having difficulty with word finding and attests to patient still being in a confused state. Denies any other neurological symptoms that occurred during encounter such as drooling, dysphagia, numbness of any other part of her body, loss of consciousness or seizure activity. Code stroke was called upon patient presentation and pt sent over to stroke tele. Living Situation: Pt resides with spouse Family: Dottie Ferguson ([phone]) is NOK. Children are supportive. Finances: Annabelle GARCIA, [email or web address] DME: cane straight PCP: Josefina Zavaleta, DANCE HALL HOSTESS-SENIOR CONTROLS ANALYST at [facility] Advance Directives: Living will: No Health Care POA: interested in completing Guardian: No Legal Hx: N/A Substance use: Pt reports that he is a former smoker (quit 15 yrs ago). Pt uses ETOH and Marijuana recreationally. Not concerned with current amount of use. Mental health: Hx of anxiety and ADHD; Pt on prescription medications to manage Since the stroke, are you experiencing: Feelings of sadness or hopeless? No Any thought of harming yourself or others? No What are your nursing home goal(s)? Return to independent living Assessment: Pt is a 74 y/o male. Pt lives a home with spouse in a two-story home with first floor set up. There at 3 SEN the home. Pt independent with ADLs at baseline. No AD used at baseline but Pt does own a cane and has access to a walker. Plan: Per interdiciplinary rounds, Pt not medically ready at this time. PT/OT pending at this time. BULLION WEIGHER recommending Outpatient ST. SW to follow for therapy reccs. SW to continue to follow for discharge/social needs as medically appropriate. Supportive Stroke Self-Management 1.Promotion of lifestyle changes that support self-management regimens Reinforcement on: Diet/Nutrition and Medication Compliance 2.Involves Family and Community Structures in the participant's care regimens: Patient given Stroke Education Materials 3.Evaluates barriers to lifestyle changes: None 4.Assessment and documentation of patient's response to recommended lifestyle changes: Patient and family receptive KRISTIN Vargas, HOTBED LEVER OPERATOR Inpatient Associate Financial Planner P: [phone] ------- ADDENDUM: PT/OT/BULLION WEIGHER recommending Outpatient Therapy Svs. Pt would like to complete therapy in [place], [place]. Medical team, please provide Pt with Paper Script for: Outpatient Neuro Physical therapy Outpatient Neuro Occupation therapy Outpatient Speech Therapy KRISTIN Vargas, BRIONNA Inpatient Associate Financial Planner [facility] 04-12-2025 Note Stroke Social Work E valuation Referral: Yes Hx: Per H AND P, Nash Ferguson is a 74 year old male w/ PMH Diabetes, right bundle branch block, bilateral hearing loss, bilateral hip replacement, remote history of tobacco abuse presents with significant other for sudden onset right-sided weakness. Patient's life report last known well 6:30 p.m. right before patient took a brief nap; as patient awoke there was noted confusion, right facial droop, visual disturbance as well as right-sided weakness. Patient reports that they had just gotten to [facility] shortly before symptom onset thus EMS was called and patient was airlifted to [facility]. Patient reports to me that whole encounter lasted about 3 hours before symptoms started to gradually offset. Patient reports history of TIAs however there has not been any treatment whatsoever. Patient tells me that he is currently not at his baseline he is still having difficulty with word finding and attests to patient still being in a confused state. Denies any other neurological symptoms that occurred during encounter such as drooling, dysphagia, numbness of any other part of her body, loss of consciousness or seizure activity. Code stroke was called upon patient presentation and pt sent over to stroke tele. Living Situation: Pt resides with spouse Family: Dottie Ferguson ([phone]) is NOK. Children are supportive. Finances: MATIAS Herman DME: maricarmen stephens PCP: Josefina Zavaleta APRN-BETTY at [facility] Advance Directives: Living will: No Health Care POA: interested in completing Guardian: No Legal Hx: N/A Substance use: Pt reports that he is a former smoker (quit 15 yrs ago). Pt uses ETOH and Marijuana recreationally. Not concerned with current amount of use. Mental health: Hx of anxiety and ADHD; Pt on prescription medications to manage Since the stroke, are you experiencing: Feelings of sadness or hopeless? No Any thought of harming yourself or others? No What are your termite control servicer goal(s)? Return to independent living Assessment: Pt is a 74 y/o male. Pt lives a home with spouse in a two-story home with first floor set up. There at 3 SEN the home. Pt independent with ADLs at baseline. No AD used at baseline but Pt does own a cane and has access to a walker. Plan: Per interdiciplinary rounds, Pt not medically ready at this time. PT/OT pending at this time. BULLION WEIGHER recommending Outpatient ST. SW to follow for therapy reccs. SW to continue to follow for discharge/social needs as medically appropriate. Supportive Stroke Self-Management 1.Promotion of lifestyle changes that support self-management regimens Reinforcement on: Diet/Nutrition and Medication Compliance 2.Involves Family and Community Structures in the participant's care regimens: Patient given Stroke Education Materials 3.Evaluates barriers to lifestyle changes: None 4.Assessment and documentation of patient's response to recommended lifestyle changes: Patient and family receptive Zo??? KRISTIN Spencer, BRIONNA Inpatient Associate Financial Planner P: [phone] ------- ADDENDUM: PT/OT/BULLION WEIGHER recommending Outpatient Therapy Svs. Pt would like to complete therapy in [place], [place]. Medical team, please provide Pt with Paper Script for: Outpatient Neuro Physical therapy Outpatient Neuro Occupation therapy Outpatient Speech Therapy Zo??? KRISTIN Spencer, BRIONNA Inpatient Associate Financial Planner [facility] 04-12-2025 Consult note Associated Order (s): IP BULLION WEIGHER SERVICE REQUEST SPEECH-LANGUAGE PATHOLOGY ACUTE EVAL AC6 Time In: 854 Time Out: 930 Session Duration: 36 minutes Referral received, chart reviewed and history is noted. Patient correctly identified by patient/armband stating name and date of . Date of Admit: 04/11/25 Reason for Consult: Evaluate & Treat History/Diagnosis: Her H&P: Nash Ferguson is a 74 year old male w/ PMH Diabetes, right bundle branch block, bilateral hearing loss, bilateral hip replacement, remote history of tobacco abuse presents with significant other for sudden onset right-sided weakness. Patient's life report last known well 6:30 p.m. right before patient took a brief nap; as patient awoke there was noted confusion, right facial droop, visual disturbance as well as right-sided weakness. Patient reports that they had just gotten to [facility] shortly before symptom onset thus EMS was called and patient was airlifted to [facility]. Patient reports to me that whole encounter lasted about 3 hours before symptoms started to gradually offset. Patient reports history of TIAs however there has not been any treatment whatsoever. Patient tells me that he is currently not at his baseline he is still having difficulty with word finding and attests to patient still being in a confused state. Denies any other neurological symptoms that occurred during encounter such as drooling, dysphagia, numbness of any other part of her body, loss of consciousness or seizure activity. Code stroke was called upon patient presentation and pt sent over to stroke tele. Precautions: Aspiration precautions and Fall precautions FULL CODE Imaging: CT Head IMPRESSION: Age-indeterminate infarct is versus dilated perivascular space in the left basal ganglia. There is no large vessel occlusion. Specifically, there is no intracranial ICA, M1, proximal M2 or basilar artery occlusion. Allergies: Allergies Allergen Reactions Rivaroxaban Rash Prior Level of Functioning: Prior to this admission, patient lived [place]. Pt is a retired and reports highest level of education completed as 16 years. Previously independent with ADLs and iADLs. -right-handed Prior Speech Therapy: None identified in [facility]. SUBJECTIVE: Patient subjective/goals: Pt was seen bedside in semi-fowlers position fully awake and alert throughout evaluation. Participation was adequate. gisell present. Pain: Patient denied Scale (if yes): /10 Location: OBJECTIVE: Hearing: Impaired, has hearing aids in place. Required repetition intermittently throughout evaluation. Vision: Impaired, glasses are available Language: Grossly WFL auditory comprehension and verbal expression. Patient communicated at the conversational level, answered wh- questions, and followed multi-step directions independently. However, anomia displayed in conversation. Reading Comprehension: -Reading comprehension is adequate at the basic level. Pt was able to read white board in room. Written Expression: -Functional writing skills (name) are intact Cognition: Orientation: Oriented to all spheres. PERSON: (+) name; (+) ; (+) age PLACE: (+) facility type; (+) hospital name; (+) city TIME: (+) ANASTASIIA; (+) DOM; (+) MAX; (+) YR; (+) TOD SITUATION: (+) Brief Cognitive Status Exam Subtest Raw Score Comments Orientation 03/08 Time Estimation 0/4 Off by 80 minutes Confrontation Naming Immediate Recall 4/4 (Not calculated) 3/4 (Not calculated) Mental Control 07/12 12 seconds to complete 0 errors at the basic level 0 errors at the moderate level Clock Drawing 11/02 Incidental Recall 11/06 Semantic cues improved performance to 4/ Inhibition 1616 12 seconds to complete 0 omissions 1 commissions Verbal Production 01/04 13 colors/ 30 seconds Total Raw Score (Maximum=58) 54 Classification Level by Age and Education Average (58-52) WMS-IV Older Adult Record Form Memory: -Immediate Recall: 3/4 items -Delayed Recall: 2/4 after 5 minute delay -Working Memory: Intact at the basic level. Impaired in conversation Attention: -Selective: Intact with attention -Sustained: Adequately sustained attention to structured tasks for 15 minutes. -Alternating: Intact for conversation with 2+ people -Initiation: timely -Impulse control: WFL Problem Solving/Reasoning: -Intact for basic level hospital related scenarios including call light function. 100% -adequate for verbal problem solving of moderately-complex functional scenarios including ID of cause, effect, and solution 100% -adequate mental flexibility for generating multiple alternatives -Reasoning skills are intact at the moderate level. 100% Organization: -Adequate for expression of thoughts/ideas at the conversational level -WFL divergent thought organization for concrete category list generation, 13 items/30 seconds -WFL for sequencing of multi-step functional/familiar task Safety/Judgement: Intact Insight: WFL. Patient endorsed physical changes (e.g., UE weakness with writing) and cognitive changes (I.e., My memory has been going for a long time.) Pragmatic Behavior: Appropriate Speech: Cranial Nerve Quick Assessment: CN V - Trigeminal; Motor: intact b/l CN V - Trigeminal; Sensory: intact b/l CN VII - Facial; Motor: intact b/l CN VII - Facial; Sensory: intact b/l CN IX - Glossopharyngeal; Sensory: Did not assess CN IX - Glossopharyngeal & CN X - Vagus; Motor: intact b/L CN XI - Spinal Accessory; Motor: intact b/l CN XII - Hypoglossal; Motor: intact b/l Speech Intelligibility: Overall patient is 99% intelligible to an unfamiliar listener. Speech was halting when anomia occurred x3 during the session. Signs and symptoms of dysarthria were not observed. Voice: Respiration: adequate coordination of respiration and phonation Phonation: adequate quality and vocal intensity Swallowing Current Diet Regular solids ((IDDSI level 7/ Regular) and Thin Liquids (IDDSI level 0) Dentition Edentulous, no dentures present. Dental Repair Adequate Oral Hygiene Adequate Secretion Mngt Independently managing Oxygen Requirement Room air SpO2 100% Temperature 97.7 WBC 6.5 *Information obtained from [facility] Clinical Assessment: [place] Swallow Protocol: State: alert, maintained across session Brief Cognitive Screen: What is your Name?: + Where are you right now?: + What year is it?: + Oral Mechanism Assessment: Tongue ROM: + Facial Symmetry: + Smile: + Pucker: + Lip Closure (cheek puff and hold): + 3-ounce water swallow challenge: Positioning: high fowlers Mode of administration: straw per patient preference Consecutive drinking of 3oz Thin water: uninterrupted Cough/Throat Clear: None . FAIL: Inability to drink the entire 3 ounces (90cc)in sequential swallows due to stopping/starting or patient exhibits over signs of aspiration (I.e. coughing or choking, either during or immediately after completion) . X PASS: Complete and uninterrupted drinking of all 3 ounces (90cc) of water without overt signs of aspiration (I.e. coughing or choking, either during or immediate after completion) *The [place] Swallow Protocol (YSP) is a standardized measure with high high sensitivity(96.5%) and negative prediction value (97.9%). Clinical Assessment Consistencies presented by BULLION WEIGHER Puree: Applesauce via tsp x3 Soft/Regular Solid: 1/2 flip cracker x3 Thin Liquid: Water via straw x5 Self-feeding ability: Adequate Oral Phase -adequate bilabial seal; no anterior spillage, timely mastication, no oral residuals Pharyngeal Phase -No overt s/s of airway compromise exhibited with any solid or liquid trial. RISK ASSESSMENT Dysphagia Risk Factors: Predisposing: None Clinical signs of possible chronic dysphagia: None Precipitating: Stroke/ TIA workup .pmh Factors contributing to aspiration related pulmonary complications: Given pulmonary clearance, immune response, and bacteriological contents patient risk for aspiration related pulmonary complication is currently perceived to be low. Positive Impact Negative impact Pulmonary Clearance Medical Conditions (COPD, CHF, asthma) X Reduced function (reduced mobility/increased dependence for care) X Pulmonary health (h/o smoking, need for supplemental O2, need for inhaled medications) X Immune Response Nutritional Status X Medical co-morbidities X Presence of current infectious process X Bacteriological Contents Dependencies for oral care X Dental care/repair X Oral hygiene X Xerostomia X Diabetes X Acid Suppression therapy (PPI, H2 Blockers) X Education: The patient was educated on the results and recommendations of this evaluation. The patient verbally confirmed comprehension of educated material. ASSESSMENT: Impression: Very mild cognitive-communication impairment. For swallowing, bedside swallow evaluation conducted with administration of [place] Swallow Protocol (YSP) yielding 'pass' indicative of low risk for penetration or aspiration with thin liquids. Additional clinical assessment revealed timely mastication, adequate oral clearance, and no overt s/s of airway compromise. Patient appears to be at a low risk for dysphagia given these findings paired with preserved bacteriological contents, immune response, and pulmonary clearance. Recommend continuing diet of regular solids with thin liquids. At this time, no BULLION WEIGHER swallow services indicated. If a decline is displayed with patient's swallow or pulmonary health, consider re-consulting BULLION WEIGHER service. Assessment of cognition, speech, and language assessment conducted utilizing informal measures. For speech, motor speech abilities were grossly intact and speech intelligibility was adequate. For language, auditory comprehension and verbal expression were grossly intact. However, anomia was displayed intermittently in conversation. For cognition, orientation, attention, and problem solving were intact. Areas of impairment included delayed recall and working memory. Assessment of cognitive function was conducted with a combination of informal and formal assessment including administration of Brief Cognitive Status Exam yielding a total score of 54/58 correlating with average classification for age and educational status. Anticipate deficits in the area of memory will impact patient's safety and function at the moderate-complex level. At this time, the patient would benefit from initiation of individualized cognitive-linguistic therapy. PLAN: Treatment Modalities: Memory Exercises and Naming Exercises Cognitive-Linguistic exercises; Patient Family Education; Compensatory Strategies, further assessment PRN Duration: Duration of inpatient stay Frequency: 1-3x per week Goals: Short Term Goals (to be achieved by discharge from hospital): The patient will recall 4-5 units of functional information immediately and with a 5-10 minute delay with use of strategies and min cues in 3/5 trials to improve encoding and retrieval of new information. The patient will use word retrieval strategies (i.e., semantic feature analysis, circumlocution, etc.) to improve word recall at the sentence level in 8/10 trials. Prognosis: good for goals (+) Cooperation (+) PMH (+) New onset of acute issues (+) Age (-) Cognitive impairments (-) Presence of co-morbidities (-) severity of deficits Recommendations: -Initiate individualized speech therapy POC -Diet: Regular solids ((IDDSI level 7/ Regular) -Liquids: Thin Liquids (IDDSI level 0) -Medications: per patient preference OOB to chair at 90 degree angle when able; otherwise, upright at 60 degrees or greater for all PO intake -Oral care with standard toothbrush BID - Anticipate BULLION WEIGHER services needed in discharge setting; consider OP Outpatient BULLION WEIGHER services indicated to address Cognitive/Communication; General Adult Speech Therapy SP101 - If patient were to return home at this time, would benefit from Intermittent Daily Supervision- Person may be left alone for 3-6 hours or more at a time. Patient would benefit from supervision and intermittent assistance with iADLs (i.e., managing money, preparing meals, scheduling appointments, taking medications) Avril Leon M.S. [facility] Inpatient Speech-Language Pathologist (Tuesday- Tuesday Float, contact primary BULLION WEIGHER if unable to reach) T [facility] 04-12-2025 Consult note Associated Order (s): IP PHYSICAL THERAPY SERVICE REQUEST PHYSICAL THERAPY ACUTE EVALUATION Referral received, chart reviewed. Patient seen on unit: 6W for 30 minutes (eval and tx) Time in: 1239 Time out: 1309 Admit date/time: 04/11/2025 10:33 PM Reason for admit: R weakness, numbness, AMS Symptoms improving. Dx: concern for stroke vs TIA Imaging: IMPRESSION: Age-indeterminate infarct is versus dilated perivascular space in the left basal ganglia. There is no large vessel occlusion. Specifically, there is no intracranial ICA, M1, proximal M2 or basilar artery occlusion. No ICA stenosis. PMH: Diabetes with neuropathy, R bundle branch block. Bilateral hearing loss, remote history of tobacco use, bilateral hip replacements Precautions: moderate falls, full code, aspiration Identification was verified by patient verbalizing his name and date of and patient's I.D. band. Risks and Benefits of physical therapy: Patient informed of risks and benefits of treatment SUBJECTIVE: Patient Subjective: I am more unsteady than I thought. 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 0 steps to bedroom/bathroom Does have an upstairs and basement that patient frequents often but does not have to. Assistance available: lives with . Available 21/02 but she is recovering from recent shoulder surgery (in sling and unable to drive at this time). They report strong community support with quaker and neighbors. 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 Tangential, easily distracted Oriented x 3 Follows 1 step commands consistently with cues Pain: Site/Location: denies ; Pain Scale: 0/10 Pain Relief Interventions Implemented: None required; No pain at this time Passive ROM: Not formally tested however observed WFL for basic level of mobility Strength/Active ROM: BLE 5/5 throughout. Patient with tingling to BLE and BUE secondary to neuropathy. Not presently worse. L extremities are worse than right but patient does have sensation intact Vision: denies blurred or double vision. Patient does have a R visual field cut. Mobility: Supine to long sit: independent Long sit to short sit: independent Sitting balance: Good Sit to stand: close supervision Ambulation/Gait: patient ambulated 10'x1 and 100'x1 with no device with close supervision. Brief moments of CG assistance. Decreased overall speed but grossly WFL. No overt LOB or SOB. Cues to scan to right to manage environment due to visual deficits on right side. Does drift to right slightly but can correct. Stairs: up and down 4 steps with 1 rail with close supervision. Reciprocal pattern. Mildly unsteady with small, self corrected, LOB. Patient returned to room and was seated at EOB at end of session. Call light in reach. at bedside. Endurance: WFL Patient/Family Education: Instructed patient in roles of therapy. Importance of mobility Encouraged assistance at this time Instructed to refrain from driving Roles of outpatient neuro therapies. Instructed to wear shoes for mobility Instructed to scan environment to right side to ensure safety due to field cut. ASSESSMENT: Nash Ferguson is a 74 year old male admitted with R weakness in setting of stroke. Patient demonstrates improvement in symptoms but remains slightly below baseline with coordination, balance and vision impairment. Patient is functionally appropriate to return home with PRN assistance. Recommend outpatient neuro PT follow up. Patient lives in [place], [place]. Please provide paper script for outpatient therapies. Will continue to follow. Problems: Decreased functional mobility Decreased balance Decreased cognition/behavior Impaired safety awareness Impaired vision (R) Rehabilitation Potential: Good Goals (to be achieved by discharge from acute care): Patient will perform sit to/from stand independently. Patient will ambulate 150+ feet independently Patient will ascend/descend 8 stairs with 1 rail with supervision. Patient will increase ROM/Strength/Endurance/Balance to allow for above goals. 04/12/2025 6 Clicks Basic Mobility PT Difficulty turning over in bed 4 Difficulty sitting down and standing up from a chair with arms 3 Difficulty moving from lying on back to sitting on the side of the bed 4 Help from another person moving to and from bed to a chair 3 Help from another person to walk in hospital room 3 Help from another person climbing 3-5 steps with a railing 3 PT 6 Clicks Score 20 6 Click Score Guidelines: 1 - Total = Requires total assistance, or cannot do at all. 2 - A lot = Requires a lot of help (maximun to moderate assistance) Can use assistive devices. 3 - A little = Requires a little help (supervision, minimal assistance) Can use assistive devices. 4 - None = Does not require any help and does the activity independently. Can use assistive devices. PLAN: Frequency: Patient to be seen 3-5 times a week for: Interventions: Functional mobility ROM/Strengthening Discharge planning and equipment ordering as needed Patient/Family education The evaluation findings and treatment plan were discussed with the patient. The patient indicated understanding and agreement with the plan. Nancy Almazan, PT, MPT, CSRS NA = Not Assessed, I = Independent, AK = Modified Independent, Sup = Supervised, Set up = Physical Assistance for Set-up Only, Min = Minimal Assistance, Mod = Moderate Assistance, Max = Max assistance; Dep = Dependent; AROM = Active Range of Motion; PROM = Passive Range of Motion; MMT = Manual Muscle Test; LE = Lower Extremity [facility] 04-12-2025 Note PHYSICAL THERAPY ACU TE EVALUATION Referral received, chart reviewed. Patient seen on unit: 6W for 30 minutes (eval and tx) Time in: 1239 Time out: 1309 Admit date/time: 04/11/2025 10:33 PM Reason for admit: R weakness, numbness, AMS Symptoms improving. Dx: concern for stroke vs TIA Imaging: IMPRESSION: Age-indeterminate infarct is versus dilated perivascular space in the left basal ganglia. There is no large vessel occlusion. Specifically, there is no intracranial ICA, M1, proximal M2 or basilar artery occlusion. No ICA stenosis. PMH: Diabetes with neuropathy, R bundle branch block. Bilateral hearing loss, remote history of tobacco use, bilateral hip replacements Precautions: moderate falls, full code, aspiration Identification was verified by patient verbalizing his name and date of and patient's I.D. band. Risks and Benefits of physical therapy: Patient informed of risks and benefits of treatment SUBJECTIVE: Patient Subjective: I am more unsteady than I thought. 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 0 steps to bedroom/bathroom Does have an upstairs and basement that patient frequents often but does not have to. Assistance available: lives with . Available 21/02 but she is recovering from recent shoulder surgery (in sling and unable to drive at this time). They report strong community support with quaker and neighbors. 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 Tangential, easily distracted Oriented x 3 Follows 1 step commands consistently with cues Pain: Site/Location: denies ; Pain Scale: 0/10 Pain Relief Interventions Implemented: None required; No pain at this time Passive ROM: Not formally tested however observed WFL for basic level of mobility Strength/Active ROM: BLE 5/5 throughout. Patient with tingling to BLE and BUE secondary to neuropathy. Not presently worse. L extremities are worse than right but patient does have sensation intact Vision: denies blurred or double vision. Patient does have a R visual field cut. Mobility: Supine to long sit: independent Long sit to short sit: independent Sitting balance: Good Sit to stand: close supervision Ambulation/Gait: patient ambulated 10'x1 and 100'x1 with no device with close supervision. Brief moments of CG assistance. Decreased overall speed but grossly WFL. No overt LOB or SOB. Cues to scan to right to manage environment due to visual deficits on right side. Does drift to right slightly but can correct. Stairs: up and down 4 steps with 1 rail with close supervision. Reciprocal pattern. Mildly unsteady with small, self corrected, LOB. Patient returned to room and was seated at EOB at end of session. Call light in reach. at bedside. Endurance: WFL Patient/Family Education: Instructed patient in roles of therapy. Importance of mobility Encouraged assistance at this time Instructed to refrain from driving Roles of outpatient neuro therapies. Instructed to wear shoes for mobility Instructed to scan environment to right side to ensure safety due to field cut. ASSESSMENT: Nash Ferguson is a 74 year old male admitted with R weakness in setting of stroke. Patient demonstrates improvement in symptoms but remains slightly below baseline with coordination, balance and vision impairment. Patient is functionally appropriate to return home with PRN assistance. Recommend outpatient neuro PT follow up. Patient lives in [place], [place]. Please provide paper script for outpatient therapies. Will continue to follow. Problems: Decreased functional mobility Decreased balance Decreased cognition/behavior Impaired safety awareness Impaired vision (R) Rehabilitation Potential: Good Goals (to be achieved by discharge from acute care): Patient will perform sit to/from stand independently. Patient will ambulate 150+ feet independently Patient will ascend/descend 8 stairs with 1 rail with supervision. Patient will increase ROM/Strength/Endurance/Balance to allow for above goals. 04/12/2025 6 Clicks Basic Mobility PT Difficulty turning over in bed 4 Difficulty sitting down and standing up from a chair with arms 3 Difficulty moving from lying on back to sitting on the side of the bed 4 Help from another person moving to and from bed to a chair 3 Help from another person to walk in hospital room 3 Help from another person climbing 3-5 steps with a railing 3 PT 6 Clicks Score 20 6 Click Score Guidelines: 1 - Total = Requires total assistance, or cannot do at all. 2 - A lot = Requires a lot of help (maximun to moderate assistance) Can use assistive devices. 3 - A little = Requires a little (more content not included)... [facility] 04-12-2025 History and physical note Formatting of this note is different fro m the original. Images from the original note were not included. Neurology Floor Service H&P HPI: Nash Ferguson is a 74 year old male w/ PMH Diabetes, right bundle branch block, bilateral hearing loss, bilateral hip replacement, remote history of tobacco abuse presents with significant other for sudden onset right-sided weakness. Patient's life report last known well 6:30 p.m. right before patient took a brief nap; as patient awoke there was noted confusion, right facial droop, visual disturbance as well as right-sided weakness. Patient reports that they had just gotten to [facility] shortly before symptom onset thus EMS was called and patient was airlifted to [facility]. Patient reports to me that whole encounter lasted about 3 hours before symptoms started to gradually offset. Patient reports history of TIAs however there has not been any treatment whatsoever. Patient tells me that he is currently not at his baseline he is still having difficulty with word finding and attests to patient still being in a confused state. Denies any other neurological symptoms that occurred during encounter such as drooling, dysphagia, numbness of any other part of her body, loss of consciousness or seizure activity. Code stroke was called upon patient presentation and pt sent over to stroke tele. Home Medications: List given to me by Heidi 2 x 30 mg daily Pravastatin 20 mg daily Zoloft 100 mg daily Losartan 25 mg daily Metformin 500 bid Pre-Hospital mRS: 0 no symptoms at all 1 has some symptoms (like dizziness) BUT is functioning completely normally and fully 2 some disability; able to perform all ADLs (dressing, nutrition, hygiene) BUT may not continue with all prior activities like playing golf or driving 3 moderate disability; needs some help BUT is able to walk without assistance 4 moderate - severe disability; needs help with ADLs and is NOT able to walk without assistance 5 severe disability; complete dependency Vital sign ranges over the past 24 hours (retrieved 04/12/2025 at 4:32 AM): Tmax (24 hours): 98.2 F (36.8 C) Pulse Av.2 Min: 78 Max: 84 Systolic (24hrs), Av , Min:93 , Max:125 Diastolic (24hrs), Av, Min:73, Max:81 MAP (mmHg) Av.2 mmHg Min: 81 mmHg Max: 90 mmHg Resp Av Min: 16 Max: 20 SpO2 Av.3 % Min: 96 % Max: 98 % No intake or output data in the 24 hours ending 04/12/25 0432 Current Inpatient Medications Scheduled: aspirin EC, 325 mg, Oral, One Time Dose [START ON 04/13/2025] aspirin EC, 81 mg, Oral, Daily pravastatin, 20 mg, Oral, At Bedtime enoxaparin, 40 mg, Subcutaneous, Daily Continuous: lactated ringers, 500 mL PRN: Neurological Exam: Sedation: none Level of consciousness: awake, alert Affect: normal Orientation: oriented x3 Attention: normal Language: intact fluency, comprehension occassional difficulty with recollection Visual meek: possible contralateral superior quadrantopia Neglect: absent Extinction: absent Right-left confusion: absent Cranial Nerves Vision/fundoscopic: n/a Pupils: 3 mm OD, 3 mm OS; reactive to light bilaterally Spontaneous gaze: no deviation Extraocular movements: intact Facial sensation: decreased on R Facial motor function: symmetric forehead wrinkling and smile Hearing: intact to conversation with bilat hearing aids Palate elevation: symmetric Dysarthria: absent Tongue: midline Shoulder shrug: normal Motor Tone: normal Drift: absent Spontaneous abnormal movements: none RUE antigravity, 5/5 full strength, follows commands LUE antigravity, 5/5 full strength, follows commands LLE antigravity, 5/5 full strength, follows commands RLE antigravity, 4/5 full strength, follows commands DTRs RIGHT LEFT Biceps 2 2 Triceps Fingers Patellar 2 2 Ankle Toes Sensation Decreased to light touch on R Coordination R: ataxic L: intact on FNF, HTS General Exam General appearance: normal appearing at stated age Head: atraumatic, normocephalic Neck: supple Eyes: no scleral icterus or edema Mucous membranes: moist Abdomen: soft, NT/ND, bowel sounds present Extremities: no deformities; no joint redness; no joint swelling Physical Exam Constitutional: Appearance: Normal appearance. HENT: Head: Normocephalic and atraumatic. Nose: Nose normal. Eyes: Extraocular Movements: Extraocular movements intact. Pupils: Pupils are equal, round, and reactive to light. Cardiovascular: Rate and Rhythm: Normal rate and regular rhythm. Pulses: Normal pulses. Heart sounds: Normal heart sounds. Pulmonary: Effort: Pulmonary effort is normal. Breath sounds: Normal breath sounds. Abdominal: General: Bowel sounds are normal. Palpations: Abdomen is soft. Musculoskeletal: General: Normal range of motion. Cervical back: Normal range of motion. Skin: General: Skin is warm and dry. Psoriatic plaques Capillary Refill: Capillary refill takes less than 2 seconds. NIH Stroke Scale: time performed 0200 1a. Level of Consciousness Alert (0 points) 1b. LOC Questions Answers both correctly (0 points) 1c. LOC Commands Obeys both correctly (0 points) 2. Best Gaze Normal (0 points) 3. Visual Partial hemianopia (1 point) 4. Facial Palsy Normal (0 points) 5a. Motor Arm Left No drift (0 points) 5b. Motor Arm Right No drift (0 points) 6a. Motor Leg Left No drift (0 points) 6b. Motor Leg Right No drift (0 points) 7. Limb Ataxia Present in one limb (1 point) 8. Sensory Partial loss (1 point) 9. Best Language Mild to moderate aphasia (1point) 10. Dysarthria Normal articulation (0 points) 11. Extinction and Inattention No neglect (0 points) TOTAL 4 Summary of Imaging & Other Pertinent Studies: CTA HEAD/NECK CODE STROKE W/PRO IMPRESSION: Age-indeterminate infarct is versus dilated perivascular space in the left basal ganglia. There is no large vessel occlusion. Specifically, there is no intracranial ICA, M1, proximal M2 or basilar artery occlusion. No ICA stenosis. Hospital Course: No notes on file A/P: Nash Ferguson is a 74 year old male w/ PMH Diabetes, right bundle branch block, bilateral hearing loss, bilateral hip replacement, remote history of tobacco abuse presents with significant other for sudden onset right-sided weakness. Neuro # hx of multiple TIA's # R sided ataxia and decreased sensation improving # possible contralateral superior quadrantopia on exam - Neuro Checks Q4 hours - Core Stroke labs sent - Antiplatelt / Anticogulation plan: ASA 325 then 81 daily - Social work consult for stroke education - PT / OT / BULLION WEIGHER consults CV #HLD #HTN #RBBB #LVH - Continue pravastatin - SBP goal allow permisive HTN to 220 - Baseline EKG w/ nsr and rbbb - Echo ordered - LDL pending Pulm #Sleep apnea #hx of transient global amnesia - Compliant on CPAP - Amnesia was related to lack of sleep GI/Endo/ #Diabetes - Dysphagia screen prior to PO intake - A1C pending - SSI Skin #Psoriatic arthritis - Controlled L/T: PIVs PPX: SCDs. lovenox as above. Code: full code Contact: Significant other, DOTTIE FERGUSON (Spouse) Dispo: Pending PT/PT recommendations HOTBED LEVER OPERATOR consult Incidental Findings: N/a F/u needs: PCP, Neurology, General Cardiology, I personally examined this high risk patient; personally evaluated patient data, laboratory data and imaging; made clinical decisions informed by patient specifics, current literature and guidelines; and updated the patient and care team. I reviewed all the data with the on-service attending Dr. Hoskins. Total time spent reviewing chart and images, obtaining clinical history, examining the patient, documenting and communicatin minutes. JAGRUTI Corona PA-C [facility], [facility] Neurology/NCCU 1* contact: [employer] secure chat 6a-6p [facility] 04-12-2025 History and physical note Formatting of this note is different fro m the original. Images from the original note were not included. Neurology Floor Service H&P HPI: Nash Ferguson is a 74 year old male w/ PMH Diabetes, right bundle branch block, bilateral hearing loss, bilateral hip replacement, remote history of tobacco abuse presents with significant other for sudden onset right-sided weakness. Patient's life report last known well 6:30 p.m. right before patient took a brief nap; as patient awoke there was noted confusion, right facial droop, visual disturbance as well as right-sided weakness. Patient reports that they had just gotten to [facility] shortly before symptom onset thus EMS was called and patient was airlifted to [facility]. Patient reports to me that whole encounter lasted about 3 hours before symptoms started to gradually offset. Patient reports history of TIAs however there has not been any treatment whatsoever. Patient tells me that he is currently not at his baseline he is still having difficulty with word finding and attests to patient still being in a confused state. Denies any other neurological symptoms that occurred during encounter such as drooling, dysphagia, numbness of any other part of her body, loss of consciousness or seizure activity. Code stroke was called upon patient presentation and pt sent over to stroke tele. Home Medications: List given to me by Heidi 2 x 30 mg daily Pravastatin 20 mg daily Zoloft 100 mg daily Losartan 25 mg daily Metformin 500 bid Pre-Hospital mRS: 0 no symptoms at all 1 has some symptoms (like dizziness) BUT is functioning completely normally and fully 2 some disability; able to perform all ADLs (dressing, nutrition, hygiene) BUT may not continue with all prior activities like playing golf or driving 3 moderate disability; needs some help BUT is able to walk without assistance 4 moderate - severe disability; needs help with ADLs and is NOT able to walk without assistance 5 severe disability; complete dependency Vital sign ranges over the past 24 hours (retrieved 04/12/2025 at 4:32 AM): Tmax (24 hours): 98.2 F (36.8 C) Pulse Av.2 Min: 78 Max: 84 Systolic (24hrs), Av , Min:93 , Max:125 Diastolic (24hrs), Av, Min:73, Max:81 MAP (mmHg) Av.2 mmHg Min: 81 mmHg Max: 90 mmHg Resp Av Min: 16 Max: 20 SpO2 Av.3 % Min: 96 % Max: 98 % No intake or output data in the 24 hours ending 04/12/25 0432 Current Inpatient Medications Scheduled: aspirin EC, 325 mg, Oral, One Time Dose [START ON 04/13/2025] aspirin EC, 81 mg, Oral, Daily pravastatin, 20 mg, Oral, At Bedtime enoxaparin, 40 mg, Subcutaneous, Daily Continuous: lactated ringers, 500 mL PRN: Neurological Exam: Sedation: none Level of consciousness: awake, alert Affect: normal Orientation: oriented x3 Attention: normal Language: intact fluency, comprehension occassional difficulty with recollection Visual meek: possible contralateral superior quadrantopia Neglect: absent Extinction: absent Right-left confusion: absent Cranial Nerves Vision/fundoscopic: n/a Pupils: 3 mm OD, 3 mm OS; reactive to light bilaterally Spontaneous gaze: no deviation Extraocular movements: intact Facial sensation: decreased on R Facial motor function: symmetric forehead wrinkling and smile Hearing: intact to conversation with bilat hearing aids Palate elevation: symmetric Dysarthria: absent Tongue: midline Shoulder shrug: normal Motor Tone: normal Drift: absent Spontaneous abnormal movements: none RUE antigravity, 5/5 full strength, follows commands LUE antigravity, 5/5 full strength, follows commands LLE antigravity, 5/5 full strength, follows commands RLE antigravity, 4/5 full strength, follows commands DTRs RIGHT LEFT Biceps 2 2 Triceps Fingers Patellar 2 2 Ankle Toes Sensation Decreased to light touch on R Coordination R: ataxic L: intact on FNF, HTS General Exam General appearance: normal appearing at stated age Head: atraumatic, normocephalic Neck: supple Eyes: no scleral icterus or edema Mucous membranes: moist Abdomen: soft, NT/ND, bowel sounds present Extremities: no deformities; no joint redness; no joint swelling Physical Exam Constitutional: Appearance: Normal appearance. HENT: Head: Normocephalic and atraumatic. Nose: Nose normal. Eyes: Extraocular Movements: Extraocular movements intact. Pupils: Pupils are equal, round, and reactive to light. Cardiovascular: Rate and Rhythm: Normal rate and regular rhythm. Pulses: Normal pulses. Heart sounds: Normal heart sounds. Pulmonary: Effort: Pulmonary effort is normal. Breath sounds: Normal breath sounds. Abdominal: General: Bowel sounds are normal. Palpations: Abdomen is soft. Musculoskeletal: General: Normal range of motion. Cervical back: Normal range of motion. Skin: General: Skin is warm and dry. Psoriatic plaques Capillary Refill: Capillary refill takes less than 2 seconds. NIH Stroke Scale: time performed 0200 1a. Level of Consciousness Alert (0 points) 1b. LOC Questions Answers both correctly (0 points) 1c. LOC Commands Obeys both correctly (0 points) 2. Best Gaze Normal (0 points) 3. Visual Partial hemianopia (1 point) 4. Facial Palsy Normal (0 points) 5a. Motor Arm Left No drift (0 points) 5b. Motor Arm Right No drift (0 points) 6a. Motor Leg Left No drift (0 points) 6b. Motor Leg Right No drift (0 points) 7. Limb Ataxia Present in one limb (1 point) 8. Sensory Partial loss (1 point) 9. Best Language Mild to moderate aphasia (1point) 10. Dysarthria Normal articulation (0 points) 11. Extinction and Inattention No neglect (0 points) TOTAL 4 Summary of Imaging & Other Pertinent Studies: CTA HEAD/NECK CODE STROKE W/PRO IMPRESSION: Age-indeterminate infarct is versus dilated perivascular space in the left basal ganglia. There is no large vessel occlusion. Specifically, there is no intracranial ICA, M1, proximal M2 or basilar artery occlusion. No ICA stenosis. Hospital Course: No notes on file A/P: Nash Ferguson is a 74 year old male w/ PMH Diabetes, right bundle branch block, bilateral hearing loss, bilateral hip replacement, remote history of tobacco abuse presents with significant other for sudden onset right-sided weakness. Neuro # hx of multiple TIA's # R sided ataxia and decreased sensation improving # possible contralateral superior quadrantopia on exam - Neuro Checks Q4 hours - Core Stroke labs sent - Antiplatelt / Anticogulation plan: ASA 325 then 81 daily - Social work consult for stroke education - PT / OT / BULLION WEIGHER consults CV #HLD #HTN #RBBB #LVH - Continue pravastatin - SBP goal allow permisive HTN to 220 - Baseline EKG w/ nsr and rbbb - Echo ordered - LDL pending Pulm #Sleep apnea #hx of transient global amnesia - Compliant on CPAP - Amnesia was related to lack of sleep GI/Endo/ #Diabetes - Dysphagia screen prior to PO intake - A1C pending - SSI Skin #Psoriatic arthritis - Controlled L/T: PIVs PPX: SCDs. lovenox as above. Code: full code Contact: Significant other, DOTTIE FERGUSON (Spouse) Dispo: Pending PT/PT recommendations HOTBED LEVER OPERATOR consult Incidental Findings: N/a F/u needs: PCP, Neurology, General Cardiology, I personally examined this high risk patient; personally evaluated patient data, laboratory data and imaging; made clinical decisions informed by patient specifics, current literature and guidelines; and updated the patient and care team. I reviewed all the data with the on-service attending Dr. Hoskins. Total time spent reviewing chart and images, obtaining clinical history, examining the patient, documenting and communicatin minutes. JAGRUTI Corona PA-C [facility], [facility] Neurology/NCCU 1* contact: [employer] secure chat 6a-6p documented in this encounter [facility] 04-11-2025 Miscellaneous Notes Formatting of this note might be differe nt from the original. Code Stroke Attending - Telephone Consultation Patient location Main ED Code Stroke Call 2255 Narrative 74M with ho HTN. After waking up from a nap around 730pm, family noticed that he seemed confused, wasn't acting right. On initial evaluation, concerning for right arm and leg weakness, slurred speech, confusion. This improved while in the ED. Last Known Well 1829 POC glucose 169 SBP 139 Initial NIHSS 3 Deficits confusion, numbness, dysmetria Head CT (personal review) no IPH, time 2322 CTA (personal review) no LVO, time 232 Assessment and Recommendations IV thrombolysis (if not indicated, why not?) no, non-disabling symptoms that are improving Thrombectomy (if not indicated, why not?) no LVO Additional medical management, imaging, labs, tests - Neurochecks: q4hrs - Permissive hypertension to 220 in the immediate post-stroke period if no thrombolysis is done. If IV TNK given, please maintain BP < 180/105. - complete bedside dysphagia screen - IVF until taking adequate PO, corpak if necessary - Echocardiogram with shunt/bubble study to evaluate for thrombus and/or PFO - Telemetry for at least 48hrs post-stroke - please send core stroke labs (LDL, Hb A1C) - Antiplatelet therapy: ASA 325 mg now, then 81mg daily starting tomorrow - High intensity statin: atorvastatin 40 - PT, OT, BULLION WEIGHER, SW consults if necessary Admit to Stroke Floor Imaging and plan discussed with ED and NRO IR attendings at 2323 35 min spent in review of data, documentation and coordination of care. Dominic George MD Neurology service pager (for floor and ED consults): [phone] documented in this encounter [facility] 04-11-2025 Note Formatting of this n ote might be different from the original. Code Stroke Attending - Telephone Consultation Patient location Main ED Code Stroke Call 2255 Narrative 74M with ho HTN. After waking up from a nap around 730pm, family noticed that he seemed confused, wasn't acting right. On initial evaluation, concerning for right arm and leg weakness, slurred speech, confusion. This improved while in the ED. Last Known Well 1829 POC glucose 169 SBP 139 Initial NIHSS 3 Deficits confusion, numbness, dysmetria Head CT (personal review) no IPH, time 2322 CTA (personal review) no LVO, time 2322 Assessment and Recommendations IV thrombolysis (if not indicated, why not?) no, non-disabling symptoms that are improving Thrombectomy (if not indicated, why not?) no LVO Additional medical management, imaging, labs, tests - Neurochecks: q4hrs - Permissive hypertension to 220 in the immediate post-stroke period if no thrombolysis is done. If IV TNK given, please maintain BP < 180/105. - complete bedside dysphagia screen - IVF until taking adequate PO, corpak if necessary - Echocardiogram with shunt/bubble study to evaluate for thrombus and/or PFO - Telemetry for at least 48hrs post-stroke - please send core stroke labs (LDL, Hb A1C) - Antiplatelet therapy: ASA 325 mg now, then 81mg daily starting tomorrow - High intensity statin: atorvastatin 40 - PT, OT, BULLION WEIGHER, SW consults if necessary Admit to Stroke Floor Imaging and plan discussed with ED and NRO IR attendings at 2323 35 min spent in review of data, documentation and coordination of care. Dominic George MD Neurology service pager (for floor and ED consults): [phone] [employer] Work Phone: 04-11-2025 Note Code Stroke Attendin g - Telephone Consultation Patient location [facility] Main ED Code Stroke Call 2255 Narrative 74M with ho HTN. After waking up from a nap around 730pm, family noticed that he seemed confused, wasn't acting right. On initial evaluation, concerning for right arm and leg weakness, slurred speech, confusion. This improved while in the ED. Last Known Well 1829 POC glucose 169 SBP 139 Initial NIHSS 3 Deficits confusion, numbness, dysmetria Head CT (personal review) no IPH, time 232 CTA (personal review) no LVO, time 232 Assessment and Recommendations IV thrombolysis (if not indicated, why not?) no, non-disabling symptoms that are improving Thrombectomy (if not indicated, why not?) no LVO Additional medical management, imaging, labs, tests - Neurochecks: q4hrs - Permissive hypertension to 220 in the immediate post-stroke period if no thrombolysis is done. If IV TNK given, please maintain BP < 180/105. - complete bedside dysphagia screen - IVF until taking adequate PO, corpak if necessary - Echocardiogram with shunt/bubble study to evaluate for thrombus and/or PFO - Telemetry for at least 48hrs post-stroke - please send core stroke labs (LDL, Hb A1C) - Antiplatelet therapy: ASA 325 mg now, then 81mg daily starting tomorrow - High intensity statin: atorvastatin 40 - PT, OT, BULLION WEIGHER, SW consults if necessary Admit to Stroke Floor Imaging and plan discussed with ED and NRO IR attendings at 2323 35 min spent in review of data, documentation and coordination of care. Dominic George MD Neurology service pager (for floor and ED consults): [phone] [facility] [employer] [facility] 04-11-2025 Emergency department Note Formatting of this note might be differe nt from the original. Pt BIB by MLF from [facility] after pt waking up from nap at 1900 with R sided numbness/weakness, per (at bedside) pt seemed confused and had some slurred speech. LKW 1830. Denies hx of stroke/thinners/head injury. Bed: 11 Expected date: Expected time: Means of arrival: Comments: Aden FERGUSON documented in this encounter [facility] 04-11-2025 Emergency department Triage note Formatting of this note might be differe nt from the original. Pt BIB by MLF from [facility] after pt waking up from nap at 1900 with R sided numbness/weakness, per (at bedside) pt seemed confused and had some slurred speech. LKW 1830. Denies hx of stroke/thinners/head injury. [facility] 04-11-2025 Emergency department Note Formatting of this note might be differe nt from the original. Bed: 11 Expected date: Expected time: Means of arrival: Comments: Aden FERGUSON [facility] 04-11-2025 Evaluation note Diagnosis Onset Date Resolution CVA (cerebral vascular accident) April 11, 2025 acute May 08, 2025 9:05am Right homonymous hemianopsia acute May 08, 2025 9:05am [place] [employer] [facility] Work Phone: 1(818) 762-735309-11-2025 Evaluation note* Diagnosis Onset Date Resolution Status Admit Date CVA (cerebral vascular accident) April 11, 2025 acute May 9:05am Right homonymous hemianopsia acute May 08 9:05am CVA (cerebral vascular accident) April 11, 2025 acute May 10:04am Diabetes mellitus acute May 13, 2025 10:04am Aortic valve stenosis chronic May 10:04am PVD (peripheral vascular disease) chronic May 13 10:04am [place] [employer] Work Phone: 1(272) 107-146204-07-2025 Evaluation note* Diagnosis Onset Date Resolution Status Admit Date Obesity chronic November 05 10:46am JAYA (obstructive sleep apnea) chroni c November 05, 2024 10:46am [facility] Work Phone: 1(772) 801-842810-30-2023 Note. MICRO - Microbiology PROCEDURE: Culture Wound Aerobic [...] Locations *1: This test was performed at: [facility], [address] [place] [address], [facility]- , [facility] ([place])09-08-2022 Evaluation + Plan note Future Scheduled Tests Laboratory* Prostate Specific Antigen 12/11/22 * A1C Hemoglobin 09/08/22 * Complete Blood Count 12/11/22 * Complete Blood Count 09/08/22 * Lipid Profile 12/11/22 * Lipid Profile 09/08/22 * Microalbumin Level Urine 12/11/22 * Complete Metabolic Panel 12/11/22 * Complete Metabolic Panel 09/08/22 [facility] 09-13-2022 Note ORIGINAL EXAMINATION: RIGHT UPPER QUADRANT ULTRASOUND [...] Date: 04/13/2022 10:09:01 AM Ordering Provider: MARTA SOLORIO [facility]09-13-2022 Note ORIGINAL EXAMINATION: RIGHT UPPER QUADRANT ULTRASOUND [...] Sign Date: 04/13/2022 10:09:01 AM Ordering Provider: [facility]06-25-2022 History of Present illness NarrativePatient is here for CT results. CT showed [...] ED is an issue. Patient also has [id number] Work Phone: 1(489) 418-956412-09-2021 Note. MICRO - Microbiology PROCEDURE: Urine Culture [*1] [...] Locations *1: This test was performed at: [facility], [address] [place] [address], [id number]- , [facility] ([place])07-08-2021 Miscellaneous Notes* Assessment & Plan Note - Mark Odell MD - 07/08/2021 2:21 PM EST Associated Problem(s): LVH (left ventricular hypertrophy) Noted on recent echo, continue low-dose ARB * Assessment & Plan Note - Mark Odell MD - 07/08/2021 2:16 PM EST Associated Problem(s): Newly recognized heart murmur Echo from April 2020 shows aortic sclerosis, borderline mild aortic stenosis mean gradient of 9 * Assessment & Plan Note - Mark Odell MD - 07/08/2021 2:16 PM EST Associated Problem(s): Hyperlipidemia Continue Pravachol 20 mg daily with target LDL less than 100 * Assessment & Plan Note - Mark Odell MD - 07/08/2021 2:16 PM EST Associated Problem(s): Sleep apnea History of compliance documented in this [id number] History of Present illness Narrative* Mark Odell MD - 07/08/2021 1:52 PM EST Interventional Cardiology Clinic Follow-up Heart & Vascular [facility] 07/01/2021 Mark Odell MD [address] [facility] [address] Patient: Nash Ferguson Date of : 1950 [...] who comes in today for routine cardiac follow- up. He was swimming a lot until he [...] feels from a cardiac standpoint, he is doingwell. Objective Tobacco Use Smoking Status Never Smoker Smokeless Tobacco Never Used ECG 12 lead Final Result by Mark Odell MD (12/06/2018 1247) Echocardiogram complete with bubble study Final Result by Viktor Gregory MD (04/23/2020 1646) HOME Medications: Patient's Medications New Prescriptions No [...] mouth 2 (two) times a day . [id number] ORAL Take by mouth 2 (two) times [...] Position: Sitting, BP Cuff Size: Other (Comment)) Comment(BP Cuff Size): Large Pulse 84 Ht 6' [...] maximum 14 days allowed.) documented in this [id number] Miscellaneous Notes* Telephone Encounter - Rosio Dixon MA - 12/30/2020 2:49 PM EDT Pt last seen 09/10/2020, F/u in [address] Recall is in place. Refilled Pravastatin 20mg Daily #90 with 0 refill. Last FLP 10/04/2017 [facility] Future Appointments Appointment Date:09/28/2021 10:50:00 AM Scheduled Provider:MARTA SOLORIO Location:[facility] Appointment Type:PC OV Follow Up Diagnostic Tests Pending * Urine Culture 07/07/21 * Urinalysis Microscopic 07/07/21 [facility] Evaluation + Plan note Future Appointments Appointment Date:03/30/2022 03:00:00 PM Scheduled Provider:MARTA SOLORIO Location:[facility] Appointment Type:PC OV Follow Up Diagnostic Tests Pending * Urine Culture 03/25/22 [facility] Evaluation + Plan note Future Appointments Appointment Date:04/15/2022 04:00:00 PM Scheduled Provider: Location:[facility] Appointment Type:VL AOH - Venous Insufficiency 1 Leg (Out Appointment Date:06/10/2022 02:20:00 PM Scheduled Provider:MARTA SOLORIO Location:[facility] Appointment Type:PC OV Controlled Medication [facility] Evaluation + Plan note Future Appointments Appointment Date:06/10/2022 02:20:00 PM Scheduled Provider:MARTA SOLORIO Location:[facility] Appointment Type:PC OV Controlled Medication [facility] Evaluation + Plan note Future Appointments Appointment Date:12/15/2022 11:00:00 AM Scheduled Provider:JOSEFINA ZAVALETA Location:[facility] Appointment Type:PC OV Future Scheduled Tests Laboratory* A1C Hemoglobin 09/08/22 * Complete Blood Count 09/08/22 * Lipid Profile 09/08/22 * Microalbumin Level Urine 12/11/22 * Complete Metabolic Panel 09/08/22 [facility] Evaluation + Plan note Future Appointments Appointment Date:03/18/2023 11:30:00 AM Scheduled Provider:JOSEFINA ZAVALETA Location:[facility] Appointment Type:PC OV Future Scheduled Tests Laboratory* A1C Hemoglobin 09/08/22 * Complete Blood Count 09/08/22 * Lipid Profile 09/08/22 * Albumin/Creatinine Ratio, Random Urine 12/22/22 * Microalbumin Level Urine 12/11/22 * Complete Metabolic Panel 09/08/22 [facility] Evaluation + Plan note Future Appointments Appointment Date:06/03/2023 04:00:00 PM Scheduled Provider:WILFRID CANNON Location:[facility] Appointment Type:PC OV Appointment Date:06/17/2023 11:30:00 AM Scheduled Provider:JOSEFINA ZAVALETA Location:[facility] Appointment Type:PC OV Future Scheduled Tests Laboratory* Albumin/Creatinine Ratio, Random Urine 12/22/22 * Microalbumin Level Urine 12/11/22 [facility] Evaluation + Plan note Future Appointments Appointment Date:12/14/2023 04:30:00 PM Scheduled Provider:JOSEFINA ZAVALETA Location:[facility] Appointment Type:PC OV Future Scheduled Tests Laboratory* Prostate Specific Antigen 09/14/23 * A1C Hemoglobin 09/14/23 * Complete Blood Count 09/14/23 * Lipid Profile 09/14/23 * Albumin/Creatinine Ratio, Random Urine 12/22/22 * Microalbumin Level Urine 12/11/22 * Complete Metabolic Panel 09/14/23 [facility] Evaluation + Plan note Future Appointments Appointment Date:12/14/2023 04:30:00 PM Scheduled Provider:JOSEFINA ZAVALETA Location:[facility] Appointment Type:PC OV Future Scheduled Tests Laboratory* Albumin/Creatinine Ratio, Random Urine 12/22/22 * Microalbumin Level Urine 12/11/22 [facility] Evaluation + Plan note Future Appointments Appointment Date:12/21/2024 04:30:00 PM Scheduled Provider:JOSEFINA ZAVALETA Location:[facility] Appointment Type:PC OV Future Scheduled Tests Laboratory* Prostate Specific Antigen 09/21/24 * A1C Hemoglobin 09/21/24 * Complete Blood Count 09/21/24 * Lipid Profile 09/21/24 * Vitamin D Level 09/21/24 * Complete Metabolic Panel 09/21/24 [facility] Evaluation + Plan note Future Appointments Appointment Date:12/21/2024 04:30:00 PM Scheduled Provider:JOSEFINA ZAVALETA Location:[facility] Appointment Type:PC OV [facility] Evaluation note* Diagnosis Obstructive sleep apnea syndrome Obstructive sleep apnea (adult) (pediatric) Mixed hyperlipidemia Newly recognized heart murmur LVH (left ventricular hypertrophy) Cardiomegaly [facility]* Diagnosis Type 2 diabetes mellitus without complication, without long-term current use of insulin (HCC) 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) [facility]* Diagnosis Type 2 diabetes mellitus without complication, with long-term current use of insulin (HCC)- Primary [facility]* Diagnosis Onset Date Resolution Status Aortic valve stenosis acute [facility] Work Phone: Evaluation note* Diagnosis Onset Date Resolution Status Obesity chronic JAYA (obstructive sleep apnea) chronic [facility] Work Phone: Evaluation note* Diagnosis Cerebrovascular accident (CVA) due to embolism (HCC)- Primary Limb 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 Sensory deficit, right Cerebrovascular accident (CVA) due to occlusion of other cerebral artery (HCC) Unspecified right bundle-branch block Abnormal electrocardiogram (ECG) (EKG) Cerebrovascular accident (CVA) due to embolism of left posterior cerebral artery (HCC) Limb 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 [facility] Narr[facility] No data available for this section [facility] Hospital Discharge instructions No data available for this section [facility] Hospital Discharge instructionsAmbulatory Orders* Ophthalmology Location: None [facility] Work Phone: Note* RONALD PAIZ MD: SIGN, VERIFY Event Display: VL Duplex Scan Aorta/Iliacs Complete AOH [facility] Progress note No data available for this section [facility] Progress note Author Matt Rodriguez [facility] Note Date/Time May 13, 2025 1 1:05am [facility] [address] [place] [address] OFFICE VISIT Date of Service: 05/13/25 MR#: [id number] Acct: [id number] Name: NASH FERGUSON Rep #: [id number] : 1950 Provider: CLARISSA Rodriguez Age/Sex: 74/M Location: [facility] Status: Signed HPI HPI History of Present Illness Details: 74-year-old man with no previous cardiac history other than hypertension anxietydiabetes mellitus who presents for evaluation. He denied any chest pain or shortness of breath or paroxysmal nocturnal dyspnea or pedal edema he has not had any neck arm or jaw discomfort suggest angina. He thinks he might have beentold at some point that he had a cardiac murmur. He did undergo an echocardiogram in 2019 which demonstrated mild calcification of the aortic valveleaflets. 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 He was seen at [facility] in April 2025 for CVA. Workup showed acute left occipital pole infarction and a prior left basal ganglia infarct. Imaging also showed small subclinical hemorrhagic conversion. It is noted he had a normal echocardiogram and A1c. He was startedon dual antiplatelet therapy and added second lipid lowering agent to reduce LDL. Plan was to continue dual antiplatelet therapy for 21 days and then continue aspirin 81 mg daily. Event monitor was ordered upon discharge. It is recommended follow-up with neurologist and consider starting DOAC. He has reduced peripheral vision with his right eye post CVA. He denies chest, arm, jaw, or neck discomfort. He denies palpitations. He denies bilateral lower extremity edema, but states edema in right lower leg. He denies claudication. He denies shortness of breath with activity, shortness of breath at rest, orthopnea, or PND. He denies chronic cough. He denies significant, sudden weight gain. He denies lightheadedness, dizziness, near-syncope, or syncope. He denies blood in urine, blood in stool, or epistaxis. He denies fever with chills. He denies myalgia. He states fatigue. His exercise level has remained stable. His EKG today demonstrates sinus tachycardia with a right bundle branch block which is chronic and no acute changes. Intake Vital Signs 12/18/24 15:36 05/13/25 07:39 Height 6 ft 4 in 6 ft 4 in Weight: 262 lb BMI 31.8 BP 134/73 H Blood Pressure Location Lt brachial Position Sitting Respiration 18 Pulse 97 Pulse Source Monitor Pulse Oximetry (%) 95 Intake Visit Reasons: S/P METRO 04/16 Slurry Blender Required: No Is patient in pain?: No Allergies etanercept (From Enbrel) Allergy (Verified 05/13/25 10:14) Rash methylprednisolone Allergy (Verified 05/13/25 10:14) Rash rivaroxaban (From Xarelto) Adverse Reaction (Intermediate, Verified 05/13/25 10:14) Rash cephalexin (From Keflex) Adverse Reaction (Mild, Verified 05/13/25 10:14) Rash clindamycin Adverse Reaction (Mild, Verified 05/13/25 10:14) GI upset Medications ?Medication ?Instructions ?Recorded ?Confirmed ?Type ascorbic acid (vitamin C) 500 mg 1,000 mg PO QDAY 12/1705/13/25 History capsule lisdexamfetamine 70 mg capsule 70 mg PO DAILY 09/05/18 05/13/25 History (Vyvanse) losartan 25 mg tablet (Cozaar) 25 mg PO DAILY 09/05/18 05/13/25 History multivitamin (Multiple Vitamins 1 tab PO DAILY 9 05/13/25 History tablet) sertraline 100 mg tablet (Zoloft) 100 mg PO DAILY 12/1705/13/25 History zinc 50 mg tablet 50 mg PO DAILY 09/05/1805/01 History lysine 500 mg tablet 500 mg PO DAILY 10/27/22 History blood sugar diagnostic (Accu-Chek #10 ea 07/27/2302/22 History Guide test strips) blood-glucose meter (Accu-Chek #1 ea 07/27/23 11/05/24 History Guide Me Glucose Meter) lancets (Accu-Chek Softclix #100 ea 07/27/23 11/05/24 History Lancets) acetaminophen 500 mg capsule 1,000 mg PO TID PRN 10/2405/13/25 History docusate sodium 100 mg capsule 100 mg PO DAILY 4 05/13/25 History (Colace) metformin 500 mg tablet,extended 500 mg PO QDAY 05/13/25 History release 24 hr aspirin 81 mg tablet,delayed 81 mg PO QDAY 04/18/25 History release (Adult Aspirin Regimen) rosuvastatin 20 mg tablet 20 mg PO QDAY 05/08/2505/13 History selenium 200 mcg capsule 200 mcg PO QDAY 05/08/25 History Ejection fraction %: 65 Have you fallen in the past year?: No PFSH Medical History CVA (cerebral vascular accident) (04/11/25) RLS (restless legs syndrome) Kidney stones Iliac aneurysm Essential hypertension Hyperlipidemia Anxiety Myalgia Cough Arthralgia Osteoarthritis of both hands Psoriasis ADHD Diabetes mellitus Psoriatic arthritis Abnormal CXR (chest x-ray) Surgical History H/O dilation of urethra H/O inguinal hernia repair Colonoscopy planned History of bilateral knee replacement History of bilateral carpal tunnel release H/O bilateral hip replacements Family History Mother Dementia Brother Musculoskeletal disorder Father Musculoskeletal disorder Other RBBB Social History household members: spouse housing: house current occupational status: retired pets and animals: Yes Smoking Status: Never smoker second hand exposure: No alcohol intake: current alcohol intake frequency: holidays/special occasions only substance use type: does not use what type of physical activity do you participate in: swimming do you feel safe at home: Yes ROS Const Const: Negative for fatigue, weakness, headache(s) or frequent falls Eyes Eyes: Negative for blurry vision ENT ENT: Negative for headache(s), dizziness or Nosebleed/epistaxis Cardio Chest Pain: No Palpitations: No Edema: Right Muscle aches with walking: None Resp Respiratory: Negative for SOB with activity, SOB at rest or SOB orthopnea\SOB lying down GI GI: Negative nausea, vomiting, heartburn, bright, red blood in stools or black,tarry stools : Negative for hematuria Musc Musc: Negative for muscle aches/ myalgia Skin Skin: Negative non-healing lesions or rash Neuro Neuro: Negative for dizziness, lightheadedness, syncope, frequent falls, headache(s), weakness or blurry vision Endo Endo: Negative for fatigue Allergy Allergy/Immunology: Negative for rash Cardiology Exam Const Appearance: cooperative, healthy appearing, comfortable and no acute distress Nutritional Appearance: well nourished and obese Orientation: alert, awake and oriented x3 Head Head: normal to inspection Ears: hearing grossly normal bilaterally Nose: external nose normal Face and Sinus: face symmetric Mouth: moist mucous membranes Eyes General: appearance normal, both eyes and all related structures Eyelids: eyelids normal EOM: EOM intact bilaterally Neck Neck: normal visual inspection and no JVD Carotids: normal carotid upstroke Chest Chest inspection: normal inspection of the chest, symmetric chest movement and normal respiratory effort; Negative cough Auscultation: Bilateral: Clear to Auscultation Cardio Rate: regular rate Rhythm: regular rhythm Heart sounds: S1 normal, S2 normal and murmur; Negative rub or gallop Murmur: Grade 1/6 and NAMITA loudest primary aortic area GI GI: normal to inspection and obese Neuro General: patient alert, patient awake, patient oriented x3 and CN's II-XI intactbilaterally Skin Skin: no rashes or lesions noted Extremities Pulses: Normal: Right Posterior Tibial Pulse, Left Posterior Tibial Pulse, RightRadial Pulse and Left Radial Pulse Lower Extremity Edema: None: Bilateral Psych Psychological: normal affect Supplemental Info Supplemental Information Echocardiogram from 04/12/2025: Procedure Summary Normal LV systolic function. The left ventricular ejection fraction (LVEF) is 65%. Normal RV systolic function. No hemodynamically significant valve disease. The pulmonary artery systolic pressure could not be estimated. None invasive hemodynamic assessment is consistent with a normal CVP There is no evidence of intra atrial shunt. See above for further details. Echocardiogram from 01/02/2024: Interpretation Summary Normal LV size. Left ventricular systolic function is normal. The left ventricular ejection fraction is 65 %. The left atrium is mildly enlarged. Stage 1 diastolic dysfunction. Mild (1+) tricuspid valve insufficiency. Mean aortic valve gradient 13 mmHg. Mild diffuse aortic valve thickening. Mild aortic stenosis. Contrast injection was performed. CTA Abd Aorta + Iliofemoral 09/15/22 Impression: Right 2.6 cm proximal common iliac artery fusiform aneurysm. No large vessel occlusion or high-grade stenosis of the major abdominal aortic branches. Abd Aortic Duplex 05/04/22 Summary: 1. Negative for abdominal aortic aneurysm. 2. Positive for aneurysm of the right common iliac artery. Diameter measurementsare noted below. 3. Positive for aneurysm of the left common iliac artery. Diameter measurements are noted below. Diagnostics: Electrocardiogram Echocardiogram Chest X-Ray Abdomen/Pelvis CT Venous Doppler Study Pulmonary: Pulmonary Function Test Past Visits: Cardiology Visit Today Assessment and Plan Assessment and Plan (1) Aortic valve stenosis: Status: Chronic Qualifiers: Cardiac valve disease etiology: nonrheumatic Qualified Code(s): I35.0 - Nonrheumatic aortic (valve) stenosis Plan: Echocardiogram from December 2023 demonstrated an ejection fraction of 65% and mildly diffusely thickened aortic valve with a mean gradient of 13 mmHg. Echocardiogram April 2025 showed no hemodynamically significant valve disease and an LV function of 65% at [facility]. (2) PVD (peripheral vascular disease): Status: Chronic Plan: He does have evidence of peripheral vascular disease and he is scheduled to follow-up with the vascular surgeon for the above. Will continue with risk factor modification. (3) CVA (cerebral vascular accident): Status: Acute Plan: He is currently wearing an event monitor. Depending on results, further recommendation be made. If no atrial fibrillation is noted, will consider loop recorder or smart watch. Patient has reduced his alcohol intake significantly, which may help reduce atrial fibrillation burden. He was encouraged to continue follow-up with neurology team. He is currently on aspirin and Crestor therapy. (4) Diabetes mellitus: Status: Acute Plan: He was encouraged continue risk factor and lifestyle modification. He is currently on metformin 500 mg p.o. daily. Depending on his A1c value, he may be a candidate for SGLT2 inhibitor or GLP-1 medication on account of atherosclerotic disease. Plan Details Additional Comments: Follow Up: [facility] (Carotid U/S) Keep as is ([facility]) Coding Level of Care Code Off vis,est,level 4 Diagnoses Nonrheumatic aortic valve stenosis I35.0 Cardiac valve disease etiology: nonrheumatic PVD (peripheral vascular disease) I73.9 CVA (cerebral vascular accident) I63.9 Diabetes mellitus E11.9 Coding Level of Care Code Off vis,est,level 4 Diagnoses Nonrheumatic aortic valve stenosis I35.0 Cardiac valve disease etiology: nonrheumatic PVD (peripheral vascular disease) I73.9 CVA (cerebral vascular accident) I63.9 Diabetes mellitus E11.9 Clinical Quality Measures Falls Risk Screening/Assistive Devices Have you fallen in the past year?: No Cardiac Ejection fraction %: 65 05/13/25 1336 <Electronically signed by Matt ROMO> Date _ Matt ROMO Cosigner Signature: Date (if applicable) CC: ~ [facility] Work Phone: Reason for referral (narrative)No reason for referral information availableWThe [facility] Work Phone: Assessments Diagnosis ERRONEOUS ENCOUNTER--DISREGA RD - Primary [...] Log into your personal health record on https://AV[employer] System[employer] and enter L315 in the Education box to learn more about Learning About How to Have a Healthy Back. Current as of: December 22, 2015 Content Version: 11.2 2573-3507 vSocial. Care instructions adapted under license by your healthcare professional. If you have questions about a medical condition or this instruction, always ask your healthcare professional. [employer] disclaims any warranty or liability for your [...] Log into your personal health record on https://AV[employer] Systemst[employer] and enter L315 in the Education box to learn more about Learning About How to Have a Healthy Back. Current as of: December 22, 2015 Content Version: 11.2 2542-2433 vSocial. Care instructions adapted under license by your healthcare professional. If you have questions about a medical condition or this instruction, always ask your healthcare professional. [employer] disclaims any warranty or liability for your [...] Log into your personal health record on https://c-crowd.[employer] and enter Y090 in the Education box to learn more about Back Stretches: Exercises. Current as of: December 22, 2015 Content Version: 11.2 3410-6294 [employer]Social. Care instructions adapted under license by your healthcare professional. If you have questions about a medical condition or this instruction, always ask your healthcare professional. [employer] disclaims any warranty or liability for your [...] Log into your personal health record on https://c-crowd.[employer] and enter Y090 in the Education box to learn more about Back Stretches: Exercises. Current as of: December 22, 2015 Content Version: 11.2 4190-5088 [employer]Social. Care instructions adapted under license by your healthcare professional. If you have questions about a medical condition or this instruction, always ask your healthcare professional. [employer] disclaims any warranty or liability for your [...] Log into your personal health record on https://c-crowd.[employer] and enter P361 in the Education box to learn more about Diabetic Nephropathy: Care Instructions. Current as of: November 04, 2015 Content Version: 11.2 5317-0209 [employer]Social. Care instructions adapted under license by your healthcare professional. If you have questions about a medical condition or this instruction, always ask your healthcare professional. [employer] disclaims any warranty or liability for your [...] frequently. So need to create a physicologic flush. You are probably having sleep deficiency that [...] to contact your Care Team: Provider: Dr. Odell Nurse: Artem Santana RN In case of an emergency please call 911. REFILLS: When in need for refills please call your care team or the office at [phone] Please include medication name, pharmacy name, and specify 30-day or 90-day supply. Please check with your pharmacy within 24 hours of request for your refill. You must follow up as directed to continue current refills. Thank you! documented in this encounter* Patient Instructions* Kiesha Deleon MA - 09/10/2020 2:00 PM EST How to contact your Care Team: Provider: Dr. Odell Nurse: Artem Santana RN In case of an emergency please call 911. REFILLS: When in need for refills please call your care team or the office at [phone] Please include medication name, pharmacy name, and specify 30-day or 90-day supply. Please check with your pharmacy within 24 hours of request for your refill. You must follow up as directed to continue current refills. Thank you! documented in this encounter* Patient Instructions* Kiesha Deleon MA - 09/10/2020 2:00 PM EST How to contact your Care Team: Provider: Dr. Odell Nurse: Artem Santana RN In case of an emergency please call 911. REFILLS: When in need for refills please call your care team or the office at [phone] Please include medication name, pharmacy name, and [...] pertinent family history: Mother, Father(V49.89, Z78.9) Status:Active Relationship Condition Age at Onset Recorded Date/T zoe mother Dementia Unknown brother Disorder of musculoskeletal system Unknow n father Disorder of musculoskeletal system Unknow n Relationship Condition Age at Onset Recorded Date/T zoe Not Specified Right bundle branch block Unknown mother Dementia Unknown brother Disorder of musculoskeletal system Unknow n father Disorder of musculoskeletal system Unknow n Advance Directives No Advanced Directives Records FoundDocuments on File Type Date Recorded Patient Transfer Agent Expl anation Advance Directives and Living Will Documents on File Type Date Recorded Patient Transfer Agent Expl anation Advance Directives and Livin g Will 02/06/2020 10:25 AM Documents on File Type Date Recorded Patient Transfer Agent Expl anation Advance Directives and Livin g Will 04/08/2020 10:25 AM Documents on File Type Date Recorded Patient Transfer Agent Expl anation Advance Directives and Livin g Will 04/23/2020 2:48 PM Documents on File Type Date Recorded Patient Transfer Agent Expl anation ACP-Advance Directive ACP-Power of Glass Bulb Machine Adjuster Latest Code Status on File Code Status Date Activated Date Inactivated Comments Full Code 06/17/2020 6:10 AM 06/17/2020 3:10 PM Latest Code Status on File Code Status Date Activated Date Inactivated Comments Full Code 06/17/2020 6:10 AM Documents on File Type Date Recorded Patient Transfer Agent Expl anation Advance Directives and Livin g Will 04/23/2020 2:48 PM Not in [place] Advance Directive Response Recorded Date/ Time Living Will No October 15, 2020 5:05pm Power of Glass Bulb Machine Adjuster No October 15 5:05pm Advance Directive Response Recorded Date/ Time Living Will No October 15, 2020 4:05pm Power of Glass Bulb Machine Adjuster No October 15 4:05pm Advance Directive Response Recorded Date/ Time Living Will No October 15, 2020 5:05pm Do you have a Healthcare Power of Glass Bulb Machine Adjuster? No October 15, 2020 5:05pm Date Activated Date Inactivated Comments 04/12/2025 12:56 AM Question Answer Comments Documentation of decision pr ocess for this code status: Discussed with patient or surrogate. This is the code status chosen by the patient/surrogate. History of Present Illness * Matt Hernandez MD - 05/08/2017 6:06 PM EDT Formatting of this note may be different from the original. Subjective: Patient ID: Nash Ferguson is a 66 y.o. male. SUSIE Kingston presents today for interval visit. He has a history of diabetes and narcolepsy. His oaviO5r was performed in 2016 his result was [...] Varicosities of leg in this encounter* Mark Odell MD - 07/05/2018 7:30 PM EST Formatting [...] me. Best wishes and warm regards Mark Odell MD Portions of this note utilized Egnyte dictation software, please excuse any typographical or [...] Pain at the time of this visit 2-3, average pain in the last 24 hours, 2-3, average pain in the last 7 days, 2-3; number of days in the last 7 days, 7 or above, 0/7 , lowest painlevel in the last 7 days, 2 Exacerbating/relieving factors: issues at work with flare of pain in fingers , wrist and knees. Adverse effects of medications: no issues with sedation or slurred speech constipation OARRS/KIERANxCHECK Report Received and Assessed: 08/17/18 Functional Assessment: Patient has a slight limp to his walk slowly from a sitting to standing position. Abnormal chest x-ray: Patient presents today concerned because he recently was told that he had COPD as a result of the findings on screening chest x-ray ordered by instant potato processor. Patient was then called by the instant potato processor office and said it needed to be evaluated by PCP and probable referral to automatic seamer prior to being started on the biologic. [...] have suggested the patient that if the instant potato processor requires consultation with a automatic seamer we would be happy to oblige. He [...] a day, pravastatin 20 mg tablet daily. Nrhbx-re-rinr testing today hemoglobin A1c: 5.7. Psoriatic arthritis: Patient currently is being seen at the [facility] department of rheumatology. He he is currently taking Otezla 30 mg once a day. Upon completion of the evaluation by automatic seamer the plan is to start him on [...] Take 200 mg by mouth daily . qxbl-nnry-esm-cbd-xrh-quau-hor [phone] mg Tab Take 1 tablet by mouth [...] following: Height as of this encounter: 6' 3. Weight as of this encounter: 117.9 kg [...] remittive therapy for his psoriasis and the instant potato processor ordered chest x- ray which suggested lung [...] Pain at the time of this visit 2-3, average pain in the last 24 hours, 2-3, average pain in the last 7 days, 2-3; number of days in the last 7 [...] following: Height as of this encounter: 6' 3. Weight as of this encounter: 119.3 kg [...] understand their medications Are you taking any yrwa-psz-yakhwma medications or supplements? Patient Response: yes Since last being seen in this office, have you seen another healthcare provider? Patient Response: Yes. If yes, where did you see this provider? 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 Outpatient sugery Dr.Suppan Humphries TOTAL HIP ARTHROPLASTY Bilateral 2012 left september 2011 and right july 2012. [facility]. URETHRA SURGERY 2009 Dr. Fabrizio Galdamez Tye - urethral stricture Family History Problem Relation [...] topically 2 (two) times a day . mckv-ylhd-djp-dzg-mcw-ehdf-hor [phone] mg Tab vitamin C 1000 MG tablet Generic drug: ascorbic acid (vitamin C) VITAMIN D3 5,000 unit Tab tablet Generic drug: cholecalciferol (vitamin D3) zinc 50 mg Tab Where to Get Your Medications These medications were sent to [facility]/pharmacy #[id number] - [place], [place] - [address] [facility] [phone] [facility] , [place] [address] lisdexamfetamine 70 MG capsule lisdexamfetamine 70 MG [...] (VYVANSE) 70 MG capsule (Start on 01/16/2019) OARRS/NARLuis Manuel Report Received and Assessed: 11/17/18 Date controlled [...] the medications. documented in this encounter* Mark Odell MD - 12/06/2018 12:48 PM EDT General Cardiology Clinic Follow-up Heart & Vascular [facility] 12/06/2018 Mark Odell MD [address] [facility] [address] Patient: Nash Ferguson Date of : 1950 [...] ECG 12 lead Final Result by Mark Odell MD (12/06/2018 1247) Review of Systems: The [...] by mouth daily (supplied 30 days) . xeek-kljw-xpa-vpu-tkz-nyeg-hor [phone] mg Tab Take 1 tablet by mouth [...] not nervous/anxious. documented in this encounter* Mark Odell MD - 02/06/2020 4:26 PM EDT Interventional Cardiology Clinic Follow-up Heart & Vascular [facility] 02/06/2020 Mark Odell MD [address] [place] [address] Patient: Nash Ferguson Date of : 1950 (69 y.o.) PCP: Matt Hernandez MD Assessment & Plan No problem-specific Assessment & Plan notes found for this encounter. Follow-up: No follow-ups on file. Chief Complaint: Annual Exam (s/p d/c [facility] for confusion. work up unremarkable) Subjective History of Present Illness: Nash Ferguson is a 69 y.o. male Objective Imaging: I independently reviewed the EKG and agree with the interpretation(s) with the following comments. ECG 12 lead Final Result by Mark Odell MD (12/06/2018 1247) Review of Systems: The [...] EDT Neurology Consultation Note Isai Page MD [facility] - Neurology [address] [place] [address] (office) / [phone] (fax) Patient Name: Nash Ferguson : 1950 MR #: [id number] Date of Neurology Consult: 03/11/20 Chief Complaint: transient global amnesia Assessment and Plan: Nash Ferguson was seen in consultation at the request of Dr. Odell I agree with the diagnosis. 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 His brain MRI was negative. He is scheduled to have an echocardiogram, with which I also agree. 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 Nash Ferguson was seen in consultation today at the request of Dr. Odell with the specific question of transient global [...] Labs from the PCP reviewed: Date: 01/13/2028 [facility] CBC with differential normal Urinalysis negative [...] in attendance. documented in this encounter* Mark Odell MD - 09/15/2020 4:36 PM EST Interventional Cardiology Clinic Follow-up Heart & Vascular [facility] 09/10/2020 Mark Odell MD [address] [place] [id number] Patient: Nash Ferguson Date of : 1950 [...] ECG 12 lead Final Result by Mark Odell MD (12/06/2018 1247) Echocardiogram complete with bubble [...] not nervous/anxious. documented in this encounter* Mark Odell MD - 09/15/2020 4:36 PM EST Interventional Cardiology Clinic Follow-up Heart & Vascular [facility] 09/10/2020 Mark Odell MD [address] [place] [id number] Patient: Nash Ferguson Date of : 1950 [...] months (around 03/10/2021) for Physician Visit in [place]. Chief Complaint: Follow-up (no complaints. no epsiodes of confusion since last OV. ) Subjective History of Present Illness: Nash Ferguson is a 69 y.o. male who comes in today with his for routine cardiac follow-up. Since I last saw him, he has not had any recurrent issues with memory loss. He did see a neurologist in [place] who agreed with the diagnosis of transient global amnesia. It was felt to be related to lack of sleep. He has had left wrist surgery and he did well from a cardiac standpoint. Overall, he appears to be doing well from a cardiac standpoint. Objective ECG 12 lead Final Result by Mark Odell MD (12/06/2018 1247) Echocardiogram complete with bubble study Final Result by iVktor Gregory MD (04/23/2020 1646) Review of Systems: [...] hyperlipidemia type Procedures ECG 12 lead Mark Odell MD [address] [place] [address] Status Reason Specialty Diagnoses / Procedures Referred By Contact Referred To Contact Closed Cardiology Diagnoses Newly recognized heart murmur Sraah Loera, SENIOR CONTROLS ANALYST [address] [place] [address] Mark Odell MD [address] [facility] [address] [place] [id number] Status Reason Specialty Diagnoses / Procedures Referred By Contact Referred To Contact New Request Cardiology Diagnoses 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 Procedures Echocardiogram complete with bubble study Mark Odell MD [address] [facility] [address] [place] [address] Status Reason Specialty Diagnoses / Procedures Referred By Contact Referred To Contact Authorized Cardiology Diagnoses Transient global amnesia Transient confusion Procedures Carotid Duplex Mark Odell MD [address] [facility] [address] [place] [address] Status Reason Specialty Diagnoses / Procedures Referred By Contact Referred To Contact Authorized Radiology Diagnoses TGA (transient global amnesia) Procedures MRA Neck With Contrast Isai Page MD [address] [place] [address] Status Reason Specialty Diagnoses / Procedures Referred By Contact Referred To Contact Authorized Radiology Diagnoses TGA (transient global amnesia) Procedures MRA Brain Without Contrast Isai Page MD [address] [place] [address] Status Reason Specialty Diagnoses / Procedures Referre d By Contact Referred To Contact Closed Radiology Diagnoses TGA (transient global amnesia) Procedures MRA Neck With Contrast Isai Page MD [address] [facility] [address] [place] [id number] Status Reason Specialty Diagnoses / Procedures Referre d By Contact Referred To Contact Closed Radiology Diagnoses TGA (transient global amnesia) Procedures MRA Brain Without Contrast Isai Page MD [address] [facility] [address] [place] [phone] Status Reason Specialty Diagnoses / Procedures Referre d By Contact Referred To Contact Closed Cardiology Diagnoses Transient alteration of awareness Transient confusion Procedures Echocardiogram complete with bubble study Mark Odell MD [address] [place] [address] Discharge Instructions * Instructions* Maria Eugenia Fine [...] Care Everywhere. * Carpal Tunnel Release: Post-op (Tanzanian) * Carpal Tunnel Release: Pre-op (Tanzanian) documented in this encounter* Instructions* Divina Wing MD - 06/17/2020 Keep wrist bandage [...] encounter Chief Complaint CT results and PSA Chief Complaint and Reason for Visit Chief Complaint ABN EKG MURMUR Reason for Visit Aortic valve stenosi s Chief Complaint Needs new pap evita e JAYA; BIPAP S *DEVICE TAGGED AC10 Reason for Visit Obesity JAYA (obstructive sleep apnea) Chief Complaint Admit Date 1 Y FU November 05, 2024 10:4 6am G47.33 - Obstructive sleep apnea (adult) (pediatri November 06, 2024 1:00pm Reason for Visit Admit Date Obesity November 05, 2024 10:4 6am JAYA (obstructive sleep apnea) November 05, 2024 10:46am Chief Complaint Admit Date 1 Y FU November 05, 2024 10:4 6am G47.33 - Obstructive sleep apnea (adult) (pediatri November 06, 2024 1:00pm 1 Y FU December 18, 2024 3:36p m Chief Complaint Admit Date I49.1 - Atrial premature depolarization May 01, 2025 6:36am CVA May 07, 2025 2: 30pm STROKE May 08, 2025 9: 05am Reason for Visit Admit Date CVA (cerebral vascular accident) May 08, 2025 9:05am Right homonymous hemianopsia May 9:05am Chief Complaint Admit Date I49.1 - Atrial premature depolarization May 01, 2025 6:36am STROKE May 08, 2025 9: 05am S/P METRO 04/16May 13, 2025 1 0:04am STROKE May 14, 2025 4 :16pm CVA May 27, 2025 1 1:30am Reason for Visit Admit Date CVA (cerebral vascular accident) May 08, 2025 9:05am Right homonymous hemianopsia May 9:05am CVA (cerebral vascular accident) May 13, 2025 10:04am Diabetes mellitus May 13, 2025 1 0:04am Aortic valve stenosis May 13, 2025 10:04am PVD (peripheral vascular disease) Octobe r 2024 10:04am Additional Source Comments Assessment & Plan Note [...] and allow cool down until at least chcf back to the pre exercise hear rate. [...] frequently. So need to create a physicologic flush. You are probably having sleep deficiency that [...] ized section and content) DATE CREATED AUTHOR 01/20/2018 [facility] DATE CREATED AUTHOR 'S RAYNE HOPSON 01/25/2018 [facility] DATE CREATED AUTHOR AUTHOR'S ORGANIZ ATION [facility] DATE CREATED AUTHOR AUTHOR'S ORGANIZ ATION 09/03/2020 [facility] DATE CREATED AUTHOR AUTHOR'S ORGANIZ ATION 07/26/2021 [facility] ([place]) DATE CREATED AUTHOR AUTHOR'S ORGANIZ ATION 08/03/2021 [facility] DATE CREATED AUTHOR AUTHOR'S ORGANIZ ATION 02/23/2022 [employer] DATE CREATED AUTHOR AUTHOR'S ORGANIZ ATION 04/10/2022 [facility] DATE CREATED AUTHOR AUTHOR'S ORGANIZ ATION 11/20/2022 [facility] DATE CREATED AUTHOR AUTHOR'S ORGANIZ ATION 09/16/2023 [facility] DATE CREATED AUTHOR AUTHOR'S ORGANIZ ATION 12/15/2023 [facility] ([place]) DATE CREATED AUTHOR AUTHOR'S ORGANIZ ATION 12/16/2024 [facility] DATE CREATED AUTHOR AUTHOR'S ORGANIZ ATION 04/20/2025 [facility] DATE CREATED AUTHOR AUTHOR'S ORGANIZ ATION 05/04/2025 [facility] DATE CREATED AUTHOR AUTHOR'S ORGANIZ ATION 06/08/2025 [facility] Reason for Visit (unrecogniz ed section and content) Reason Comments Diabetes Wants A1C done, last done 12/17/16 result 6.4 ER Follow up Excessive bleeding f rom varicose vein in ankle area Medication Refill Mobic, Zoloft, Vivan ce, Compression Socks Rx Bloated Reason Comments Establish Care heart murmur, referr ed by Sarah Vazquez CNP. Pt states he was diagnosed with RBBB years ago. Last cardiac tests completed 10+ years ago. Status Reason Specialty Diagnoses / Procedures Referred By Contact Referred To Contact Closed Cardiology Diagnoses Newly recognized heart murmur Sarah Loera SENIOR CONTROLS ANALYST [address] [place] [address] Mark Odell MD [address] [place] [address] Reason Comments COPD Medication Refill Tramadol, Vyvanse, T riamcinolone cream Diabetes Reason Comments PFT results ADHD Reason Comments ADHD Medication Refill vyvanse and tramadol Reason Comments Follow-up pt denies any cardia c concerns for todays visit Reason Comments Annual Exam s/p d/c [facility] for conf usion. work up unremarkable Reason Comments transient global amnesia Status Reason Specialty Diagnoses / Procedures Referred By Contact Referred To Contact Closed Specialty Services Required/Patient' s Best Interest Neurology Diagnoses TGA (transient global amnesia) Mark Odell MD [address] [facility] [address] [place] [address] Isai Page MD [address] [place] [address] Status Reason Specialty Diagnoses / Procedures Referre d By Contact Referred To Contact Closed Radiology Diagnoses TGA (transient global amnesia) Procedures MRA Neck With Contrast Isai Page MD [address] [place] [address] Status Reason Specialty Diagnoses / Procedures Referre d By Contact Referred To Contact Closed Radiology Diagnoses TGA (transient global amnesia) Procedures MRA Brain Without Contrast Isai Page MD [address] [place] [address] Status Reason Specialty Diagnoses / Procedures Referre d By Contact Referred To Contact Closed Cardiology Diagnoses Transient alteration of awareness Transient confusion Procedures Echocardiogram complete with bubble study Mark Odell MD [address] [facility] [address] [place] [address] Reason Comments Follow-up no complaints. no ep siodes of confusion since last OV. Reason Comments Medication Refill Pravastatin Reason Comments Follow-up 6 months f/u without medication list/bottles Reason Comments Medication Refill Reason Comments Other dis of neurol system Right sided w eakness and numbness started at 1900 per pt he also had slurred speech when ems arrived symptoms improved mildly coming from [facility], when transfer here pt stated no longer feeling weak Specialty Diagnoses / Procedures Referred By Jonathan t Referred To Contact Emergency Medicine Diagnoses Ataxia, unspecified Unspecified symptoms and signs involving general sensations and perceptions 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) Procedures NA THE [facility] [place] [address] Phone: tel: [facility] [place] [address] Phone: tel: Referral ID Status Reason Start Date Expiration Date Visits Re quested Visits Authorized [id number] 3 3 Care Teams (unrecognized sec tion and content) Key Cutter Relationship Specialty Start Date End Date System, Provider Not In PCP - General 07/01/21 Mark Odell MD Consulting Physician Cardiology 03/11/20 Key Cutter Relationship Specialty Start Date End Date Sarah Loera SENIOR CONTROLS ANALYST PCP - General Nurse Practitioner 11/07/18 02/21/19 Matt Hernandez MD PCP - General Family Medicine 02/22/19 01/08/20 System, Provider Not In PCP - General 07/01/21 Mark Odell MD Consulting Physician Cardiology 03/11/20 Key Cutter Relationship Specialty Start Date End Date Matt Hernandez MD PCP - General Family Medicine 05/01/16 11/06/18 Sarah Loera, SENIOR CONTROLS ANALYST PCP - General Nurse Practitioner 11/07/18 02/21/19 Matt Hernandez MD PCP - General Family Medicine 02/22/19 01/08/20 System, Provider Not In PCP - General 07/01/21 Mark Odell MD Consulting Physician Cardiology 03/11/20 Team Status: Active Member Role Status Dates Dr. Matt Hernandez MD Family Provider Active Josefina Zavaleta SENIOR ACCOUNTS PAYABLE CLERK, SENIOR ACCOUNTS PAYABLE CLERK-C Primary Care Provider Activ e Team Status: Inactive Member Role Status Dates Dr. Matt Hernandez MD Primary Care Provider, Referring P horace Active Dr. Topher Poe MD Attending Provider Active Team Status: Active Member Role Status Dates Josefina Zavaleta SENIOR ACCOUNTS PAYABLE CLERK, SENIOR ACCOUNTS PAYABLE CLERK-C Primary Care Provider Activ e Dr. Topher Poe MD Attending Provider Active Team Status: Inactive Member Role Status Dates Josefina Zavaleta SENIOR ACCOUNTS PAYABLE CLERK, SENIOR ACCOUNTS PAYABLE CLERK-C Primary Care Provider Activ e Dr. Topher Poe MD Attending Provider, Referring Pro vider Active Team Status: Inactive Member Role Status Dates Josefina Zavaleta SENIOR ACCOUNTS PAYABLE CLERK, SENIOR ACCOUNTS PAYABLE CLERK-C Primary Care Provider, Refe rring Provider Active Sarah Robins SENIOR ACCOUNTS PAYABLE CLERK, SENIOR ACCOUNTS PAYABLE CLERK-C Attending Provider Active Team Status: Inactive Member Role Status Dates Josefina Zavaleta SENIOR ACCOUNTS PAYABLE CLERK, SENIOR ACCOUNTS PAYABLE CLERK-C Primary Care Provider Activ e Sarah Robins SENIOR ACCOUNTS PAYABLE CLERK, SENIOR ACCOUNTS PAYABLE CLERK-C Attending Provider Active Team Status: Active Member Role Status Dates Josefina Zavaleta SENIOR ACCOUNTS PAYABLE CLERK, SENIOR ACCOUNTS PAYABLE CLERK-C Primary Care Provider Activ e Team Status: Inactive Member Role Status Dates Josefina Zavaleta SENIOR ACCOUNTS PAYABLE CLERK, SENIOR ACCOUNTS PAYABLE CLERK-C Primary Care Provider Activ e Start: November 05, 2024 End: November 05, 2024 Josefina Zavaleta SENIOR ACCOUNTS PAYABLE CLERK, SENIOR ACCOUNTS PAYABLE CLERK-C Referring Provider Active Start: November 05, 2024 End: November 05, 2024 Sarah Robins SENIOR ACCOUNTS PAYABLE CLERK, SENIOR ACCOUNTS PAYABLE CLERK-C Attending Provider Active Start: November 05, 2024 End: November 05, 2024 Team Status: Inactive Member Role Status Dates Josefina Zavaleta SENIOR ACCOUNTS PAYABLE CLERK, SENIOR ACCOUNTS PAYABLE CLERK-C Primary Care Provider Activ e Start: November 06, 2024 End: November 06, 2024 Sarah Robins SENIOR ACCOUNTS PAYABLE CLERK, SENIOR ACCOUNTS PAYABLE CLERK-C Attending Provider Active Start: November 06, 2024 End: November 06, 2024 Sarah Robins SENIOR ACCOUNTS PAYABLE CLERK, SENIOR ACCOUNTS PAYABLE CLERK-C Referring Provider Active Start: November 06, 2024 End: November 06, 2024 Team Status: Inactive Member Role Status Dates Josefina Zavaleta SENIOR ACCOUNTS PAYABLE CLERK, SENIOR ACCOUNTS PAYABLE CLERK-C Primary Care Provider Activ e Start: December 18, 2024 End: December 18, 2024 Josefina Zavaleta NP, SENIOR ACCOUNTS PAYABLE CLERK-C Referring Provider Active Start: December 18, 2024 End: December 18, 2024 Dr. Topher Poe MD Attending Provider Active S tart: December 18, 2024 End: December 18, 2024 Team Status: Active Member Role/Relationship Status Dates Josefina Zavaleta NP, SENIOR ACCOUNTS PAYABLE CLERK-C Primary care physician Acti ve Team Status: Active Member Role/Relationship Status Dates Dr. Topher Poe MD Attending physician Active Start: May 01, 2025 Dr. Topher Poe MD Referring Provider Active S tart: May 01, 2025 Josefina Zavaleta NP, SENIOR ACCOUNTS PAYABLE CLERK-C Primary care physician Acti ve Start: May 01, 2025 Team Status: Active Member Role/Relationship Status Dates Josefina Zavaleta NP, SENIOR ACCOUNTS PAYABLE CLERK-C Primary care physician Acti ve Start: May 07, 2025 Dr. Abby Alonso DO Attending physician Active Start: May 07, 2025 Dr. Abby Alonso DO Referring Provider Active Start: May 07, 2025 Team Status: Inactive Member Role/Relationship Status Dates Josefina Zavaleta NP, SENIOR ACCOUNTS PAYABLE CLERK-C Primary care physician Acti ve Start: May 08, 2025 End: May 08, 2025 Josefina Zavaleta NP, SENIOR ACCOUNTS PAYABLE CLERK-C Referring Provider Active Start: May 08, 2025 End: May 08, 2025 CORI AmbroseC Attending physician Active Start: May 08, 2025 End: May 08, 2025 Team Status: Active Member Role/Relationship Status Dates Dr. Abby Alonso DO Primary care physician Active Team Status: Inactive Member Role/Relationship Status Dates Josefina Zavaleta NP, SENIOR ACCOUNTS PAYABLE CLERK-C Primary care physician Acti ve Start: May 08, 2025 End: May 08, 2025 Josefina Zavaleta NP, SENIOR ACCOUNTS PAYABLE CLERK-C Referring Provider Active Start: May 08, 2025 End: May 08, 2025 CORI AmbroseC Attending physician Active Start: May 08, 2025 End: May 08, 2025 Team Status: Inactive Member Role/Relationship Status Dates Josefina Zavaleta NP, SENIOR ACCOUNTS PAYABLE CLERK-C Referring Provider Active Start: May 13, 2025 End: May 13, 2025 Matt H Roof SENIOR ACCOUNTS PAYABLE CLERK, SENIOR ACCOUNTS PAYABLE CLERK-C Attending physician Active Start: May 13, 2025 End: May 13, 2025 Dr. Abby Alonso DO Primary care physician Active Start: May 13, 2025 End: May 13, 2025 Team Status: Inactive Member Role/Relationship Status Dates CLARISSA Ambrose Attending physician Active Start: May 14, 2025 End: May 14, 2025 Jeremy Frias NP-Wan Referring Provider Active S tart: May 14, 2025 End: May 14, 2025 Dr. Abby Alonso DO Primary care physician Active Start: May 14, 2025 End: May 14, 2025 Team Status: Active Member Role/Relationship Status Dates Josfeina Zavaleta NP, SENIOR ACCOUNTS PAYABLE CLERK-C Primary care physician Acti ve Start: May 27, 2025 Dr. Abby Alonso DO Attending physician Active Start: May 27, 2025 Dr. Abby Alonso DO Referring Provider Active Start: May 27, 2025 Care Team (unrecognized sect ion and content) Care Team Personnel Name: MARTA SOLORIO Position: P4 Advanced Practice Nurse Member Role: Primary Care Physician Address: Address: [address] [place] [address] Care Team Related Persons Name: DOTTIE FERGUSON Address: Home [address] [place] [phone] [place] Name: DOTTIE ESCOBAR Care Team Personnel Name: MARTA SOLORIO Position: P4 Advanced Practice Nurse Med Service: Active Provider Member Role: Primary Care Physician Address: Address: [address] [place] [address] Care Team Related Persons Name: DOTTIE FERGUSON Address: Home [address] [place] [phone] [place] Name: DOTTIE ESCOBAR Care Team Personnel Name: MARTA SOLORIO Position: P4 Advanced Practice Nurse Med Service: Active Provider Member Role: Primary Care Physician Address: Address: [address] [place] [address] Care Team Related Persons Name: DOTTIE FERGUSON Address: Home [address] [place] [phone] [place] Name: DOTTIE ESCOBAR Care Team Personnel Name: MARTA SOLORIO APRN-SENIOR CONTROLS ANALYST Position: P4 Advanced Practice Nurse Med Service: Active Provider Member Role: Primary Care Physician Address: Address: [address] [place] [address] Care Team Related Persons Name: DOTTIE FERGUSON Address: [address] [phone] [place] Name: DOTTIE ESCOBAR Care Team Personnel Name: WAQAR JOSEFINA Narda DEVINE-SENIOR CONTROLS ANALYST Position: P4 Advanced Practice Nurse Member Role: Primary Care Physician Address: Address: [address] [place] [address] Care Team Related Persons Name: DOTTIE FERGUSON Address: [address] [phone] [place] Name: DOTTIE ESCOBAR Goals (unrecognized section and content) Goals may be documented in a n alternate section Scheduled Active and Recently Administ ered Medications (unrecognized section and content) Medication Order 04/11/2025 04/12/2025 04/13/2025 acetaminophen (TYLENOL) tablet (COMPLETED) 650 mg, Oral, ONCE, 1 dose, On Tue04/12/25 at 0200 0236 (Given - Provider: Lily Vazquez RN) aspirin EC tablet (COMPLETED) 325 mg, Oral, ONCE, 1 dose, On Tue04/12/25 at 0400 0455 (Given - Provider: Lily Vazquez RN) aspirin EC tablet 81 mg, Oral, DAILY, First dose on Tue04/13/25 at 0900, Until Discontinued 1030 (Given - Provider: Pedro Ruelas, RN) clopidogrel (PLAVIX) 75 MG tablet 75 mg, Oral, DAILY, First dose on Tue04/12/25 at 1330, Until Discontinued 1349 (Given - Provider: Coty Gregg, LOS) 1030 (Given - Provider: Pedro Ruelas, RN) enoxaparin (LOVENOX) 40 MG/0.4ML injection 40 mg 40 mg, Subcutaneous, DAILY, First dose on Tue04/12/25 at 0900, Until Discontinued 1022 (Given - Provider: Coty Gregg RN) 1030 (Given - Provider: Pedro Ruelas RN) ezetimibe (ZETIA) 10 MG tablet 10 mg, Oral, DAILY, First dose on Tue04/13/25 at 0900, Until Discontinued 1030 (Given - Provider: Pedro Ruelas RN) insulin regular (HumuLIN R) 100 UNIT/ML injection 0-12 Units, Subcutaneous, 4 TIMES DAILY BEFORE MEALS & AT BEDTIME, First dose on Tue04/12/25 at 0800, Until Discontinued 0800 (Hold/Not Given - Provider: Coty Gregg RN)1200 (Hold/Not Given - Provider: Coty Gregg RN - Reason: Not indicated)1700 (Hold/Not Given - Provider: Coty Gregg RN - Reason: Not indicated)2200 (Hold/Not Given - Provider: Tiesha Martinez RN - Reason: Not indicated) 0800 (Hold/Not Given - Provider: Pedro Ruelas RN - Reason: Not indicated)1200 (Hold/Not Given - Provider: Pedro Ruelas RN - Reason: Not indicated)1700 (Due)2200 (Due) iohexol (OMNIPAQUE) 350 MG/ML injection (COMPLETED) 75 mL, Intravenous, Once at Radiology exam, 1 dose, Starting on Tue04/11/25 at 2321, Until Tue04/11/25 at 2321, Imaging Protocol Orders 2321 (Bolus given - Provider: Ritika Crawford) lactated ringers iv bolus (COMPLETED) 500 mL, at 150 mL/hr, Intravenous, FLUID BOLUS, 1 dose, On Tue04/12/25 at 0400 0458 (IV New Bag - Provider: Lily Vazquez RN) pravastatin (PRAVACHOL) tablet 20 mg, Oral, AT BEDTIME, First dose on Tue04/12/25 at 2200, Until Discontinued 221 (Given - Provider: Tiesha Martinez RN) 2200 (Due) sertraline (ZOLOFT) tablet 100 mg, Oral, DAILY, First dose on Tue04/12/25 at 0900, Until Discontinued 1022 (Given - Provider: Coty Gregg RN) 1030 (Given - Provider: Pedro Ruelas RN) PRN Medication Order 04/11/2025 04/12/2025 04/13/2025 acetaminophen (TYLENOL) tablet 650 mg, Oral, EVERY 4 HOURS PRN, Starting on Tue04/12/25 at 2218, Until Discontinued, Mild Pain (pain score 1,2,3), Moderate Pain (pain score 4,5,6), Severe Pain (pain score 7,8,9,10) 2225 (Given - Provider: Tiesha Martinez RN) FOR RECORDS PERTAINING TO PATIENTS WHO ARE [...] BE BASED ON THE PRIMARY CLINICAL RECORDS. [employer] [facility]. provides no warranty or guarantee of the accuracy or completeness of information in this document.
--- NOTE | 2025-07-10 08:45 | CL.IE_ITS ---
Patient: NASH FERGUSON Study Date: 07/10/2025 Performing: Topher Poe MD : 1950 Age: 74 Gender: male PROCEDURES PERFORMED LP01-([id number])INSERTION OF LOOP RECORDER INDICATIONS Cryptogenic stroke PROCEDURE DETAILS The patient was brought to the Catheterization Lab in the postabsorptive nonsedated state. Informed consent was obtained prior to the procedure. Local anesthetic was given subcutaneously to the left upper chest area with Lidocaine 2%. Incision was made to the left upper chest. Steri-strips applied to Lt chest area. The patient tolerated the procedure well. Estimated Blood Loss: < 10 mls IMPLANTED / EX-PLANTED DEVICES IMPLANTED DEVICE(S): ICM Loop Recorder - Marketing Program Coordinator: [employer], Model # [id number] , Serial # [id number] DEVICE PARAMETERS CONCLUSIONS / RECOMMENDATIONS Device Conclusions: Successful implantation of a patient activated loop recorder. Device Recommendations: Follow up with Primary Care Physician PROCEDURE MEDICATIONS Versed 1 mg IV Fentanyl 50 mcg IV Versed 1 mg IV Oxygen: 2 L/min via nasal cannula Vancomycin 1 Gm 07/10/2025 07:41:02 Signed By Topher Poe MD On 07/10/2025 08:44:33 Topher Poe MD
== END 2025-07-10 09:40 | disposition home or self-care (01) ==
PROVIDERS: PCP Student in an Organized Health Care Education/Training Program; Referring Provider Internal Medicine Cardiovascular Disease; Visit Provider Internal Medicine Cardiovascular Disease
DX: Z45.09 Encounter for adjustment and management of other cardiac device (principal); E11.9 Type 2 diabetes mellitus without complications; I10 Essential (primary) hypertension; Z79.82 Long term (current) use of aspirin; Z79.899 Other long term (current) drug therapy; Z79.85 Long-term (current) use of injectable non-insulin antidiabetic drugs; E78.5 Hyperlipidemia, unspecified; E66.9 Obesity, unspecified; I35.0 Nonrheumatic aortic (valve) stenosis; Z86.73 Personal history of transient ischemic attack (TIA), and cerebral infarction without residual deficits; I49.1 Atrial premature depolarization; I45.2 Bifascicular block
CPT/HCPCS: 33285; 99152; A4216